=== PATIENT | female | born 1965 | race American Indian/Alaskan Native ===

== ENCOUNTER 2016-09-14 08:41 | Inpatient (IN) | payer MEDICAID, OTHER ==
[2016-09-14 08:46] VITALS: BMI 21.4
--- NOTE | 2016-09-14 09:07 | ED PDOC ---
Arrival/HPI - General Chief Complaint: Chest Pain Time Seen by Provider: 09/14/16 08:45 Historian: Patient - History of Present Illness Narrative History of Present Illness (Text): 09/14/16 09:03 Codi Pope is a 51 year old female, with a history of asthma, COPD, and emphysema, presents to the emergency department complaining of 5 day duration of chest pain and shortness of breath. States that pain is mostly on right- sided chest, which is worsened with deep inspiration. Also complains of neck and back pain which has been constant since onset. States she took Motrin yesterday for minimal relief. Denies fever, chills, headache, dizziness, nausea , vomiting, diarrhea, urinary symptoms, or any other complaints at this time. Time/Duration: < week (5 days ) Symptom Onset: Gradual Symptom Course: Unchanged Severity Level: Mild Activities at Onset: Light Past Medical History - Provider Review Nursing Documentation Reviewed: Yes - Pulmonary Hx Asthma: Yes Hx Chronic Obstructive Pulmonary Disease (COPD): Yes Hx Emphysema: Yes - Renal Other/Comment: "englarged kidney" - Psychiatric Hx Substance Use: No - Surgical History Other/Comment: Lung transplant. right breast surgery - Anesthesia Hx Anesthesia: Yes Family/Social History - Physician Review Nursing Documentation Reviewed: Yes Family/Social History: No Known Family HX Smoking Status: Light Smoker < 10 Cigarettes Daily Hx Alcohol Use: Yes Hx Substance Use: No Allergies/Home Meds Allergies/Adverse Reactions: Allergies No Known Allergies Allergy (Verified 09/14/16 08:46) Home Medications: Home Meds Medication Instructions Recorded Confirmed Unobtainable 09/14/16 09/14/16 Review of Systems - Review of Systems Constitutional: absent: Fatigue, Fevers Eyes: absent: Eye Pain ENT: absent: Hearing Changes Respiratory: SOB. absent: Cough, Sputum Cardiovascular: Chest Pain. absent: Palpitations Gastrointestinal: Abdominal Pain. absent: Diarrhea, Nausea, Vomiting Musculoskeletal: Back Pain, Neck Pain Skin: absent: Rash Neurological: absent: Headache, Dizziness, Focal Weakness Physical Exam - Physical Exam Narrative Physical Exam (Text): 09/14/16 09:07 Head: Atraumatic. Normocephalic. Eyes: PERRL. EOMI. Conjunctivae are not pale. ENT: Mucous membranes are moist and intact. Oropharynx is clear and symmetric. Neck: Supple. Full ROM. No JVD. No lymphadenopathy. upper thoracic midline tenderness to palpation. Cardiovascular: Regular rate. Regular rhythm. No murmurs, rubs, or gallops. Distal pulses are 2+ and symmetric. Radial pulses equal bilaterally. Pulmonary/Chest: Tachypneic. Palpable mid and right chest wall pain. No crepitus. Diminished breath sounds bilaterally. No wheezing, rales or rhonchi. Abdominal: Soft and non-distended. There is no tenderness. No rebound, guarding, or rigidity. No organomegaly. Good bowel sounds. Back: No CVA tenderness. Palpable right upper back pain, midline pain with no edema or erythema Extremities: No edema. No cyanosis. No clubbing. Full range of motion in all extremities. No calf tenderness. Skin: Skin is warm and dry. No petechiae. No purpura. No vesicular rash. Neurological: Alert, awake, and oriented to person, place, time, and situation. Normal speech. Motor and sensory intact Psychiatric: Good eye contact. Normal interaction, affect, and behavior. 09/14/16 15:04 Vital Signs Reviewed: Yes Vital Signs Temp Pulse Resp BP Pulse Ox 09/14/16 14:00 91 H 24 145/65 99 09/14/16 12:00 112 H 21 151/76 H 100 09/14/16 10:41 109 H 20 123/52 L 100 09/14/16 08:41 98.1 F 75 20 134/87 100 Temperature: Afebrile Blood Pressure: Normal Pulse: Regular Respiratory Rate: Normal Appearance: Positive for: Well-Appearing, Non-Toxic, Uncomfortable Pain Distress: Moderate Mental Status: Positive for: Alert and Oriented X 3 Medical Decision Making ED Course and Treatment: 09/14/16 09:09 Impression: A 51 year old female who presents to the emergency department complaining of chest pain, neck pain and back pain for past 5 days. Differential Diagnosis include but are not limited to: muscle strain vs. COPD vs. ACS Plan: -- EKG -- Labs, cardiac enzymes -- Chest X-ray -- Urinalysis -- Reassess and disposition Progress Notes: There is a palpable component to patient's chest and back pain. No trauma reported. No pneumothorax noted. Sats 100%, although patient feels SOB. Ddimer negative. No calf pain. She is a heavy smoker "recently quit". Duonebs and steroids given, on re-exam, less dyspneic, saturations remain 100%. Will admit to telemetry given hx of chest pain, as well as copd exacerbation. No trauma reported. No mediastinal widening. Patient's BP and pulse equal in both upper extremities. 09/14/16 10:17 Case discussed with , who is aware and agrees with the plan to admit patient to telemetry for COPD exacerbation. Accepts patient under hospitalist service. - Lab Interpretations Lab Results: 09/14/16 08:50 09/14/16 08:50 Lab Results 09/14/16 09:00: Urine Color Yellow, Urine Appearance Clear, Urine pH 6.5, Ur Specific Burke <= 1.005, Urine Protein Negative, Urine Glucose (UA) Negative, Urine Ketones Negative, Urine Blood Negative, Urine Nitrate Negative, Urine Bilirubin Negative, Urine Urobilinogen 0.2, Ur Leukocyte Esterase Negative 09/14/16 08:50: Sodium 139, Potassium 3.9, Chloride 104, Carbon Dioxide 25, Anion Gap 14, BUN 7, Creatinine 0.7, Est GFR ( Amer) > 60, Est GFR (Non- Af Amer) > 60, Random Glucose 110, Calcium 10.0, Total Bilirubin 1.0, AST 23, ALT 26, Alkaline Phosphatase 80, Lactate Dehydrogenase 367, Total Creatine Kinase 90, Troponin I < 0.01, Total Protein 7.8, Albumin 4.2, Globulin 3.6, Albumin/Globulin Ratio 1.2, Triglycerides 73, Cholesterol 214 H, LDL Cholesterol Direct 108, HDL Cholesterol 78 H 09/14/16 08:50: PT 10.9, INR 1.01, APTT 28.4, D-Dimer, Quantitative 0.19 09/14/16 08:50: WBC 5.2, RBC 4.66, Hgb 12.9, Hct 38.4, MCV 82.4, MCH 27.7, MCHC 33.6, RDW 13.6, Plt Count 277, MPV 9.4, Gran % 41.8 L, Lymph % (Auto) 50.2 H, Summers % (Auto) 6.6 H, Eos % (Auto) 1.0 L, Baso % (Auto) 0.4, Gran # 2.17, Lymph # 2.6, Summers # 0.3, Eos # 0.1, Baso # 0.02 I have reviewed the lab results: Yes - RAD Interpretation Radiology Orders: 09/14/16 09:02 CHEST PORTABLE [RAD] Stat - EKG Interpretation Interpreted by ED Physician: Yes Type: 12 lead EKG - Medication Orders Current Medication Orders: Acetaminophen (Tylenol 325mg Tab) 650 mg PO Q6H PRN PRN Reason: Fever >100.4 F Albuterol/Ipratropium (Duoneb 3 Mg/0.5 Mg (3 Ml) Ud) 3 ml IH Q4H KAYLEIGH Last Admin: 09/14/16 12:18 Dose: Albuterol/Ipratropium (Duoneb 3 Mg/0.5 Mg (3 Ml) Ud) 3 ml IH Q6H PRN PRN Reason: Shortness of Breath Stop: 09/15/16 00:46 Aspirin (Ecotrin) 81 mg PO DAILY KAYLEIGH Enoxaparin Sodium (Lovenox) 40 mg SC DAILY KAYLEIGH PRN Reason: Protocol Methylprednisolone (Solu-Medrol) 40 mg IVP Q12 KAYLEIGH Morphine Sulfate (Morphine) 2 mg IVP Q4 PRN PRN Reason: Pain, moderate (4-7) Last Admin: 09/14/16 13:33 Dose: 2 mg Pantoprazole Sodium (Protonix Ec Tab) 40 mg PO 0630 KAYLEIGH Discontinued Medications Albuterol/Ipratropium (Duoneb 3 Mg/0.5 Mg (3 Ml) Ud) 3 ml IH Q15M KAYLEIGH Stop: 09/14/16 10:31 Last Admin: 09/14/16 12:18 Dose: Aspirin (Aspirin Chewable) 81 mg PO STAT STA Stop: 09/14/16 09:43 Last Admin: 09/14/16 09:57 Dose: 81 mg Methylprednisolone (Solu-Medrol) 125 mg IVP STAT STA Stop: 09/14/16 09:45 Last Admin: 09/14/16 09:57 Dose: 125 mg Morphine Sulfate (Morphine) 2 mg IVP STAT STA Stop: 09/14/16 09:43 Last Admin: 09/14/16 09:57 Dose: 2 mg Re-Assess: LEONIE Pain Assessment Document 09/14/16 10:57 JOL (Rec: 09/14/16 12:17 [id number] Pain Reassessment Is this a pain reassessment? Yes Sleep Is patient sleeping during reassessment? No Presence of Pain Presence of Pain No - Scribe Statement The provider has reviewed the documentation as recorded by the Giovani Patel Provider Attestation: All medical record entries made by the Giovani were at my direction and personally dictated by me. I have reviewed the chart and agree that the record accurately reflects my personal performance of the history, physical exam, medical decision making, and the department course for this patient. I have also personally directed, reviewed, and agree with the discharge instructions and disposition. Disposition/Present on Arrival - Present on Arrival Any Indicators Present on Arrival: No History of DVT/PE: No History of Uncontrolled Diabetes: No Urinary Catheter: No History of Decub. Ulcer: No History Surgical Site Infection Following: None - Disposition Have Diagnosis and Disposition been Completed?: Yes Diagnosis: Chest pain, COPD exacerbation, Back pain Disposition: HOSPITALIZED Disposition Time: 10:00 Patient Plan: Admission, Telemetry Patient Problems: Current Active Problems Problem Status Onset Back pain Acute COPD exacerbation Acute Chest pain Acute Condition: FAIR
[2016-09-14 09:08] LABS: ADD MANUAL DIFF? NO
[2016-09-14 09:20] LABS: ALB/GLOB RATIO 1.2 (1.1-1.8); ALKALINE PHOSPHATASE 80 U/L (38-133); ALT/SGPT 26 U/L (7-56); AST/SGOT 23 U/L (15-39); BLOOD UREA NITROGEN 7 mg/dL (7-21); CARBON DIOXIDE 25 mmol/L (21-33); CHLORIDE 104 mmol/L (98-107); GFR AFRICAN-AMERICAN > 60; GLUCOSE,RANDOM 110 mg/dL (70-110); POTASSIUM 3.9 mmol/L (3.6-5.0); SODIUM 139 mmol/L (132-148); TOTAL PROTEIN 7.8 g/dL (5.8-8.3)
[2016-09-14 09:25] LABS: BASO # 0.02 K/mm3 (0.0-2.0); BASO % 0.4 % (0.0-3.0); EOS # 0.1 (0.0-0.7); GRAN # 2.17 (1.4-6.5); GRAN % 41.8 % (50.0-68.0); HEMATOCRIT 38.4 % (36.0-48.0); LYMPH # 2.6 (1.2-3.4); LYMPH % 50.2 % (22.0-35.0); MEAN CELL VOLUME 82.4 fL (80.0-105.0); MEAN CORPUSCULAR HEMOGLOBIN 27.7 pg (25.0-35.0); MEAN CORPUSCULAR HGB CONC 33.6 g/dl (31.0-37.0); MEAN PLATELET VOLUME 9.4 fl (7.0-11.0); MONO # 0.3 (0.1-0.6); MONO % 6.6 % (1.0-6.0); PLATELET COUNT 277 10^3/uL (120.0-450.0); RED CELL DISTRIBUTION WIDTH 13.6 % (11.5-14.5); WHITE BLOOD COUNT 5.2 10^3/ul (4.5-11.0)
[2016-09-14 09:32] LABS: TROPONIN I < 0.01 ng/mL
[2016-09-14] MEDS ORDERED: Morphine 2 mg/ml ISec IVP STA (09:42)
[2016-09-14] MEDS ORDERED: Albuterol-Ipratrop 3 mg / 0.5 (3 ml) UD IH STA (09:42)
[2016-09-14 09:45] LABS: INR 1.01 (0.93-1.08); PARTIAL THROMBOPLASTIN TIME 28.4 Seconds (23.7-30.8)
[2016-09-14 09:47] LABS: D DIMER 0.19 mg/L FEU (0-0.50)
[2016-09-14 09:52] LABS: PH,URINE 6.5 (4.7-8.0); URINE BILIRUBIN NEGATIVE (NEGATIVE); URINE BLOOD NEGATIVE (NEGATIVE); URINE GLUCOSE (UA) NEGATIVE (NEGATIVE); URINE KETONE NEGATIVE (NEGATIVE); URINE LEUKOCYTE ESTERASE NEGATIVE Leu/uL (NEGATIVE); URINE PROTEIN NEGATIVE mg/dL (<30 mg/dL); URINE UROBILINOGEN 0.2 E.U./dL (<1 E.U./dL)
[2016-09-14 10:03] LABS: URINE APPEARANCE CLEAR (CLEAR); URINE COLOR YELLOW (YELLOW)
--- NOTE | 2016-09-14 10:23 | RAD ---
HISTORY: chest pain COMPARISON: 01/23/2012 FINDINGS: LUNGS: No active pulmonary disease. PLEURA: No significant pleural effusion identified, no pneumothorax apparent. CARDIOVASCULAR: Normal. OSSEOUS STRUCTURES: No significant abnormalities. VISUALIZED UPPER ABDOMEN: Normal. OTHER FINDINGS: None. IMPRESSION: No active disease.
[2016-09-14] MEDS: Albuterol-Ipratrop 3 mg / 0.5 (3 ml) UD IH SCH ×6 (10:24→20:10)
--- NOTE | 2016-09-14 12:22 | CP.PCM.HP ---
<Katherine Garcia - Last Filed: 09/14/16 13:00> History of Present Illness - History of Present Illness History of Present Illness: 51 yo F w/PMhx of COPD, endocarditis, presents with 6 day history of chest pain and SOB. Chest pain is constant, in the R chest and radiation to L chest. SOB worsens with exertion. Denies F/N/V/abdominal pain, urinary or stool changes. PMhx: COPD, endocarditis Psxhx: chest tube due to prior pneumothorax Med: ventolin and incurza last filled in 2014 allergies: denies social: former smoker for one week, 0.5 pack per day for 30+ years. 3 servings of ETOH/week. denies illicit drugs family: pancreatic and gastric CA for mother. Present on Admission - Present on Admission Any Indicators Present on Admission: No Review of Systems - Review of Systems All systems: reviewed and no additional remarkable complaints except - Constitutional Constitutional: absent: Fever, Headache - Cardiovascular Cardiovascular: Chest Pain, Dyspnea - Respiratory Respiratory: Dyspnea. absent: Cough - Gastrointestinal Gastrointestinal: absent: Abdominal Pain, Diarrhea - Genitourinary Genitourinary: absent: Hematuria, Pyuria Past Patient History - Past Social History Smoking Status: Light Smoker < 10 Cigarettes Daily - PULMONARY Hx Asthma: Yes Hx Chronic Obstructive Pulmonary Disease (COPD): Yes Hx Emphysema: Yes - RENAL Other/Comment: "englarged kidney" - PSYCHIATRIC Hx Substance Use: No - SURGICAL HISTORY Other/Comment: Lung transplant. right breast surgery - ANESTHESIA Hx Anesthesia: Yes Meds Home Medications: Home Medication List Medication Instructions Recorded Confirmed Type Albuterol HFA [Ventolin HFA 90 2 puff IH [id number] #1 puff 09/15/16 Rx mcg/actuation (8 g)] Aspirin [Ecotrin] 81 mg PO DAILY #14 tab.ec 09/15/16 Rx Methylprednisolone [Medrol Dose See Taper PO DAILY #21 mg 09/15/16 Rx Pack (21 tabs)] oxyCODONE/Acetaminophen [Percocet 1 ea PO Q6 PRN #18 tab 09/15/16 Rx 5/325 mg Tab] Allergies/Adverse Reactions: Allergies Allergy/AdvReac Type Severity Reaction Status Date / Time No Known Allergies Allergy Verified 09/14/16 08:46 Physical Exam - Constitutional Appears: No Acute Distress - Head Exam Head Exam: ATRAUMATIC, NORMOCEPHALIC - Eye Exam Eye Exam: EOMI, Normal appearance - ENT Exam ENT Exam: Mucous Membranes Moist, Normal External Ear Exam - Respiratory Exam Respiratory Exam: Clear to Auscultation Bilateral, NORMAL BREATHING PATTERN Additional comments: tenderness upon palpation in mid chest and left chest - Cardiovascular Exam Cardiovascular Exam: Tachycardia, +S1, +S2 - GI/Abdominal Exam GI & Abdominal Exam: Soft. absent: Tenderness - Exam External exam: absent: Ecchymosis, Erythema - Extremities Exam Extremities exam: Positive for: pedal pulses present. Negative for: pedal edema , tenderness - Neurological Exam Neurological exam: Alert, Oriented x3 - Skin Skin Exam: Intact, Warm Results - Vital Signs Recent Vital Signs: Last Vital Signs Temp 98.1 F 09/14/16 08:41 Pulse 109 H 09/14/16 10:41 Resp 20 09/14/16 10:41 BP 123/52 L 09/14/16 10:41 Pulse Ox 100 09/14/16 10:41 - Labs Result Diagrams: 09/14/16 08:50 09/14/16 08:50 Assessment & Plan - Assessment and Plan (Free Text) Plan: 51 yo F w/PMHx of COPD, endocarditis, with 6 day hx of chest pain and SOB. CXR supports a COPD picture without other acute findings, Initial troponin under 0.01, and EXG is NSR. Tranferred to telemetry for COPD exacerbation and chest pain: Chest pain: initial troponin is under 0.01 EKG is NSR cardiac consult appreciated, Dr. Brady ASA 81 morphine 2mg IV q4 prn lipid panel f/u COPD: Dounebs q4h and prn solumedrol 40 q12 oxygen prn ordered neck and back pain: cervical and lumbar spine XR ordered morphine 2mg IV q4 prn PPx measures lovenox 40, protonix <Yesi LUNSFORD,Solange - Last Filed: 09/16/16 13:37> Results - Vital Signs Recent Vital Signs: Last Vital Signs Temp 97.9 F 09/15/16 12:00 Pulse 79 09/15/16 13:23 Resp 16 09/15/16 12:00 BP 112/69 09/15/16 12:00 Pulse Ox 96 09/15/16 05:19 - Labs Result Diagrams: 09/15/16 06:30 05/04/17 06:30 Labs: Laboratory Results - last 24 hr 09/15/16 14:00 Urine Opiates Screen Positive H Urine Methadone Screen Negative Ur Barbiturates Screen Negative Ur Phencyclidine Scrn Negative Ur Amphetamines Screen Negative U Benzodiazepines Scrn Negative U Oth Cocaine Metabols Negative U Cannabinoids Screen Negative Attending/Attestation - Attestation I have personally seen and examined this patient.: Yes I have fully participated in the care of the patient.: Yes I have reviewed all pertinent clinical information: Yes Notes (Text): 09/16/16 13:34 Patient was seen and examined with medical supply technician .Agreed with resident assessment and plan. 51 yo F with PMH of COPD, Chronic smoking, SP right lung collapse , osteoarthiritis is admitted with atypical chest pain,back pain , also has COPD exacerbation.EKG is negative for ischemic changes, has chest wall tenderness. Patient will be admitted in tele, will get serial troponin, will start on NEBS/ Steroid.We will get Cardiology consult.We will also get X rays of Neck and back. Management plan was discussed in detail with patient Education was provided.
[2016-09-14] MEDS ORDERED: Albuterol-Ipratrop 3 mg / 0.5 (3 ml) UD IH PRN (12:35)
[2016-09-14] MEDS: Morphine 2 mg/ml ISec IVP PRN ×2 (13:33→17:10)
[2016-09-14 14:36] LABS: CHOLESTEROL 214 mg/dL (130-200)
--- NOTE | 2016-09-14 15:02 | RAD ---
PROCEDURE: Radiographs of the Lumbar Spine. HISTORY: NECK BACK PAIN COMPARISON: No prior. FINDINGS: BONES: Normal alignment. No listhesis. No fracture. DISC SPACES: Unremarkable. OTHER FINDINGS: Right L4-5 and right L5-S1 mild facet arthrosis. Atherosclerotic vascular calcification -descending abdominal aorta and bifurcation IMPRESSION: No fracture or subluxation. Mild facet arthrosis predominantly right sided. Atherosclerotic vascular disease
--- NOTE | 2016-09-14 15:03 | RAD ---
PROCEDURE: Cervical Spine Radiographs. HISTORY: Pain. COMPARISON: None. FINDINGS: BONES: Straightening of the normal cervical lordosis. Minimal anterior spondylosis C6. No fracture. Dens Intact. DISC SPACES: Normal. SOFT TISSUES: Normal. No prevertebral soft tissue swelling. OTHER FINDINGS: No gross foraminal stenosis IMPRESSION: Cervical spine straightening consistent with spasm and/or positioning Minimal inferior cervical spondylosis. No fracture osseous destruction.
[2016-09-14 17:12] LABS: TROPONIN I < 0.01 ng/mL
--- NOTE | 2016-09-14 18:36 | CARD ---
APPROVED REPORT EKG Measurement Heart [id number] <Conclusion> Normal sinus rhythm Voltage criteria for left ventricular hypertrophy Abnormal ECG
--- NOTE | 2016-09-14 18:47 | CARD ---
APPROVED REPORT EKG Measurement Heart [id number] AK [id number] <Conclusion> Normal sinus rhythm with sinus arrhythmia Normal ECG
[2016-09-14 22:17] LABS: TROPONIN I < 0.01 ng/mL
[2016-09-15] MEDS: Morphine 2 mg/ml ISec IVP PRN (01:01)
[2016-09-15] MEDS: Albuterol-Ipratrop 3 mg / 0.5 (3 ml) UD IH SCH ×5 (02:19→15:53)
[2016-09-15 05:20] VITALS: O2SAT 96
[2016-09-15 07:09] LABS: ADD MANUAL DIFF? NO
[2016-09-15 07:16] LABS: BASO # 0.02 K/mm3 (0.0-2.0); BASO % 0.1 % (0.0-3.0); EOS % 0.2 % (1.5-5.0); GRAN # 11.87 (1.4-6.5); GRAN % 72.9 % (50.0-68.0); HEMATOCRIT 35.9 % (36.0-48.0); LYMPH # 3.5 (1.2-3.4); LYMPH % 21.5 % (22.0-35.0); MEAN CELL VOLUME 83.3 fL (80.0-105.0); MEAN CORPUSCULAR HEMOGLOBIN 27.4 pg (25.0-35.0); MEAN CORPUSCULAR HGB CONC 32.9 g/dl (31.0-37.0); MEAN PLATELET VOLUME 9.3 fl (7.0-11.0); MONO # 0.9 (0.1-0.6); MONO % 5.3 % (1.0-6.0); PLATELET COUNT 261 10^3/uL (120.0-450.0); RED CELL DISTRIBUTION WIDTH 13.8 % (11.5-14.5); WHITE BLOOD COUNT 16.3 10^3/ul (4.5-11.0)
[2016-09-15] MEDS ORDERED: Pantoprazole 40 mg EC Tab PO SCH (07:30)
[2016-09-15 07:39] LABS: ALB/GLOB RATIO 1.1 (1.1-1.8); ALKALINE PHOSPHATASE 58 U/L (38-133); ALT/SGPT 25 U/L (7-56); AST/SGOT 22 U/L (15-39); BILIRUBIN,TOTAL 0.8 mg/dL (0.2-1.3); BLOOD UREA NITROGEN 9 mg/dL (7-21); CALCIUM 9.6 mg/dL (8.4-10.5); CARBON DIOXIDE 28 mmol/L (21-33); CHLORIDE 103 mmol/L (98-107); GFR AFRICAN-AMERICAN > 60; GLUCOSE,RANDOM 103 mg/dL (70-110); SODIUM 137 mmol/L (132-148); TOTAL PROTEIN 7.2 g/dL (5.8-8.3)
[2016-09-15] MEDS ORDERED: MethylPREDNISolone 40 mg Vial IVP SCH ×2 (10:00→10:38)
[2016-09-15] MEDS ORDERED: Enoxaparin 40 mg Syringe SC SCH (10:00)
--- NOTE | 2016-09-15 11:59 | CARD ---
APPROVED REPORT EXAM: Two-dimensional and M-mode echocardiogram with Doppler and color Doppler. INDICATION Pulmonary Hypertention Chest Pain 2D DIMENSIONS Left Atrium (2D)3.1 (1.6-4.0cm)IVSd0.8 (0.7-1.1cm) LVDd3.9 (3.9-5.9cm)PWd1.0 (0.7-1.1cm) LVDs2.7 (2.5-4.0cm)FS (%) 30.5 % LVEF (%)58.5 (>50%) M-Mode DIMENSIONS Aortic Root2.50 (2.2-3.7cm)Aortic Cusp Exc.1.80 (1.5-2.0cm) Aortic Valve AoV Peak Rmschwil747.0cm/Lon Peak GR.7mmHg Mitral Valve MV E Poarjjwp22.0cm/sMV A Acijemve29.2cm/sE/A ratio1.2 TDI E/Lateral E'0.0E/Medial E'0.0 Tricuspid Valve TR Peak [id number]/sRAP [id number] Peak Gr.17mmHg [id number] LEFT VENTRICLE The left ventricle is normal size. There is normal left ventricular wall thickness. The left ventricular function is normal. The left ventricular ejection fraction is within the normal range. There is normal LV segmental wall motion. The left ventricular diastolic function is normal. No left ventricle thrombus noted on this study. RIGHT VENTRICLE The right ventricle is normal size. There is normal right ventricular wall thickness. The right ventricular systolic function is normal. ATRIA The left atrium size is normal. The right atrium size is normal. AORTIC VALVE The aortic valve is normal in structure. No aortic regurgitation is present. MITRAL VALVE The mitral valve is normal in structure. There is no mitral valve regurgitation noted. TRICUSPID VALVE There is no pulmonary hypertension. GREAT VESSELS The aortic root is normal in size. The IVC is normal in size and collapses >50% with inspiration. PERICARDIAL EFFUSION There is no pericardial effusion. <Conclusion> There is normal left ventricular wall thickness. The left ventricular function is normal. The left ventricular ejection fraction is within the normal range. There is normal LV segmental wall motion. The left ventricular diastolic function is normal.
--- NOTE | 2016-09-15 12:00 | CON ---
DATE: 09/15/2016 CARDIOLOGY CONSULT REASON FOR CONSULTATION: Chest pain. HISTORY OF PRESENT ILLNESS: The patient is a 51-year-old female who is a smoker and a drinker, has a history of bronchial asthma, presented because of sharp left-sided chest pain, wors ening with deep breathing and coughing. The patient also reported right-sided subcostal pain associa bri with left-sided discomfort. The patient has been taking Motrin for relief of her chest pain, but without significant improvement. The patient has a history of chest tube placement on the right torrey e for lung collapse, according to the patient, more than 10 years ago. The patient denies any histor y of tuberculosis and is unaware of any prior cardiac history. SOCIAL HISTORY: The patient is a smoker, nondrinker. She is unemployed. She used to work in a [email or web address]. MEDICATIONS: Albuterol inhaler, aspirin 81 mg once a day, Lovenox 40 mg subcutaneously once a day, S lawrence-Medrol 40 mg ____ daily, and Tylenol p.r.n. PHYSICAL EXAMINATION: GENERAL: The patient is a middle-aged female who does not appear to be in any distress. VITAL SIGNS: Blood pressure 115/67, heart rate 80, temperature 98.5, respirations 20. HEENT: Normocephalic. NECK: No JVD. CHEST: Clear. HEART: S1, S2 regular. EXTREMITIES: No edema. LABORATORY DATA: Hemoglobin and hematocrit 11.8 and 35.9, white count 16.3. Platelet count is withi n normal limits. Today's SMA-7 is entirely within normal limits. Three sets of troponins are negati ve. Total cholesterol is 214. PT, PTT within normal level. D-dimer is within normal limits. EKG revealed normal sinus rhythm, voltage criteria for LVH. Cervical spine x-ray: ____ consistent with spasm and/or positioning. Lumbar spine x-ray: No fracture or subluxation. Chest x-ray revealed a vertical heart over expanded lungs, and right lower lobe infiltrate. ASSESSMENT: 1. Atypical chest pain. Myocardial infarction is ruled out. 2. Rule out pleuritic chest pain. 3. Rule out right lower lobe pneumonia. RECOMMENDATIONS: Continue current aspirin, albuterol, and Solu-Medrol therapy. I would review the e chocardiographic study performed today and obtain urine for drug screen. Edward Brady MD cc: [id number] TT: 09/15/2016 12:00:33 Confirmation # [id number] Dictation # [id number]
[2016-09-15 12:18] VITALS: BP 112/69; RESP 16; TEMP 97.9
[2016-09-15 13:24] VITALS: PULSE 79
--- NOTE | 2016-09-15 15:49 | CP.PCM.DIS ---
<Katherine Garcia - Last Filed: 09/16/16 06:51> Provider - Provider Date of Admission: 09/14/16 10:17 Attending physician: Solange Key MD Primary care physician: no PCP Consults: Cardiology, Dr. Brady Time Spent in preparation of Discharge (in minutes): 35 Hospital Course - Lab Results Lab Results: Most Recent Lab Values WBC 16.3 10^3/ul (4.5-11.0) H D 09/15/16 06:30 RBC 4.31 10^6/uL (3.5-6.1) 09/15/16 06:30 Hgb 11.8 gm/dL (12.0-16.0) L 09/15/16 06:30 Hct 35.9 % (36.0-48.0) L 09/15/16 06:30 MCV 83.3 fL (80.0-105.0) 09/15/16 06:30 MCH 27.4 pg (25.0-35.0) 09/15/16 06:30 MCHC 32.9 g/dl (31.0-37.0) 09/15/16 06:30 RDW 13.8 % (11.5-14.5) 09/15/16 06:30 Plt Count 261 10^3/uL (120.0-450.0) 09/15/16 06:30 MPV 9.3 fl (7.0-11.0) 09/15/16 06:30 Gran % 72.9 % (50.0-68.0) H 09/15/16 06:30 Lymph % (Auto) 21.5 % (22.0-35.0) L 09/15/16 06:30 Wal[place] % (Auto) 5.3 % (1.0-6.0) 09/15/16 06:30 Eos % (Auto) 0.2 % (1.5-5.0) L 09/15/16 06:30 Baso % (Auto) 0.1 % (0.0-3.0) 09/15/16 06:30 Gran # 11.87 (1.4-6.5) H 09/15/16 06:30 Lymph # 3.5 (1.2-3.4) H 09/15/16 06:30 Waldo # 0.9 (0.1-0.6) H 09/15/16 06:30 Eos # 0.0 (0.0-0.7) 09/15/16 06:30 Baso # 0.02 K/mm3 (0.0-2.0) 09/15/16 06:30 PT 10.9 Seconds (9.9-11.8) 09/14/16 08:50 INR 1.01 (0.93-1.08) 09/14/16 08:50 APTT 28.4 Seconds (23.7-30.8) 09/14/16 08:50 D-Dimer, Quantitative 0.19 mg/L FEU (0-0.50) 09/14/16 08:50 Sodium 137 mmol/L (132-148) 09/15/16 06:30 Potassium 4.0 mmol/L (3.6-5.0) 09/15/16 06:30 Chloride 103 mmol/L (98-107) 09/15/16 06:30 Carbon Dioxide 28 mmol/L (21-33) 09/15/16 06:30 Anion Gap 10 (10-20) 09/15/16 06:30 BUN 9 mg/dL (7-21) 09/15/16 06:30 Creatinine 0.7 mg/dL (0.5-1.4) 09/15/16 06:30 Est GFR ( Amer) > 60 09/15/16 06:30 Est GFR (Non-Af Amer) > 60 09/15/16 06:30 Random Glucose 103 mg/dL (70-110) 09/15/16 06:30 Calcium 9.6 mg/dL (8.4-10.5) 09/15/16 06:30 Total Bilirubin 0.8 mg/dL (0.2-1.3) 09/15/16 06:30 AST 22 U/L (15-39) 09/15/16 06:30 ALT 25 U/L (7-56) 09/15/16 06:30 Alkaline Phosphatase 58 U/L (38-133) 09/15/16 06:30 Lactate Dehydrogenase 298 U/L (333-699) L 09/14/16 21:49 Total Creatine Kinase 76 U/L (35-230) 09/14/16 21:49 Troponin I < 0.01 ng/mL 09/14/16 21:49 Total Protein 7.2 g/dL (5.8-8.3) 09/15/16 06:30 Albumin 3.8 g/dL (3.0-4.8) 09/15/16 06:30 Globulin 3.4 gm/dL 09/15/16 06:30 Albumin/Globulin Ratio 1.1 (1.1-1.8) 09/15/16 06:30 Triglycerides 73 mg/dL (35-160) 09/14/16 08:50 Cholesterol 214 mg/dL (130-200) H 09/14/16 08:50 LDL Cholesterol Direct 108 mg/dL (0-129) 09/14/16 08:50 HDL Cholesterol 78 mg/dL (29-60) H 09/14/16 08:50 Urine Color Yellow (YELLOW) 09/14/16 09:00 Urine Appearance Clear (CLEAR) 09/14/16 09:00 Urine pH 6.5 (4.7-8.0) 09/14/16 09:00 Ur Specific [place] <= 1.005 (1.005-1.035) 09/14/16 09:00 Urine Protein Negative mg/dL (<30 mg/dL) 09/14/16 09:00 Urine Glucose (UA) Negative mg/dL (NEGATIVE) 09/14/16 09:00 Urine Ketones Negative mg/dL (NEGATIVE) 09/14/16 09:00 Urine Blood Negative (NEGATIVE) 09/14/16 09:00 Urine Nitrate Negative (NEGATIVE) 09/14/16 09:00 Urine Bilirubin Negative (NEGATIVE) 09/14/16 09:00 Urine Urobilinogen 0.2 E.U./dL (<1 E.U./dL) 09/14/16 09:00 Ur Leukocyte Esterase Negative Liana/uL (NEGATIVE) 09/14/16 09:00 Urine HCG, Qual Negative (NEGATIVE) 09/14/16 19:17 Urine Opiates Screen Positive (NEGATIVE) H 09/15/16 14:00 Urine Methadone Screen Negative (NEGATIVE) 09/15/16 14:00 Ur Barbiturates Screen Negative (NEGATIVE) 09/15/16 14:00 Ur Phencyclidine Scrn Negative (NEGATIVE) 09/15/16 14:00 Ur Amphetamines Screen Negative (NEGATIVE) 09/15/16 14:00 U Benzodiazepines Scrn Negative (NEGATIVE) 09/15/16 14:00 U Oth Cocaine Metabols Negative (NEGATIVE) 09/15/16 14:00 U Cannabinoids Screen Negative (NEGATIVE) 09/15/16 14:00 - Hospital Course Hospital Course: 51 yo F w/PMhx of COPD, endocarditis, initially presented with 6 day history of chest pain and SOB. Chest pain is constant, in the R chest and radiation to L chest. SOB worsens with exertion. Initial troponin is less than 0.01, EKG is NSR without ST elevations or depressions. No leukocytosis on labs and pt afebrile. Transferred to telemetry for COPD exacerbation and chest pain: For the chest pain, cardiac consult appreciated, and ASA 81 started, with prn morphine for pain. Lipid panel based AHA ACC risk for 10 year risk is calculated as 2% without hypertriglyceridemia so no indication for starting a statin. Other troponins also negative and ACS ruled out. COPD treated with Dounebs, tapering dose of solumedrol. c/o neck and back pain : cervical and lumbar spine XR did not show any acute process pain control with morphine 2mg IV q4 prn Pt discharged in fair condition with no wheezing on physical exam. Given the following instructions: "You are discharged home. Please start new medications of Medrol dose pack standard taper, albuterol HFA, aspirin 81 mg by mouth once daily, and percocet 5 /325 tab with one tab by mouth every 6 hours as needed. Please follow-up with primary medical doctor of choice or [facility] within a week. Please return to emergency department for worsening of symptoms. " Discharge Exam - Head Exam Head Exam: ATRAUMATIC, NORMOCEPHALIC - Eye Exam Eye Exam: EOMI, Normal appearance - ENT Exam ENT Exam: Mucous Membranes Moist, Normal Exam - Respiratory Exam Respiratory Exam: NORMAL BREATHING PATTERN, UNREMARKABLE - Cardiovascular Exam Cardiovascular Exam: +S1, +S2. absent: Bradycardia - GI/Abdominal Exam GI & Abdominal Exam: Soft. absent: Tenderness - Exam External exam: absent: Ecchymosis, Erythema - Extremities Exam Extremities exam: normal capillary refill, pedal pulses present - Neurological Exam Neurological exam: Alert, Oriented x3 - Skin Skin Exam: Intact, Normal Color Discharge Plan - Discharge Medications Prescriptions: Albuterol HFA [Ventolin HFA 90 mcg/actuation (8 g)] 2 puff IH [id number] #1 puff Aspirin [Ecotrin] 81 mg PO DAILY #14 tab.ec Methylprednisolone [Medrol Dose Pack (21 tabs)] See Taper PO DAILY #21 mg oxyCODONE/Acetaminophen [Percocet 5/325 mg Tab] 1 ea PO Q6 PRN #18 tab PRN Reason: Pain, Severe (8-10) - Follow Up Plan Condition: FAIR Disposition: HOME/ ROUTINE Instructions: Chest Pain (ED), Chest Pain (DC), Chest Pain (GEN) Additional Instructions: You are discharged home. Please start new medications of Medrol dose pack standard taper, albuterol HFA, aspirin 81 mg by mouth once daily, and percocet 5 /325 tab with one tab by mouth every 6 hours as needed. Please follow-up with primary medical doctor of choice or [facility] within a week. Please return to emergency department for worsening of symptoms. Referrals: [facility] at [facility] [place]] <Yesi LUNSFORD,Solange - Last Filed: 09/16/16 13:41> Provider - Provider Date of Admission: 09/14/16 10:17 Attending physician: Solange Key MD Hospital Course - Lab Results Lab Results: Most Recent Lab Values WBC 16.3 10^3/ul (4.5-11.0) H D 09/15/16 06:30 RBC 4.31 10^6/uL (3.5-6.1) 09/15/16 06:30 Hgb 11.8 gm/dL (12.0-16.0) L 09/15/16 06:30 Hct 35.9 % (36.0-48.0) L 09/15/16 06:30 MCV 83.3 fL (80.0-105.0) 09/15/16 06:30 MCH 27.4 pg (25.0-35.0) 09/15/16 06:30 MCHC 32.9 g/dl (31.0-37.0) 09/15/16 06:30 RDW 13.8 % (11.5-14.5) 09/15/16 06:30 Plt Count 261 10^3/uL (120.0-450.0) 09/15/16 06:30 MPV 9.3 fl (7.0-11.0) 09/15/16 06:30 Gran % 72.9 % (50.0-68.0) H 09/15/16 06:30 Lymph % (Auto) 21.5 % (22.0-35.0) L 09/15/16 06:30 Waldo % (Auto) 5.3 % (1.0-6.0) 09/15/16 06:30 Eos % (Auto) 0.2 % (1.5-5.0) L 09/15/16 06:30 Baso % (Auto) 0.1 % (0.0-3.0) 09/15/16 06:30 Gran # 11.87 (1.4-6.5) H 09/15/16 06:30 Lymph # 3.5 (1.2-3.4) H 09/15/16 06:30 Waldo # 0.9 (0.1-0.6) H 09/15/16 06:30 Eos # 0.0 (0.0-0.7) 09/15/16 06:30 Baso # 0.02 K/mm3 (0.0-2.0) 09/15/16 06:30 PT 10.9 Seconds (9.9-11.8) 09/14/16 08:50 INR 1.01 (0.93-1.08) 09/14/16 08:50 APTT 28.4 Seconds (23.7-30.8) 09/14/16 08:50 D-Dimer, Quantitative 0.19 mg/L FEU (0-0.50) 09/14/16 08:50 Sodium 137 mmol/L (132-148) 09/15/16 06:30 Potassium 4.0 mmol/L (3.6-5.0) 09/15/16 06:30 Chloride 103 mmol/L (98-107) 09/15/16 06:30 Carbon Dioxide 28 mmol/L (21-33) 09/15/16 06:30 Anion Gap 10 (10-20) 09/15/16 06:30 BUN 9 mg/dL (7-21) 09/15/16 06:30 Creatinine 0.7 mg/dL (0.5-1.4) 09/15/16 06:30 Est GFR ( Amer) > 60 09/15/16 06:30 Est GFR (Non-Af Amer) > 60 09/15/16 06:30 Random Glucose 103 mg/dL (70-110) 09/15/16 06:30 Calcium 9.6 mg/dL (8.4-10.5) 09/15/16 06:30 Total Bilirubin 0.8 mg/dL (0.2-1.3) 09/15/16 06:30 AST 22 U/L (15-39) 09/15/16 06:30 ALT 25 U/L (7-56) 09/15/16 06:30 Alkaline Phosphatase 58 U/L (38-133) 09/15/16 06:30 Lactate Dehydrogenase 298 U/L (333-699) L 09/14/16 21:49 Total Creatine Kinase 76 U/L (35-230) 09/14/16 21:49 Troponin I < 0.01 ng/mL 09/14/16 21:49 Total Protein 7.2 g/dL (5.8-8.3) 09/15/16 06:30 Albumin 3.8 g/dL (3.0-4.8) 09/15/16 06:30 Globulin 3.4 gm/dL 09/15/16 06:30 Albumin/Globulin Ratio 1.1 (1.1-1.8) 09/15/16 06:30 Triglycerides 73 mg/dL (35-160) 09/14/16 08:50 Cholesterol 214 mg/dL (130-200) H 09/14/16 08:50 LDL Cholesterol Direct 108 mg/dL (0-129) 09/14/16 08:50 HDL Cholesterol 78 mg/dL (29-60) H 09/14/16 08:50 Urine Color Yellow (YELLOW) 09/14/16 09:00 Urine Appearance Clear (CLEAR) 09/14/16 09:00 Urine pH 6.5 (4.7-8.0) 09/14/16 09:00 Ur Specific [place] <= 1.005 (1.005-1.035) 09/14/16 09:00 Urine Protein Negative mg/dL (<30 mg/dL) 09/14/16 09:00 Urine Glucose (UA) Negative mg/dL (NEGATIVE) 09/14/16 09:00 Urine Ketones Negative mg/dL (NEGATIVE) 09/14/16 09:00 Urine Blood Negative (NEGATIVE) 09/14/16 09:00 Urine Nitrate Negative (NEGATIVE) 09/14/16 09:00 Urine Bilirubin Negative (NEGATIVE) 09/14/16 09:00 Urine Urobilinogen 0.2 E.U./dL (<1 E.U./dL) 09/14/16 09:00 Ur Leukocyte Esterase Negative Liana/uL (NEGATIVE) 09/14/16 09:00 Urine HCG, Qual Negative (NEGATIVE) 09/14/16 19:17 Urine Opiates Screen Positive (NEGATIVE) H 09/15/16 14:00 Urine Methadone Screen Negative (NEGATIVE) 09/15/16 14:00 Ur Barbiturates Screen Negative (NEGATIVE) 09/15/16 14:00 Ur Phencyclidine Scrn Negative (NEGATIVE) 09/15/16 14:00 Ur Amphetamines Screen Negative (NEGATIVE) 09/15/16 14:00 U Benzodiazepines Scrn Negative (NEGATIVE) 09/15/16 14:00 U Oth Cocaine Metabols Negative (NEGATIVE) 09/15/16 14:00 U Cannabinoids Screen Negative (NEGATIVE) 09/15/16 14:00 Attending/Attestation - Attestation I have personally seen and examined this patient.: Yes I have fully participated in the care of the patient.: Yes I have reviewed all pertinent clinical information, including history, physical exam and plan: Yes Notes (Text): 09/16/16 13:38 Patient was seen and examined with medical specialist .Agreed with resident assessment and plan. 51 yo F with PMH of COPD, Chronic smoking, SP right lung collapse , osteoarthiritis is admitted with atypical chest pain,back pain , also had COPD exacerbation.EKG was negative for ischemic changes, has chest wall tenderness.Patient serial troponins are normal.Echo showed normal systolic function.Patient was evaluated by cardiology, no further work up is recommended. Patient COPD has improved.She is not wheezing and is on rom air.She will be started on tapering dose of Prednisone. Patient was evaluated by PT prior to discharge.She is ambulatory at the time of discharge.Pain is better controlled.She has been given 3 days supply of Percoct 5/325 for severe back and neck pain.This was discussed in detail with her. Management plan was discussed in detail with patient Education was provided.
== END 2016-09-15 16:34 | disposition home or self-care (01) | DRG 88 ==
LOC: ED 08:41 → ERH 10:17 → 2RNO 15:25
PROVIDERS: ADMIT Internal Medicine; ATTEND Internal Medicine
DX: J44.1 Chronic obstructive pulmonary disease with (acute) exacerbation (principal); Z94.2 Lung transplant status; I38 Endocarditis, valve unspecified; F17.210 Nicotine dependence, cigarettes, uncomplicated; J45.909 Unspecified asthma, uncomplicated; R07.9 Chest pain, unspecified; M54.9 Dorsalgia, unspecified; M54.2 Cervicalgia; M19.90 Unspecified osteoarthritis, unspecified site; R07.89 Other chest pain; Z79.82 Long term (current) use of aspirin; Z80.0 Family history of malignant neoplasm of digestive organs

== ENCOUNTER 2017-05-10 17:57 | Emergency (ER) | payer MEDICAID, OTHER ==
[2017-05-10 18:08] VITALS: BMI 22.6
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
[2017-05-10 19:30] VITALS: BP 105/84; PULSE 92; RESP 17; TEMP 98; O2SAT 98
--- NOTE | 2017-05-11 17:57 | CARD ---
APPROVED REPORT EKG Measurement Heart [id number] <Conclusion> Sinus tachycardia Possible Left atrial enlargement Left ventricular hypertrophy Abnormal ECG
== END 2017-05-10 19:30 | disposition home or self-care (01) ==
LOC: ED 17:57
DX: Z04.8 Encounter for examination and observation for other specified reasons (principal)

== ENCOUNTER 2017-09-08 14:39 | Inpatient (IN) | payer OTHER ==
[2017-09-08 15:00] VITALS: BMI 20.2
[2017-09-08] MEDS ORDERED: Sodium Chloride 0.9% 500 ML IV STA (15:11)
--- NOTE | 2017-09-08 15:15 | ED PDOC ---
Arrival/HPI - General Chief Complaint: Medical Clearance Time Seen by Provider: 09/08/17 15:03 Historian: Patient - History of Present Illness Narrative History of Present Illness (Text): 09/08/17 15:13 52 year old female, with past medical history of asthma, COPD and emphysema, was referred to the emergency department from Dr. Lopez's office for abnormal blood results and severe anemia prior to ED arrival. Patient informs feeling progressively weak and fatigue, shortness of breath worse with exertion and chest pain since after 2016. Patient additionally informs daily night time sweats, questionable weight loss and loss of appetite. Patient informs right sided neck discomfort, bilateral hip and back pain but denies any trauma. Patient informs intact urination and normal bowel movement, with last bowel movement this morning appearing green in color. Patient denies any bloody episode but expresses some light headedness with the feeling of passing out. Patient denies any fever, nausea, vomiting, diarrhea, abdominal pain, LOC, or any other complaints. Patient arrived to the emergency department for further evaluation. PCP: Dr. Lara Oncologist: Dr. Lopez Time/Duration: Prior to Arrival Symptom Onset: Gradual Symptom Course: Unchanged Activities at Onset: Light Context: Other (Dr. Lopez's office) Past Medical History - Provider Review Nursing Documentation Reviewed: Yes - Travel History Have you recently traveled outside [place] w/in the past 3 mons?: No - Past History Past History: No Previous - Infectious Disease Hx of Infectious Diseases: None - Tetanus Immunization Tetanus Immunization: Unknown - Reproductive Menopause: Yes Currently : No - Pulmonary Hx Chronic Obstructive Pulmonary Disease (COPD): Yes - Neurological Hx Neurological Disorder: No - HEENT Hx HEENT Disorder: No - Renal Other/Comment: "englarged kidney" - Endocrine/Metabolic Hx Endocrine Disorders: No - Hematological/Oncological Hx Blood Disorders: No - Integumentary Hx Dermatological Disorder: No - Musculoskeletal/Rheumatological Hx Musculoskeletal Disorders: No - Genitourinary/Gynecological Hx Genitourinary Disorders: No - Psychiatric Hx Depression: Yes Hx Substance Use: No - Surgical History Other/Comment: Lung transplant. right breast surgery/ righjt breast mastecomy - Anesthesia Hx Anesthesia: Yes Family/Social History - Physician Review Nursing Documentation Reviewed: Yes Family/Social History: No Known Family HX Smoking Status: Former Smoker Hx Alcohol Use: No Hx Substance Use: No Hx Substance Use Treatment: No Allergies/Home Meds Allergies/Adverse Reactions: Allergies No Known Allergies Allergy (Verified 09/08/17 16:41) Review of Systems - Physician Review All systems were reviewed & negative as marked: Yes - Review of Systems Constitutional: Fatigue, Night Sweats. absent: Fevers Eyes: Normal ENT: Normal Respiratory: SOB Cardiovascular: Chest Pain Gastrointestinal: Appetite Changes. absent: Abdominal Pain, Stool Changes, Diarrhea, Nausea, Vomiting, Hematochezia Genitourinary Female: Normal. absent: Dysuria, Hematuria Musculoskeletal: Back Pain, Neck Pain Skin: Normal Neurological: Dizziness Endocrine: Normal Hemo/Lymphatic: Normal Psychiatric: Normal Physical Exam Vital Signs Reviewed: Yes Vital Signs Temp Pulse Resp BP Pulse Ox 09/08/17 19:33 98 F 74 18 116/70 09/08/17 19:31 74 17 116/70 100 09/08/17 18:59 98.0 F 75 18 113/64 98 09/08/17 17:37 81 18 115/65 98 09/08/17 15:34 89 18 117/69 98 09/08/17 15:00 98.0 F 93 H 20 119/72 98 Temperature: Afebrile Blood Pressure: Normal Pulse: Regular Respiratory Rate: Normal Appearance: Positive for: Non-Toxic, Uncomfortable, Other (alert/awake, GCS = 15 , oriented x 3, resting in bed, uncomfortable, NAD; cooperative; + fatigued/weak ) Pain Distress: Other (No acute pain, resting in bed.) Mental Status: Positive for: Alert and Oriented X 3 - Systems Exam Head: Present: Atraumatic, Normocephalic Pupils: Present: PERRL, Other (no nystagmus, no photophobia, sclera slightly icteric, visual field intact b/l) Extroacular Muscles: Present: EOMI Conjunctiva: Present: Normal Ears: Present: Normal Mouth: Present: Dry, Normal Teeth, Other (uvula/tongue are midline, no exudate/ lesions, no drooling/stridor, no dysphonia) Pharnyx: Present: Normal Nose (External): Present: Atraumatic Nose (Internal): Present: Normal Inspection Neck: Present: Normal Range of Motion, Trachea Midline, Other (intact ROM, no midline tenderness, no nuchal rigidity, no menigneal signs, no step off). No: Meningeal Signs, MIDLINE TENDERNESS Respiratory/Chest: Present: Clear to Auscultation, Good Air Exchange, Other ( CTA b/l, no w/r/r, no accessory muscle use noted, no tachypenia). No: Respiratory Distress, Accessory Muscle Use Cardiovascular: Present: Regular Rate and Rhythm, Normal S1, S2. No: Murmurs Abdomen: Present: Normal Bowel Sounds, Other (well nourished female, no focal tenderness, no masses/rebound/guarding/rigidity, no jensen's sign, no mcburney' s point tenderness). No: Tenderness, Distention, Peritoneal Signs, Rebound, Guarding Back: Present: Normal Inspection, Other (no midline tenderness). No: CVA Tenderness, Midline Tenderness, Paraspinal Tenderness Upper Extremity: Present: Normal Inspection, Normal ROM, NORMAL PULSES, Neurovascularly Intact. No: Cyanosis, Edema Lower Extremity: Present: Normal Inspection, NORMAL PULSES, Normal ROM, Neurovascularly Intact, Other (+ ambulatory, strength 5/5 grossly intact in all limbs). No: Edema Neurological: Present: GCS=15, CN II-XII Intact, Speech Normal Skin: Present: Warm, Dry, Pale, Other (+ cap refill ~ 1 sec, no ulcerations, no petechiae, no rashes, no rashes, + pallor). No: Rashes Psychiatric: Present: Alert, Oriented x 3 Medical Decision Making ED Course and Treatment: 09/08/17 15:16 Impression: 52 year old female presents to the emergency department for abnormal blood results. Differential Diagnosis: I have considered all differential diagnoses regarding patient's chief medical complaints/clinical findings but are not limited to: symptomatic anemia. hematology syndrome; AML/MDS Plan: -- Blood type and Screen -- VBG -- EKG -- Labs -- CXR -- Blood Culture -- Urinalysis -- Reassess and disposition Prior Visits: Notes and results from previous visits were reviewed. Progress Notes: pt is currently comfortable pt is not in any distress pt is awaiting results pt is aware that she will be admitted to the hospital 09/08/17 15:[address] Piña, working with DR Lopez at his office, who had instructed patient to come to ED for immediate treatment, and who is aware of patient's visit to the emergency department now. Recommends immediate blood transfusion and admission to Dr. Lara's service. 09/08/17 15:[address] Lara, who is aware and agrees with plan to continue with blood transfusion. 09/08/17 1800 pt is made aware of her medical results agrees with admission Re-evaluation Time: 17:00 Reassessment Condition: Unchanged - Critical Care Critical Care Minutes: 45 minutes Critical Care Time: Excluding Proc Time Narrative Critical Care (Text): 09/08/17 20:14 critical care time: 45min, excluding procedure time, excluding time teaching residents/students/mid-level providers; including initial eval/diagnosis, diagnostic interpretation, re-eval, consultations, final disposition - Lab Interpretations I have reviewed the lab results: Yes Interpretation: Abnormal lab values (decr H/H) - RAD Interpretation Narrative RAD Interpretations (Text): 09/08/17 16:40 Chest X-ray reviewed by radiologist, shows: FINDINGS: LUNGS: No active pulmonary disease. PLEURA: No significant pleural effusion identified, no pneumothorax apparent. CARDIOVASCULAR: No radiographic findings to suggest acute or significant cardiovascular disease. OSSEOUS STRUCTURES: No significant abnormalities. VISUALIZED UPPER ABDOMEN: Normal. OTHER FINDINGS: None. IMPRESSION: No active disease. No significant interval change compared to the prior examination(s). Radiology Orders: 09/08/17 15:03 CHEST PORTABLE [RAD] Stat Overnight Houseperson: Radiologist - EKG Interpretation EKG Interpretation (Text): 09/08/17 20:16 NSR at 90 bpm, RAD, no ectopy, voltage criteria LVH, no st-t changes, BORDERLINE EKG; unchanged compare with old ekg 04/2017 Interpreted by ED Physician: Yes Type: 12 lead EKG Comparison: Similar to previous EKG - Medication Orders Current Medication Orders: Acetaminophen (Tylenol 325mg Tab) 650 mg PO Q4 PRN PRN Reason: Fever >100.4 F Albuterol Sulfate (Albuterol 0.083% Inhal Raysa (2.5 Mg/3 Ml) Ud) 2.5 mg INH Q6H PRN PRN Reason: Shortness of Breath Pantoprazole Sodium (Protonix Ec Tab) 40 mg PO DAILY KAYLEIGH Tiotropium [place] (Spiriva) 18 mcg IH DAILY KAYLEIGH Discontinued Medications Acetaminophen (Tylenol 325mg Tab) 650 mg PO STAT STA Stop: 09/08/17 20:06 Last Admin: 09/08/17 21:17 Dose: 650 mg Diphenhydramine HCl (Benadryl) 25 mg PO ONCE ONE Stop: 09/08/17 20:06 Last Admin: 09/08/17 21:18 Dose: 25 mg Hydrocortisone Sodium Succinate (Solu-Cortef) 100 mg IVP STAT STA Stop: 09/08/17 20:06 Last Admin: 09/08/17 21:18 Dose: 100 mg IVP Administration Document 09/08/17 21:18 [facility] (Rec: 09/08/17 21:18 [id number] Charges for Administration # of IVP Administrations 1 Sodium Chloride (Sodium Chloride 0.9%) 500 mls @ 999 mls/hr IV .Q31M STA Stop: 09/08/17 15:41 Last Admin: 09/08/17 15:57 Dose: 999 mls/hr eMAR Start Stop Document 09/08/17 15:57 SF (Rec: 09/08/17 15:58 [id number] Intravenous Solution Start Date 09/08/17 Start Time 15:57 End Date 09/08/17 End time 16:15 Total Infusion Time 18 Pneumococcal Polyvalent Vaccine (Pneumovax 23 Vaccine) 0.5 ml IM .ONCE ONE Stop: 09/08/17 19:59 Disposition/Present on Arrival - Present on Arrival Any Indicators Present on Arrival: No History of DVT/PE: No History of Uncontrolled Diabetes: No Urinary Catheter: No History of Decub. Ulcer: No History Surgical Site Infection Following: None - Disposition Have Diagnosis and Disposition been Completed?: Yes Diagnosis: Symptomatic anemia, Near syncope, Weakness, AML (acute myeloblastic leukemia) Disposition: HOSPITALIZED Disposition Time: 15:35 Patient Plan: Admission, Telemetry Condition: FAIR
--- NOTE | 2017-09-08 16:36 | RAD ---
HISTORY: Abnormal labs COMPARISON: 09/14/2016 FINDINGS: LUNGS: No active pulmonary disease. PLEURA: No significant pleural effusion identified, no pneumothorax apparent. CARDIOVASCULAR: No radiographic findings to suggest acute or significant cardiovascular disease. OSSEOUS STRUCTURES: No significant abnormalities. VISUALIZED UPPER ABDOMEN: Normal. OTHER FINDINGS: None. IMPRESSION: No active disease. No significant interval change compared to the prior examination(s).
[2017-09-08] MEDS ORDERED: Albuterol 0.083% Inhal Sol (2.5 mg/3 mL) UD INH PRN (16:54)
[2017-09-08 16:56] LABS: URINE BILIRUBIN NEGATIVE (NEGATIVE); URINE BLOOD NEGATIVE (NEGATIVE); URINE GLUCOSE (UA) NEGATIVE (NEGATIVE); URINE LEUKOCYTE ESTERASE NEGATIVE Leu/uL (NEGATIVE); URINE PROTEIN TRACE mg/dL (<30 mg/dL)
[2017-09-08 16:57] LABS: URINE APPEARANCE CLEAR (CLEAR); URINE COLOR YELLOW (YELLOW)
[2017-09-08 16:58] LABS: BASO # 0.05 K/mm3 (0.0-2.0); BASO % 0.9 % (0.0-3.0); EOS % 0.2 % (1.5-5.0); GRAN % 13.3 % (50.0-68.0); HEMOGLOBIN 7.3 g/dL (12.0-16.0); LYMPH # 4.1 (1.2-3.4); MEAN CELL VOLUME 87.5 fl (80.0-105.0); MEAN CORPUSCULAR HEMOGLOBIN 27.7 pg (25.0-35.0); MEAN CORPUSCULAR HGB CONC 31.6 g/dl (31.0-37.0); MONO # 0.4 (0.1-0.6); MONO % 7.6 % (1.0-6.0); PLATELET COUNT 110 10^3/uL (120.0-450.0); RBC 2.64 10^6/uL (3.5-6.1); RED CELL DISTRIBUTION WIDTH 25.5 % (11.5-14.5); WHITE BLOOD COUNT 5.3 10^3/ul (4.5-11.0)
[2017-09-08 17:03] LABS: VENOUS BLOOD GAS BASE EXCESS 2.5 mmol/L (0.0-2.0); VENOUS BLOOD GAS PO2 39 mm/Hg (30-55); VENOUS BLOOD PH 7.35 (7.32-7.43)
[2017-09-08 17:08] LABS: INR 1.13 (0.93-1.08); PROTHROMBIN TIME 12.9 SECONDS (9.4-12.5)
[2017-09-08 17:09] LABS: ALB/GLOB RATIO 1.6 (1.1-1.8); ALBUMIN 4.1 g/dL (3.0-4.8); ALT/SGPT 26 U/L (7-56); AST/SGOT 32 U/L (14-36); BLOOD UREA NITROGEN 13 mg/dL (7-21); CALCIUM 9.5 mg/dL (8.4-10.5); GFR AFRICAN-AMERICAN > 60; GFR NON-AFRICAN AMERICAN > 60
[2017-09-08 17:12] LABS: URINE RBC 0 - 2 /hpf (0-2); URINE WBC 0 - 2 /hpf (0-6)
[2017-09-08 17:13] LABS: URINE BACTERIA MANY (NEG)
[2017-09-08 17:20] LABS: B-TYPE NATRIURETIC PEPTIDE 195 pg/mL (0-450); TROPONIN I 0.01 ng/mL
[2017-09-08 18:02] LABS: ATYPICAL LYMPHOCYTE 4 % (0.0-0.0); EOSINOPHIL 2 % (0.0-3.0); LYMPHOCYTE 88 % (22.0-35.0); MONOCYTE 2 % (1.0-6.0); NEUTROPHIL 4 % (50.0-70.0)
[2017-09-08 18:03] LABS: CORRECTED WBC 4.4 K/mm3 (4.5-11.0); HYPOCHROMIA 2+; NUCLEATED RED BLOOD CELL 20 %; POIKILOCYTOSIS 2+; POLYCHROMASIA SLIGHT
[2017-09-08 18:04] LABS: ANISOCYTOSIS 2+; MICROCYTOSIS 2+
[2017-09-08 18:05] LABS: LARGE PLATELETS PRESENT; SCHISTOCYTES MODERATE
[2017-09-08 18:06] LABS: OVALOCYTES 1+
--- NOTE | 2017-09-08 18:36 | CARD ---
APPROVED REPORT EKG Measurement Heart [id number] <Conclusion> Normal sinus rhythm Moderate voltage criteria for LVH, may be normal variant Borderline ECG
[2017-09-08] MEDS ORDERED: Pneumococcal 23-Valent Vaccine IM ONE (19:58)
--- NOTE | 2017-09-09 04:01 | CON ---
DATE: 09/08/[address] Lopez, Hematology-Oncology, in the emergency room and medical floor. CHIEF COMPLAINT: Generalized pain, severe anemia. HISTORY OF PRESENT ILLNESS: The patient is a 52-year-old female seen at Dr. Lopez's office yesterday with significant anemic indices noted with a hemoglobin of 7.5. She was referred from Dr. Lara's office for evaluation of anemia and low platelet counts. With this, the patient is presently being admitted by the emergency room after it was noted that the patient had a significant drop in her hemoglobin with possible GI bleed considered, with possible hematopoietic disorder also suspected. With this, the patient was recommended for transfusion earlier today with orders written yesterday, but the patient not coming for her transfusion with phone calls placed, and eventually the patient was coming to the office with recommendations for hospitalization. There was an emergency phone call from [facility], Dr. Winchester, at phone number [phone], extension [phone], for Dr. Lopez regarding her flow cytometric analysis being significantly abnormal with several percent blasts noted on her peripheral blood specimen sent yesterday. Dr. Winchester suspects this is either a high-grade myelodysplastic syndrome versus acute myeloid leukemia presenting. With this, the peripheral blood was sent for cytogenic analysis. To this end, we are admitting the patient for blood transfusion and for further recommendations as indicated. At present, except for her profound weakness and joint discomfort, she is in no acute distress. ALLERGIES: NO KNOWN ALLERGIES. MEDICATIONS: Her medications include Advil, Spiriva, naproxen, albuterol, and vitamin D. PAST MEDICAL HISTORY: Significant for right lung collapse in 2006, with repair as per Dr. Powell, surgeon. She also had right breast lumpectomy also in 2006, with history of tonsillectomy and adenoidectomy surgery, with COPD history, and weight loss recently. FAMILY HISTORY AND SOCIAL HISTORY: She smoked half a pack a day for quite a significant period of time and now she used to smoke 5 cigarettes a day, with occasional alcohol including beer and shots. The patient has 1 daughter and 3 sons, alive and well; 2 sisters and 1 brother, alive and well. Her father of a heart attack. She is unemployed former freezer, assistant food service manager. REVIEW OF SYSTEMS: The 12-point review of systems, the patient had a weight loss from 132 to 118 pounds with increased aches and pains in multiple joints, complains of headache and fatigue. No energy. She cannot walk 2 blocks without stopping to rest, with the patient feeling cold. PHYSICAL EXAMINATION: VITAL SIGNS: Temperature 98, pulse 93, respirations 20, blood pressure 119/72, pulse ox 98%. GENERAL: She appears frail. HEENT: Unremarkable. NECK: Supple. HEART: Tachy rate, regular rhythm. LUNGS: Clear. ABDOMEN: Soft, nontender. EXTREMITIES: No edema. SKIN: Warm and dry. NEUROLOGIC: Awake, alert and oriented x3. Her height is 5 feet 4 inches tall, with a weight of 118 pounds. She does complain of constipation at times. LABORATORY DATA: The patient's labs were done at Dr. Lopez's office yesterday with a white blood cell count of 6.4, hemoglobin of 7.5, hematocrit of 23.7, platelet count of 140,000, with previous labs sent from Dr. Lara's office noting that the hemoglobin recently was noted to be on 08/11/2017, hemoglobin then was 8.1. The other testing of this patient is now pending including an EKG and the chest x-ray. The chest x-ray done earlier today is noted as no active disease. No significant change compared to prior exams, with EKG pending. The other testing again as reported above include a flow cytometric analysis from yesterday, 09/07/2017, showing 7% blasts with a suspicion for high-grade MDS versus AML value earlier today. ASSESSMENT: The assessment for this patient is that of severe symptomatic anemia with myelodysplastic syndrome versus acute myeloid leukemia? fatigue, joint pains, chronic obstructive pulmonary disease, smoker. PLAN: The plan for this patient after conversation with Dr. Lopez is to transfuse 2 units of packed red blood cells slowly over 3 hours each unit, with premedication of Tylenol, Benadryl and Solu-Cortef. We will also give Protonix for GI prophylaxis with Tylenol as needed for her pain. We will also give oxygen 2 liters nasal cannula until her transfusion is complete with the patient's labs to be monitored and the patient to be monitored clinically with further workup as per Dr. Lopez. The prognosis for this patient is guarded. This is a complex patient with a comprehensive medically necessary and appropriate visit carried out in excess of 1 hour's time [id number] with multiple phone calls placed with conversation with Dr. Lara, her primary doctor, and Dr. Cee, the emergency room physician. Clint Mcduffie MD
[2017-09-09 08:59] LABS: BASO # 0.03 K/mm3 (0.0-2.0); BASO % 0.8 % (0.0-3.0); GRAN # 0.83 (1.4-6.5); GRAN % 20.9 % (50.0-68.0); HEMOGLOBIN 9.7 g/dL (12.0-16.0); LYMPH % 75.8 % (22.0-35.0); MEAN CELL VOLUME 85.4 fl (80.0-105.0); MEAN CORPUSCULAR HEMOGLOBIN 28.3 pg (25.0-35.0); MEAN CORPUSCULAR HGB CONC 33.1 g/dl (31.0-37.0); MONO # 0.1 (0.1-0.6); MONO % 2.5 % (1.0-6.0); PLATELET COUNT 119 10^3/uL (120.0-450.0); RBC 3.43 10^6/uL (3.5-6.1); RED CELL DISTRIBUTION WIDTH 21.5 % (11.5-14.5)
[2017-09-09 09:05] LABS: ALB/GLOB RATIO 1.6 (1.1-1.8); ALBUMIN 4.1 g/dL (3.0-4.8); ALT/SGPT 38 U/L (7-56); AST/SGOT 28 U/L (14-36); BLOOD UREA NITROGEN 11 mg/dL (7-21); CALCIUM 9.5 mg/dL (8.4-10.5); GFR AFRICAN-AMERICAN > 60; GFR NON-AFRICAN AMERICAN > 60
[2017-09-09] MEDS: Pantoprazole 40 mg EC Tab PO SCH (10:18)
[2017-09-09] MEDS: Tiotropium 18 mcg Cap For Inhalation IH SCH (10:18)
--- NOTE | 2017-09-09 18:52 | PN ---
DATE: 09/09/2017 This is [facility]'s hospital visit on the telemetry floor. For Dr. Lopez. SUBJECTIVE: The patient is a 52-year-old female seen lying awake in bed status post transfusion of two units of packed red blood cells on an emergent basis yesterday with good effect. Her hemoglobin prior to the transfusion was 7.3, today it is 9.7 and she feels somewhat stronger. The patient is now known to have positive findings regarding a value on flow cytometric analysis with her finding showing that of 7% blasts which is significant for either high-grade myelodysplastic syndrome versus acute myeloid leukemia. With this, she is continued to be observed with consideration for discharge home and followup as an outpatient now that her severe anemia is now modestly improved with less risks associated with progression of disease and hospital followup for treatment as an outpatient. Otherwise, she is now feeling stronger. PHYSICAL EXAMINATION: VITAL SIGNS: Temperature 98.3, pulse 81, respirations 20, blood pressure 126/66, pulse ox 100%. HEENT: Unremarkable. NECK: Supple. CARDIOPULMONARY: Regular rate. LUNGS: Clear. ABDOMEN: Soft and nontender. EXTREMITIES: No edema. SKIN: Warm and dry. NEUROLOGIC: Awake and alert. LABORATORY DATA: The patient's labs were done. White blood cell count of 4; hemoglobin of 9.7, up from yesterday's 7.3 after transfusion of two units of packed cells yesterday; hematocrit of 29.3; and platelet count of 119,000, up from 110,000 yesterday. INR 1.13 with a chem metabolic panel within normal range except for total bilirubin of 2.5. The patient's other testing included an EKG done yesterday which was read as normal sinus rhythm, moderate voltage criteria for LVH, may be normal variant, borderline EKG with a chest x-ray done yesterday via the emergency room which was read as no active disease. ASSESSMENT: As per hospital lab normal value criteria, she now qualifies for pancytopenia with a white blood cell count lower than the cut off value, it is now white blood cell count of 4. Hemoglobin was 7.3, it is 9.7, still below the cut off value for low hemoglobin and platelet count of 119,000, also below the cut off value, significant for pancytopenia, new onset with severe anemia, now corrected somewhat. Myelodysplastic syndrome versus acute myeloid leukemia, fatigue, joint pain, chronic obstructive pulmonary disease, and smoker. PLAN: The plan for this patient after conversation with Dr. Lopez is to continue with present medical regimen. We will monitor clinically with labs. We will await consult with Dr. Maurer of pulmonary with consideration for discharge home with further workup once she is stable and labs are repeated. This is a complex patient with a comprehensive medically necessary and appropriate visit carried out in excess of 20 minutes [id number] time with the patient's questions answered to her satisfaction with the prognosis for this patient guarded. Clint Mcduffie MD
[2017-09-09] MEDS: Arformoterol 15 mcg/2 ml Inh Sol IH SCH (20:12)
[2017-09-09] MEDS: Budesonide 0.5 mg/2 ml Inhal Susp UD IH SCH (20:12)
[2017-09-09] MEDS ORDERED: Lidocaine 5% Patch TD STA (21:28)
--- NOTE | 2017-09-10 00:39 | CON ---
DATE: 09/09/2017 PULMONARY CONSULT REFERRING PHYSICIAN: Clint Mcduffie MD. REASON FOR CONSULT: Chronic cough, shortness of breath. HISTORY OF PRESENT ILLNESS: This is a 52-year-old female with past medical history significant for right breast mastectomy, chronic lung disease, anemia, thrombocytopenia, suspected hematopoietic disorder. She was not feeling well, tired and sleepy. I believe, transfusion was given. Feels a little better, but still has some short of breath and cough. No hemoptysis or hematemesis. No hematuria or diarrhea reported. PAST MEDICAL HISTORY: As per history of present illness. ALLERGIES: NONE KNOWN. SOCIAL HISTORY: She does smoke. Denies any alcohol use. FAMILY HISTORY: No significant cardiopulmonary disease reported. MEDICATIONS: She is on albuterol/Atrovent nebulizer every 6 hours p.r.n., Protonix 40 mg daily, Spiriva inhaled daily, Tylenol p.r.n. basis. REVIEW OF SYSTEMS: No headache. No rhinitis. Has some cough and shortness of breath. No chest pain. No nausea. No vomiting, diarrhea, leg pain, leg swelling. PHYSICAL EXAMINATION: GENERAL: No acute distress. VITAL SIGNS: Temperature is 98, heart rate is 81, respiratory rate is 20, blood pressure 126/66, pulse ox 100% on nasal cannula. HEENT: Moist mucous membranes. No ulcer or thrush noted. NECK: Supple. No JVD. LUNGS: Have a few scattered rhonchi. HEART: S1 and S2. ABDOMEN: Soft, nontender. No organomegaly. EXTREMITIES: No edema. NEUROLOGICAL: Awake, alert. Follows simple command. LABORATORY DATA: Shows hemoglobin 9.7, yesterday hemoglobin was 7.3; hematocrit today 29.3; WBC 4; platelet count is 119. INR 1.13, PTT 25. VBG showed pH 7.35, pCO2 was 53, O2 of 39. Sodium 141, potassium 3.7, chloride 104, bicarbonate 27, BUN 13, creatinine 0.7, glucose 134, calcium is 9.5, total bili 2.5, AST 28, ALT 38, alk phos is 50, albumin is 4.1, globulin 2.6. Troponin is less than 0.01. Microbiology: Blood culture, there is no growth. Had a chest x-ray done in the ER, which shows no infiltrate or effusion reported. IMPRESSION AND PLAN: Chronic obstructive lung disease, anemia with thrombocytopenia. Case discussed with Hematology Services. She was transfused. Pulmonary point of view, she is on inhaled bronchodilator, changing to Brovana, Pulmicort twice a day and continue p.r.n. DuoNeb. The patient is asked to stop smoking. We will recommend outpatient sleep study and pulmonary function test. Hematology followup. Thank you and we will follow with you. Solange Maurer MD
[2017-09-10 06:03] VITALS: O2SAT 95
[2017-09-10 07:20] LABS: BASO # 0.02 K/mm3 (0.0-2.0); BASO % 0.5 % (0.0-3.0); EOS % 0.2 % (1.5-5.0); GRAN # 0.54 (1.4-6.5); GRAN % 12.7 % (50.0-68.0); HEMOGLOBIN 8.7 g/dL (12.0-16.0); LYMPH # 3.4 (1.2-3.4); LYMPH % 80.1 % (22.0-35.0); MEAN CORPUSCULAR HEMOGLOBIN 27.7 pg (25.0-35.0); MEAN CORPUSCULAR HGB CONC 32.2 g/dl (31.0-37.0); MONO # 0.3 (0.1-0.6); MONO % 6.5 % (1.0-6.0); PLATELET COUNT 94 10^3/uL (120.0-450.0); RBC 3.14 10^6/uL (3.5-6.1); RED CELL DISTRIBUTION WIDTH 21.9 % (11.5-14.5); WHITE BLOOD COUNT 4.3 10^3/ul (4.5-11.0)
[2017-09-10 07:41] LABS: ALB/GLOB RATIO 1.4 (1.1-1.8); ALBUMIN 3.4 g/dL (3.0-4.8); ALT/SGPT 32 U/L (7-56); AST/SGOT 20 U/L (14-36); BLOOD UREA NITROGEN 19 mg/dL (7-21); CALCIUM 8.7 mg/dL (8.4-10.5); GFR AFRICAN-AMERICAN > 60; GFR NON-AFRICAN AMERICAN > 60
[2017-09-10] MEDS: Budesonide 0.5 mg/2 ml Inhal Susp UD IH SCH (08:36)
[2017-09-10] MEDS: Arformoterol 15 mcg/2 ml Inh Sol IH SCH (08:36)
[2017-09-10] MEDS: Pantoprazole 40 mg EC Tab PO SCH (10:57)
[2017-09-10] MEDS: Tiotropium 18 mcg Cap For Inhalation IH SCH (10:58)
--- NOTE | 2017-09-10 11:41 | US ---
PROCEDURE: Bilateral lower extremity venous duplex Doppler. HISTORY: dvt COMPARISON: None available. TECHNIQUE: Bilateral common femoral, superficial femoral, popliteal and posterior tibial veins were evaluated. Flow was assessed with color Doppler, compressibility, assessment of phasic flow and augmentation response. FINDINGS: COMMON FEMORAL VEIN: Right CFV: Unremarkable. Left CFV: Unremarkable. SUPERFICIAL FEMORAL VEIN: Right SFV: Unremarkable. Left SFV: Unremarkable. POPLITEAL VEIN: Right Popliteal: Unremarkable. Left Popliteal: Unremarkable. POSTERIOR TIBIAL VEIN: Right PTV: Unremarkable. Left PTV: Unremarkable. OTHER FINDINGS: None. IMPRESSION: No evidence of deep venous thrombosis.
[2017-09-10 11:56] LABS: BASO # 0.04 K/mm3 (0.0-2.0); BASO % 1.1 % (0.0-3.0); EOS % 0.6 % (1.5-5.0); GRAN # 0.39 (1.4-6.5); GRAN % 10.9 % (50.0-68.0); HEMOGLOBIN 9.2 g/dL (12.0-16.0); LYMPH % 83.7 % (22.0-35.0); MEAN CELL VOLUME 86.3 fl (80.0-105.0); MEAN CORPUSCULAR HGB CONC 32.5 g/dl (31.0-37.0); MONO # 0.1 (0.1-0.6); MONO % 3.7 % (1.0-6.0); PLATELET COUNT 98 10^3/uL (120.0-450.0); RBC 3.28 10^6/uL (3.5-6.1); WHITE BLOOD COUNT 3.6 10^3/ul (4.5-11.0)
[2017-09-10 12:04] LABS: ALB/GLOB RATIO 1.5 (1.1-1.8); ALBUMIN 3.8 g/dL (3.0-4.8); ALT/SGPT 33 U/L (7-56); AST/SGOT 17 U/L (14-36); BLOOD UREA NITROGEN 15 mg/dL (7-21); CALCIUM 9.3 mg/dL (8.4-10.5); GFR AFRICAN-AMERICAN > 60; GFR NON-AFRICAN AMERICAN > 60
[2017-09-10 12:42] VITALS: BP 128/82; PULSE 63; RESP 17; TEMP 97.8
--- NOTE | 2017-09-10 15:31 | PN ---
DATE: 09/10/2017 PULMONARY PROGRESS NOTE REFERRING PHYSICIAN: Clint Mcduffie MD. SUBJECTIVE: The patient is ambulating. Just came back from the lady's room. Night was unremarkable. No headache. No rhinitis. No nausea. No vomiting, diarrhea, leg pain, leg swelling. OBJECTIVE: GENERAL: In no acute distress. VITAL SIGNS: Temperature is 98, heart rate is 63, respiratory rate is 20, blood pressure 128/82, pulse ox 95% on nasal cannula. HEENT: Moist mucous membrane. No ulcer or thrush noted. NECK: Supple. No JVD. LUNGS: Have a fair airflow with rhonchi. HEART: S1 and S2. ABDOMEN: Soft, nontender. No organomegaly. EXTREMITIES: No edema. NEUROLOGIC: Awake and alert. Follows simple command. MEDICATIONS: She is on albuterol/Atrovent nebulizer every 6 hours p.r.n., Brovana inhaled twice a day, Colace 100 mg twice a day, Protonix 40 mg daily, Pulmicort inhaled twice a day, Spiriva 1 capsule inhaled daily, Tylenol p.r.n., Ultram 50 mg every 6 hours p.r.n. LABORATORY DATA: Shows hemoglobin 9.2, hematocrit 28.3, WBC 3.6, platelet count is 98. Sodium 140, potassium 4.1, chloride 104, bicarbonate 25, BUN 15, creatinine 0.7, glucose 98, calcium 9.3, AST 17, ALT 33, alk phos is 53. Albumin is 3.8. Microbiology: Blood culture has been negative. Venous Doppler of lower extremity is negative for DVT. IMPRESSION AND PLAN: Chronic obstructive lung disease, severe anemia, thrombocytopenia, status post transfusion. Pulmonary point of view, she is doing okay. We will recommend stop smoking. PFT as outpatient. Outpatient Hematology followup. Thank you and we will follow with you. Solange Maurer MD
--- NOTE | 2017-09-10 18:16 | PN ---
DATE: 09/10/2017 This is [facility] visit on the telemetry floor. For Dr. Lopez. SUBJECTIVE: The patient is a 52-year-old female seen lying awake in bed with recently diagnosed abnormal flow cytometric analysis with differential of myelodysplastic syndrome versus acute myeloid leukemia due to significant number of blasts in her testing that was recently sent. With this, the patient has severe fatigue with significant anemic indices, where she was transfused on an emergency basis done with followup labs now being monitored. The patient also reported of leg discomfort to Dr. Maurer, for which a Doppler ultrasound was done which was negative, with the patient today reporting that her labs were not able to be drawn; however, after questioning the [facility] nurses, the labs were drawn and in fact, a specimen was sent for peripheral smear review by pathologist. The patient is now possibly having thought process changes, for which Dr. Lara is aware of and will be evaluating as indicated. At present, she is without complaint with recommended discharge to home after repeat labs were found to be significantly improved from her presenting hemoglobin of 7.3. The value on repeat today was 9.2. PHYSICAL EXAMINATION: VITAL SIGNS: Temperature 98.3, pulse 75, respirations 20, blood pressure 122/69, and pulse ox 95%. HEENT: Unremarkable. NECK: Supple. HEART: Regular rate. LUNGS: Clear. ABDOMEN: Soft. EXTREMITIES: No edema. SKIN: Warm and dry. NEUROLOGIC: Awake, alert and oriented x3. PSYCHIATRIC: There is possibly a personality disorder that may need to be addressed as the patient insists that the specimens were not acceptable and yet specimens were received and were obtained without consequence. LABORATORY DATA: The patient's labs were drawn this morning with repeat white blood cell count of 3.6, hemoglobin of 9.2, hematocrit of 28.3, platelet count of 98,000, still comprise of pancytopenic indices as the patient has recently diagnosed significant hematologic problem with the anemia, now corrected, so that she maybe safely discharged for outpatient followup. Her chem metabolic panel was completely within normal range including a total bilirubin of 1.3. The patient had blood cultures, which were negative from two days prior. A Doppler ultrasound was done after the patient reported significant leg pain to Dr. Maurer with Doppler ultrasound showing no evidence of DVT. ASSESSMENT: Symptomatic anemia with pancytopenia recently diagnosed with possible myelodysplastic syndrome versus acute myeloid leukemia with chronic obstructive pulmonary disease, questionable personality disorder with myalgias now significantly improved. She is also a smoker. PLAN: For this patient after conversation with Dr. Lopez is to discharge to home today as per Dr. Lara with bone marrow biopsy to be arranged for early this week with follow up in the office in 2 days time or earlier. This is a comprehensive medically necessary and appropriate visit carried out in excess of 30 minutes in [id number] time with the nurses involved in her care aware of the patient's report that labs had not been drawn with conversation held with Dr. Lara regarding her further plan with a peripheral smear to be done reviewed by pathologist which was obtained earlier today. Prognosis for the patient is guarded. Clint Mcduffie MD
--- NOTE | 2017-09-10 23:31 | HP ---
Codi Pope, 52-year-old female came in to the ER because of low platelets and severe anemia. HISTORY OF PRESENT ILLNESS: A 52-year-old female scheduled for blood transfusions by Dr. Lopez; however, flow cytometry shows significant blasts in the peripheral flow cytometry and the patient was called in to be admitted in the hospital for transfusion and possible bone marrow biopsy. She denied any fever. She does complain of low back pain. No other complaint. No nausea. No vomiting. She does have a history of asthma, but she seems stable. PAST MEDICAL HISTORY: As I mentioned, low back pain. She has had lung collapse probably due to asthma. She was treated with Dr. Bradford Powell. History also of tonsillectomy, adenoidectomy and she also had right breast lumpectomy. She also noted recently she was losing weight. REVIEW OF SYSTEMS: Back pain, weight loss. No appetite. Feeling fatigued, tired. Otherwise, negative. ALLERGIES: NO KNOWN ALLERGY. SOCIAL HISTORY: She quit smoking years ago. She does not drink. She does not have any substance abuse. FAMILY HISTORY: Positive for cancer. PHYSICAL EXAMINATION: VITAL SIGNS: Temperature 98.3, heart rate 81, blood pressure 126/66, respirations 20. HEAD AND NECK: Normal. No JVD. No thyromegaly. CHEST: Clear. Good air entry. CARDIAC: First sound and second sound normal. ABDOMEN: Soft, nontender. EXTREMITIES: No edema. NEUROLOGIC: Normal. LABORATORY STUDY: When she came in, white count is 5.3, hemoglobin 7.3, hematocrit 23.1 and platelets are 110. Her chemistry noted for sodium 139, potassium 3.9, chloride 104, bicarb 27, BUN 13, creatinine 0.7. Liver function test is normal. Bilirubin 1.7. Alk phos, troponin are negative. Also, the patient had PT, PTT; PT 12.9, INR 1.13, PTT 25. Urinalysis was negative. Blood gas shows pH 7.35, pO2 of 29, bicarb 29. IMPRESSION AND PLAN: This is a 52-year-old female, possible with severe anemia, symptomatic with low platelets and flow cytometry showing significant blasts, possibility of underlying myelodysplastic disease including acute leukemia or other bone marrow disorder has been raised. The patient was admitted for transfusions by Oncology, Dr. Lopez and we will follow up clinically. Continue current therapy for now. The patient was also for low back pain given Tramadol 1 every 6 hours p.r.n. and should follow up as outpatient. Continue current therapy for now. The patient's history and physical was seen and done on 09/09/2017. August Lara MD
--- NOTE | 2017-09-11 04:54 | DS ---
HISTORY OF PRESENT ILLNESS: A 52-year-old female came into the ER because of low platelets and hemoglobin of 7.2. Patient had a transfusion, seen by Dr. Lopez and Dr. Jaramillo, Hematology/Oncology team. Patient seemed stable. PHYSICAL EXAMINATION: VITAL SIGNS: On discharge, temperature 98.3, heart rate 75, blood pressure 122/69, respirations 20, saturating 98% on nasal cannula. Her hemoglobin went up from 7.3 to 9.2. CBC shows white count 3.6, hemoglobin 9.2, hematocrit 28.2, platelets 98. Chemistry noted for sodium 140, potassium 4.1, chloride 104, bicarb 25. Liver function test is normal. Albumin, globulin and albumin-globulin ratio is normal. DISCHARGE DIAGNOSES: 1. Symptomatic anemia. Etiology of this anemia is unclear. We will need bone marrow biopsy. 2. Thrombocytopenia. 3. Possible myelodysplastic syndrome or acute myeloid leukemia on peripheral smear, multiple bone marrow biopsy. 4. Low back pain. 5. Asthma. PLAN: Discharged home. Follow up in the office within 2 days. August Lara MD
== END 2017-09-10 14:55 | disposition home or self-care (01) | DRG 574 ==
LOC: ED 15:03 → ERH 15:24 → 2RSO 20:11
PROVIDERS: ADMIT Internal Medicine; ATTEND Internal Medicine
PROC: 30233N1 Transfusion of Nonautologous Red Blood Cells into Peripheral Vein, Percutaneous Approach (ICD-10-PCS; principal; 2017-09-08)
DX: D61.818 Other pancytopenia (principal); C92.00 Acute myeloblastic leukemia, not having achieved remission; J44.9 Chronic obstructive pulmonary disease, unspecified; F17.200 Nicotine dependence, unspecified, uncomplicated; Z90.11 Acquired absence of right breast and nipple; M54.5 Low back pain; D46.9 Myelodysplastic syndrome, unspecified

== ENCOUNTER 2018-06-12 07:42 | Outpatient (CLI) | payer MEDICAID | END 2018-06-12 07:43 | disposition home or self-care (01) | LOC: RAD 07:42 ==

== ENCOUNTER 2018-07-05 15:34 | Outpatient (CLI) | payer MEDICAID | END 2018-07-05 15:35 | disposition home or self-care (01) | LOC: OPLAB 15:34 | DX: D64.9 Anemia, unspecified (principal); E78.5 Hyperlipidemia, unspecified; E83.40 Disorders of magnesium metabolism, unspecified; M81.0 Age-related osteoporosis without current pathological fracture ==

== ENCOUNTER 2018-07-16 09:09 | Inpatient (IN) | payer MEDICAID ==
[2018-07-16 09:24] VITALS: BMI 17.2
[2018-07-16] MEDS ORDERED: Sodium Chloride 0.9% 1,000 ML IV STA (09:33)
[2018-07-16 09:56] LABS: VENOUS BLOOD GAS PO2 57 mm/Hg (30-55); VENOUS BLOOD PH 7.45 (7.32-7.43)
--- NOTE | 2018-07-16 10:10 | RAD ---
Date of service: 07/16/2018 HISTORY: chest pain COMPARISON: 06/12/2018 FINDINGS: LUNGS: No active pulmonary disease. PLEURA: No significant pleural effusion identified, no pneumothorax apparent. CARDIOVASCULAR: No aortic atherosclerotic calcification present. Normal cardiac size. No pulmonary vascular congestion. OSSEOUS STRUCTURES: No significant abnormalities. VISUALIZED UPPER ABDOMEN: Normal. OTHER FINDINGS: None. IMPRESSION: No active disease.
[2018-07-16 10:17] LABS: HEMOGLOBIN 9.4 g/dL (12.0-16.0); LYMPH % 52.3 % (22.0-35.0); MEAN CELL VOLUME 96.3 fl (80.0-105.0); MEAN CORPUSCULAR HEMOGLOBIN 31.9 pg (25.0-35.0); MEAN CORPUSCULAR HGB CONC 33.1 g/dl (31.0-37.0); MEAN PLATELET VOLUME 10.3 fl (7.0-11.0); MONO # 0.1 (0.1-0.6); RBC 2.95 10^6/uL (3.5-6.1); RED CELL DISTRIBUTION WIDTH 16.6 % (11.5-14.5)
[2018-07-16 10:41] LABS: ALB/GLOB RATIO 1.2 (1.1-1.8); ALBUMIN 3.8 g/dL (3.0-4.8); ALT/SGPT 92 U/L (7-56); AST/SGOT 87 U/L (14-36); BLOOD UREA NITROGEN 9 mg/dL (7-21); CALCIUM 9.4 mg/dL (8.4-10.5); GFR NON-AFRICAN AMERICAN > 60; LIPASE 28 U/L (23-300)
--- NOTE | 2018-07-16 10:56 | ED PDOC ---
Arrival/HPI - General Historian: Patient - History of Present Illness Narrative History of Present Illness (Text): 07/16/18 10:35 53yr old female with hx of leukemia on chemotherapy, asthma, sickle cell presents today with cough, chest pain, and shortness of breath worsening over the past 5 days. pt c/o generalized fatigue. no medications taken for pain at home. pt c/o nasal congestion. pt states cough is productive with white phelgm. pt denies abdominal pain. pt states she has been having some diarrhea which she relates to the chemo. pt states at home she takes percocet for the pain, but doesnt want to take any now since it makes her feel nauseous and dizzy. pt denies sick contacts at home. pt states she was due for chemotherapy today. <Payton Savage - Last Filed: 07/16/18 17:00> <Osman Mera - Last Filed: 07/16/18 17:24> - General Chief Complaint: Chest Pain Time Seen by Provider: 07/16/18 09:20 Past Medical History - Provider Review Nursing Documentation Reviewed: Yes - Travel History Have you recently traveled outside [place] w/in the past 3 mons?: No - Past History Past History: No Previous - Infectious Disease Hx of Infectious Diseases: None - Tetanus Immunization Tetanus Immunization: Unknown - Reproductive Menopause: Yes - Cardiac Hx Cardiac Disorders: No - Pulmonary Hx Chronic Obstructive Pulmonary Disease (COPD): Yes - Neurological Hx Neurological Disorder: No - HEENT Hx HEENT Disorder: No - Renal Other/Comment: "englarged kidney" - Endocrine/Metabolic Hx Endocrine Disorders: No - Hematological/Oncological Hx Blood Disorders: Yes Hx Cancer: Yes Hx Chemotherapy: Yes (last one was a week ago) Hx Leukemia: Yes Hx Sickle Cell Disease: Yes - Integumentary Hx Dermatological Disorder: No - Musculoskeletal/Rheumatological Hx Musculoskeletal Disorders: No - Gastrointestinal Hx Gastrointestinal Disorders: Yes (CONSTIPATION,WEIGHT LOSS 14 LBS .) - Genitourinary/Gynecological Hx Genitourinary Disorders: No - Psychiatric Hx Depression: Yes Hx Substance Use: No - Surgical History Other/Comment: Lung transplant. right breast surgery/ righjt breast mastecomy - Anesthesia Hx Anesthesia: Yes Hx Anesthesia Reactions: No Hx Malignant Hyperthermia: No <Payton Savage - Last Filed: 07/16/18 17:00> Family/Social History - Physician Review Nursing Documentation Reviewed: Yes Family/Social History: Unknown Family HX Smoking Status: Former Smoker Hx Alcohol Use: No Hx Substance Use: No Hx Substance Use Treatment: No <Payton Savage - Last Filed: 07/16/18 17:00> Allergies/Home Meds <Payton Savage - Last Filed: 07/16/18 17:00> <Osman Mera - Last Filed: 07/16/18 17:24> Allergies/Adverse Reactions: Allergies No Known Allergies Allergy (Verified 07/16/18 14:33) Home Medications: Home Meds Medication Instructions Recorded Confirmed Acyclovir [Zovirax] 1 cap PO DAILY 06/12/18 07/16/18 Prochlorperazine [Compazine] 1 cap PO Q6H 06/12/18 07/16/18 Vitamin B Complex [Super B-50 1 cap PO DAILY 06/12/18 07/16/18 Complex] oxyCODONE/Acetaminophen [Percocet 1 tab PO Q6H 06/12/18 07/16/18 5/325 mg Tab] traMADol [Ultram] 50 mg PO DAILY 06/12/18 07/16/18 Fluconazole [Diflucan] 100 tab PO DAILY 07/11/18 07/16/18 Review of Systems - Review of Systems Constitutional: Fatigue, Fevers ENT: Sinus Congestion. absent: Sore Throat Respiratory: SOB, Cough Cardiovascular: Chest Pain. absent: Palpitations Gastrointestinal: Diarrhea. absent: Abdominal Pain, Vomiting Musculoskeletal: absent: Back Pain Neurological: absent: Headache, Dizziness Psychiatric: absent: Anxiety, Depression <Payton Savage - Last Filed: 07/16/18 17:00> Physical Exam Vital Signs Reviewed: Yes Vital Signs Temp Pulse Resp BP Pulse Ox 07/16/18 09:20 99.5 F 124 H 18 104/51 L 97 Temperature: Afebrile Blood Pressure: Normal Pulse: Tachycardic Respiratory Rate: Normal Appearance: Positive for: Well-Appearing, Non-Toxic, Comfortable Pain Distress: None Mental Status: Positive for: Alert and Oriented X 3 - Systems Exam Head: Present: Atraumatic Mouth: Present: Moist Mucous Membranes Neck: Present: Normal Range of Motion Respiratory/Chest: Present: Clear to Auscultation, Good Air Exchange. No: Respiratory Distress, Accessory Muscle Use, Wheezes, Decreased Breath Sounds, Rhonchi Cardiovascular: Present: Regular Rate and Rhythm, Normal S1, S2. No: Murmurs Abdomen: No: Tenderness, Distention, Rebound, Guarding Upper Extremity: Present: Normal ROM Lower Extremity: Present: Normal ROM Neurological: Present: GCS=15, Speech Normal Skin: Present: Warm, Dry, Normal Color. No: Rashes Psychiatric: Present: Alert, Oriented x 3 <Payton Savage - Last Filed: 07/16/18 17:00> Vital Signs Temp Pulse Resp BP Pulse Ox 07/16/18 16:47 18 07/16/18 16:38 100.3 F H 07/16/18 15:38 102 F H 07/16/18 15:09 102 F H 07/16/18 14:50 118 H 20 131/72 99 07/16/18 14:08 102.9 F H 118 H 20 124/74 99 07/16/18 13:59 102.9 F H 122 H 18 123/71 95 07/16/18 12:48 112 H 18 131/73 100 07/16/18 11:11 107 H 18 154/64 H 97 07/16/18 09:20 99.5 F 124 H 18 104/51 L 97 <Osman Mera - Last Filed: 07/16/18 17:24> Medical Decision Making ED Course and Treatment: 07/16/18 10:57 53yr old female with chest pain, cough, shortness of breath, fatigue and tachycardia worsening over the past 5 days. cbc: wbc; 2.0 ANC; .81 cmp; wnl trop: 0.06 BNP; 680 ekg; sinus tachycardia at 124 bpm normal axis no ST elevations QTC 353 cxr; wnl ct angio: FINDINGS: PULMONARY ARTERIES: Unremarkable. No pulmonary embolism. AORTA: No acute findings. No thoracic aortic aneurysm. There is atherosclerotic calcification of the thoracic aortic arch. LUNGS: Centrilobular pulmonary emphysema. Numerous bilateral bullae predominantly in the upper lobes. Right apical opacity lateral to what may be a suture line. Question is raised as to whether the patient has undergone prior thoracic surgery. There deformity of the right 1st rib in conjunction with this suspected prior surgery. Nevertheless, this focal right apical opacity may represent a pneumonia. No pulmonary mass. PLEURAL SPACES: Unremarkable. No effusion or pneumothorax. HEART: Unremarkable. No cardiomegaly. No significant pericardial effusion. LYMPH NODES: No lymphadenopathy. BONES, CHEST WALL: Unremarkable. No fracture or destructive lesion OTHER FINDINGS: Two nonspecific low-attenuation lesions in the liver, lateral segment left lobe, 1.6 cm and medial segment left lobe, 9 mm. IMPRESSION: No evidence pulmonary embolism. Bullous emphysema. Postoperative changes in right lung apex with focal consolidation possibly representing a pneumonia. Two nonspecific low-attenuation lesions in the left lobe of the liver. blood cultures pending. pt started on rocephin and zithromax IV. case discussed with dr. Hart; neutropenic precautions; ID consult. He will remain on consult. case discussed with dr. barnes; accepts admission. wants dr. huff, dr. woodard, dr. lindsay and dr. hart on consult. case discussed with dr. Koch; will add Merrem 1g IV impression: Pneumonia, chest pain, tachycardia, neutropenia admit remote tele - Lab Interpretations Lab Results: pO2 57 mm/Hg (30-55) H 07/16/18 09:40 VBG pH 7.45 (7.32-7.43) H 07/16/18 09:40 VBG pCO2 39.0 (40-60) L 07/16/18 09:40 VBG HCO3 27.1 mmol/l (21-28) 07/16/18 09:40 VBG Total CO2 28.3 mmol.L (22-28) H 07/16/18 09:40 VBG O2 Sat (Calc) 98.9 % (40-65) H 07/16/18 09:40 VBG Base Excess 3.0 mmol/L (0.0-2.0) H 07/16/18 09:40 VBG Potassium 3.9 mmol/L (3.6-5.2) 07/16/18 09:40 Sodium 137.0 mmol/L (132-148) 07/16/18 09:40 Chloride 107.0 mmol/L (98-107) 07/16/18 09:40 Glucose 163 mg/dl (65-105) H 07/16/18 09:40 Lactate 1.5 mmol/L (0.7-2.1) 07/16/18 09:40 FiO2 21.0 % 07/16/18 09:40 - RAD Interpretation Radiology Orders: 07/16/18 09:32 CHEST PORTABLE [RAD] Stat 07/16/18 10:13 ANGIO CHEST PE PROTOCOL [CT] Stat - Medication Orders Current Medication Orders: Discontinued Medications Acetaminophen (Tylenol 325mg Tab) 650 mg PO STAT STA Stop: 07/16/18 09:41 Last Admin: 07/16/18 09:52 Dose: 650 mg MAR Pain/Vitals Document 07/16/18 09:52 AG (Rec: 07/16/18 09:52 AG [id number]) Pain Reassessment Is This A Pain ReAssessment? No Sleep Is patient sleeping during reassessment? No Presence of Pain Presence of Pain Yes Sodium Chloride (Sodium Chloride 0.9%) 1,000 mls @ 999 mls/hr IV .Q1H1M STA Stop: 07/16/18 10:33 Last Admin: 07/16/18 09:51 Dose: 999 mls/hr eMAR Start Stop Document 07/16/18 09:51 AG (Rec: 07/16/18 09:52 AG [id number]) Intravenous Solution Start Date 07/16/18 Start Time 09:52 End Date 07/16/18 End time 10:52 Total Infusion Time 60 <Payton Savage T - Last Filed: 07/16/18 17:00> - Lab Interpretations Lab Results: pO2 57 mm/Hg (30-55) H 07/16/18 09:40 VBG pH 7.45 (7.32-7.43) H 07/16/18 09:40 VBG pCO2 39.0 (40-60) L 07/16/18 09:40 VBG HCO3 27.1 mmol/l (21-28) 07/16/18 09:40 VBG Total CO2 28.3 mmol.L (22-28) H 07/16/18 09:40 VBG O2 Sat (Calc) 98.9 % (40-65) H 07/16/18 09:40 VBG Base Excess 3.0 mmol/L (0.0-2.0) H 07/16/18 09:40 VBG Potassium 3.9 mmol/L (3.6-5.2) 07/16/18 09:40 Sodium 137.0 mmol/L (132-148) 07/16/18 09:40 Chloride 107.0 mmol/L (98-107) 07/16/18 09:40 Glucose 163 mg/dl (65-105) H 07/16/18 09:40 Lactate 1.5 mmol/L (0.7-2.1) 07/16/18 09:40 FiO2 21.0 % 07/16/18 09:40 Troponin I 0.06 ng/mL D 07/16/18 10:10 NT-Pro-B Natriuret Pep 680 pg/mL (0-450) H 07/16/18 10:10 Total Bilirubin 0.7 mg/dL (0.2-1.3) 07/16/18 10:10 AST 87 U/L (14-36) H D 07/16/18 10:10 ALT 92 U/L (7-56) H 07/16/18 10:10 Alkaline Phosphatase 115 U/L (38-126) 07/16/18 10:10 Total Protein 6.9 g/dL (5.8-8.3) 07/16/18 10:10 Albumin 3.8 g/dL (3.0-4.8) 07/16/18 10:10 Globulin 3.1 gm/dL 07/16/18 10:10 Albumin/Globulin Ratio 1.2 (1.1-1.8) 07/16/18 10:10 Lipase 28 U/L (23-300) 07/16/18 10:10 Urine Color Yellow (YELLOW) 07/16/18 11:42 Urine Appearance Clear (CLEAR) 07/16/18 11:42 Urine pH 6.5 (4.7-8.0) 07/16/18 11:42 Ur Specific [place] <= 1.005 (1.005-1.035) 07/16/18 11:42 Urine Protein Negative mg/dL (<30 mg/dL) 07/16/18 11:42 Urine Glucose (UA) Negative mg/dL (NEGATIVE) 07/16/18 11:42 Urine Ketones Negative mg/dL (NEGATIVE) 07/16/18 11:42 Urine Blood Negative (NEGATIVE) 07/16/18 11:42 Urine Nitrate Negative (NEGATIVE) 07/16/18 11:42 Urine Bilirubin Negative (NEGATIVE) 07/16/18 11:42 Urine Urobilinogen 0.2 E.U./dL (<1 E.U./dL) 07/16/18 11:42 Ur Leukocyte Esterase Negative Liana/uL (NEGATIVE) 07/16/18 11:42 - RAD Interpretation Radiology Orders: 07/16/18 09:32 CHEST PORTABLE [RAD] Stat 07/16/18 10:13 ANGIO CHEST PE PROTOCOL [CT] Stat - Medication Orders Current Medication Orders: Acetaminophen (Tylenol 325mg Tab) 650 mg PO Q6H PRN PRN Reason: Fever >100.4 F Last Admin: 07/16/18 15:38 Dose: 650 mg MAR Pain/Vitals Document 07/16/18 15:38 VS (Rec: 07/16/18 15:39 VS [facility] [id number]) Pain Reassessment Is This A Pain ReAssessment? No Presence of Pain Presence of Pain No Vitals Temperature (97.6 F-99.6 F) 102 F Temperature Source Oral Re-Assess: MAR Pain/Vitals Document 07/16/18 16:38 VS (Rec: 07/16/18 16:56 VS [id number]) Vitals Temperature (97.6 F-99.6 F) 100.3 F Temperature Source Oral Atenolol (Tenormin) 25 mg PO BID KAYLEIGH Meropenem (Merrem Iv 1 Gm Premix) 1 gm in 50 mls @ 100 mls/hr IVPB STAT KAYLEIGH Last Admin: 07/16/18 15:37 Dose: 100 mls/hr eMAR Start Stop Document 07/16/18 15:37 VS (Rec: 07/16/18 15:37 VS [place] [facility] [id number]) Intravenous Solution Start Date 07/16/18 Start Time 15:37 End Date 07/16/18 End time 16:07 Total Infusion Time 30 Sodium Chloride (Sodium Chloride 0.9%) 1,000 mls @ 125 mls/hr IV .Q8H KAYLEIGH Last Admin: 07/16/18 15:36 Dose: 125 mls/hr eMAR Start Stop Document 07/16/18 15:36 VS (Rec: 07/16/18 15:37 VS [id number]) Intravenous Solution Start Date 07/16/18 Start Time 15:36 End Date 07/16/18 Ibuprofen (Motrin Tab) 400 mg PO Q6H KAYLEIGH Stop: 07/17/18 04:46 Discontinued Medications Acetaminophen (Tylenol 325mg Tab) 650 mg PO STAT STA Stop: 07/16/18 09:41 Last Admin: 07/16/18 09:52 Dose: 650 mg MAR Pain/Vitals Document 07/16/18 09:52 AG (Rec: 07/16/18 09:52 AG [id number]) Pain Reassessment Is This A Pain ReAssessment? No Sleep Is patient sleeping during reassessment? No Presence of Pain Presence of Pain Yes Sodium Chloride (Sodium Chloride 0.9%) 1,000 mls @ 999 mls/hr IV .Q1H1M STA Stop: 07/16/18 10:33 Last Admin: 07/16/18 09:51 Dose: 999 mls/hr eMAR Start Stop Document 07/16/18 09:51 AG (Rec: 07/16/18 09:52 AG [id number]) Intravenous Solution Start Date 07/16/18 Start Time 09:52 End Date 07/16/18 End time 10:52 Total Infusion Time 60 Ceftriaxone Sodium (Rocephin 1 Gram Ivpb) 1 gm in 100 mls @ 200 mls/hr IVPB STAT STA; Protocol Stop: 07/16/18 12:58 Last Admin: 07/16/18 12:42 Dose: 200 mls/hr eMAR Start Stop Document 07/16/18 12:42 AG (Rec: 07/16/18 12:42 AG [id number]) Intravenous Solution Start Date 07/16/18 Start Time 12:42 End Date 07/16/18 End time 13:18 Total Infusion Time 36 Azithromycin (Zithromax 500mg In Ns) 500 mg in 250 mls @ 167 mls/hr IVPB STAT STA; Protocol Stop: 07/16/18 13:58 Last Admin: 07/16/18 13:40 Dose: 167 mls/hr eMAR Start Stop Document 07/16/18 13:40 AG (Rec: 07/16/18 13:40 AG [id number]) Intravenous Solution Start Date 07/16/18 Start Time 13:40 End Date 07/16/18 End time 15:10 Total Infusion Time 90 Influenza Virus Vaccine (Flucelvax Quad 2687-1893 Syr) 60 mcg IM .ONCE ONE Stop: 07/16/18 17:14 Pneumococcal Polyvalent Vaccine (Pneumovax 23 Vaccine) 0.5 ml IM .ONCE ONE Stop: 07/16/18 17:14 Potassium Chloride (K-Dur 20 Meq Er Tab) 40 meq PO ONCE ONE Stop: 07/16/18 16:53 <Osman Mera - Last Filed: 07/16/18 17:24> - PA / FIELD AGENT / Resident Statement MD/DO has reviewed & agrees with the documentation as recorded. <Osman Mera - Last Filed: 07/16/18 17:24> Disposition/Present on Arrival - Present on Arrival Any Indicators Present on Arrival: No History of DVT/PE: No History of Uncontrolled Diabetes: No Urinary Catheter: No History of Decub. Ulcer: No History Surgical Site Infection Following: None - Disposition Have Diagnosis and Disposition been Completed?: Yes Disposition Time: 10:59 Patient Plan: Admission <Payton Savage - Last Filed: 07/16/18 17:00> <Osman Mera - Last Filed: 07/16/18 17:24> - Disposition Diagnosis: Pneumonia, Chest pain, Neutropenia Disposition: HOSPITALIZED Patient Problems: Current Active Problems Problem Status Onset Chest pain Acute Neutropenia Acute Pneumonia Acute Condition: FAIR
[2018-07-16] MEDS ORDERED: Iohexol 350 MG/100 ML VIAL ONE (10:57)
[2018-07-16 11:54] LABS: B-TYPE NATRIURETIC PEPTIDE 680 pg/mL (0-450); TROPONIN I 0.06 ng/mL
[2018-07-16 11:56] LABS: PH,URINE 6.5 (4.7-8.0); URINE APPEARANCE CLEAR (CLEAR); URINE BILIRUBIN NEGATIVE (NEGATIVE); URINE BLOOD NEGATIVE (NEGATIVE); URINE COLOR YELLOW (YELLOW); URINE GLUCOSE (UA) NEGATIVE (NEGATIVE); URINE LEUKOCYTE ESTERASE NEGATIVE Leu/uL (NEGATIVE); URINE PROTEIN NEGATIVE mg/dL (<30 mg/dL); URINE UROBILINOGEN 0.2 E.U./dL (<1 E.U./dL)
--- NOTE | 2018-07-16 12:20 | CT ---
Date of service: 07/16/2018 PROCEDURE: CT Chest with contrast (Pulmonary Angiogram) HISTORY: sob/tachy/ r/o pe COMPARISON: Not available TECHNIQUE: Axial computed tomography images were obtained of the chest in the pulmonary arterial phase of enhancement. Coronal and sagittal reformatted images were created and reviewed. Intravenous contrast dose: 100 mL Omnipaque 350 Radiation dose: Total exam DLP = 281.08 mGy-cm. This CT exam was performed using one or more of the following dose reduction techniques: Automated exposure control, adjustment of the mA and/or kV according to patient size, and/or use of iterative reconstruction technique. FINDINGS: PULMONARY ARTERIES: Unremarkable. No pulmonary embolism. AORTA: No acute findings. No thoracic aortic aneurysm. There is atherosclerotic calcification of the thoracic aortic arch. LUNGS: Centrilobular pulmonary emphysema. Numerous bilateral bullae predominantly in the upper lobes. Right apical opacity lateral to what may be a suture line. Question is raised as to whether the patient has undergone prior thoracic surgery. There deformity of the right 1st rib in conjunction with this suspected prior surgery. Nevertheless, this focal right apical opacity may represent a pneumonia. No pulmonary mass. PLEURAL SPACES: Unremarkable. No effusion or pneumothorax. HEART: Unremarkable. No cardiomegaly. No significant pericardial effusion. LYMPH NODES: No lymphadenopathy. BONES, CHEST WALL: Unremarkable. No fracture or destructive lesion OTHER FINDINGS: Two nonspecific low-attenuation lesions in the liver, lateral segment left lobe, 1.6 cm and medial segment left lobe, 9 mm. IMPRESSION: No evidence pulmonary embolism. Bullous emphysema. Postoperative changes in right lung apex with focal consolidation possibly representing a pneumonia. Two nonspecific low-attenuation lesions in the left lobe of the liver.
[2018-07-16] MEDS ORDERED: Azithromycin 500MG/NS 250ml 500 MG/250 ML BAG IVPB STA (12:29)
[2018-07-16] MEDS ORDERED: cefTRIAXone 1 gm 1 GM/100 ML BAG IVPB STA (12:29)
[2018-07-16] MEDS ORDERED: Meropenem IV 1 gm in NS 1 GM/50 ML BAG IVPB SCH (13:00)
[2018-07-16] MEDS: Sodium Chloride 0.9% 1,000 ML IV SCH (15:36)
--- NOTE | 2018-07-16 15:43 | CARD ---
APPROVED REPORT Date of service: 07/16/2018 EKG Measurement Heart [id number] <Conclusion> Sinus tachycardia Biatrial enlargement Nonspecific T wave abnormality Abnormal ECG
[2018-07-16] MEDS ORDERED: Potassium Chloride 20 mEq ER Tab PO ONE (16:52)
--- NOTE | 2018-07-16 17:10 | CP.PCM.CON ---
<Bobby Graham - Last Filed: 07/16/18 17:39> History of Present Illness - History of Present Illness History of Present Illness: ICU CONSULT NOTE FOR DR. WESLY Graham PGY1 53 y/o F with PMH of high grade myelodysplastic syndrome s/p chemotherapy 1 month prior, lung cancer s/p lobectomy, R breast mastectomy, COPD, endocarditis presented to ED with complaints of cough with productive clear phlegm, fevers and chills that's been ongoing for about 1 month. Pt arrived to ED today as she reported difficulty breathing at home. ICU consult p laced for tachycardia, neutropenia, and fevers. Upon interview, pt reports fevers, chills, cough with productive clear phlegm, nausea, vomiting, diarrhea yesterday, chest pain and shortness of breath. She denies recent sick contacts. She hasn't taken any medications at home for relief of her symptoms. PMH: high grade myelodysplastic syndrome s/p chemotherapy 1 month prior, lung cancer s/p lobectomy, R breast mastectomy, COPD, endocarditis All: Denies PSH: R mastectomy(2006), pneumothorax s/p R lobectomy (2006), tonsillectomy, adenoidectomy, SH: Former smoker: 1/2 pack/day x 30+ yrs, social ETOH user, denies illicit drug use FH: Mother: pancreatic/gastric cancer, Father: [place] Meds: Acyclovir, Fluconazole, Advair, Spiriva Review of Systems - Review of Systems Review of Systems: per HPI Past Patient History - Infectious Disease Hx of Infectious Diseases: None - Tetanus Immunizations Tetanus Immunization: Unknown - Past Social History Smoking Status: Former Smoker - CARDIAC Hx Cardiac Disorders: No - PULMONARY Hx Chronic Obstructive Pulmonary Disease (COPD): Yes - NEUROLOGICAL Hx Neurological Disorder: No - HEENT Hx HEENT Problems: No - RENAL Other/Comment: "englarged kidney" - ENDOCRINE/METABOLIC Hx Endocrine Disorders: No - HEMATOLOGICAL/ONCOLOGICAL Hx Blood Disorders: Yes Hx Cancer: Yes Hx Chemotherapy: Yes (last one was a week ago) Hx Leukemia: Yes Hx Sickle Cell Disease: Yes - INTEGUMENTARY Hx Dermatological Problems: No - MUSCULOSKELETAL/RHEUMATOLOGICAL Hx Musculoskeletal Disorders: No - GASTROINTESTINAL Hx Gastrointestinal Disorders: Yes (CONSTIPATION,WEIGHT LOSS 14 LBS .) - GENITOURINARY/GYNECOLOGICAL Hx Genitourinary Disorders: No - PSYCHIATRIC Hx Depression: Yes Hx Substance Use: No - SURGICAL HISTORY Other/Comment: Lung transplant. right breast surgery/ righjt breast mastecomy - ANESTHESIA Hx Anesthesia: Yes Hx Anesthesia Reactions: No Hx Malignant Hyperthermia: No Meds Allergies/Adverse Reactions: Allergies Allergy/AdvReac Type Severity Reaction Status Date / Time No Known Allergies Allergy Verified 07/16/18 14:33 - Medications Medications: Current Medications Acetaminophen (Tylenol 325mg Tab) 650 mg PO Q6H PRN PRN Reason: Fever >100.4 F Last Admin: 07/16/18 15:38 Dose: 650 mg Atenolol (Tenormin) 25 mg PO BID [facility] Meropenem (Merrem Iv 1 Gm Premix) 1 gm in 50 mls @ 100 mls/hr IVPB STAT [facility] Last Admin: 07/16/18 15:37 Dose: 100 mls/hr Sodium Chloride (Sodium Chloride 0.9%) 1,000 mls @ 125 mls/hr IV .Q8H [facility] Last Admin: 07/16/18 15:36 Dose: 125 mls/hr Ibuprofen (Motrin Tab) 400 mg PO Q6H [facility] Stop: 07/17/18 04:46 Physical Exam - Constitutional Appears: Non-toxic, No Acute Distress, Chronically Ill - Head Exam Head Exam: ATRAUMATIC, NORMOCEPHALIC - Eye Exam Eye Exam: EOMI, Normal appearance - ENT Exam ENT Exam: Mucous Membranes Dry - Neck Exam Neck exam: Positive for: Normal Inspection. Negative for: Meningismus - Respiratory Exam Respiratory Exam: Clear to Auscultation Bilateral, NORMAL BREATHING PATTERN. absent: Wheezes, Respiratory Distress - Cardiovascular Exam Cardiovascular Exam: Tachycardia, +S1, +S2 - GI/Abdominal Exam GI & Abdominal Exam: Soft. absent: Tenderness - Extremities Exam Extremities exam: Positive for: normal inspection. Negative for: calf t enderness Additional comments: warm to touch - Back Exam Back exam: NORMAL INSPECTION - Neurological Exam Neurological exam: Alert, Oriented x3 - Psychiatric Exam Psychiatric exam: Normal Affect, Normal Mood - Skin Skin Exam: Dry, Intact, Warm Results - Vital Signs Recent Vital Signs: Last Vital Signs Temp 100.3 F H 07/16/18 16:38 Pulse 118 H 07/16/18 14:50 Resp 20 07/16/18 14:50 BP 131/72 03/04/19 14:50 Pulse Ox 99 07/16/18 14:50 - Labs Result Diagrams: 07/16/18 09:30 07/16/18 10:10 Labs: Laboratory Results - last 24 hr 07/16/18 07/16/18 07/16/18 09:30 09:30 09:40 WBC 2.0 L RBC 2.95 L Hgb 9.4 L Hct 28.4 L MCV 96.3 MCH 31.9 MCHC 33.1 RDW 16.6 H Plt Count 82 L MPV 10.3 Neut % (Auto) 40.7 L Lymph % (Auto) 52.3 H [place] % (Auto) 7.0 H Eos % (Auto) 0.0 L Baso % (Auto) 0.0 Lymph # (Auto) 1.0 L [place] # (Auto) 0.1 Eos # (Auto) 0.0 Baso # (Auto) 0.00 Absolute Neuts (auto) 0.81 L Retic Count 1.14 pO2 57 H VBG pH 7.45 H VBG pCO2 39.0 L VBG HCO3 27.1 VBG Total CO2 28.3 H VBG O2 Sat (Calc) 98.9 H VBG Base Excess 3.0 H VBG Potassium 3.9 Sodium 137.0 Chloride 107.0 Glucose 163 H Lactate 1.5 FiO2 21.0 Potassium Carbon Dioxide Anion Gap BUN Creatinine Est GFR ( Amer) Est GFR (Non-Af Amer) Random Glucose Calcium Total Bilirubin AST ALT Alkaline Phosphatase Lactate Dehydrogenase Total Creatine Kinase Troponin I NT-Pro-B Natriuret Pep Total Protein Albumin Globulin Albumin/Globulin Ratio Lipase Venous Blood Potassium 3.9 Urine Color Urine Appearance Urine pH Ur Specific [place] Urine Protein Urine Glucose (UA) Urine Ketones Urine Blood Urine Nitrate Urine Bilirubin Urine Urobilinogen Ur Leukocyte Esterase Influenza Typ A,B (EIA) 07/16/18 07/16/18 07/16/18 09:50 10:10 11:42 WBC RBC Hgb Hct MCV MCH MCHC RDW Plt Count MPV Neut % (Auto) Lymph % (Auto) [place] % (Auto) Eos % (Auto) Baso % (Auto) Lymph # (Auto) [place] # (Auto) Eos # (Auto) Baso # (Auto) Absolute Neuts (auto) Retic Count pO2 VBG pH VBG pCO2 VBG HCO3 VBG Total CO2 VBG O2 Sat (Calc) VBG Base Excess VBG Potassium Sodium 138 Chloride 103 Glucose Lactate FiO2 Potassium 3.7 Carbon Dioxide 25 Anion Gap 14 BUN 9 Creatinine 0.5 L Est GFR ( Amer) > 60 Est GFR (Non-Af Amer) > 60 Random Glucose 147 H Calcium 9.4 Total Bilirubin 0.7 AST 87 H D ALT 92 H Alkaline Phosphatase 115 Lactate Dehydrogenase 523 Total Creatine Kinase 21 L Troponin I 0.06 D NT-Pro-B Natriuret Pep 680 H Total Protein 6.9 Albumin 3.8 Globulin 3.1 Albumin/Globulin Ratio 1.2 Lipase 28 Venous Blood Potassium Urine Color Yellow Urine Appearance Clear Urine pH 6.5 Ur Specific P[place]ree <= 1.005 Urine Protein Negative Urine Glucose (UA) Negative Urine Ketones Negative Urine Blood Negative Urine Nitrate Negative Urine Bilirubin Negative Urine Urobilinogen 0.2 Ur Leukocyte Esterase Negative Influenza Typ A,B (EIA) Negative for flu a/b Assessment & Plan - Assessment and Plan (Free Text) Assessment: 53 y/o F with PMH of high grade myelodysplastic syndrome s/p chemotherapy 1 month prior, lung cancer s/p lobectomy, R breast mastectomy, COPD, endocarditis presenting with 102 F fevers, chills, tachycardia and pancytopenia. ICU consulted for tachycardia, fever, and neutropenia Plan: Sinus Tachycardia Currently febrile, normotensive, saturating well on NC. CTA reveals no signs of PE Likely in the setting of underlying infectious process Continue IVF resuscitation, empiric antibiotics, including meropenem, azithromycin Would consider adding tamiflu and MRSA coverage f/u echo given hx of endocarditis. f/u cardio if TTE needed f/u with ID recs COPD Pt resting comfortably, speaking in full sentences, not in respiratory distress, protecting her airway CT chest revealing extensive signs of emphysema Continue with home nebulizers Supplement O2 prn Chest Pain No st/t wave changes on EKG. Initial troponin indeterminate continue to trend troponins f/u cardiology recs High grade myelodysplastic syndrome pt is pancytopenic f/u with heme-onc recs Case seen, examined and discussed with attending physician, Dr. Wesly Graham PGY1 <Freddy Mcpherson - Last Filed: 07/16/18 18:13> Meds - Medications Medications: Current Medications Acetaminophen (Tylenol 325mg Tab) 650 mg PO Q6H PRN PRN Reason: Fever >100.4 F Last Admin: 07/16/18 15:38 Dose: 650 mg Atenolol (Tenormin) 25 mg PO BID [facility] Meropenem (Merrem Iv 1 Gm Premix) 1 gm in 50 mls @ 100 mls/hr IVPB STAT [facility] Last Admin: 07/16/18 15:37 Dose: 100 mls/hr Sodium Chloride (Sodium Chloride 0.9%) 1,000 mls @ 125 mls/hr IV .Q8H [facility] Last Admin: 07/16/18 15:36 Dose: 125 mls/hr Ibuprofen (Motrin Tab) 400 mg PO Q6H [facility] Stop: 07/17/18 04:46 Results - Vital Signs Recent Vital Signs: Last Vital Signs Temp 100.3 F H 07/16/18 16:38 Pulse 122 H 07/16/18 16:47 Resp 18 07/16/18 16:47 BP 131/72 07/16/18 14:50 Pulse Ox 99 07/16/18 14:50 - Labs Result Diagrams: 07/16/18 09:30 07/16/18 10:10 Labs: Laboratory Results - last 24 hr 07/16/18 07/16/18 07/16/18 09:30 09:30 09:40 WBC 2.0 L RBC 2.95 L Hgb 9.4 L Hct 28.4 L MCV 96.3 MCH 31.9 MCHC 33.1 RDW 16.6 H Plt Count 82 L MPV 10.3 Neut % (Auto) 40.7 L Lymph % (Auto) 52.3 H [place] % (Auto) 7.0 H Eos % (Auto) 0.0 L Baso % (Auto) 0.0 Lymph # (Auto) 1.0 L [place] # (Auto) 0.1 Eos # (Auto) 0.0 Baso # (Auto) 0.00 Absolute Neuts (auto) 0.81 L Retic Count 1.14 pO2 57 H VBG pH 7.45 H VBG pCO2 39.0 L VBG HCO3 27.1 VBG Total CO2 28.3 H VBG O2 Sat (Calc) 98.9 H VBG Base Excess 3.0 H VBG Potassium 3.9 Sodium 137.0 Chloride 107.0 Glucose 163 H Lactate 1.5 FiO2 21.0 Potassium Carbon Dioxide Anion Gap BUN Creatinine Est GFR ( Amer) Est GFR (Non-Af Amer) Random Glucose Calcium Total Bilirubin AST ALT Alkaline Phosphatase Lactate Dehydrogenase Total Creatine Kinase Troponin I NT-Pro-B Natriuret Pep Total Protein Albumin Globulin Albumin/Globulin Ratio Lipase Venous Blood Potassium 3.9 Urine Color Urine Appearance Urine pH Ur Specific [place] Urine Protein Urine Glucose (UA) Urine Ketones Urine Blood Urine Nitrate Urine Bilirubin Urine Urobilinogen Ur Leukocyte Esterase Influenza Typ A,B (EIA) 07/16/18 07/16/18 07/16/18 09:50 10:10 11:42 WBC RBC Hgb Hct MCV MCH MCHC RDW Plt Count MPV Neut % (Auto) Lymph % (Auto) [place] % (Auto) Eos % (Auto) Baso % (Auto) Lymph # (Auto) [place] # (Auto) Eos # (Auto) Baso # (Auto) Absolute Neuts (auto) Retic Count pO2 VBG pH VBG pCO2 VBG HCO3 VBG Total CO2 VBG O2 Sat (Calc) VBG Base Excess VBG Potassium Sodium 138 Chloride 103 Glucose Lactate FiO2 Potassium 3.7 Carbon Dioxide 25 Anion Gap 14 BUN 9 Creatinine 0.5 L Est GFR ( Amer) > 60 Est GFR (Non-Af Amer) > 60 Random Glucose 147 H Calcium 9.4 Total Bilirubin 0.7 AST 87 H D ALT 92 H Alkaline Phosphatase 115 Lactate Dehydrogenase 523 Total Creatine Kinase 21 L Troponin I 0.06 D NT-Pro-B Natriuret Pep 680 H Total Protein 6.9 Albumin 3.8 Globulin 3.1 Albumin/Globulin Ratio 1.2 Lipase 28 Venous Blood Potassium Urine Color Yellow Urine Appearance Clear Urine pH 6.5 Ur Specific [place] <= 1.005 Urine Protein Negative Urine Glucose (UA) Negative Urine Ketones Negative Urine Blood Negative Urine Nitrate Negative Urine Bilirubin Negative Urine Urobilinogen 0.2 Ur Leukocyte Esterase Negative Influenza Typ A,B (EIA) Negative for flu a/b Assessment & Plan - Assessment and Plan (Free Text) Plan: Patient seen and examined with resident, agree with note with following additions/exceptions: Patient is 53yo female with PMHx high grade myelodysplastic syndrome s/p chemotherapy 1 month prior, lung cancer s/p lobectomy, R breast mastectomy, COPD, endocarditis presented to ED with cough, productive clear phlegm, fevers and chills x 1 month. Pt currently febrile, 100.3, BP stable, comfortable on room air. Labs, imaging, chart reviewed. Aggressive fever control IVF hydration Hold BP meds ID eval, would add Vanco, Tamiflu, cont with Merrem Clear liquid diet Zofran IV GI ppx DVT ppx Monitor on tele
[2018-07-16] MEDS ORDERED: Influenza Vaccine 60 mcg/0.5 mL SYR (4YR UP) IM ONE (17:13)
[2018-07-16] MEDS ORDERED: Pneumococcal 23-Valent Vaccine IM ONE (17:13)
[2018-07-16] MEDS: Vancomycin 1gm in NS 250ml 1 GM/250 ML BAG IVPB SCH (20:34)
[2018-07-16] MEDS ORDERED: oxyCODONE 10 mg Immediate Release Tab PO PRN (21:32)
[2018-07-16] MEDS: oxyCODONE 5 mg Immediate Release Tab PO PRN (21:53)
[2018-07-16] MEDS: Meropenem IV 1 gm in NS 1 GM/50 ML BAG IVPB SCH (21:54)
--- NOTE | 2018-07-17 00:46 | CP.PCM.PN ---
<Dave Chua - Last Filed: 07/17/18 00:44> Subjective - Date & Time of Evaluation Date of Evaluation: 07/17/18 Time of Evaluation: 00:44 - Subjective Subjective: PGY1 House Doctor: Patient's BP is 96/62; most recent prior BP was 105 systolic. Patient on IVF @ 125cc/hr. Continue IVF. Repeat BP, continue to monitor. Objective - Vital Signs/Intake and Output Vital Signs (last 24 hours): Temp Pulse Resp BP Pulse Ox 99.1 F 103 H 20 104/66 94 L 07/17/18 00:18 07/16/18 22:00 07/16/18 20:21 07/16/18 20:21 07/16/18 20:21 Intake and Output: 07/16/18 07/17/18 18:59 06:59 Intake Total 240 Output Total 200 Balance 40 - Medications Medications: Current Medications Acetaminophen (Tylenol 325mg Tab) 650 mg PO Q6H PRN PRN Reason: Fever >100.4 F Last Admin: 07/17/18 00:18 Dose: 650 mg Atenolol (Tenormin) 25 mg PO BID [facility] Last Admin: 07/16/18 19:00 Dose: 25 mg Sodium Chloride (Sodium Chloride 0.9%) 1,000 mls @ 125 mls/hr IV .Q8H [facility] Last Admin: 07/16/18 15:36 Dose: 125 mls/hr Meropenem (Merrem Iv 1 Gm Premix) 1 gm in 50 mls @ 100 mls/hr IVPB Q8 [facility]; Protocol Stop: 07/24/18 22:01 Last Admin: 07/16/18 21:54 Dose: 100 mls/hr Vancomycin HCl (Vancomycin 1gm) 1 gm in 250 mls @ 167 mls/hr IVPB Q12H [facility]; Protocol Stop: 07/25/18 18:31 Last Admin: 07/16/18 20:34 Dose: 167 mls/hr Ibuprofen (Motrin Tab) 400 mg PO Q6H [facility] Stop: 07/17/18 04:46 Last Admin: 07/16/18 22:31 Dose: 400 mg Levofloxacin/Dextrose (Levaquin 750mg) 750 mg IVPB DAILY [facility]; Protocol Stop: 07/23/18 10:01 Ondansetron HCl (Zofran Inj) 4 mg IVP Q6H PRN PRN Reason: Nausea/Vomiting Last Admin: 07/17/18 00:23 Dose: 4 mg Oxycodone HCl (Oxycodone Immediate Release Tab) 5 mg PO Q6H PRN PRN Reason: Pain, severe (8-10) Last Admin: 07/16/18 21:53 Dose: 5 mg Pantoprazole Sodium (Protonix Inj) 40 mg IVP DAILY [facility] Last Admin: 07/16/18 20:33 Dose: 40 mg - Labs Labs: 07/16/18 09:30 07/16/18 10:10 <Raghavendra Umaña - Last Filed: 07/17/18 06:32> Objective - Vital Signs/Intake and Output Vital Signs (last 24 hours): Temp Pulse Resp BP Pulse Ox 99.2 F 110 H 20 80/54 L 96 07/17/18 02:45 07/17/18 05:14 07/17/18 05:14 07/17/18 05:14 07/17/18 04:00 Intake and Output: 07/16/18 07/17/18 18:59 06:59 Intake Total 240 Output Total 200 Balance 40 - Medications Medications: Current Medications Acetaminophen (Tylenol 325mg Tab) 650 mg PO Q6H PRN PRN Reason: Fever >100.4 F Last Admin: 07/17/18 00:18 Dose: 650 mg Atenolol (Tenormin) 25 mg PO BID [facility] Last Admin: 07/16/18 19:00 Dose: 25 mg Sodium Chloride (Sodium Chloride 0.9%) 1,000 mls @ 125 mls/hr IV .Q8H [facility] Last Admin: 07/16/18 15:36 Dose: 125 mls/hr Meropenem (Merrem Iv 1 Gm Premix) 1 gm in 50 mls @ 100 mls/hr IVPB Q8 [facility]; Protocol Stop: 07/24/18 22:01 Last Admin: 07/16/18 21:54 Dose: 100 mls/hr Vancomycin HCl (Vancomycin 1gm) 1 gm in 250 mls @ 167 mls/hr IVPB Q12H [facility]; Protocol Stop: 07/25/18 18:31 Last Admin: 07/16/18 20:34 Dose: 167 mls/hr Levofloxacin/Dextrose (Levaquin 750mg) 750 mg IVPB DAILY [facility]; Protocol Stop: 07/23/18 10:01 Ondansetron HCl (Zofran Inj) 4 mg IVP Q6H PRN PRN Reason: Nausea/Vomiting Last Admin: 07/17/18 00:23 Dose: 4 mg Oxycodone HCl (Oxycodone Immediate Release Tab) 5 mg PO Q6H PRN PRN Reason: Pain, severe (8-10) Last Admin: 07/16/18 21:53 Dose: 5 mg Pantoprazole Sodium (Protonix Inj) 40 mg IVP DAILY [facility] Last Admin: 07/16/18 20:33 Dose: 40 mg - Labs Labs: 07/16/18 09:30 07/16/18 10:10 Attending/Attestation - Attestation I have personally seen and examined this patient.: Yes I have fully participated in the care of the patient.: Yes I have reviewed all pertinent clinical information, including history, physical exam and plan: Yes Notes (Text): 07/17/18 06:32 Failed fluid challenge. Stop Atenolol. start Midodrine 10 Q8 Stat. Transfer to ICU and will start levophed.
--- NOTE | 2018-07-17 00:50 | CON ---
DATE: 07/16/2018 CONSULTING SERVICE OF CARDIOLOGY REASON FOR CONSULTATION AND FOLLOWUP: Chest pain, coughing, fever, and tachycardia. BRIEF CLINICAL HISTORY: This is a 53-year-old female with past medical history of leukemia on chemotherapy, last chemo on , history of sickle-cell disease, history of asthma, history of previous multiple cancer including breast CA in 2004, history of lung CA in 2006, came in with cough and chest pain, lower right side of the chest, tenderness and painful. Now when coughing it hurts as well as tenderness on deep palpation. Denies any prior episodes of chest pain or dyspnea on exertion prior to this episode. Also keeps on complaining of cough. CAT scan is negative for pulmonary embolism but possibly right lower lobe pneumonia. PAST MEDICAL HISTORY: Significant for asthma, sickle-cell disease for many years, history of recently diagnosed leukemia on chemotherapy. History of breast CA in 2004 status post lumpectomy, history of lung CA in 2006 status post chemo. History of chronic COPD. Past history as above. SOCIAL HISTORY: Active tobacco abuse, used to smoke half a pack a day. Last was smoking on , after the chemo stopped it. No history of alcohol abuse. FAMILY HISTORY: No significant history of cardiopulmonary disease. CURRENT MEDICATIONS: The patient is taking at home; Compazine, Flonase, acyclovir, acetaminophen, Tramadol, atenolol, and baby aspirin. PREVIOUS CARDIAC WORKUP: As follows; the patient had an echocardiography on 09/15/2016, read by Dr. Brady. There is a normal LV function, normal valve motion, ATI's in normal size reported, no mitral valve regurgitation, no pulmonary hypertension, dated 09/15/2016. Calculated ejection fraction 58%. PHYSICAL EXAMINATION: VITAL SIGNS: Height of the patient is 5 feet 4 inches, weight of the patient 100 pounds, body mass index 17.2 kg/m2. Temperature 102, heart rate 120, blood pressure 131/72. HEENT: Eyes; PERRLA, extraocular muscles are intact. NECK: Supple. No carotid bruits or thyromegaly. CHEST: Clear to auscultation. HEART: S1, S2, regular. ABDOMEN: Soft. EXTREMITIES: Clubbing or cyanosis negative. LABORATORY DATA: Blood workup as follows; WBC 2.0, hemoglobin 9.4, hematocrit 28.4, platelet count 82. Chemistry shows; sodium 130, potassium 3.0, chloride 103, carbon is 25, anion gap of 14, BUN 9, creatinine 0.5. BNP 680. EKG shows sinus tachycardia. Chest x-ray reviewed; questionable right lower lobe pneumonia. CT chest; no evidence of PE but cannot rule out right lower lobe infiltrate. IMPRESSION: A 53-year-old female with a past medical history of recently diagnosed leukemia, active tobacco abuse, is recent chemo, admitted with neutropenic sepsis, pancytopenia, thrombocytopenia, and fever, probably neutropenic sepsis, right lower lobe pneumonia, this could be probably secondary to underlying sepsis and anemia. The chest pain is with reproducible tenderness secondary to cough. History of multiple cancer syndrome in the past. RECOMMENDATION: We will give ibuprofen for the chest pain. We will start beta kendra, 12.5 mg of atenolol b.i.d. and if the blood pressures tolerate it we will increase it to 25 mg p.o. b.i.d. We will get an echo to assess her LV function, lipid profile, TSH, hemoglobin A1c. We will follow the patient's ejection fraction as well because the patient had breast CA and is status post lumpectomy and chemo, history of lung CA in 2006, is status post chemo, and now patient has chemo and getting chemo. We will follow with you. Continue broad spectrum antibiotics. Continue thompson cultures. We will also supplement potassium. We will give 40 mg of K-Dur because of 3.[address] Lara for providing us the opportunity in taking care of the patient, Codi Pope. Solange Langley MD
[2018-07-17] MEDS ORDERED: Sodium Chloride 0.9% 500 ML IV STA ×3 (01:57→04:16)
[2018-07-17 05:29] LABS: PH,URINE 6.5 (4.7-8.0); URINE BILIRUBIN NEGATIVE (NEGATIVE); URINE BLOOD NEGATIVE (NEGATIVE); URINE GLUCOSE (UA) NEGATIVE (NEGATIVE); URINE LEUKOCYTE ESTERASE NEGATIVE Leu/uL (NEGATIVE); URINE PROTEIN 30 mg/dL (<30 mg/dL)
[2018-07-17 05:33] LABS: URINE COLOR YELLOW (YELLOW)
[2018-07-17 05:46] LABS: URINE APPEARANCE CLOUDY (CLEAR)
[2018-07-17 05:51] LABS: URINE AMORPHOUS SEDIMENT MANY /hpf; URINE EPITHELIAL CELLS 0 - 2 /hpf (0-5); URINE FINE GRANULAR CAST 0 - 2 /hpf; URINE RBC 0 - 2 /hpf (0-2); URINE WBC 0 - 2 /hpf (0-6)
[2018-07-17] MEDS: Meropenem IV 1 gm in NS 1 GM/50 ML BAG IVPB SCH ×3 (06:28→22:58)
[2018-07-17] MEDS: Vancomycin 1gm in NS 250ml 1 GM/250 ML BAG IVPB SCH (06:29)
[2018-07-17] MEDS ORDERED: Sodium Chloride 0.9% 1,000 ML IV STA (06:42)
--- NOTE | 2018-07-17 06:57 | CP.PCM.CON ---
Past Patient History - Infectious Disease Hx of Infectious Diseases: None - Tetanus Immunizations Tetanus Immunization: Unknown - Past Social History Smoking Status: Former Smoker - CARDIAC Hx Cardiac Disorders: No - PULMONARY Hx Chronic Obstructive Pulmonary Disease (COPD): Yes - NEUROLOGICAL Hx Neurological Disorder: No - HEENT Hx HEENT Problems: No - RENAL Other/Comment: "englarged kidney" - ENDOCRINE/METABOLIC Hx Endocrine Disorders: No - HEMATOLOGICAL/ONCOLOGICAL Hx Blood Disorders: Yes Hx Cancer: Yes Hx Chemotherapy: Yes (last one was a week ago) Hx Leukemia: Yes Hx Sickle Cell Disease: Yes - INTEGUMENTARY Hx Dermatological Problems: No - MUSCULOSKELETAL/RHEUMATOLOGICAL Hx Musculoskeletal Disorders: No - GASTROINTESTINAL Hx Gastrointestinal Disorders: Yes (CONSTIPATION,WEIGHT LOSS 14 LBS .) - GENITOURINARY/GYNECOLOGICAL Hx Genitourinary Disorders: No - PSYCHIATRIC Hx Depression: Yes Hx Substance Use: No - SURGICAL HISTORY Other/Comment: Lung transplant. right breast surgery/ righjt breast mastecomy - ANESTHESIA Hx Anesthesia: Yes Hx Anesthesia Reactions: No Hx Malignant Hyperthermia: No Meds Allergies/Adverse Reactions: Allergies Allergy/AdvReac Type Severity Reaction Status Date / Time No Known Allergies Allergy Verified 07/16/18 14:33 - Medications Medications: Current Medications Acetaminophen (Tylenol 325mg Tab) 650 mg PO Q6H PRN PRN Reason: Fever >100.4 F Last Admin: 07/17/18 00:18 Dose: 650 mg Atenolol (Tenormin) 25 mg PO BID [facility] Last Admin: 07/16/18 19:00 Dose: 25 mg Sodium Chloride (Sodium Chloride 0.9%) 1,000 mls @ 125 mls/hr IV .Q8H [facility] Last Admin: 07/16/18 15:36 Dose: 125 mls/hr Meropenem (Merrem Iv 1 Gm Premix) 1 gm in 50 mls @ 100 mls/hr IVPB Q8 [facility]; Protocol Stop: 07/24/18 22:01 Last Admin: 07/17/18 06:28 Dose: 100 mls/hr Vancomycin HCl (Vancomycin 1gm) 1 gm in 250 mls @ 167 mls/hr IVPB Q12H [facility]; Protocol Stop: 07/25/18 18:31 Last Admin: 07/17/18 06:29 Dose: 167 mls/hr Sodium Chloride (Sodium Chloride 0.9%) 1,000 mls @ 999 mls/hr IV .Q1H1M STA Stop: 07/17/18 07:42 Levofloxacin/Dextrose (Levaquin 750mg) 750 mg IVPB DAILY [facility]; Protocol Stop: 07/23/18 10:01 Lorazepam (Ativan) 2 mg IVP ONCE ONE; Protocol Stop: 07/17/18 05:43 Ondansetron HCl (Zofran Inj) 4 mg IVP Q6H PRN PRN Reason: Nausea/Vomiting Last Admin: 07/17/18 00:23 Dose: 4 mg Oxycodone HCl (Oxycodone Immediate Release Tab) 5 mg PO Q6H PRN PRN Reason: Pain, severe (8-10) Last Admin: 07/16/18 21:53 Dose: 5 mg Pantoprazole Sodium (Protonix Inj) 40 mg IVP DAILY [facility] Last Admin: 07/16/18 20:33 Dose: 40 mg Results - Vital Signs Recent Vital Signs: Last Vital Signs Temp 99.2 F 07/17/18 02:45 Pulse 110 H 07/17/18 05:14 Resp 20 07/17/18 05:14 BP 80/54 L 07/17/18 05:14 Pulse Ox 96 07/17/18 04:00 - Labs Result Diagrams: 07/16/18 09:30 07/16/18 10:10 Labs: Laboratory Results - last 24 hr 07/16/18 07/16/18 07/16/18 09:30 09:30 09:40 WBC 2.0 L RBC 2.95 L Hgb 9.4 L Hct 28.4 L MCV 96.3 MCH 31.9 MCHC 33.1 RDW 16.6 H Plt Count 82 L MPV 10.3 Neut % (Auto) 40.7 L Lymph % (Auto) 52.3 H [place] % (Auto) 7.0 H Eos % (Auto) 0.0 L Baso % (Auto) 0.0 Lymph # (Auto) 1.0 L [place] # (Auto) 0.1 Eos # (Auto) 0.0 Baso # (Auto) 0.00 Absolute Neuts (auto) 0.81 L Retic Count 1.14 pO2 57 H VBG pH 7.45 H VBG pCO2 39.0 L VBG HCO3 27.1 VBG Total CO2 28.3 H VBG O2 Sat (Calc) 98.9 H VBG Base Excess 3.0 H VBG Potassium 3.9 Sodium 137.0 Chloride 107.0 Glucose 163 H Lactate 1.5 FiO2 21.0 Potassium Carbon Dioxide Anion Gap BUN Creatinine Est GFR ( Amer) Est GFR (Non-Af Amer) Random Glucose Calcium Total Bilirubin AST ALT Alkaline Phosphatase Lactate Dehydrogenase Total Creatine Kinase Troponin I NT-Pro-B Natriuret Pep Total Protein Albumin Globulin Albumin/Globulin Ratio Lipase Venous Blood Potassium 3.9 Urine Color Urine Appearance Urine pH Ur Specific [place] Urine Protein Urine Glucose (UA) Urine Ketones Urine Blood Urine Nitrate Urine Bilirubin Urine Urobilinogen Ur Leukocyte Esterase Urine RBC Urine WBC Ur Epithelial Cells Amorphous Sediment Urine Bacteria Fine Granular Casts Influenza Typ A,B (EIA) 07/16/18 07/16/18 07/16/18 09:50 10:10 11:42 WBC RBC Hgb Hct MCV MCH MCHC RDW Plt Count MPV Neut % (Auto) Lymph % (Auto) [place] % (Auto) Eos % (Auto) Baso % (Auto) Lymph # (Auto) [place] # (Auto) Eos # (Auto) Baso # (Auto) Absolute Neuts (auto) Retic Count pO2 VBG pH VBG pCO2 VBG HCO3 VBG Total CO2 VBG O2 Sat (Calc) VBG Base Excess VBG Potassium Sodium 138 Chloride 103 Glucose Lactate FiO2 Potassium 3.7 Carbon Dioxide 25 Anion Gap 14 BUN 9 Creatinine 0.5 L Est GFR ( Amer) > 60 Est GFR (Non-Af Amer) > 60 Random Glucose 147 H Calcium 9.4 Total Bilirubin 0.7 AST 87 H D ALT 92 H Alkaline Phosphatase 115 Lactate Dehydrogenase 523 Total Creatine Kinase 21 L Troponin I 0.06 D NT-Pro-B Natriuret Pep 680 H Total Protein 6.9 Albumin 3.8 Globulin 3.1 Albumin/Globulin Ratio 1.2 Lipase 28 Venous Blood Potassium Urine Color Yellow Urine Appearance Clear Urine pH 6.5 Ur Specific [place] <= 1.005 Urine Protein Negative Urine Glucose (UA) Negative Urine Ketones Negative Urine Blood Negative Urine Nitrate Negative Urine Bilirubin Negative Urine Urobilinogen 0.2 Ur Leukocyte Esterase Negative Urine RBC Urine WBC Ur Epithelial Cells Amorphous Sediment Urine Bacteria Fine Granular Casts Influenza Typ A,B (EIA) Negative for flu a/b 07/16/18 07/17/18 21:10 03:15 WBC RBC Hgb Hct MCV MCH MCHC RDW Plt Count MPV Neut % (Auto) Lymph % (Auto) [place] % (Auto) Eos % (Auto) Baso % (Auto) Lymph # (Auto) [place] # (Auto) Eos # (Auto) Baso # (Auto) Absolute Neuts (auto) Retic Count pO2 VBG pH VBG pCO2 VBG HCO3 VBG Total CO2 VBG O2 Sat (Calc) VBG Base Excess VBG Potassium Sodium Chloride Glucose Lactate FiO2 Potassium Carbon Dioxide Anion Gap BUN Creatinine Est GFR ( Amer) Est GFR (Non-Af Amer) Random Glucose Calcium Total Bilirubin AST ALT Alkaline Phosphatase Lactate Dehydrogenase Total Creatine Kinase Troponin I 0.06 NT-Pro-B Natriuret Pep Total Protein Albumin Globulin Albumin/Globulin Ratio Lipase Venous Blood Potassium Urine Color Yellow Urine Appearance Cloudy Urine pH 6.5 Ur Specific [place] 1.025 Urine Protein 30 H Urine Glucose (UA) Negative Urine Ketones Trace H Urine Blood Negative Urine Nitrate Negative Urine Bilirubin Negative Urine Urobilinogen 1.0 H Ur Leukocyte Esterase Negative Urine RBC 0 - 2 Urine WBC 0 - 2 Ur Epithelial Cells 0 - 2 Amorphous Sediment Many Urine Bacteria None Fine Granular Casts 0 - 2 Influenza Typ A,B (EIA)
--- NOTE | 2018-07-17 07:01 | CP.PCM.PN ---
<Stewart Arrooy - Last Filed: 07/17/18 09:09> Subjective - Date & Time of Evaluation Date of Evaluation: 07/17/18 Time of Evaluation: 05:30 - Subjective Subjective: Stewart Arroyo PGY2 Overnight, the patient was noted to be hypotensive. Fluid challenge was given and the patient's BP failed to improve after 1.5L NS bolus. At this time, the decision was made to place a TLC for vasopressors. Consent was obtained, and patient understood and was agreeable. Patient was transferred to ICU and R IJ TLC was attempted 4 times but access could not be obtained. Signed out to morning ICU team. Objective - Vital Signs/Intake and Output Vital Signs (last 24 hours): Temp Pulse Resp BP Pulse Ox 99.2 F 108 H 20 80/54 L 96 07/17/18 02:45 07/17/18 06:00 07/17/18 05:14 07/17/18 05:14 07/17/18 04:00 Intake and Output: 07/17/18 07/17/18 06:59 18:59 Intake Total 240 Output Total 200 Balance 40 - Medications Medications: Current Medications Acetaminophen (Tylenol 325mg Tab) 650 mg PO Q6H PRN PRN Reason: Fever >100.4 F Last Admin: 07/17/18 00:18 Dose: 650 mg Atenolol (Tenormin) 25 mg PO BID [facility]LEIGH Last Admin: 07/16/18 19:00 Dose: 25 mg Sodium Chloride (Sodium Chloride 0.9%) 1,000 mls @ 125 mls/hr IV .Q8H [facility] Last Admin: 07/16/18 15:36 Dose: 125 mls/hr Meropenem (Merrem Iv 1 Gm Premix) 1 gm in 50 mls @ 100 mls/hr IVPB Q8 [facility]; Protocol Stop: 07/24/18 22:01 Last Admin: 07/17/18 06:28 Dose: 100 mls/hr Vancomycin HCl (Vancomycin 1gm) 1 gm in 250 mls @ 167 mls/hr IVPB Q12H [facility]; Protocol Stop: 07/25/18 18:31 Last Admin: 07/17/18 06:29 Dose: 167 mls/hr Sodium Chloride (Sodium Chloride 0.9%) 1,000 mls @ 999 mls/hr IV .Q1H1M STA Stop: 07/17/18 07:42 Levofloxacin/Dextrose (Levaquin 750mg) 750 mg IVPB DAILY [facility]; Protocol Stop: 07/23/18 10:01 Ondansetron HCl (Zofran Inj) 4 mg IVP Q6H PRN PRN Reason: Nausea/Vomiting Last Admin: 07/17/18 00:23 Dose: 4 mg Oxycodone HCl (Oxycodone Immediate Release Tab) 5 mg PO Q6H PRN PRN Reason: Pain, severe (8-10) Last Admin: 07/16/18 21:53 Dose: 5 mg Pantoprazole Sodium (Protonix Inj) 40 mg IVP DAILY [facility] Last Admin: 07/16/18 20:33 Dose: 40 mg - Labs Labs: 07/16/18 09:30 07/16/18 10:10 - Constitutional Appears: Well, Non-toxic, No Acute Distress - Head Exam Head Exam: ATRAUMATIC, NORMAL INSPECTION - Eye Exam Eye Exam: Normal appearance, PERRL - ENT Exam ENT Exam: Mucous Membranes Dry, Normal Exam - Neck Exam Neck Exam: Full ROM, Normal Inspection. absent: Tenderness - Respiratory Exam Respiratory Exam: Rhonchi (b/l diffuse), NORMAL BREATHING PATTERN. absent: Wheezes, Respiratory Distress - Cardiovascular Exam Cardiovascular Exam: RRR, +S1, +S2 - GI/Abdominal Exam GI & Abdominal Exam: Soft. absent: Distended, Tenderness - Extremities Exam Extremities Exam: Full ROM, Normal Inspection - Back Exam Back Exam: NORMAL INSPECTION. absent: tenderness - Neurological Exam Neurological Exam: Alert, Awake, Oriented x3 - Psychiatric Exam Psychiatric exam: Normal Affect, Normal Mood - Skin Skin Exam: Normal Color, Warm Assessment and Plan - Assessment and Plan (Free Text) Assessment: Patient noted to be in septic shock, having failed fluid resuscitation. Source of infection is likely right sided pneumonia. Patient on neutropenic precautions due to recent chemotherpy. TLC access could not be obtained. Endorsed to AM ICU team. <Raghavendra Umaña - Last Filed: 07/17/18 19:19> Objective - Vital Signs/Intake and Output Vital Signs (last 24 hours): Temp Pulse Resp BP Pulse Ox 98.7 F 118 H 48 H 119/52 L 96 07/17/18 16:00 07/17/18 17:45 07/17/18 17:16 07/17/18 17:16 07/17/18 17:16 Intake and Output: 07/17/18 07/18/18 18:59 06:59 Intake Total 900 Output Total 1 Balance 899 - Medications Medications: Current Medications Acetaminophen (Tylenol 325mg Tab) 650 mg PO Q6H PRN PRN Reason: Fever >100.4 F Last Admin: 07/17/18 11:32 Dose: 650 mg Acetylcysteine (Acetylcysteine 20%) 4 ml IH BIDRESP [facility]LEIGH Albumin Human (Albumin Human 25% (12.5 Gm/50 Ml)) 12.5 gm IV Q6H [facility] Stop: 07/18/18 12:00 Last Admin: 07/17/18 11:28 Dose: 12.5 gm Atenolol (Tenormin) 25 mg PO BID [facility]IGH Last Admin: 07/16/18 19:00 Dose: 25 mg Budesonide (Pulmicort Respules) 0.5 mg IH [id number] K[facility]LEIGH Meropenem (Merrem Iv 1 Gm Premix) 1 gm in 50 mls @ 100 mls/hr IVPB Q8 [facility]; Protocol Stop: 07/24/18 22:01 Last Admin: 07/17/18 14:13 Dose: 100 mls/hr NOREPINEPHRINE BIT/0.9 % NACL (Levophed 4 Mg/ 250 Ml Ns Premixed) 4 mg in 250 mls @ 15 mls/hr IV .[id number] PRN; Protocol PRN Reason: TITRATE PER MD ORDER Last Admin: 07/17/18 07:53 Dose: 4 mcg/min, 15 mls/hr Levalbuterol HCl (Xopenex) 0.63 mg IH TIDRESP K[facility]LEIGH Last Admin: 07/17/18 13:50 Dose: 0.63 mg Levofloxacin/Dextrose (Levaquin 750mg) 750 mg IVPB DAILY [facility]; Protocol Stop: 07/23/18 10:01 Last Admin: 07/17/18 11:34 Dose: 750 mg Methylprednisolone (Solu-Medrol) 40 mg IVP Q8 [facility]LEIGH Last Admin: 07/17/18 14:01 Dose: Not Given Nicotine (Nicoderm Cq) 1 patch TD DAILY [facility] Last Admin: 07/17/18 16:11 Dose: 1 patch Ondansetron HCl (Zofran Inj) 4 mg IVP Q6H PRN PRN Reason: Nausea/Vomiting Last Admin: 07/17/18 11:33 Dose: 4 mg Oxycodone HCl (Oxycodone Immediate Release Tab) 5 mg PO Q6H PRN PRN Reason: Pain, severe (8-10) Last Admin: 07/17/18 16:54 Dose: 5 mg Pantoprazole Sodium (Protonix Ec Tab) 40 mg PO ACB K[facility]LEIGH - Labs Labs: 07/17/18 07:50 07/17/18 07:50 PT 19.8 SECONDS (9.4-12.5) H 07/17/18 14:20 INR 1.78 07/17/18 14:20 APTT 27.6 Seconds (26.9-38.3) 07/17/18 14:20 Attending/Attestation - Attestation I have personally seen and examined this patient.: Yes I have fully participated in the care of the patient.: Yes I have reviewed all pertinent clinical information, including history, physical exam and plan: Yes Notes (Text): 07/17/18 19:19 see previous progress note
[2018-07-17] MEDS: Sodium Chloride 0.9% 1,000 ML IV SCH (07:34)
[2018-07-17] MEDS: NOREPINEPHRINE BIT/0.9 % NACL 4 MG/250 ML BAG IV PRN (07:53)
[2018-07-17] MEDS ORDERED: NOREPINEPHRINE BIT/0.9 % NACL 4 MG/250 ML BAG IV ONE (07:56)
[2018-07-17 08:54] LABS: LYMPH # 0.4 (1.2-3.4); LYMPH % 40.4 % (22.0-35.0); MEAN CELL VOLUME 98.2 fl (80.0-105.0); MEAN CORPUSCULAR HEMOGLOBIN 32.1 pg (25.0-35.0); MEAN CORPUSCULAR HGB CONC 32.7 g/dl (31.0-37.0); MEAN PLATELET VOLUME 8.7 fl (7.0-11.0); MONO # 0.2 (0.1-0.6); MONO % 22.3 % (1.0-6.0); RBC 2.18 10^6/uL (3.5-6.1); RED CELL DISTRIBUTION WIDTH 16.6 % (11.5-14.5)
[2018-07-17 09:01] LABS: WHITE BLOOD COUNT 0.9 10^3/uL (4.5-11.0)
[2018-07-17 09:02] LABS: PLATELET COUNT 48 10^3/uL (120.0-450.0)
[2018-07-17 09:08] LABS: ALB/GLOB RATIO 0.9 (1.1-1.8); ALBUMIN 2.6 g/dL (3.0-4.8); CALCIUM 7.9 mg/dL (8.4-10.5)
[2018-07-17] MEDS ORDERED: Potassium Chloride 40 mEq/30 ml LIQ UD PO ONE (09:18)
[2018-07-17] MEDS ORDERED: Albumin Human 25% (12.5 gm/50 ml) IV STA (09:36)
[2018-07-17] MEDS ORDERED: levoFLOXacin 750 mg in D5W 150 ML BAG IVPB SCH (10:00)
--- NOTE | 2018-07-17 10:42 | CARD ---
APPROVED REPORT Date of service: 07/16/2018 EKG Measurement Heart [id number] <Conclusion> Sinus tachycardia with occasional premature ventricular complexes Possible Left atrial enlargement Left ventricular hypertrophy Abnormal ECG
--- NOTE | 2018-07-17 11:06 | PCM.PROC ---
<Claus Yoon - Last Filed: 07/17/18 12:21> Procedures Attestation:: I certify that I have explained the specified Operation(s) or Procedure(s), risks, benefits and reasonable alternatives to the Patient and/or other person responsible. The opportunity was given to ask questions and all questions answered - Central Line Placement Right Femoral Triple Lumen Catheter Aseptic technique was employed throughout the procedure: Hand Hygiene done prior to procedure, Full sterile barriers (mask, hair cover, sterile gown, sterile gloves), Full body sterile drape, Chloraprep Antiseptic: 2 minute prep for Femoral CVP Time Out Performed: Yes Pt. Placed on Pulse Ox Monitor: Yes Central Line Prep: Chlorhexidine-Alcohol Combination Local Anesthesia Used: Lidocaine 1% Amount of Anesthesia Used (mls): 4 Ultrasound Used for Placement: Yes Central Line Lumen Inserted: triple Central Line Length: 20 cm (This procedure was supervised by Leonidas West, PGY-[address] Nelson Martinez [employer]) Post Procedure: Sutured in Place, Good Blood Return, All Ports Aspirated, Flushed, Capped, Sterile Dressing Applied Secured by: Suture Post procedure dressing: Gauze, Chlorhexidine disc (Biopatch) Patient Tolerated Procedure: Well Immediate Complications: None <Nelson Martinez - Last Filed: 07/19/18 17:28> Addendum Addendum: 07/19/18 17:28 agree with above i was present for the entire procedure Nelson Martinez MD MICU Attending
[2018-07-17] MEDS ORDERED: Potassium Chloride 20 mEq ER Tab PO ONE (11:12)
[2018-07-17] MEDS: Albumin Human 25% (12.5 gm/50 ml) IV SCH (11:28)
[2018-07-17 11:32] LABS: BASOPHIL 1 % (0.0-1.0); EOSINOPHIL 24 % (0.0-3.0); LYMPHOCYTE 49 % (22.0-35.0); MONOCYTE 17 % (1.0-6.0); NEUTROPHIL 9 % (50.0-70.0)
[2018-07-17 11:38] LABS: PLATELET ESTIMATE LOW (NORMAL); POLYCHROMASIA SLIGHT
[2018-07-17 11:39] LABS: ANISOCYTOSIS SLIGHT; HYPOCHROMIA 1+; MICROCYTOSIS SLIGHT; OVALOCYTES SLIGHT; POIKILOCYTOSIS SLIGHT; SCHISTOCYTES SLIGHT
--- NOTE | 2018-07-17 11:54 | CON ---
DATE: 07/17/2018 LOCATION: The patient seen in the ICU this morning in 129, bed 7. She is awake and alert. CHIEF COMPLAINT: Fever, weakness and chills for several days. HISTORY OF PRESENT ILLNESS: This is a 53-year-old female with myelodysplastic syndrome status post chemo 1 week ago, the patient with lung cancer, chronic obstructive lung disease, endocarditis and sickle cell was admitted after chemotherapy with fevers and chills. The patient is on the medical floor. The patient hypotensive and unable to manage the blood pressure with fluids alone, was transferred to the unit for pressors this morning. REVIEW OF SYSTEMS: A 12-point review of system is performed. PAST MEDICAL HISTORY: Significant for myelodysplastic syndrome, lung cancer, status post chemo last 1 week ago with chronic obstructive lung disease, endocarditis, sickle cell disease, kidney disease and asthma. PAST SURGICAL HISTORY: Significant for lobectomy, right mastectomy, tonsillectomy and adenoids. ALLERGIES: THE PATIENT HAS NO KNOWN ALLERGIES. MEDICATIONS: Recent chemotherapy, the patient was also on Diflucan, acyclovir and oxycodone. PHYSICAL EXAMINATION: GENERAL: She is awake. She is responsive. VITAL SIGNS: Temperature of 102.9, blood pressure is 80/40, respiratory rate of 20 and heart rate of 110. HEENT: Unremarkable. NECK: Supple. LUNGS: Decreased breath sounds. HEART: Normal S1 and S2. ABDOMEN: Soft and nontender. LABORATORY DATA: White count of 0.9 with hemoglobin of 7 and platelets of 48,000. The patient has absolute poly count of 350. Blood gases are reviewed. Chemistry reveals a creatinine of 1.3. The patient had a creatinine of 0.5 yesterday and LFTs are noted. Urinalysis is noted. Serology influenza is negative. Microbiology is pending. CAT scan of the chest is reviewed. Chest x-ray is noted, infiltrates. The patient is scheduled for an echo. ASSESSMENT AND PLAN: This is a 53-year-old female with septic shock with healthcare-associated pneumonia with neutropenic febrile patient on pressors now with acute kidney injury, creatinine has changed from 0.5 to 1.3. We will discontinue vancomycin. Treat the patient with meropenem and Levaquin. We will check her on the thompson cultures of blood, urine and sputum. We will check on the urine legionella antigen, we will check on a procalcitonin, thompson cultures and we will make further recommendations. We will follow closely with you. Terrance Juan MD
--- NOTE | 2018-07-17 12:35 | PN ---
DATE: 07/17/2018 REASON FOR CONSULTATION: Chest pain, cough, fever, tachycardia, hypotension, possibly neutropenic sepsis. SUBJECTIVE: The patient denies any chest pain, shortness of breath, any palpitation. The patient is moving to ICU 129, bed 7. PHYSICAL EXAMINATION: GENERAL: Awake and alert, appears very lethargic. VITAL SIGNS: Temperature 99.2 oral, heart rate 109, blood pressure 80/47. HEENT: PERRLA. Extraocular muscles intact. NECK: Supple. No carotid bruits or thyromegaly. CHEST: Clear to auscultation. HEART: S1 and S2, regular. ABDOMEN: Soft. EXTREMITIES: Clubbing and cyanosis negative. LABORATORY DATA: Blood workup as follows: WBC 0.9, hemoglobin 7, hematocrit 21.4, platelet count 48. Chemistry shows sodium 145, potassium 3.5, chloride 115, carbon dioxide 22, anion gap of 8, BUN 17, creatinine 1.3. Total protein 5.6, albumin 2.6, albumin-globulin ratio 0.9. Troponin is 0.06. IMPRESSION: A 53-year-old female with past medical history significant for breast carcinoma in 2004, history of lung carcinoma in 2006, recently found myelodysplastic syndrome and now the patient has leukemia status post chemo. Admitted to the floor, found to be feverish and now is hypotensive, possibly neutropenic sepsis. Today, WBC count is 0.9 and pancytopenic. Hemoglobin is low as well as platelet count is low and hypotensive, is being moved to a unit. PLAN: We will continue thompson cultures. Start broad-spectrum antibiotic. We will get echo to assess LV function and start norepinephrine. Since the patient is hypotensive and hypovolemic, we will give two doses of IV albumin to increase and blood pressure. The patient may show some signs of positive troponin borderline because of the underlying , doubt it is a primary cardiac event, most likely the neutropenic sepsis. Possibly, the patient needs blood and blood product. We will leave this portion for Hem-Onc to evaluate and give the blood and blood product. We will discuss with ICU team nurse. Solange Langley MD [facility] # [id number]
--- NOTE | 2018-07-17 13:09 | CP.CCUPN ---
<Claus Yoon - Last Filed: 07/18/18 06:41> CCU Subjective - Physician Review Subjective (Free Text): 07/17/18 12:59 Claus Yoon, PGY1 ICU Progress Note: Pt was seen and examined this AM at bedside. Pt overnight developed hypotension which prompted her move into the unit, which was then improved with pressors support. At this time pt reports feeling SOB, but states that it is improving and also admits to nausea. She also complaints of cough which she states has stayed the same since admission. She otherwise denies any fevers, chills, palpitations, headache, abd pain, c/d or dysuria. CCU Objective - Vital Signs / Intake & Output Intake and Output (Last 8hrs): Intake & Output 07/16/18 07/17/18 07/17/18 22:59 06:59 14:59 Intake Total 240 Output Total 200 Balance 40 Weight 100 lb Intake: Oral 240 Output: Urine 200 Urine, Voided 200 Other: Voiding Method Toilet # Bowel Movements 0 - Physical Exam Head: Positive for: Atraumatic, Normocephalic Pupils: Positive for: PERRL Extroacular Muscles: Positive for: EOMI Conjunctiva: Positive for: Normal Neck: Positive for: Normal Range of Motion Respiratory/Chest: Positive for: Wheezes (end expiratory ). Negative for: Respiratory Distress, Accessory Muscle Use, Decreased Breath Sounds, Rhonchi, Tachypneic Cardiovascular: Positive for: Regular Rate and Rhythm, Normal S1, S2. Negative for: Murmurs Abdomen: Positive for: Normal Bowel Sounds. Negative for: Tenderness, Distention, Rebound, Guarding Upper Extremity: Positive for: Normal ROM Lower Extremity: Positive for: Normal ROM Neurological: Positive for: GCS=15, Speech Normal, Motor Func Grossly Intact Skin: Positive for: Warm, Dry, Normal Color. Negative for: Rashes Psychiatric: Positive for: Alert, Oriented x 3, Normal Insight, Normal Concentration - Medications Active Medications: Active Medications Generic Name Dose Route Start Last Admin Trade Name Freq PRN Reason Stop Dose Admin Acetaminophen 650 mg 07/16/18 15:30 07/17/18 11:32 Tylenol 325mg Tab PO 650 mg Q6H PRN Administration Fever >100.4 F Acetylcysteine 4 ml 07/17/18 20:00 Acetylcysteine 20% IH BIDRESP KAYLEIGH Albumin Human 12.5 gm 07/17/18 11:00 07/17/18 11:28 Albumin Human 25% (12.5 Gm/50 Ml) IV 07/18/18 12:00 12.5 gm Q6H KAYLEIGH Administration Atenolol 25 mg 07/16/18 18:00 07/16/18 19:00 Tenormin PO 25 mg BID KAYLEIGH Administration Budesonide 0.5 mg 07/17/18 20:00 Pulmicort Respules IH [id number] KAYLEIGH Sodium Chloride 1,000 mls @ 125 mls/hr 07/16/18 15:30 07/17/18 07:34 Sodium Chloride 0.9% IV 125 mls/hr .Q8H KAYLEIGH Administration Meropenem 1 gm in 50 mls @ 100 mls/hr 07/16/18 22:00 07/17/18 06:28 Merrem Iv 1 Gm Premix IVPB 07/24/18 22:01 100 mls/hr Q8 KAYLEIGH Administration Protocol NOREPINEPHRINE BIT/0.9 % NACL 4 mg in 250 mls @ 15 mls/hr 07/17/18 07:50 07/17/18 07:53 Levophed 4 Mg/ 250 Ml Ns Premixed IV 4 mcg/min .[id number] PRN 15 mls/hr TITRATE PER MD ORDER Administration Protocol 4 MCG/MIN Levalbuterol HCl 0.63 mg 07/17/18 14:00 Xopenex IH TIDRESP KAYLEIGH Levofloxacin/Dextrose 750 mg 07/17/18 10:00 07/17/18 11:34 Levaquin 750mg IVPB 07/23/18 10:01 750 mg DAILY KAYLEIGH Administration Protocol Methylprednisolone 40 mg 07/17/18 14:00 Solu-Medrol IVP Q8 [facility] Ondansetron HCl 4 mg 07/16/18 18:19 07/17/18 11:33 Zofran Inj IVP 4 mg Q6H PRN Administration Nausea/Vomiting Oxycodone HCl 5 mg 07/16/18 21:38 07/16/18 21:53 Oxycodone Immediate Release Tab PO 5 mg Q6H PRN Administration Pain, severe (8-10) Pantoprazole Sodium 40 mg 07/16/18 18:30 07/17/18 11:38 Protonix Inj IVP 40 mg DAILY KAYLEIGH Administration - Patient Studies Lab Studies: Microbiology Studies 07/16/18 10:10 Blood Culture - Preliminary Blood NO GROWTH AFTER 24 HOURS 07/16/18 09:30 Blood Culture - Preliminary Blood NO GROWTH AFTER 24 HOURS Lab Studies 07/17/18 07/17/18 07/17/18 Range/Units 11:50 09:16 08:00 WBC (4.5-11.0) 10^3/uL RBC (3.5-6.1) 10^6/uL Hgb (12.0-16.0) g/dL Hct (36.0-48.0) % MCV (80.0-105.0) fl MCH (25.0-35.0) pg MCHC (31.0-37.0) g/dl RDW (11.5-14.5) % Plt Count (120.0-450.0) 10^3/uL Manual Plt Count 50 L (120-450) K/mm3 MPV (7.0-11.0) fl Neut % (Auto) (50.0-68.0) % Lymph % (Auto) (22.0-35.0) % Pershing % (Auto) (1.0-6.0) % Eos % (Auto) (1.5-5.0) % Baso % (Auto) (0.0-3.0) % Lymph # (Auto) (1.2-3.4) Pershing # (Auto) (0.1-0.6) Eos # (Auto) (0.0-0.7) Baso # (Auto) (0.0-2.0) K/mm3 Absolute Neuts (auto) (1.4-6.5) Neutrophils % (Manual) (50.0-70.0) % Lymphocytes % (Manual) (22.0-35.0) % Monocytes % (Manual) (1.0-6.0) % Eosinophils % (Manual) (0.0-3.0) % Basophils % (Manual) (0.0-1.0) % Platelet Evaluation (NORMAL) Polychromasia Hypochromasia Poikilocytosis (manual Anisocytosis (manual) Microcytosis (manual) Ovalocytes Schistocytes Sodium (132-148) mmol/L Potassium (3.6-5.0) mmol/L Chloride (98-107) mmol/L Carbon Dioxide (21-33) mmol/L Anion Gap (10-20) BUN (7-21) mg/dL Creatinine (0.7-1.2) mg/dl Est GFR ( Amer) Est GFR (Non-Af Amer) Random Glucose (70-110) mg/dL Hemoglobin A1c 6.3 (4.2-6.5) % Calcium (8.4-10.5) mg/dL Phosphorus (2.5-4.5) mg/dL Magnesium (1.7-2.2) mg/dL Total Bilirubin (0.2-1.3) mg/dL AST (14-36) U/L ALT (7-56) U/L Alkaline Phosphatase (38-126) U/L Troponin I ng/mL Total Protein (5.8-8.3) g/dL Albumin (3.0-4.8) g/dL Globulin gm/dL Albumin/Globulin Ratio (1.1-1.8) Triglycerides (35-160) mg/dL Cholesterol (130-200) mg/dL LDL Cholesterol Direct (0-129) mg/dL HDL Cholesterol (29-60) mg/dL Procalcitonin (0.19-0.49) NG/ML TSH 3rd Generation (0.46-4.68) mIU/mL Urine Color (YELLOW) Urine Appearance (CLEAR) Urine pH (4.7-8.0) Ur Specific [place] (1.005-1.035) Urine Protein (<30 mg/dL) mg/dL Urine Glucose (UA) (NEGATIVE) mg/dL Urine Ketones (NEGATIVE) mg/dL Urine Blood (NEGATIVE) Urine Nitrate (NEGATIVE) Urine Bilirubin (NEGATIVE) Urine Urobilinogen (<1 E.U./dL) E.U./dL Ur Leukocyte Esterase (NEGATIVE) Liana/uL Urine RBC (0-2) /hpf Urine WBC (0-6) /hpf Ur Epithelial Cells (0-5) /hpf Amorphous Sediment (NONE) /hpf Urine Bacteria (NONE) /hpf Fine Granular Casts (NONE) /hpf Ur L.pneumophila Ag (NEGATIVE) Blood Type B POSITIVE Antibody Screen Negative Crossmatch See Detail BBK History Checked Patient has bt 07/17/18 07/17/18 07/17/18 Range/Units 07:50 07:50 07:50 WBC 0.9 L* D (4.5-11.0) 10^3/uL RBC 2.18 L (3.5-6.1) 10^6/uL Hgb 7.0 L D (12.0-16.0) g/dL Hct 21.4 L (36.0-48.0) % MCV 98.2 (80.0-105.0) fl MCH 32.1 (25.0-35.0) pg MCHC 32.7 (31.0-37.0) g/dl RDW 16.6 H (11.5-14.5) % Plt Count 48 L* (120.0-450.0) 10^3/uL Manual Plt Count (120-450) K/mm3 MPV 8.7 (7.0-11.0) fl Neut % (Auto) 37.3 L (50.0-68.0) % Lymph % (Auto) 40.4 H (22.0-35.0) % Pershing % (Auto) 22.3 H (1.0-6.0) % Eos % (Auto) 0.0 L (1.5-5.0) % Baso % (Auto) 0.0 (0.0-3.0) % Lymph # (Auto) 0.4 L (1.2-3.4) Pershing # (Auto) 0.2 (0.1-0.6) Eos # (Auto) 0.0 (0.0-0.7) Baso # (Auto) 0.00 (0.0-2.0) K/mm3 Absolute Neuts (auto) 0.35 L (1.4-6.5) Neutrophils % (Manual) 9 L (50.0-70.0) % Lymphocytes % (Manual) 49 H (22.0-35.0) % Monocytes % (Manual) 17 H (1.0-6.0) % Eosinophils % (Manual) 24 H (0.0-3.0) % Basophils % (Manual) 1 (0.0-1.0) % Platelet Evaluation Low (NORMAL) Polychromasia Slight Hypochromasia 1+ Poikilocytosis (manual Slight Anisocytosis (manual) Slight Microcytosis (manual) Slight Ovalocytes Slight Schistocytes Slight Sodium 141 (132-148) mmol/L Potassium 3.5 L (3.6-5.0) mmol/L Chloride 115 H (98-107) mmol/L Carbon Dioxide 22 (21-33) mmol/L Anion Gap 8 L (10-20) BUN 17 (7-21) mg/dL Creatinine 1.3 H (0.7-1.2) mg/dl Est GFR ( Amer) 52 Est GFR (Non-Af Amer) 43 Random Glucose 93 (70-110) mg/dL Hemoglobin A1c (4.2-6.5) % Calcium 7.9 L (8.4-10.5) mg/dL Phosphorus 3.7 (2.5-4.5) mg/dL Magnesium 1.8 (1.7-2.2) mg/dL Total Bilirubin 0.9 (0.2-1.3) mg/dL AST 30 (14-36) U/L ALT 47 (7-56) U/L Alkaline Phosphatase 82 (38-126) U/L Troponin I ng/mL Total Protein 5.6 L (5.8-8.3) g/dL Albumin 2.6 L (3.0-4.8) g/dL Globulin 2.9 gm/dL Albumin/Globulin Ratio 0.9 L (1.1-1.8) Triglycerides 92 (35-160) mg/dL Cholesterol 101 L (130-200) mg/dL LDL Cholesterol Direct 34 (0-129) mg/dL HDL Cholesterol 29 (29-60) mg/dL Procalcitonin (0.19-0.49) NG/ML TSH 3rd Generation 0.64 (0.46-4.68) mIU/mL Urine Color (YELLOW) Urine Appearance (CLEAR) Urine pH (4.7-8.0) Ur Specific [place] (1.005-1.035) Urine Protein (<30 mg/dL) mg/dL Urine Glucose (UA) (NEGATIVE) mg/dL Urine Ketones (NEGATIVE) mg/dL Urine Blood (NEGATIVE) Urine Nitrate (NEGATIVE) Urine Bilirubin (NEGATIVE) Urine Urobilinogen (<1 E.U./dL) E.U./dL Ur Leukocyte Esterase (NEGATIVE) Liana/uL Urine RBC (0-2) /hpf Urine WBC (0-6) /hpf Ur Epithelial Cells (0-5) /hpf Amorphous Sediment (NONE) /hpf Urine Bacteria (NONE) /hpf Fine Granular Casts (NONE) /hpf Ur L.pneumophila Ag (NEGATIVE) Blood Type Antibody Screen Crossmatch BBK History Checked 07/17/18 07/17/18 07/16/18 Range/Units 03:15 03:15 21:10 WBC (4.5-11.0) 10^3/uL RBC (3.5-6.1) 10^6/uL Hgb (12.0-16.0) g/dL Hct (36.0-48.0) % MCV (80.0-105.0) fl MCH (25.0-35.0) pg MCHC (31.0-37.0) g/dl RDW (11.5-14.5) % Plt Count (120.0-450.0) 10^3/uL Manual Plt Count (120-450) K/mm3 MPV (7.0-11.0) fl Neut % (Auto) (50.0-68.0) % Lymph % (Auto) (22.0-35.0) % Pershing % (Auto) (1.0-6.0) % Eos % (Auto) (1.5-5.0) % Baso % (Auto) (0.0-3.0) % Lymph # (Auto) (1.2-3.4) Pershing # (Auto) (0.1-0.6) Eos # (Auto) (0.0-0.7) Baso # (Auto) (0.0-2.0) K/mm3 Absolute Neuts (auto) (1.4-6.5) Neutrophils % (Manual) (50.0-70.0) % Lymphocytes % (Manual) (22.0-35.0) % Monocytes % (Manual) (1.0-6.0) % Eosinophils % (Manual) (0.0-3.0) % Basophils % (Manual) (0.0-1.0) % Platelet Evaluation (NORMAL) Polychromasia Hypochromasia Poikilocytosis (manual Anisocytosis (manual) Microcytosis (manual) Ovalocytes Schistocytes Sodium (132-148) mmol/L Potassium (3.6-5.0) mmol/L Chloride (98-107) mmol/L Carbon Dioxide (21-33) mmol/L Anion Gap (10-20) BUN (7-21) mg/dL Creatinine (0.7-1.2) mg/dl Est GFR ( Amer) Est GFR (Non-Af Amer) Random Glucose (70-110) mg/dL Hemoglobin A1c (4.2-6.5) % Calcium (8.4-10.5) mg/dL Phosphorus (2.5-4.5) mg/dL Magnesium (1.7-2.2) mg/dL Total Bilirubin (0.2-1.3) mg/dL AST (14-36) U/L ALT (7-56) U/L Alkaline Phosphatase (38-126) U/L Troponin I 0.06 ng/mL Total Protein (5.8-8.3) g/dL Albumin (3.0-4.8) g/dL Globulin gm/dL Albumin/Globulin Ratio (1.1-1.8) Triglycerides (35-160) mg/dL Cholesterol (130-200) mg/dL LDL Cholesterol Direct (0-129) mg/dL HDL Cholesterol (29-60) mg/dL Procalcitonin (0.19-0.49) NG/ML TSH 3rd Generation (0.46-4.68) mIU/mL Urine Color Yellow (YELLOW) Urine Appearance Cloudy (CLEAR) Urine pH 6.5 (4.7-8.0) Ur Specific [place] 1.025 (1.005-1.035) Urine Protein 30 H (<30 mg/dL) mg/dL Urine Glucose (UA) Negative (NEGATIVE) mg/dL Urine Ketones Trace H (NEGATIVE) mg/dL Urine Blood Negative (NEGATIVE) Urine Nitrate Negative (NEGATIVE) Urine Bilirubin Negative (NEGATIVE) Urine Urobilinogen 1.0 H (<1 E.U./dL) E.U./dL Ur Leukocyte Esterase Negative (NEGATIVE) Liana/uL Urine RBC 0 - 2 (0-2) /hpf Urine WBC 0 - 2 (0-6) /hpf Ur Epithelial Cells 0 - 2 (0-5) /hpf Amorphous Sediment Many (NONE) /hpf Urine Bacteria None (NONE) /hpf Fine Granular Casts 0 - 2 (NONE) /hpf Ur L.pneumophila Ag Negative (NEGATIVE) Blood Type Antibody Screen Crossmatch BBK History Checked 07/16/18 Range/Units 19:00 WBC (4.5-11.0) 10^3/uL RBC (3.5-6.1) 10^6/uL Hgb (12.0-16.0) g/dL Hct (36.0-48.0) % MCV (80.0-105.0) fl MCH (25.0-35.0) pg MCHC (31.0-37.0) g/dl RDW (11.5-14.5) % Plt Count (120.0-450.0) 10^3/uL Manual Plt Count (120-450) K/mm3 MPV (7.0-11.0) fl Neut % (Auto) (50.0-68.0) % Lymph % (Auto) (22.0-35.0) % Pershing % (Auto) (1.0-6.0) % Eos % (Auto) (1.5-5.0) % Baso % (Auto) (0.0-3.0) % Lymph # (Auto) (1.2-3.4) Pershing # (Auto) (0.1-0.6) Eos # (Auto) (0.0-0.7) Baso # (Auto) (0.0-2.0) K/mm3 Absolute Neuts (auto) (1.4-6.5) Neutrophils % (Manual) (50.0-70.0) % Lymphocytes % (Manual) (22.0-35.0) % Monocytes % (Manual) (1.0-6.0) % Eosinophils % (Manual) (0.0-3.0) % Basophils % (Manual) (0.0-1.0) % Platelet Evaluation (NORMAL) Polychromasia Hypochromasia Poikilocytosis (manual Anisocytosis (manual) Microcytosis (manual) Ovalocytes Schistocytes Sodium (132-148) mmol/L Potassium (3.6-5.0) mmol/L Chloride (98-107) mmol/L Carbon Dioxide (21-33) mmol/L Anion Gap (10-20) BUN (7-21) mg/dL Creatinine (0.7-1.2) mg/dl Est GFR ( Amer) Est GFR (Non-Af Amer) Random Glucose (70-110) mg/dL Hemoglobin A1c (4.2-6.5) % Calcium (8.4-10.5) mg/dL Phosphorus (2.5-4.5) mg/dL Magnesium (1.7-2.2) mg/dL Total Bilirubin (0.2-1.3) mg/dL AST (14-36) U/L ALT (7-56) U/L Alkaline Phosphatase (38-126) U/L Troponin I ng/mL Total Protein (5.8-8.3) g/dL Albumin (3.0-4.8) g/dL Globulin gm/dL Albumin/Globulin Ratio (1.1-1.8) Triglycerides (35-160) mg/dL Cholesterol (130-200) mg/dL LDL Cholesterol Direct (0-129) mg/dL HDL Cholesterol (29-60) mg/dL Procalcitonin 0.52 H (0.19-0.49) NG/ML TSH 3rd Generation (0.46-4.68) mIU/mL Urine Color (YELLOW) Urine Appearance (CLEAR) Urine pH (4.7-8.0) Ur Specific [place] (1.005-1.035) Urine Protein (<30 mg/dL) mg/dL Urine Glucose (UA) (NEGATIVE) mg/dL Urine Ketones (NEGATIVE) mg/dL Urine Blood (NEGATIVE) Urine Nitrate (NEGATIVE) Urine Bilirubin (NEGATIVE) Urine Urobilinogen (<1 E.U./dL) E.U./dL Ur Leukocyte Esterase (NEGATIVE) Liana/uL Urine RBC (0-2) /hpf Urine WBC (0-6) /hpf Ur Epithelial Cells (0-5) /hpf Amorphous Sediment (NONE) /hpf Urine Bacteria (NONE) /hpf Fine Granular Casts (NONE) /hpf Ur L.pneumophila Ag (NEGATIVE) Blood Type Antibody Screen Crossmatch BBK History Checked Laboratory Results - last 24 hr 07/16/18 07/16/18 07/17/18 19:00 21:10 03:15 WBC RBC Hgb Hct MCV MCH MCHC RDW Plt Count Manual Plt Count MPV Neut % (Auto) Lymph % (Auto) Pershing % (Auto) Eos % (Auto) Baso % (Auto) Lymph # (Auto) Pershing # (Auto) Eos # (Auto) Baso # (Auto) Absolute Neuts (auto) Neutrophils % (Manual) Lymphocytes % (Manual) Monocytes % (Manual) Eosinophils % (Manual) Basophils % (Manual) Platelet Evaluation Polychromasia Hypochromasia Poikilocytosis (manual Anisocytosis (manual) Microcytosis (manual) Ovalocytes Schistocytes Sodium Potassium Chloride Carbon Dioxide Anion Gap BUN Creatinine Est GFR ( Amer) Est GFR (Non-Af Amer) Random Glucose Hemoglobin A1c Calcium Phosphorus Magnesium Total Bilirubin AST ALT Alkaline Phosphatase Troponin I 0.06 Total Protein Albumin Globulin Albumin/Globulin Ratio Triglycerides Cholesterol LDL Cholesterol Direct HDL Cholesterol Procalcitonin 0.52 H TSH 3rd Generation Urine Color Urine Appearance Urine pH Ur Specific [place] Urine Protein Urine Glucose (UA) Urine Ketones Urine Blood Urine Nitrate Urine Bilirubin Urine Urobilinogen Ur Leukocyte Esterase Urine RBC Urine WBC Ur Epithelial Cells Amorphous Sediment Urine Bacteria Fine Granular Casts Ur L.pneumophila Ag Negative Blood Type Antibody Screen Crossmatch BBK History Checked 07/17/18 07/17/18 07/17/18 03:15 07:50 07:50 WBC 0.9 L* D RBC 2.18 L Hgb 7.0 L D Hct 21.4 L MCV 98.2 MCH 32.1 MCHC 32.7 RDW 16.6 H Plt Count 48 L* Manual Plt Count MPV 8.7 Neut % (Auto) 37.3 L Lymph % (Auto) 40.4 H Pershing % (Auto) 22.3 H Eos % (Auto) 0.0 L Baso % (Auto) 0.0 Lymph # (Auto) 0.4 L Pershing # (Auto) 0.2 Eos # (Auto) 0.0 Baso # (Auto) 0.00 Absolute Neuts (auto) 0.35 L Neutrophils % (Manual) 9 L Lymphocytes % (Manual) 49 H Monocytes % (Manual) 17 H Eosinophils % (Manual) 24 H Basophils % (Manual) 1 Platelet Evaluation Low Polychromasia Slight Hypochromasia 1+ Poikilocytosis (manual Slight Anisocytosis (manual) Slight Microcytosis (manual) Slight Ovalocytes Slight Schistocytes Slight Sodium 141 Potassium 3.5 L Chloride 115 H Carbon Dioxide 22 Anion Gap 8 L BUN 17 Creatinine 1.3 H Est GFR ( Amer) 52 Est GFR (Non-Af Amer) 43 Random Glucose 93 Hemoglobin A1c Calcium 7.9 L Phosphorus 3.7 Magnesium 1.8 Total Bilirubin 0.9 AST 30 ALT 47 Alkaline Phosphatase 82 Troponin I Total Protein 5.6 L Albumin 2.6 L Globulin 2.9 Albumin/Globulin Ratio 0.9 L Triglycerides 92 Cholesterol 101 L LDL Cholesterol Direct 34 HDL Cholesterol 29 Procalcitonin TSH 3rd Generation Urine Color Yellow Urine Appearance Cloudy Urine pH 6.5 Ur Specific [place] 1.025 Urine Protein 30 H Urine Glucose (UA) Negative Urine Ketones Trace H Urine Blood Negative Urine Nitrate Negative Urine Bilirubin Negative Urine Urobilinogen 1.0 H Ur Leukocyte Esterase Negative Urine RBC 0 - 2 Urine WBC 0 - 2 Ur Epithelial Cells 0 - 2 Amorphous Sediment Many Urine Bacteria None Fine Granular Casts 0 - 2 Ur L.pneumophila Ag Blood Type Antibody Screen Crossmatch BBK History Checked 07/17/18 07/17/18 07/17/18 07:50 08:00 09:16 WBC RBC Hgb Hct MCV MCH MCHC RDW Plt Count Manual Plt Count 50 L MPV Neut % (Auto) Lymph % (Auto) Pershing % (Auto) Eos % (Auto) Baso % (Auto) Lymph # (Auto) Pershing # (Auto) Eos # (Auto) Baso # (Auto) Absolute Neuts (auto) Neutrophils % (Manual) Lymphocytes % (Manual) Monocytes % (Manual) Eosinophils % (Manual) Basophils % (Manual) Platelet Evaluation Polychromasia Hypochromasia Poikilocytosis (manual Anisocytosis (manual) Microcytosis (manual) Ovalocytes Schistocytes Sodium Potassium Chloride Carbon Dioxide Anion Gap BUN Creatinine Est GFR ( Amer) Est GFR (Non-Af Amer) Random Glucose Hemoglobin A1c 6.3 Calcium Phosphorus Magnesium Total Bilirubin AST ALT Alkaline Phosphatase Troponin I Total Protein Albumin Globulin Albumin/Globulin Ratio Triglycerides Cholesterol LDL Cholesterol Direct HDL Cholesterol Procalcitonin TSH 3rd Generation 0.64 Urine Color Urine Appearance Urine pH Ur Specific [place] Urine Protein Urine Glucose (UA) Urine Ketones Urine Blood Urine Nitrate Urine Bilirubin Urine Urobilinogen Ur Leukocyte Esterase Urine RBC Urine WBC Ur Epithelial Cells Amorphous Sediment Urine Bacteria Fine Granular Casts Ur L.pneumophila Ag Blood Type Antibody Screen Crossmatch BBK History Checked 07/17/18 11:50 WBC RBC Hgb Hct MCV MCH MCHC RDW Plt Count Manual Plt Count MPV Neut % (Auto) Lymph % (Auto) Pershing % (Auto) Eos % (Auto) Baso % (Auto) Lymph # (Auto) Pershing # (Auto) Eos # (Auto) Baso # (Auto) Absolute Neuts (auto) Neutrophils % (Manual) Lymphocytes % (Manual) Monocytes % (Manual) Eosinophils % (Manual) Basophils % (Manual) Platelet Evaluation Polychromasia Hypochromasia Poikilocytosis (manual Anisocytosis (manual) Microcytosis (manual) Ovalocytes Schistocytes Sodium Potassium Chloride Carbon Dioxide Anion Gap BUN Creatinine Est GFR ( Amer) Est GFR (Non-Af Amer) Random Glucose Hemoglobin A1c Calcium Phosphorus Magnesium Total Bilirubin AST ALT Alkaline Phosphatase Troponin I Total Protein Albumin Globulin Albumin/Globulin Ratio Triglycerides Cholesterol LDL Cholesterol Direct HDL Cholesterol Procalcitonin TSH 3rd Generation Urine Color Urine Appearance Urine pH Ur Specific [place] Urine Protein Urine Glucose (UA) Urine Ketones Urine Blood Urine Nitrate Urine Bilirubin Urine Urobilinogen Ur Leukocyte Esterase Urine RBC Urine WBC Ur Epithelial Cells Amorphous Sediment Urine Bacteria Fine Granular Casts Ur L.pneumophila Ag Blood Type B POSITIVE Antibody Screen Negative Crossmatch See Detail BBK History Checked Patient has bt EKG/Cardiology Studies: Cardiology / EKG Studies 07/16/18 21:01 ELECTROCARDIOGRAM Stat Comment: Reason For Exam: chest pain Does Patient Have a Pacemaker?: No PERFORMING PHYSICIAN/PROVIDER:: Stewart Arroyo Critical Care Progress Note - Nutrition Nutrition: Nutrition Category Date Time Status Heart Healthy Diet [DIET] Diets 07/16/18 Dinner Active Assessment/Plan - Assessment and Plan (Free Text) Assessment: 53 y/o F with PMH of high grade myelodysplastic syndrome s/p chemotherapy 1 month prior, lung cancer s/p lobectomy, R breast mastectomy, COPD, endocarditis presenting with 102 F fevers, chills, tachycardia and pancytopenia. ICU consulted for tachycardia, fever, and neutropenia. Pt had femoral line placed today and levophed started. Plan: Neuro: - AOx3 Cardio: Neutropenic septic shock likely 2/2 PNA: - Cont current abx reigmen as per ID - Pt placed on Levophed - Pt started on albumin per cardio - Hold BP meds per cardio and given underlying shock - Ensure MAP >65 - Will cont to closely monitor Tachycardia: - Likely responsive to underlying sepsis - Pts HR is 119 - f/u Echo Heme: Pancytopenia 2/2 Accelerated MDS with recent chemo tx: - H&H: 7.0/21.4, Platelets: 48 and WBC = .9, ANC= .35 - Heme/onc consulted, recs appreciated - Granix 300 started daily for 5 days - Coags, fibrinogen and fibrin split products - 2 units pRBCs and 1 unit FFP ordered - Transfusion pretreatment with benadryl, tylenol and solu-cortef Pulm: Neutropenic septic shock likely 2/2 PNA: - Chest CT: No evidence for PE. Bullous emphysema. Postoperative changes in right lung apex with focal consolidation possibly representing a pneumonia. Two nonspecific low-attenuation lesions in the left lobe of the liver. - Cont Abx as per ID - Procal elevated .52 - Flu (-) - Blood Cxs: (-) after 24 hours Hx of COPD: - Cont Xopenex TID - Solumedrol 40 IV q8 - Pulmicort BID - Acetylcystine BID - Ensure O2 sat >88 GI: - Protonix 40 IV - HHD Nephro: ZACKERY likely 2/2 Septic shock: - Pt on levophed, improving renal perfusion - Will give lasix to help with pulm edema - Keep pt euvolemic - Will cont to monitor Case seen and discussed with Dr. Juan Yoon, PGY1 <Nelson Martinez - Last Filed: 07/18/18 17:08> CCU Objective - Vital Signs / Intake & Output Vital Signs (Last 4 hours): Vital Signs BP 07/18/18 14:55 104/68 Intake and Output (Last 8hrs): Intake & Output 07/18/18 07/18/18 07/18/18 06:59 14:59 22:59 Intake Total 1637 0 200 Output Total 1500 Balance 137 0 200 Intake: IV 700 0 200 Right Femoral 450 Oral 300 Blood Product 637 Output: Urine 1500 Urine, Voided 1500 Other: # Bowel Movements 1 - Medications Active Medications: Active Medications Generic Name Dose Route Start Last Admin Trade Name Freq PRN Reason Stop Dose Admin Acetaminophen 650 mg 07/16/18 15:30 07/17/18 11:32 Tylenol 325mg Tab PO 650 mg Q6H PRN Administration Fever >100.4 F Acetylcysteine 4 ml 07/17/18 20:00 07/18/18 07:50 Acetylcysteine 20% IH 4 ml BIDRESP KAYLEIGH Administration Atenolol 25 mg 07/16/18 18:00 07/16/18 19:00 Tenormin PO 25 mg BID KAYLEIGH Administration Budesonide 0.5 mg 07/17/18 20:00 07/18/18 07:50 Pulmicort Respules IH 0.5 mg [id number] KAYLEIGH Administration Doxycycline Hyclate 100 mg 07/17/18 22:00 07/18/18 10:13 Doryx PO 07/22/18 22:01 Not Given Q12 KAYLEIGH Protocol NOREPINEPHRINE BIT/0.9 % NACL 4 mg in 250 mls @ 15 mls/hr 07/17/18 07:50 07/18/18 15:02 Levophed 4 Mg/ 250 Ml Ns Premixed IV 0 mcg/min .[id number] PRN 0 mls/hr TITRATE PER MD ORDER Titration Protocol 4 MCG/MIN Vasopressin 20 units/ Sodium 101 mls @ 9.09 mls/hr 07/18/18 10:00 07/18/18 14:55 Chloride IV 9.09 mls/hr .[id number] KAYLEIGH Administration Protocol 0.03 U/MIN Dextrose/Sodium Chloride 1,000 mls @ 75 mls/hr 07/18/18 10:00 Dextrose 5%/0.9% Ns 1000 Ml IV .[id number] KAYLEIGH Meropenem 1 gm in 50 mls @ 100 mls/hr 07/18/18 18:00 Merrem Iv 1 Gm Premix IVPB 07/24/18 22:01 0600,1800 KAYLEIGH Protocol Levalbuterol HCl 0.63 mg 07/17/18 14:00 07/18/18 14:03 Xopenex IH 0.63 mg TIDRESP KAYLEIGH Administration Methylprednisolone 40 mg 07/17/18 14:00 07/18/18 14:33 Solu-Medrol IVP 40 mg Q8 KAYLEIGH Administration Nicotine 1 patch 07/17/18 15:30 07/18/18 09:09 Nicoderm Cq TD 1 patch DAILY KAYLEIGH Administration Ondansetron HCl 6 mg 07/18/18 12:09 07/18/18 14:34 Zofran Inj IVP 6 mg Q6H PRN Administration Nausea/Vomiting Oxycodone HCl 5 mg 07/16/18 21:38 07/17/18 16:54 Oxycodone Immediate Release Tab PO 5 mg Q6H PRN Administration Pain, severe (8-10) Pantoprazole Sodium 40 mg 07/18/18 07:30 07/18/18 09:09 Protonix Ec Tab PO 40 mg ACB KAYLEIGH Administration - Patient Studies Lab Studies: Microbiology Studies 07/16/18 10:10 Blood Culture - Preliminary Blood NO GROWTH AFTER 48 HOURS 07/16/18 09:30 Blood Culture - Preliminary Blood NO GROWTH AFTER 48 HOURS 07/17/18 01:01 Gram Stain - Final Sputum Sputum Culture - Preliminary NORMAL ORAL SARAH 07/16/18 12:00 Urine Culture - Final Urine Random No Growth (<1,000 CFU/ML) 07/16/18 20:30 MRSA Culture (Admit) - Final Naris MRSA NOT DETECTED Lab Studies 07/18/18 07/18/18 07/18/18 Range/Units 05:05 05:05 05:05 WBC 1.1 L* D (4.5-11.0) 10^3/uL RBC 3.08 L (3.5-6.1) 10^6/uL Hgb 9.6 L (12.0-16.0) g/dL Hct 28.2 L (36.0-48.0) % MCV 91.6 D (80.0-105.0) fl MCH 31.2 (25.0-35.0) pg MCHC 34.0 (31.0-37.0) g/dl RDW 17.6 H (11.5-14.5) % Plt Count 38 L* (120.0-450.0) 10^3/uL Manual Plt Count 45 L* (120-450) K/mm3 MPV 9.1 (7.0-11.0) fl Neut % (Auto) 24.6 L (50.0-68.0) % Lymph % (Auto) 37.7 H (22.0-35.0) % Pershing % (Auto) 37.7 H (1.0-6.0) % Eos % (Auto) 0.0 L (1.5-5.0) % Baso % (Auto) 0.0 (0.0-3.0) % Lymph # (Auto) 0.4 L (1.2-3.4) Pershing # (Auto) 0.4 (0.1-0.6) Eos # (Auto) 0.0 (0.0-0.7) Baso # (Auto) 0.00 (0.0-2.0) K/mm3 Absolute Neuts (auto) 0.28 L (1.4-6.5) pCO2 (35-45) mm/Hg pO2 (80-100) mm/Hg HCO3 (21-28) mmol/L ABG pH (7.35-7.45) ABG Total CO2 (22-28) mmol.L ABG O2 Saturation (95-98) % ABG O2 Content (15-23) ML/dl ABG Base Excess (-2.0-3.0) mmol/L ABG Hemoglobin (11.7-17.4) g/dL ABG Carboxyhemoglobin (0.5-1.5) % POC ABG HHb (Measured) (0-5) % ABG Methemoglobin (0.0-3.0) % ABG O2 Capacity (16-24) mL/dl Hgb O2 Saturation (95.0-98.0) % FiO2 % Crit Value Called To Crit Value Called By Blood Gas Notified Time Sodium 141 (132-148) mmol/L Potassium 4.2 (3.6-5.0) mmol/L Chloride 107 (98-107) mmol/L Carbon Dioxide 24 (21-33) mmol/L Anion Gap 14 (10-20) BUN 23 H (7-21) mg/dL Creatinine 1.7 H (0.7-1.2) mg/dl Est GFR ( Amer) 38 Est GFR (Non-Af Amer) 31 Random Glucose 151 H (70-110) mg/dL Calcium 8.7 (8.4-10.5) mg/dL Phosphorus 4.1 (2.5-4.5) mg/dL Magnesium 1.9 (1.7-2.2) mg/dL Total Bilirubin 2.1 H (0.2-1.3) mg/dL AST 51 H D (14-36) U/L ALT 42 (7-56) U/L Alkaline Phosphatase 88 (38-126) U/L Total Protein 6.4 (5.8-8.3) g/dL Albumin 3.3 (3.0-4.8) g/dL Globulin 3.0 gm/dL Albumin/Globulin Ratio 1.1 (1.1-1.8) Blood Type Antibody Screen Crossmatch BBK History Checked 07/18/18 07/18/18 07/17/18 Range/Units 05:00 02:35 11:50 WBC (4.5-11.0) 10^3/uL RBC (3.5-6.1) 10^6/uL Hgb 9.3 L D (12.0-16.0) g/dL Hct 27.9 L (36.0-48.0) % MCV (80.0-105.0) fl MCH (25.0-35.0) pg MCHC (31.0-37.0) g/dl RDW (11.5-14.5) % Plt Count (120.0-450.0) 10^3/uL Manual Plt Count (120-450) K/mm3 MPV (7.0-11.0) fl Neut % (Auto) (50.0-68.0) % Lymph % (Auto) (22.0-35.0) % Pershing % (Auto) (1.0-6.0) % Eos % (Auto) (1.5-5.0) % Baso % (Auto) (0.0-3.0) % Lymph # (Auto) (1.2-3.4) Pershing # (Auto) (0.1-0.6) Eos # (Auto) (0.0-0.7) Baso # (Auto) (0.0-2.0) K/mm3 Absolute Neuts (auto) (1.4-6.5) pCO2 32 L (35-45) mm/Hg pO2 43.0 L* (80-100) mm/Hg HCO3 19.8 L (21-28) mmol/L ABG pH 7.40 (7.35-7.45) ABG Total CO2 20.8 L (22-28) mmol.L ABG O2 Saturation 90.7 L (95-98) % ABG O2 Content 11.0 L (15-23) ML/dl ABG Base Excess -4.4 L (-2.0-3.0) mmol/L ABG Hemoglobin 8.9 L (11.7-17.4) g/dL ABG Carboxyhemoglobin 2.5 H (0.5-1.5) % POC ABG HHb (Measured) 9.0 H (0-5) % ABG Methemoglobin 1.0 (0.0-3.0) % ABG O2 Capacity 12.1 L (16-24) mL/dl Hgb O2 Saturation 87.5 L (95.0-98.0) % FiO2 36.0 % Crit Value Called To Mireille israel rn Crit Value Called By [facility] Blood Gas Notified Time 615 Sodium (132-148) mmol/L Potassium (3.6-5.0) mmol/L Chloride (98-107) mmol/L Carbon Dioxide (21-33) mmol/L Anion Gap (10-20) BUN (7-21) mg/dL Creatinine (0.7-1.2) mg/dl Est GFR ( Amer) Est GFR (Non-Af Amer) Random Glucose (70-110) mg/dL Calcium (8.4-10.5) mg/dL Phosphorus (2.5-4.5) mg/dL Magnesium (1.7-2.2) mg/dL Total Bilirubin (0.2-1.3) mg/dL AST (14-36) U/L ALT (7-56) U/L Alkaline Phosphatase (38-126) U/L Total Protein (5.8-8.3) g/dL Albumin (3.0-4.8) g/dL Globulin gm/dL Albumin/Globulin Ratio (1.1-1.8) Blood Type B POSITIVE Antibody Screen Negative Crossmatch See Detail BBK History Checked Patient has bt Laboratory Results - last 24 hr 07/17/18 07/18/18 07/18/18 11:50 02:35 05:00 WBC RBC Hgb 9.3 L D Hct 27.9 L MCV MCH MCHC RDW Plt Count Manual Plt Count MPV Neut % (Auto) Lymph % (Auto) Pershing % (Auto) Eos % (Auto) Baso % (Auto) Lymph # (Auto) Pershing # (Auto) Eos # (Auto) Baso # (Auto) Absolute Neuts (auto) pCO2 32 L pO2 43.0 L* HCO3 19.8 L ABG pH 7.40 ABG Total CO2 20.8 L ABG O2 Saturation 90.7 L ABG O2 Content 11.0 L ABG Base Excess -4.4 L ABG Hemoglobin 8.9 L ABG Carboxyhemoglobin 2.5 H POC ABG HHb (Measured) 9.0 H ABG Methemoglobin 1.0 ABG O2 Capacity 12.1 L Hgb O2 Saturation 87.5 L FiO2 36.0 Crit Value Called To Mireille israel rn Crit Value Called By [facility] Blood Gas Notified Time 615 Sodium Potassium Chloride Carbon Dioxide Anion Gap BUN Creatinine Est GFR ( Amer) Est GFR (Non-Af Amer) Random Glucose Calcium Phosphorus Magnesium Total Bilirubin AST ALT Alkaline Phosphatase Total Protein Albumin Globulin Albumin/Globulin Ratio Blood Type B POSITIVE Antibody Screen Negative Crossmatch See Detail BBK History Checked Patient has bt 07/18/18 07/18/18 07/18/18 05:05 05:05 05:05 WBC 1.1 L* D RBC 3.08 L Hgb 9.6 L Hct 28.2 L MCV 91.6 D MCH 31.2 MCHC 34.0 RDW 17.6 H Plt Count 38 L* Manual Plt Count 45 L* MPV 9.1 Neut % (Auto) 24.6 L Lymph % (Auto) 37.7 H Pershing % (Auto) 37.7 H Eos % (Auto) 0.0 L Baso % (Auto) 0.0 Lymph # (Auto) 0.4 L Pershing # (Auto) 0.4 Eos # (Auto) 0.0 Baso # (Auto) 0.00 Absolute Neuts (auto) 0.28 L pCO2 pO2 HCO3 ABG pH ABG Total CO2 ABG O2 Saturation ABG O2 Content ABG Base Excess ABG Hemoglobin ABG Carboxyhemoglobin POC ABG HHb (Measured) ABG Methemoglobin ABG O2 Capacity Hgb O2 Saturation FiO2 Crit Value Called To Crit Value Called By Blood Gas Notified Time Sodium 141 Potassium 4.2 Chloride 107 Carbon Dioxide 24 Anion Gap 14 BUN 23 H Creatinine 1.7 H Est GFR ( Amer) 38 Est GFR (Non-Af Amer) 31 Random Glucose 151 H Calcium 8.7 Phosphorus 4.1 Magnesium 1.9 Total Bilirubin 2.1 H AST 51 H D ALT 42 Alkaline Phosphatase 88 Total Protein 6.4 Albumin 3.3 Globulin 3.0 Albumin/Globulin Ratio 1.1 Blood Type Antibody Screen Crossmatch BBK History Checked Radiology Impressions: Radiology Impressions Abdomen X-Ray 07/17/18 16:33 IMPRESSION: Nonspecific bowel gas pattern. No definite free air. Mild blunting of the costophrenic angles may reflect pleural effusions. Bibasilar atelectasis/infiltrates. Evidence of right sided catheter utilizing femoral approach terminating at approximately the level of L5 on the right. 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
[2018-07-17] MEDS: Levalbuterol 0.63 MG/3 ML Inhal Soln UD IH SCH (13:50)
[2018-07-17] MEDS: MethylPREDNISolone 40 mg Vial IVP SCH ×2 (14:01→22:57)
--- NOTE | 2018-07-17 14:21 | CON ---
DATE: 07/17/2018 PULMONARY CRITICAL CARE PROGRESS NOTE REFERRING PHYSICIAN: August Lara MD. REASON FOR CONSULTATION: Cough, asthma, shortness of breath. HISTORY OF PRESENT ILLNESS: This is a 53-year-old female with past medical history significant for leukemia on chemotherapy. Last chemotherapy was given a week ago. Asthma, sickle-cell, history of lung transplant, right breast mastectomy, depression, COPD. The patient presented to emergency room, complaining of cough, chest pain and shortness of breath had gotten worse over 5 days. She also complained generalized fatigue, nasal congestion, reported that cough was productive with white phlegm production. The patient had some diarrhea. The patient was admitted and overnight was noted to be hypotensive was given 1.5 liters normal saline bolus, blood pressure did not improve. A TLC placement was attempted, but was unable to be placed. The patient was started on vasopressors and was transferred to the ICU where she is seen this morning. She reports still having cough and some shortness of breath, presently on Levophed 4 micrograms, blood pressure during visit 93/63. PAST MEDICAL HISTORY: As per history of present illness. ALLERGIES: NO KNOWN ALLERGIES. SOCIAL HISTORY: No EtOH abuse. No illicit drug use. Smoker, reports last cigarette was Monday. FAMILY HISTORY: Mother had pancreatic gastric cancer, father [place]. MEDICATIONS: Reviewed. Tylenol 650 mg every 6 hours p.r.n. fever greater than 100.4, albumin 12.5 g IV every 6 hours, atenolol 25 mg twice a day, Levaquin 750 mg daily, meropenem 1 g every 8 hours, Levophed 4 mg p.r.n., Zofran 4 mg every 6 hours p.r.n., oxycodone 5 mg every 6 hours, Protonix 40 mg IV push daily, sodium chloride 0.9% 1000 mL at 125 mL per hour. REVIEW OF SYSTEMS: No headache, rhinitis, chest pain, abdominal pain, nausea, vomiting, diarrhea, leg pain, leg swelling reported. The patient does report having cough and shortness of breath. PHYSICAL EXAMINATION GENERAL: No acute distress. VITAL SIGNS: Blood pressure 93/63, pulse 108, oxygen saturation 96% on nasal cannula and temperature 99.2. HEENT: Moist mucous membranes. Mallampati score is 4. Crowded airway. NECK: Supple. No JVD. CHEST: Few rhonchi. CARDIOVASCULAR: S1 and S2. ABDOMEN: Soft and nontender. No distention. No organomegaly. EXTREMITIES: No bilateral lower extremity edema. NEUROLOGIC: Awake, alert, and verbal. Following commands. LABORATORY DATA: Reviewed. WBC 0.9, RBC 2.18, hemoglobin 7, hematocrit 21.4 and platelets 48. PO2 57, pH 7.45, PCO2 of 39, FIO2 of 21. Sodium 141, potassium 3.5, chloride 150, carbon dioxide 22, anion gap 8, BUN 17, creatinine 1.3, GFR 52, random glucose 93, hemoglobin A1C 6.3, calcium 7.9, phosphorus 3.7, magnesium 1.8, total bilirubin 0.9, AST 30, ALT 47, alkaline phosphatase 82, total protein 5.6, albumin 2.6, globulin 2.9, albumin-globulin ratio 0.8, triglycerides 92, cholesterol 101, LDL cholesterol 34, HDL cholesterol 29, TSH is 0.64, BNP 680, troponin 0.06. Urinalysis urine protein 13, urine ketone, trace urine, urobilinogen 1, influenza type A and B negative. Blood cultures preliminary no growth after 24-hours. Chest x-ray shows no active disease. Chest electrocardiogram shows sinus tachycardia with occasional premature ventricular complexes, chest CT shows no evidence pulmonary embolism, bullous emphysema, postoperative changes in right lung apex with focal consolidation, possibly represented pneumonia to nonspecific low attenuation lesions in the left lobe of the liver. Echocardiogram report pending. IMPRESSION AND PLAN: Leukemia, active tobacco use, recently on chemotherapy, neutropenic sepsis, thrombocytopenia, pancytopenia, pneumonia, anemia, sickle-cell anemia, asthma, chronic obstructive pulmonary disease, history of lung cancer in 2006, history of breast cancer in 2004. The patient currently on Levophed for hypertension. Monitor blood pressures. Continue IV antibiotics. Continue gastric prophylaxis. Start the patient SCDs to bilateral lower extremities with deep venous thrombosis prophylaxis due to current anemia status. We will start the patient on inhaled bronchodilators, Xopenex, Pulmicort, Mucomyst. We will start the patient on Solu-Medrol 40 mg every 8 hours. Repeat labs in the morning. The patient presently with hypokalemia given replacement potassium this morning. Echocardiogram pending to be done. We will follow when available. The patient to received pack 2 red blood cells x2 blood transfusion today. Procalcitonin legionella pending. We will followup when available. Critical care time spent more than 35 minutes. This patient was seen and examined with Dr. Maurer. Discussed assessment and plan as described above. This patient was seen and examined with Henry Marquez, nurse practitioner. Discussed assessment and plan as described above. Thank you for this consul. We will follow with you. Henry Marquez APN Solange Maurer MD JONAH
[2018-07-17 15:03] LABS: INR 1.78; PARTIAL THROMBOPLASTIN TIME 27.6 Seconds (26.9-38.3); PROTHROMBIN TIME 19.8 SECONDS (9.4-12.5)
--- NOTE | 2018-07-17 16:07 | RAD ---
Date of service: 07/17/2018 HISTORY: SOB COMPARISON: 07/16/2018 FINDINGS: LUNGS: Bibasilar infiltrates, left greater than right. Likely left lower lobe. PLEURA: Probable small bilateral pleural effusion. No pneumothorax. CARDIOVASCULAR: No aortic atherosclerotic calcification present. Normal cardiac size. No pulmonary vascular congestion. OSSEOUS STRUCTURES: No significant abnormalities. VISUALIZED UPPER ABDOMEN: Normal. OTHER FINDINGS: None. IMPRESSION: Bibasilar infiltrates, left greater than right. Probable small bilateral pleural effusion.
[2018-07-17] MEDS: oxyCODONE 5 mg Immediate Release Tab PO PRN (16:54)
--- NOTE | 2018-07-17 17:19 | RAD ---
Date of service: 07/17/2018 HISTORY: abdominal pain COMPARISON: None available. FINDINGS: Nonspecific bowel gas pattern. No definite free air. Mild blunting of the costophrenic angles may reflect pleural effusions. Bibasilar atelectasis/infiltrates. Evidence of right sided catheter utilizing femoral approach terminating at approximately the level of L5 on the right. IMPRESSION: Nonspecific bowel gas pattern. No definite free air. Mild blunting of the costophrenic angles may reflect pleural effusions. Bibasilar atelectasis/infiltrates. Evidence of right sided catheter utilizing femoral approach terminating at approximately the level of L5 on the right.
--- NOTE | 2018-07-17 18:49 | CARD ---
APPROVED REPORT Date of service: 07/17/2018 EXAM: Two-dimensional and M-mode echocardiogram with Doppler and color Doppler. INDICATION Chest Pain 2D DIMENSIONS Left Atrium (2D)3.2 (1.6-4.0cm)IVSd1.2 (0.7-1.1cm) LVDd4.1 (3.9-5.9cm)PWd1.2 (0.7-1.1cm) LVDs3.1 (2.5-4.0cm)FS (%) 23.3 % LVEF (%)47.1 (>50%) M-Mode DIMENSIONS Aortic Root2.30 (2.2-3.7cm)Aortic Cusp Exc.2.00 (1.5-2.0cm) Aortic Valve AoV Peak Brtfleee436.0cm/Lon Peak GR.6mmHg Mitral Valve E/A ratio0.0 TDI E/Lateral E'0.0E/Medial E'0.0 Tricuspid Valve TR Peak [id number] Peak Gr.24mmHg [id number] LEFT VENTRICLE The left ventricle is normal size. There is mild concentric left ventricular hypertrophy. The systolic function is mildly impaired.EF-45-50% There is normal LV segmental wall motion. Transmitral Doppler flow pattern is Grade III-reversible restrictive diastolic dysfunction. No left ventricle thrombus noted on this study. There is no ventricular septal defect visualized. There is no left ventricular aneurysm. There is no mass noted in the left ventricle. RIGHT VENTRICLE The right ventricle is normal size. There is normal right ventricular wall thickness. The right ventricular systolic function is normal. ATRIA The left atrium size is normal. The right atrium size is normal. The interatrial septum is intact with no evidence for an atrial septal defect. AORTIC VALVE The aortic valve is thickened but opens well. There is trace aortic regurgitation. There is no aortic valvular stenosis. There is no aortic valvular vegetation. MITRAL VALVE The mitral valve is thickened but opens well. Mitral regurgitation is moderate. There is no mitral valve stenosis. There is no evidence of mitral valve prolapse. TRICUSPID VALVE The tricuspid valve leaflets are thickened , but open well. There is mild to moderate tricuspid regurgitation.RVSP-31 mmof Hg. There is no tricuspid valve stenosis. There is no tricuspid valve prolapse or vegetation. PULMONIC VALVE The pulmonary valve is normal in structure. There is trace to mild pulmonic valvular regurgitation. There is no pulmonic valvular stenosis. GREAT VESSELS The aortic root is normal in size. The ascending aorta is normal in size. The pulmonary artery is normal. The IVC is normal in size and collapses >50% with inspiration. PERICARDIAL EFFUSION There is no pleural effusion. There is no pericardial effusion. <Conclusion> The left ventricle is normal size. There is mild concentric left ventricular hypertrophy. The systolic function is mildly impaired.EF-45-50% There is trace aortic regurgitation. Mitral regurgitation is moderate. There is mild to moderate tricuspid regurgitation.RVSP-31 mmof Hg. There is trace to mild pulmonic valvular regurgitation. The IVC is normal in size and collapses >50% with inspiration. There is no pericardial effusion. No vegetation or thrombus noted.
--- NOTE | 2018-07-17 19:17 | CON ---
DATE: 07/17/2018 HISTORY OF PRESENT ILLNESS: This is a 53-year-old female with past medical history of leukemia on chemotherapy, asthma, and also had breast CA in 2004 and history of lung CA in 2006, and now on chemotherapy for leukemia and came in with cough and chest pain. The patient was transferred to ICU. SOCIAL HISTORY: Smokes and does not drink. PHYSICAL EXAMINATION NEUROLOGICAL: The recent generalized weakness possibly secondary to chemotherapy, leukemia. ASSESSMENT: At this time admitted with sepsis and pancytopenia, neutropenic sepsis, and anemia. PLAN: Workup in progress, continue present management. We will follow up. Clark Baird MD
[2018-07-18] MEDS: Albumin Human 25% (12.5 gm/50 ml) IV SCH ×3 (01:45→12:00)
[2018-07-18] MEDS: NOREPINEPHRINE BIT/0.9 % NACL 4 MG/250 ML BAG IV PRN (02:02)
[2018-07-18 02:47] LABS: HEMOGLOBIN 9.3 g/dL (12.0-16.0)
--- NOTE | 2018-07-18 03:57 | CON ---
DATE: 07/17/2018 ONCOLOGY CRITICAL CARE CONSULTATION NOTE REFERRING DOCTOR: August Lara MD LOCATION: The patient is currently in CCU, bed 7. 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 Treatments were held because the patient's blood count was on the lower side including thrombocytopenia and neutropenia. Treatments were put on hold to see how bounce back. The patient was having some low-grade symptoms of fevers and we wanted to make sure that we can treat her while she was having some viral syndrome. The patient was admitted to the emergency room with fevers and chills and significant hypertension and shortness of breath, found to have in the ER evidence of pneumonia in the background history of significant changes in the lung with COPD. In view of this, the patient was admitted to the floor and as she was relatively hypotensive, the patient was started on IV fluids, covered with broad-spectrum antibiotics as she was pancytopenic and then during the night, the patient had a progressive downhill course, became more hypotensive and then she was transferred over to the intensive care unit where she had catheter put in. The patient was started on pressors and is on IV fluids along with IV the antibiotics and the patient has had a positive turn for the better early this morning. The patient as I mentioned has high-grade MDS, which can evolve into acute leukemia and had been on decitabine-based chemotherapy that was given once a month for the last 6 months, was being administered at [facility], last treatment at [place] was in April. Starting 05/2017, we took over her care. The patient was not a transplant candidate and they recommended as a best supportive care was continuing decitabine and then adding another drug to it if she should progressively worsen. The patient had one treatment with this decitabine chemotherapy in May. She was supposed to get her next treatment now and then she is now admitted with the aforementioned complaints. The patient has been complaining of generalized fatigue, nasal congestion, cough, and productive phlegm. She has some diarrhea as well and then as I mentioned the patient's condition deteriorated overnight and she was transferred to the ICU. The patient does have history of heavy smoking in the past and because of that her lungs have been affected and the patient has very poor lung reserve and that she was thought not to be a candidate for either autologous bone marrow transplant or an allogenic transplant. The patient also has a history of prior surgery for breast cancer, prior surgery for lung collapse, and even though she has not smoked for at least several months. ALLERGIES: THE PATIENT HAS NO KNOWN ALLERGIES. SOCIAL HISTORY: The patient does have history of ethanol abuse in the past and as I mentioned the patient is a smoker, though she has cut back on the smoking and based on different reports, her last smoking was several weeks ago until september be last Monday. FAMILY HISTORY: Significant for mother having pancreatic cancer and father having an NV. MEDICATIONS: The patient's medications were reviewed. She is on Tylenol every 6 hours p.r.n., albumin 12.5 g every 6 hours, atenolol 25 mg twice a day, Levaquin 75 mg daily, meropenem 1 g every 8 hours, Levophed 4 mg p.r.n. titrated to keep systolic above 90, Zofran 4 mg IV every 6 hours p.r.n. for nausea, oxycodone 5 mg every 6 hours, Protonix 40 mg IV daily, and normal saline 125 mL per hour. REVIEW OF SYSTEMS: The patient denies any headaches or rhinitis. The patient is having significant coughing with nasal stuffiness. Coughing, she is bringing up productive phlegm. No hemoptysis. The patient denies any significant abdominal pain. She has been having significant nausea, requiring several doses of Zofran. No significant leg pain. The patient does have shortness of breath associated with the cough. PHYSICAL EXAMINATION: GENERAL: The patient appears to be in some distress because of her coughing. VITAL SIGNS: Reveals blood pressure of 93/63, pulse is 108, O2 sat is 96%on nasal cannula, and T-max is 99. HEENT: Head is normocephalic and atraumatic. The patient's Mallampati score is 4. Crowded airways are noted. Tongue is dry. No ulcerations are noted. NECK: Supple. There is no adenopathy. No jugular venous distention noted. LUNGS: Reveal bilateral rhonchi. CARDIOVASCULAR: Reveals tachycardia. S1 and S2 is noted. ABDOMEN: Soft, scaphoid and nontender. No organomegaly is discernible. No is noted. EXTREMITIES: Reveal no significant edema. The patient has a catheter in the right femoral vein. NEUROLOGIC: Higher functions are normal. No focal deficits are noted. The patient is able to answer my questions and simple commands. LABORATORY DATA: Reveals a white count of 0.9 with an ANC of less than 600, RBC 2.8, hemoglobin 7, hematocrit 21, and platelet count 48,000. PO2 is 57, pH of 7.45, pCO2 of 39, and FIO2 of 21. Sodium 141, K is 3.5, chloride 150, CO2 of 22, BUN of 17, and creatinine 1.3. GFR of 52. Glucose of 93. Hemoglobin A1c of 6.3. Calcium 7.9, phosphorous 3.7, magnesium 1.8, and total bilirubin 0.9. AST 30, ALT 47, and alkaline phosphatase 82. Total protein 5.6, albumin 2.6, and globulin 2.9. Triglyceride is 92. Cholesterol 101. TSH 0.64. BNP of 680. Troponin of 0.06. Urine protein 13, urine ketone trace, and urine urobilinogen 1. Influenza type A and B negative. Blood cultures negative for 24 hours. Chest x-ray shows no active disease. On the CAT scan, I continue to see the pneumonia. EKG shows sinus tachycardia with premature VPCs. The patient has bilateral bullous changes on the CAT scan with postoperative changes in the right apex with focal consolidation possibly pneumonia. There are nonspecific attenuation to the left lobe of the liver. Echocardiogram done this morning, results are still pending. 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 Pancytopenia related to the acquired myelodysplastic syndrome with complex cytogenetic changes, history of sickle cell disease, asthma, chronic obstructive pulmonary disease, history of lung cancer in 2006, history of breast cancer in 2004, which was early staged. The patient is currently on Levophed for hypertension. Recommendations, I had detailed discussion with the resident, recommended that the patient be started on growth factors with Granix 300 mcg daily for 5 days, it is controversial in patients with acquired myelodysplastic syndrome, how the impact of the treatment could be, but in view of the febrile episode and the hypotension the danger of the patient going into hypotensive shock reduced that the Granix may be helpful in raising the count and thereby improving her chances with recovering from the sepsis. The patient also will be getting 2 units of blood to increase the oncotic load in the intravascular system, so pressures could go up. If the pressure continue to drop, I recommend giving her plasma to increase the renal plasma flow as well, they are protecting the kidneys. The patient is already on broad-spectrum antibiotics. She is going to be seen by ID for inhaled bronchodilators Xopenex, Pulmicort, Mucomyst, and Solu-Medrol. Repeat labs for the a.m. have been requested. The patient is being replaced for her low potassium. Procalcitonin is pending. I had a detailed discussion with the patient's and I spoke to patient's daughter as well along with the resident. Time spent in correlating all the facts, talking to the family, and talking to various consultants. Time spent is greater than 80 minutes. Blood flow cytometrics have also been sent. We will review the previous path and then make appropriate recommendations. Her choices for treatment for this complex issue will be accelerated myelodysplastic syndrome, but the patient is not a candidate for transplant would be a combination of azacitidine with BCL-2 inhibitor such as Venetoclax, which has been recommended for the patients who are even evolving into leukemia and are poor medical candidates that would be one option. They have been also charged for including immunotherapy with nivolumab along with azacitidine for the treatment of poor prognostic acute myeloid leukemia or leukemias from underlying complex accelerated myelodysplastic syndrome. I will discuss my case and the patient's management issues with the leukemia specialist at [place] as well. We will review the labs and follow the patient with you on a daily basis. Please make a note this is a complex patient with multiple comorbid medical issues. Again, time spent is greater than 80 minutes. Delfin Lopez MD
[2018-07-18] MEDS: Meropenem IV 1 gm in NS 1 GM/50 ML BAG IVPB SCH ×2 (05:15→17:43)
[2018-07-18] MEDS: MethylPREDNISolone 40 mg Vial IVP SCH ×3 (05:16→22:27)
[2018-07-18 06:07] LABS: HEMOGLOBIN 9.6 g/dL (12.0-16.0); LYMPH # 0.4 (1.2-3.4); LYMPH % 37.7 % (22.0-35.0); MEAN CELL VOLUME 91.6 fl (80.0-105.0); MEAN CORPUSCULAR HEMOGLOBIN 31.2 pg (25.0-35.0); MEAN PLATELET VOLUME 9.1 fl (7.0-11.0); MONO # 0.4 (0.1-0.6); MONO % 37.7 % (1.0-6.0); RBC 3.08 10^6/uL (3.5-6.1); RED CELL DISTRIBUTION WIDTH 17.6 % (11.5-14.5)
[2018-07-18 06:15] LABS: ARTERIAL BLOOD GAS HCO3 19.8 mmol/L (21-28); ARTERIAL BLOOD GAS HEMOGLOBIN 8.9 g/dL (11.7-17.4); ARTERIAL BLOOD GAS O2 CAPACITY 12.1 mL/dl (16-24); ARTERIAL BLOOD GAS O2 SAT 90.7 % (95-98); ARTERIAL BLOOD GAS PCO2 32 mm/Hg (35-45); ARTERIAL BLOOD GAS TCO2 20.8 mmol.L (22-28)
[2018-07-18 06:20] LABS: PLATELET COUNT 38 10^3/uL (120.0-450.0); WHITE BLOOD COUNT 1.1 10^3/uL (4.5-11.0)
[2018-07-18 06:32] LABS: ALB/GLOB RATIO 1.1 (1.1-1.8); ALBUMIN 3.3 g/dL (3.0-4.8); CALCIUM 8.7 mg/dL (8.4-10.5)
[2018-07-18] MEDS: Acetylcysteine 20% Inhal Soln (4ml) IH SCH ×3 (07:50→21:10)
[2018-07-18] MEDS: Budesonide 0.5 mg/2 ml Inhal Susp UD IH SCH ×3 (07:50→21:12)
[2018-07-18] MEDS: Levalbuterol 0.63 MG/3 ML Inhal Soln UD IH SCH ×4 (07:51→21:12)
--- NOTE | 2018-07-18 07:58 | CP.CCUPN ---
<Claus Yoon - Last Filed: 07/18/18 16:48> CCU Subjective - Physician Review Subjective (Free Text): 07/18/18 07:51 Claus Yoon, PGY1 ICU Progress Note: Pt was seen and examined this AM at bedside. Yesterday pt was transfused 2 units pRBC and 1 unit FFP. At this time pt reports feeling SOB which is the same as yesterday and continues to admit to a cough which also has not improved. She admits to continued nausea, particularly with meals. Overnight pt felt SOB and was given lasix to help improve her respiratory status. She otherwise denies any fevers, chills, palpitations, headache, abd pain, c/d or dysuria. CCU Objective - Vital Signs / Intake & Output Vital Signs (Last 4 hours): Vital Signs Temp Pulse Resp BP Pulse Ox 07/18/18 07:30 102 H 39 H 107/69 100 07/18/18 07:20 103 H 34 H 100 07/18/18 07:10 106 H 33 H 97 07/18/18 07:00 103 H 37 H 125/78 100 07/18/18 06:50 102 H 36 H 100 07/18/18 06:40 104 H 33 H 100 07/18/18 06:30 103 H 36 H 113/77 98 07/18/18 06:20 102 H 31 H 99 07/18/18 06:10 103 H 34 H 97 07/18/18 06:00 103 H 30 H 108/81 100 07/18/18 05:50 103 H 39 H 100 07/18/18 05:40 106 H 37 H 100 07/18/18 05:37 107 H 24 102/72 93 L 07/18/18 05:30 109 H 90 L 07/18/18 05:20 109 H 99 07/18/18 05:10 109 H 31 H 100 07/18/18 05:00 106 H 35 H 107/61 100 07/18/18 04:50 105 H 31 H 100 07/18/18 04:45 107 H 35 H 93/51 L 98 07/18/18 04:40 106 H 28 H 97 07/18/18 04:30 108 H 42 H 106/72 97 07/18/18 04:20 105 H 32 H 99 07/18/18 04:15 105 H 28 H 103/67 97 07/18/18 04:10 105 H 29 H 97 07/18/18 04:01 110 H 40 H 104/71 99 07/18/18 04:00 98.8 F 107 H 28 H 97 Intake and Output (Last 8hrs): Intake & Output 07/17/18 07/18/18 07/18/18 22:59 06:59 14:59 Intake Total 900 1637 Output Total 1 1500 Balance 899 137 Intake: IV 500 700 Left Antecubital 500 Right Femoral 450 Oral 400 300 Blood Product 637 Output: Urine 1500 Urine, Voided 1500 Urine/Stool Mix 1 Other: # Voids Urine, Voided 3 # Bowel Movements 1 - Physical Exam Head: Positive for: Atraumatic, Normocephalic Pupils: Positive for: PERRL Extroacular Muscles: Positive for: EOMI Conjunctiva: Positive for: Normal Mouth: Positive for: Moist Mucous Membranes Neck: Positive for: Normal Range of Motion Respiratory/Chest: Positive for: Decreased Breath Sounds. Negative for: Respiratory Distress, Accessory Muscle Use, Wheezes, Rhonchi, Tachypneic Cardiovascular: Positive for: Regular Rate and Rhythm, Normal S1, S2. Negative for: Murmurs Abdomen: Positive for: Normal Bowel Sounds. Negative for: Tenderness, Distention, Rebound, Guarding Upper Extremity: Positive for: Normal ROM. Negative for: Edema Lower Extremity: Positive for: Normal Inspection, Normal ROM. Negative for: Edema Neurological: Positive for: GCS=15, CN II-XII Intact, Speech Normal, Motor Func Grossly Intact Skin: Positive for: Warm, Dry, Normal Color. Negative for: Rashes Psychiatric: Positive for: Alert, Oriented x 3, Normal Insight, Normal Concentration - Medications Active Medications: Active Medications Generic Name Dose Route Start Last Admin Trade Name Freq PRN Reason Stop Dose Admin Acetaminophen 650 mg 07/16/18 15:30 07/17/18 11:32 Tylenol 325mg Tab PO 650 mg Q6H PRN Administration Fever >100.4 F Acetylcysteine 4 ml 07/17/18 20:00 Acetylcysteine 20% IH BIDRESP KAYLEIGH Albumin Human 12.5 gm 07/17/18 11:00 07/18/18 06:20 Albumin Human 25% (12.5 Gm/50 Ml) IV 07/18/18 12:00 12.5 gm Q6H KAYLEIGH Administration Atenolol 25 mg 07/16/18 18:00 07/16/18 19:00 Tenormin PO 25 mg BID KAYLEIGH Administration Budesonide 0.5 mg 07/17/18 20:00 Pulmicort Respules IH [id number] KAYLEIGH Doxycycline Hyclate 100 mg 07/17/18 22:00 07/17/18 22:30 Doryx PO 07/22/18 22:01 100 mg Q12 KAYLEIGH Administration Protocol Meropenem 1 gm in 50 mls @ 100 mls/hr 07/16/18 22:00 07/18/18 05:15 Merrem Iv 1 Gm Premix IVPB 07/24/18 22:01 100 mls/hr Q8 [facility] Administration Protocol NOREPINEPHRINE BIT/0.9 % NACL 4 mg in 250 mls @ 15 mls/hr 07/17/18 07:50 07/18/18 02:02 Levophed 4 Mg/ 250 Ml Ns Premixed IV 15 mcg/min .[id number] PRN 56.25 mls/hr TITRATE PER MD ORDER Administration Protocol 4 MCG/MIN Levalbuterol HCl 0.63 mg 07/17/18 14:00 07/17/18 13:50 Xopenex IH 0.63 mg TIDRESP [facility] Administration Methylprednisolone 40 mg 07/17/18 14:00 07/18/18 05:16 Solu-Medrol IVP 40 mg Q8 KAYLEIGH Administration Nicotine 1 patch 07/17/18 15:30 07/17/18 16:11 Nicoderm Cq TD 1 patch DAILY [facility] Administration Ondansetron HCl 4 mg 07/16/18 18:19 07/17/18 11:33 Zofran Inj IVP 4 mg Q6H PRN Administration Nausea/Vomiting Oxycodone HCl 5 mg 07/16/18 21:38 07/17/18 16:54 Oxycodone Immediate Release Tab PO 5 mg Q6H PRN Administration Pain, severe (8-10) Pantoprazole Sodium 40 mg 07/18/18 07:30 Protonix Ec Tab PO ACB [facility] - Patient Studies Lab Studies: Microbiology Studies 07/17/18 01:01 Gram Stain - Final Sputum 07/16/18 10:10 Blood Culture - Preliminary Blood NO GROWTH AFTER 24 HOURS 07/16/18 09:30 Blood Culture - Preliminary Blood NO GROWTH AFTER 24 HOURS Lab Studies 07/18/18 07/18/18 07/18/18 Range/Units 05:05 05:05 05:00 WBC 1.1 L* D (4.5-11.0) 10^3/uL RBC 3.08 L (3.5-6.1) 10^6/uL Hgb 9.6 L (12.0-16.0) g/dL Hct 28.2 L (36.0-48.0) % MCV 91.6 D (80.0-105.0) fl MCH 31.2 (25.0-35.0) pg MCHC 34.0 (31.0-37.0) g/dl RDW 17.6 H (11.5-14.5) % Plt Count 38 L* (120.0-450.0) 10^3/uL Manual Plt Count (120-450) K/mm3 MPV 9.1 (7.0-11.0) fl Neut % (Auto) 24.6 L (50.0-68.0) % Lymph % (Auto) 37.7 H (22.0-35.0) % [place] % (Auto) 37.7 H (1.0-6.0) % Eos % (Auto) 0.0 L (1.5-5.0) % Baso % (Auto) 0.0 (0.0-3.0) % Lymph # (Auto) 0.4 L (1.2-3.4) [place] # (Auto) 0.4 (0.1-0.6) Eos # (Auto) 0.0 (0.0-0.7) Baso # (Auto) 0.00 (0.0-2.0) K/mm3 Absolute Neuts (auto) 0.28 L (1.4-6.5) Neutrophils % (Manual) (50.0-70.0) % Lymphocytes % (Manual) (22.0-35.0) % Monocytes % (Manual) (1.0-6.0) % Eosinophils % (Manual) (0.0-3.0) % Basophils % (Manual) (0.0-1.0) % Platelet Evaluation (NORMAL) Polychromasia Hypochromasia Poikilocytosis (manual Anisocytosis (manual) Microcytosis (manual) Ovalocytes Schistocytes PT (9.4-12.5) SECONDS INR APTT (26.9-38.3) Seconds Fibrinogen (200-400) mg/dl Fibrin Degrad Products (< 10 ug/mL) pCO2 32 L (35-45) mm/Hg pO2 43.0 L* (80-100) mm/Hg HCO3 19.8 L (21-28) mmol/L ABG pH 7.40 (7.35-7.45) ABG Total CO2 20.8 L (22-28) mmol.L ABG O2 Saturation 90.7 L (95-98) % ABG O2 Content 11.0 L (15-23) ML/dl ABG Base Excess -4.4 L (-2.0-3.0) mmol/L ABG Hemoglobin 8.9 L (11.7-17.4) g/dL ABG Carboxyhemoglobin 2.5 H (0.5-1.5) % POC ABG HHb (Measured) 9.0 H (0-5) % ABG Methemoglobin 1.0 (0.0-3.0) % ABG O2 Capacity 12.1 L (16-24) mL/dl Hgb O2 Saturation 87.5 L (95.0-98.0) % FiO2 36.0 % Crit Value Called To Mireille israel rn Crit Value Called By [facility] Blood Gas Notified Time 615 Sodium 141 (132-148) mmol/L Potassium 4.2 (3.6-5.0) mmol/L Chloride 107 (98-107) mmol/L Carbon Dioxide 24 (21-33) mmol/L Anion Gap 14 (10-20) BUN 23 H (7-21) mg/dL Creatinine 1.7 H (0.7-1.2) mg/dl Est GFR ( Amer) 38 Est GFR (Non-Af Amer) 31 Random Glucose 151 H (70-110) mg/dL Hemoglobin A1c (4.2-6.5) % Calcium 8.7 (8.4-10.5) mg/dL Phosphorus 4.1 (2.5-4.5) mg/dL Magnesium 1.9 (1.7-2.2) mg/dL Total Bilirubin 2.1 H (0.2-1.3) mg/dL AST 51 H D (14-36) U/L ALT 42 (7-56) U/L Alkaline Phosphatase 88 (38-126) U/L Total Protein 6.4 (5.8-8.3) g/dL Albumin 3.3 (3.0-4.8) g/dL Globulin 3.0 gm/dL Albumin/Globulin Ratio 1.1 (1.1-1.8) Triglycerides (35-160) mg/dL Cholesterol (130-200) mg/dL LDL Cholesterol Direct (0-129) mg/dL HDL Cholesterol (29-60) mg/dL Procalcitonin (0.19-0.49) NG/ML TSH 3rd Generation (0.46-4.68) mIU/mL Ur L.pneumophila Ag (NEGATIVE) Blood Type Antibody Screen Crossmatch BBK History Checked 07/18/18 07/17/18 07/17/18 Range/Units 02:35 14:20 14:20 WBC (4.5-11.0) 10^3/uL RBC (3.5-6.1) 10^6/uL Hgb 9.3 L D (12.0-16.0) g/dL Hct 27.9 L (36.0-48.0) % MCV (80.0-105.0) fl MCH (25.0-35.0) pg MCHC (31.0-37.0) g/dl RDW (11.5-14.5) % Plt Count (120.0-450.0) 10^3/uL Manual Plt Count (120-450) K/mm3 MPV (7.0-11.0) fl Neut % (Auto) (50.0-68.0) % Lymph % (Auto) (22.0-35.0) % [place] % (Auto) (1.0-6.0) % Eos % (Auto) (1.5-5.0) % Baso % (Auto) (0.0-3.0) % Lymph # (Auto) (1.2-3.4) [place] # (Auto) (0.1-0.6) Eos # (Auto) (0.0-0.7) Baso # (Auto) (0.0-2.0) K/mm3 Absolute Neuts (auto) (1.4-6.5) Neutrophils % (Manual) (50.0-70.0) % Lymphocytes % (Manual) (22.0-35.0) % Monocytes % (Manual) (1.0-6.0) % Eosinophils % (Manual) (0.0-3.0) % Basophils % (Manual) (0.0-1.0) % Platelet Evaluation (NORMAL) Polychromasia Hypochromasia Poikilocytosis (manual Anisocytosis (manual) Microcytosis (manual) Ovalocytes Schistocytes PT 19.8 H (9.4-12.5) SECONDS INR 1.78 APTT 27.6 (26.9-38.3) Seconds Fibrinogen (200-400) mg/dl Fibrin Degrad Products >10 <40 ug/ml (< 10 ug/mL) pCO2 (35-45) mm/Hg pO2 (80-100) mm/Hg HCO3 (21-28) mmol/L ABG pH (7.35-7.45) ABG Total CO2 (22-28) mmol.L ABG O2 Saturation (95-98) % ABG O2 Content (15-23) ML/dl ABG Base Excess (-2.0-3.0) mmol/L ABG Hemoglobin (11.7-17.4) g/dL ABG Carboxyhemoglobin (0.5-1.5) % POC ABG HHb (Measured) (0-5) % ABG Methemoglobin (0.0-3.0) % ABG O2 Capacity (16-24) mL/dl Hgb O2 Saturation (95.0-98.0) % FiO2 % Crit Value Called To Crit Value Called By Blood Gas Notified Time Sodium (132-148) mmol/L Potassium (3.6-5.0) mmol/L Chloride (98-107) mmol/L Carbon Dioxide (21-33) mmol/L Anion Gap (10-20) BUN (7-21) mg/dL Creatinine (0.7-1.2) mg/dl Est GFR ( Amer) Est GFR (Non-Af Amer) Random Glucose (70-110) mg/dL Hemoglobin A1c (4.2-6.5) % Calcium (8.4-10.5) mg/dL Phosphorus (2.5-4.5) mg/dL Magnesium (1.7-2.2) mg/dL Total Bilirubin (0.2-1.3) mg/dL AST (14-36) U/L ALT (7-56) U/L Alkaline Phosphatase (38-126) U/L Total Protein (5.8-8.3) g/dL Albumin (3.0-4.8) g/dL Globulin gm/dL Albumin/Globulin Ratio (1.1-1.8) Triglycerides (35-160) mg/dL Cholesterol (130-200) mg/dL LDL Cholesterol Direct (0-129) mg/dL HDL Cholesterol (29-60) mg/dL Procalcitonin (0.19-0.49) NG/ML TSH 3rd Generation (0.46-4.68) mIU/mL Ur L.pneumophila Ag (NEGATIVE) Blood Type Antibody Screen Crossmatch BBK History Checked 07/17/18 07/17/18 07/17/18 Range/Units 14:20 11:50 09:16 WBC (4.5-11.0) 10^3/uL RBC (3.5-6.1) 10^6/uL Hgb (12.0-16.0) g/dL Hct (36.0-48.0) % MCV (80.0-105.0) fl MCH (25.0-35.0) pg MCHC (31.0-37.0) g/dl RDW (11.5-14.5) % Plt Count (120.0-450.0) 10^3/uL Manual Plt Count 50 L (120-450) K/mm3 MPV (7.0-11.0) fl Neut % (Auto) (50.0-68.0) % Lymph % (Auto) (22.0-35.0) % [place] % (Auto) (1.0-6.0) % Eos % (Auto) (1.5-5.0) % Baso % (Auto) (0.0-3.0) % Lymph # (Auto) (1.2-3.4) [place] # (Auto) (0.1-0.6) Eos # (Auto) (0.0-0.7) Baso # (Auto) (0.0-2.0) K/mm3 Absolute Neuts (auto) (1.4-6.5) Neutrophils % (Manual) (50.0-70.0) % Lymphocytes % (Manual) (22.0-35.0) % Monocytes % (Manual) (1.0-6.0) % Eosinophils % (Manual) (0.0-3.0) % Basophils % (Manual) (0.0-1.0) % Platelet Evaluation (NORMAL) Polychromasia Hypochromasia Poikilocytosis (manual Anisocytosis (manual) Microcytosis (manual) Ovalocytes Schistocytes PT (9.4-12.5) SECONDS INR APTT (26.9-38.3) Seconds Fibrinogen 628 H* (200-400) mg/dl Fibrin Degrad Products (< 10 ug/mL) pCO2 (35-45) mm/Hg pO2 (80-100) mm/Hg HCO3 (21-28) mmol/L ABG pH (7.35-7.45) ABG Total CO2 (22-28) mmol.L ABG O2 Saturation (95-98) % ABG O2 Content (15-23) ML/dl ABG Base Excess (-2.0-3.0) mmol/L ABG Hemoglobin (11.7-17.4) g/dL ABG Carboxyhemoglobin (0.5-1.5) % POC ABG HHb (Measured) (0-5) % ABG Methemoglobin (0.0-3.0) % ABG O2 Capacity (16-24) mL/dl Hgb O2 Saturation (95.0-98.0) % FiO2 % Crit Value Called To Crit Value Called By Blood Gas Notified Time Sodium (132-148) mmol/L Potassium (3.6-5.0) mmol/L Chloride (98-107) mmol/L Carbon Dioxide (21-33) mmol/L Anion Gap (10-20) BUN (7-21) mg/dL Creatinine (0.7-1.2) mg/dl Est GFR ( Amer) Est GFR (Non-Af Amer) Random Glucose (70-110) mg/dL Hemoglobin A1c (4.2-6.5) % Calcium (8.4-10.5) mg/dL Phosphorus (2.5-4.5) mg/dL Magnesium (1.7-2.2) mg/dL Total Bilirubin (0.2-1.3) mg/dL AST (14-36) U/L ALT (7-56) U/L Alkaline Phosphatase (38-126) U/L Total Protein (5.8-8.3) g/dL Albumin (3.0-4.8) g/dL Globulin gm/dL Albumin/Globulin Ratio (1.1-1.8) Triglycerides (35-160) mg/dL Cholesterol (130-200) mg/dL LDL Cholesterol Direct (0-129) mg/dL HDL Cholesterol (29-60) mg/dL Procalcitonin (0.19-0.49) NG/ML TSH 3rd Generation (0.46-4.68) mIU/mL Ur L.pneumophila Ag (NEGATIVE) Blood Type B POSITIVE Antibody Screen Negative Crossmatch See Detail BBK History Checked Patient has bt 07/17/18 07/17/18 07/17/18 Range/Units 08:00 07:50 07:50 WBC (4.5-11.0) 10^3/uL RBC (3.5-6.1) 10^6/uL Hgb (12.0-16.0) g/dL Hct (36.0-48.0) % MCV (80.0-105.0) fl MCH (25.0-35.0) pg MCHC (31.0-37.0) g/dl RDW (11.5-14.5) % Plt Count (120.0-450.0) 10^3/uL Manual Plt Count (120-450) K/mm3 MPV (7.0-11.0) fl Neut % (Auto) (50.0-68.0) % Lymph % (Auto) (22.0-35.0) % [place] % (Auto) (1.0-6.0) % Eos % (Auto) (1.5-5.0) % Baso % (Auto) (0.0-3.0) % Lymph # (Auto) (1.2-3.4) [place] # (Auto) (0.1-0.6) Eos # (Auto) (0.0-0.7) Baso # (Auto) (0.0-2.0) K/mm3 Absolute Neuts (auto) (1.4-6.5) Neutrophils % (Manual) (50.0-70.0) % Lymphocytes % (Manual) (22.0-35.0) % Monocytes % (Manual) (1.0-6.0) % Eosinophils % (Manual) (0.0-3.0) % Basophils % (Manual) (0.0-1.0) % Platelet Evaluation (NORMAL) Polychromasia Hypochromasia Poikilocytosis (manual Anisocytosis (manual) Microcytosis (manual) Ovalocytes Schistocytes PT (9.4-12.5) SECONDS INR APTT (26.9-38.3) Seconds Fibrinogen (200-400) mg/dl Fibrin Degrad Products (< 10 ug/mL) pCO2 (35-45) mm/Hg pO2 (80-100) mm/Hg HCO3 (21-28) mmol/L ABG pH (7.35-7.45) ABG Total CO2 (22-28) mmol.L ABG O2 Saturation (95-98) % ABG O2 Content (15-23) ML/dl ABG Base Excess (-2.0-3.0) mmol/L ABG Hemoglobin (11.7-17.4) g/dL ABG Carboxyhemoglobin (0.5-1.5) % POC ABG HHb (Measured) (0-5) % ABG Methemoglobin (0.0-3.0) % ABG O2 Capacity (16-24) mL/dl Hgb O2 Saturation (95.0-98.0) % FiO2 % Crit Value Called To Crit Value Called By Blood Gas Notified Time Sodium 141 (132-148) mmol/L Potassium 3.5 L (3.6-5.0) mmol/L Chloride 115 H (98-107) mmol/L Carbon Dioxide 22 (21-33) mmol/L Anion Gap 8 L (10-20) BUN 17 (7-21) mg/dL Creatinine 1.3 H (0.7-1.2) mg/dl Est GFR ( Amer) 52 Est GFR (Non-Af Amer) 43 Random Glucose 93 (70-110) mg/dL Hemoglobin A1c 6.3 (4.2-6.5) % Calcium 7.9 L (8.4-10.5) mg/dL Phosphorus 3.7 (2.5-4.5) mg/dL Magnesium 1.8 (1.7-2.2) mg/dL Total Bilirubin 0.9 (0.2-1.3) mg/dL AST 30 (14-36) U/L ALT 47 (7-56) U/L Alkaline Phosphatase 82 (38-126) U/L Total Protein 5.6 L (5.8-8.3) g/dL Albumin 2.6 L (3.0-4.8) g/dL Globulin 2.9 gm/dL Albumin/Globulin Ratio 0.9 L (1.1-1.8) Triglycerides 92 (35-160) mg/dL Cholesterol 101 L (130-200) mg/dL LDL Cholesterol Direct 34 (0-129) mg/dL HDL Cholesterol 29 (29-60) mg/dL Procalcitonin (0.19-0.49) NG/ML TSH 3rd Generation 0.64 (0.46-4.68) mIU/mL Ur L.pneumophila Ag (NEGATIVE) Blood Type Antibody Screen Crossmatch BBK History Checked 07/17/18 07/17/18 07/16/18 Range/Units 07:50 03:15 19:00 WBC 0.9 L* D (4.5-11.0) 10^3/uL RBC 2.18 L (3.5-6.1) 10^6/uL Hgb 7.0 L D (12.0-16.0) g/dL Hct 21.4 L (36.0-48.0) % MCV 98.2 (80.0-105.0) fl MCH 32.1 (25.0-35.0) pg MCHC 32.7 (31.0-37.0) g/dl RDW 16.6 H (11.5-14.5) % Plt Count 48 L* (120.0-450.0) 10^3/uL Manual Plt Count (120-450) K/mm3 MPV 8.7 (7.0-11.0) fl Neut % (Auto) 37.3 L (50.0-68.0) % Lymph % (Auto) 40.4 H (22.0-35.0) % [place] % (Auto) 22.3 H (1.0-6.0) % Eos % (Auto) 0.0 L (1.5-5.0) % Baso % (Auto) 0.0 (0.0-3.0) % Lymph # (Auto) 0.4 L (1.2-3.4) [place] # (Auto) 0.2 (0.1-0.6) Eos # (Auto) 0.0 (0.0-0.7) Baso # (Auto) 0.00 (0.0-2.0) K/mm3 Absolute Neuts (auto) 0.35 L (1.4-6.5) Neutrophils % (Manual) 9 L (50.0-70.0) % Lymphocytes % (Manual) 49 H (22.0-35.0) % Monocytes % (Manual) 17 H (1.0-6.0) % Eosinophils % (Manual) 24 H (0.0-3.0) % Basophils % (Manual) 1 (0.0-1.0) % Platelet Evaluation Low (NORMAL) Polychromasia Slight Hypochromasia 1+ Poikilocytosis (manual Slight Anisocytosis (manual) Slight Microcytosis (manual) Slight Ovalocytes Slight Schistocytes Slight PT (9.4-12.5) SECONDS INR APTT (26.9-38.3) Seconds Fibrinogen (200-400) mg/dl Fibrin Degrad Products (< 10 ug/mL) pCO2 (35-45) mm/Hg pO2 (80-100) mm/Hg HCO3 (21-28) mmol/L ABG pH (7.35-7.45) ABG Total CO2 (22-28) mmol.L ABG O2 Saturation (95-98) % ABG O2 Content (15-23) ML/dl ABG Base Excess (-2.0-3.0) mmol/L ABG Hemoglobin (11.7-17.4) g/dL ABG Carboxyhemoglobin (0.5-1.5) % POC ABG HHb (Measured) (0-5) % ABG Methemoglobin (0.0-3.0) % ABG O2 Capacity (16-24) mL/dl Hgb O2 Saturation (95.0-98.0) % FiO2 % Crit Value Called To Crit Value Called By Blood Gas Notified Time Sodium (132-148) mmol/L Potassium (3.6-5.0) mmol/L Chloride (98-107) mmol/L Carbon Dioxide (21-33) mmol/L Anion Gap (10-20) BUN (7-21) mg/dL Creatinine (0.7-1.2) mg/dl Est GFR ( Amer) Est GFR (Non-Af Amer) Random Glucose (70-110) mg/dL Hemoglobin A1c (4.2-6.5) % Calcium (8.4-10.5) mg/dL Phosphorus (2.5-4.5) mg/dL Magnesium (1.7-2.2) mg/dL Total Bilirubin (0.2-1.3) mg/dL AST (14-36) U/L ALT (7-56) U/L Alkaline Phosphatase (38-126) U/L Total Protein (5.8-8.3) g/dL Albumin (3.0-4.8) g/dL Globulin gm/dL Albumin/Globulin Ratio (1.1-1.8) Triglycerides (35-160) mg/dL Cholesterol (130-200) mg/dL LDL Cholesterol Direct (0-129) mg/dL HDL Cholesterol (29-60) mg/dL Procalcitonin 0.52 H (0.19-0.49) NG/ML TSH 3rd Generation (0.46-4.68) mIU/mL Ur L.pneumophila Ag Negative (NEGATIVE) Blood Type Antibody Screen Crossmatch BBK History Checked Laboratory Results - last 24 hr 07/16/18 07/17/18 07/17/18 19:00 03:15 07:50 WBC 0.9 L* D RBC 2.18 L Hgb 7.0 L D Hct 21.4 L MCV 98.2 MCH 32.1 MCHC 32.7 RDW 16.6 H Plt Count 48 L* Manual Plt Count MPV 8.7 Neut % (Auto) 37.3 L Lymph % (Auto) 40.[address] [place] % (Auto) 22.3 H Eos % (Auto) 0.0 L Baso % (Auto) 0.0 Lymph # (Auto) 0.[address] [place] # (Auto) 0.2 Eos # (Auto) 0.0 Baso # (Auto) 0.00 Absolute Neuts (auto) 0.35 L Neutrophils % (Manual) 9 L Lymphocytes % (Manual) 49 H Monocytes % (Manual) 17 H Eosinophils % (Manual) 24 H Basophils % (Manual) 1 Platelet Evaluation Low Polychromasia Slight Hypochromasia 1+ Poikilocytosis (manual Slight Anisocytosis (manual) Slight Microcytosis (manual) Slight Ovalocytes Slight Schistocytes Slight PT INR APTT Fibrinogen Fibrin Degrad Products pCO2 pO2 HCO3 ABG pH ABG Total CO2 ABG O2 Saturation ABG O2 Content ABG Base Excess ABG Hemoglobin ABG Carboxyhemoglobin POC ABG HHb (Measured) ABG Methemoglobin ABG O2 Capacity Hgb O2 Saturation FiO2 Crit Value Called To Crit Value Called By Blood Gas Notified Time Sodium Potassium Chloride Carbon Dioxide Anion Gap BUN Creatinine Est GFR ( Amer) Est GFR (Non-Af Amer) Random Glucose Hemoglobin A1c Calcium Phosphorus Magnesium Total Bilirubin AST ALT Alkaline Phosphatase Total Protein Albumin Globulin Albumin/Globulin Ratio Triglycerides Cholesterol LDL Cholesterol Direct HDL Cholesterol Procalcitonin 0.52 H TSH 3rd Generation Ur L.pneumophila Ag Negative Blood Type Antibody Screen Crossmatch BBK History Checked 07/17/18 07/17/18 07/17/18 07:50 07:50 08:00 WBC RBC Hgb Hct MCV MCH MCHC RDW Plt Count Manual Plt Count MPV Neut % (Auto) Lymph % (Auto) [place] % (Auto) Eos % (Auto) Baso % (Auto) Lymph # (Auto) [place] # (Auto) Eos # (Auto) Baso # (Auto) Absolute Neuts (auto) Neutrophils % (Manual) Lymphocytes % (Manual) Monocytes % (Manual) Eosinophils % (Manual) Basophils % (Manual) Platelet Evaluation Polychromasia Hypochromasia Poikilocytosis (manual Anisocytosis (manual) Microcytosis (manual) Ovalocytes Schistocytes PT INR APTT Fibrinogen Fibrin Degrad Products pCO2 pO2 HCO3 ABG pH ABG Total CO2 ABG O2 Saturation ABG O2 Content ABG Base Excess ABG Hemoglobin ABG Carboxyhemoglobin POC ABG HHb (Measured) ABG Methemoglobin ABG O2 Capacity Hgb O2 Saturation FiO2 Crit Value Called To Crit Value Called By Blood Gas Notified Time Sodium 141 Potassium 3.5 L Chloride 115 H Carbon Dioxide 22 Anion Gap 8 L BUN 17 Creatinine 1.3 H Est GFR ( Amer) 52 Est GFR (Non-Af Amer) 43 Random Glucose 93 Hemoglobin A1c 6.3 Calcium 7.9 L Phosphorus 3.7 Magnesium 1.8 Total Bilirubin 0.9 AST 30 ALT 47 Alkaline Phosphatase 82 Total Protein 5.6 L Albumin 2.6 L Globulin 2.9 Albumin/Globulin Ratio 0.9 L Triglycerides 92 Cholesterol 101 L LDL Cholesterol Direct 34 HDL Cholesterol 29 Procalcitonin TSH 3rd Generation 0.64 Ur L.pneumophila Ag Blood Type Antibody Screen Crossmatch BBK History Checked 07/17/18 07/17/18 07/17/18 09:16 11:50 14:20 WBC RBC Hgb Hct MCV MCH MCHC RDW Plt Count Manual Plt Count 50 L MPV Neut % (Auto) Lymph % (Auto) [place] % (Auto) Eos % (Auto) Baso % (Auto) Lymph # (Auto) [place] # (Auto) Eos # (Auto) Baso # (Auto) Absolute Neuts (auto) Neutrophils % (Manual) Lymphocytes % (Manual) Monocytes % (Manual) Eosinophils % (Manual) Basophils % (Manual) Platelet Evaluation Polychromasia Hypochromasia Poikilocytosis (manual Anisocytosis (manual) Microcytosis (manual) Ovalocytes Schistocytes PT INR APTT Fibrinogen 628 H* Fibrin Degrad Products pCO2 pO2 HCO3 ABG pH ABG Total CO2 ABG O2 Saturation ABG O2 Content ABG Base Excess ABG Hemoglobin ABG Carboxyhemoglobin POC ABG HHb (Measured) ABG Methemoglobin ABG O2 Capacity Hgb O2 Saturation FiO2 Crit Value Called To Crit Value Called By Blood Gas Notified Time Sodium Potassium Chloride Carbon Dioxide Anion Gap BUN Creatinine Est GFR ( Amer) Est GFR (Non-Af Amer) Random Glucose Hemoglobin A1c Calcium Phosphorus Magnesium Total Bilirubin AST ALT Alkaline Phosphatase Total Protein Albumin Globulin Albumin/Globulin Ratio Triglycerides Cholesterol LDL Cholesterol Direct HDL Cholesterol Procalcitonin TSH 3rd Generation Ur L.pneumophila Ag Blood Type B POSITIVE Antibody Screen Negative Crossmatch See Detail BBK History Checked Patient has bt 07/17/18 07/17/18 07/18/18 14:20 14:20 02:35 WBC RBC Hgb 9.3 L D Hct 27.9 L MCV MCH MCHC RDW Plt Count Manual Plt Count MPV Neut % (Auto) Lymph % (Auto) [place] % (Auto) Eos % (Auto) Baso % (Auto) Lymph # (Auto) [place] # (Auto) Eos # (Auto) Baso # (Auto) Absolute Neuts (auto) Neutrophils % (Manual) Lymphocytes % (Manual) Monocytes % (Manual) Eosinophils % (Manual) Basophils % (Manual) Platelet Evaluation Polychromasia Hypochromasia Poikilocytosis (manual Anisocytosis (manual) Microcytosis (manual) Ovalocytes Schistocytes PT 19.8 H INR 1.78 APTT 27.6 Fibrinogen Fibrin Degrad Products >10 <40 ug/ml pCO2 pO2 HCO3 ABG pH ABG Total CO2 ABG O2 Saturation ABG O2 Content ABG Base Excess ABG Hemoglobin ABG Carboxyhemoglobin POC ABG HHb (Measured) ABG Methemoglobin ABG O2 Capacity Hgb O2 Saturation FiO2 Crit Value Called To Crit Value Called By Blood Gas Notified Time Sodium Potassium Chloride Carbon Dioxide Anion Gap BUN Creatinine Est GFR ( Amer) Est GFR (Non-Af Amer) Random Glucose Hemoglobin A1c Calcium Phosphorus Magnesium Total Bilirubin AST ALT Alkaline Phosphatase Total Protein Albumin Globulin Albumin/Globulin Ratio Triglycerides Cholesterol LDL Cholesterol Direct HDL Cholesterol Procalcitonin TSH 3rd Generation Ur L.pneumophila Ag Blood Type Antibody Screen Crossmatch BBK History Checked 07/18/18 07/18/18 07/18/18 05:00 05:05 05:05 WBC 1.1 L* D RBC 3.08 L Hgb 9.6 L Hct 28.2 L MCV 91.6 D MCH 31.2 MCHC 34.0 RDW 17.6 H Plt Count 38 L* Manual Plt Count MPV 9.1 Neut % (Auto) 24.6 L Lymph % (Auto) 37.[address] [place] % (Auto) 37.7 H Eos % (Auto) 0.0 L Baso % (Auto) 0.0 Lymph # (Auto) 0.[address] [place] # (Auto) 0.4 Eos # (Auto) 0.0 Baso # (Auto) 0.00 Absolute Neuts (auto) 0.28 L Neutrophils % (Manual) Lymphocytes % (Manual) Monocytes % (Manual) Eosinophils % (Manual) Basophils % (Manual) Platelet Evaluation Polychromasia Hypochromasia Poikilocytosis (manual Anisocytosis (manual) Microcytosis (manual) Ovalocytes Schistocytes PT INR APTT Fibrinogen Fibrin Degrad Products pCO2 32 L pO2 43.0 L* HCO3 19.8 L ABG pH 7.40 ABG Total CO2 20.8 L ABG O2 Saturation 90.7 L ABG O2 Content 11.0 L ABG Base Excess -4.4 L ABG Hemoglobin 8.9 L ABG Carboxyhemoglobin 2.5 H POC ABG HHb (Measured) 9.0 H ABG Methemoglobin 1.0 ABG O2 Capacity 12.1 L Hgb O2 Saturation 87.5 L FiO2 36.0 Crit Value Called To Mireille israel rn Crit Value Called By [facility] [facility] Blood Gas Notified Time 615 Sodium 141 Potassium 4.2 Chloride 107 Carbon Dioxide 24 Anion Gap 14 BUN 23 H Creatinine 1.7 H Est GFR ( Amer) 38 Est GFR (Non-Af Amer) 31 Random Glucose 151 H Hemoglobin A1c Calcium 8.7 Phosphorus 4.1 Magnesium 1.9 Total Bilirubin 2.1 H AST 51 H D ALT 42 Alkaline Phosphatase 88 Total Protein 6.4 Albumin 3.3 Globulin 3.0 Albumin/Globulin Ratio 1.1 Triglycerides Cholesterol LDL Cholesterol Direct HDL Cholesterol Procalcitonin TSH 3rd Generation Ur L.pneumophila Ag Blood Type Antibody Screen Crossmatch BBK History Checked Radiology Impressions: Radiology Impressions Chest X-Ray 07/17/18 15:28 IMPRESSION: Bibasilar infiltrates, left greater than right. Probable small bilateral pleural effusion. Abdomen X-Ray 07/17/18 16:33 IMPRESSION: Nonspecific bowel gas pattern. No definite free air. Mild blunting of the costophrenic angles may reflect pleural effusions. Bibasilar atelectasis/infiltrates. Evidence of right sided catheter utilizing femoral approach terminating at approximately the level of L5 on the right. Critical Care Progress Note - Nutrition Nutrition: Nutrition Category Date Time Status Heart Healthy Diet [DIET] Diets 07/16/18 Dinner Active Assessment/Plan - Assessment and Plan (Free Text) Assessment: 53 y/o F with PMH of high grade myelodysplastic syndrome s/p chemotherapy 1 month prior, lung cancer s/p lobectomy, R breast mastectomy, COPD, endocarditis presenting with 102 F fevers, chills, tachycardia and pancytopenia. ICU consulted for tachycardia, fever, and neutropenia. Pt had femoral line placed 3/5 and levophed started. Pt had 2 units pRBC and 1 FFP and has responded appropriately to pRBC transfusion. Plan: Neuro: - AOx3 Cardio: Neutropenic septic shock likely 2/2 PNA: - Cont current abx reigmen as per ID - Pt placed on Levophed - Vasopressin started - PICC today - Pt started on albumin per cardio - Hold BP meds per cardio and given underlying shock - Ensure MAP >65 - Will cont to closely monitor Tachycardia: - Likely responsive to underlying sepsis - Pts HR is 119 - f/u Echo Heme: Pancytopenia 2/2 Accelerated MDS with recent chemo tx s/p 2 units pRBCs and 1 FFP: - H&H: 9.6/28.2, Platelets: 38 (45 manual) and WBC = 1.1, ANC= .28 - Heme/onc consulted, recs appreciated - Granix 300 started daily for 5 days - Coags, fibrinogen and fibrin split products - Pt responded appropriately to pRBC transfusion, will continue to monitor. Pulm: Neutropenic septic shock likely 2/2 PNA: - Chest CT: No evidence for PE. Bullous emphysema. Postoperative changes in right lung apex with focal consolidation possibly representing a pneumonia. Two nonspecific low-attenuation lesions in the left lobe of the liver. - Cont Abx as per ID - Procal elevated .52 - Flu (-) - Blood Cxs: (-) after 24 hours Hx of COPD: - Cont Xopenex TID - Solumedrol 40 IV q8 - Pulmicort BID - Acetylcystine BID - Ensure O2 sat >88 GI: - Protonix 40 IV - HHD Nephro: ZACKERY likely 2/2 Septic shock: - Pt on levophed, improving renal perfusion - Pt also started on vasopressin - Pt had positive fluid balance yesterday - Lasix given yesterday, may consider another dose today. - Keep pt euvolemic - Will cont to monitor Case seen and discussed with Dr. Juan Yoon, PGY1 <Nelson Martinez - Last Filed: 07/18/18 17:09> CCU Objective - Vital Signs / Intake & Output Vital Signs (Last 4 hours): Vital Signs BP 07/18/18 14:55 104/68 Intake and Output (Last 8hrs): Intake & Output 07/18/18 07/18/18 07/18/18 06:59 14:59 22:59 Intake Total 1637 0 200 Output Total 1500 Balance 137 0 200 Intake: IV 700 0 200 Right Femoral 450 Oral 300 Blood Product 637 Output: Urine 1500 Urine, Voided 1500 Other: # Bowel Movements 1 - Medications Active Medications: Active Medications Generic Name Dose Route Start Last Admin Trade Name Freq PRN Reason Stop Dose Admin Acetaminophen 650 mg 07/16/18 15:30 07/17/18 11:32 Tylenol 325mg Tab PO 650 mg Q6H PRN Administration Fever >100.4 F Acetylcysteine 4 ml 07/17/18 20:00 07/18/18 07:50 Acetylcysteine 20% IH 4 ml BIDRESP KAYLEIGH Administration Atenolol 25 mg 07/16/18 18:00 07/16/18 19:00 Tenormin PO 25 mg BID KAYLEIGH Administration Budesonide 0.5 mg 07/17/18 20:00 07/18/18 07:50 Pulmicort Respules IH 0.5 mg [id number] KAYLEIGH Administration Doxycycline Hyclate 100 mg 07/17/18 22:00 07/18/18 10:13 Doryx PO 07/22/18 22:01 Not Given Q12 KAYLEIGH Protocol NOREPINEPHRINE BIT/0.9 % NACL 4 mg in 250 mls @ 15 mls/hr 07/17/18 07:50 07/18/18 15:02 Levophed 4 Mg/ 250 Ml Ns Premixed IV 0 mcg/min .[id number] PRN 0 mls/hr TITRATE PER MD ORDER Titration Protocol 4 MCG/MIN Vasopressin 20 units/ Sodium 101 mls @ 9.09 mls/hr 07/18/18 10:00 07/18/18 14 :55 Chloride IV 9.09 mls/hr .[id number] KAYLEIGH Administration Protocol 0.03 U/MIN Dextrose/Sodium Chloride 1,000 mls @ 75 mls/hr 07/18/18 10:00 Dextrose 5%/0.9% Ns 1000 Ml IV .[id number] KAYLEIGH Meropenem 1 gm in 50 mls @ 100 mls/hr 07/18/18 18:00 Merrem Iv 1 Gm Premix IVPB 07/24/18 22:01 0600,1800 KAYLEIGH Protocol Levalbuterol HCl 0.63 mg 07/17/18 14:00 07/18/18 14:03 Xopenex IH 0.63 mg TIDRESP KAYLEIGH Administration Methylprednisolone 40 mg 07/17/18 14:00 07/18/18 14:33 Solu-Medrol IVP 40 mg Q8 KAYLEIGH Administration Nicotine 1 patch 07/17/18 15:30 07/18/18 09:09 Nicoderm Cq TD 1 patch DAILY KAYLEIGH Administration Ondansetron HCl 6 mg 07/18/18 12:09 07/18/18 14:34 Zofran Inj IVP 6 mg Q6H PRN Administration Nausea/Vomiting Oxycodone HCl 5 mg 07/16/18 21:38 07/17/18 16:54 Oxycodone Immediate Release Tab PO 5 mg Q6H PRN Administration Pain, severe (8-10) Pantoprazole Sodium 40 mg 07/18/18 07:30 07/18/18 09:09 Protonix Ec Tab PO 40 mg ACB KAYLEIGH Administration - Patient Studies Lab Studies: Microbiology Studies 07/16/18 10:10 Blood Culture - Preliminary Blood NO GROWTH AFTER 48 HOURS 07/16/18 09:30 Blood Culture - Preliminary Blood NO GROWTH AFTER 48 HOURS 07/17/18 01:01 Gram Stain - Final Sputum Sputum Culture - Preliminary NORMAL ORAL SARAH 07/16/18 12:00 Urine Culture - Final Urine Random No Growth (<1,000 CFU/ML) 07/16/18 20:30 MRSA Culture (Admit) - Final Naris MRSA NOT DETECTED Lab Studies 07/18/18 07/18/18 07/18/18 Range/Units 05:05 05:05 05:05 WBC 1.1 L* D (4.5-11.0) 10^3/uL RBC 3.08 L (3.5-6.1) 10^6/uL Hgb 9.6 L (12.0-16.0) g/dL Hct 28.2 L (36.0-48.0) % MCV 91.6 D (80.0-105.0) fl MCH 31.2 (25.0-35.0) pg MCHC 34.0 (31.0-37.0) g/dl RDW 17.6 H (11.5-14.5) % Plt Count 38 L* (120.0-450.0) 10^3/uL Manual Plt Count 45 L* (120-450) K/mm3 MPV 9.1 (7.0-11.0) fl Neut % (Auto) 24.6 L (50.0-68.0) % Lymph % (Auto) 37.7 H (22.0-35.0) % [place] % (Auto) 37.7 H (1.0-6.0) % Eos % (Auto) 0.0 L (1.5-5.0) % Baso % (Auto) 0.0 (0.0-3.0) % Lymph # (Auto) 0.4 L (1.2-3.4) [place] # (Auto) 0.4 (0.1-0.6) Eos # (Auto) 0.0 (0.0-0.7) Baso # (Auto) 0.00 (0.0-2.0) K/mm3 Absolute Neuts (auto) 0.28 L (1.4-6.5) pCO2 (35-45) mm/Hg pO2 (80-100) mm/Hg HCO3 (21-28) mmol/L ABG pH (7.35-7.45) ABG Total CO2 (22-28) mmol.L ABG O2 Saturation (95-98) % ABG O2 Content (15-23) ML/dl ABG Base Excess (-2.0-3.0) mmol/L ABG Hemoglobin (11.7-17.4) g/dL ABG Carboxyhemoglobin (0.5-1.5) % POC ABG HHb (Measured) (0-5) % ABG Methemoglobin (0.0-3.0) % ABG O2 Capacity (16-24) mL/dl Hgb O2 Saturation (95.0-98.0) % FiO2 % Crit Value Called To Crit Value Called By Blood Gas Notified Time Sodium 141 (132-148) mmol/L Potassium 4.2 (3.6-5.0) mmol/L Chloride 107 (98-107) mmol/L Carbon Dioxide 24 (21-33) mmol/L Anion Gap 14 (10-20) BUN 23 H (7-21) mg/dL Creatinine 1.7 H (0.7-1.2) mg/dl Est GFR ( Amer) 38 Est GFR (Non-Af Amer) 31 Random Glucose 151 H (70-110) mg/dL Calcium 8.7 (8.4-10.5) mg/dL Phosphorus 4.1 (2.5-4.5) mg/dL Magnesium 1.9 (1.7-2.2) mg/dL Total Bilirubin 2.1 H (0.2-1.3) mg/dL AST 51 H D (14-36) U/L ALT 42 (7-56) U/L Alkaline Phosphatase 88 (38-126) U/L Total Protein 6.4 (5.8-8.3) g/dL Albumin 3.3 (3.0-4.8) g/dL Globulin 3.0 gm/dL Albumin/Globulin Ratio 1.1 (1.1-1.8) Blood Type Antibody Screen Crossmatch BBK History Checked 07/18/18 07/18/18 07/17/18 Range/Units 05:00 02:35 11:50 WBC (4.5-11.0) 10^3/uL RBC (3.5-6.1) 10^6/uL Hgb 9.3 L D (12.0-16.0) g/dL Hct 27.9 L (36.0-48.0) % MCV (80.0-105.0) fl MCH (25.0-35.0) pg MCHC (31.0-37.0) g/dl RDW (11.5-14.5) % Plt Count (120.0-450.0) 10^3/uL Manual Plt Count (120-450) K/mm3 MPV (7.0-11.0) fl Neut % (Auto) (50.0-68.0) % Lymph % (Auto) (22.0-35.0) % [place] % (Auto) (1.0-6.0) % Eos % (Auto) (1.5-5.0) % Baso % (Auto) (0.0-3.0) % Lymph # (Auto) (1.2-3.4) [place] # (Auto) (0.1-0.6) Eos # (Auto) (0.0-0.7) Baso # (Auto) (0.0-2.0) K/mm3 Absolute Neuts (auto) (1.4-6.5) pCO2 32 L (35-45) mm/Hg pO2 43.0 L* (80-100) mm/Hg HCO3 19.8 L (21-28) mmol/L ABG pH 7.40 (7.35-7.45) ABG Total CO2 20.8 L (22-28) mmol.L ABG O2 Saturation 90.7 L (95-98) % ABG O2 Content 11.0 L (15-23) ML/dl ABG Base Excess -4.4 L (-2.0-3.0) mmol/L ABG Hemoglobin 8.9 L (11.7-17.4) g/dL ABG Carboxyhemoglobin 2.5 H (0.5-1.5) % POC ABG HHb (Measured) 9.0 H (0-5) % ABG Methemoglobin 1.0 (0.0-3.0) % ABG O2 Capacity 12.1 L (16-24) mL/dl Hgb O2 Saturation 87.5 L (95.0-98.0) % FiO2 36.0 % Crit Value Called To Mireille israel rn Crit Value Called By [facility] Blood Gas Notified Time 615 Sodium (132-148) mmol/L Potassium (3.6-5.0) mmol/L Chloride (98-107) mmol/L Carbon Dioxide (21-33) mmol/L Anion Gap (10-20) BUN (7-21) mg/dL Creatinine (0.7-1.2) mg/dl Est GFR ( Amer) Est GFR (Non-Af Amer) Random Glucose (70-110) mg/dL Calcium (8.4-10.5) mg/dL Phosphorus (2.5-4.5) mg/dL Magnesium (1.7-2.2) mg/dL Total Bilirubin (0.2-1.3) mg/dL AST (14-36) U/L ALT (7-56) U/L Alkaline Phosphatase (38-126) U/L Total Protein (5.8-8.3) g/dL Albumin (3.0-4.8) g/dL Globulin gm/dL Albumin/Globulin Ratio (1.1-1.8) Blood Type B POSITIVE Antibody Screen Negative Crossmatch See Detail BBK History Checked Patient has bt Laboratory Results - last 24 hr 07/17/18 07/18/18 07/18/18 11:50 02:35 05:00 WBC RBC Hgb 9.3 L D Hct 27.9 L MCV MCH MCHC RDW Plt Count Manual Plt Count MPV Neut % (Auto) Lymph % (Auto) [place] % (Auto) Eos % (Auto) Baso % (Auto) Lymph # (Auto) [place] # (Auto) Eos # (Auto) Baso # (Auto) Absolute Neuts (auto) pCO2 32 L pO2 43.0 L* HCO3 19.8 L ABG pH 7.40 ABG Total CO2 20.8 L ABG O2 Saturation 90.7 L ABG O2 Content 11.0 L ABG Base Excess -4.4 L ABG Hemoglobin 8.9 L ABG Carboxyhemoglobin 2.5 H POC ABG HHb (Measured) 9.0 H ABG Methemoglobin 1.0 ABG O2 Capacity 12.1 L Hgb O2 Saturation 87.5 L FiO2 36.0 Crit Value Called To Mireille israel rn Crit Value Called By [facility] Blood Gas Notified Time 615 Sodium Potassium Chloride Carbon Dioxide Anion Gap BUN Creatinine Est GFR ( Amer) Est GFR (Non-Af Amer) Random Glucose Calcium Phosphorus Magnesium Total Bilirubin AST ALT Alkaline Phosphatase Total Protein Albumin Globulin Albumin/Globulin Ratio Blood Type B POSITIVE Antibody Screen Negative Crossmatch See Detail BBK History Checked Patient has bt 07/18/18 07/18/18 07/18/18 05:05 05:05 05:05 WBC 1.1 L* D RBC 3.08 L Hgb 9.6 L Hct 28.2 L MCV 91.6 D MCH 31.2 MCHC 34.0 RDW 17.6 H Plt Count 38 L* Manual Plt Count 45 L* MPV 9.1 Neut % (Auto) 24.6 L Lymph % (Auto) 37.[address] % (Auto) 37.7 H Eos % (Auto) 0.0 L Baso % (Auto) 0.0 Lymph # (Auto) 0.[address] [place] # (Auto) 0.4 Eos # (Auto) 0.0 Baso # (Auto) 0.00 Absolute Neuts (auto) 0.28 L pCO2 pO2 HCO3 ABG pH ABG Total CO2 ABG O2 Saturation ABG O2 Content ABG Base Excess ABG Hemoglobin ABG Carboxyhemoglobin POC ABG HHb (Measured) ABG Methemoglobin ABG O2 Capacity Hgb O2 Saturation FiO2 Crit Value Called To Crit Value Called By Blood Gas Notified Time Sodium 141 Potassium 4.2 Chloride 107 Carbon Dioxide 24 Anion Gap 14 BUN 23 H Creatinine 1.7 H Est GFR ( Amer) 38 Est GFR (Non-Af Amer) 31 Random Glucose 151 H Calcium 8.7 Phosphorus 4.1 Magnesium 1.9 Total Bilirubin 2.1 H AST 51 H D ALT 42 Alkaline Phosphatase 88 Total Protein 6.4 Albumin 3.3 Globulin 3.0 Albumin/Globulin Ratio 1.1 Blood Type Antibody Screen Crossmatch BBK History Checked Radiology Impressions: Radiology Impressions Abdomen X-Ray 07/17/18 16:33 IMPRESSION: Nonspecific bowel gas pattern. No definite free air. Mild blunting of the costophrenic angles may reflect pleural effusions. Bibasilar atelectasis/infiltrates. Evidence of right sided catheter utilizing femoral approach terminating at approximately the level of L5 on the right. Chest X-Ray 07/18/18 07:00 IMPRESSION: No significant change in bilateral infiltrates and small left effusion Critical Care Progress Note - Nutrition Nutrition: Nutrition Category Date Time Status Heart Healthy Diet [DIET] Diets 07/16/18 Dinner Active Addendum Addendum: 07/18/18 17:08 MICU Attending Addendum Patient seen and examined discussed with housestaff on rounds Agree with above note with following additions/exceptions: 53F w/ high grade MDS s/p chemotherapy 1 month prior, lung cancer s/p lobectomy, R breast mastectomy, COPD, endocarditis admitted for neuotrpenic septic shock Cont broad spectrum abx awaitng cultutres Levophed for map > 65 change TLC today f/u hem recs stop fluids given pulm edema Follow ZACKERY and strict I/O CXR also shows pulm edema which wasnt present on CT, will consider Lasix FULL CODE Rest of care as mentioned in above resident note Nelson Martinez MD MICU Attending
[2018-07-18] MEDS: Pantoprazole 40 mg EC Tab PO SCH (09:09)
--- NOTE | 2018-07-18 09:24 | RAD ---
Date of service: 07/18/2018 HISTORY: rule out infiltrate COMPARISON: 07/17/2018 FINDINGS: LUNGS: No significant change in bilateral infiltrates PLEURA: Small left effusion CARDIOVASCULAR: No aortic atherosclerotic calcification present. Mild cardiomegaly no pulmonary vascular congestion. OSSEOUS STRUCTURES: No significant abnormalities. VISUALIZED UPPER ABDOMEN: Normal. OTHER FINDINGS: None. IMPRESSION: No significant change in bilateral infiltrates and small left effusion
--- NOTE | 2018-07-18 10:42 | CP.PCM.PCO ---
Assessment & Plan - Assessment and Plan (Free Text) Assessment: NEURO COMMUNICATION NOTE: WEAKNESS SEC TO SEPTIC SHOCK , PANCYTOPENIA SUPPER IMPOSED UNDERLYING CHRONIC MEDICAL CONDITIONS. KEEP MONITOR ELECTROLYTES. BROAD SPECTRUM ANTIBIOTICS KEEP BP BTW 120-120 SYSTOLIC AND 70-80 DIASTOLIC PT EVAL. NEUTROPENIC PRECAUTIONS. THANKS KEVIN Sawyer MD
[2018-07-18] MEDS ORDERED: DiphenhydrAMINE 50 mg/ml Inj IVP STA (12:10)
--- NOTE | 2018-07-18 12:17 | PN ---
DATE: 07/18/2018 SUBJECTIVE: The patient is in bed in no acute distress, was seen earlier today in [facility], bed 7. She is awake and alert and responsive. Her temperature is now normal. PHYSICAL EXAMINATION: VITAL SIGNS: Temperature is 98, heart rate of 102, blood pressure is 107/60, respiratory rate of 18. HEENT: Unremarkable. NECK: Supple. LUNGS: Have decreased breath sounds. HEART: Normal S1 and S2. ABDOMEN: Soft. LABORATORY DATA: Reveals the patient's white count is 1.1 with absolute neutrophil count of 280. The patient has a hemoglobin of 9, platelets of 38; and the chemistries reveals a creatinine is 1.7 with a procalcitonin of 0.52. Urinalysis is noted. Serology, urine for Legionella is negative. Influenza is negative. ASSESSMENT AND PLAN: This is a 53-year-old female was admitted with septic shock, healthcare-associated pneumonia, neutropenic febrile patient, on pressors with acute kidney injury, now with cultures negative, urine blood culture, methicillin resistant staphylococcus aureus screen is negative, on meropenem and doxycycline. Overall improving. The patient is on Levophed, Solu-Cortef was given at once. Terrance Juan MD
--- NOTE | 2018-07-18 14:01 | PN ---
DATE: 07/18/2018 REASON FOR CONSULTATION AND FOLLOWUP: Chest pain, cough, fever, tachycardia, hypotension, possibly neutropenic sepsis. SUBJECTIVE: The patient denies any chest pain, but feels still tenderness in front of the chest. OBJECTIVE: GENERAL: Not in apparent distress, started coughing. VITAL SIGNS: Temperature afebrile, heart rate 102, blood pressure 107/69. HEENT: PERRLA. Extraocular muscles intact. NECK: Supple. No carotid bruits or thyromegaly. CHEST: Clear to auscultation. HEART: S1, S2. Regular. ABDOMEN: Soft. EXTREMITIES: Clubbing, cyanosis negative. LABORATORY DATA: Blood workup as follows: WBC 1.1, hemoglobin 9.6, hematocrit 28, platelet count 38. Sodium 141, potassium 4.2, chloride 107, carbon dioxide 24, anion gap of 14, BUN 23, creatinine 1.7. 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 WBC 1.1, pancytopenia, thrombocytopenia and anemia, cough and possible pneumonia, tachycardia, low-grade fever. RECOMMENDATIONS: Broad-spectrum antibiotic as per ID. Continue low-dose beta kendra as blood pressure is tolerated. Continue gentle diuretics. If the patient becomes hypotensive, we will continue norepinephrine, treated. Chest pain is atypical, most likely secondary to musculoskeletal tenderness. Recent echo patient has yesterday done, 07/17/2018, to assess left ventricular function, that revealed ejection fraction 45 to 50%, trace aortic regurgitation, moderate mitral regurgitation, [id number] tricuspid regurgitation. RV systolic pressure 31, [id number] pulmonary insufficiency. No pericardial effusion or vegetation noted. So far, no evidence of acute myocardial infarction noted. Most likely, this chest pain is secondary to pneumonia as well as overlying musculoskeletal pain. Since the patient has thrombocytopenia and neutropenia, we will avoid NSAID. Continue analgesics. We will follow with you. Thank you Dr. Lara for providing us the opportunity in taking care of patient, Codi Pope. Solange Langley MD
--- NOTE | 2018-07-18 16:12 | PN ---
DATE: 07/18/2018 PULMONARY PROGRESS NOTE REFERRING PHYSICIAN: August Lara MD. SUBJECTIVE: The patient is seen, lying in bed. Daughter at bedside. The patient reports still having some periods of shortness of breath. No headache, rhinitis, cough, chest pain, abdominal pain, nausea, vomiting, diarrhea, leg pain or leg swelling reported. OBJECTIVE: GENERAL: No acute distress. VITAL SIGNS: Blood pressure 107/69, pulse 102, oxygen saturation 100% and temperature 98.8. HEENT: Moist mucous membrane. Mallampati score of 4. Crowded airway. NECK: Supple. No JVD. CHEST: Scattered rhonchi. CARDIOVASCULAR: S1 and S2. ABDOMEN: Soft and nontender. No distention. No organomegaly. EXTREMITIES: No bilateral lower extremity edema. NEUROLOGIC: Awake, alert and verbal. Follows commands. MEDICATIONS: Reviewed. Tylenol 650 mg every 6 hours p.r.n. fever greater than 100.4, Mucomyst 4 mL inhalation twice a day, atenolol 25 mg twice a day, Pulmicort 0.5 mg every 12 hours, doxycycline 100 mg every 12 hours, Xopenex 0.63 mg inhalation three times a day, meropenem 1 g twice a day, Solu-Medrol 40 mg every 8 hours, nicotine patch transdermal daily, Levophed 4 mg p.r.n., Zofran 6 mg every 6 hours p.r.n., oxycodone 5 mg every 6 hours p.r.n., Protonix 40 mg daily, vasopressin 20 units and sodium chloride 1000ml at 9.09 mL per hour. LABORATORY DATA: Reviewed. WBC 1.1, RBC 3.08, hemoglobin 9.6, hematocrit 28.2 and platelets 38. PCO2 of 32, PO2 of 43, HCO3 of 19.8, ABG 7.4 on FiO2 36. Sodium 141, potassium 4.2, chloride 107, carbon dioxide 24, anion gap 14, albumin 23, creatinine 1.7, GFR 38, random glucose 151, calcium 8.7, phosphorous 4.1, magnesium 1.9, total bilirubin 2.1, AST 51, ALT 42, alkaline phosphatase 88, total protein 6.4, albumin 3.3, globulin 3.0 and albumin-globulin ratio 1.1. Blood cultures preliminary no growth after 48 hours. Sputum culture final normal oral gregorio. MRSA negative. Chest x-ray shows no significant change in bilateral infiltrates and small left effusion. IMPRESSION AND PLAN: Leukemia, active tobacco use, recently received chemotherapy, neutropenic precaution, sepsis, healthcare-associated pneumonia. The patient is currently on vasopressors. Anemia, asthma, chronic obstructive pulmonary disease, history of lung cancer, history of breast cancer, presently on Levophed. Continue antibiotics as per Infectious Disease. Continue gastric prophylaxis. Continue sequential compression devices to bilateral lower extremities, deep venous thrombosis prophylaxis due to current anemia status. Continue inhaled bronchodilators. Continue steroid dosing. Echocardiogram showed ejection fraction 45% to 50%, moderate mitral regurgitation, trace aortic regurgitation, mild to moderate tricuspid regurgitation, right ventricular systolic pressure 31, trace to mild pulmonic valvular regurgitation. The patient with some cardiomyopathy, decreased left ventricular function. The patient is also status post blood transfusions yesterday. Legionella was negative. Procalcitonin was 0.52. The patient's ABG's drawn this morning showed PO2 of 43, suspect it may have been venous blood as patient at bedside has oxygen saturation was 100% NC. We will repeat ABG, CBC, CMP, chest x-ray in the morning. Critical care time spent more than 35 minutes. This patient was seen and examined with Dr. Maurer. Discussed assessment and plan as described above. This patient was seen and examined by Henry Marquez, nurse practitioner. Discussed assessment and plan as described above. Thank you for this consult and we will follow with you. Henry Marquez APN Solange Maurer MD JONAH
[2018-07-18] MEDS: Dextrose 5%/0.9% NS 1,000 ML IV SCH (18:14)
--- NOTE | 2018-07-18 20:56 | PN ---
DATE: 07/18/2018 SUBJECTIVE: Patient is in ICU. She is alert, awake, oriented x3. Seems less coughing than before and less respiratory distress. Her temperature seems better. PHYSICAL EXAMINATION: VITAL SIGNS: Last temperature for this patient was 98.8, heart rate 111, blood pressure 105/70, respiration 23, saturating 100% on 2 liters nasal cannula. HEAD AND NECK: Normal. No JVD and no thyromegaly. CHEST: Clear bilaterally. CARDIAC: First sound and second sound normal. No murmur, rub or gallop. ABDOMEN: Soft and nontender. EXTREMITIES: No edema. NEUROLOGIC: Normal. LABORATORY DATA: Her laboratory studies done, which shows white count of 11.1, hemoglobin 9.6, hematocrit 28.2, and platelets 38 and on repeat is 45. Chemistry; sodium 141, potassium 4.2, chloride 107, bicarb 24, BUN 23, creatinine 1.7, and magnesium 1.9. Liver function test seems normal. IMPRESSION AND PLAN: 1. Patient has neutropenic sepsis, continue IV antibiotics. She is getting Merrem IV as per Infectious Disease consult, Dr. Juan and she was getting vancomycin before and right now is not. Now, she is getting doxycycline instead, plus patient getting IV fluids for blood pressure support and vasopressin and she is getting norepinephrine down to 2 mcg. 2. Pancytopenia. Hematology consulting the case. No active bleeding. Continue antibiotics. 3. Chronic obstructive pulmonary disease and pneumonia. Continue intravenous antibiotic as above. Merrem plus doxycycline seems better than before, is still critically sick, but we are decreasing the Levophed dosage, seems better, less fever and less vasopressor support. Plan is to continue current therapy, current medication Mucomyst, IV fluid at 175 mL per hour and chest x-ray shows congestion and we decreased IV fluids to 75 mL per hour, doxycycline 100 mg b.i.d., norepinephrine 2 mcg, Merrem 1 g IV every 8 hours, Nicoderm patch, oxycodone p.r.n., Protonix 40 mg, Pulmicort, Solu-Medrol 40 mg IV every 8 hours, and Tenormin is on hold. Patient is getting Tylenol, vasopressin and she is getting also Xopenex q.i.d. and Zofran p.r.n. We will continue current regimen. Follow up with the consultants on the case and the vegetable cook on the case. Case was discussed with team work and we will follow up clinically. August Lara MD
[2018-07-19] MEDS: MethylPREDNISolone 40 mg Vial IVP SCH ×2 (06:20→21:23)
[2018-07-19] MEDS: Meropenem IV 1 gm in NS 1 GM/50 ML BAG IVPB SCH ×2 (06:20→17:14)
[2018-07-19 06:44] LABS: HEMOGLOBIN 8.8 g/dL (12.0-16.0); LYMPH # 0.6 (1.2-3.4); MEAN CELL VOLUME 89.2 fl (80.0-105.0); MEAN CORPUSCULAR HEMOGLOBIN 30.6 pg (25.0-35.0); MEAN CORPUSCULAR HGB CONC 34.2 g/dl (31.0-37.0); MONO # 0.6 (0.1-0.6); MONO % 35.4 % (1.0-6.0); RBC 2.88 10^6/uL (3.5-6.1); RED CELL DISTRIBUTION WIDTH 16.7 % (11.5-14.5)
[2018-07-19 07:14] LABS: ALB/GLOB RATIO 1.1 (1.1-1.8); ALBUMIN 3.1 g/dL (3.0-4.8)
[2018-07-19 07:17] LABS: PLATELET COUNT 17 10^3/uL (120.0-450.0); WHITE BLOOD COUNT 1.8 10^3/uL (4.5-11.0)
[2018-07-19] MEDS: Levalbuterol 0.63 MG/3 ML Inhal Soln UD IH SCH ×3 (07:29→20:00)
[2018-07-19] MEDS: Acetylcysteine 20% Inhal Soln (4ml) IH SCH ×2 (07:29→20:00)
[2018-07-19] MEDS: Budesonide 0.5 mg/2 ml Inhal Susp UD IH SCH ×2 (07:30→20:00)
--- NOTE | 2018-07-19 07:50 | RAD ---
Date of service: 07/19/2018 HISTORY: follow up infiltrate COMPARISON: Portable chest 07/18/2018 5:22 a.m.. FINDINGS: LUNGS: Telemetry leads obscure chest particularly at the right side. Left PICC inserted terminating at the right atrium. Consider retraction 2-3 cm followed by confirmation radiography. No interval change in bilateral infiltrates greater the left and right chest. PLEURA: Minimal left pleural effusion again evident. None is appreciated at the right. No pneumothorax bilaterally. CARDIOVASCULAR: No aortic atherosclerotic calcification present. Normal cardiac size. No pulmonary vascular congestion. OSSEOUS STRUCTURES: No significant abnormalities. VISUALIZED UPPER ABDOMEN: Normal. OTHER FINDINGS: None. IMPRESSION: Stable bilateral pulmonary infiltrates with left PICC inserted terminating at the right atrium. Retraction 2-3 cm followed by confirmation radiography is recommended.
[2018-07-19] MEDS: Dextrose 5%/0.9% NS 1,000 ML IV SCH ×2 (08:13→21:26)
[2018-07-19] MEDS: Pantoprazole 40 mg EC Tab PO SCH (08:13)
--- NOTE | 2018-07-19 08:36 | CP.CCUPN ---
<Claus Yoon - Last Filed: 07/19/18 11:48> CCU Subjective - Physician Review Subjective (Free Text): 07/19/18 09:51 Claus Yoon, PGY1 ICU Progress Note: Pt was seen and examined this AM at bedside. 3/5 pt was transfused 2 units pRBC and 1 unit FFP. At this time pt reports feeling SOB which is the same as yesterday and continues to admit to a cough which also has not improved. She admits to continued nausea, particularly with meals, but it has improved and the pt is attempting to eat again today. She otherwise denies any fevers, chills, palpitations, headache, abd pain, c/d or dysuria. CCU Objective - Vital Signs / Intake & Output Vital Signs (Last 4 hours): Vital Signs Pulse Resp BP Pulse Ox 07/19/18 06:40 102 H 28 H 07/19/18 06:30 102 H 30 H 07/19/18 06:24 103 H 31 H 07/19/18 06:20 103 H 21 07/19/18 06:12 102 H 33 H 07/19/18 06:08 101 H 29 H 07/19/18 06:00 101 H 36 H 126/64 100 07/19/18 05:50 101 H 35 H 98 07/19/18 05:40 100 H 28 H 100 07/19/18 05:35 99 H 07/19/18 05:30 100 H 26 H 100 07/19/18 05:20 99 H 24 100 07/19/18 05:10 99 H 27 H 99 07/19/18 05:00 100 H 31 H 107/72 98 07/19/18 04:50 100 H 27 H 100 07/19/18 04:40 99 H 27 H 100 Intake and Output (Last 8hrs): Intake & Output 07/18/18 07/19/18 07/19/18 22:59 06:59 14:59 Intake Total 950 1040 Output Total 450 100 Balance 500 940 Weight 130 lb Intake: IV 650 960 Left Hand 900 Right Femoral 450 60 Oral 100 80 Other 200 Output: Urine 450 100 Urine, Voided 450 100 Other: # Bowel Movements 3 2 - Physical Exam Head: Positive for: Atraumatic, Normocephalic Pupils: Positive for: PERRL Extroacular Muscles: Positive for: EOMI Conjunctiva: Positive for: Normal Mouth: Positive for: Moist Mucous Membranes Neck: Positive for: Normal Range of Motion Respiratory/Chest: Positive for: Decreased Breath Sounds. Negative for: Respi ratory Distress, Accessory Muscle Use, Wheezes, Rhonchi, Tachypneic Cardiovascular: Positive for: Regular Rate and Rhythm, Normal S1, S2. Negative for: Murmurs Abdomen: Positive for: Normal Bowel Sounds. Negative for: Tenderness, Distention, Rebound, Guarding Upper Extremity: Positive for: Normal ROM. Negative for: Edema Lower Extremity: Positive for: Normal Inspection, Normal ROM. Negative for: Edema Neurological: Positive for: GCS=15, CN II-XII Intact, Speech Normal, Motor Func Grossly Intact Skin: Positive for: Warm, Dry, Normal Color. Negative for: Rashes Psychiatric: Positive for: Alert, Oriented x 3, Normal Insight, Normal Concentration - Medications Active Medications: Active Medications Generic Name Dose Route Start Last Admin Trade Name Freq PRN Reason Stop Dose Admin Acetaminophen 650 mg 07/16/18 15:30 07/17/18 11:32 Tylenol 325mg Tab PO 650 mg Q6H PRN Administration Fever >100.4 F Acetylcysteine 4 ml 07/17/18 20:00 07/19/18 07:29 Acetylcysteine 20% IH 4 ml BIDRESP KAYLEIGH Administration Atenolol 25 mg 07/16/18 18:00 07/16/18 19:00 Tenormin PO 25 mg BID KAYLEIGH Administration Budesonide 0.5 mg 07/17/18 20:00 07/19/18 07:30 Pulmicort Respules IH 0.5 mg [id number] KAYLEIGH Administration Doxycycline Hyclate 100 mg 07/17/18 22:00 07/18/18 22:26 Doryx PO 07/22/18 22:01 100 mg Q12 KAYLEIGH Administration Protocol NOREPINEPHRINE BIT/0.9 % NACL 4 mg in 250 mls @ 15 mls/hr 07/17/18 07:50 07/18/18 15:02 Levophed 4 Mg/ 250 Ml Ns Premixed IV 0 mcg/min .[id number] PRN 0 mls/hr TITRATE PER MD ORDER Titration Protocol 4 MCG/MIN Vasopressin 20 units/ Sodium 101 mls @ 9.09 mls/hr 07/18/18 10:00 07/18/18 21:00 Chloride IV 9.09 mls/hr .[id number] KAYLEIGH Administration Protocol 0.03 U/MIN Dextrose/Sodium Chloride 1,000 mls @ 75 mls/hr 07/18/18 10:00 07/19/18 08:13 Dextrose 5%/0.9% Ns 1000 Ml IV 75 mls/hr .[id number] KAYLEIGH Administration Meropenem 1 gm in 50 mls @ 100 mls/hr 07/18/18 18:00 07/19/18 06:20 Merrem Iv 1 Gm Premix IVPB 07/24/18 22:01 100 mls/hr 0600,1800 KAYLEIGH Administration Protocol Levalbuterol HCl 0.63 mg 07/17/18 14:00 07/19/18 07:29 Xopenex IH 0.63 mg TIDRESP KAYLEIGH Administration Methylprednisolone 40 mg 07/17/18 14:00 07/19/18 06:20 Solu-Medrol IVP 40 mg Q8 KAYLEIGH Administration Nicotine 1 patch 07/17/18 15:30 07/18/18 09:09 Nicoderm Cq TD 1 patch DAILY KAYLEIGH Administration Ondansetron HCl 6 mg 07/18/18 12:09 07/18/18 14:34 Zofran Inj IVP 6 mg Q6H PRN Administration Nausea/Vomiting Oxycodone HCl 5 mg 07/16/18 21:38 07/17/18 16:54 Oxycodone Immediate Release Tab PO 5 mg Q6H PRN Administration Pain, severe (8-10) Pantoprazole Sodium 40 mg 07/18/18 07:30 07/19/18 08:13 Protonix Ec Tab PO 40 mg ACB KAYLEIGH Administration - Patient Studies Lab Studies: Microbiology Studies 07/17/18 08:00 MRSA Culture (Admit) - Final Naris MRSA NOT DETECTED 07/16/18 10:10 Blood Culture - Preliminary Blood NO GROWTH AFTER 48 HOURS 07/16/18 09:30 Blood Culture - Preliminary Blood NO GROWTH AFTER 48 HOURS 07/17/18 01:01 Gram Stain - Final Sputum Sputum Culture - Preliminary NORMAL ORAL SARAH 07/16/18 12:00 Urine Culture - Final Urine Random No Growth (<1,000 CFU/ML) 07/16/18 20:30 MRSA Culture (Admit) - Final Naris MRSA NOT DETECTED Lab Studies 07/19/18 07/19/18 07/18/18 Range/Units 06:00 06:00 05:05 WBC 1.8 L* D (4.5-11.0) 10^3/uL RBC 2.88 L (3.5-6.1) 10^6/uL Hgb 8.8 L (12.0-16.0) g/dL Hct 25.7 L (36.0-48.0) % MCV 89.2 (80.0-105.0) fl MCH 30.6 (25.0-35.0) pg MCHC 34.2 (31.0-37.0) g/dl RDW 16.7 H (11.5-14.5) % Plt Count 17 L* (120.0-450.0) 10^3/uL Manual Plt Count 45 L* (120-450) K/mm3 Neut % (Auto) 28.6 L (50.0-68.0) % Lymph % (Auto) 36.0 H (22.0-35.0) % [place] % (Auto) 35.4 H (1.0-6.0) % Eos % (Auto) 0.0 L (1.5-5.0) % Baso % (Auto) 0.0 (0.0-3.0) % Lymph # (Auto) 0.6 L (1.2-3.4) [place] # (Auto) 0.6 (0.1-0.6) Eos # (Auto) 0.0 (0.0-0.7) Baso # (Auto) 0.00 (0.0-2.0) K/mm3 Absolute Neuts (auto) 0.51 L (1.4-6.5) Sodium 142 (132-148) mmol/L Potassium 3.6 (3.6-5.0) mmol/L Chloride 108 H (98-107) mmol/L Carbon Dioxide 26 (21-33) mmol/L Anion Gap 12 (10-20) BUN 39 H (7-21) mg/dL Creatinine 1.2 (0.7-1.2) mg/dl Est GFR ( Amer) 57 Est GFR (Non-Af Amer) 47 Random Glucose 180 H (70-110) mg/dL Calcium 9.0 (8.4-10.5) mg/dL Phosphorus 2.8 (2.5-4.5) mg/dL Magnesium 2.3 H (1.7-2.2) mg/dL Total Bilirubin 1.6 H (0.2-1.3) mg/dL AST 181 H D (14-36) U/L ALT 165 H (7-56) U/L Alkaline Phosphatase 97 (38-126) U/L Total Protein 6.0 (5.8-8.3) g/dL Albumin 3.1 (3.0-4.8) g/dL Globulin 2.9 gm/dL Albumin/Globulin Ratio 1.1 (1.1-1.8) Laboratory Results - last 24 hr 07/18/18 07/19/18 07/19/18 05:05 06:00 06:00 WBC 1.8 L* D RBC 2.88 L Hgb 8.8 L Hct 25.7 L MCV 89.2 MCH 30.6 MCHC 34.2 RDW 16.7 H Plt Count 17 L* Manual Plt Count 45 L* Neut % (Auto) 28.6 L Lymph % (Auto) 36.0 H [place] % (Auto) 35.4 H Eos % (Auto) 0.0 L Baso % (Auto) 0.0 Lymph # (Auto) 0.6 L [place] # (Auto) 0.6 Eos # (Auto) 0.0 Baso # (Auto) 0.00 Absolute Neuts (auto) 0.51 L Sodium 142 Potassium 3.6 Chloride 108 H Carbon Dioxide 26 Anion Gap 12 BUN 39 H Creatinine 1.2 Est GFR ( Amer) 57 Est GFR (Non-Af Amer) 47 Random Glucose 180 H Calcium 9.0 Phosphorus 2.8 Magnesium 2.3 H Total Bilirubin 1.6 H AST 181 H D ALT 165 H Alkaline Phosphatase 97 Total Protein 6.0 Albumin 3.1 Globulin 2.9 Albumin/Globulin Ratio 1.1 Radiology Impressions: Radiology Impressions Chest X-Ray 07/18/18 07:00 IMPRESSION: No significant change in bilateral infiltrates and small left effusion Chest X-Ray 07/19/18 07:00 IMPRESSION: Stable bilateral pulmonary infiltrates with left PICC inserted terminating at the right atrium. Retraction 2-3 cm followed by confirmation radiography is recommended. Critical Care Progress Note - Nutrition Nutrition: Nutrition Category Date Time Status Heart Healthy Diet [DIET] Diets 07/16/18 Dinner Active Assessment/Plan - Assessment and Plan (Free Text) Assessment: 53 y/o F with PMH of high grade myelodysplastic syndrome s/p chemotherapy 1 month prior, lung cancer s/p lobectomy, R breast mastectomy, COPD, endocarditis presenting with 102 F fevers, chills, tachycardia and pancytopenia. ICU consulted for tachycardia, fever, and neutropenia. Pt had femoral line placed 3/5 and levophed started. Pt had 2 units pRBC and 1 FFP 3/5 and has responded appropriately to pRBC transfusion. PICC placed 3 into L arm. Plan: Neuro: - AOx3 Cardio: Neutropenic septic shock likely 2/2 PNA: - Cont current abx reigmen as per ID - Pt has been weaned off of levophed and vasopressin - PICC inserted 07/18 in L arm - Pt started on albumin per cardio - Hold BP meds per cardio and given underlying shock - Ensure MAP >65 - Will cont to closely monitor Tachycardia: - Likely responsive to underlying sepsis - Pts HR is 108 - Echo Heme: Pancytopenia 2/2 Accelerated MDS with recent chemo tx s/p 2 units pRBCs and 1 FFP: - H&H: 8.8/25.7, Platelets: 17 (manual 15) and WBC = 1.8, ANC= .51 - Heme/onc consulted, recs appreciated - Granix 300 started daily- day 3 of 5 - Coags, fibrinogen and fibrin split products - Pt responded appropriately to pRBC transfusion, will continue to monitor. Pulm: Neutropenic septic shock likely 2/2 PNA: - Chest CT: No evidence for PE. Bullous emphysema. Postoperative changes in right lung apex with focal consolidation possibly representing a pneumonia. Two nonspecific low-attenuation lesions in the left lobe of the liver. - Cont Abx as per ID - Procal elevated .52 - Flu (-) - Blood Cxs: (-) after 24 hours Hx of COPD: - Cont Xopenex TID - Solumedrol 40 IV q8 - Pulmicort BID - Acetylcystine BID - Ensure O2 sat >88 GI: - Protonix 40 IV - HHD Nephro: ZACKERY likely 2/2 Septic shock: - Pt had positive fluid balance yesterday - Improving as is pts BP even off of pressors - Keep pt euvolemic - Will cont to monitor Dispo: Pts VSS and is spontaneously protecting the airway. Pt is stable for transfer to [facility] at this time. Case seen and discussed with Dr. Juan Yoon, PGY1 <Nelson Martinez - Last Filed: 07/19/18 17:13> CCU Objective - Vital Signs / Intake & Output Vital Signs (Last 4 hours): Vital Signs Pulse Resp BP Pulse Ox 07/19/18 14:30 113 H 28 H 97 07/19/18 14:00 112 H 29 H 122/73 97 07/19/18 13:30 108 H 30 H 100 Intake and Output (Last 8hrs): Intake & Output 07/19/18 07/19/18 07/19/18 06:59 14:59 22:59 Intake Total 1040 Output Total 100 Balance 940 Weight 58.967 kg Intake: IV 960 Left Hand 900 Right Femoral 60 Oral 80 Output: Urine 100 Urine, Voided 100 Other: # Bowel Movements 2 - Medications Active Medications: Active Medications Generic Name Dose Route Start Last Admin Trade Name Freq PRN Reason Stop Dose Admin Acetaminophen 650 mg 07/16/18 15:30 07/17/18 11:32 Tylenol 325mg Tab PO 650 mg Q6H PRN Administration Fever >100.4 F Acetylcysteine 4 ml 07/17/18 20:00 07/19/18 07:29 Acetylcysteine 20% IH 4 ml BIDRESP KAYLEIGH Administration Atenolol 25 mg 07/16/18 18:00 07/16/18 19:00 Tenormin PO 25 mg BID KAYLEIGH Administration Budesonide 0.5 mg 07/17/18 20:00 07/19/18 07:30 Pulmicort Respules IH 0.5 mg [id number] KAYLEIGH Administration Doxycycline Hyclate 100 mg 07/17/18 22:00 07/19/18 10:16 Doryx PO 07/22/18 22:01 100 mg Q12 KAYLEIGH Administration Protocol NOREPINEPHRINE BIT/0.9 % NACL 4 mg in 250 mls @ 15 mls/hr 07/17/18 07:50 07/18/18 15:02 Levophed 4 Mg/ 250 Ml Ns Premixed IV 0 mcg/min .[id number] PRN 0 mls/hr TITRATE PER MD ORDER Titration Protocol 4 MCG/MIN Vasopressin 20 units/ Sodium 101 mls @ 9.09 mls/hr 07/18/18 10:00 07/18/18 21:00 Chloride IV 9.09 mls/hr .[id number] KAYLEIGH Administration Protocol 0.03 U/MIN Dextrose/Sodium Chloride 1,000 mls @ 75 mls/hr 07/18/18 10:00 07/19/18 08:13 Dextrose 5%/0.9% Ns 1000 Ml IV 75 mls/hr .[id number] KAYLEIGH Administration Meropenem 1 gm in 50 mls @ 100 mls/hr 07/18/18 18:00 07/19/18 06:20 Merrem Iv 1 Gm Premix IVPB 07/24/18 22:01 100 mls/hr 0600,1800 KAYLEIGH Administration Protocol Levalbuterol HCl 0.63 mg 07/17/18 14:00 07/19/18 13:20 Xopenex IH 0.63 mg TIDRESP KAYLEIGH Administration Methylprednisolone 40 mg 07/19/18 22:00 Solu-Medrol IVP Q12 KAYLEIGH Nicotine 1 patch 07/17/18 15:30 07/19/18 10:16 Nicoderm Cq TD 1 patch DAILY KAYLEIGH Administration Ondansetron HCl 6 mg 07/18/18 12:09 07/19/18 10:41 Zofran Inj IVP 6 mg Q6H PRN Administration Nausea/Vomiting Oxycodone HCl 5 mg 07/16/18 21:38 07/19/18 12:58 Oxycodone Immediate Release Tab PO 5 mg Q6H PRN Administration Pain, severe (8-10) Pantoprazole Sodium 40 mg 07/18/18 07:30 07/19/18 08:13 Protonix Ec Tab PO 40 mg ACB KAYLEIGH Administration - Patient Studies Lab Studies: Microbiology Studies 07/17/18 01:01 Gram Stain - Final Sputum Sputum Culture - Final NORMAL ORAL SARAH 07/16/18 10:10 Blood Culture - Preliminary Blood NO GROWTH AFTER 3 DAYS 07/16/18 09:30 Blood Culture - Preliminary Blood NO GROWTH AFTER 3 DAYS 07/17/18 08:00 MRSA Culture (Admit) - Final Naris MRSA NOT DETECTED Lab Studies 07/19/18 07/19/18 07/19/18 Range/Units 10:35 07:40 06:00 WBC (4.5-11.0) 10^3/uL RBC (3.5-6.1) 10^6/uL Hgb (12.0-16.0) g/dL Hct (36.0-48.0) % MCV (80.0-105.0) fl MCH (25.0-35.0) pg MCHC (31.0-37.0) g/dl RDW (11.5-14.5) % Plt Count (120.0-450.0) 10^3/uL Manual Plt Count 15 L* (120-450) K/mm3 Neut % (Auto) (50.0-68.0) % Lymph % (Auto) (22.0-35.0) % [place] % (Auto) (1.0-6.0) % Eos % (Auto) (1.5-5.0) % Baso % (Auto) (0.0-3.0) % Lymph # (Auto) (1.2-3.4) [place] # (Auto) (0.1-0.6) Eos # (Auto) (0.0-0.7) Baso # (Auto) (0.0-2.0) K/mm3 Absolute Neuts (auto) (1.4-6.5) Platelet Evaluation (NORMAL) PT 20.1 H (9.4-12.5) SECONDS INR 1.78 APTT 28.2 (26.9-38.3) Seconds Sodium 142 (132-148) mmol/L Potassium 3.6 (3.6-5.0) mmol/L Chloride 108 H (98-107) mmol/L Carbon Dioxide 26 (21-33) mmol/L Anion Gap 12 (10-20) BUN 39 H (7-21) mg/dL Creatinine 1.2 (0.7-1.2) mg/dl Est GFR ( Amer) 57 Est GFR (Non-Af Amer) 47 Random Glucose 180 H (70-110) mg/dL Calcium 9.0 (8.4-10.5) mg/dL Phosphorus 2.8 (2.5-4.5) mg/dL Magnesium 2.3 H (1.7-2.2) mg/dL Total Bilirubin 1.6 H (0.2-1.3) mg/dL AST 181 H D (14-36) U/L ALT 165 H (7-56) U/L Alkaline Phosphatase 97 (38-126) U/L Total Protein 6.0 (5.8-8.3) g/dL Albumin 3.1 (3.0-4.8) g/dL Globulin 2.9 gm/dL Albumin/Globulin Ratio 1.1 (1.1-1.8) 07/19/18 Range/Units 06:00 WBC 1.8 L* D (4.5-11.0) 10^3/uL RBC 2.88 L (3.5-6.1) 10^6/uL Hgb 8.8 L (12.0-16.0) g/dL Hct 25.7 L (36.0-48.0) % MCV 89.2 (80.0-105.0) fl MCH 30.6 (25.0-35.0) pg MCHC 34.2 (31.0-37.0) g/dl RDW 16.7 H (11.5-14.5) % Plt Count 17 L* (120.0-450.0) 10^3/uL Manual Plt Count (120-450) K/mm3 Neut % (Auto) 28.6 L (50.0-68.0) % Lymph % (Auto) 36.0 H (22.0-35.0) % [place] % (Auto) 35.4 H (1.0-6.0) % Eos % (Auto) 0.0 L (1.5-5.0) % Baso % (Auto) 0.0 (0.0-3.0) % Lymph # (Auto) 0.6 L (1.2-3.4) [place] # (Auto) 0.6 (0.1-0.6) Eos # (Auto) 0.0 (0.0-0.7) Baso # (Auto) 0.00 (0.0-2.0) K/mm3 Absolute Neuts (auto) 0.51 L (1.4-6.5) Platelet Evaluation Low (NORMAL) PT (9.4-12.5) SECONDS INR APTT (26.9-38.3) Seconds Sodium (132-148) mmol/L Potassium (3.6-5.0) mmol/L Chloride (98-107) mmol/L Carbon Dioxide (21-33) mmol/L Anion Gap (10-20) BUN (7-21) mg/dL Creatinine (0.7-1.2) mg/dl Est GFR ( Amer) Est GFR (Non-Af Amer) Random Glucose (70-110) mg/dL Calcium (8.4-10.5) mg/dL Phosphorus (2.5-4.5) mg/dL Magnesium (1.7-2.2) mg/dL Total Bilirubin (0.2-1.3) mg/dL AST (14-36) U/L ALT (7-56) U/L Alkaline Phosphatase (38-126) U/L Total Protein (5.8-8.3) g/dL Albumin (3.0-4.8) g/dL Globulin gm/dL Albumin/Globulin Ratio (1.1-1.8) Laboratory Results - last 24 hr 07/19/18 07/19/18 07/19/18 06:00 06:00 07:40 WBC 1.8 L* D RBC 2.88 L Hgb 8.8 L Hct 25.7 L MCV 89.2 MCH 30.6 MCHC 34.2 RDW 16.7 H Plt Count 17 L* Manual Plt Count 15 L* Neut % (Auto) 28.6 L Lymph % (Auto) 36.0 H [place] % (Auto) 35.4 H Eos % (Auto) 0.0 L Baso % (Auto) 0.0 Lymph # (Auto) 0.6 L [place] # (Auto) 0.6 Eos # (Auto) 0.0 Baso # (Auto) 0.00 Absolute Neuts (auto) 0.51 L Platelet Evaluation Low PT INR APTT Sodium 142 Potassium 3.6 Chloride 108 H Carbon Dioxide 26 Anion Gap 12 BUN 39 H Creatinine 1.2 Est GFR ( Amer) 57 Est GFR (Non-Af Amer) 47 Random Glucose 180 H Calcium 9.0 Phosphorus 2.8 Magnesium 2.3 H Total Bilirubin 1.6 H AST 181 H D ALT 165 H Alkaline Phosphatase 97 Total Protein 6.0 Albumin 3.1 Globulin 2.9 Albumin/Globulin Ratio 1.1 07/19/18 10:35 WBC RBC Hgb Hct MCV MCH MCHC RDW Plt Count Manual Plt Count Neut % (Auto) Lymph % (Auto) [place] % (Auto) Eos % (Auto) Baso % (Auto) Lymph # (Auto) [place] # (Auto) Eos # (Auto) Baso # (Auto) Absolute Neuts (auto) Platelet Evaluation PT 20.1 H INR 1.78 APTT 28.2 Sodium Potassium Chloride Carbon Dioxide Anion Gap BUN Creatinine Est GFR ( Amer) Est GFR (Non-Af Amer) Random Glucose Calcium Phosphorus Magnesium Total Bilirubin AST ALT Alkaline Phosphatase Total Protein Albumin Globulin Albumin/Globulin Ratio Radiology Impressions: Radiology Impressions Chest X-Ray 07/19/18 07:00 IMPRESSION: Stable bilateral pulmonary infiltrates with left PICC inserted terminating at the right atrium. Retraction 2-3 cm followed by confirmation radiography is recommended. Critical Care Progress Note - Nutrition Nutrition: Nutrition Category Date Time Status Heart Healthy Diet [DIET] Diets 07/16/18 Dinner Active Addendum Addendum: 07/19/18 17:13 MICU Attending Addendum Patient seen and examined discussed with housestaff on rounds Agree with above note with following additions/exceptions: 53F w/ high grade MDS s/p chemotherapy 1 month prior, lung cancer s/p lobectomy, R breast mastectomy, COPD, endocarditis admitted for neuotrpenic septic shock Cont broad spectrum abx awaitng cultutres off pressors now change TLC 3/6 f/u hem recs stop fluids given pulm edema Follow ZACKERY and strict I/O stable for transfer out of ICU FULL CODE Rest of care as mentioned in above resident note Nelson Martinez MD MICU Attending
[2018-07-19 10:40] LABS: PLATELET ESTIMATE LOW (NORMAL)
[2018-07-19 11:04] LABS: INR 1.78; PARTIAL THROMBOPLASTIN TIME 28.2 Seconds (26.9-38.3); PROTHROMBIN TIME 20.1 SECONDS (9.4-12.5)
--- NOTE | 2018-07-19 11:15 | PN ---
DATE: 07/19/2018 SUBJECTIVE: The patient is in bed in no acute distress, nontoxic. PHYSICAL EXAMINATION VITAL SIGNS: On exam, temperature 98, blood pressure 126/70, respiratory rate of 21, heart rate of 103. HEENT: Unremarkable. NECK: Supple. LUNGS: Have decreased breath sounds. HEART: Normal S1, S2. ABDOMEN: Soft, nontender. LABORATORY DATA: Reveals the patient's white count is 1.8, hemoglobin of 8, platelets of 17,000 and the patient has absolute poly count of over 500. At this point, microbiology reveals the MRSA is not detected. Sputum cultures negative. Nares MRSA is not detected. Blood cultures, no growth. Urine cultures, no growth. The patient had a chest x-ray this morning which reveals a left PICC line inserted terminating right atrium. Consider retraction, stable pulmonary infiltrates noted on the chest x-ray. Review of orders reveals the patient to be on p.o. doxycycline, IV meropenem, Solu-Medrol. ASSESSMENT AND PLAN: This is a 53-year-old female admitted with septic shock, healthcare-associated pneumonia, neutropenic febrile, patient with on pressors with acute kidney injury, thus for all the cultures are negative. Neutropenia is resolving on meropenem, doxycycline. The patient is also on Solu-Medrol and Levophed. Terrance Juan MD
[2018-07-19] MEDS: oxyCODONE 5 mg Immediate Release Tab PO PRN ×2 (12:58→22:37)
--- NOTE | 2018-07-19 13:49 | PN ---
DATE: 07/19/2018 PULMONARY PROGRESS NOTE REFERRING PHYSICIAN: August Lara MD. SUBJECTIVE: The patient is seen lying in bed. Head of bed elevated. No acute distress. No overnight events reported. The patient reports feeling a little bit better this morning, states she still has cough and shortness of breath at times. The patient is no longer on vasopressors. No headache, rhinitis, chest pain, abdominal pain, nausea, vomiting, diarrhea, leg pain or leg swelling reported. OBJECTIVE: GENERAL: No acute distress. VITAL SIGNS: Blood pressure 135/74, pulse 104, oxygen saturation 96% nasal canula and temperature 98. HEENT: Moist mucous membrane. Mallampati score of 4. Crowded airway. NECK: Supple. No JVD. CHEST: Scattered rhonchi bilaterally. CARDIOVASCULAR: S1 and S2. ABDOMEN: Soft and nontender. No distention. No organomegaly. EXTREMITIES: No bilateral lower extremity edema. NEUROLOGIC: Awake, alert and verbal. Follows commands. MEDICATIONS: Reviewed. Tylenol 650 mg every 6 hours p.r.n. fever greater than 100.4, Mucomyst 4 mL inhalation twice a day, atenolol 25 mg twice a day, Pulmicort 0.5 mg every 12 hours, dextrose 5%, sodium chloride 0.9% in 1000 mL at 75 mL per hour, doxycycline 100 mg every 12 hours, Xopenex 0.63 mg inhalation three times a day, meropenem 1 g twice a day, Solu-Medrol 40 mg every 8 hours, nicotine patch transdermal daily, Levophed 4 mg p.r.n., Zofran 6 mg every 6 hours p.r.n., oxycodone 5 mg p.o. every 6 hours p.r.n., Protonix 40 mg daily, vasopressin 20 units and sodium chloride at 9.09 mL per hour. LABORATORY DATA: Reviewed. WBC 1.8, RBC 2.8, hemoglobin 8.8, hematocrit 25.7 and platelets 17. PT 20.1, INR 1.78 and APTT 28.2. Sodium 142, potassium 3.6, chloride 108, carbon dioxide 26, anion gap 12, BUN 39, creatinine 1.2, GFR 57, random glucose 180, calcium 9, phosphorous 2.8, magnesium 2.3, total bilirubin 1.6, AST 181, ALT 165, alkaline phosphatase 97, total protein 6, albumin 3.1, globulin 2.9 and albumin-globulin ratio 1.1. Chest x-ray shows stable bilateral pulmonary infiltrates and retraction 2.3 cm followed by conformation. IMPRESSION AND PLAN: Leukemia, active tobacco use, recently on chemotherapy, neutropenia, sepsis, healthcare-associated pneumonia, anemia, asthma, chronic obstructive pulmonary disease, history of lung cancer, history of breast cancer, presently off of Levophed during visit. Continue antibiotics as per Infectious Disease. Gastric prophylaxis. Sequential compression devices to bilateral lower extremities for deep venous thrombosis prophylaxis, as the patient cannot be on chemical deep venous thrombosis prophylaxis due to anemia status. Continue inhaled bronchodilators. The patient is also with cardiomyopathy, decreased left ventricular function. We will decrease Solu-Medrol to 40 mg every 12 hours. We recommend the patient have physical therapy, possibly out of bed to chair. We will repeat ABG, CBC, CMP, chest x-ray in the morning. ABGs for today were ordered, not drawn yet. Critical care time spent more than 35 minutes. This patient was seen and examined with Dr. Maurer. Discussed assessment and plan as described above. This patient was seen and examined by Henry Marquez, nurse practitioner. Discussed assessment and plan as described above. Thank you for this consult and we will follow with you. Henry Marquez APN Solange Maurer MD JONAH
--- NOTE | 2018-07-19 16:55 | PN ---
DATE: 07/19/2018 REASON FOR CONSULTATION AND FOLLOWUP: Chest pain, cough, fever, tachycardia, hypotension, possibly neutropenic sepsis. SUBJECTIVE: The patient denies any chest pain, shortness of breath, or any palpitation, but feels tenderness in the chest and complains of chest pain on coughing. PHYSICAL EXAMINATION: As follows; VITAL SIGNS: Temperature afebrile, heart rate 104, and blood pressure 135/74. HEENT: PERRLA. Extraocular muscles intact. NECK: Supple. No carotid bruits or thyromegaly. CHEST: Clear to auscultation. Tenderness noted in the front of the chest. HEART: S1 and S2 regular. ABDOMEN: Soft. EXTREMITIES: Clubbing and cyanosis negative. LABORATORY DATA: Blood workup; WBC 1.8, hemoglobin 8.8, hematocrit 25.7, and platelet count 17. Chemistry shows sodium 140, potassium 3.6, chloride 108, carbon dioxide 26, anion gap of 12, BUN 39, and creatinine 1.2. 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 The patient got chemotherapy, admitted with cough, fever, chills, probably neutropenic sepsis. Platelet count, low, pancytopenic. Chest pain , no evidence of acute myocardial infarction. RECOMMENDATIONS: Broad-spectrum antibiotic. Consider blood product as per ID. Recent echo shows, dated 07/17/2018, 45-50% trace aortic regurgitation, moderate mitral regurgitation, [id number] tricuspid regurgitation, and right ventricular systolic pressure 31. No pericardial effusion. So far no evidence of acute myocardial infarction, most likely the chest pain is musculoskeletal. Since the patient has a low platelet count, cannot give NSAID. Continue adequate analgesia. Hem/Onc followup. Overall, the patient's condition is critical. Long-term prognosis is guarded. We will follow with you. Thank you Dr. Lopez for providing us the opportunity in taking care of the patient, Codi Pope. Thank you Dr. Lara for providing us the opportunity in taking care of the patient, Codi Pope. Solange Langley MD [facility] # [id number]
[2018-07-20] MEDS: Meropenem IV 1 gm in NS 1 GM/50 ML BAG IVPB SCH ×2 (05:48→21:04)
[2018-07-20 06:45] LABS: BASO # 0.01 K/mm3 (0.0-2.0); BASO % 0.4 % (0.0-3.0); EOS % 0.8 % (1.5-5.0); LYMPH # 0.8 (1.2-3.4); LYMPH % 31.3 % (22.0-35.0); MEAN CELL VOLUME 89.7 fl (80.0-105.0); MEAN CORPUSCULAR HEMOGLOBIN 30.5 pg (25.0-35.0); RBC 2.62 10^6/uL (3.5-6.1); RED CELL DISTRIBUTION WIDTH 16.4 % (11.5-14.5); WHITE BLOOD COUNT 2.5 10^3/uL (4.5-11.0)
[2018-07-20 06:47] LABS: PLATELET COUNT 11 10^3/uL (120.0-450.0)
[2018-07-20 07:21] LABS: ALT/SGPT 213 U/L (7-56); AST/SGOT 152 U/L (14-36); BLOOD UREA NITROGEN 42 mg/dL (7-21); CALCIUM 8.9 mg/dL (8.4-10.5); GFR NON-AFRICAN AMERICAN > 60
[2018-07-20] MEDS: Acetylcysteine 20% Inhal Soln (4ml) IH SCH ×2 (07:34→19:40)
[2018-07-20] MEDS: Budesonide 0.5 mg/2 ml Inhal Susp UD IH SCH ×2 (07:34→19:40)
[2018-07-20] MEDS: Levalbuterol 0.63 MG/3 ML Inhal Soln UD IH SCH ×3 (07:34→19:40)
[2018-07-20 08:16] LABS: PLATELET COUNT MANUAL 10 K/mm3 (120-450)
[2018-07-20] MEDS: Pantoprazole 40 mg EC Tab PO SCH (08:17)
--- NOTE | 2018-07-20 09:23 | RAD ---
Date of service: 07/20/2018 HISTORY: follow up COMPARISON: 07/19/2018 FINDINGS: LUNGS: No significant change in right lower lobe and left upper lobe infiltrate. PLEURA: Small bilateral pleural effusions CARDIOVASCULAR: No aortic atherosclerotic calcification present. Normal cardiac size. No pulmonary vascular congestion. OSSEOUS STRUCTURES: No significant abnormalities. VISUALIZED UPPER ABDOMEN: Normal. OTHER FINDINGS: None. IMPRESSION: No significant change in right lower lobe and left upper lobe infiltrate.
--- NOTE | 2018-07-20 10:25 | CP.PCM.CON ---
History of Present Illness - History of Present Illness History of Present Illness: GI fellow PGY 4 consult note Patient is a pleasant 53 female who was admitted to ICU and treated 4 days ago for pneumonia, shock. She is now complaining of worsening right upper quadrant abdominal pain over the last 3 days. She has poor appetite. Denies acid reflux, previous ulcers, bleeding, diarrhea. She has history of sickle cell disease with history of gallstones and she still has her gallbladder. The pain is moderately severe and worse with abdominal pressure. There are no relieving factors. Notably her LFTs have been increasing in a hepatocellular pattern. She says she has had this pain 10 years ago he was told that her liver was inflamed but she cannot comment further. Past medical historyMDS, leukemia on chemotherapy, sickle cell, COPD, breast cancer Past surgical historymastectomy, lobectomy, reports previous EGD but cannot comment further Social historydenies current alcohol, former smoker Family historyreports mother with pancreatic/gastric cancers 12 point review of systems is negative except for above Past Patient History - Infectious Disease Hx of Infectious Diseases: None - Tetanus Immunizations Tetanus Immunization: Unknown - Past Social History Smoking Status: Former Smoker - CARDIAC Hx Pacemaker: No - PULMONARY Hx Chronic Obstructive Pulmonary Disease (COPD): Yes - NEUROLOGICAL Hx Neurological Disorder: No - HEENT Hx HEENT Problems: No - RENAL Other/Comment: "englarged kidney" - ENDOCRINE/METABOLIC Hx Endocrine Disorders: No - HEMATOLOGICAL/ONCOLOGICAL Hx Cancer: Yes (right breast CA) - INTEGUMENTARY Hx Dermatological Problems: No - MUSCULOSKELETAL/RHEUMATOLOGICAL Hx Musculoskeletal Disorders: No - GASTROINTESTINAL Hx Gastrointestinal Disorders: Yes (CONSTIPATION,WEIGHT LOSS 14 LBS .) - GENITOURINARY/GYNECOLOGICAL Hx Genitourinary Disorders: No - PSYCHIATRIC Hx Depression: Yes Hx Substance Use: No - SURGICAL HISTORY Hx Mastectomy: No - ANESTHESIA Hx Anesthesia: Yes Hx Anesthesia Reactions: No Hx Malignant Hyperthermia: No Meds Allergies/Adverse Reactions: Allergies Allergy/AdvReac Type Severity Reaction Status Date / Time No Known Allergies Allergy Verified 07/16/18 14:33 - Medications Medications: Current Medications Acetaminophen (Tylenol 325mg Tab) 650 mg PO Q6H PRN PRN Reason: Fever >100.4 F Last Admin: 07/17/18 11:32 Dose: 650 mg Acetylcysteine (Acetylcysteine 20%) 4 ml IH BIDRESP KAYLEIGH Last Admin: 07/20/18 07:34 Dose: 4 ml Atenolol (Tenormin) 25 mg PO BID [facility] Last Admin: 07/16/18 19:00 Dose: 25 mg Budesonide (Pulmicort Respules) 0.5 mg IH [id number] [facility] Last Admin: 07/20/18 07:34 Dose: 0.5 mg Doxycycline Hyclate (Doryx) 100 mg PO Q12 [facility]; Protocol Stop: 07/22/18 22:01 Last Admin: 07/19/18 21:23 Dose: 100 mg Dextrose/Sodium Chloride (Dextrose 5%/0.9% Ns 1000 Ml) 1,000 mls @ 75 mls/hr IV .[id number] [facility] Last Admin: 07/19/18 21:26 Dose: 75 mls/hr Meropenem (Merrem Iv 1 Gm Premix) 1 gm in 50 mls @ 100 mls/hr IVPB 0600,1800 [facility]; Protocol Stop: 07/24/18 22:01 Last Admin: 07/20/18 05:48 Dose: 100 mls/hr Levalbuterol HCl (Xopenex) 0.63 mg IH TIDRESP [facility] Last Admin: 07/20/18 07:34 Dose: 0.63 mg Methylprednisolone (Solu-Medrol) 40 mg IVP Q12 [facility] Last Admin: 07/19/18 21:23 Dose: 40 mg Nicotine (Nicoderm Cq) 1 patch TD DAILY [facility] Last Admin: 07/19/18 10:16 Dose: 1 patch Ondansetron HCl (Zofran Inj) 6 mg IVP Q6H PRN PRN Reason: Nausea/Vomiting Last Admin: 07/20/18 08:16 Dose: 6 mg Oxycodone HCl (Oxycodone Immediate Release Tab) 5 mg PO Q6H PRN PRN Reason: Pain, severe (8-10) Last Admin: 07/19/18 22:37 Dose: 5 mg Pantoprazole Sodium (Protonix Ec Tab) 40 mg PO ACB [facility] Last Admin: 07/20/18 08:17 Dose: 40 mg Physical Exam - Constitutional Appears: Non-toxic, No Acute Distress, Chronically Ill - Head Exam Head Exam: ATRAUMATIC, NORMAL INSPECTION - Eye Exam Eye Exam: EOMI, Normal appearance - ENT Exam ENT Exam: Mucous Membranes Moist, Normal Exam - Respiratory Exam Respiratory Exam: Clear to Auscultation Bilateral, NORMAL BREATHING PATTERN - Cardiovascular Exam Cardiovascular Exam: REGULAR RHYTHM, +S1, +S2 - GI/Abdominal Exam GI & Abdominal Exam: Normal Bowel Sounds, Soft, Tenderness Additional comments: right upper quadrant abdominal tenderness with minimal palpation - Extremities Exam Extremities exam: Positive for: normal inspection. Negative for: pedal edema - Neurological Exam Neurological exam: Alert, CN II-XII Intact, Oriented x3 - Psychiatric Exam Psychiatric exam: Depressed, Flat Affect - Skin Skin Exam: Normal Color, Warm Results - Vital Signs Recent Vital Signs: Last Vital Signs Temp 97.8 F 07/20/18 05:56 Pulse 98 H 07/20/18 05:56 Resp 18 07/20/18 05:56 BP 112/71 07/20/18 05:56 Pulse Ox 96 07/20/18 05:56 - Labs Result Diagrams: 07/20/18 06:00 07/20/18 06:00 Labs: Laboratory Results - last 24 hr 07/19/18 07/19/18 07/19/18 06:00 07:40 10:35 WBC RBC Hgb Hct MCV MCH MCHC RDW Plt Count Manual Plt Count 15 L* Neut % (Auto) Lymph % (Auto) [place] % (Auto) Eos % (Auto) Baso % (Auto) Lymph # (Auto) [place] # (Auto) Eos # (Auto) Baso # (Auto) Absolute Neuts (auto) Platelet Evaluation Low PT 20.1 H INR 1.78 APTT 28.2 Sodium Potassium Chloride Carbon Dioxide Anion Gap BUN Creatinine Est GFR ( Amer) Est GFR (Non-Af Amer) Random Glucose Calcium Phosphorus Magnesium Total Bilirubin AST ALT Alkaline Phosphatase Total Protein Albumin Globulin Albumin/Globulin Ratio 07/20/18 07/20/18 06:00 06:00 WBC 2.5 L D RBC 2.62 L Hgb 8.0 L Hct 23.5 L MCV 89.7 MCH 30.5 MCHC 34.0 RDW 16.4 H Plt Count 11 L* Manual Plt Count 10 L* Neut % (Auto) 28.5 L Lymph % (Auto) 31.3 [place] % (Auto) 39.0 H Eos % (Auto) 0.8 L Baso % (Auto) 0.4 Lymph # (Auto) 0.8 L [place] # (Auto) 1.0 H Eos # (Auto) 0.0 Baso # (Auto) 0.01 Absolute Neuts (auto) 0.71 L Platelet Evaluation PT INR APTT Sodium 144 Potassium 3.4 L Chloride 110 H Carbon Dioxide 27 Anion Gap 11 BUN 42 H Creatinine 0.9 Est GFR ( Amer) > 60 Est GFR (Non-Af Amer) > 60 Random Glucose 153 H Calcium 8.9 Phosphorus 2.5 Magnesium 2.4 H Total Bilirubin 1.2 AST 152 H ALT 213 H Alkaline Phosphatase 116 Total Protein 5.8 Albumin 3.0 Globulin 2.8 Albumin/Globulin Ratio 1.0 L Assessment & Plan - Assessment and Plan (Free Text) Assessment: # acute abdominal pain # Elevated liver enzymes # elevated INR # sickle cell # pneumonia, septic shock # COPD # myelodysplastic syndrome on chemotherapy # pancytopenia plan: -unclear etiology of abnormal liver tests (hepatocellular) and liver function however she was very sick in the ICU previously and abnormalities can be associated with the sepsis or possibly a new hepatobiliary problem. Hopefully imaging will explain further. -INR is elevated however she is not encephalopathic. -She is on a few hepatotoxic medications. Continue to monitor, and keep a consideration. Abdominal ultrasound negative -Abdominal/Pelvis CT with PO contrast -Obtain hep panel -Continue to monitor liver tests, INR -continue to monitor labs, neutropenic precautions, transfuse platelets per hematology -No endoscopic evaluation planned at this time -Continue diet Case reviewed with Dr. Dela Cruz, see attestation - Date & Time Date: 07/20/18 Time: 10:31
--- NOTE | 2018-07-20 11:06 | US ---
Date of service: 07/20/2018 HISTORY: abd tenderness COMPARISON: None. TECHNIQUE: Sonographic evaluation of the right upper quadrant of the abdomen. FINDINGS: LIVER: Measures 19.4 cm in length. Patent portal vein. Portal venous flow: Hepatopetal. Unremarkable echogenicity of the liver parenchyma. No mass. No intrahepatic bile duct dilatation. GALLBLADDER: Gallbladder wall is collapsed accentuating gallbladder wall thickening. No listed sonographic New sign. Sludge is visible, gallstones are COMMON BILE DUCT: Measures 5.5 mm. No stones. No dilatation. PANCREAS: Unremarkable as visualized. No mass. No ductal dilatation. RIGHT KIDNEY: Measures 3.5 x 11.3 cm in length. Normal echogenicity. No calculus, mass, or hydronephrosis. AORTA: No aneurysmal dilatation. IVC: Unremarkable. OTHER FINDINGS: Incompletely visualized right pleural effusion, finding identified recent chest radiograph July 20, 2018 IMPRESSION: Hepatomegaly common normal echo characteristics of the liver. No acute findings referable to the gallbladder. Incidental small right pleural effusion.
[2018-07-20] MEDS: MethylPREDNISolone 40 mg Vial IVP SCH ×2 (12:00→21:04)
[2018-07-20] MEDS: Dextrose 5%/0.9% NS 1,000 ML IV SCH ×2 (12:07→15:32)
[2018-07-20] MEDS ORDERED: Potassium Chloride 20 mEq ER Tab PO ONE (14:32)
--- NOTE | 2018-07-20 15:49 | PN ---
DATE: 07/20/2018 This is [facility]'s hospital visit on the telemetry floor. For Dr. Lopez. SUBJECTIVE: The patient is a 53-year-old female seen sitting up in bed, now transferred on the Intensive Care Unit after being hospitalized for increasing shortness of breath and pneumonia via the emergency room. She sees Dr. Lopez for high-grade myelodysplastic syndrome which is accelerated; although, she is not a candidate for transplant with the patient being followed closely with pancytopenic indices now being aggressively treated. At present, she feels weak; however, denies any significant pain except for minimal abdominal discomfort and as per nursing, no active bleeding despite significant thrombocytopenia. She continues on Granix for her neutropenia and is on neutropenic precautions along with IV antibiotics as per Dr. Juan. OBJECTIVE/PHYSICAL EXAMINATION: VITAL SIGNS: Temperature 97.8, pulse 94, respirations 18, blood pressure 150/80 and pulse ox 96%. HEENT: Unremarkable. Tongue is moist. NECK: Supple. HEART: Tachy rate, regular rhythm. LUNGS: Occasional rhonchi, faint expiratory wheeze. ABDOMEN: Soft and nontender. EXTREMITIES: No edema. SKIN: Warm and dry. NEUROLOGIC: Awake and alert, but lethargic. LABORATORY DATA: The patient's labs were done. White blood cell count is 2.5 increased from 1.8 yesterday with an absolute neutrophil count of 0.7 up from 0.5 yesterday. The patient continues on Granix. Her hemoglobin today is 8.0, hematocrit 23.5 [place] [id number] [place] [id number]. Her metabolic panel showed a potassium of 3.4, chloride of 110, BUN of 42 with a normal creatinine is 0.9, nonfasting glucose 153, magnesium 2.4, AST 152 down from 181 yesterday, ALT of 213 up from 165 yesterday. Her INR was done yesterday it was 1.78. The patient had a chest x-ray done earlier today, it was read as no significant change in right lower lobe and left upper lobe infiltrate. The patient had abdominal ultrasound also done earlier today it was read as hepatomegaly, common normal echo, of the liver, no acute findings referable to right pleural effusion. ASSESSMENT: Pneumonia, early septic shock, neutropenic sepsis, pancytopenia, known accelerated myelodysplastic syndrome possibly involving to leukemia, history of sickle cell disease, hypotension now corrected, acute kidney injury, tobacco abuse, chronic obstructive pulmonary disease, history of lung cancer and history of breast cancer. PLAN: For this patient, after conversation with Dr. Lopez is to transfuse one unit of single donor platelets after premedication with Tylenol and Benadryl as the patient is already on steroids. We will also transfuse two units of packed red blood cells for her anemic indices and continue with Granix on the daily basis. Also continue present medical regimen as per consultants and attending with the prognosis for this patient guarded. We will monitor clinically with labs. This is a complex patient with a comprehensive medically necessary and appropriate visit carried out in excess of 50 minutes with the patient's questions answered for her satisfaction. Clint Mcduffie MD
[2018-07-20] MEDS ORDERED: Barium Sulfate Susp 2.1% w/v, 2.0% w/w 450 mL Bottle PO ONE (17:24)
--- NOTE | 2018-07-20 18:17 | PN ---
DATE: 07/20/2018 LOCATION: The patient is in the Room 276, Bed 2. REASON FOR CONSULTATION AND FOLLOWUP: Chest pain, cough, fever, tachycardia, hypotension,and possible neutropenic sepsis. SUBJECTIVE: The patient is lying comfortably in bed without any chest pain. Denies short of breath or palpitation, but she states that she still has cough and she gets pain in the chest when she has cough and she has also local tenderness in the area of her pain. PHYSICAL EXAMINATION VITAL SIGNS: Blood pressure 150/80, earlier in the morning blood pressure was 112/71, respirations 20, pulse 94, temperature 98.4. HEENT: Head is normocephalic. Eyes; pupils normal. Conjunctivae pale. NECK: JVP low. Carotids are equal. THORAX: AP diameter normal. As mentioned, the patent had lumpectomy before, a surgery. ABDOMEN: Soft. Bowel sound normal. EXTREMITIES: No clubbing. No cyanosis. LABORATORY DATA: WBC 2.5, hemoglobin 8.0, hematocrit 23.5, platelet 11. Sodium 144, potassium 3.4, BUN 42, creatinine 0.9, random glucose 153, calcium 8.9, phosphorus 2.5, magnesium 2.4, bilirubin 1.2, AST 152, ALT 213, total protein 5.8, and albumin 3.0. Chest x-ray, right lower lobe and left upper lobe infiltrates. DIAGNOSES: History of breast cancer status post lumpectomy of the right breast in 2003, status post lung cancer status post chemotherapy, recently found to have myelodysplastic syndromes, the patient has leukemia, the patient got chemotherapy, admitted with cough, fever, and chills with pneumonia, healthcare-associated bilateral pneumonia probably related to neutropenic sepsis, the patient has leukopenia, anemia, and thrombocytopenia. The patient's echocardiogram on 07/17/2018 showed ejection fraction 45% to 50%, moderate mitral regurgitation, [id number] tricuspid regurgitation, right ventricular systolic pressure 31 mmHg, no pericardial effusion, with no evidence of myocardial infarction. The patient's chest pain is related to cough, it is probably pleuritic or musculoskeletal pain. Since platelet count is low, cannot give NSAIDs and ASAID. Continue antibiotics. PLAN: The patient continuing on IV fluid, doxycycline hyclate 100 mg every 12 hours, Granix 300 mcg subcutaneous daily, meropenem 1 gram IV two times a day, oxycodone for pain, Protonix 40 mg p.o. daily, methylprednisolone 40 mg IV every 12 hours, and atenolol 25 mg two times a day. We will continue this therapy and we will monitor with you and follow with you. The patient's potassium reported low, we will give 20 mEq of potassium and repeat SMA-7 in the morning. We will follow with you. Solange Escobar MD
[2018-07-20] MEDS ORDERED: POLYETHYLENE GLYCOL 3350 17 GM/Dose PACKET PO STA (20:32)
[2018-07-20] MEDS: oxyCODONE 5 mg Immediate Release Tab PO PRN (21:23)
--- NOTE | 2018-07-20 22:50 | PN ---
DATE: 07/20/2018 SUBJECTIVE: The patient is in bed in no acute distress, nontoxic. OBJECTIVE: VITAL SIGNS: On exam, temperature is 97, blood pressure is 140/80, respiratory rate of 80, heart rate of 88. HEENT: Unremarkable. NECK: Supple. LUNGS: Have decreased breath sounds. HEART: Normal S1, S2. ABDOMEN: Soft, nontender. LABORATORY EXAMINATION: Reveals a white count is 2.5 with absolute count of over 700. Chemistries are noted. BUN of 42, creatinine of 0.9 and the procalcitonin 0.52. Urinalysis is noted. Serology is noted. Microbiology reveals the blood cultures are negative. Urine cultures are negative. Naris MRSA negative twice. Sputum cultures are negative. Review of orders reveals the patient to be on meropenem, Solu-Medrol. The patient had an abdominal ultrasound which is negative, common bile duct of 5.5 with no stones and no dilatation. Dr. Clint Mcduffie's note is reviewed. The chest x-ray is noted. No significant change of right lower lobe and right upper lobe infiltrate. ASSESSMENT AND PLAN This is a 53-year-old female admitted with septic shock, healthcare-associated pneumonia, neutropenic febrile patient and acute kidney injury now much improved on meropenem and doxycycline. We will complete a short course therapy. We will follow the white count and resolution of neutropenia. Terrance Juan MD
--- NOTE | 2018-07-20 22:52 | PN ---
DATE: 07/20/2018 PULMONARY PROGRESS NOTE REFERRING PHYSICIAN: Clint Mcduffie MD SUBJECTIVE: She is lying in the bed, leukopenic precaution is being used, will receive platelets today. Still having cough, some sputum production. No vomiting, no hematuria, diarrhea, leg pain or leg swelling. OBJECTIVE: GENERAL: No acute distress. VITAL SIGNS: Temperature 98, heart rate 83, respiratory rate 16, blood pressure 152/90, and pulse ox 98% on nasal cannula. HEENT: Moist mucous membranes. No ulcer or thrush noted. NECK: Supple. No JVD. LUNGS: Have scattered rhonchi. Few crackles. HEART: S1 and S2. ABDOMEN: Soft and nontender. No organomegaly. EXTREMITIES: No edema. NEUROLOGIC: Awake and Alert, follows simple command. MEDICATIONS: She is on Mucomyst inhaled twice a day, also doxycycline 100 mg twice a day, meropenem 1 g IV every 12 hours, Nicoderm patch daily, oxycodone immediate release 5 mg every 6 hours p.r.n., Protonix 40 mg , Pulmicort inhaled twice a day, Solu-Medrol 40 mg twice a day, Tenormin 25 mg twice a day, Tylenol p.r.n., Xopenex inhaled three times a day, Zofran p.r.n. basis. LABORATORY DATA: Shows hemoglobin 8.7, hematocrit 23.5, WBC 2.5, and platelet count is 10. Sodium 144, potassium 3.4, chloride 110, bicarbonate 27, BUN 42, creatinine 0.9, glucose 153, calcium is 8.9, phosphorus 2.5, magnesium 2.4, AST 152, ALT 213, alk phos is 116. Albumin is 3.0. Microbiology, blood culture, urine cultures, nares and sputum are unremarkable. Had a chest x-ray done which is unremarkable for any new changes on the infiltrate of the right lung. Also had abdominal ultrasound done this afternoon which shows hepatomegaly, no acute findings, small right pleural effusion noted though. ASSESSMENT AND PLAN: Leukemia; chronic lung disease, been on chemotherapy; neutropenic; thrombocytopenia; sepsis; being treated for healthcare-associated infection; lung cancer, history of breast cancer. Continue antibiotics covering healthcare-associated organism. Continue IV and inhaled bronchodilator. Supportive care. Hematology/Oncology followup. If stable, we will try to decrease Solu-Medrol by tomorrow. Follow up labs in the morning. we will follow with you. Solange Maurer MD
[2018-07-21] MEDS: Meropenem IV 1 gm in NS 1 GM/50 ML BAG IVPB SCH (06:24)
[2018-07-21] MEDS: Dextrose 5%/0.9% NS 1,000 ML IV SCH (06:25)
[2018-07-21 07:01] LABS: ALB/GLOB RATIO 1.1 (1.1-1.8); ALT/SGPT 308 U/L (7-56); AST/SGOT 199 U/L (14-36); BLOOD UREA NITROGEN 42 mg/dL (7-21); CALCIUM 9.1 mg/dL (8.4-10.5); GFR NON-AFRICAN AMERICAN > 60
[2018-07-21 07:03] LABS: BASO # 0.02 K/mm3 (0.0-2.0); BASO % 0.5 % (0.0-3.0); EOS # 0.1 (0.0-0.7); EOS % 2.3 % (1.5-5.0); HEMOGLOBIN 11.2 g/dL (12.0-16.0); LYMPH % 23.3 % (22.0-35.0); MEAN CELL VOLUME 89.6 fl (80.0-105.0); MEAN CORPUSCULAR HEMOGLOBIN 30.5 pg (25.0-35.0); MONO # 1.3 (0.1-0.6); MONO % 29.3 % (1.0-6.0); RBC 3.67 10^6/uL (3.5-6.1); RED CELL DISTRIBUTION WIDTH 15.9 % (11.5-14.5); WHITE BLOOD COUNT 4.3 10^3/uL (4.5-11.0)
[2018-07-21 07:08] LABS: INR 1.69; PROTHROMBIN TIME 19.1 SECONDS (9.4-12.5)
[2018-07-21 07:47] LABS: PLATELET COUNT 17 10^3/uL (120.0-450.0)
[2018-07-21] MEDS: Budesonide 0.5 mg/2 ml Inhal Susp UD IH SCH ×2 (08:05→20:02)
[2018-07-21] MEDS: Acetylcysteine 20% Inhal Soln (4ml) IH SCH ×2 (08:05→20:01)
[2018-07-21] MEDS: Levalbuterol 0.63 MG/3 ML Inhal Soln UD IH SCH ×3 (08:05→20:01)
[2018-07-21] MEDS: Pantoprazole 40 mg EC Tab PO SCH (08:20)
[2018-07-21 08:50] LABS: PLATELET COUNT MANUAL 20 K/mm3 (120-450)
[2018-07-21 08:51] LABS: ATYPICAL LYMPHOCYTE 2 % (0.0-0.0); LYMPHOCYTE 40 % (22.0-35.0); MONOCYTE 12 % (1.0-6.0); NEUTROPHIL 46 % (50.0-70.0)
[2018-07-21 08:52] LABS: ANISOCYTOSIS 1+; HYPOCHROMIA 1+; PLATELET ESTIMATE LOW (NORMAL); TOXIC GRANULATION 1+
--- NOTE | 2018-07-21 09:59 | CP.PCM.PN ---
Subjective - Date & Time of Evaluation Date of Evaluation: 07/21/18 Time of Evaluation: 06:40 - Subjective Subjective: Awake, alert, no distress Reason for consultation and follow up: Cardiac evaluation of chest pain Seen and examined by me and Dr. Escobar Objective - Vital Signs/Intake and Output Vital Signs (last 24 hours): Temp Pulse Resp BP Pulse Ox 97.5 F L 81 18 133/81 95 07/21/18 05:31 07/21/18 05:31 07/21/18 05:31 07/21/18 05:31 07/21/18 05:31 Intake and Output: 07/21/18 07/21/18 06:59 18:59 Intake Total 2812 Output Total 1280 Balance 1532 - Medications Medications: Current Medications Acetaminophen (Tylenol 325mg Tab) 650 mg PO Q6H PRN PRN Reason: Fever >100.4 F Last Admin: 07/17/18 11:32 Dose: 650 mg Acetylcysteine (Acetylcysteine 20%) 4 ml IH BIDRESP [facility] Last Admin: 07/21/18 08:05 Dose: 4 ml Atenolol (Tenormin) 25 mg PO BID [facility] Last Admin: 07/20/18 17:34 Dose: 25 mg Budesonide (Pulmicort Respules) 0.5 mg IH [id number] [facility] Last Admin: 07/21/18 08:05 Dose: 0.5 mg Doxycycline Hyclate (Doryx) 100 mg PO Q12 [facility]; Protocol Stop: 07/22/18 22:01 Last Admin: 07/20/18 21:04 Dose: 100 mg Dextrose/Sodium Chloride (Dextrose 5%/0.9% Ns 1000 Ml) 1,000 mls @ 75 mls/hr IV .[id number] [facility] Last Admin: 07/21/18 06:25 Dose: 75 mls/hr Meropenem (Merrem Iv 1 Gm Premix) 1 gm in 50 mls @ 100 mls/hr IVPB 0600,1800 [facility]; Protocol Stop: 07/24/18 22:01 Last Admin: 07/21/18 06:24 Dose: 100 mls/hr Levalbuterol HCl (Xopenex) 0.63 mg IH TIDRESP [facility] Last Admin: 07/21/18 08:05 Dose: 0.63 mg Methylprednisolone (Solu-Medrol) 40 mg IVP DAILY [facility] Nicotine (Nicoderm Cq) 1 patch TD DAILY [facility] Last Admin: 07/20/18 12:00 Dose: 1 patch Ondansetron HCl (Zofran Odt) 4 mg PO Q6H PRN PRN Reason: Nausea/Vomiting Last Admin: 07/21/18 08:20 Dose: 4 mg Pantoprazole Sodium (Protonix Ec Tab) 40 mg PO ACB [facility] Last Admin: 07/21/18 08:20 Dose: 40 mg - Labs Labs: 07/21/18 06:30 07/21/18 06:30 PT 19.1 SECONDS (9.4-12.5) H 07/21/18 06:30 INR 1.69 07/21/18 06:30 APTT 28.2 Seconds (26.9-38.3) 07/19/18 10:35 - Constitutional Appears: Non-toxic, No Acute Distress - Head Exam Head Exam: NORMAL INSPECTION, NORMOCEPHALIC - Eye Exam Eye Exam: Normal appearance Pupil Exam: NORMAL ACCOMODATION - ENT Exam ENT Exam: Mucous Membranes Moist, Normal Exam - Respiratory Exam Respiratory Exam: Decreased Breath Sounds, Clear to Ausculation Bilateral, NORMAL BREATHING PATTERN - Cardiovascular Exam Cardiovascular Exam: REGULAR RHYTHM, +S1, +S2 - GI/Abdominal Exam GI & Abdominal Exam: Soft, Normal Bowel Sounds - Extremities Exam Extremities Exam: Full ROM, Normal Capillary Refill - Neurological Exam Neurological Exam: Alert, Awake, Oriented x3 - Psychiatric Exam Psychiatric exam: Normal Affect, Normal Mood - Skin Skin Exam: Dry, Normal Color, Warm Assessment and Plan - Assessment and Plan (Free Text) Assessment: A 53 year old female who was admitted due to chest pain, fever, chills probably neutropenic sepsis. Chest pain muskuloskeletal in nature, no evidence of myocardial ischemia. History of right breast cancer, status post right lumpectomy in 2003, post lung cancer, post chemotherapy, recently diagnosed with leukemia. Echo done on 07/17/18 showed LVEF 45-50%, trace AR, moderate MR, mild to moderate TR, EVSP 31mmHg. No aspirin as patient has low platelet count.Chest X ray on admission showed bilateral bibasalar infiltrate. Being followed up by hematology. On Neutropenic precaution. On IV antibiotics per ID. Pulmonary on consult. Repeat Chest X ray showed no significant change on left and right lower lobe infiltrate. Cardiac status stable. Plan: No distress, Neutropenic precaution Heart rate and blood pressure stable Cardiac status stable Continue IV antibiotics as per ID On Tenormin 25 mg BID, Solumedrol 40 mg daily, Nicoderm patch daily Continue current treatment Continue current medications Will follow up Plan and treatment discussed with Dr. Escobar
[2018-07-21] MEDS: MethylPREDNISolone 40 mg Vial IVP SCH (10:00)
--- NOTE | 2018-07-21 10:09 | CP.PCM.PN ---
<Ji Loredo - Last Filed: 07/21/18 12:51> Subjective - Date & Time of Evaluation Date of Evaluation: 07/21/18 Time of Evaluation: 09:55 - Subjective Subjective: PGY4 GI fellow progress note Patient was lying in bed when seen this a.m. She states abdominal pain is stable and she is tolerating diet though she does report some decreased appetite. She reports flatus and bowel movements with the help of stool softeners. Await CT scan. Five-point review of systems negative other than stated above Objective - Vital Signs/Intake and Output Vital Signs (last 24 hours): Temp Pulse Resp BP Pulse Ox 97.5 F L 81 18 133/81 95 07/21/18 05:31 07/21/18 05:31 07/21/18 05:31 07/21/18 05:31 07/21/18 05:31 Intake and Output: 07/21/18 07/21/18 06:59 18:59 Intake Total 2812 Output Total 1280 Balance 1532 - Medications Medications: Current Medications Acetaminophen (Tylenol 325mg Tab) 650 mg PO Q6H PRN PRN Reason: Fever >100.4 F Last Admin: 07/17/18 11:32 Dose: 650 mg Acetylcysteine (Acetylcysteine 20%) 4 ml IH BIDRESP [facility] Last Admin: 07/21/18 08:05 Dose: 4 ml Atenolol (Tenormin) 25 mg PO BID [facility] Last Admin: 07/20/18 17:34 Dose: 25 mg Budesonide (Pulmicort Respules) 0.5 mg IH [id number] [facility] Last Admin: 07/21/18 08:05 Dose: 0.5 mg Doxycycline Hyclate (Doryx) 100 mg PO Q12 [facility]; Protocol Stop: 07/22/18 22:01 Last Admin: 07/20/18 21:04 Dose: 100 mg Dextrose/Sodium Chloride (Dextrose 5%/0.9% Ns 1000 Ml) 1,000 mls @ 75 mls/hr IV .[id number] [facility] Last Admin: 07/21/18 06:25 Dose: 75 mls/hr Meropenem (Merrem Iv 1 Gm Premix) 1 gm in 50 mls @ 100 mls/hr IVPB 0600,1800 [facility]; Protocol Stop: 07/24/18 22:01 Last Admin: 03/09/19 06:24 Dose: 100 mls/hr Levalbuterol HCl (Xopenex) 0.63 mg IH TIDRESP [facility] Last Admin: 07/21/18 08:05 Dose: 0.63 mg Methylprednisolone (Solu-Medrol) 40 mg IVP DAILY [facility] Nicotine (Nicoderm Cq) 1 patch TD DAILY [facility] Last Admin: 07/20/18 12:00 Dose: 1 patch Ondansetron HCl (Zofran Odt) 4 mg PO Q6H PRN PRN Reason: Nausea/Vomiting Last Admin: 07/21/18 08:20 Dose: 4 mg Pantoprazole Sodium (Protonix Ec Tab) 40 mg PO ACB [facility] Last Admin: 07/21/18 08:20 Dose: 40 mg - Labs Labs: 07/21/18 06:30 07/21/18 06:30 PT 19.1 SECONDS (9.4-12.5) H 07/21/18 06:30 INR 1.69 07/21/18 06:30 APTT 28.2 Seconds (26.9-38.3) 07/19/18 10:35 - Constitutional Appears: No Acute Distress, Chronically Ill - Head Exam Head Exam: ATRAUMATIC, NORMAL INSPECTION - Eye Exam Eye Exam: EOMI. absent: Scleral icterus - ENT Exam ENT Exam: Mucous Membranes Moist. absent: Mucous Membranes Dry - Respiratory Exam Respiratory Exam: NORMAL BREATHING PATTERN. absent: Accessory Muscle Use - GI/Abdominal Exam GI & Abdominal Exam: Distended (mildly), Soft, Tenderness (tender to palpation in right upper quadrant without guarding), Normal Bowel Sounds. absent: Bruit, Firm, Guarding, Rigid, Mass, Organomegaly, Pulsatile Mass Assessment and Plan - Assessment and Plan (Free Text) Assessment: # Acute abdominal pain: Unclear etiology of abnormal liver tests (h epatocellular) and liver function however she was very sick in the ICU previously and abnormalities can be associated with the sepsis or possibly a new hepatobiliary problem. Hopefully imaging will explain further. INR is elevated however she is not encephalopathic. She is on a few hepatotoxic medications. Continue to monitor, and keep a consideration. # Elevated liver enzymes # elevated INR # sickle cell # pneumonia, septic shock # COPD # myelodysplastic syndrome on chemotherapy # pancytopenia Plan: Abdominal ultrasound negative, though GB contracted -Abdominal/Pelvis CT with PO contrast -Obtain viral hep panel -Continue to monitor liver tests, INR -ID consulted: On Kyle and Doxy -Transfusions per hematology -No endoscopic evaluation planned at this time -Continue diet Case reviewed with Dr. Dela Cruz, see attestation <Efrem Dela Cruz V - Last Filed: 07/21/18 22:00> Objective - Vital Signs/Intake and Output Vital Signs (last 24 hours): Temp Pulse Resp BP Pulse Ox 97.9 F 83 20 144/80 95 07/21/18 12:00 07/21/18 18:00 07/21/18 12:00 07/21/18 17:46 07/21/18 05:31 Intake and Output: 07/21/18 07/22/18 18:59 07:59 Intake Total 1192 Balance 1192 - Medications Medications: Current Medications Acetaminophen (Tylenol 325mg Tab) 650 mg PO Q6H PRN PRN Reason: Fever >100.4 F Last Admin: 07/17/18 11:32 Dose: 650 mg Acetylcysteine (Acetylcysteine 20%) 4 ml IH BIDRESP [facility] Last Admin: 07/21/18 20:01 Dose: 4 ml Amlodipine Besylate (Norvasc) 2.5 mg PO DAILY [facility] Last Admin: 07/21/18 17:45 Dose: 2.5 mg Atenolol (Tenormin) 25 mg PO BID [facility] Last Admin: 07/21/18 17:46 Dose: 25 mg Budesonide (Pulmicort Respules) 0.5 mg IH [id number] [facility] Last Admin: 07/21/18 20:02 Dose: 0.5 mg Doxycycline Hyclate (Doryx) 100 mg PO Q12 [facility]; Protocol Stop: 07/22/18 22:01 Last Admin: 07/21/18 10:00 Dose: 100 mg Dextrose/Sodium Chloride (Dextrose 5%/0.9% Ns 1000 Ml) 1,000 mls @ 75 mls/hr IV .[id number] [facility] Last Admin: 07/21/18 06:25 Dose: 75 mls/hr Levalbuterol HCl (Xopenex) 0.63 mg IH TIDRESP [facility] Last Admin: 07/21/18 20:01 Dose: 0.63 mg Loperamide HCl (Imodium) 2 mg PO DAILY PRN PRN Reason: Diarrhea Last Admin: 07/21/18 13:33 Dose: 2 mg Methylprednisolone (Solu-Medrol) 40 mg IVP DAILY [facility] Last Admin: 07/21/18 10:00 Dose: 40 mg Nicotine (Nicoderm Cq) 1 patch TD DAILY [facility] Last Admin: 07/21/18 09:59 Dose: 1 patch Ondansetron HCl (Zofran Odt) 4 mg PO Q6H PRN PRN Reason: Nausea/Vomiting Last Admin: 07/21/18 08:20 Dose: 4 mg Oxycodone HCl (Oxycodone Immediate Release Tab) 5 mg PO Q6H PRN PRN Reason: Pain, severe (8-10) Last Admin: 07/21/18 21:32 Dose: 5 mg Pantoprazole Sodium (Protonix Ec Tab) 40 mg PO ACB [facility] Last Admin: 07/21/18 08:20 Dose: 40 mg - Labs Labs: 07/21/18 06:30 07/21/18 06:30 PT 19.1 SECONDS (9.4-12.5) H 07/21/18 06:30 INR 1.69 07/21/18 06:30 APTT 28.2 Seconds (26.9-38.3) 07/19/18 10:35 Attending/Attestation - Attestation I have personally seen and examined this patient.: Yes I have fully participated in the care of the patient.: Yes I have reviewed all pertinent clinical information, including history, physical exam and plan: Yes Notes (Text): This is an addendum to GI progress report dictated by the GI Fellow.The patient was seen and examined earlier. Medical records, lab studies, imagings were reviewed. Last 24 hours events reviewed. Agreed with the above treatment plan as outlined in GI Fellow 's notes with the addition of the following 07/21/18 22:00
--- NOTE | 2018-07-21 10:32 | PN ---
DATE: 07/21/2018 PULMONARY PROGRESS NOTE REFERRING PHYSICIAN: August Lara MD. SUBJECTIVE: The patient is seen lying in bed. No acute distress. Still has cough. Reports occasional shortness of breath. The patient reported that she is having sometime diarrhea this morning. Nursing staff reports the patient complained of constipation yesterday, was given Colace and MiraLax and then was noted with some loose stool. No vomiting. No hematuria. No leg pain or leg swelling reported. OBJECTIVE: GENERAL: No acute distress. VITAL SIGNS: Blood pressure 133/81, pulse 81, temperature 97.5, oxygen saturation 95% on room air. HEENT: Moist mucous membranes. Crowded airway. NECK: Supple. No JVD. LUNGS: Scattered rhonchi bilaterally. Few crackles. CARDIOVASCULAR: S1 and S2. ABDOMEN: Soft, nontender. No distention. No organomegaly. EXTREMITIES: No bilateral lower extremity edema. NEUROLOGIC: Awake, alert and verbal. Follows commands. MEDICATIONS: Reviewed. Tylenol 650 mg every 6 hours p.r.n. fever greater than 100.4, Mucomyst 4 mL inhalation twice a day, atenolol 25 mg twice a day, Pulmicort 0.5 mg every 12 hours, dextrose 5%, sodium chloride 0.9% in 1000 mL at 75 mL per hour, doxycycline 100 mg every 12 hours, Xopenex 0.63 mg inhalation three times a day, meropenem 1 g two times a day, Solu-Medrol 40 mg every 12 hours, nicotine patch transdermal daily, Zofran 4 mg every 6 hours p.r.n., and Protonix 40 mg in the morning. LABORATORY DATA: Reviewed. WBC 4.3, RBC 3.67, hemoglobin 11.2, hematocrit 32.9 and platelets 17. PT 19.1, INR 1.69. Sodium 142, potassium 4.4, chloride 111, carbon dioxide 25, anion gap 10, BUN 42, creatinine 0.8, GFR greater than 60, random glucose 145, calcium 9.1, phosphorous 3.1, magnesium 2.4, total bilirubin 2.1, AST 199, ALT 308, alkaline phosphatase 144, total protein 5.9, albumin 3.0, globulin 2.8 and albumin-globulin ratio 1.1. Blood cultures preliminary no growth after 4 days. Abdominal ultrasound shows hepatomegaly, common normal echo characteristics of the liver, no acute findings. No acute findings referable to the gallbladder incidental small right pleural effusion. IMPRESSION AND PLAN: Leukemia, chronic lung disease. The patient has been on chemotherapy, neutropenic, thrombocytopenia, sepsis, being treated for healthcare-associated infection, history of breast cancer, history of lung cancer. Continue antibiotics as per infectious disease. Continue inhaled bronchodilators. We will decrease Solu-Medrol to 40 mg daily. Supportive care. Hematology/Oncology followup. This patient was seen and examined with Dr. Maurer. Discussed assessment and plan as described above. This patient was seen and examined by Henry Marquez, nurse practitioner. Discussed assessment and plan as described above. Thank you for this consult and we will follow with you. Henry Marquez APN Solange Maurer MD JONAH
[2018-07-21] MEDS ORDERED: Iohexol 240 (50 ml) ONE (11:03)
--- NOTE | 2018-07-21 11:15 | PN ---
DATE: 07/21/2018 SUBJECTIVE: The patient is in bed, in no acute distress, nontoxic. PHYSICAL EXAMINATION: VITAL SIGNS: Temperature is 97, blood pressure is 130/80, respiratory rate of 18. HEENT: Unremarkable. NECK: Supple. LUNGS: Have decreased breath sounds. HEART: Normal S1, S2. ABDOMEN: Soft, nontender. LABORATORY DATA: White count of 2.5, hemoglobin of 8, BUN of 42, creatinine of 0.8. ASSESSMENT AND PLAN: This is a 53-year-old female admitted with septic shock, healthcare-associated pneumonia, neutropenic febrile patient, acute kidney injury, now doing much better on meropenem and doxycycline. The patient had an abdominal ultrasound yesterday with no acute findings and waiting for this morning's white count. We will follow with you. Terrance Juan MD
--- NOTE | 2018-07-21 15:59 | CT ---
Date of service: 07/21/2018 PROCEDURE: CT Abdomen and Pelvis with contrast HISTORY: right side abd pain COMPARISON: Contrast chest CT 07/16/2018. No prior abdomen and pelvis CT available for comparison. TECHNIQUE: Helical CT of the abdomen and pelvis was performed following oral contrast administration only. Intravenous contrast was not administered as per referring physician request. Coronal and sagittal reformats were generated. Contrast dose: None Radiation dose: Total exam DLP = 307.48 mGy-cm. This CT exam was performed using one or more of the following dose reduction techniques: Automated exposure control, adjustment of the mA and/or kV according to patient size, and/or use of iterative reconstruction technique. FINDINGS: LOWER THORAX: A moderate right pleural effusion is identified with a mild left pleural effusion. [id number] bullous changes are again seen in the periphery of the right lower lobe. Cardiomegaly is stable LIVER: Moderate hepatomegaly. A small sub cm lucency is stable at the anterior liver medial left and right lobe borders. 1.6 cm lucency is stable at the left lateral side of the dome once again. Trace right perihepatic ascites is noted. Unenhanced liver is otherwise unremarkable. GALLBLADDER AND BILE DUCTS: Fluid appears to surround a homogeneous appearing gallbladder are essentially the same density as the liver. This may reflect sludge filling the lumen of the gallbladder or large calculus in the gallbladder. Cholecystitis, of any timeframe, is not excluded. No gross CBD dilatation appreciable. Consider follow-up ultrasonography for added characterization. PANCREAS: Unremarkable. No gross lesion or ductal dilatation. SPLEEN: Unremarkable. ADRENALS: Unremarkable. No mass. KIDNEYS AND URETERS: Unremarkable. No hydronephrosis. No solid mass. VASCULATURE: Nonaneurysmal abdominal aortic calcific atherosclerotic changes are identified. BOWEL: The bowel is not obstructed. The majority of the left hemicolon is partially collapsed limit evaluation of the left colonic wall true thickness. Trace pericolic gutter fluid is identified. Segmental colitis is difficult to completely exclude, however, the patient's symptoms are right-sided and not left. APPENDIX: None identified. No definite pattern to suggest appendicitis. PERITONEUM: Mild gallbladder fossa/pericholecystic and inferior right perihepatic ascites. Limited pelvic ascites and left pericolic gutter fluid. No free air. LYMPH NODES: No significant lymphadenopathy identified. BLADDER: Bladder is nearly completely decompressed with wall thickness poorly evaluated. REPRODUCTIVE: Unremarkable. BONES: No acute fracture. OTHER FINDINGS: Heterogeneous changes at the inferior anterior abdominal wall subcutaneous fat may reflect recent instrumentation. Clinically correlate further. IMPRESSION: 1. Findings suspicious for acute cholecystitis. Follow-up abdomen ultrasonography advised or possible nuclear pattern biliary scan. 2. Potential left sided segmental colitis affecting left hemicolon though this segment of bowel is decompressed and is poorly evaluated. Left pericolic gutter fluid. Limited pelvic ascites may related to gallbladder fossa findings in impression 1. or potential segmental colitis. 3. Hepatomegaly. 4. Moderate right and mild left pleural effusions identified incidentally.
[2018-07-21] MEDS: oxyCODONE 5 mg Immediate Release Tab PO PRN (21:32)
--- NOTE | 2018-07-21 23:55 | PN ---
DATE: 07/20/2018 SUBJECTIVE: The patient was seen. She is still in isolation for neutropenic sepsis. She has no chest pain. She is still coughing, but she seems afebrile. PHYSICAL EXAMINATION: VITAL SIGNS: Temperature is 97.8, heart rate 84, blood pressure 157/93, respirations 20, oxygen saturation 98%. HEAD AND NECK: Normal. No JVD. No thyromegaly. CHEST: Few rhonchi, otherwise, clear. CARDIAC: First sound and second sound normal. ABDOMEN: Soft, nontender. EXTREMITIES: No edema. NEUROLOGIC: Normal. LABORATORY DATA: The patient's laboratory study: White count 2.5, hemoglobin 8, hematocrit 23, platelets 10. Chemistry shows sodium 144, potassium 3.4, chloride 110, bicarb 27, BUN 42, creatinine 0.9. Liver enzymes are improving. AST 152, ALT 213, alk phos is normal. IMPRESSION AND PLAN: 1. Neutropenic sepsis. The patient is getting intravenous antibiotics as per Infectious Disease consult. She is getting doxycycline and Merrem, seems doing well. 2. The patient has pancytopenia, using stimulating factors for white cells. She is getting platelet transfusions, blood transfusions. Continue hematological support as per Dr. Lopez. 3. Chronic obstructive pulmonary disease. Continue Solu-Medrol, inhaled bronchodilators, intravenous antibiotics, Mucomyst, seems doing better. Continue current therapy. 4. Hypertension. She is currently on Tenormin 25 b.i.d., continue that. Monitor blood pressure. Discussed with her daughter. Continue current therapy. Follow up clinically. Prognosis is guarded. August aLra MD
--- NOTE | 2018-07-22 00:34 | PN ---
DATE: 07/21/2018 SUBJECTIVE: The patient seems better, comfortable. She is on isolation now. No chest pain. No fever and seems better. PHYSICAL EXAMINATION: VITAL SIGNS: As follows: Temperature is 98, heart rate 84, blood pressure 135/95, respirations 20. HEAD AND NECK: Normal. No JVD. No thyromegaly. CHEST: Clear bilaterally. CARDIAC: First sound and second sound normal. No murmur, rub, or gallop. ABDOMEN: Soft, nontender. EXTREMITIES: No edema. NEUROLOGIC: Normal. LABORATORY DATA: Laboratory study shows as follows: Sodium 142, potassium 4.4, chloride 111, bicarb 25, BUN 42, creatinine 0.8. Liver function test, magnesium 2.4, bilirubin 2.1, AST 199, ALT 308, alk phos is 144. IMPRESSION AND PLAN: 1. Neutropenic sepsis. Continue Merrem plus doxycycline. She is doing better. 2. The patient has pancytopenia secondary to previous chemotherapy. Continue bone marrow support transfusion. She is colony-stimulating factors. We will continue current treatment as per fresh foods technician, Dr. Lopez, discussed with him. 3. Pneumonia, community-acquired, neutropenic patient, immunosuppressed patient. Continue current antibiotics. 4. Chronic obstructive pulmonary disease. Continue Solu-Medrol tapering dose, Dr. Maurer on the case. Currently on small dose of Solu-Medrol once a day 40 and Mucomyst and inhaled bronchodilators. 5. Hypertension. Tachycardia. She is stable on Tenormin 25 b.i.d. We will give Norvasc 2.5 mg once a day. We will monitor blood pressure slowly. Continue current therapy. We will follow up clinically. Continue Protonix 40. August Lara MD
[2018-07-22] MEDS: Dextrose 5%/0.9% NS 1,000 ML IV SCH ×3 (06:28→21:48)
[2018-07-22 06:59] LABS: BASO # 0.03 K/mm3 (0.0-2.0); BASO % 0.5 % (0.0-3.0); EOS # 0.1 (0.0-0.7); EOS % 1.7 % (1.5-5.0); HEMOGLOBIN 10.9 g/dL (12.0-16.0); LYMPH # 2.4 (1.2-3.4); LYMPH % 35.6 % (22.0-35.0); MEAN CELL VOLUME 89.9 fl (80.0-105.0); MEAN CORPUSCULAR HEMOGLOBIN 30.5 pg (25.0-35.0); MONO # 1.5 (0.1-0.6); RBC 3.57 10^6/uL (3.5-6.1); RED CELL DISTRIBUTION WIDTH 15.7 % (11.5-14.5); WHITE BLOOD COUNT 6.7 10^3/uL (4.5-11.0)
[2018-07-22 07:08] LABS: PLATELET COUNT 8 10^3/uL (120.0-450.0)
--- NOTE | 2018-07-22 07:09 | CP.PCM.PN ---
Subjective - Date & Time of Evaluation Date of Evaluation: 07/22/18 Time of Evaluation: 10:10 - Subjective Subjective: PGY-4 Gi Fellow Prog Note Pt lying in bed when seen this AM. States abd pain stable, but chain tender to touch. Tolerating diet some but not with best appetite. 5 point ROS negative other than stated above Objective - Vital Signs/Intake and Output Vital Signs (last 24 hours): Temp Pulse Resp BP Pulse Ox 97.5 F L 81 18 133/81 95 07/22/18 04:52 07/22/18 04:52 07/22/18 04:52 07/22/18 04:52 07/22/18 04:52 Intake and Output: 07/22/18 07/22/18 06:59 18:59 Intake Total Output Total Balance - Medications Medications: Current Medications Acetaminophen (Tylenol 325mg Tab) 650 mg PO Q6H PRN PRN Reason: Fever >100.4 F Last Admin: 07/17/18 11:32 Dose: 650 mg Acetylcysteine (Acetylcysteine 20%) 4 ml IH BIDRESP [facility] Last Admin: 07/21/18 20:01 Dose: 4 ml Amlodipine Besylate (Norvasc) 2.5 mg PO DAILY [facility] Last Admin: 07/21/18 17:45 Dose: 2.5 mg Atenolol (Tenormin) 25 mg PO BID [facility] Last Admin: 07/21/18 17:46 Dose: 25 mg Budesonide (Pulmicort Respules) 0.5 mg IH [id number] [facility] Last Admin: 07/21/18 20:02 Dose: 0.5 mg Doxycycline Hyclate (Doryx) 100 mg PO Q12 [facility]; Protocol Stop: 07/22/18 22:01 Last Admin: 07/22/18 01:23 Dose: 100 mg Dextrose/Sodium Chloride (Dextrose 5%/0.9% Ns 1000 Ml) 1,000 mls @ 75 mls/hr IV .[id number] [facility] Last Admin: 07/22/18 06:28 Dose: 75 mls/hr Levalbuterol HCl (Xopenex) 0.63 mg IH TIDRESP [facility] Last Admin: 07/21/18 20:01 Dose: 0.63 mg Loperamide HCl (Imodium) 2 mg PO DAILY PRN PRN Reason: Diarrhea Last Admin: 07/21/18 13:33 Dose: 2 mg Methylprednisolone (Solu-Medrol) 40 mg IVP DAILY [facility] Last Admin: 07/21/18 10:00 Dose: 40 mg Nicotine (Nicoderm Cq) 1 patch TD DAILY [facility] Last Admin: 07/21/18 09:59 Dose: 1 patch Ondansetron HCl (Zofran Odt) 4 mg PO Q6H PRN PRN Reason: Nausea/Vomiting Last Admin: 07/21/18 08:20 Dose: 4 mg Oxycodone HCl (Oxycodone Immediate Release Tab) 5 mg PO Q6H PRN PRN Reason: Pain, severe (8-10) Last Admin: 07/21/18 21:32 Dose: 5 mg Pantoprazole Sodium (Protonix Ec Tab) 40 mg PO ACB [facility] Last Admin: 07/21/18 08:20 Dose: 40 mg - Labs Labs: 07/22/18 06:10 07/21/18 06:30 PT 19.1 SECONDS (9.4-12.5) H 07/21/18 06:30 INR 1.69 07/21/18 06:30 APTT 28.2 Seconds (26.9-38.3) 07/19/18 10:35 - Constitutional Appears: No Acute Distress, Chronically Ill - Head Exam Head Exam: ATRAUMATIC, NORMAL INSPECTION - Eye Exam Eye Exam: EOMI. absent: Scleral icterus - ENT Exam ENT Exam: Mucous Membranes Moist. absent: Mucous Membranes Dry - Respiratory Exam Respiratory Exam: NORMAL BREATHING PATTERN. absent: Accessory Muscle Use - GI/Abdominal Exam GI & Abdominal Exam: Soft, Tenderness (ttp in RUQ w/vol guarding), Normal Bowel Sounds. absent: Bruit, Distended, Firm, Guarding, Rigid, Mass Assessment and Plan - Assessment and Plan (Free Text) Assessment: # Acute abdominal pain: Unclear etiology of abnormal liver tests (hepatocellular) and liver function however she was very sick in the ICU previ ously and abnormalities can be associated with the sepsis or possibly a new hepatobiliary problem. INR is elevated however she is not encephalopathic. She is on a few hepatotoxic medications. Continue to monitor, and keep a consideration. CT with possible cholecystitis # Elevated liver enzymes # elevated INR # sickle cell # pneumonia, septic shock # COPD # myelodysplastic syndrome on chemotherapy # pancytopenia Plan: -Abdominal/Pelvis CT with PO contrast: Suspicious for cholecystitis, on Kyle+Doxy per ID -Check HIDA and consult Gen Surg Abdominal ultrasound negative, though GB contracted -Obtain viral hep panel -Continue to monitor liver tests, INR -ID consulted: On Kyle and Doxy -Transfusions per hematology -No endoscopic evaluation planned at this time -Clear Liq diet Case reviewed with Dr. Dela Cruz, see attestation
[2018-07-22] MEDS: Budesonide 0.5 mg/2 ml Inhal Susp UD IH SCH ×2 (07:33→20:44)
[2018-07-22] MEDS: Acetylcysteine 20% Inhal Soln (4ml) IH SCH ×2 (07:33→20:43)
[2018-07-22] MEDS: Levalbuterol 0.63 MG/3 ML Inhal Soln UD IH SCH ×3 (07:34→20:44)
[2018-07-22 07:46] LABS: ALBUMIN 2.6 g/dL (3.0-4.8); ALT/SGPT 229 U/L (7-56); AST/SGOT 88 U/L (14-36); BLOOD UREA NITROGEN 41 mg/dL (7-21); CALCIUM 8.7 mg/dL (8.4-10.5); GFR NON-AFRICAN AMERICAN > 60
[2018-07-22] MEDS: Pantoprazole 40 mg EC Tab PO SCH (08:23)
[2018-07-22 09:01] LABS: PLATELET COUNT MANUAL 10 K/mm3 (120-450)
[2018-07-22 09:02] LABS: PLATELET ESTIMATE LOW (NORMAL)
--- NOTE | 2018-07-22 09:05 | CP.PCM.PN ---
Subjective - Date & Time of Evaluation Date of Evaluation: 07/22/18 Time of Evaluation: 06:55 - Subjective Subjective: Awake, alert, no distress Reason for consultation and follow up: Cardiac evaluation of chest pain Seen and examined by me and Dr. Escobar Objective - Vital Signs/Intake and Output Vital Signs (last 24 hours): Temp Pulse Resp BP Pulse Ox 97.5 F L 81 18 133/81 95 07/22/18 04:52 07/22/18 04:52 07/22/18 04:52 07/22/18 04:52 07/22/18 04:52 Intake and Output: 07/22/18 07/22/18 06:59 18:59 Intake Total Output Total Balance - Medications Medications: Current Medications Acetaminophen (Tylenol 325mg Tab) 650 mg PO Q6H PRN PRN Reason: Fever >100.4 F Last Admin: 07/17/18 11:32 Dose: 650 mg Acetylcysteine (Acetylcysteine 20%) 4 ml IH BIDRESP [facility] [place] Last Admin: 07/22/18 07:33 Dose: 4 ml Amlodipine Besylate (Norvasc) 2.5 mg PO DAILY [facility] [place] Last Admin: 07/21/18 17:45 Dose: 2.5 mg Atenolol (Tenormin) 25 mg PO BID [facility] [place] Last Admin: 07/21/18 17:46 Dose: 25 mg Budesonide (Pulmicort Respules) 0.5 mg IH [id number] [facility] [place] Last Admin: 07/22/18 07:33 Dose: 0.5 mg Doxycycline Hyclate (Doryx) 100 mg PO Q12 [facility] [place]; Protocol Stop: 07/22/18 22:01 Last Admin: 07/22/18 01:23 Dose: 100 mg Dextrose/Sodium Chloride (Dextrose 5%/0.9% Ns 1000 Ml) 1,000 mls @ 75 mls/hr IV .[id number] [facility] [place] Last Admin: 07/22/18 07:31 Dose: Not Given Levalbuterol HCl (Xopenex) 0.63 mg IH TIDRESP [facility] [place] Last Admin: 07/22/18 07:34 Dose: 0.63 mg Loperamide HCl (Imodium) 2 mg PO DAILY PRN PRN Reason: Diarrhea Last Admin: 07/21/18 13:33 Dose: 2 mg Methylprednisolone (Solu-Medrol) 40 mg IVP DAILY [facility] [place] Last Admin: 07/21/18 10:00 Dose: 40 mg Nicotine (Nicoderm Cq) 1 patch TD DAILY [facility] Last Admin: 07/21/18 09:59 Dose: 1 patch Ondansetron HCl (Zofran Odt) 4 mg PO Q6H PRN PRN Reason: Nausea/Vomiting Last Admin: 07/22/18 08:23 Dose: 4 mg Oxycodone HCl (Oxycodone Immediate Release Tab) 5 mg PO Q6H PRN PRN Reason: Pain, severe (8-10) Last Admin: 07/21/18 21:32 Dose: 5 mg Pantoprazole Sodium (Protonix Ec Tab) 40 mg PO ACB [facility] Last Admin: 07/22/18 08:23 Dose: 40 mg - Labs Labs: 07/22/18 06:10 07/22/18 06:10 PT 19.1 SECONDS (9.4-12.5) H 07/21/18 06:30 INR 1.69 07/21/18 06:30 APTT 28.2 Seconds (26.9-38.3) 07/19/18 10:35 - Constitutional Appears: Non-toxic, No Acute Distress - Head Exam Head Exam: NORMAL INSPECTION, NORMOCEPHALIC - Eye Exam Eye Exam: Normal appearance Pupil Exam: NORMAL ACCOMODATION - ENT Exam ENT Exam: Mucous Membranes Moist, Normal Exam - Respiratory Exam Respiratory Exam: Decreased Breath Sounds, Clear to Ausculation Bilateral, NORMAL BREATHING PATTERN - Cardiovascular Exam Cardiovascular Exam: REGULAR RHYTHM, +S1, +S2 - GI/Abdominal Exam GI & Abdominal Exam: Soft, Normal Bowel Sounds - Extremities Exam Extremities Exam: Full ROM, Normal Capillary Refill - Neurological Exam Neurological Exam: Alert, Awake, Oriented x3 - Psychiatric Exam Psychiatric exam: Normal Affect, Normal Mood - Skin Skin Exam: Dry, Normal Color, Warm Assessment and Plan - Assessment and Plan (Free Text) Assessment: A 53 year old female who was admitted due to chest pain, fever, chills probably neutropenic sepsis. Chest pain muskuloskeletal in nature, no evidence of myocardial ischemia. History of right breast cancer, status post right lumpectomy in 2003, post lung cancer, post chemotherapy, recently diagnosed with leukemia. Echo done on 07/17/18 showed LVEF 45-50%, trace AR, moderate MR, mild to moderate TR, EVSP 31mmHg. No aspirin as patient has low platelet count.Chest X ray on admission showed bilateral bibasalar infiltrate. Being followed up by hematology/oncology. On IV antibiotics per ID. Pulmonary on consult. Repeat Chest X ray showed no significant change on left and right lower lobe infiltrate. Off Neutropenic precaution, afebrile, low platelet. Cardiac status stable, discontinue telemetry. Plan: No distress,feels okay Off Neutropenic precaution Heart rate and blood pressure stable Will discontinue telemetry Cardiac status stable Continue IV antibiotics as per ID On Tenormin 25 mg BID, Solumedrol 40 mg daily, Nicoderm patch daily Continue current treatment Continue current medications Nutritional support H/H stable, low platelet Followed up by Oncology/hematology Will follow up Plan and treatment discussed with Dr. Escobar
[2018-07-22] MEDS: oxyCODONE 5 mg Immediate Release Tab PO PRN ×2 (09:24→17:34)
[2018-07-22] MEDS: MethylPREDNISolone 40 mg Vial IVP SCH (09:25)
--- NOTE | 2018-07-22 12:13 | PN ---
DATE: 07/22/2018 SUBJECTIVE: The patient seen in room 276, bed 2. She had some loose bowel movements last night. She is doing well. No fevers, no chills and the bowel movements have improved. PHYSICAL EXAMINATION: VITAL SIGNS: Temperature is 97, blood pressure is 130/80, respiratory rate of 18. HEENT: Unremarkable. NECK: Supple. LUNGS: Have decreased breath sounds. HEART: Normal S1, S2. ABDOMEN: Soft. LABORATORY DATA: White count of 6.7, hemoglobin of 10 and the chemistries reveals a BUN of 41, creatinine of 0.8 and procalcitonin is noted. Urinalysis is noted, serology is noted. Blood cultures are negative. The patient is also on Solu-Medrol. ASSESSMENT AND PLAN: This is a 53-year-old female seen earlier today. She is doing well, much improved, initially admitted with septic shock, healthcare-associated pneumonia, neutropenic febrile state with acute kidney injury, now neutropenia is resolved and the ultrasound of the abdomen is negative. We will discontinue the antibiotics. We will check a stool for Clostridium difficile, no isolation is necessary, and we will discontinue the doxycycline and meropenem. We will follow with you. Terrance Juan MD
--- NOTE | 2018-07-22 13:46 | CP.PCM.CON ---
History of Present Illness - History of Present Illness History of Present Illness: Surgery Consult Note. Dr. Evans 53yo F with PMHx of Myelodysplastic Syndrome, Leukemia on Chemo, Sickel Cell, COPD here for evaluation and treatment of pneumonia. Patient started c/o right sided abdominal pain which started 3 days ago. Denies any associated nausea or vomiting. Denies any fevers or chills. Still reports productive cough. States that the abdominal pain has improved slightly since its onset. Denies any diarrhea. Has been having regular bowel movements. Denies any urinary complaints. Abd CT with perihepatic small ascites, GB sludge. Abd US without any GB wall thickening, no GB stones. no acute GB pathology. PMHx: Myelodysplastic Syndrome, Leukemia on Chemo, Sickel Cell, COPD PSHx: Lumpectomy (states benign path), Tonsillectomy Family Hx: Mother: Gastric/Pancreatic CA Social Hx: Former Smoker; Denies ETOH; Denies illicit drugs NKDA Review of Systems - Review of Systems All systems: reviewed and no additional remarkable complaints except - Constitutional Constitutional: Anorexia, Malaise, Weight Loss. absent: Chills, Fever - Cardiovascular Cardiovascular: absent: Chest Pain, Dyspnea - Respiratory Respiratory: Cough - Gastrointestinal Gastrointestinal: Abdominal Pain. absent: Diarrhea, Hematemesis, Hematochezia, Nausea, Vomiting - Genitourinary Genitourinary: absent: Dysuria - Musculoskeletal Musculoskeletal: absent: Back Pain - Neurological Neurological: absent: Confusion, Dizziness, Focal Weakness - Psychiatric Psychiatric: absent: Anxiety Past Patient History - Infectious Disease Hx of Infectious Diseases: None - Tetanus Immunizations Tetanus Immunization: Unknown - Past Social History Smoking Status: Former Smoker Alcohol: None Drugs: Denies - CARDIAC Hx Pacemaker: No - PULMONARY Hx Chronic Obstructive Pulmonary Disease (COPD): Yes - NEUROLOGICAL Hx Neurological Disorder: No - HEENT Hx HEENT Problems: No - RENAL Other/Comment: "englarged kidney" - ENDOCRINE/METABOLIC Hx Endocrine Disorders: No - HEMATOLOGICAL/ONCOLOGICAL Hx Cancer: Yes (right breast CA) - INTEGUMENTARY Hx Dermatological Problems: No - MUSCULOSKELETAL/RHEUMATOLOGICAL Hx Musculoskeletal Disorders: No - GASTROINTESTINAL Hx Gastrointestinal Disorders: Yes (CONSTIPATION,WEIGHT LOSS 14 LBS .) - GENITOURINARY/GYNECOLOGICAL Hx Genitourinary Disorders: No - PSYCHIATRIC Hx Depression: Yes Hx Substance Use: No - SURGICAL HISTORY Hx Mastectomy: No - ANESTHESIA Hx Anesthesia: Yes Hx Anesthesia Reactions: No Hx Malignant Hyperthermia: No Meds Allergies/Adverse Reactions: Allergies Allergy/AdvReac Type Severity Reaction Status Date / Time No Known Allergies Allergy Verified 07/16/18 14:33 - Medications Medications: Current Medications Acetaminophen (Tylenol 325mg Tab) 650 mg PO Q6H PRN PRN Reason: Fever >100.4 F Last Admin: 07/17/18 11:32 Dose: 650 mg Acetylcysteine (Acetylcysteine 20%) 4 ml IH BIDRESP [facility] Last Admin: 07/22/18 07:33 Dose: 4 ml Amlodipine Besylate (Norvasc) 2.5 mg PO DAILY [facility] Last Admin: 07/22/18 09:25 Dose: 2.5 mg Atenolol (Tenormin) 25 mg PO BID [facility] Last Admin: 07/22/18 09:25 Dose: 25 mg Budesonide (Pulmicort Respules) 0.5 mg IH [id number] [facility] Last Admin: 07/22/18 07:33 Dose: 0.5 mg Dextrose/Sodium Chloride (Dextrose 5%/0.9% Ns 1000 Ml) 1,000 mls @ 75 mls/hr IV .[id number] [facility] Last Admin: 07/22/18 07:31 Dose: Not Given Levalbuterol HCl (Xopenex) 0.63 mg IH TIDRESP [facility] Last Admin: 07/22/18 13:28 Dose: 0.63 mg Loperamide HCl (Imodium) 2 mg PO DAILY PRN PRN Reason: Diarrhea Last Admin: 07/21/18 13:33 Dose: 2 mg Methylprednisolone (Solu-Medrol) 40 mg IVP DAILY [facility] Last Admin: 07/22/18 09:25 Dose: 40 mg Nicotine (Nicoderm Cq) 1 patch TD DAILY [facility] Last Admin: 07/22/18 09:25 Dose: 1 patch Ondansetron HCl (Zofran Odt) 4 mg PO Q6H PRN PRN Reason: Nausea/Vomiting Last Admin: 07/22/18 08:23 Dose: 4 mg Oxycodone HCl (Oxycodone Immediate Release Tab) 5 mg PO Q6H PRN PRN Reason: Pain, severe (8-10) Last Admin: 07/22/18 09:24 Dose: 5 mg Pantoprazole Sodium (Protonix Ec Tab) 40 mg PO ACB [facility] Last Admin: 07/22/18 08:23 Dose: 40 mg Physical Exam - Constitutional Appears: Non-toxic, No Acute Distress - Head Exam Head Exam: ATRAUMATIC, NORMAL INSPECTION, NORMOCEPHALIC - Eye Exam Eye Exam: EOMI, Normal appearance. absent: Scleral icterus - ENT Exam ENT Exam: Mucous Membranes Moist - Respiratory Exam Respiratory Exam: NORMAL BREATHING PATTERN. absent: Accessory Muscle Use, Respiratory Distress - Cardiovascular Exam Cardiovascular Exam: RRR. absent: JVD - GI/Abdominal Exam GI & Abdominal Exam: Soft. absent: Distended, Firm, Guarding, Rebound, Rigid Additional comments: Mild RUQ tenderness. No peritoneal signs. - Extremities Exam Extremities exam: Positive for: normal inspection. Negative for: calf tenderness - Back Exam Back exam: NORMAL INSPECTION - Neurological Exam Neurological exam: Alert, Oriented x3 - Psychiatric Exam Psychiatric exam: Normal Affect, Normal Mood - Skin Skin Exam: Dry, Intact, Normal Color, Warm Results - Vital Signs Recent Vital Signs: Last Vital Signs Temp 97.7 F 07/22/18 12:00 Pulse 78 07/22/18 12:00 Resp 18 07/22/18 12:00 BP 124/74 07/22/18 12:00 Pulse Ox 95 07/22/18 04:52 - Labs Result Diagrams: 07/22/18 06:10 07/22/18 06:10 Labs: Laboratory Results - last 24 hr 07/22/18 07/22/18 06:10 06:10 WBC 6.7 D RBC 3.57 Hgb 10.9 L Hct 32.1 L MCV 89.9 MCH 30.5 MCHC 34.0 RDW 15.7 H Plt Count 8 L* Manual Plt Count 10 L* Neut % (Auto) 39.2 L Lymph % (Auto) 35.6 H [place] % (Auto) 23.0 H Eos % (Auto) 1.7 Baso % (Auto) 0.5 Lymph # (Auto) 2.4 [place] # (Auto) 1.5 H Eos # (Auto) 0.1 Baso # (Auto) 0.03 Absolute Neuts (auto) 2.61 Platelet Evaluation Low Sodium 139 Potassium 4.3 Chloride 108 H Carbon Dioxide 26 Anion Gap 9 L BUN 41 H Creatinine 0.8 Est GFR ( Amer) > 60 Est GFR (Non-Af Amer) > 60 Random Glucose 113 H Calcium 8.7 Phosphorus 2.4 L Magnesium 2.2 Total Bilirubin 1.4 H AST 88 H D ALT 229 H Alkaline Phosphatase 128 H Total Protein 5.3 L Albumin 2.6 L Globulin 2.7 Albumin/Globulin Ratio 1.0 L Assessment & Plan - Assessment and Plan (Free Text) Assessment: 53yo F with PMHx of Leukemia on chemo, MDS, Sickel Cell, COPD here for tx of pneumonia. Surgery consulted for RUQ abd pain - Abd US noted, No acute gallbladder pathology noted. - Abd/Pelvis CT noted with gallbladder sludge, mild perihepatic ascites - Severe Thrombocytopenia Plan: - f/u GI recs - No acute surgical intervention warranted at this time - Patient's clinical symptoms are likely not associated to GB pathology - Pain management - Medical mgmt as per Primary and Heme/Onc team recs Further recs as per Dr. Nathan Forrest PGY2 surgery
--- NOTE | 2018-07-22 15:41 | PN ---
DATE: 07/22/2018 PULMONARY PROGRESS NOTE REFERRING PHYSICIAN: August Lara MD. SUBJECTIVE: The patient is seen lying in bed. Head of bed elevated. No acute distress. No overnight events reported. The patient reports feeling better this morning. No headaches, rhinitis, chest pain, abdominal pain, nausea, vomiting, diarrhea, leg pain or leg swelling reported. The patient reports that she still does have cough. OBJECTIVE: GENERAL: No acute distress. VITAL SIGNS: Blood pressure 133/81, pulse 81, temperature 97.5 and oxygen saturation 95% on nasal cannula. HEENT: Moist mucous membranes. Crowded airway. NECK: Supple. No JVD. LUNGS: Scattered rhonchi bilaterally. CARDIOVASCULAR: S1 and S2. ABDOMEN: Soft and nontender. No distention. No organomegaly. EXTREMITIES: No bilateral lower extremity edema. NEUROLOGIC: Awake, alert and verbal. Follows commands. MEDICATIONS: Reviewed. Tylenol 650 mg every 6 hours p.r.n. fever greater than 100.4, Mucomyst inhalation twice a day, Norvasc 2.5 mg daily, atenolol 25 mg twice a day, Pulmicort 0.5 mg every 12 hours, dextrose 5%, sodium chloride 0.9% in 1000 mL at 75 mL per hour, Xopenex 0.63 mg inhalation three times a day, Imodium 2 mg daily p.r.n., Solu-Medrol 40 mg IV push daily, nicotine patch transdermal daily, Zofran 4 mg every 6 hours p.r.n., oxycodone 5 mg every 6 hours p.r.n. and Protonix 20 mg daily. LABORATORY DATA: WBC 6.7, RBC 3.57, hemoglobin 10.9, hematocrit 32.1 and platelets 8. Sodium 139, potassium 4.3, chloride 108, carbon dioxide 26, anion gap 9, BUN 41, creatinine 0.8, GFR greater than 60, random glucose 113, calcium 8.7, phosphorous 2.4, magnesium 2.2, total bilirubin 1.4, AST 88, ALT 229, alkaline phosphatase 128, total protein 5.3, albumin 2.6, globulin 2.7 and albumin-globulin ratio 1.0. IMPRESSION AND PLAN: Leukemia and chronic lung disease. The patient was on chemotherapy, neutropenia which has since resolved, thrombocytopenia and sepsis. The patient was being treated for healthcare-associated infection. The patient has history of breast cancer and history of lung cancer. Infectious disease appreciated. The patient will be discontinued from antibiotic as per Infectious Disease. Pulmonary point of view, continue inhaled bronchodilators, continue current steroid dosage at this time, supportive care. We will order chest physiotherapy to be done as the patient still with cough and some congestion. We will order swallow evaluation to rule out aspiration. The patient would benefit from physical therapy, out of bed to chair. This patient was seen and examined with Dr. Maurer. Discussed assessment and plan as described above. This patient was seen and examined by Henry Marquez, nurse practitioner. Discussed assessment and plan as described above. Thank you for this consult and we will follow with you. Henry Marquez APN Solange Maurer MD
[2018-07-23 07:01] LABS: BASO # 0.01 K/mm3 (0.0-2.0); BASO % 0.1 % (0.0-3.0); EOS # 0.1 (0.0-0.7); EOS % 1.5 % (1.5-5.0); LYMPH # 2.5 (1.2-3.4); LYMPH % 36.7 % (22.0-35.0); MEAN CELL VOLUME 91.8 fl (80.0-105.0); MEAN CORPUSCULAR HEMOGLOBIN 30.4 pg (25.0-35.0); MEAN CORPUSCULAR HGB CONC 33.1 g/dl (31.0-37.0); MONO # 1.4 (0.1-0.6); RBC 3.29 10^6/uL (3.5-6.1); RED CELL DISTRIBUTION WIDTH 15.8 % (11.5-14.5); WHITE BLOOD COUNT 6.8 10^3/uL (4.5-11.0)
[2018-07-23 07:02] LABS: ALBUMIN 2.5 g/dL (3.0-4.8); ALT/SGPT 175 U/L (7-56); AST/SGOT 57 U/L (14-36); BLOOD UREA NITROGEN 32 mg/dL (7-21); CALCIUM 8.3 mg/dL (8.4-10.5); GFR NON-AFRICAN AMERICAN > 60
[2018-07-23 07:27] LABS: PLATELET COUNT 18 10^3/uL (120.0-450.0)
[2018-07-23] MEDS: Levalbuterol 0.63 MG/3 ML Inhal Soln UD IH SCH ×3 (07:40→20:13)
[2018-07-23] MEDS: Acetylcysteine 20% Inhal Soln (4ml) IH SCH ×2 (07:40→20:13)
[2018-07-23] MEDS: Budesonide 0.5 mg/2 ml Inhal Susp UD IH SCH ×2 (07:40→20:13)
[2018-07-23 07:52] LABS: HEPATITIS B SURFACE AG Negative (NEGATIVE)
--- NOTE | 2018-07-23 07:52 | CP.PCM.PN ---
Subjective - Date & Time of Evaluation Date of Evaluation: 07/23/18 Time of Evaluation: 06:45 - Subjective Subjective: Awake, alert, had mild short of breath without oxygen Reason for consultation and follow up: Cardiac evaluation of chest pain, admit bri for neutropenic sepsis recently diagnosed with leukemia. History of right breast cancer, status post right lumpectomy in 2003, post lung cancer, post chemotherapy. Seen and examined by me and Dr. Langley Objective - Vital Signs/Intake and Output Vital Signs (last 24 hours): Temp Pulse Resp BP Pulse Ox 97.8 F 77 20 147/76 94 L 07/23/18 00:01 07/23/18 02:00 07/23/18 00:01 07/23/18 00:01 07/23/18 00:01 Intake and Output: 07/23/18 07/23/18 06:59 18:59 Intake Total 240 Output Total 200 Balance 40 - Medications Medications: Current Medications Acetaminophen (Tylenol 325mg Tab) 650 mg PO Q6H PRN PRN Reason: Fever >100.4 F Last Admin: 07/17/18 11:32 Dose: 650 mg Acetylcysteine (Acetylcysteine 20%) 4 ml IH BIDRESP [facility] Last Admin: 07/22/18 20:43 Dose: 4 ml Amlodipine Besylate (Norvasc) 2.5 mg PO DAILY [facility] Last Admin: 07/22/18 09:25 Dose: 2.5 mg Atenolol (Tenormin) 25 mg PO BID [facility] Last Admin: 07/22/18 17:27 Dose: 25 mg Budesonide (Pulmicort Respules) 0.5 mg IH [id number] [facility] Last Admin: 07/22/18 20:44 Dose: 0.5 mg Dextrose/Sodium Chloride (Dextrose 5%/0.9% Ns 1000 Ml) 1,000 mls @ 75 mls/hr IV .[id number] [facility] Last Admin: 07/22/18 21:48 Dose: 75 mls/hr Levalbuterol HCl (Xopenex) 0.63 mg IH TIDRESP [facility] Last Admin: 07/22/18 20:44 Dose: 0.63 mg Loperamide HCl (Imodium) 2 mg PO DAILY PRN PRN Reason: Diarrhea Last Admin: 07/21/18 13:33 Dose: 2 mg Methylprednisolone (Solu-Medrol) 40 mg IVP DAILY [facility] Last Admin: 07/22/18 09:25 Dose: 40 mg Nicotine (Nicoderm Cq) 1 patch TD DAILY [facility] Last Admin: 07/22/18 09:25 Dose: 1 patch Ondansetron HCl (Zofran Odt) 4 mg PO Q6H PRN PRN Reason: Nausea/Vomiting Last Admin: 07/22/18 08:23 Dose: 4 mg Oxycodone HCl (Oxycodone Immediate Release Tab) 5 mg PO Q6H PRN PRN Reason: Pain, severe (8-10) Last Admin: 07/22/18 17:34 Dose: 5 mg Pantoprazole Sodium (Protonix Ec Tab) 40 mg PO ACB [facility] Last Admin: 07/22/18 08:23 Dose: 40 mg - Labs Labs: 07/23/18 06:10 07/23/18 06:10 PT 19.1 SECONDS (9.4-12.5) H 07/21/18 06:30 INR 1.69 07/21/18 06:30 APTT 28.2 Seconds (26.9-38.3) 07/19/18 10:35 - Constitutional Appears: Non-toxic, No Acute Distress - Head Exam Head Exam: NORMAL INSPECTION, NORMOCEPHALIC - Eye Exam Eye Exam: Normal appearance Pupil Exam: NORMAL ACCOMODATION - ENT Exam ENT Exam: Mucous Membranes Moist, Normal Exam - Respiratory Exam Respiratory Exam: Decreased Breath Sounds, Clear to Ausculation Bilateral Additional comments: mild shortness of breath without oxygen - Cardiovascular Exam Cardiovascular Exam: REGULAR RHYTHM, +S1, +S2 - GI/Abdominal Exam GI & Abdominal Exam: Soft, Normal Bowel Sounds - Extremities Exam Extremities Exam: Full ROM, Normal Capillary Refill - Neurological Exam Neurological Exam: Alert, Awake, Oriented x3 - Psychiatric Exam Psychiatric exam: Normal Affect, Normal Mood - Skin Skin Exam: Dry, Normal Color, Warm Assessment and Plan - Assessment and Plan (Free Text) Assessment: A 53 year old female who was admitted due to chest pain, fever, chills probably neutropenic sepsis. Chest pain muskuloskeletal in nature, no evidence of myocardial ischemia. History of right breast cancer, status post right zoraida mpectomy in 2003, post lung cancer, post chemotherapy, recently diagnosed with leukemia. Echo done on 07/17/18 showed LVEF 45-50%, trace AR, moderate MR, mild to moderate TR, EVSP 31mmHg. No aspirin as patient has low platelet count.Chest X ray on admission showed bilateral bibasalar infiltrate. Being followed up by hematology/oncology. On IV antibiotics per ID. Pulmonary on consult. Repeat Chest X ray showed no significant change on left and right lower lobe infiltrate. Off Neutropenic precaution, afebrile, low platelet. Cardiac status stable,Mild shortness of breath, placed on nasal cannula. Discontinue telemetry. Plan: Mild shortness of breath, placed on nasal cannula. Off Neutropenic precaution Heart rate and blood pressure stable Will discontinue telemetry Cardiac status stable On Tenormin 25 mg BID, Solumedrol 40 mg daily, Nicoderm patch daily Continue current treatment Continue current medications Nutritional support H/H stable, low platelet Followed up by Oncology/hematology Will follow up Plan and treatment discussed with Dr. Langley
[2018-07-23] MEDS: Pantoprazole 40 mg EC Tab PO SCH (07:57)
[2018-07-23 07:58] LABS: HEPATITIS A IGM NEGATIVE (NEGATIVE); HEPATITIS B CORE AB NEGATIVE (NEGATIVE)
--- NOTE | 2018-07-23 08:03 | CP.PCM.PN ---
Subjective - Date & Time of Evaluation Date of Evaluation: 07/23/18 Time of Evaluation: 08:02 - Subjective Subjective: Dashawnquocromaine Cuellarnaklumaryana PGY1 Progress Note for Dr. Evans Pt was examined at bedside this morning. She reports feeling well, denying fever s, chills, nausea, or vomiting. She reports improvement in her RUQ abdominal pain. Objective - Vital Signs/Intake and Output Vital Signs (last 24 hours): Temp Pulse Resp BP Pulse Ox 97.8 F 77 20 147/76 94 L 07/23/18 00:01 07/23/18 02:00 07/23/18 00:01 07/23/18 00:01 07/23/18 00:01 Intake and Output: 07/23/18 07/23/18 06:59 18:59 Intake Total 240 Output Total 200 Balance 40 - Medications Medications: Current Medications Acetaminophen (Tylenol 325mg Tab) 650 mg PO Q6H PRN PRN Reason: Fever >100.4 F Last Admin: 07/17/18 11:32 Dose: 650 mg Acetylcysteine (Acetylcysteine 20%) 4 ml IH BIDRESP [facility] Last Admin: 07/22/18 20:43 Dose: 4 ml Amlodipine Besylate (Norvasc) 2.5 mg PO DAILY [facility] Last Admin: 07/22/18 09:25 Dose: 2.5 mg Atenolol (Tenormin) 25 mg PO BID [facility] Last Admin: 07/22/18 17:27 Dose: 25 mg Budesonide (Pulmicort Respules) 0.5 mg IH [id number] [facility] Last Admin: 07/22/18 20:44 Dose: 0.5 mg Dextrose/Sodium Chloride (Dextrose 5%/0.9% Ns 1000 Ml) 1,000 mls @ 75 mls/hr IV .[id number] [facility] Last Admin: 07/22/18 21:48 Dose: 75 mls/hr Levalbuterol HCl (Xopenex) 0.63 mg IH TIDRESP [facility] Last Admin: 07/22/18 20:44 Dose: 0.63 mg Loperamide HCl (Imodium) 2 mg PO DAILY PRN PRN Reason: Diarrhea Last Admin: 07/21/18 13:33 Dose: 2 mg Methylprednisolone (Solu-Medrol) 40 mg IVP DAILY [facility] Last Admin: 07/22/18 09:25 Dose: 40 mg Nicotine (Nicoderm Cq) 1 patch TD DAILY [facility] Last Admin: 07/22/18 09:25 Dose: 1 patch Ondansetron HCl (Zofran Odt) 4 mg PO Q6H PRN PRN Reason: Nausea/Vomiting Last Admin: 07/22/18 08:23 Dose: 4 mg Oxycodone HCl (Oxycodone Immediate Release Tab) 5 mg PO Q6H PRN PRN Reason: Pain, severe (8-10) Last Admin: 07/22/18 17:34 Dose: 5 mg Pantoprazole Sodium (Protonix Ec Tab) 40 mg PO ACB [facility] Last Admin: 07/23/18 07:57 Dose: 40 mg - Labs Labs: 07/23/18 06:10 07/23/18 06:10 PT 19.1 SECONDS (9.4-12.5) H 07/21/18 06:30 INR 1.69 07/21/18 06:30 APTT 28.2 Seconds (26.9-38.3) 07/19/18 10:35 - Constitutional Appears: Well, No Acute Distress - Head Exam Head Exam: ATRAUMATIC, NORMOCEPHALIC - Eye Exam Eye Exam: Normal appearance Pupil Exam: NORMAL ACCOMODATION - ENT Exam ENT Exam: Mucous Membranes Moist - Respiratory Exam Respiratory Exam: Clear to Ausculation Bilateral, NORMAL BREATHING PATTERN. absent: Rales, Rhonchi, Wheezes - Cardiovascular Exam Cardiovascular Exam: REGULAR RHYTHM, +S1, +S2. absent: Gallop, Rubs, Murmur - GI/Abdominal Exam GI & Abdominal Exam: Soft, Tenderness, Normal Bowel Sounds. absent: Distended Additional comments: mild tenderness to palpation of midline abdomen and right upper quadrant Assessment and Plan - Assessment and Plan (Free Text) Assessment: 53yo F with PMHx of Leukemia on chemo, MDS, Sickel Cell, COPD here for tx of pneumonia. Surgery consulted for RUQ abd pain. Plan: - Abd US without acute gallbladder pathology - Abd/Pelvis CT noted with gallbladder sludge, mild perihepatic ascites - No acute surgical intervention warranted at this time as symptoms are not likely due to GB - f/u HIDA scan as per GI recs - Pain management - medical management as per primary Further recs as per Dr. Evans
[2018-07-23 08:09] LABS: HEPATITIS C ANTIBODY NEGATIVE (NEGATIVE)
--- NOTE | 2018-07-23 08:37 | PN ---
DATE: 07/22/2018 ONCOLOGY PROGRESS NOTE LOCATION: The patient is in room 276, bed 2. SUBJECTIVE: The patient is seen lying in bed. Head end of the bed is elevated. The patient has been having some right upper quadrant discomfort, but nothing that is significant. Pain score is around 5/10, comes in intermittently. No overnight events reported. Overall, she is feeling better. No headaches. No rhinitis, chest pain, nausea, or vomiting. The patient is able to keep the food down. Diarrhea has improved. No leg pain or leg swelling reported. The patient still has a cough. OBJECTIVE: GENERAL: The patient is in no significant distress. VITAL SIGNS: Stable. Blood pressure is 133/81, pulse is 81, T-max is 97.4, and O2 saturation is 95% on nasal cannula. HEENT: Head is normocephalic and atraumatic. Crowded airways are noted. No oropharyngeal lesions are seen. Tongue is moist. NECK: Supple. There is no adenopathy. No jugular venous distention noted. LUNGS: Reveals bilateral rhonchi. CARDIOVASCULAR: Reveals S1 and S2 to be normal. No gallop or murmurs heard. ABDOMEN: Soft and nontender. No rebound, rigidity, or guarding is noted. The patient does complain of right upper quadrant discomfort, though she does not have it on exam at this point in time. EXTREMITIES: Reveal no significant abnormalities. NEUROLOGIC: Reveals higher functions to be normal. No focal deficits are noted. MEDICATIONS: The patient's medications are reviewed. She is on Tylenol 650 mg every 4 hours p.r.n. She is on Mucomyst inhaler twice a day, Norvasc 2.5 mg daily, atenolol 25 mg b.i.d. She is on Pulmicort 0.5 mg every 12 hours. She is on IV fluids at 75 mL an hour D5 half-normal saline. She is on Xopenex 0.63 mg inhaled three times a day. She is on Imodium 2 mg daily p.r.n. for diarrhea and cramps. She is on Solu-Medrol 40 mg IV push daily, nicotine patch transdermally daily, Zofran 4 mg IV every 6 hours p.r.n., oxycodone 5 mg every 6 hours p.r.n., and Protonix 20 mg daily. LABORATORY DATA: Reveals a white count of 6.7, RBC count of 3.57, hemoglobin is 10.9, hematocrit 32.1, and platelet count automated count is 8000 and manual count is 10,000. The patient in the past 1 unit of single-donor apheresis platelets. Sodium is 139, K is 4.3, chloride 108, CO2 of 26, anion gap of 9, BUN is 41, and creatinine 0.8. Random blood sugar is 113, calcium is 8.7, phosphorous is 2.4, magnesium is 2.2, albumin 1.4, AST is 88, ALT is 229, alkaline phosphatase 128. Total protein 5.3, albumin 2.6, and globulin 2.7. ASSESSMENT, NOTES AND PLAN: The patient had accelerated myelodysplastic syndrome evolving into leukemia, on Dacogen chemotherapy. The patient is not eligible for transplant secondary to very bad lung disease. The patient was admitted to the hospital with sepsis, hypotension, and what appeared to be right lower lobe pneumonia for which she was treated with antibiotics. The patient was noted to be leukopenic and thrombocytopenic. She received factors as she was going into septic shock and the white count has rebounded nicely. The patient is still thrombocytopenic and anemic. Thrombocytopenia has been corrected with intermitted platelet transfusions. ID has been following her. Antibiotics will be discontinued as per ID. From the pulmonary point of view, the patient is on bronchodilators. She has been feeling better. I spoke to GI, and ultrasound review of the scan, Dr. Dela Cruz was concerned about fluid collection around the gallbladder. The pericolic fluid was of concern whether the patient may have infection in the background history of being neutropenic and septic. We will get consultation with Surgery as well to be on the safe side. In the meantime, we will continue our current treatments. I had a long discussion with the patient. Right now, we will wait until her counts improve. The patient is going to have swallowing studies to rule out aspiration. This patient is going to be started on physical therapy first in bed and then as the patient become independent in activities of daily living. The patient is being monitored by ID. The patient is being monitored by Pulmonary, and Renal is also seeing the patient on the point of view of fluid and electrolytes. I will speak to the PMD as well, Dr. Lara and apprise him what our treatment plans are. I spoke to the patient in great detail. Right now, our plan is to treat her until her counts are stabilized. Appetite has improved. The patient is able to get up out of the bed into the chair and get around for activities of daily living before planning on initiating next cycle of decitabine therapy. Inclusion of other drugs into the treatment plan is just Dulcolax is on the table, but I am not really sure that the patient will be able to tolerate it because of her multiple comorbid medical issues. Time spent with the patient is greater than 45 minutes. Please make a note that this is a complex patient with multiple comorbid medical issues. We will continue to monitor her labs and proceed accordingly. Delfin Lopez MD
[2018-07-23] MEDS: MethylPREDNISolone 40 mg Vial IVP SCH (09:32)
[2018-07-23] MEDS: oxyCODONE 5 mg Immediate Release Tab PO PRN ×2 (09:47→18:36)
--- NOTE | 2018-07-23 09:59 | CP.PCM.PN ---
<Alejandro Suarez - Last Filed: 07/23/18 18:26> Subjective - Date & Time of Evaluation Date of Evaluation: 07/23/18 Time of Evaluation: 09:55 - Subjective Subjective: Patient is doing well. Tolerating diet. Minimal abdominal pain. BM x1 today. No complaints, but minimal participation with PT. 5pt ROS systems negative except for above Objective - Vital Signs/Intake and Output Vital Signs (last 24 hours): Temp Pulse Resp BP Pulse Ox 97.8 F 77 20 130/73 94 L 07/23/18 00:01 07/23/18 09:34 07/23/18 00:01 07/23/18 09:34 07/23/18 00:01 Intake and Output: 07/23/18 07/23/18 06:59 18:59 Intake Total 240 Output Total 200 Balance 40 - Medications Medications: Current Medications Acetaminophen (Tylenol 325mg Tab) 650 mg PO Q6H PRN PRN Reason: Fever >100.4 F Last Admin: 07/17/18 11:32 Dose: 650 mg Acetylcysteine (Acetylcysteine 20%) 4 ml IH BIDRESP [facility] Last Admin: 07/23/18 07:40 Dose: 4 ml Amlodipine Besylate (Norvasc) 2.5 mg PO DAILY [facility] Last Admin: 07/23/18 09:34 Dose: 2.5 mg Atenolol (Tenormin) 25 mg PO BID [facility] Last Admin: 07/23/18 09:34 Dose: 25 mg Budesonide (Pulmicort Respules) 0.5 mg IH [id number] [facility] Last Admin: 07/23/18 07:40 Dose: 0.5 mg Dextrose/Sodium Chloride (Dextrose 5%/0.9% Ns 1000 Ml) 1,000 mls @ 75 mls/hr IV .[id number] [facility] Last Admin: 07/22/18 21:48 Dose: 75 mls/hr Levalbuterol HCl (Xopenex) 0.63 mg IH TIDRESP [facility] Last Admin: 07/23/18 07:40 Dose: 0.63 mg Loperamide HCl (Imodium) 2 mg PO DAILY PRN PRN Reason: Diarrhea Last Admin: 07/21/18 13:33 Dose: 2 mg Methylprednisolone (Solu-Medrol) 40 mg IVP DAILY [facility] Last Admin: 07/23/18 09:32 Dose: 40 mg Nicotine (Nicoderm Cq) 1 patch TD DAILY [facility] Last Admin: 07/23/18 09:33 Dose: 1 patch Ondansetron HCl (Zofran Odt) 4 mg PO Q6H PRN PRN Reason: Nausea/Vomiting Last Admin: 07/22/18 08:23 Dose: 4 mg Oxycodone HCl (Oxycodone Immediate Release Tab) 5 mg PO Q6H PRN PRN Reason: Pain, severe (8-10) Last Admin: 07/23/18 09:47 Dose: 5 mg Pantoprazole Sodium (Protonix Ec Tab) 40 mg PO ACB [facility] Last Admin: 07/23/18 07:57 Dose: 40 mg - Labs Labs: 07/23/18 06:10 07/23/18 06:10 PT 19.1 SECONDS (9.4-12.5) H 07/21/18 06:30 INR 1.69 07/21/18 06:30 APTT 28.2 Seconds (26.9-38.3) 07/19/18 10:35 - Constitutional Appears: Non-toxic, No Acute Distress, Chronically Ill - Eye Exam Eye Exam: EOMI, Normal appearance - Respiratory Exam Respiratory Exam: Clear to Ausculation Bilateral, NORMAL BREATHING PATTERN - Cardiovascular Exam Cardiovascular Exam: REGULAR RHYTHM, +S1, +S2 - Extremities Exam Extremities Exam: Normal Inspection. absent: Pedal Edema - Neurological Exam Neurological Exam: Alert, Awake, Oriented x3 - Psychiatric Exam Psychiatric exam: Normal Affect, Normal Mood Assessment and Plan - Assessment and Plan (Free Text) Assessment: # Acute abdominal pain: Unclear etiology of abnormal liver tests (hepatocellular) and liver function however she was very sick in the ICU previously and abnormalities can be associated with the sepsis or possibly a new hepatobiliary problem. INR is elevated however she is not encephalopathic. She is on a few hepatotoxic medications. Continue to monitor, and keep a consideration. CT with possible cholecystitis # Elevated liver enzymes # elevated INR # sickle cell # pneumonia, septic shock # COPD # myelodysplastic syndrome on chemotherapy # pancytopenia Plan: -Abdominal/Pelvis CT with PO contrast: Suspicious for cholecystitis, on Kyle+Doxy per ID -HIDA negative Abdominal ultrasound negative -Continue to monitor liver tests, INR -ID consulted: On Kyle and Doxy -Transfusions per hematology -No endoscopic evaluation planned at this time -Advance diet Case reviewed with Dr. Dela Cruz, see attestation <Efrem Dela Cruz V - Last Filed: 07/23/18 22:09> Objective - Vital Signs/Intake and Output Vital Signs (last 24 hours): Temp Pulse Resp BP Pulse Ox 97.2 F L 74 20 174/89 H 94 L 07/23/18 17:29 07/23/18 18:41 07/23/18 17:29 07/23/18 18:41 07/23/18 00:01 Intake and Output: 07/23/18 07/24/18 18:59 06:59 Intake Total 1240 Output Total 0 Balance 1240 - Medications Medications: Current Medications Acetaminophen (Tylenol 325mg Tab) 650 mg PO Q6H PRN PRN Reason: Fever >100.4 F Last Admin: 07/17/18 11:32 Dose: 650 mg Acetylcysteine (Acetylcysteine 20%) 4 ml IH BIDRESP [facility] Last Admin: 07/23/18 20:13 Dose: 4 ml Amlodipine Besylate (Norvasc) 2.5 mg PO DAILY [facility] Last Admin: 07/23/18 09:34 Dose: 2.5 mg Atenolol (Tenormin) 25 mg PO BID [facility] Last Admin: 07/23/18 18:41 Dose: 25 mg Budesonide (Pulmicort Respules) 0.5 mg IH [id number] [facility] Last Admin: 07/23/18 20:13 Dose: 0.5 mg Hydroxyzine HCl (Atarax) 25 mg PO BID PRN PRN Reason: Itching / Pruritus Dextrose/Sodium Chloride (Dextrose 5%/0.9% Ns 1000 Ml) 1,000 mls @ 75 mls/hr IV .[id number] [facility] Last Admin: 07/23/18 18:43 Dose: 75 mls/hr Levalbuterol HCl (Xopenex) 0.63 mg IH TIDRESP [facility] Last Admin: 07/23/18 20:13 Dose: 0.63 mg Loperamide HCl (Imodium) 2 mg PO DAILY PRN PRN Reason: Diarrhea Last Admin: 07/21/18 13:33 Dose: 2 mg Methylprednisolone (Solu-Medrol) 40 mg IVP DAILY [facility] Last Admin: 07/23/18 09:32 Dose: 40 mg Nicotine (Nicoderm Cq) 1 patch TD DAILY [facility] Ondansetron HCl (Zofran Odt) 4 mg PO Q6H PRN PRN Reason: Nausea/Vomiting Last Admin: 07/22/18 08:23 Dose: 4 mg Oxycodone HCl (Oxycodone Immediate Release Tab) 5 mg PO Q6H PRN PRN Reason: Pain, severe (8-10) Last Admin: 07/23/18 18:36 Dose: 5 mg Pantoprazole Sodium (Protonix Ec Tab) 40 mg PO ACB [facility] Last Admin: 07/23/18 07:57 Dose: 40 mg - Labs Labs: 07/23/18 06:10 07/23/18 06:10 PT 19.1 SECONDS (9.4-12.5) H 07/21/18 06:30 INR 1.69 07/21/18 06:30 APTT 28.2 Seconds (26.9-38.3) 07/19/18 10:35 Attending/Attestation - Attestation I have personally seen and examined this patient.: Yes I have fully participated in the care of the patient.: Yes I have reviewed all pertinent clinical information, including history, physical exam and plan: Yes Notes (Text): This is an addendum to GI progress report dictated by the GI Fellow. The patient was seen and examined earlier. Medical records, lab studies, imagings were reviewed. Last 24 hours events reviewed. Agreed with the above treatment plan as outlined in GI Fellow 's notes with the addition of the following HIDA scan was reviewed negative Clinically much improved Significant decrease in tenderness right upper quadrant area Continue the antibiotics Tolerating diet Follow-up LFT 07/23/18 22:08
--- NOTE | 2018-07-23 10:38 | PN ---
DATE: 07/23/2018 SUBJECTIVE: The patient seems better. She is more alert, smiling, feels better. PHYSICAL EXAMINATION: VITAL SIGNS: Temperature 98.3, heart rate 82, blood pressure 132/78, respirations 16. HEAD AND NECK: Normal. No JVD. No thyromegaly. CHEST: Clear bilaterally. CARDIAC: First sound and second sound normal. ABDOMEN: Soft and nontender. EXTREMITIES: No edema. NEUROLOGIC: Exam is normal. LABORATORY DATA: White count 6.7, hemoglobin 10.9, hematocrit 32.1, platelets 8000. Chemistry; sodium 139, potassium 4.3, chloride 108, bicarb 25, BUN 41, creatinine 0.8, and blood sugar 115. Liver function is better. Bilirubin is down to 1.4. AST 88, ALT 229, alk phos 122. IMPRESSION AND PLAN: 1. Gram-negative sepsis secondary to community-acquired pneumonia in an immunosuppressed patient, on chemotherapy. The patient is stable. She is still getting better . 2. Chronic obstructive pulmonary disease, continue steroid and inhaled bronchodilators. 3. Pancytopenia with severe low platelets. Continue monitoring. We will transfuse 1 unit of platelets, single donor. 4. Hypertension, stable. Continue Norvasc plus Tenormin twice a day twice a day 25 mg. 5. Gram-negative bacteremia. Continue intravenous antibiotics. Continue current therapy. Follow up with other consultants. The patient is clinically improving. August Lara MD
--- NOTE | 2018-07-23 13:52 | PN ---
DATE: 07/23/2018 PULMONARY PROGRESS NOTE REFERRING PHYSICIAN: August Lara MD. SUBJECTIVE: The patient is seen sitting up in bed. No acute distress. No overnight events reported. The patient reports feeling much better today. Reports that appetite is much better. She is smiling seems more alert. Still complaints of cough and at times cough with productive cough and some chest congestion. No headache, rhinitis, chest pain, abdominal pain, nausea, vomiting, diarrhea, leg pain or leg swelling reported. Still have periods of shortness of breath. PHYSICAL EXAMINATION: GENERAL: No acute distress. VITAL SIGNS: Blood pressure 162/76, pulse 71, temperature 98.1 and oxygen saturation 94% on nasal cannula. HEENT: Moist mucous membranes. Crowded airway. NECK: Supple. No JVD. LUNGS: Scattered rhonchi bilaterally. CARDIOVASCULAR: S1 and S2. ABDOMEN: Soft and nontender. No distention. No organomegaly. EXTREMITIES: No bilateral lower extremity edema. NEUROLOGIC: Awake, alert and verbal. Follows commands. MEDICATIONS: Reviewed. Tylenol 650 mg every 6 hours p.r.n. fever greater than 100.4, Mucomyst 4 mL inhalation twice a day, Norvasc 2.5 mg p.o. daily, atenolol 25 mg twice a day, Pulmicort 0.5 mg inhalation every 12 hours, dextrose 5%, sodium chloride 0.9% in 1000 mL at 75 mL per hour, Xopenex 0.63 mg inhalation three times a day, Imodium 2 mg daily p.r.n., Solu-Medrol 40 mg daily, nicotine patch transdermal daily, Zofran 4 mg every 6 hours p.r.n., oxycodone 5 mg every 6 hours p.r.n. and Protonix 40 mg in morning. LABORATORY DATA: Reviewed. WBC 6.8, RBC 3.26, hemoglobin 10, hematocrit 30.2 and platelets 18. Sodium 143, potassium 3.7, chloride 109, carbon dioxide 29, anion gap 8, BUN 32, creatinine 0.6, GFR greater than 60, random glucose 101, calcium 8.3, phosphorous 2.6, magnesium 1.9, total bilirubin 1.1, AST 57, ALT 175, alkaline phosphatase 119, total protein 4.9, albumin 2.5, globulin 2.5 and albumin-globulin ratio 1. Hepatitis A, IgM antibody negative, hepatitis B antigen negative, hepatitis B core IgM antibody negative and hepatitis C antibody negative. IMPRESSION AND PLAN: Leukemia and chronic lung disease. The patient was on chemotherapy, neutropenia which has resolved, thrombocytopenia and sepsis. The patient was being treated for healthcare-associated infection no longer antibiotic therapy. Continue inhaled bronchodilators. Continue current steroid dosing. Supportive care. Continue chest physiotherapy. Follow evaluation was done and speech therapy recommend soft regular consistency diet with her liquids. Aspiration precautions. Head of bed elevated at 45 degrees for meals. We will add incentive spirometer. Continue Oncology, Hematology followup and Nephrology followup. The patient is being followed by Infectious Disease. The patient would benefit from physical therapy. This patient was seen and examined with Dr. Maurer. Discussed assessment and plan as described above. This patient was seen and examined by Henry Marquez, nurse practitioner. Discussed assessment and plan as described above. Thank you for this consult. We will follow with you. Henry Marquez APN Solange Maurer MD
--- NOTE | 2018-07-23 14:52 | PN ---
DATE: 07/20/2018 SUBJECTIVE: The patient is in ICU. She is alert, awake, oriented x3. She is very weak . She complained of mild dyspnea. Otherwise, the patient appears comfortable breathing. She did complain of chest discomfort that she describes was associated with coughing. PHYSICAL EXAMINATION: VITAL SIGNS: Temperature 98.8, . LABORATORY DATA: , chloride 108, bicarb 26, BUN 39, creatinine 1.2, blood sugar 180. Liver function test including total bilirubin 1.6, AST 181, ALT 165, alk phos is normal. IMPRESSION AND PLAN: 1. Neutropenic sepsis. The patient has pneumonia. We will continue with intravenous antibiotics. Continue Merrem intravenous every 8 hours, doxycycline 100 b.i.d., . 2. Pancytopenia, therapy related. Hematology and Oncology on the case. Continue . August Lara MD
--- NOTE | 2018-07-23 15:54 | CP.PCM.PN ---
Subjective - Date & Time of Evaluation Date of Evaluation: 07/23/18 Time of Evaluation: 07:45 - Subjective Subjective: Heme/Onc Progress note for Dr. Lopez Patient seen and examined this AM at bedside. Patient reports mild abdominal discomfort and some nausea. She reports some itching of her left upper extremity. She denies chest pain, shortness of breath, nausea, vomiting, fever, chills. Objective - Vital Signs/Intake and Output Vital Signs (last 24 hours): Temp Pulse Resp BP Pulse Ox 98.1 F 71 19 162/76 H 94 L 07/23/18 12:00 07/23/18 12:00 07/23/18 12:00 07/23/18 12:00 07/23/18 00:01 Intake and Output: 07/23/18 07/23/18 06:59 18:59 Intake Total 240 Output Total 200 Balance 40 - Medications Medications: Current Medications Acetaminophen (Tylenol 325mg Tab) 650 mg PO Q6H PRN PRN Reason: Fever >100.4 F Last Admin: 07/17/18 11:32 Dose: 650 mg Acetylcysteine (Acetylcysteine 20%) 4 ml IH BIDRESP [facility] Last Admin: 07/23/18 07:40 Dose: 4 ml Amlodipine Besylate (Norvasc) 2.5 mg PO DAILY [facility] Last Admin: 07/23/18 09:34 Dose: 2.5 mg Atenolol (Tenormin) 25 mg PO BID [facility] Last Admin: 07/23/18 09:34 Dose: 25 mg Budesonide (Pulmicort Respules) 0.5 mg IH [id number] [facility] Last Admin: 07/23/18 07:40 Dose: 0.5 mg Dextrose/Sodium Chloride (Dextrose 5%/0.9% Ns 1000 Ml) 1,000 mls @ 75 mls/hr IV .[id number] [facility] Last Admin: 07/22/18 21:48 Dose: 75 mls/hr Levalbuterol HCl (Xopenex) 0.63 mg IH TIDRESP [facility] Last Admin: 07/23/18 13:36 Dose: Not Given Loperamide HCl (Imodium) 2 mg PO DAILY PRN PRN Reason: Diarrhea Last Admin: 07/21/18 13:33 Dose: 2 mg Methylprednisolone (Solu-Medrol) 40 mg IVP DAILY [facility] Last Admin: 07/23/18 09:32 Dose: 40 mg Nicotine (Nicoderm Cq) 1 patch TD DAILY [facility] Last Admin: 07/23/18 09:33 Dose: 1 patch Ondansetron HCl (Zofran Odt) 4 mg PO Q6H PRN PRN Reason: Nausea/Vomiting Last Admin: 07/22/18 08:23 Dose: 4 mg Oxycodone HCl (Oxycodone Immediate Release Tab) 5 mg PO Q6H PRN PRN Reason: Pain, severe (8-10) Last Admin: 07/23/18 09:47 Dose: 5 mg Pantoprazole Sodium (Protonix Ec Tab) 40 mg PO ACB [facility] Last Admin: 07/23/18 07:57 Dose: 40 mg - Labs Labs: 07/23/18 06:10 07/23/18 06:10 PT 19.1 SECONDS (9.4-12.5) H 07/21/18 06:30 INR 1.69 07/21/18 06:30 APTT 28.2 Seconds (26.9-38.3) 07/19/18 10:35 - Constitutional Appears: Older Than Stated Age - Head Exam Head Exam: ATRAUMATIC, NORMOCEPHALIC - Eye Exam Eye Exam: EOMI, PERRL - ENT Exam ENT Exam: Mucous Membranes Moist - Respiratory Exam Respiratory Exam: Clear to Ausculation Bilateral, NORMAL BREATHING PATTERN - Cardiovascular Exam Cardiovascular Exam: REGULAR RHYTHM, +S1, +S2 - GI/Abdominal Exam GI & Abdominal Exam: Soft, Tenderness (RUQ), Normal Bowel Sounds - Extremities Exam Extremities Exam: Normal Capillary Refill. absent: Pedal Edema - Neurological Exam Neurological Exam: Alert, Awake, Oriented x3 - Psychiatric Exam Psychiatric exam: Normal Affect, Normal Mood - Skin Skin Exam: Dry, Warm Assessment and Plan - Assessment and Plan (Free Text) Assessment: 53-year old female with accelerated MDS s/p chemotherapy, immunosuppression, lung cancer s/p lobectomy, R breast mastectomy, COPD, endocarditis who presented to [facility] for productive cough, fevers, chills x 1 month. Patient on admission found to be leukopenic and thrombocytopenic. Patient currently undergoing furhter evaluation and monitoring of blood counts as well as possible gb pathology with GI and General Surgery team. Plan: - Continue to monitor platelets, transfuse as needed - Will check Hgb today, plan to transfuse 1 unit pRBC if Hgb <8 - f/u GI and Surgery recommendations - Continued work with physical therapy - Replete and replenish lytes per primary team - Atarax 25mg BID - reduce nicotine patch .14 to .7
--- NOTE | 2018-07-23 17:45 | NM ---
Date of service: 07/23/2018 PROCEDURE: Nuclear Medicine Hepatobiliary Scan HISTORY: eval cholecystitis COMPARISON: 07/20/2018. Abdominal ultrasound. 07/21/2018 CT abdomen and pelvis. TECHNIQUE: 5.0 mCi of technetium 99m Mebrofenin was administered intravenously. Planar images of the abdomen were obtained at 5 min intervals to 60 mins. Delayed images were also obtained. FINDINGS: LIVER: Timely and homogenous uptake. COMMON BILE DUCT: identified at 5 mins. GALLBLADDER: identified at 30 mins. SMALL BOWEL: Identified at 30 mins. IMPRESSION: Normal Hepatobiliary Scan. The cystic duct is patent.
[2018-07-23] MEDS: Dextrose 5%/0.9% NS 1,000 ML IV SCH (18:43)
--- NOTE | 2018-07-23 22:38 | PN ---
DATE: 07/23/2018 SUBJECTIVE: The patient is in bed, in no acute distress, nontoxic. PHYSICAL EXAMINATION: VITAL SIGNS: Temperature is 97, blood pressure is 170/80, respiratory rate of 16. HEENT: Unremarkable. NECK: Supple. HEART: Normal S1 and S2. ABDOMEN: Soft, nontender. LABORATORY EXAMINATION: Reveals a white count of 6.8. Chemistries reveal a BUN of 32 and creatinine of 0.6. Urinalysis is noted. ASSESSMENT AND PLAN: This is a 53-year-old female who was seen earlier today, was initially admitted with septic shock, healthcare-associated pneumonia, neutropenic febrile state with acute kidney injury, now neutropenia resolved. Ultrasound of the abdomen is negative. Currently off of antibiotics, afebrile. Review of orders confirms the patient's antibiotics to be off. Dr. Johansen note is reviewed. Terrance Juan MD
--- NOTE | 2018-07-24 07:54 | CP.PCM.PN ---
Subjective - Date & Time of Evaluation Date of Evaluation: 07/24/18 Time of Evaluation: 07:00 - Subjective Subjective: Awake, alert, no distress Reason for consultation and follow up: Cardiac evaluation of chest pain, admitted for neutropenic sepsis recently diagnosed with leukemia. History of right breast cancer, status post right lumpectomy in 2003, post lung cancer, post chemotherapy. Seen and examined by me and Dr. Langley Objective - Vital Signs/Intake and Output Vital Signs (last 24 hours): Temp Pulse Resp BP Pulse Ox 98.4 F 81 20 147/65 96 07/24/18 06:00 07/24/18 06:00 07/24/18 06:00 07/24/18 06:00 07/24/18 06:00 Intake and Output: 07/24/18 07/24/18 06:59 18:59 Intake Total 2620 Output Total 0 Balance 2620 - Medications Medications: Current Medications Acetaminophen (Tylenol 325mg Tab) 650 mg PO Q6H PRN PRN Reason: Fever >100.4 F Last Admin: 07/17/18 11:32 Dose: 650 mg Acetylcysteine (Acetylcysteine 20%) 4 ml IH BIDRESP [facility] Last Admin: 07/23/18 20:13 Dose: 4 ml Amlodipine Besylate (Norvasc) 2.5 mg PO DAILY [facility] Last Admin: 07/23/18 09:34 Dose: 2.5 mg Atenolol (Tenormin) 25 mg PO BID [facility] Last Admin: 07/23/18 18:41 Dose: 25 mg Budesonide (Pulmicort Respules) 0.5 mg IH [id number] [facility] Last Admin: 07/23/18 20:13 Dose: 0.5 mg Hydroxyzine HCl (Atarax) 25 mg PO BID PRN PRN Reason: Itching / Pruritus Last Admin: 07/23/18 22:35 Dose: 25 mg Dextrose/Sodium Chloride (Dextrose 5%/0.9% Ns 1000 Ml) 1,000 mls @ 75 mls/hr IV .[id number] [facility] Last Admin: 07/23/18 18:43 Dose: 75 mls/hr Levalbuterol HCl (Xopenex) 0.63 mg IH TIDRESP [facility] Last Admin: 07/23/18 20:13 Dose: 0.63 mg Loperamide HCl (Imodium) 2 mg PO DAILY PRN PRN Reason: Diarrhea Last Admin: 07/21/18 13:33 Dose: 2 mg Methylprednisolone (Solu-Medrol) 40 mg IVP DAILY [facility] Last Admin: 07/23/18 09:32 Dose: 40 mg Nicotine (Nicoderm Cq) 1 patch TD DAILY [facility] Ondansetron HCl (Zofran Odt) 4 mg PO Q6H PRN PRN Reason: Nausea/Vomiting Last Admin: 07/22/18 08:23 Dose: 4 mg Oxycodone HCl (Oxycodone Immediate Release Tab) 5 mg PO Q6H PRN PRN Reason: Pain, severe (8-10) Last Admin: 07/23/18 18:36 Dose: 5 mg Pantoprazole Sodium (Protonix Ec Tab) 40 mg PO ACB [facility] Last Admin: 07/23/18 07:57 Dose: 40 mg - Labs Labs: 07/23/18 06:10 07/23/18 06:10 PT 19.1 SECONDS (9.4-12.5) H 07/21/18 06:30 INR 1.69 07/21/18 06:30 APTT 28.2 Seconds (26.9-38.3) 07/19/18 10:35 - Constitutional Appears: Non-toxic, No Acute Distress - Head Exam Head Exam: NORMAL INSPECTION, NORMOCEPHALIC - Eye Exam Eye Exam: Normal appearance Pupil Exam: NORMAL ACCOMODATION - ENT Exam ENT Exam: Mucous Membranes Moist, Normal Exam - Respiratory Exam Respiratory Exam: Decreased Breath Sounds, NORMAL BREATHING PATTERN - Cardiovascular Exam Cardiovascular Exam: +S1, +S2 - GI/Abdominal Exam GI & Abdominal Exam: Soft, Normal Bowel Sounds - Extremities Exam Extremities Exam: Full ROM, Normal Capillary Refill - Neurological Exam Neurological Exam: Alert, Awake, Oriented x3 - Psychiatric Exam Psychiatric exam: Normal Affect, Normal Mood - Skin Skin Exam: Dry, Normal Color, Warm Assessment and Plan - Assessment and Plan (Free Text) Assessment: A 53 year old female who was admitted due to chest pain, fever, chills probably neutropenic sepsis. Chest pain muskuloskeletal in nature, no evidence of myocardial ischemia. History of right breast cancer, status post right lumpectomy in 2003, post lung cancer, post chemotherapy, recently diagnosed with leukemia. Echo done on 07/17/18 showed LVEF 45-50%, trace AR, moderate MR, mild to moderate TR, EVSP 31mmHg. No aspirin as patient has low platelet count.Chest X ray on admission showed bilateral bibasalar infiltrate. Being followed up by hematology/oncology. ID on consult. Pulmonary on consult. Repeat Chest X ray showed no significant change on left and right lower lobe infiltrate. Off Neutropenic precaution, Afebrile, low platelet. Cardiac status stable. HIDA scan done yesterday-normal result. Plan: No distress Cardiac status stable Heart rate and blood pressure stable On Tenormin 25 mg BID, Solumedrol 40 mg daily, Nicoderm patch daily Norvasc 2,5 mg daily Continue current treatment Continue current medications Nutritional support ID on consult Oncology/hematology on consult Physical therapy Will follow up Plan and treatment discussed with Dr. Langley
--- NOTE | 2018-07-24 08:47 | CP.PCM.PN ---
<RoopagwenAlejandro - Last Filed: 07/24/18 10:55> Subjective - Date & Time of Evaluation Date of Evaluation: 07/24/18 Time of Evaluation: 08:43 - Subjective Subjective: Patient had uneventful night. She is tolerating diet and having BMs. She is still very weak and not getting out of bed much. Denies abdominal pain. Objective - Vital Signs/Intake and Output Vital Signs (last 24 hours): Temp Pulse Resp BP Pulse Ox 98.4 F 81 20 147/65 96 07/24/18 06:00 07/24/18 06:00 07/24/18 06:00 07/24/18 06:00 07/24/18 06:00 Intake and Output: 07/24/18 07/24/18 06:59 18:59 Intake Total 2620 Output Total 0 Balance 2620 - Medications Medications: Current Medications Acetaminophen (Tylenol 325mg Tab) 650 mg PO Q6H PRN PRN Reason: Fever >100.4 F Last Admin: 07/17/18 11:32 Dose: 650 mg Acetylcysteine (Acetylcysteine 20%) 4 ml IH BIDRESP [facility] Last Admin: 07/23/18 20:13 Dose: 4 ml Amlodipine Besylate (Norvasc) 2.5 mg PO DAILY [facility] Last Admin: 07/23/18 09:34 Dose: 2.5 mg Atenolol (Tenormin) 25 mg PO BID [facility] Last Admin: 07/23/18 18:41 Dose: 25 mg Budesonide (Pulmicort Respules) 0.5 mg IH [id number] [facility] Last Admin: 07/23/18 20:13 Dose: 0.5 mg Hydroxyzine HCl (Atarax) 25 mg PO BID PRN PRN Reason: Itching / Pruritus Last Admin: 07/23/18 22:35 Dose: 25 mg Dextrose/Sodium Chloride (Dextrose 5%/0.9% Ns 1000 Ml) 1,000 mls @ 75 mls/hr IV .[id number] [facility] Last Admin: 07/23/18 18:43 Dose: 75 mls/hr Levalbuterol HCl (Xopenex) 0.63 mg IH TIDRESP [facility] Last Admin: 07/23/18 20:13 Dose: 0.63 mg Loperamide HCl (Imodium) 2 mg PO DAILY PRN PRN Reason: Diarrhea Last Admin: 07/21/18 13:33 Dose: 2 mg Methylprednisolone (Solu-Medrol) 40 mg IVP DAILY [facility] Last Admin: 07/23/18 09:32 Dose: 40 mg Nicotine (Nicoderm Cq) 1 patch TD DAILY [facility] Ondansetron HCl (Zofran Odt) 4 mg PO Q6H PRN PRN Reason: Nausea/Vomiting Last Admin: 07/22/18 08:23 Dose: 4 mg Oxycodone HCl (Oxycodone Immediate Release Tab) 5 mg PO Q6H PRN PRN Reason: Pain, severe (8-10) Last Admin: 07/23/18 18:36 Dose: 5 mg Pantoprazole Sodium (Protonix Ec Tab) 40 mg PO ACB [facility] Last Admin: 07/23/18 07:57 Dose: 40 mg - Labs Labs: 07/23/18 06:10 07/23/18 06:10 PT 19.1 SECONDS (9.4-12.5) H 07/21/18 06:30 INR 1.69 07/21/18 06:30 APTT 28.2 Seconds (26.9-38.3) 07/19/18 10:35 - Constitutional Appears: Non-toxic, No Acute Distress - Head Exam Head Exam: ATRAUMATIC, NORMAL INSPECTION - Eye Exam Eye Exam: EOMI, Normal appearance - ENT Exam ENT Exam: Mucous Membranes Moist, Normal Exam - Respiratory Exam Respiratory Exam: Clear to Ausculation Bilateral, Rhonchi, NORMAL BREATHING PATTERN - Cardiovascular Exam Cardiovascular Exam: REGULAR RHYTHM, +S1, +S2 - GI/Abdominal Exam GI & Abdominal Exam: Soft, Normal Bowel Sounds. absent: Tenderness - Neurological Exam Neurological Exam: Alert, Awake, Oriented x3 - Psychiatric Exam Psychiatric exam: Normal Affect, Normal Mood - Skin Skin Exam: Normal Color, Warm Assessment and Plan - Assessment and Plan (Free Text) Assessment: # Acute abdominal pain: Unclear etiology of abnormal liver tests (hepat ocellular) and liver function however she was very sick in the ICU previously and abnormalities can be associated with the sepsis or possibly a new hepatobiliary problem. INR is elevated however she is not encephalopathic. She is on a few hepatotoxic medications. Continue to monitor, and keep a c onsideration. # Elevated liver enzymes # elevated INR # sickle cell # pneumonia, septic shock # COPD # myelodysplastic syndrome on chemotherapy # pancytopenia Plan: -Abdominal/Pelvis CT with PO contrast: Suspicious for cholecystitis, on Kyle+Doxy per ID -HIDA negative Abdominal ultrasound negative -Continue to monitor liver tests, INR -ID consulted: On Kyle and Doxy -Transfusions per hematology -No endoscopic evaluation planned at this time -Continue diet Case reviewed with Dr. Dela Cruz, see attestation <Efrem Dela Cruz V - Last Filed: 07/24/18 23:57> Objective - Vital Signs/Intake and Output Vital Signs (last 24 hours): Temp Pulse Resp BP Pulse Ox 98.9 F 79 18 167/77 H 95 07/24/18 17:00 07/24/18 17:16 07/24/18 17:00 07/24/18 17:16 07/24/18 17:00 Intake and Output: 07/24/18 07/25/18 18:59 06:59 Intake Total 360 Output Total 301 Balance 59 - Medications Medications: Current Medications Acetaminophen (Tylenol 325mg Tab) 650 mg PO Q6H PRN PRN Reason: Fever >100.4 F Last Admin: 07/17/18 11:32 Dose: 650 mg Acetylcysteine (Acetylcysteine 20%) 4 ml IH BIDRESP [facility] Last Admin: 07/24/18 19:51 Dose: 4 ml Amlodipine Besylate (Norvasc) 5 mg PO DAILY [facility] Atenolol (Tenormin) 25 mg PO BID [facility] Last Admin: 07/24/18 17:16 Dose: 25 mg Budesonide (Pulmicort Respules) 0.5 mg IH [id number] [facility] Last Admin: 07/24/18 19:52 Dose: 0.5 mg Clonidine HCl (Catapres) 0.1 mg PO Q4 PRN PRN Reason: systolic 170 and above Hydroxyzine HCl (Atarax) 25 mg PO BID PRN PRN Reason: Itching / Pruritus Last Admin: 07/24/18 11:23 Dose: 25 mg Dextrose/Sodium Chloride (Dextrose 5%/0.9% Ns 1000 Ml) 1,000 mls @ 75 mls/hr IV .[id number] [facility] Last Admin: 07/24/18 13:16 Dose: 75 mls/hr Levalbuterol HCl (Xopenex) 0.63 mg IH TIDRESP [facility] Last Admin: 07/24/18 19:52 Dose: 0.63 mg Loperamide HCl (Imodium) 2 mg PO DAILY PRN PRN Reason: Diarrhea Last Admin: 07/24/18 11:24 Dose: 2 mg Methylprednisolone (Solu-Medrol) 40 mg IVP DAILY [facility] Last Admin: 07/24/18 11:22 Dose: 40 mg Nicotine (Nicoderm Cq) 1 patch TD DAILY [facility] Last Admin: 07/24/18 11:26 Dose: 1 patch Ondansetron HCl (Zofran Odt) 4 mg PO Q6H PRN PRN Reason: Nausea/Vomiting Last Admin: 07/24/18 13:16 Dose: 4 mg Oxycodone HCl (Oxycodone Immediate Release Tab) 5 mg PO Q6H PRN PRN Reason: Pain, severe (8-10) Last Admin: 07/24/18 11:23 Dose: 5 mg Pantoprazole Sodium (Protonix Ec Tab) 40 mg PO ACB [facility] Last Admin: 07/24/18 11:23 Dose: 40 mg - Labs Labs: 07/24/18 12:31 07/24/18 12:31 PT 19.1 SECONDS (9.4-12.5) H 07/21/18 06:30 INR 1.69 07/21/18 06:30 APTT 28.2 Seconds (26.9-38.3) 07/19/18 10:35 Attending/Attestation - Attestation I have personally seen and examined this patient.: Yes I have fully participated in the care of the patient.: Yes I have reviewed all pertinent clinical information, including history, physical exam and plan: Yes Notes (Text): This is an addendum to GI progress report dictated by the GI Fellow. The patient was seen and examined earlier. Medical records, lab studies, imagings were reviewed. Last 24 hours events reviewed. Agreed with the above treatment plan as outlined in GI Fellow 's notes with the addition of the following 07/24/18 23:57
[2018-07-24] MEDS: Levalbuterol 0.63 MG/3 ML Inhal Soln UD IH SCH ×3 (08:49→19:52)
[2018-07-24] MEDS: Acetylcysteine 20% Inhal Soln (4ml) IH SCH ×2 (08:50→19:51)
[2018-07-24] MEDS: Budesonide 0.5 mg/2 ml Inhal Susp UD IH SCH ×2 (08:50→19:52)
[2018-07-24] MEDS ORDERED: Potassium Chloride 20 mEq ER Tab PO ONE (11:03)
[2018-07-24] MEDS: MethylPREDNISolone 40 mg Vial IVP SCH (11:22)
[2018-07-24] MEDS: Pantoprazole 40 mg EC Tab PO SCH (11:23)
[2018-07-24] MEDS: oxyCODONE 5 mg Immediate Release Tab PO PRN (11:23)
--- NOTE | 2018-07-24 11:35 | CP.PCM.PN ---
Subjective - Date & Time of Evaluation Date of Evaluation: 07/24/18 Time of Evaluation: 11:32 - Subjective Subjective: Leonidas Pardo PGY2 - Heme/Onc Progress Note for Dr. Lopez Patient seen and examined this AM. No acute events overnight reported. Patient with minimal complaints. Denies chest pain, nausea, vomiting, fever, chills. Patient reports loose bowel movements overnight and fatigue. She reports being limited to bed secondary to fatigue. Objective - Vital Signs/Intake and Output Vital Signs (last 24 hours): Temp Pulse Resp BP Pulse Ox 98.4 F 81 20 166/78 H 96 07/24/18 06:00 07/24/18 06:00 07/24/18 06:00 07/24/18 11:27 07/24/18 06:00 Intake and Output: 07/24/18 07/24/18 06:59 18:59 Intake Total 2620 Output Total 0 Balance 2620 - Medications Medications: Current Medications Acetaminophen (Tylenol 325mg Tab) 650 mg PO Q6H PRN PRN Reason: Fever >100.4 F Last Admin: 07/17/18 11:32 Dose: 650 mg Acetylcysteine (Acetylcysteine 20%) 4 ml IH BIDRESP [facility] Last Admin: 07/24/18 08:50 Dose: 4 ml Amlodipine Besylate (Norvasc) 2.5 mg PO DAILY [facility] Last Admin: 07/24/18 11:24 Dose: 2.5 mg Atenolol (Tenormin) 25 mg PO BID [facility] Last Admin: 07/24/18 11:27 Dose: 25 mg Budesonide (Pulmicort Respules) 0.5 mg IH [id number] [facility] Last Admin: 07/24/18 08:50 Dose: 0.5 mg Hydroxyzine HCl (Atarax) 25 mg PO BID PRN PRN Reason: Itching / Pruritus Last Admin: 07/24/18 11:23 Dose: 25 mg Dextrose/Sodium Chloride (Dextrose 5%/0.9% Ns 1000 Ml) 1,000 mls @ 75 mls/hr IV .[id number] [facility] Last Admin: 07/23/18 18:43 Dose: 75 mls/hr Levalbuterol HCl (Xopenex) 0.63 mg IH TIDRESP [facility] Last Admin: 07/24/18 08:49 Dose: 0.63 mg Loperamide HCl (Imodium) 2 mg PO DAILY PRN PRN Reason: Diarrhea Last Admin: 07/24/18 11:24 Dose: 2 mg Methylprednisolone (Solu-Medrol) 40 mg IVP DAILY [facility] Last Admin: 07/24/18 11:22 Dose: 40 mg Nicotine (Nicoderm Cq) 1 patch TD DAILY [facility] Last Admin: 07/24/18 11:26 Dose: 1 patch Ondansetron HCl (Zofran Odt) 4 mg PO Q6H PRN PRN Reason: Nausea/Vomiting Last Admin: 07/22/18 08:23 Dose: 4 mg Oxycodone HCl (Oxycodone Immediate Release Tab) 5 mg PO Q6H PRN PRN Reason: Pain, severe (8-10) Last Admin: 07/24/18 11:23 Dose: 5 mg Pantoprazole Sodium (Protonix Ec Tab) 40 mg PO ACB [facility] Last Admin: 07/24/18 11:23 Dose: 40 mg - Labs Labs: 07/23/18 06:10 07/23/18 06:10 PT 19.1 SECONDS (9.4-12.5) H 07/21/18 06:30 INR 1.69 07/21/18 06:30 APTT 28.2 Seconds (26.9-38.3) 07/19/18 10:35 - Constitutional Appears: No Acute Distress - Head Exam Head Exam: ATRAUMATIC, NORMOCEPHALIC - Eye Exam Eye Exam: EOMI, PERRL - ENT Exam ENT Exam: Mucous Membranes Moist - Neck Exam Neck Exam: Full ROM - Respiratory Exam Respiratory Exam: Clear to Ausculation Bilateral, NORMAL BREATHING PATTERN - Cardiovascular Exam Cardiovascular Exam: REGULAR RHYTHM, +S1, +S2 - GI/Abdominal Exam GI & Abdominal Exam: Soft. absent: Guarding, Rigid - Extremities Exam Extremities Exam: Normal Capillary Refill. absent: Pedal Edema - Neurological Exam Neurological Exam: Alert, Awake, Oriented x3 - Psychiatric Exam Psychiatric exam: Normal Affect, Normal Mood - Skin Skin Exam: Dry, Warm Assessment and Plan - Assessment and Plan (Free Text) Assessment: 53-year old female with accelerated MDS s/p chemotherapy, immunosuppression, lung cancer s/p lobectomy, R breast mastectomy, COPD, endocarditis who presented to [facility] for productive cough, fevers, chills x 1 month. Patient on admission found to be leukopenic and thrombocytopenic. Patient currently undergoing furhter evaluation and monitoring of blood counts as well as possible gb pathology with GI and General Surgery team. Plan: - Continue to monitor platelets, transfuse as needed - Will check Hgb today, plan to transfuse 1 unit pRBC if Hgb <8 - f/u GI and Surgery recommendations - HIDA scan shows normal/patent hepatobiliary scan - Continued work with physical therapy and OOB to chair - Replete and replenish lytes per primary team - conitnue Atarax 25mg BID prn itching
--- NOTE | 2018-07-24 12:08 | PN ---
DATE: 07/24/2018 PULMONARY PROGRESS NOTE REFERRING PHYSICIAN: August Lara MD SUBJECTIVE: The patient is seen lying in bed, no acute distress. No overnight events reported. Reports feeling well today, still has cough and some shortness of breath with exertion. No headache, rhinitis, chest pain, abdominal pain, nausea, vomiting, diarrhea, leg pain or leg swelling reported. OBJECTIVE VITAL SIGNS: Blood pressure 147/65, pulse 81, temperature 98.4 and oxygen saturation 96% on nasal cannula. GENERAL: No acute distress. HEENT: Moist mucous membranes. Crowded airway. NECK: Supple. No JVD. LUNGS: Scattered rhonchi bilaterally. CARDIOVASCULAR: S1 and S2. ABDOMEN: Soft and nontender. No distention. No organomegaly. EXTREMITIES: No bilateral lower extremity edema. NEUROLOGIC: Awake, alert and verbal. Follows commands. MEDICATIONS: Reviewed. Tylenol 650 every 6 hours p.r.n. fever greater than 100.4, Mucomyst 4 mL inhalation twice a day, Norvasc 2.5 mg daily, atenolol 25 mg twice a day, Pulmicort 0.5 mg every 12 hours, dextrose 5%, sodium chloride 0.9% a 1000 mL at 75 mL per hour, Atarax 25 mg twice a day p.r.n., Xopenex 0.63 mg inhalation 3 times a day, Imodium 2 mg p.o. daily p.r.n., Solu-Medrol 40 mg IV push daily, nicotine patch transdermal daily, Zofran 4 mg every 6 hours p.r.n., oxycodone 5 mg every 6 hours p.r.n. and Protonix 40 mg in the morning. LABORATORY DATA: Reviewed. WBC 6.8, RBC 3.29, hemoglobin 10, hematocrit 30.2 and platelets 18. Biliary scan shows normal hepatobiliary scan, cystic duct patent. IMPRESSION AND PLAN: Leukemia, chronic lung disease, neutropenia which has resolved, thrombocytopenia and sepsis. The patient currently no longer on antibiotic therapy. Continue inhaled bronchodilators. Continue current steroid dosage. Continue chest physiotherapy, incentive spirometry use and aspiration precautions. Head of bed elevated at 45 degrees. Physical therapy. Out of bed to chair. Continue Oncology/Hematology followup and Nephrology followup. The patient being followed by Cardiology. This patient was seen and examined with Dr. Maurer. Discussed assessment and plan as described above. This patient was seen and examined by Henry Marquez, nurse practitioner. Discussed assessment and plan as described above. Thank you for this consult and we will follow with you. Henry Marquez APN Solange Maurer MD
[2018-07-24] MEDS: Dextrose 5%/0.9% NS 1,000 ML IV SCH ×2 (12:14→13:16)
--- NOTE | 2018-07-24 12:36 | PN ---
DATE: 07/23/2018 SUBJECTIVE: The patient is seen in medical floor. The patient is stable, comfortable, eating. No respiratory distress. She is clinically better. PHYSICAL EXAMINATION: VITAL SIGNS: Temperature is 98.1, heart rate 71, blood pressure 162/76, respirations 19, saturations 92% on 3 liters. HEAD AND NECK: Normal. No JVD. No thyromegaly. CHEST: Clear bilaterally. CARDIAC: First sound and second sound normal. No murmur, rub, or gallop. ABDOMEN: Soft, nontender. EXTREMITIES: No edema. NEUROLOGIC: Normal. LABORATORY DATA: White count 6.8, hemoglobin 10, hematocrit 30.2, platelets 18,000. Chemistry: Sodium 142, potassium 3.7, chloride 107, bicarb 29, BUN 32, creatinine 0.6. AST 57, ALT 175 is better, improving. Alk phos is normal. IMPRESSION AND PLAN: 1. The patient has community-acquired pneumonia and neutropenic sepsis. She is improved. She is off antibiotics now. 2. Chronic obstructive pulmonary disease. Continue inhaled and intravenous bronchodilators. 3. Pancytopenia secondary to myelodysplasia and chemotherapy related. Continue current therapy as per dev technical mgr. 4. Chronic back pain. Continue oxycodone 5 every 6 hours p.r.n. 5. Hypertension. The patient is stable. She is on atenolol 25 mg twice a day plus Norvasc 2.5 mg once a day. 6. The patient has tobacco addiction or nicotine addiction. Continue NicoDerm CQ. We will encourage the patient to quit smoking. Follow up clinically. She seems better. We will start physical therapy and we will continue current therapy. August Lara MD
[2018-07-24 13:18] LABS: BASO # 0.02 K/mm3 (0.0-2.0); BASO % 0.3 % (0.0-3.0); EOS # 0.1 (0.0-0.7); HEMOGLOBIN 10.7 g/dL (12.0-16.0); LYMPH % 48.5 % (22.0-35.0); MEAN CELL VOLUME 93.4 fl (80.0-105.0); MEAN CORPUSCULAR HEMOGLOBIN 30.5 pg (25.0-35.0); MEAN CORPUSCULAR HGB CONC 32.6 g/dl (31.0-37.0); MONO # 1.1 (0.1-0.6); MONO % 17.8 % (1.0-6.0); RBC 3.51 10^6/uL (3.5-6.1); RED CELL DISTRIBUTION WIDTH 15.7 % (11.5-14.5); WHITE BLOOD COUNT 6.1 10^3/uL (4.5-11.0)
[2018-07-24 13:35] LABS: PLATELET COUNT 13 10^3/uL (120.0-450.0)
[2018-07-24 13:37] LABS: ALBUMIN 2.6 g/dL (3.0-4.8); ALT/SGPT 151 U/L (7-56); AST/SGOT 41 U/L (14-36); BLOOD UREA NITROGEN 24 mg/dL (7-21); CALCIUM 7.7 mg/dL (8.4-10.5); GFR NON-AFRICAN AMERICAN > 60
[2018-07-25] MEDS: Dextrose 5%/0.9% NS 1,000 ML IV SCH (00:12)
--- NOTE | 2018-07-25 01:02 | PN ---
DATE: 07/25/2018 SUBJECTIVE: The patient seen earlier this morning in room 276, bed 2. The patient is doing well. No fevers and chills. No nausea or vomiting. PHYSICAL EXAMINATION VITAL SIGNS: Temperature is 98, blood pressure is 160/70, respiratory rate of 18. HEENT: Unremarkable. NECK: Supple. CARDIOPULMONARY: Heart exam normal S1, S2. LUNGS: Have decreased breath sounds. ABDOMEN: Soft. LABORATORY DATA: Reveals a white count of 6.1, hemoglobin of 10. Chemistries reveals a BUN of 24, creatinine of 0.5. Urinalysis is noted. Serology is negative. Microbiology is noted. MEDICATIONS: Review of orders confirms the antibiotics to be off. ASSESSMENT AND PLAN: This is a 53-year-old female who was seen earlier, was admitted with septic shock, healthcare-associated pneumonia, neutropenic febrile patient with acute kidney injury, now doing much better off of antibiotics, afebrile, and the neutropenia is resolved. The patient is afebrile with a white count of 6.1. Terrance Juan MD
[2018-07-25 07:10] LABS: BASO # 0.01 K/mm3 (0.0-2.0); BASO % 0.2 % (0.0-3.0); EOS % 0.2 % (1.5-5.0); LYMPH # 1.5 (1.2-3.4); LYMPH % 34.7 % (22.0-35.0); MEAN CELL VOLUME 92.5 fl (80.0-105.0); MEAN CORPUSCULAR HEMOGLOBIN 30.1 pg (25.0-35.0); MEAN CORPUSCULAR HGB CONC 32.6 g/dl (31.0-37.0); MONO # 1.2 (0.1-0.6); MONO % 27.6 % (1.0-6.0); RBC 3.32 10^6/uL (3.5-6.1); RED CELL DISTRIBUTION WIDTH 15.3 % (11.5-14.5); WHITE BLOOD COUNT 4.4 10^3/uL (4.5-11.0)
[2018-07-25 07:22] LABS: PLATELET COUNT 9 10^3/uL (120.0-450.0)
[2018-07-25 07:35] LABS: ALB/GLOB RATIO 1.1 (1.1-1.8); ALBUMIN 2.6 g/dL (3.0-4.8); ALT/SGPT 120 U/L (7-56); AST/SGOT 28 U/L (14-36); BLOOD UREA NITROGEN 20 mg/dL (7-21); CALCIUM 8.3 mg/dL (8.4-10.5); GFR NON-AFRICAN AMERICAN > 60
[2018-07-25] MEDS: Levalbuterol 0.63 MG/3 ML Inhal Soln UD IH SCH ×3 (07:59→20:07)
[2018-07-25] MEDS: Budesonide 0.5 mg/2 ml Inhal Susp UD IH SCH ×2 (07:59→20:07)
[2018-07-25] MEDS: Acetylcysteine 20% Inhal Soln (4ml) IH SCH ×2 (07:59→20:08)
[2018-07-25 08:38] LABS: LYMPHOCYTE 67 % (22.0-35.0); MONOCYTE 5 % (1.0-6.0); NEUTROPHIL 28 % (50.0-70.0)
[2018-07-25 08:39] LABS: PLATELET ESTIMATE LOW (NORMAL)
[2018-07-25] MEDS: MethylPREDNISolone 40 mg Vial IVP SCH (09:00)
[2018-07-25] MEDS: Pantoprazole 40 mg EC Tab PO SCH (09:00)
[2018-07-25] MEDS ORDERED: Potassium Chloride 20 mEq ER Tab PO ONE (09:23)
--- NOTE | 2018-07-25 09:53 | CP.PCM.PN ---
Subjective - Date & Time of Evaluation Date of Evaluation: 07/25/18 Time of Evaluation: 09:53 - Subjective Subjective: Leonidas Pardo PGY2 - Heme/Onc Progress Note for Dr. Lopez Patient seen and examined this AM. No acute events overnight reported. Patient denies abdominal discomfort, constipation, diarrhea, nausea, vomiting, fever, chills, headache, vision changes, shortness of breath, abdominal pain. Objective - Vital Signs/Intake and Output Vital Signs (last 24 hours): Temp Pulse Resp BP Pulse Ox 98.9 F 75 20 182/81 H 96 07/25/18 06:00 07/25/18 06:45 07/25/18 06:00 07/25/18 06:45 07/25/18 06:00 Intake and Output: 07/25/18 07/25/18 06:59 18:59 Intake Total 900 Balance 900 - Medications Medications: Current Medications Acetaminophen (Tylenol 325mg Tab) 650 mg PO Q6H PRN PRN Reason: Fever >100.4 F Last Admin: 07/17/18 11:32 Dose: 650 mg Acetylcysteine (Acetylcysteine 20%) 4 ml IH BIDRESP [facility] Last Admin: 07/25/18 07:59 Dose: 4 ml Amlodipine Besylate (Norvasc) 5 mg PO DAILY [facility] Last Admin: 07/25/18 09:00 Dose: 5 mg Atenolol (Tenormin) 25 mg PO BID [facility] Last Admin: 07/25/18 09:00 Dose: 25 mg Budesonide (Pulmicort Respules) 0.5 mg IH [id number] [facility] Last Admin: 07/25/18 07:59 Dose: 0.5 mg Clonazepam (Klonopin) 0.5 mg PO BID [facility]; Protocol Clonidine HCl (Catapres-Tts2 0.2 Mg/24 Hr) 1 patch TD Q7D@1000 [facility] Hydralazine HCl (Apresoline) 10 mg PO Q4H PRN PRN Reason: for sbp>160 Hydroxyzine HCl (Atarax) 25 mg PO BID PRN PRN Reason: Itching / Pruritus Last Admin: 07/24/18 11:23 Dose: 25 mg Dextrose/Sodium Chloride (Dextrose 5%/0.9% Ns 1000 Ml) 1,000 mls @ 75 mls/hr IV .[id number] [facility] Last Admin: 07/25/18 00:12 Dose: 75 mls/hr Levalbuterol HCl (Xopenex) 0.63 mg IH TIDRESP [facility] Last Admin: 07/25/18 07:59 Dose: 0.63 mg Loperamide HCl (Imodium) 2 mg PO DAILY PRN PRN Reason: Diarrhea Last Admin: 07/24/18 11:24 Dose: 2 mg Methylprednisolone (Solu-Medrol) 40 mg IVP DAILY [facility] Last Admin: 07/25/18 09:00 Dose: 40 mg Mirtazapine (Remeron) 15 mg PO HS [facility] Nicotine (Nicoderm Cq) 1 patch TD DAILY [facility] Last Admin: 07/25/18 09:00 Dose: 1 patch Ondansetron HCl (Zofran Odt) 4 mg PO Q6H PRN PRN Reason: Nausea/Vomiting Last Admin: 07/24/18 13:16 Dose: 4 mg Oxycodone HCl (Oxycodone Immediate Release Tab) 5 mg PO Q6H PRN PRN Reason: Pain, severe (8-10) Last Admin: 07/24/18 11:23 Dose: 5 mg Pantoprazole Sodium (Protonix Ec Tab) 40 mg PO ACB [facility] Last Admin: 07/25/18 09:00 Dose: 40 mg - Labs Labs: 07/25/18 06:50 07/25/18 06:50 PT 19.1 SECONDS (9.4-12.5) H 07/21/18 06:30 INR 1.69 07/21/18 06:30 APTT 28.2 Seconds (26.9-38.3) 07/19/18 10:35 - Constitutional Appears: Older Than Stated Age - Head Exam Head Exam: ATRAUMATIC, NORMOCEPHALIC - Eye Exam Eye Exam: EOMI, PERRL - ENT Exam ENT Exam: Mucous Membranes Moist - Neck Exam Neck Exam: Full ROM - Respiratory Exam Respiratory Exam: Clear to Ausculation Bilateral, NORMAL BREATHING PATTERN - Cardiovascular Exam Cardiovascular Exam: REGULAR RHYTHM, +S1, +S2 - GI/Abdominal Exam GI & Abdominal Exam: Soft, Normal Bowel Sounds. absent: Tenderness - Neurological Exam Neurological Exam: Alert, Awake, Oriented x3 Additional comments: motor and sensory grossly intact - Psychiatric Exam Psychiatric exam: Normal Affect, Normal Mood - Skin Skin Exam: Dry, Warm Assessment and Plan - Assessment and Plan (Free Text) Assessment: 53-year old female with accelerated MDS s/p chemotherapy, immunosuppression, lung cancer s/p lobectomy, R breast mastectomy, COPD, endocarditis who presented to [facility] [place] for productive cough, fevers, chills x 1 month. Patient on admission found to be leukopenic and thrombocytopenic. Patient has required blood products throughout admission. Thrombocytopenia continues to be an issue s/p transfusion. Plan: - Continue to monitor platelets, transfuse as needed - Today Platelts are 13 with manual count - Likely transfuse 1 unit Platelets today - Continue to monitor Hgb, plan to transfuse 1 unit pRBC if Hgb <8 - f/u GI and Surgery recommendations - Continued work with physical therapy and OOB to chair - Replete and replenish lytes per primary team - conitnue Atarax 25mg BID prn itching
[2018-07-25] MEDS ORDERED: DiphenhydrAMINE 50 mg/ml Inj IVP ONE (10:36)
--- NOTE | 2018-07-25 12:40 | PN ---
DATE: 07/24/2018 SUBJECTIVE: She feels better. She feels not ready to discharge home. She still has some cough, but she feels a lot better than before. PHYSICAL EXAMINATION: VITAL SIGNS: Temperature 98.4, heart rate is 81, blood pressure 166/78, respirations ____, 96% saturation on 3 L. NECK: Normal. No JVD. No thyromegaly. CHEST: Clear bilateral. CARDIAC: First sound, second sound normal. No murmur, rub, or gallop. ABDOMEN: Soft, nontender. EXTREMITIES: No edema. NEUROLOGICAL: Generally weak, but she is alert, awake, oriented x3. LABORATORY DATA: White count 6.1, hemoglobin 10.7, hematocrit 32.8, platelets 13. Chemistry, sodium 142, potassium 3.3, chloride 111, bicarb 29, BUN 24, creatinine 0.5. Her blood sugar was 101 and it went up to 375, on repeat it was normal, it is in the 100 range. The liver enzymes are improving. Her bilirubin is 0.9 normal. AST 41, ALT 151, alk phos 125, which is normal. IMPRESSION AND PLAN: 1. Community-acquired pneumonia, in immunocompromised patient. She finished Merrem for seven days and doxycycline. She is stable now breathing-cornell. The patient is still on inhaled bronchodilators and Solu-Medrol 40 once a day. 2. The patient has nicotine addictions. Continue Nicoderm patch. 3. Hypertension, still running high. She is on atenolol twice a day plus Norvasc 2.5, we will increase that to 5 mg and give her clonidine p.r.n. for systolic 170 and above. We will keep monitoring her blood pressures, could be due to anxiety or depression. The patient has multiple cancers and multiple admissions. We will get Psychiatric consult, Dr. Rivera to see her. Meanwhile, we will consider adding Klonopin for her and Remeron for depression and helping her appetite. 4. Pancytopenia secondary to underlying malignancy. She has myelodysplastic syndrome, she had cancer in the past with multiple doses of chemo. Dr. Lopez on the case. Continue monitor condition with him. Continue current therapy. We will consider placements or rehabilitation if stable. Please be advised, this note is for 07/24/2018. August Lara MD
--- NOTE | 2018-07-25 13:16 | PN ---
DATE: 07/25/2018 REASON FOR THE CONSULTATION AND FOLLOWUP: Cardiac evaluation, admitted with chest pain, pancytopenic, leukemia. SUBJECTIVE: The patient denies any chest pain, shortness of breath, or any palpitation. PHYSICAL EXAMINATION: GENERAL: Not in apparent distress. VITAL SIGNS: Temperature afebrile, heart rate 75, blood pressure 182/81. HEENT: PERRLA. Extraocular muscles intact. NECK: Supple. No carotid bruits or thyromegaly. CHEST: Clear to auscultation. HEART: S1, S2. Regular. ABDOMEN: Soft. EXTREMITIES: Clubbing,cyanosis negative. LABORATORY DATA: Blood workup: WBC 4.4, hemoglobin 10, hematocrit 30.7, platelet count 9. Chemistry showed sodium 142, potassium 3.4, chloride 109, carbon dioxide 31, anion gap of 7, BUN 20, creatinine 0.9. Total protein 5, albumin 2.6, albumin globulin ratio 1.1. IMPRESSION: Pancytopenia, neutropenia, severe thrombocytopenia, hypokalemia, protein calorie malnutrition. Chest pain atypical, musculoskeletal, tenderness in the chest, history of breast cancer status post lumpectomy, 2003 history of lung cancer status post chemotherapy, recently the patient had myelodysplastic syndrome, now it has turned into leukemia, admitted with status post chemotherapy, pancytopenia, severe protein calorie malnutrition as mentioned. RECOMMENDATIONS: Increase nutritional support, continue Ensure. Because of the severe thrombocytopenia cannot give NSAID for musculoskeletal pain. So far no evidence of acute CT. Close followup with Hematology-Oncology. The patient had echocardiography 07/17/2018 that showed ejection fraction of 45 to 50%, trace aortic regurgitation, moderate mitral regurgitation, [id number]-[id number] tricuspid regurgitation, RV systolic pressure of 31. CV status is stable. Continue Tenormin 25 mg p.o. b.i.d. We will optimize hypertensive medication. The patient is on Nicoderm patch and is on amlodipine for blood pressure. We will put clonidine patch #2 in addition to p.r.n. medication. We will follow up with you. We will put p.r.n. hydralazine for systolic more than 170 in addition to clonidine patch. We will reassess the requirement of the blood pressure medication. We will put BENJAMIN or ARBs. For now, we will put clonidine patch as mentioned #2 and hydralazine p.o. p.r.n. We will repeat the blood workup in the morning. Overall, the patient's condition is critical. 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 Followup Hematology-Oncology. We will supplement potassium also. Thank you, Dr. Lara, for providing us the opportunity in taking care of the patient, Codi Pope. Solange Langley MD
--- NOTE | 2018-07-25 15:42 | PN ---
DATE: 07/25/2018 PULMONARY PROGRESS NOTE REFERRING PHYSICIAN: August Lara MD SUBJECTIVE: The patient is seen sitting up in bed. No acute distress. No overnight events reported. Reports feeling well today, still has cough and some shortness of breath with exertion. No headache, rhinitis, chest pain, abdominal pain, nausea, vomiting, diarrhea, leg pain or leg swelling reported. OBJECTIVE VITAL SIGNS: Blood pressure 182/81, pulse 75, temperature 98.9 and oxygen saturation 92% on room air. GENERAL: No acute distress. HEENT: Moist mucous membranes. Crowded airway. NECK: Supple. No JVD. LUNGS: Scattered rhonchi bilaterally. CARDIOVASCULAR: S1 and S2. ABDOMEN: Soft and nontender. No distention. No organomegaly. EXTREMITIES: No bilateral lower extremity edema. NEUROLOGIC: Awake, alert and verbal. Follows commands. MEDICATIONS: Reviewed. Tylenol 650 every 6 hours p.r.n. fever greater than 100.4, Mucomyst 4 mL inhalation twice a day, Norvasc 5 mg daily, atenolol 25 mg twice a day, Pulmicort 0.5 mg every 12 hours, Klonopin 0.5 mg twice a day, Clonidine patch 0.2 mg every 7 days, dextrose 5%, sodium chloride 0.9%, normal saline 1000 mL at 75 mL per hour, hydralazine 10 mg every 4 hours p.r.n., for systolic blood pressure greater than 160, Atarax 25 mg twice a day p.r.n., Xopenex 0.63 mg inhalation 3 times a day, Imodium 2 mg p.o. daily p.r.n., Solu-Medrol 40 mg IV push daily, Remeron 15 mg at bedtime, nicotine patch transdermal daily, Zofran 4 mg every 6 hours p.r.n., oxycodone 5 mg every 6 hours p.r.n. and Protonix 40 mg daily. LABORATORY DATA: Reviewed. WBC 4.4, RBC 3.32, hemoglobin 10, hematocrit 30.7 and platelets 9 manual, platelet count 13. Sodium 143, potassium 3.4, chloride 109, carbon dioxide 31, anion gap 7, BUN 20, creatinine 0.5, GFR is greater than 60, random glucose 125, calcium 8.3, total bilirubin 0.9, AST 28, ALT 120, alkaline phosphatase 102, total protein 5, albumin 2.6, globulin 2.4 and albumin-globulin ratio 1.1. IMPRESSION AND PLAN: Leukemia, chronic lung disease, neutropenia which has resolved, thrombocytopenia and sepsis. No longer antibiotic therapy. Continue inhaled bronchodilators. Current steroid dosing, chest physiotherapy, incentive spirometry use and aspiration precautions. Head of bed elevated at 45 degrees. Physical therapy. Out of bed to chair. We will add Atrovent nebulizer for patient, will add Singulair daily. Nasal saline spray also ordered. Procalcitonin and chest x-ray for the morning. Case discussed with Dr. Lopez today. The patient scheduled for plateletpheresis today. This patient was seen and examined with Dr. Maurer. Discussed assessment and plan as described above. This patient was seen and examined by Henry Marquez, nurse practitioner. Discussed assessment and plan as described above. Thank you for this consult and we will follow with you. Henry Marquez APN Solange Maurer MD JONAH
--- NOTE | 2018-07-25 15:48 | CP.PCM.PCO ---
Physician Communication Note - Physician Communication Note Physician Communication Note: pt declined psych services, denied SI/HI, no psychosis, reconsult if needs
[2018-07-25] MEDS: oxyCODONE 5 mg Immediate Release Tab PO PRN ×2 (17:28→23:22)
[2018-07-25] MEDS: Ipratropium 0.02% Inhal Soln (0.5 mg/2.5 ml) UD IH SCH (20:08)
--- NOTE | 2018-07-25 22:16 | CP.PCM.PN ---
Subjective - Date & Time of Evaluation Date of Evaluation: 07/25/18 Time of Evaluation: 22:15 - Subjective Subjective: House staff paged as patient is complaining of L sided chest pain. Patient seen and examined. Patient is a 53 year old female with PMH of high grade myelodysplastic syndrome s/p chemotherapy 1 month prior, lung cancer s/p lobectomy, R breast mastectomy, COPD, endocarditis admitted for management of COPD exacerbation and b/l infiltrates on CXR. Patient describes the CP as a L- sided pressure which is similar to what she had on admission. She otherwise denies dyspnea, fever/chills, diaphoresis, abd pain/nausea/vomiting, or new urinary complaints. Objective - Vital Signs/Intake and Output Vital Signs (last 24 hours): Temp Pulse Resp BP Pulse Ox 98.6 F 84 16 136/74 96 07/25/18 17:36 07/25/18 17:36 07/25/18 17:36 07/25/18 17:36 07/25/18 06:00 Intake and Output: 07/25/18 07/26/18 18:59 06:59 Intake Total 256 Balance 256 - Medications Medications: Current Medications Acetaminophen (Tylenol 325mg Tab) 650 mg PO Q6H PRN PRN Reason: Fever >100.4 F Last Admin: 07/17/18 11:32 Dose: 650 mg Acetylcysteine (Acetylcysteine 20%) 4 ml IH BIDRESP [facility] Last Admin: 07/25/18 20:08 Dose: Not Given Amlodipine Besylate (Norvasc) 5 mg PO DAILY [facility] Last Admin: 07/25/18 09:00 Dose: 5 mg Atenolol (Tenormin) 25 mg PO BID [facility] Last Admin: 07/25/18 17:28 Dose: 25 mg Budesonide (Pulmicort Respules) 0.5 mg IH [id number] [facility] Last Admin: 07/25/18 20:07 Dose: Not Given Clonazepam (Klonopin) 0.5 mg PO BID [facility]; Protocol Last Admin: 07/25/18 17:28 Dose: 0.5 mg Clonidine HCl (Catapres-Tts2 0.2 Mg/24 Hr) 1 patch TD Q7D@1000 [facility] Last Admin: 07/25/18 09:55 Dose: 1 patch Hydralazine HCl (Apresoline) 10 mg PO Q4H PRN PRN Reason: for sbp>160 Hydroxyzine HCl (Atarax) 25 mg PO BID PRN PRN Reason: Itching / Pruritus Last Admin: 07/24/18 11:23 Dose: 25 mg Dextrose/Sodium Chloride (Dextrose 5%/0.9% Ns 1000 Ml) 1,000 mls @ 75 mls/hr IV .[id number] [facility] Last Admin: 07/25/18 00:12 Dose: 75 mls/hr Ipratropium [place] (Atrovent) 0.5 mg IH TIDRESP [facility] Last Admin: 07/25/18 20:08 Dose: Not Given Levalbuterol HCl (Xopenex) 0.63 mg IH TIDRESP [facility] Last Admin: 07/25/18 20:07 Dose: Not Given Loperamide HCl (Imodium) 2 mg PO DAILY PRN PRN Reason: Diarrhea Last Admin: 07/24/18 11:24 Dose: 2 mg Methylprednisolone (Solu-Medrol) 40 mg IVP DAILY [facility] Last Admin: 07/25/18 09:00 Dose: 40 mg Mirtazapine (Remeron) 15 mg PO HS [facility] Montelukast Sodium (Singulair) 10 mg PO HS [facility] Nicotine (Nicoderm Cq) 1 patch TD DAILY [facility] Last Admin: 07/25/18 11:23 Dose: Not Given Ondansetron HCl (Zofran Odt) 4 mg PO Q6H PRN PRN Reason: Nausea/Vomiting Last Admin: 07/24/18 13:16 Dose: 4 mg Oxycodone HCl (Oxycodone Immediate Release Tab) 5 mg PO Q6H PRN PRN Reason: Pain, severe (8-10) Last Admin: 07/25/18 17:28 Dose: 5 mg Pantoprazole Sodium (Protonix Ec Tab) 40 mg PO ACB [facility] Last Admin: 07/25/18 09:00 Dose: 40 mg Sodium Chloride ([place] Nasal [place]) 0 ml NS TID [facility] Last Admin: 07/25/18 17:53 Dose: Not Given - Labs Labs: 07/25/18 06:50 07/25/18 06:50 PT 19.1 SECONDS (9.4-12.5) H 07/21/18 06:30 INR 1.69 07/21/18 06:30 APTT 28.2 Seconds (26.9-38.3) 07/19/18 10:35 - Constitutional Appears: No Acute Distress, Other (pleasant, A/o x 3, in no acute respiratory distress, able to protect airway) - Head Exam Head Exam: ATRAUMATIC, NORMOCEPHALIC - Eye Exam Eye Exam: EOMI, PERRL - ENT Exam ENT Exam: Mucous Membranes Moist - Respiratory Exam Respiratory Exam: Clear to Ausculation Bilateral. absent: Rales, Rhonchi, Wheezes - Cardiovascular Exam Cardiovascular Exam: REGULAR RHYTHM, RRR, +S1, +S2. absent: Gallop, Rubs, Murmur - GI/Abdominal Exam GI & Abdominal Exam: Soft, Normal Bowel Sounds. absent: Guarding, Tenderness - Neurological Exam Neurological Exam: Alert, Awake, Oriented x3 - Skin Skin Exam: Dry, Warm Assessment and Plan - Assessment and Plan (Free Text) Plan: Stat EKG ordered, showed no changes from prior EKGs and no concerning ST or T wave changes Repeat Troponin negative. Patient states CP has improved Informed nursing staff to continue to monitor and notify of any changes.
--- NOTE | 2018-07-25 22:38 | PN ---
DATE: 07/25/2018 SUBJECTIVE: The patient is in bed, no acute distress, nontoxic. PHYSICAL EXAMINATION: VITAL SIGNS: Temperature 98, blood pressure 130/70, respiratory rate of 18, and heart rate of 84. HEENT: Unremarkable. NECK: Supple. LUNGS: Decreased breath sounds. HEART: Normal S1 and S2. ABDOMEN: Soft. LABORATORY DATA: Reveals the patient's white count is 4.4. Chemistries are noted. Review of orders reveals the patient to be off of antibiotics. Dr. Nicole Linares communication report is reviewed. Dr. Maurer's note is reviewed. ASSESSMENT AND PLAN: A 53-year-old female seen early this morning who was admitted with septic shock, healthcare-associated pneumonia, and febrile neutropenia. The patient with acute kidney injury much better, now off of antibiotics. Neutropenia has resolved. The patient is at risk for developing nosocomial infections. Terrance Juan MD
--- NOTE | 2018-07-25 23:56 | CP.PCM.PN ---
Subjective - Date & Time of Evaluation Date of Evaluation: 07/25/18 Time of Evaluation: 23:55 - Subjective Subjective: Patient was seen at bedside. Because troponin and EKG were ordered by resident physician. She has no complaints now . States that she had racing of heart earlier. As per nurse, patient had chest pain. Medical record was reviewed. This 53 year old woman was admitted with sob,generalized fatigue, Pneumonia. Has PMH of Asthma, Leukemia, Sickle cell disease,right breast mastectomy, lung transplant,former smoker. Objective - Vital Signs/Intake and Output Vital Signs (last 24 hours): Temp Pulse Resp BP Pulse Ox 98.6 F 84 16 136/74 96 07/25/18 17:36 07/25/18 17:36 07/25/18 17:36 07/25/18 17:36 07/25/18 06:00 Intake and Output: 07/25/18 07/26/18 18:59 06:59 Intake Total 256 Balance 256 - Medications Medications: Current Medications Acetaminophen (Tylenol 325mg Tab) 650 mg PO Q6H PRN PRN Reason: Fever >100.4 F Last Admin: 07/17/18 11:32 Dose: 650 mg Acetylcysteine (Acetylcysteine 20%) 4 ml IH BIDRESP [facility] Last Admin: 07/25/18 20:08 Dose: Not Given Amlodipine Besylate (Norvasc) 5 mg PO DAILY [facility] Last Admin: 07/25/18 09:00 Dose: 5 mg Atenolol (Tenormin) 25 mg PO BID [facility] Last Admin: 07/25/18 17:28 Dose: 25 mg Budesonide (Pulmicort Respules) 0.5 mg IH [id number] [facility] Last Admin: 07/25/18 20:07 Dose: Not Given Clonazepam (Klonopin) 0.5 mg PO BID [facility]; Protocol Last Admin: 07/25/18 17:28 Dose: 0.5 mg Clonidine HCl (Catapres-Tts2 0.2 Mg/24 Hr) 1 patch TD Q7D@1000 [facility] Last Admin: 07/25/18 09:55 Dose: 1 patch Hydralazine HCl (Apresoline) 10 mg PO Q4H PRN PRN Reason: for sbp>160 Hydroxyzine HCl (Atarax) 25 mg PO BID PRN PRN Reason: Itching / Pruritus Last Admin: 07/24/18 11:23 Dose: 25 mg Dextrose/Sodium Chloride (Dextrose 5%/0.9% Ns 1000 Ml) 1,000 mls @ 75 mls/hr IV .[id number] [facility] Last Admin: 07/25/18 00:12 Dose: 75 mls/hr Ipratropium [place] (Atrovent) 0.5 mg IH TIDRESP [facility] Last Admin: 07/25/18 20:08 Dose: Not Given Levalbuterol HCl (Xopenex) 0.63 mg IH TIDRESP [facility] Last Admin: 07/25/18 20:07 Dose: Not Given Loperamide HCl (Imodium) 2 mg PO DAILY PRN PRN Reason: Diarrhea Last Admin: 07/24/18 11:24 Dose: 2 mg Methylprednisolone (Solu-Medrol) 40 mg IVP DAILY [facility] Last Admin: 07/25/18 09:00 Dose: 40 mg Mirtazapine (Remeron) 15 mg PO HS [facility] Last Admin: 07/25/18 23:03 Dose: 15 mg Montelukast Sodium (Singulair) 10 mg PO HS [facility] Last Admin: 07/25/18 23:03 Dose: 10 mg Nicotine (Nicoderm Cq) 1 patch TD DAILY [facility] Last Admin: 07/25/18 11:23 Dose: Not Given Ondansetron HCl (Zofran Odt) 4 mg PO Q6H PRN PRN Reason: Nausea/Vomiting Last Admin: 07/24/18 13:16 Dose: 4 mg Oxycodone HCl (Oxycodone Immediate Release Tab) 5 mg PO Q6H PRN PRN Reason: Pain, severe (8-10) Last Admin: 07/25/18 23:22 Dose: 5 mg Pantoprazole Sodium (Protonix Ec Tab) 40 mg PO ACB [facility] Last Admin: 07/25/18 09:00 Dose: 40 mg Sodium Chloride ([place] Nasal [place]) 0 ml NS TID [facility] Last Admin: 07/25/18 17:53 Dose: Not Given - Labs Labs: 07/25/18 06:50 07/25/18 06:50 PT 19.1 SECONDS (9.4-12.5) H 07/21/18 06:30 INR 1.69 07/21/18 06:30 APTT 28.2 Seconds (26.9-38.3) 07/19/18 10:35 - Constitutional Appears: Well, No Acute Distress - Head Exam Head Exam: ATRAUMATIC, NORMAL INSPECTION, NORMOCEPHALIC - Eye Exam Eye Exam: Normal appearance - ENT Exam ENT Exam: Normal External Ear Exam - Neck Exam Neck Exam: Normal Inspection - Respiratory Exam Respiratory Exam: NORMAL BREATHING PATTERN - Cardiovascular Exam Cardiovascular Exam: absent: JVD - GI/Abdominal Exam GI & Abdominal Exam: absent: Distended - Rectal Exam Rectal Exam: Deferred - Exam Additional comments: Deferred. - Extremities Exam Extremities Exam: Normal Inspection - Back Exam Back Exam: NORMAL INSPECTION - Neurological Exam Neurological Exam: Alert, Awake, Oriented x3 - Psychiatric Exam Psychiatric exam: Normal Affect, Normal Mood - Skin Skin Exam: Normal Color Assessment and Plan - Assessment and Plan (Free Text) Assessment: Chest pain-resolved. Palpitation CAP HTN Pancytopenia Leukemia. Asthma Sickle cell disease. Plan: Trop 0.07. EKG----->NO acute changes noted. --> repeat trop and EKG in AM. Continue present management.
[2018-07-26] MEDS: Acetylcysteine 20% Inhal Soln (4ml) IH SCH ×2 (07:15→19:32)
[2018-07-26] MEDS: Levalbuterol 0.63 MG/3 ML Inhal Soln UD IH SCH ×3 (07:19→19:32)
[2018-07-26] MEDS: Budesonide 0.5 mg/2 ml Inhal Susp UD IH SCH ×2 (07:19→19:32)
[2018-07-26] MEDS: Ipratropium 0.02% Inhal Soln (0.5 mg/2.5 ml) UD IH SCH ×3 (07:19→19:31)
[2018-07-26 07:58] LABS: BASO # 0.01 K/mm3 (0.0-2.0); BASO % 0.2 % (0.0-3.0); LYMPH # 2.9 (1.2-3.4); LYMPH % 58.9 % (22.0-35.0); MEAN CELL VOLUME 90.8 fl (80.0-105.0); MEAN CORPUSCULAR HEMOGLOBIN 30.7 pg (25.0-35.0); MEAN CORPUSCULAR HGB CONC 33.8 g/dl (31.0-37.0); MEAN PLATELET VOLUME 9.3 fl (7.0-11.0); MONO # 0.7 (0.1-0.6); MONO % 13.4 % (1.0-6.0); RBC 3.26 10^6/uL (3.5-6.1); RED CELL DISTRIBUTION WIDTH 14.9 % (11.5-14.5); WHITE BLOOD COUNT 4.9 10^3/uL (4.5-11.0)
[2018-07-26] MEDS: Pantoprazole 40 mg EC Tab PO SCH (08:00)
[2018-07-26 08:11] LABS: PLATELET COUNT 33 10^3/uL (120.0-450.0)
[2018-07-26 08:13] LABS: ALBUMIN 2.5 g/dL (3.0-4.8); ALT/SGPT 96 U/L (7-56); AST/SGOT 27 U/L (14-36); BLOOD UREA NITROGEN 15 mg/dL (7-21); CALCIUM 7.9 mg/dL (8.4-10.5); GFR NON-AFRICAN AMERICAN > 60
[2018-07-26 08:39] LABS: TROPONIN I 0.12 ng/mL
--- NOTE | 2018-07-26 08:39 | CP.PCM.PN ---
Subjective - Date & Time of Evaluation Date of Evaluation: 07/26/18 Time of Evaluation: 06:55 - Subjective Subjective: Awake, alert, no distress Reason for consultation and follow up: Cardiac evaluation of chest pain, admitted for neutropenic sepsis recently diagnosed with leukemia. History of right breast cancer, status post right lumpectomy in 2003, post lung cancer, post chemotherapy. Seen and examined by me and Dr. Langley Objective - Vital Signs/Intake and Output Vital Signs (last 24 hours): Temp Pulse Resp BP Pulse Ox 97.9 F 62 20 171/83 H 98 07/26/18 08:24 07/26/18 08:24 07/26/18 08:24 07/26/18 08:24 07/26/18 08:24 Intake and Output: 07/26/18 07/26/18 06:59 18:59 Intake Total 240 Output Total 200 Balance 40 - Medications Medications: Current Medications Acetaminophen (Tylenol 325mg Tab) 650 mg PO Q6H PRN PRN Reason: Fever >100.4 F Last Admin: 07/17/18 11:32 Dose: 650 mg Acetylcysteine (Acetylcysteine 20%) 4 ml IH BIDRESP [facility] Last Admin: 07/26/18 07:15 Dose: Not Given Amlodipine Besylate (Norvasc) 5 mg PO DAILY [facility] Last Admin: 07/25/18 09:00 Dose: 5 mg Atenolol (Tenormin) 25 mg PO BID [facility] Last Admin: 07/25/18 17:28 Dose: 25 mg Budesonide (Pulmicort Respules) 0.5 mg IH [id number] [facility] Last Admin: 07/26/18 07:19 Dose: 0.5 mg Clonazepam (Klonopin) 0.5 mg PO BID [facility]; Protocol Last Admin: 07/25/18 17:28 Dose: 0.5 mg Clonidine HCl (Catapres-Tts2 0.2 Mg/24 Hr) 1 patch TD Q7D@1000 [facility] Last Admin: 07/25/18 09:55 Dose: 1 patch Hydralazine HCl (Apresoline) 10 mg PO Q4H PRN PRN Reason: for sbp>160 Hydroxyzine HCl (Atarax) 25 mg PO BID PRN PRN Reason: Itching / Pruritus Last Admin: 07/24/18 11:23 Dose: 25 mg Dextrose/Sodium Chloride (Dextrose 5%/0.9% Ns 1000 Ml) 1,000 mls @ 75 mls/hr IV .[id number] [facility] Last Admin: 07/25/18 00:12 Dose: 75 mls/hr Ipratropium [place] (Atrovent) 0.5 mg IH TIDRESP [facility] Last Admin: 07/26/18 07:19 Dose: 0.5 mg Levalbuterol HCl (Xopenex) 0.63 mg IH TIDRESP [facility] Last Admin: 07/26/18 07:19 Dose: 0.63 mg Loperamide HCl (Imodium) 2 mg PO DAILY PRN PRN Reason: Diarrhea Last Admin: 07/24/18 11:24 Dose: 2 mg Methylprednisolone (Solu-Medrol) 40 mg IVP DAILY [facility] Last Admin: 07/25/18 09:00 Dose: 40 mg Mirtazapine (Remeron) 15 mg PO HS [facility] Last Admin: 07/25/18 23:03 Dose: 15 mg Montelukast Sodium (Singulair) 10 mg PO HS [facility] Last Admin: 07/25/18 23:03 Dose: 10 mg Nicotine (Nicoderm Cq) 1 patch TD DAILY [facility] Last Admin: 07/25/18 11:23 Dose: Not Given Ondansetron HCl (Zofran Odt) 4 mg PO Q6H PRN PRN Reason: Nausea/Vomiting Last Admin: 07/24/18 13:16 Dose: 4 mg Oxycodone HCl (Oxycodone Immediate Release Tab) 5 mg PO Q6H PRN PRN Reason: Pain, severe (8-10) Last Admin: 07/25/18 23:22 Dose: 5 mg Pantoprazole Sodium (Protonix Ec Tab) 40 mg PO ACB [facility] Last Admin: 07/25/18 09:00 Dose: 40 mg Sodium Chloride ([place] Nasal [place]) 0 ml NS TID [facility] Last Admin: 07/25/18 17:53 Dose: Not Given - Labs Labs: 07/26/18 07:45 07/26/18 07:45 PT 19.1 SECONDS (9.4-12.5) H 07/21/18 06:30 INR 1.69 07/21/18 06:30 APTT 28.2 Seconds (26.9-38.3) 07/19/18 10:35 - Constitutional Appears: Non-toxic, No Acute Distress - Head Exam Head Exam: NORMAL INSPECTION, NORMOCEPHALIC - Eye Exam Eye Exam: Normal appearance Pupil Exam: NORMAL ACCOMODATION - ENT Exam ENT Exam: Mucous Membranes Moist, Normal Exam - Respiratory Exam Respiratory Exam: Clear to Ausculation Bilateral, NORMAL BREATHING PATTERN - Cardiovascular Exam Cardiovascular Exam: +S1, +S2 - GI/Abdominal Exam GI & Abdominal Exam: Soft, Normal Bowel Sounds - Extremities Exam Extremities Exam: Full ROM, Normal Capillary Refill - Neurological Exam Neurological Exam: Alert, Awake, Oriented x3 - Psychiatric Exam Psychiatric exam: Normal Affect, Normal Mood - Skin Skin Exam: Dry, Normal Color, Warm Assessment and Plan - Assessment and Plan (Free Text) Assessment: A 53 year old female who was admitted due to chest pain, fever, chills probably neutropenic sepsis. Chest pain muskuloskeletal in nature, no evidence of myocardial ischemia. History of right breast cancer, status post right lumpectomy in 2003, post lung cancer, post chemotherapy, recently diagnosed with leukemia. Echo done on 07/17/18 showed LVEF 45-50%, trace AR, moderate MR, mild to moderate TR, EVSP 31mmHg. No aspirin as patient has low platelet count.Chest X ray on admission showed bilateral bibasalar infiltrate. Being followed up by hematology/oncology. ID on consult. Pulmonary on consult. Repeat Chest X ray showed no significant change on left and right lower lobe infiltrate. Off Neutr openic precaution, Afebrile, low platelet. Cardiac status stable, had episode of left side chest pain last night musculoskeletal in nature. Plan: No distress Heart rate stable Uncontrolled blood pressure Clonidine patch increased and PRN Hydralazine Cardiac status stable On Tenormin 25 mg BID,Clonidine 0.2mg/hr patch daily, Hydralazine PRN Solumedrol 40 mg daily, Nicoderm patch daily Continue current treatment Continue current medications Nutritional support H/H stable, low platelet Followed up by Oncology/hematology Will follow up Plan and treatment discussed with Dr. Langley
[2018-07-26] MEDS: MethylPREDNISolone 40 mg Vial IVP SCH (09:36)
--- NOTE | 2018-07-26 11:10 | CARD ---
APPROVED REPORT Date of service: 07/26/2018 EKG Measurement Heart [id number] <Conclusion> Normal sinus rhythm Possible Left atrial enlargement Rightward axis T wave abnormality, consider anterior ischemia Abnormal ECG
--- NOTE | 2018-07-26 11:15 | CARD ---
APPROVED REPORT Date of service: 07/25/2018 EKG Measurement Heart [id number] <Conclusion> Sinus rhythm with short MN Otherwise normal ECG
[2018-07-26] MEDS ORDERED: Potassium Chloride 20 mEq ER Tab PO ONE ×2 (11:23→17:00)
--- NOTE | 2018-07-26 12:11 | PN ---
DATE: 07/25/2018 SUBJECTIVE: The patient is a 53-year-old female. She is comfortable. No distress. She is feeling very weak; otherwise, stable. Blood pressure seems to be running high, but she has no other complaint other than general weakness. PHYSICAL EXAMINATION: VITAL SIGNS: Temperature 98.6, heart rate 84, blood pressure 176/72, respirations 18, saturation 92% on room air. HEAD AND NECK: Normal. No JVD. No thyromegaly. CHEST: Clear bilateral. CARDIAC: First sound and second sound normal. ABDOMEN: Soft, nontender. EXTREMITIES: No edema. NEUROLOGIC: General weakness, but nonfocal. The patient is alert, awake, and oriented x3. LABORATORY STUDIES: White count 4.4; hemoglobin 10; hematocrit 30.7; and platelets 9,000, on the repeat exam, it was 15,000. IMPRESSION AND PLAN: 1. Community-acquired pneumonia in an immunocompromised patient. She is stable. She is off antibiotic now. 2. Pancytopenia versus severe thrombocytopenia. The patient is seen by manager transit for low platelets. No active bleeding. Continue to monitor. We will repeat lab in the morning. The patient had history of transfusions of 1 unit of platelets. 3. She has to discontinue Solu-Medrol. Continue inhaled bronchodilator. 4. Hypertension. Continue Norvasc 5 mg, may increase to 10 mg and atenolol 25 mg b.i.d. We will continue to monitor blood pressure. 5. Anxiety and depression, maybe a Psych consultation may help the patient. We will give the patient Klonopin to see how she deals with that and we will continue current treatment. CURRENT MEDICATIONS: Mucomyst, hydralazine 10 mg IV every 6 hours p.r.n., Atarax, Atrovent, nebulizers, clonidine patch every 7 days, IV fluids, Imodium, Klonopin, Nicoderm, Norvasc 5 mg, [place], Oxycodone, Protonix, Pulmicort, Solu-Medrol, Singulair, Remeron, Xopenex, Zofran, and Tylenol. The patient is also getting Tenormin 25 mg b.i.d. We will continue current medication. ASSESSMENT AND PLAN: The patient will benefit from rehabilitation, physical therapy. I discussed with the patient that. She is thinking about it, but definitely she needs some physical therapy. We will continue to monitor her platelets. We will discharge her once it is okay to discharge her per the oncologist. the patient, she is still on Solu-Medrol intravenous, but we can switch that to oral. August Lara MD
--- NOTE | 2018-07-26 12:24 | PN ---
DATE: 07/26/2018 PULMONARY PROGRESS NOTE REFERRING PHYSICIAN: August Lara MD SUBJECTIVE: The patient is seen sitting up in bed. Reports feeling well today. Still has cough. No headache, rhinitis, chest pain, abdominal pain, nausea, vomiting, diarrhea, leg pain or leg swelling reported. Appetite was well for breakfast this morning. OBJECTIVE GENERAL: No acute distress. VITAL SIGNS: Blood pressure 176/82, pulse 62, temperature 97.9 and oxygen saturation 98% on nasal cannula. HEENT: Moist mucous membranes. Crowded airway. NECK: Supple. No JVD. LUNGS: Scattered rhonchi bilaterally. CARDIOVASCULAR: S1 and S2. ABDOMEN: Soft and nontender. No distention. No organomegaly. EXTREMITIES: No bilateral lower extremity edema. NEUROLOGIC: Awake, alert and verbal. Follows commands. MEDICATIONS: Reviewed. Tylenol 650 mg every 6 hours p.r.n. fever greater than 100.4, Mucomyst 4 mL inhalation twice a day, Norvasc 10 mg daily, atenolol 25 mg twice a day, Pulmicort 0.5 mg inhalation every 12 hours, Klonopin 0.5 mg twice a day, Clonidine 0.2 mg patch every 7 days, dextrose 5%, sodium chloride 0.9% a 1000 mL at 75 mL per hour, hydralazine 10 mg IV push every 6 hours p.r.n., Atarax 25 mg twice a day p.r.n., Atrovent 0.5 mg inhalation 3 times a day, Xopenex 0.63 mg inhalation 3 times a day, Imodium 2 mg p.o. daily p.r.n., Solu-Medrol 40 mg IV push daily, Remeron 15 mg at bedtime, Singulair 10 mg at bedtime, nicotine patch transdermal daily, Zofran 4 mg every 6 hours p.r.n., oxycodone 5 mg every 6 hours p.r.n. and Protonix 40 mg in the morning and sodium chloride nasal spray 3 times a day. LABORATORY DATA: Reviewed. WBC 4.9, RBC 3.26, hemoglobin 10, hematocrit 29.6 and platelets 33. Sodium 140, potassium 3.1, chloride 104, carbon dioxide 34, anion gap 5, BUN 15, creatinine 0.5, GFR is greater than 60, random glucose 94, calcium 7.9, phosphorus 2.9, magnesium 1.4, total bilirubin 0.5, AST 27, ALT 96, alkaline phosphatase 98, troponin 0.12, total protein 5, albumin 2.5, globulin 2.5 and albumin-globulin ratio 1.0. Chest x-ray report pending. EKG shows sinus rhythm which showed TN. IMPRESSION AND PLAN: Leukemia, chronic lung disease, neutropenia which has resolved, thrombocytopenia and sepsis. No longer antibiotic therapy. Continue inhaled bronchodilators. Current steroid dosing, chest physiotherapy, incentive spirometry, aspiration precautions, head of bed elevated at 45 degrees. Physical therapy. Out of bed to chair. Procalcitonin results pending. Chest x-ray results pending. We will followup when available. The patient is also status post . Also noted with hypokalemia this morning, we will give potassium 40 mEq x1 dose and followup with labs in the morning. We will place the patient on antihistamine and Claritin. This patient was seen and examined with Dr. Maurer. Discussed assessment and plan as described above. This patient was seen and examined by Henry Marquez, nurse practitioner. Discussed assessment and plan as described above. Thank you for this consult and we will follow with you. Henry Marquez APN Solange Maurer MD
--- NOTE | 2018-07-26 12:57 | RAD ---
Date of service: 07/26/2018 HISTORY: follow up infiltrate COMPARISON: Chest radiographs 07/20/2018. TECHNIQUE: Chest PA and lateral FINDINGS: Left PICC unchanged in position. LUNGS: Moderate left and [id number] right pleural effusions are appreciated in the interval reflecting interval worsening of bilateral pleural effusions. In addition, mid left pulmonary infiltrate. Underlying airspace disease is not excluded the bilateral bases. No pneumothorax bilaterally. PLEURA: As above. CARDIOVASCULAR: No aortic atherosclerotic calcification present. Cardiac size obscured by effusions. No pulmonary vascular congestion. OSSEOUS STRUCTURES: No significant abnormalities. VISUALIZED UPPER ABDOMEN: Normal. OTHER FINDINGS: None. IMPRESSION: Interval increased bilateral pleural effusions now moderate the left and mild but increased at the right. Persistent mid left pulmonary infiltrate with bibasilar atelectasis or infiltrates not excluded. No pulmonary vascular congestion.
--- NOTE | 2018-07-26 13:23 | PN ---
DATE: 07/26/2018 SUBJECTIVE: The patient is in bed, in no acute distress, nontoxic. PHYSICAL EXAMINATION: VITAL SIGNS: Temperature is 97, blood pressure is 170/80, respiratory rate 20, heart rate of 62. HEENT: Unremarkable. NECK: Supple. LUNGS: Have decreased breath sounds. HEART: Normal S1, S2. ABDOMEN: Soft, nontender. LABORATORY DATA: White count is 4.9, hemoglobin of 10, platelets of 33. BUN of 15, creatinine of 0.5. Urinalysis is noted and microbiology is noted. Review of orders reveals the patient to be off of antibiotics. ASSESSMENT AND PLAN: This is a 53-year-old female, admitted initially with septic shock with healthcare-associated pneumonia, neutropenic febrile, patient with acute kidney injury, currently now off of antibiotics, afebrile. White count is normal. She is at risk for developing nosocomial infections. Terrance Juan MD
[2018-07-26] MEDS: oxyCODONE 5 mg Immediate Release Tab PO PRN ×2 (14:34→21:18)
--- NOTE | 2018-07-26 15:31 | CP.PCM.PN ---
Subjective - Date & Time of Evaluation Date of Evaluation: 07/26/18 Time of Evaluation: 08:00 - Subjective Subjective: Leonidas Pardo PGY2 - Heme/Onc Progress Note for Dr. Lopez Patient seen and evaluated this AM. NO acute events reported overnight. Patient indicates she feels good and has slightly more energy. Denies chest pain, trouble breathing, abdominal pain, nausea, vomiting, fever, chills. Objective - Vital Signs/Intake and Output Vital Signs (last 24 hours): Temp Pulse Resp BP Pulse Ox 97.9 F 62 20 176/82 H 98 07/26/18 08:24 07/26/18 08:24 07/26/18 08:24 07/26/18 09:36 07/26/18 08:24 Intake and Output: 07/26/18 07/26/18 06:59 18:59 Intake Total 240 Output Total 200 Balance 40 - Medications Medications: Current Medications Acetaminophen (Tylenol 325mg Tab) 650 mg PO Q6H PRN PRN Reason: Fever >100.4 F Last Admin: 07/17/18 11:32 Dose: 650 mg Acetylcysteine (Acetylcysteine 20%) 4 ml IH BIDRESP [facility] Last Admin: 07/26/18 07:15 Dose: Not Given Amlodipine Besylate (Norvasc) 10 mg PO DAILY [facility] Last Admin: 07/26/18 09:36 Dose: 10 mg Atenolol (Tenormin) 25 mg PO BID [facility] Last Admin: 07/26/18 09:36 Dose: 25 mg Budesonide (Pulmicort Respules) 0.5 mg IH [id number] [facility] Last Admin: 07/26/18 07:19 Dose: 0.5 mg Clonazepam (Klonopin) 0.5 mg PO BID [facility]; Protocol Last Admin: 07/26/18 09:36 Dose: 0.5 mg Clonidine HCl (Catapres-Tts2 0.2 Mg/24 Hr) 1 patch TD Q7D@1000 [facility] Last Admin: 07/25/18 09:55 Dose: 1 patch Guaifenesin/Codeine Phosphate (Robitussin W/Codeine) 5 ml PO Q4H PRN PRN Reason: Cough and congestion Hydralazine HCl (Apresoline) 10 mg IVP Q6 PRN PRN Reason: hypertension Hydroxyzine HCl (Atarax) 25 mg PO BID PRN PRN Reason: Itching / Pruritus Last Admin: 07/24/18 11:23 Dose: 25 mg Dextrose/Sodium Chloride (Dextrose 5%/0.9% Ns 1000 Ml) 1,000 mls @ 75 mls/hr IV .[id number] [facility] Last Admin: 07/25/18 00:12 Dose: 75 mls/hr Ipratropium [place] (Atrovent) 0.5 mg IH TIDRESP [facility] Last Admin: 07/26/18 13:11 Dose: 0.5 mg Levalbuterol HCl (Xopenex) 0.63 mg IH TIDRESP [facility] Last Admin: 07/26/18 13:07 Dose: 0.63 mg Loperamide HCl (Imodium) 2 mg PO DAILY PRN PRN Reason: Diarrhea Last Admin: 07/24/18 11:24 Dose: 2 mg Loratadine (Claritin) 10 mg PO DAILY [facility] Methylprednisolone (Solu-Medrol) 40 mg IVP DAILY [facility] Last Admin: 07/26/18 09:36 Dose: 40 mg Mirtazapine (Remeron) 15 mg PO HS [facility] Last Admin: 07/25/18 23:03 Dose: 15 mg Montelukast Sodium (Singulair) 10 mg PO HS [facility] Last Admin: 07/25/18 23:03 Dose: 10 mg Nicotine (Nicoderm Cq) 1 patch TD DAILY [facility] Last Admin: 07/26/18 11:14 Dose: Not Given Ondansetron HCl (Zofran Odt) 4 mg PO Q6H PRN PRN Reason: Nausea/Vomiting Last Admin: 07/24/18 13:16 Dose: 4 mg Oxycodone HCl (Oxycodone Immediate Release Tab) 5 mg PO Q6H PRN PRN Reason: Pain, severe (8-10) Last Admin: 07/26/18 14:34 Dose: 5 mg Pantoprazole Sodium (Protonix Ec Tab) 40 mg PO ACB [facility] Last Admin: 07/26/18 08:00 Dose: 40 mg Sodium Chloride ([place] Nasal [place]) 0 ml NS TID [facility] Last Admin: 07/26/18 13:08 Dose: Not Given - Labs Labs: 07/26/18 07:45 07/26/18 07:45 PT 19.1 SECONDS (9.4-12.5) H 07/21/18 06:30 INR 1.69 07/21/18 06:30 APTT 28.2 Seconds (26.9-38.3) 07/19/18 10:35 - Constitutional Appears: No Acute Distress, Older Than Stated Age, Chronically Ill - Head Exam Head Exam: ATRAUMATIC, NORMOCEPHALIC - Eye Exam Eye Exam: EOMI, PERRL - ENT Exam ENT Exam: Mucous Membranes Moist - Neck Exam Neck Exam: Full ROM - Respiratory Exam Respiratory Exam: Decreased Breath Sounds, NORMAL BREATHING PATTERN - Cardiovascular Exam Cardiovascular Exam: REGULAR RHYTHM, +S1, +S2 - GI/Abdominal Exam GI & Abdominal Exam: Soft, Normal Bowel Sounds. absent: Guarding, Rigid, Tenderness - Extremities Exam Extremities Exam: Normal Capillary Refill. 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 Patient on admission found to be leukopenic and thrombocytopenic. Patient has required blood products throughout admission. Patient thrombocytopenia continues to be depressed. Plan: - Platelets appear to be holding at this time, continue to monitor blood counts - Continue to monitor Hgb, plan to transfuse 1 unit pRBC if Hgb <8 - GI and Gen Surgery following - Continued work with physical therapy - Replete and replenish lytes per primary team - Further recs per Dr. Raines
[2018-07-26] MEDS: guaiFENesin-Codeine 100-10mg/5ml Syrup (5 ml) UD PO PRN (16:25)
--- NOTE | 2018-07-26 21:54 | CP.PCM.PN ---
<Bairon Leonard - Last Filed: 07/26/18 21:20> Subjective - Date & Time of Evaluation Date of Evaluation: 07/26/18 Time of Evaluation: 19:35 - Subjective Subjective: House Physician Resident Note ELIAN Freeman DO PGY-3 Called by nursing to evaluate patient with complaint of chest pain. Recent charting and labs reviewed. Notable for similar complaint of chest pain last night, EKG and trop not suggestive of ACS. Seen by Manager Of Revenue (Dr. Langley), who suspected more likely musculoskelatal pain rather than cardiac disorder. On exam, patient has clear breathing sounds, regular rate and rhythm. Pain is left-lateral chest wall, worse with deep breaths, reproducible on/worse with palpation. Exam otherwise benign. Vitals are wnl, patient is hemodynamically stable. Denies shortness of breath, nausea, emesis, palpitations, or fevers/chills. Repeat Trop and EKG ordered. EKG appears unchanged from prior. Trop decreased from 0.12 this AM to 0.05. Most likely musculoskeletal pain, no acute intervention indicated at this time. Discussed and reviewed with House Physician, Dr. Gonzalez. Objective - Vital Signs/Intake and Output Vital Signs (last 24 hours): Temp Pulse Resp BP Pulse Ox 98.4 F 92 H 18 152/80 H 92 L 07/26/18 17:02 07/26/18 17:02 07/26/18 17:02 07/26/18 17:02 07/26/18 17:02 Intake and Output: 07/26/18 07/27/18 18:59 06:59 Intake Total 240 1220 Output Total 200 1000 Balance 40 220 - Medications Medications: Current Medications Acetaminophen (Tylenol 325mg Tab) 650 mg PO Q6H PRN PRN Reason: Fever >100.4 F Last Admin: 07/17/18 11:32 Dose: 650 mg Acetylcysteine (Acetylcysteine 20%) 4 ml IH BIDRESP [facility] Last Admin: 07/26/18 19:32 Dose: Not Given Amlodipine Besylate (Norvasc) 10 mg PO DAILY [facility] Last Admin: 07/26/18 09:36 Dose: 10 mg Atenolol (Tenormin) 25 mg PO BID [facility] Last Admin: 07/26/18 17:28 Dose: 25 mg Budesonide (Pulmicort Respules) 0.5 mg IH [id number] [facility] Last Admin: 07/26/18 19:32 Dose: 0.5 mg Clonazepam (Klonopin) 0.5 mg PO BID [facility]; Protocol Last Admin: 07/26/18 17:28 Dose: 0.5 mg Clonidine HCl (Catapres-Tts2 0.2 Mg/24 Hr) 1 patch TD Q7D@1000 [facility] Last Admin: 07/25/18 09:55 Dose: 1 patch Guaifenesin/Codeine Phosphate (Robitussin W/Codeine) 5 ml PO Q4H PRN PRN Reason: Cough and congestion Last Admin: 07/26/18 16:25 Dose: 5 ml Hydralazine HCl (Apresoline) 10 mg IVP Q6 PRN PRN Reason: hypertension Hydroxyzine HCl (Atarax) 25 mg PO BID PRN PRN Reason: Itching / Pruritus Last Admin: 07/24/18 11:23 Dose: 25 mg Dextrose/Sodium Chloride (Dextrose 5%/0.9% Ns 1000 Ml) 1,000 mls @ 75 mls/hr IV .[id number] [facility] Last Admin: 07/25/18 00:12 Dose: 75 mls/hr Ipratropium Leon[place] (Atrovent) 0.5 mg IH TIDRESP [facility] Last Admin: 07/26/18 19:31 Dose: 0.5 mg Levalbuterol HCl (Xopenex) 0.63 mg IH TIDRESP [facility] Last Admin: 07/26/18 19:32 Dose: 0.63 mg Loperamide HCl (Imodium) 2 mg PO DAILY PRN PRN Reason: Diarrhea Last Admin: 07/24/18 11:24 Dose: 2 mg Loratadine (Claritin) 10 mg PO DAILY [facility] Methylprednisolone (Solu-Medrol) 40 mg IVP DAILY [facility] Last Admin: 07/26/18 09:36 Dose: 40 mg Mirtazapine (Remeron) 15 mg PO HS [facility] Last Admin: 07/25/18 23:03 Dose: 15 mg Montelukast Sodium (Singulair) 10 mg PO HS [facility] Last Admin: 07/25/18 23:03 Dose: 10 mg Nicotine (Nicoderm Cq) 1 patch TD DAILY [facility] Last Admin: 07/26/18 11:14 Dose: Not Given Ondansetron HCl (Zofran Odt) 4 mg PO Q6H PRN PRN Reason: Nausea/Vomiting Last Admin: 07/24/18 13:16 Dose: 4 mg Oxycodone HCl (Oxycodone Immediate Release Tab) 5 mg PO Q6H PRN PRN Reason: Pain, severe (8-10) Last Admin: 07/26/18 14:34 Dose: 5 mg Pantoprazole Sodium (Protonix Ec Tab) 40 mg PO ACB [facility] Last Admin: 07/26/18 08:00 Dose: 40 mg Sodium Chloride ([place] Nasal [place]) 0 ml NS TID [facility] Last Admin: 07/26/18 17:48 Dose: Not Given - Labs Labs: 07/26/18 07:45 07/26/18 07:45 PT 19.1 SECONDS (9.4-12.5) H 07/21/18 06:30 INR 1.69 07/21/18 06:30 APTT 28.2 Seconds (26.9-38.3) 07/19/18 10:35 <Apolinar Gonzalez - Last Filed: 07/27/18 21:58> Objective - Vital Signs/Intake and Output Vital Signs (last 24 hours): Temp Pulse Resp BP Pulse Ox 98.9 F 70 20 179/84 H 97 07/27/18 07:58 07/27/18 09:25 07/27/18 07:58 07/27/18 09:25 07/27/18 07:58 Intake and Output: 07/27/18 07/28/18 18:59 06:59 Intake Total 420 Output Total 1500 Balance -1080 - Labs Labs: 07/26/18 07:45 07/27/18 06:00 PT 19.1 SECONDS (9.4-12.5) H 07/21/18 06:30 INR 1.69 07/21/18 06:30 APTT 28.2 Seconds (26.9-38.3) 07/19/18 10:35 Attending/Attestation - Attestation I have personally seen and examined this patient.: Yes I have fully participated in the care of the patient.: Yes I have reviewed all pertinent clinical information, including history, physical exam and plan: Yes
--- NOTE | 2018-07-27 00:01 | PN ---
DATE: 07/26/2018 SUBJECTIVE: A 53-year-old female. The patient seems doing better. She is weak but she is improving. Blood pressure is still running 170 systolic. No chest pain. No other complaints. PHYSICAL EXAMINATION: VITAL SIGNS: Temperature 98.4, heart rate 92, blood pressure 176/82, respirations 18, saturation 98% on room air. HEENT: Head and neck examination is normal. No JVD. No thyromegaly. CHEST: Clear bilateral. CARDIAC: First sound and second sound normal. No murmur, rub, or gallop. ABDOMEN: Soft and nontender. EXTREMITIES: No edema. NEUROLOGIC: Normal. LABORATORY DATA: She had CBC which shows white count of 4.9, hemoglobin 10, hematocrit 29.6, platelets 33,000. Chemistry noted for sodium 140, potassium 3.1, chloride 104, bicarbonate 34, BUN 15, and creatinine 0.5. IMPRESSION AND PLAN: 1. Community-acquired pneumonia, stable now. She is off antibiotics. 2. Pancytopenia, improving. Her blood count is better. 3. Generalized weakness. The patient will need physical therapy and that will help. 4. History of myelodysplastic syndrome. We will follow up with Oncologist. 5. Hypertension. We will increase the Norvasc to 10 mg once a day. Continue current management. Follow up clinically. August Lara MD
[2018-07-27 07:17] LABS: ALBUMIN 2.4 g/dL (3.0-4.8); ALT/SGPT 76 U/L (7-56); AST/SGOT 27 U/L (14-36); BLOOD UREA NITROGEN 13 mg/dL (7-21); CALCIUM 7.8 mg/dL (8.4-10.5); GFR NON-AFRICAN AMERICAN > 60
[2018-07-27] MEDS: Ipratropium 0.02% Inhal Soln (0.5 mg/2.5 ml) UD IH SCH ×2 (07:52→13:22)
[2018-07-27] MEDS: Budesonide 0.5 mg/2 ml Inhal Susp UD IH SCH (07:52)
[2018-07-27] MEDS: Levalbuterol 0.63 MG/3 ML Inhal Soln UD IH SCH ×2 (07:53→13:22)
[2018-07-27 07:58] VITALS: BP 179/84; PULSE 70; RESP 20; TEMP 98.9; O2SAT 97
[2018-07-27] MEDS ORDERED: Potassium Chloride 20 mEq ER Tab PO SCH (08:00)
[2018-07-27] MEDS: Acetylcysteine 20% Inhal Soln (4ml) IH SCH (08:27)
[2018-07-27] MEDS: Pantoprazole 40 mg EC Tab PO SCH (08:27)
[2018-07-27] MEDS: oxyCODONE 5 mg Immediate Release Tab PO PRN (08:27)
[2018-07-27] MEDS: MethylPREDNISolone 40 mg Vial IVP SCH (09:25)
[2018-07-27] MEDS: Dextrose 5%/0.9% NS 1,000 ML IV SCH (09:42)
[2018-07-27] MEDS: guaiFENesin-Codeine 100-10mg/5ml Syrup (5 ml) UD PO PRN (10:34)
[2018-07-27] MEDS ORDERED: MethylPREDNISolone 40 mg Vial IVP SCH (10:54)
--- NOTE | 2018-07-27 11:12 | CP.PCM.PN ---
Subjective - Date & Time of Evaluation Date of Evaluation: 07/27/18 Time of Evaluation: 11:11 - Subjective Subjective: Leonidas Pardo PGY2 - Heme/Onc Progress Note for Dr. Lopez Patient seen and evaluated this AM. NO acute events reported overnight. Patient reports chest discomfort associated with increased and chronic cough. She has reporducible pain on palpation. She indicates she feels slightly better with breathing treatment from AM. Objective - Vital Signs/Intake and Output Vital Signs (last 24 hours): Temp Pulse Resp BP Pulse Ox 98.9 F 70 20 179/84 H 97 07/27/18 07:58 07/27/18 09:25 07/27/18 07:58 07/27/18 09:25 07/27/18 07:58 Intake and Output: 07/27/18 07/27/18 06:59 18:59 Intake Total 1220 420 Output Total 1000 1500 Balance 220 -1080 - Medications Medications: Current Medications Acetaminophen (Tylenol 325mg Tab) 650 mg PO Q6H PRN PRN Reason: Fever >100.4 F Last Admin: 07/17/18 11:32 Dose: 650 mg Acetylcysteine (Acetylcysteine 20%) 4 ml IH BIDRESP [facility] Last Admin: 07/27/18 08:27 Dose: Not Given Amlodipine Besylate (Norvasc) 10 mg PO DAILY [facility] Last Admin: 07/27/18 09:24 Dose: 10 mg Atenolol (Tenormin) 25 mg PO BID [facility] Last Admin: 07/27/18 09:25 Dose: 25 mg Budesonide (Pulmicort Respules) 0.5 mg IH [id number] [facility] Last Admin: 07/27/18 07:52 Dose: 0.5 mg Clonazepam (Klonopin) 0.5 mg PO BID [facility]; Protocol Last Admin: 07/27/18 09:24 Dose: 0.5 mg Clonidine HCl (Catapres-Tts2 0.2 Mg/24 Hr) 1 patch TD Q7D@1000 [facility] Last Admin: 07/25/18 09:55 Dose: 1 patch Guaifenesin/Codeine Phosphate (Robitussin W/Codeine) 5 ml PO Q4H PRN PRN Reason: Cough and congestion Last Admin: 07/27/18 10:34 Dose: 5 ml Hydralazine HCl (Apresoline) 10 mg IVP Q6 PRN PRN Reason: hypertension Hydroxyzine HCl (Atarax) 25 mg PO BID PRN PRN Reason: Itching / Pruritus Last Admin: 07/24/18 11:23 Dose: 25 mg Dextrose/Sodium Chloride (Dextrose 5%/0.9% Ns 1000 Ml) 1,000 mls @ 75 mls/hr IV .[id number] [facility] Last Admin: 07/27/18 09:42 Dose: 75 mls/hr Ipratropium [place] (Atrovent) 0.5 mg IH TIDRESP [facility] Last Admin: 07/27/18 07:52 Dose: 0.5 mg Levalbuterol HCl (Xopenex) 0.63 mg IH TIDRESP [facility] Last Admin: 07/27/18 07:53 Dose: 0.63 mg Loperamide HCl (Imodium) 2 mg PO DAILY PRN PRN Reason: Diarrhea Last Admin: 07/24/18 11:24 Dose: 2 mg Loratadine (Claritin) 10 mg PO DAILY [facility] Last Admin: 07/27/18 09:24 Dose: 10 mg Methylprednisolone (Solu-Medrol) 30 mg IVP DAILY [facility] Mirtazapine (Remeron) 15 mg PO HS [facility] Last Admin: 07/26/18 21:19 Dose: 15 mg Montelukast Sodium (Singulair) 10 mg PO HS [facility] Last Admin: 07/26/18 21:19 Dose: 10 mg Nicotine (Nicoderm Cq) 1 patch TD DAILY [facility] Last Admin: 07/27/18 09:49 Dose: Not Given Ondansetron HCl (Zofran Odt) 4 mg PO Q6H PRN PRN Reason: Nausea/Vomiting Last Admin: 07/24/18 13:16 Dose: 4 mg Oxycodone HCl (Oxycodone Immediate Release Tab) 5 mg PO Q6H PRN PRN Reason: Pain, severe (8-10) Last Admin: 07/27/18 08:27 Dose: 5 mg Pantoprazole Sodium (Protonix Ec Tab) 40 mg PO ACB [facility] Last Admin: 07/27/18 08:27 Dose: 40 mg Potassium Chloride (K-Dur 20 Meq Er Tab) 20 meq PO BRK [facility] Last Admin: 07/27/18 08:26 Dose: 20 meq Sodium Chloride ([place] Nasal [place]) 0 ml NS TID [facility] Last Admin: 07/27/18 09:25 Dose: Not Given - Labs Labs: 07/26/18 07:45 07/27/18 06:00 PT 19.1 SECONDS (9.4-12.5) H 07/21/18 06:30 INR 1.69 07/21/18 06:30 APTT 28.2 Seconds (26.9-38.3) 07/19/18 10:35 - Constitutional Appears: Older Than Stated Age - Head Exam Head Exam: ATRAUMATIC, NORMOCEPHALIC - Eye Exam Eye Exam: EOMI, PERRL - ENT Exam ENT Exam: Mucous Membranes Moist - Neck Exam Neck Exam: Full ROM - Respiratory Exam Respiratory Exam: Decreased Breath Sounds, NORMAL BREATHING PATTERN - Cardiovascular Exam Cardiovascular Exam: REGULAR RHYTHM, +S1, +S2 - GI/Abdominal Exam GI & Abdominal Exam: Soft, Normal Bowel Sounds. absent: Tenderness - Extremities Exam Extremities Exam: absent: Pedal Edema - Neurological Exam Neurological Exam: Alert, Awake, Oriented x3 - Psychiatric Exam Psychiatric exam: Normal Affect, Normal Mood - Skin Skin Exam: Dry, Warm Assessment and Plan - Assessment and Plan (Free Text) Assessment: 53-year old female with accelerated MDS s/p chemotherapy, immunosuppression, lung cancer s/p lobectomy, R breast mastectomy, COPD, endocarditis who presented to [facility] for productive cough, fevers, chills x 1 month. Patient on admission found to be leukopenic and thrombocytopenic. Patient has required blood products throughout admission. Patient thrombocytopenia continues to be depressed. Plan: - Platelets appear to be holding at this time, continue to monitor blood counts, platelet count 34 - Continue to monitor Hgb, plan to transfuse 1 unit pRBC if Hgb <8 - GI and Gen Surgery following - Continued work with physical therapy - Replete and replenish lytes per primary team - Further recs per Dr. Raines
--- NOTE | 2018-07-27 12:14 | PN ---
DATE: 07/27/2018 PULMONARY PROGRESS NOTE REFERRING PHYSICIAN: August Lara MD SUBJECTIVE: The patient is seen lying in bed. No acute distress. No overnight events reported. The patient reports feeling okay today. Still has some coughing, shortness of breath with exertion. No headache, rhinitis, chest pain, abdominal pain, nausea, vomiting, diarrhea or leg pain reported. OBJECTIVE GENERAL: No acute distress. VITAL SIGNS: Blood pressure 179/84, pulse 70, temperature 98.9 and oxygen saturation 97% on nasal cannula. HEENT: Moist mucous membranes. Crowded airway. NECK: Supple. No JVD. LUNGS: Scattered rhonchi bilaterally. CARDIOVASCULAR: S1 and S2. ABDOMEN: Soft and nontender. No distention. No organomegaly. EXTREMITIES: Edema to bilateral feet. NEUROLOGIC: Awake, alert and verbal. Following commands. MEDICATIONS: Reviewed. Tylenol 650 mg every 6 hours p.r.n. fever greater than 100.4, Mucomyst 4 mL inhalation twice a day, Norvasc 10 mg daily, atenolol 25 mg twice a day, Pulmicort 0.5 mg inhalation every 12 hours, Klonopin 0.5 mg twice a day, Clonidine 0.2 mg patch every 7 days, dextrose 5%, sodium chloride 0.9%, nasal saline at 1000 mL at 75 mL per hour, Robitussin with codeine 5 mL p.o. every 4 hours p.r.n., hydralazine 10 mg IV push every 6 hours p.r.n., Atarax 25 mg p.o. twice a day p.r.n., Atrovent 0.5 mg inhalation 3 times a day, Xopenex 0.63 mg inhalation 3 times a day, Imodium 2 mg p.o. daily, Claritin 10 mg daily, Solu-Medrol 40 mg IV push daily, Remeron 15 mg p.o. at bedtime, Singulair 10 mg at bedtime, nicotine patch transdermal daily, Zofran 4 mg every 6 hours p.r.n., oxycodone 5 mg every 6 hours p.r.n. and Protonix 40 mg in the morning and potassium chloride 20 mEq at breakfast and [place] nasal spray 3 times a day. LABORATORY DATA: Reviewed. Manual platelet count 34. Sodium 140, potassium 3.8, chloride 102, carbon dioxide 33, anion gap 9, BUN 13, creatinine 0.5, GFR is greater than 60, random glucose 83, calcium 7.8, total bilirubin 0.7, AST 27, ALT 76, alkaline phosphatase 81, total protein 4.9, albumin 2.4, globulin 2.4 and albumin-globulin ratio 1.0. Procalcitonin level 0.12. Troponin 0.05. Extremity ultrasound report pending. EKG report pending. Chest x-ray which shows interval increase bilateral pleural effusions now moderate the left and mild, but increased at the right, persistent mid left, pulmonary infiltrate with bibasilar atelectasis or infiltrates not excluded. No pulmonary vascular congestion. IMPRESSION AND PLAN: Leukemia, chronic lung disease, neutropenia which has resolved, thrombocytopenia and sepsis. No longer antibiotic therapy. Continue inhaled bronchodilators. Current chest physiotherapy, incentive spirometry, head of bed elevated at 45 degrees and aspiration precautions. Physical therapy. Out of bed to chair. Procalcitonin level negative. Hypokalemia has resolved. We will decrease Solu-Medrol to 30 mg daily. Continue antihistamines, leukotriene inhibitors and inhaled bronchodilators. This patient was seen and examined with Dr. Maurer. Discussed assessment and plan as described above. This patient was seen and examined by Henry Marquez, nurse practitioner. Discussed assessment and plan as described above. Thank you for this consult and we will follow with you. Henry Marquez APN Solange Maurer MD
--- NOTE | 2018-07-27 14:45 | US ---
HISTORY: Leg pain and swelling. Evaluate for DVT PHYSICIAN(S): Killian Zhou MD. TECHNIQUE: Duplex sonography and color-flow Doppler with graded compression were used to evaluate the deep venous systems of both lower extremities. FINDINGS: The visualized deep venous systems of both lower extremities are sonographically normal and compressible. Normal wave forms and augmentation are seen. There is no sonographic evidence for deep venous thrombosis in the visualized segments of both lower extremities. IMPRESSION: No sonographic evidence for deep venous thrombosis in the visualized segments of both lower extremities.
--- NOTE | 2018-07-27 15:16 | CARD ---
APPROVED REPORT Date of service: 07/26/2018 EKG Measurement Heart [id number] <Conclusion> Normal sinus rhythm Possible Left atrial enlargement Rightward axis Nonspecific T wave abnormality Prolonged QT Abnormal ECG
--- NOTE | 2018-07-27 21:08 | PN ---
DATE: 07/27/2018 REASON FOR CONSULTATION: Cardiac evaluation, chest pain and musculoskeletal, neutropenic sepsis, history of recently diagnosed leukemia. SUBJECTIVE: The patient denies any chest pain, shortness of breath, or any palpitation. PHYSICAL EXAMINATION: GENERAL: Not in apparent distress. VITAL SIGNS: Temperature afebrile, heart rate 70, blood pressure 152/80. HEENT: PERRLA. Extraocular muscles intact. NECK: Supple. No carotid bruits or thyromegaly. CHEST: Clear to auscultation. HEART: S1, S2 regular. ABDOMEN: Soft. EXTREMITIES: Clubbing, cyanosis negative. LABORATORY DATA: Blood workup as follows: WBC of 4.9, hemoglobin 10, hematocrit 29.6, platelet count 33 as of yesterday. Today's chemistry sodium 140, potassium 3, chloride 102, CO2 of 33, anion gap 9, BUN 13, creatinine 0.5. IMPRESSION: A 53-year-old female with past medical history significant for right breast cancer, lumpectomy status post in 2003, history of lung carcinoma, status post chemotherapy, myelodysplastic syndrome, leukemia, pancytopenia, atypical chest pain, hypertension uncontrolled, protein calorie malnutrition at present during admission recurred. RECOMMENDATION: Continue aggressive antihypertensive medications. Hem/Onc followup for pancytopenia. CV status is stable. Atypical chest pain. We will follow with you. Thank you Dr. Lara for providing us the opportunity in taking care of the patient Codi Pope. Solange Langley MD
--- NOTE | 2018-07-28 01:23 | PN ---
DATE: 07/27/2018 SUBJECTIVE: The patient is in bed in no acute distress, nontoxic. PHYSICAL EXAMINATION: VITAL SIGNS: Temperature 98, blood pressure 179/80, respiratory rate 20, heart rate 70. HEENT: Examination of HEENT is unremarkable. NECK: Supple. LUNGS: Decreased breath sounds. HEART: Normal S1, S2. ABDOMEN: Soft. LABORATORY DATA: Laboratory examination reveals a white count of 4.9. Chemistries reveal a BUN of 13, creatinine of 0.5, procalcitonin 0.12. Urinalysis is noted. Serology is noted. Microbiology is reviewed. ASSESSMENT AND PLAN: This is a 53-year-old female who was seen early this morning in room 365, bed 1. Awake and alert who was initially admitted with septic shock, healthcare-associated pneumonia, neutropenic febrile patient with acute kidney injury; currently off antibiotics, for possible discharge today. Terrance Juan MD
--- NOTE | 2018-07-30 03:45 | DS ---
HISTORY OF PRESENT ILLNESS: Codi Pope is a 53-year-old female, who was admitted with pneumonia, neutropenic sepsis, she was given colony-stimulating factors, IV Merrem. Seen by Pulmonary consult, Hematology consult and Infectious Disease consult. The patient was treated with IV fluid. She was in the unit, then transferred to telemetry. She got transfusion of platelet and she was doing well, refused to go physical therapy rehab. She wants to go home with some physical therapy. We will do as the patient wishes, risk explained to the patient especially fall with low platelet. She has no chest pain, no shortness of breath, afebrile, hemodynamically stable. Blood pressure medications has been increased. DISCHARGE PHYSICAL EXAMINATION: VITAL SIGNS: Blood pressure was 179/84, heart rate is 70, temperature 98.9, respirations 20, saturating 97% on 2 liters. HEAD AND NECK: Normal. No JVD. No thyromegaly. CHEST: Clear bilaterally. Just mild cough. CARDIAC: First sound and second sound normal. No murmur, rub or gallop. ABDOMEN: Soft and nontender. EXTREMITIES: No edema. NEUROLOGIC: Normal. General weak. LABORATORY DATA: White count 4.9, hemoglobin 10, hematocrit 29, and platelet 34,000. Chemistry; sodium 140, potassium 3.8, chloride 102, bicarb 33, BUN 13, creatinine 0.5 and calcium 7.8. Her ALT is 76 and AST is normal. Total bilirubin is normal. Alk-phos is normal. The patient also had troponin, which was negative. DISCHARGE DIAGNOSES: 1. Neutropenic sepsis. 2. Pneumonia. 3. Chronic obstructive pulmonary disease exacerbation. 4. Pancytopenia. 5. Thrombocytopenia, status post transfusion. 6. Generalized weakness. 7. Hypertension. DISCHARGE MEDICATIONS: She got nebulizer treatment, albuterol, oxycodone 5/325 mg every 6 hours, vitamin B, Protonix, amlodipine 10 mg, atenolol 25 mg b.i.d., clonazepam 0.5 mg b.i.d. She also has clonidine patch once a day, Singulair 10 mg, Zyrtec 5 mg, Remeron 15 mg, pantoprazole, potassium 20 mEq p.o. daily, and Norvasc 10 mg. DISCHARGE PLAN: The patient advised to go to rehabilitation. She declined it and we will discharge the patient home to be followed with physical therapy at home. August Lara MD
== END 2018-07-27 17:38 | disposition home or self-care (01) | DRG 584 ==
LOC: ED 09:09 → ERH 13:01 → 3RNO 15:04 → CCU 07-17 06:16 → 2RSO 07-19 21:57 → 3RNO 07-24 16:19
PROVIDERS: ADMIT Internal Medicine; ATTEND Internal Medicine
PROC: 06HM33Z Insertion of Infusion Device into Right Femoral Vein, Percutaneous Approach (ICD-10-PCS; 2018-07-17)
PROC: B54BZZA Ultrasonography of Right Lower Extremity Veins, Guidance (ICD-10-PCS; 2018-07-17)
PROC: 30233N1 Transfusion of Nonautologous Red Blood Cells into Peripheral Vein, Percutaneous Approach (ICD-10-PCS; 2018-07-17)
PROC: 30233K1 Transfusion of Nonautologous Frozen Plasma into Peripheral Vein, Percutaneous Approach (ICD-10-PCS; 2018-07-17)
PROC: 02H633Z Insertion of Infusion Device into Right Atrium, Percutaneous Approach (ICD-10-PCS; principal; 2018-07-18)
PROC: 3E033XZ Introduction of Vasopressor into Peripheral Vein, Percutaneous Approach (ICD-10-PCS; 2018-07-18)
PROC: 30233R1 Transfusion of Nonautologous Platelets into Peripheral Vein, Percutaneous Approach (ICD-10-PCS; 2018-07-20)
DX: A41.9 Sepsis, unspecified organism (principal); C95.00 Acute leukemia of unspecified cell type not having achieved remission; N17.9 Acute kidney failure, unspecified; J18.1 Lobar pneumonia, unspecified organism; R65.21 Severe sepsis with septic shock; E43 Unspecified severe protein-calorie malnutrition; D61.810 Antineoplastic chemotherapy induced pancytopenia; J44.0 Chronic obstructive pulmonary disease with (acute) lower respiratory infection; D57.1 Sickle-cell disease without crisis; J98.11 Atelectasis; E87.6 Hypokalemia; I42.9 Cardiomyopathy, unspecified; J44.1 Chronic obstructive pulmonary disease with (acute) exacerbation; I08.3 Combined rheumatic disorders of mitral, aortic and tricuspid valves; Z94.2 Lung transplant status; R50.81 Fever presenting with conditions classified elsewhere; T45.1X5A Adverse effect of antineoplastic and immunosuppressive drugs, initial encounter; I10 Essential (primary) hypertension; F17.210 Nicotine dependence, cigarettes, uncomplicated; D70.3 Neutropenia due to infection; F32.9 Major depressive disorder, single episode, unspecified; F41.9 Anxiety disorder, unspecified; Z68.1 Body mass index [BMI] 19.9 or less, adult; Z85.118 Personal history of other malignant neoplasm of bronchus and lung; Z85.3 Personal history of malignant neoplasm of breast; Z80.8 Family history of malignant neoplasm of other organs or systems

== ENCOUNTER 2018-07-29 10:15 | Inpatient (IN) | payer MEDICAID ==
[2018-07-29 10:29] VITALS: BMI 18.0
[2018-07-29] MEDS ORDERED: Oxymetazoline 0.05% Nasal Spray (30 ml) NS STA (10:29)
--- NOTE | 2018-07-29 10:32 | ED PDOC ---
Arrival/HPI - History of Present Illness Narrative History of Present Illness (Text): 53 y/o female with PMH of leukemia, neutropenia, thrombocytopenia presents to the ED with family c/o epistaxis x 1 hour. Pt was sitting at home when her nose began to bleed suddenly. Associated dizziness. Of note, patient was recently discharged from hospital on 07/27 after a 14 day stay for pneumonia and neutropenia. Denies palpitations, SOB, chest pain, headache, vision changes, nausea, vomiting, abdominal pain, or any other associated complaints. <Bonnie Barcenas - Last Filed: 07/29/18 12:26> <Osman Mera - Last Filed: 07/29/18 14:00> - General Time Seen by Provider: 07/29/18 10:16 Past Medical History - Past History Past History: No Previous - Infectious Disease Hx of Infectious Diseases: None - Tetanus Immunization Tetanus Immunization: Unknown - Cardiac Hx Pacemaker: No - Pulmonary Hx Chronic Obstructive Pulmonary Disease (COPD): Yes - Neurological Hx Neurological Disorder: No - HEENT Hx HEENT Disorder: No - Renal Other/Comment: "englarged kidney" - Endocrine/Metabolic Hx Endocrine Disorders: No - Hematological/Oncological Hx Cancer: Yes (breast, lung) - Integumentary Hx Dermatological Disorder: No - Musculoskeletal/Rheumatological Hx Musculoskeletal Disorders: No - Gastrointestinal Hx Gastrointestinal Disorders: Yes (CONSTIPATION,WEIGHT LOSS 14 LBS .) - Genitourinary/Gynecological Hx Genitourinary Disorders: No - Psychiatric Hx Depression: Yes Hx Substance Use: No - Surgical History Hx Mastectomy: No - Anesthesia Hx Anesthesia: Yes Hx Anesthesia Reactions: No Hx Malignant Hyperthermia: No <Bonnie Barcenas - Last Filed: 07/29/18 12:26> Family/Social History Smoking Status: Former Smoker Hx Alcohol Use: No Hx Substance Use: No Hx Substance Use Treatment: No <Bonnie Barcenas - Last Filed: 07/29/18 12:26> Family/Social History: Unknown Family HX <Osman Mera - Last Filed: 07/29/18 14:00> Allergies/Home Meds <Bonnie Barcenas - Last Filed: 07/29/18 12:26> <Osman Mera - Last Filed: 07/29/18 14:00> Allergies/Adverse Reactions: Allergies No Known Allergies Allergy (Verified 07/29/18 10:28) Home Medications: Home Meds Medication Instructions Recorded Confirmed Prochlorperazine [Compazine] 1 cap PO Q6H 06/12/18 07/16/18 Vitamin B Complex [Super B-50 1 cap PO DAILY 06/12/18 07/16/18 Complex] oxyCODONE/Acetaminophen [Percocet 1 tab PO Q6H 06/12/18 07/16/18 5/325 mg Tab] Review of Systems - Physician Review All systems were reviewed & negative as marked: Yes - Review of Systems Constitutional: Fatigue Eyes: Normal. absent: Vision Changes, Photophobia ENT: Normal Respiratory: Normal Cardiovascular: Normal Gastrointestinal: Normal Genitourinary Female: Normal. absent: Dysuria, Frequency Musculoskeletal: Normal. absent: Arthralgias, Back Pain, Neck Pain Skin: Normal. absent: Rash Neurological: Dizziness. absent: Headache Endocrine: Normal Hemo/Lymphatic: Normal Psychiatric: Normal <Bonnie Barcenas - Last Filed: 07/29/18 12:26> Physical Exam Vital Signs Reviewed: Yes Temperature: Afebrile Blood Pressure: Normal Pulse: Regular Respiratory Rate: Normal Appearance: Positive for: Ill-Appearing, Uncomfortable Pain Distress: None Mental Status: Positive for: Alert and Oriented X 3 - Systems Exam Head: Present: Atraumatic, Normocephalic Pupils: Present: PERRL Extroacular Muscles: Present: EOMI Conjunctiva: Present: Normal Mouth: Present: Moist Mucous Membranes Pharnyx: Present: Other (blood in posterior pharynx). No: ERYTHEMA, EXUDATE, TONSILS ENLARGED Nose (External): Present: Atraumatic Nose (Internal): Present: Epistaxis (bilateral nares) Neck: Present: Normal Range of Motion. No: Meningeal Signs, MIDLINE TENDERNESS Respiratory/Chest: Present: Decreased Breath Sounds (bilaterally). No: Respiratory Distress, Accessory Muscle Use Cardiovascular: Present: Regular Rate and Rhythm, Normal S1, S2, Peripheal Pulses Present. No: Murmurs Abdomen: Present: Normal Bowel Sounds. No: Tenderness, Distention, Peritoneal Signs Back: Present: Normal Inspection. No: CVA Tenderness, Paraspinal Tenderness Upper Extremity: Present: Normal Inspection (port left upper arm), Normal ROM, NORMAL PULSES, Neurovascularly Intact, Capillary Refill < 2s. No: Cyanosis, Edema, Temperature Abnormalties Lower Extremity: Present: Normal Inspection, NORMAL PULSES, Normal ROM, Neurovascularly Intact, Capillary Refill < 2 s. No: Edema, Temperature Abnormalties Neurological: Present: GCS=15, CN II-XII Intact, Speech Normal, Motor Func Grossly Intact, Normal Sensory Function, Gait Normal Skin: Present: Warm, Dry, Normal Color. No: Rashes Lymphatic: No: Cervical Adenopathy Psychiatric: Present: Alert, Oriented x 3, Normal Insight, Normal Concentration, Normal Affect, Normal Mood <Bonnie Barcenas - Last Filed: 07/29/18 12:26> Vital Signs Temp Pulse Resp BP Pulse Ox 07/29/18 12:24 110 H 16 104/79 92 L 07/29/18 11:02 99.4 F 112 H 18 141/88 95 07/29/18 10:31 99.4 F 112 H 20 141/88 95 <Osman Mera - Last Filed: 07/29/18 14:00> Medical Decision Making ED Course and Treatment: 07/29/18 10:36 Initial Plan: * CBC, CMP * PT, PTT * Troponin * EKG * Afrin On initial exam, patient is ill-appearing, uncomfortable, but non toxic. Vital signs stable. 11:10 Critical lab value of plt 13 11:[address] Lara, who accepted patient on to his service with diagnosis of epistaxis, thrombocytopenia to the remote telemetry floor. Asks for heme/onc consult, ENT consult. Pt with stable vital signs at this time. 11:23 Bleeding controlled with Afrin. 11:45 Spoke with heme/onc, Dr. England who recommends platelet transfusion, pt to be pre-medicated with hydrocortisone, benadryl, and tylenol 12:15 Alerted by nursing that bleeding has returned, with clots from nose and mouth. 12:20 7.5cm rapid rhino device placed in left nare by ED attending Dr. Mera. Baloon inflated with 5cc air. Pt tolerated procedure well without complication. 12:38 Dr. Lara saw patient at bedside. - Lab Interpretations Lab Results: 07/29/18 10:35 07/29/18 10:35 Lab Results 07/29/18 10:35: Sodium 139, Potassium 3.0 L, Chloride 94 L, Carbon Dioxide 38 H, Anion Gap 10, BUN 14, Creatinine 0.7, Est GFR ( Amer) > 60, Est GFR (Non- Af Amer) > 60, Random Glucose 138 H, Calcium 8.6, Magnesium 1.5 L, Total Bilirubin 1.1, AST 26, ALT 59 H, Alkaline Phosphatase 99, Troponin I 0.04, Total Protein 6.2, Albumin 3.2, Globulin 3.1, Albumin/Globulin Ratio 1.0 L 07/29/18 10:35: PT 15.0 H, INR 1.33, APTT 27.1 07/29/18 10:35: WBC 6.3 D, RBC 3.58, Hgb 10.8 L, Hct 33.0 L, MCV 92.2, MCH 30.2, MCHC 32.7, RDW 15.0 H, Plt Count 13 L*, Neut % (Auto) 28.5 L, Lymph % (Auto) 37.1 H, [place] % (Auto) 33.9 H, Eos % (Auto) 0.2 L, Baso % (Auto) 0.3, Lymph # (Auto) 2.3, [place] # (Auto) 2.1 H, Eos # (Auto) 0.0, Baso # (Auto) 0.02, Absolute Neuts (auto) 1.78, Neutrophils % (Manual) 40 L, Band Neutrophils % 2, Lymphocytes % (Manual) 45 H, Atypical Lymphs % 4 H, Monocytes % (Manual) 9 H, Toxic Granulation Slight, Platelet Evaluation Low, Polychromasia Slight, Hypochromasia 1+, Poikilocytosis (manual Slight, Anisocytosis (manual) 1+, Target Cells Slight, Tear Drop Cells Slight, Ovalocytes Slight I have reviewed the lab results: Yes - EKG Interpretation EKG Interpretation (Text): 07/29/18 12:30 Rate 111; Sinus tachycardia; Normal Intervals; No STEMI, nonspecific ST/T wave changes Interpreted by ED Physician: Yes Type: 12 lead EKG Comparison: Com.w/previous EKG (07/26) <Bonnie Barcenas - Last Filed: 07/29/18 12:26> ED Course and Treatment: 07/29/18 13:57 Bleeding has resolved. - Lab Interpretations Lab Results: PT 15.0 SECONDS (9.4-12.5) H 07/29/18 10:35 INR 1.33 07/29/18 10:35 APTT 27.1 Seconds (26.9-38.3) 07/29/18 10:35 Troponin I 0.04 ng/mL 07/29/18 10:35 Total Bilirubin 1.1 mg/dL (0.2-1.3) 07/29/18 10:35 AST 26 U/L (14-36) 07/29/18 10:35 ALT 59 U/L (7-56) H 07/29/18 10:35 Alkaline Phosphatase 99 U/L (38-126) 07/29/18 10:35 Total Protein 6.2 g/dL (5.8-8.3) 07/29/18 10:35 Albumin 3.2 g/dL (3.0-4.8) 07/29/18 10:35 Globulin 3.1 gm/dL 07/29/18 10:35 Albumin/Globulin Ratio 1.0 (1.1-1.8) L 07/29/18 10:35 - Medication Orders Current Medication Orders: Sodium Chloride (Sodium Chloride 0.9%) 1,000 mls @ 100 mls/hr IV .Q10H KAYLEIGH Last Admin: 07/29/18 11:49 Dose: 100 mls/hr eMAR Start Stop Document 07/29/18 11:49 MA (Rec: 07/29/18 11:49 [facility] [id number] Intravenous Solution Start Date 07/29/18 Start Time 11:49 Discontinued Medications Acetaminophen (Tylenol 325mg Tab) 650 mg PO STAT STA Stop: 07/29/18 11:51 Diphenhydramine HCl (Benadryl) 25 mg PO ONCE ONE Stop: 07/29/18 11:51 Hydrocortisone Sodium Succinate (Solu-Cortef) 100 mg IVP STAT STA Stop: 07/29/18 11:51 Ondansetron HCl (Zofran Inj) 4 mg IVP STAT STA Stop: 07/29/18 11:56 Last Admin: 07/29/18 11:59 Dose: 4 mg IVP Administration Document 07/29/18 11:59 SERGO (Rec: 07/29/18 11:59 [facility] Charges for Administration # of IVP Administrations 1 Oxymetazoline HCl (Afrin 0.05%) 2 ml NS STAT STA Stop: 07/29/18 10:30 Last Admin: 07/29/18 11:03 Dose: 1 applic Comments: Administered by A Narinder MCARTHUR Potassium Chloride (Potassium Chloride Oral Soln) 40 meq PO STAT STA Stop: 07/29/18 11:10 Last Admin: 07/29/18 12:41 Dose: 40 meq <Osman Mera - Last Filed: 07/29/18 14:00> - PA / METALS ANALYST / Resident Statement /DO has examined the patient and agrees with the treatment plan. <Osman Mera - Last Filed: 07/29/18 14:00> Disposition/Present on Arrival - Present on Arrival History of DVT/PE: No History of Uncontrolled Diabetes: No Urinary Catheter: No History Surgical Site Infection Following: None <Bonnie Barcenas - Last Filed: 07/29/18 12:26> - Present on Arrival Any Indicators Present on Arrival: No History of DVT/PE: No History of Uncontrolled Diabetes: No Urinary Catheter: No History of Decub. Ulcer: No - Disposition Have Diagnosis and Disposition been Completed?: Yes Disposition Time: 13:59 Patient Plan: Admission <Osman Mera - Last Filed: 07/29/18 14:00> - Disposition Diagnosis: AML (acute myeloblastic leukemia), Thrombocytopenia, Epistaxis Disposition: HOSPITALIZED Patient Problems: Current Active Problems Problem Status Onset AML (acute myeloblastic leukemia) Acute Epistaxis Acute Thrombocytopenia Acute Condition: GUARDED
[2018-07-29 10:54] LABS: BASO # 0.02 K/mm3 (0.0-2.0); BASO % 0.3 % (0.0-3.0); EOS % 0.2 % (1.5-5.0); HEMOGLOBIN 10.8 g/dL (12.0-16.0); LYMPH # 2.3 (1.2-3.4); LYMPH % 37.1 % (22.0-35.0); MEAN CELL VOLUME 92.2 fl (80.0-105.0); MEAN CORPUSCULAR HEMOGLOBIN 30.2 pg (25.0-35.0); MEAN CORPUSCULAR HGB CONC 32.7 g/dl (31.0-37.0); MONO # 2.1 (0.1-0.6); MONO % 33.9 % (1.0-6.0); RBC 3.58 10^6/uL (3.5-6.1); WHITE BLOOD COUNT 6.3 10^3/uL (4.5-11.0)
[2018-07-29 10:59] LABS: INR 1.33; PARTIAL THROMBOPLASTIN TIME 27.1 Seconds (26.9-38.3)
[2018-07-29 11:04] LABS: ALBUMIN 3.2 g/dL (3.0-4.8); ALT/SGPT 59 U/L (7-56); AST/SGOT 26 U/L (14-36); BLOOD UREA NITROGEN 14 mg/dL (7-21); CALCIUM 8.6 mg/dL (8.4-10.5); GFR NON-AFRICAN AMERICAN > 60
[2018-07-29 11:08] LABS: PLATELET COUNT 13 10^3/uL (120.0-450.0)
[2018-07-29 11:09] LABS: TROPONIN I 0.04 ng/mL
[2018-07-29] MEDS ORDERED: Potassium Chloride 40 mEq/30 ml LIQ UD PO STA (11:09)
[2018-07-29 11:30] LABS: ATYPICAL LYMPHOCYTE 4 % (0.0-0.0); BAND 2 % (0-2); LYMPHOCYTE 45 % (22.0-35.0); MONOCYTE 9 % (1.0-6.0); NEUTROPHIL 40 % (50.0-70.0)
[2018-07-29] MEDS ORDERED: Sodium Chloride 0.9% 1,000 ML IV SCH (11:30)
[2018-07-29 11:31] LABS: ANISOCYTOSIS 1+; HYPOCHROMIA 1+; PLATELET ESTIMATE LOW (NORMAL); POIKILOCYTOSIS SLIGHT; POLYCHROMASIA SLIGHT
[2018-07-29 11:32] LABS: OVALOCYTES SLIGHT; TEAR DROP CELLS SLIGHT
[2018-07-29 11:36] LABS: TARGET CELLS SLIGHT; TOXIC GRANULATION SLIGHT
[2018-07-29] MEDS ORDERED: Budesonide 0.5 mg/2 ml Inhal Susp UD IH SCH (13:00)
[2018-07-29] MEDS ORDERED: Albuterol 0.083% Inhal Sol (2.5 mg/3 mL) UD IH PRN (13:14)
[2018-07-29] MEDS: Multivitamin With Minerals Tab PO SCH (13:43)
[2018-07-29] MEDS: Oxycodone/Acetaminophen 5/325 mg Tab PO SCH ×2 (13:43→22:00)
[2018-07-29] MEDS: Pantoprazole 40 mg EC Tab PO SCH (13:43)
--- NOTE | 2018-07-29 13:44 | RAD ---
Date of service: 07/29/2018 HISTORY: Dizziness. COMPARISON: 07/26/2018. FINDINGS: LUNGS: Improved aeration of the lungs. Residual lower lobe infiltrates remain. PLEURA: Interval decrease in bilateral pleural effusions. CARDIOVASCULAR: No atherosclerotic calcification present PICC line in satisfactory position unchanged compared to the prior study. OSSEOUS STRUCTURES: No significant abnormalities. VISUALIZED UPPER ABDOMEN: Normal. OTHER FINDINGS: None. IMPRESSION: Interval improvement in lower lobe infiltrates and decrease in bilateral pleural effusions.
[2018-07-29] MEDS: Sodium Chloride 0.9% 1,000 ML IV SCH (14:00)
[2018-07-29] MEDS ORDERED: ceFAZolin 1 gm in NS 1 GM/100 ML BAG IVPB SCH (15:15)
--- NOTE | 2018-07-29 15:21 | CP.PCM.CON ---
History of Present Illness - History of Present Illness History of Present Illness: This is a 53 yoa b female with a one day hx of epuistaxis and pancytopenia. Pt was packed in nthe ER with some oozing persistant Review of Systems - Constitutional Constitutional: As Per HPI - EENT Eyes: As Per HPI Ears: As Per HPI Nose/Mouth/Throat: As Per HPI Past Patient History - Infectious Disease Hx of Infectious Diseases: None - Tetanus Immunizations Tetanus Immunization: Unknown - Past Social History Smoking Status: Former Smoker - CARDIAC Hx Pacemaker: No - PULMONARY Hx Chronic Obstructive Pulmonary Disease (COPD): Yes - NEUROLOGICAL Hx Neurological Disorder: No - HEENT Hx HEENT Problems: No - RENAL Other/Comment: "englarged kidney" - ENDOCRINE/METABOLIC Hx Endocrine Disorders: No - HEMATOLOGICAL/ONCOLOGICAL Hx Blood Disorders: Yes Hx Anemia: Yes Hx Cancer: Yes (breast, lung) Other/Comment: SLE - INTEGUMENTARY Hx Dermatological Problems: No - MUSCULOSKELETAL/RHEUMATOLOGICAL Hx Musculoskeletal Disorders: No - GASTROINTESTINAL Hx Gastrointestinal Disorders: Yes (CONSTIPATION,WEIGHT LOSS 14 LBS .) - GENITOURINARY/GYNECOLOGICAL Hx Genitourinary Disorders: No - PSYCHIATRIC Hx Depression: Yes Hx Substance Use: No - SURGICAL HISTORY Hx Mastectomy: No - ANESTHESIA Hx Anesthesia: Yes Hx Anesthesia Reactions: No Hx Malignant Hyperthermia: No Meds Allergies/Adverse Reactions: Allergies Allergy/AdvReac Type Severity Reaction Status Date / Time No Known Allergies Allergy Verified 07/29/18 10:28 - Medications Medications: Current Medications Acetaminophen (Tylenol 325mg Tab) 650 mg PO Q6H PRN PRN Reason: Fever >100.4 F Albuterol Sulfate (Albuterol 0.083% Inhal Raysa (2.5 Mg/3 Ml) Ud) 2.5 mg IH [id number] PRN PRN Reason: Cough and congestion Amlodipine Besylate (Norvasc) 10 mg PO DAILY KAYLEIGH Arformoterol Tartrate (Brovana) 15 mcg IH [id number] KAYLEIGH Atenolol (Tenormin) 25 mg PO BID KAYLEIGH Budesonide (Pulmicort Respules) 0.5 mg IH [id number] KAYLEIGH Clonazepam (Klonopin) 0.5 mg PO BID KAYLEIGH; Protocol Sodium Chloride (Sodium Chloride 0.9%) 1,000 mls @ 70 mls/hr IV .[id number] KAYLEIGH Cefazolin Sodium (Ancef 1gm In Ns) 1 gm in 100 mls @ 100 mls/hr IVPB Q8 KAYLEIGH; Protocol Loratadine (Claritin) 10 mg PO DAILY [facility] Mirtazapine (Remeron) 15 mg PO HS [facility] Montelukast Sodium (Singulair) 10 mg PO DAILY [facility] Last Admin: 07/29/18 13:43 Dose: 10 mg Multivitamins/Minerals (Therapeutic-M Tab) 1 tab PO DAILY [facility] Last Admin: 07/29/18 13:43 Dose: 1 tab Nicotine (Nicoderm Cq) 1 patch TD DAILY [facility] Oxycodone/Acetaminophen (Percocet 5/325 Mg Tab) 1 tab PO Q6H KAYLEIGH Stop: 08/01/18 13:01 Last Admin: 07/29/18 13:43 Dose: 1 tab Pantoprazole Sodium (Protonix Ec Tab) 40 mg PO DAILY [facility] Last Admin: 07/29/18 13:43 Dose: 40 mg Potassium Chloride (K-Dur 20 Meq Er Tab) 20 meq PO DAILY [facility] Physical Exam - Constitutional Appears: Non-toxic, No Acute Distress - Head Exam Head Exam: ATRAUMATIC - Additional Findings Additional findings: left epistat/rhinoeocket in place repositioned without further epistaxis Results - Vital Signs Recent Vital Signs: Last Vital Signs Temp 99.4 F 07/29/18 11:02 Pulse 101 H 07/29/18 13:19 Resp 20 07/29/18 13:19 BP 116/78 07/29/18 13:19 Pulse Ox 98 07/29/18 13:19 - Labs Result Diagrams: 07/29/18 10:35 07/29/18 10:35 Labs: Laboratory Results - last 24 hr 07/29/18 07/29/18 07/29/18 10:30 10:35 10:35 WBC 6.3 D RBC 3.58 Hgb 10.8 L Hct 33.0 L MCV 92.2 MCH 30.2 MCHC 32.7 RDW 15.0 H Plt Count 13 L* Neut % (Auto) 28.5 L Lymph % (Auto) 37.1 H [place] % (Auto) 33.9 H Eos % (Auto) 0.2 L Baso % (Auto) 0.3 Lymph # (Auto) 2.3 [place] # (Auto) 2.1 H Eos # (Auto) 0.0 Baso # (Auto) 0.02 Absolute Neuts (auto) 1.78 Neutrophils % (Manual) 40 L Band Neutrophils % 2 Lymphocytes % (Manual) 45 H Atypical Lymphs % 4 H Monocytes % (Manual) 9 H Toxic Granulation Slight Platelet Evaluation Low Polychromasia Slight Hypochromasia 1+ Poikilocytosis (manual Slight Anisocytosis (manual) 1+ Target Cells Slight Tear Drop Cells Slight Ovalocytes Slight PT 15.0 H INR 1.33 APTT 27.1 Sodium Potassium Chloride Carbon Dioxide Anion Gap BUN Creatinine Est GFR ( Amer) Est GFR (Non-Af Amer) Random Glucose Calcium Magnesium Total Bilirubin AST ALT Alkaline Phosphatase Troponin I Total Protein Albumin Globulin Albumin/Globulin Ratio Blood Type B POSITIVE Antibody Screen Negative BBK History Checked Patient has bt 07/29/18 10:35 WBC RBC Hgb Hct MCV MCH MCHC RDW Plt Count Neut % (Auto) Lymph % (Auto) [place] % (Auto) Eos % (Auto) Baso % (Auto) Lymph # (Auto) [place] # (Auto) Eos # (Auto) Baso # (Auto) Absolute Neuts (auto) Neutrophils % (Manual) Band Neutrophils % Lymphocytes % (Manual) Atypical Lymphs % Monocytes % (Manual) Toxic Granulation Platelet Evaluation Polychromasia Hypochromasia Poikilocytosis (manual Anisocytosis (manual) Target Cells Tear Drop Cells Ovalocytes PT INR APTT Sodium 139 Potassium 3.0 L Chloride 94 L Carbon Dioxide 38 H Anion Gap 10 BUN 14 Creatinine 0.7 Est GFR ( Amer) > 60 Est GFR (Non-Af Amer) > 60 Random Glucose 138 H Calcium 8.6 Magnesium 1.5 L Total Bilirubin 1.1 AST 26 ALT 59 H Alkaline Phosphatase 99 Troponin I 0.04 Total Protein 6.2 Albumin 3.2 Globulin 3.1 Albumin/Globulin Ratio 1.0 L Blood Type Antibody Screen BBK History Checked Assessment & Plan - Assessment and Plan (Free Text) Assessment: Epistaxis related to thrombocytopenia Plan: Maintain packing for 48 hoiurs, transfuse platelets, IV ancer
--- NOTE | 2018-07-29 15:24 | CARD ---
APPROVED REPORT Date of service: 07/29/2018 EKG Measurement Heart [id number] <Conclusion> Sinus tachycardia Left atrial enlargement Nonspecific T wave abnormality Abnormal ECG
[2018-07-29] MEDS ORDERED: Vancomycin 2 GM in Sodium Chloride 0.9% 500 ML IVPB ONE (17:16)
[2018-07-29] MEDS: Arformoterol 15 mcg/2 ml Inh Sol IH SCH (19:51)
[2018-07-29] MEDS: Budesonide 0.5 mg/2 ml Inhal Susp UD IH SCH (19:51)
[2018-07-29] MEDS ORDERED: Arformoterol 15 mcg/2 ml Inh Sol IH SCH ×2 (20:00)
[2018-07-29] MEDS: Meropenem IV 1 gm in NS 1 GM/50 ML BAG IVPB SCH (22:02)
--- NOTE | 2018-07-29 22:45 | HP ---
DATE OF EXAM: 07/29/2018 CHIEF COMPLAINT: The patient is admitted today with epistaxis. HISTORY OF PRESENT ILLNESS: The patient was just recently discharged 2 days go after being treated for neutropenic sepsis pneumonia. She was given Merrem for 7 days. She did well, got transfusion platelets before discharge with 33,000. Came in today with epistaxis left nostril that brought her to the emergency room for evaluation where she was treated with a balloon to prevent recurrence of epistaxis. The patient was admitted for evaluation. PAST MEDICAL HISTORY: As I mentioned, she has multiple history. In the past she has evidence of leukemia, myelodysplastic syndrome. She has history of breast cancer, lung cancer treated in the past. She has history of right mastectomy, pneumothorax, lobectomy in 2006, tonsillectomy, and adenoidectomy. SOCIAL HISTORY: She has a daughter. She is a former smoker, half a pack a day for 30 years. She does not drink alcohol except socially. Denies any drug. FAMILY HISTORY: Mother has pancreatic and gastric cancer. Father has [place]. ALLERGIES: NO KNOWN ALLERGY. REVIEW OF SYSTEMS: As in the present illness. PHYSICAL EXAMINATION VITAL SIGNS: Today, temperature 98.4, heart rate 112, blood pressure 141/88, respirations 18, and saturation 95% on room air. HEENT: Normal. No JVD. No thyromegaly. CHEST: Clear bilateral. Few rhonchi. CARDIAC: First sound and second sound normal. No murmur, rub, or gallop. ABDOMEN: Soft and nontender. EXTREMITIES: No edema. NEUROLOGIC: Normal. LABORATORY DATA: White count 6.3, hemoglobin 10.8, hematocrit 33, and platelets 13,000. Chemistry; sodium 139, potassium 3, chloride 94, bicarb 38, BUN 14, creatinine 0.7, blood sugar 138, and magnesium 1.5. AST is normal, total bilirubin is normal, ALT is slightly elevated at 59, alkaline phosphatase 99. IMPRESSION AND PLAN: 1. Epistaxis, left nostril has been packed. Ear, nose and throat consult has been ordered and Hematology consult for platelet transfusions is being ordered for evaluation and treatment. 2. Hypertension, low platelets, history of pneumonia, low grade fever. We will get an Infectious Disease to look into the patient, pulmonary consult Dr. Maurer to see the patient. We will continue all the rest of her medications. 3. The patient also has a history of smoking, we will put her on Nicoderm. Continue Klonopin. We will replace potassium and magnesium and we will followup clinically. Continue Protonix, Brovana, Singulair, and IV fluid. August Lara MD
--- NOTE | 2018-07-29 23:44 | CON ---
DATE: 07/29/2018 This is [facility] consult to telemetry floor. For Dr. Lopez. CHIEF COMPLAINT: Nosebleed and epistaxis. HISTORY OF PRESENT ILLNESS: The patient is a 53-year-old female seen for severe thrombocytopenia with epistaxis, nosebleed occurring suddenly while the patient was resting at home and admitted by the emergency room. 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 She also suffers from COPD, emphysema, and was in septic shock on admission most recently. She also has a history of lung cancer, breast cancer, and sickle cell disease. Note that the patient is now seen resting with the epistaxis subsided with the patient reported nose picking prior to the event upon questioning. PAST MEDICAL HISTORY: Significant for accelerated myelodysplastic syndrome/leukemia, COPD, pancytopenia, thrombocytopenia, history of sickle cell disease, history of lung cancer in 2006, history of breast cancer in 2004, history of neutropenic sepsis three weeks earlier with severe anemia, thrombocytopenia, status post pneumothorax in 2006, tonsillectomy, adenoidectomy, and smoker. FAMILY AND SOCIAL HISTORY: The patient smokes half a pack a day for years, now 5 cigarettes per day with alcohol including beer in shots. The patient has 1 daughter, 3 sons alive and well and 2 sisters and 1 brother alive and well. Father of heart attack, unemployed, former food . REVIEW OF SYSTEMS: A 12-point review of systems is done with negative to questions except items mentioned in the history of present illness along with significant weight loss as the patient today weighs 105 pounds down from 132 approximately 6 months prior. ALLERGIES: NO KNOWN ALLERGIES. MEDICATIONS: At present include; albuterol, Brovana, Claritin, potassium, Klonopin, Norvasc, Percocet, Protonix, Pulmicort, Remeron, Singulair, Tenormin, multivitamin, and Tylenol. PHYSICAL EXAMINATION: GENERAL: She appears cachectic. VITAL SIGNS: Temperature 99.4, pulse 101, respirations 20, blood pressure 116/78, and pulse ox 98%. HEENT: Oxygen on 1 right nostril with questionable packing on the left. Tongue is moist. NECK: Supple. HEART: Tachy rate, regular rhythm. LUNGS: Minimal decreased breath sounds at the bases. ABDOMEN: Soft. EXTREMITIES: No edema. SKIN: Warm and dry. NEUROLOGIC: Awake and alert. DIAGNOSTIC DATA: The patient's other test included chest x-ray, which showed a interval improvement in lower lobe infiltrates and decrease in bilateral pleural effusions. EKG was done and it has not been read yet. LABORATORY DATA: White blood cell count 6.3, hemoglobin 10.8, hematocrit 33, and platelet count of 13,000. INR 1.3 and PTT 27.1. Metabolic panel showed potassium of 3, chloride of 98, carbon dioxide of 38, magnesium 1.5, and ALT of 59. ASSESSMENT: Assessment for this patient is that of epistaxis, severe thrombocytopenia, accelerated myelodysplastic syndrome/leukemia, chronic obstructive pulmonary disease, emphysema, pleural effusions, history of breast cancer, history of sickle cell disease, history of lung cancer, hypokalemia, anemia of chronic disease, and smoker. PLAN: Plan for this patient will be to continue present medical regimen. We will transfuse 1 unit of single donor apheresis platelets. We have to premedicate with Tylenol, Benadryl, and Solu-Cortef with continuation of her present medical regimen above. We will add nicotine patch. We will consult with Dr. Maurer, Pulmonology for her pulmonary compromise with continuation of monitoring of her labs and correction as indicated. This is a complex patient with a comprehensive medically necessary and appropriate visit carried out in excess of 65 minutes with the patient's questions answered to her satisfaction. Clint Mcduffie MD
--- NOTE | 2018-07-30 01:29 | CON ---
DATE: 07/29/2018 The patient is in room 271, bed 2. CHIEF COMPLAINT: Epistaxis x1 day duration. HISTORY OF PRESENT ILLNESS: A 53-year-old female with history of myelodysplasia, dysplastic syndrome, history of lung cancer. The patient has had chemotherapy, history of chronic obstructive lung disease, sickle cell disease, history of endocarditis and had acute kidney injury, recently was hospitalized with septic shock, neutropenia and was treated with antibiotics. The patient had thrombocytopenia, although now she presents with epistaxis. No fevers, but she is having chills. No chest pain. There is mild shortness of breath. No cough. No abdominal pain, diarrhea, or constipation. No dysuria. REVIEW OF SYSTEMS: A 12-point review systems is performed. PAST MEDICAL HISTORY: Significant for myelodysplastic syndrome, lung cancer, lupus, COPD, sickle cell, endocarditis, acute kidney injury, recent hospitalization with neutropenia. The patient has a new left arm PICC line. PAST SURGICAL HISTORY: Significant for right mastectomy and a lobectomy. ALLERGIES: THE PATIENT HAS NO KNOWN ALLERGIES. MEDICATIONS: Noted. The patient had acute kidney injury on his last admission. PHYSICAL EXAMINATION: GENERAL: The patient is in bed, in no acute distress. VITAL SIGNS: Temperature of 99.4, heart rate of 112, respiratory rate of 20, blood pressure is 104/70. HEENT: Unremarkable. NECK: Supple. LUNGS: Have decreased breath sounds. HEART: Normal S1, S2. ABDOMEN: Soft, nontender. LABORATORY EXAMINATION: Reveals a white count of 6.3, hemoglobin of 10, platelets of 13. The patient has 28% neutrophils, absolute neutrophil count is 1.78. Coagulation is noted with INR of 1.33. Chemistries reveal the creatinine 0.7. Urinalysis is noted. Serology is noted. Microbiology from a recent admission reveals the patient's cultures were all negative. MRSA screen is negative. Sputum, normal gregorio. Chest x-ray is noted, stable infiltrate. Dr. Bradford Berrios's consultation is reviewed. ASSESSMENT AND PLAN: A 53-year-old female with epistaxis with thrombocytopenia, tachycardia, must rule out bacteremia from the PICC line in the left arm versus pneumonia. We will order 1 dose of vancomycin 2 g x1 dose since the patient had acute kidney injury on his last admission and also meropenem. Discontinue the Ancef. We would check on blood cultures, procalcitonin, urine cultures. We will make further recommendation upon availability of initial results. Terrance Juan MD
[2018-07-30] MEDS: Oxycodone/Acetaminophen 5/325 mg Tab PO SCH ×4 (01:33→20:57)
[2018-07-30] MEDS: Sodium Chloride 0.9% 1,000 ML IV SCH ×2 (04:00→18:55)
[2018-07-30 05:53] LABS: URINE BILIRUBIN NEGATIVE (NEGATIVE); URINE BLOOD NEGATIVE (NEGATIVE); URINE GLUCOSE (UA) NEGATIVE (NEGATIVE); URINE LEUKOCYTE ESTERASE NEGATIVE Leu/uL (NEGATIVE); URINE PROTEIN NEGATIVE mg/dL (<30 mg/dL); URINE UROBILINOGEN 0.2 E.U./dL (<1 E.U./dL)
[2018-07-30 05:55] LABS: URINE APPEARANCE CLEAR (CLEAR); URINE COLOR YELLOW (YELLOW)
[2018-07-30] MEDS: Meropenem IV 1 gm in NS 1 GM/50 ML BAG IVPB SCH ×3 (06:17→23:18)
[2018-07-30] MEDS: Budesonide 0.5 mg/2 ml Inhal Susp UD IH SCH ×2 (07:31→19:33)
[2018-07-30] MEDS: Arformoterol 15 mcg/2 ml Inh Sol IH SCH ×2 (07:31→19:33)
[2018-07-30 07:34] LABS: BASO # 0.03 K/mm3 (0.0-2.0); BASO % 0.5 % (0.0-3.0); EOS % 0.2 % (1.5-5.0); LYMPH # 2.3 (1.2-3.4); LYMPH % 40.8 % (22.0-35.0); MEAN CELL VOLUME 91.7 fl (80.0-105.0); MEAN CORPUSCULAR HEMOGLOBIN 30.1 pg (25.0-35.0); MEAN CORPUSCULAR HGB CONC 32.8 g/dl (31.0-37.0); MEAN PLATELET VOLUME 9.1 fl (7.0-11.0); MONO # 0.8 (0.1-0.6); MONO % 14.3 % (1.0-6.0); RBC 2.16 10^6/uL (3.5-6.1); RED CELL DISTRIBUTION WIDTH 15.1 % (11.5-14.5); WHITE BLOOD COUNT 5.7 10^3/uL (4.5-11.0)
[2018-07-30 07:39] LABS: HEMOGLOBIN 6.5 g/dL (12.0-16.0)
[2018-07-30 08:13] LABS: ALT/SGPT 40 U/L (7-56); AST/SGOT 19 U/L (14-36)
[2018-07-30 08:19] LABS: ALBUMIN 2.3 g/dL (3.0-4.8)
[2018-07-30 08:20] LABS: ALB/GLOB RATIO 0.9 (1.1-1.8); BLOOD UREA NITROGEN 33 mg/dL (7-21); CALCIUM 7.5 mg/dL (8.4-10.5); GFR NON-AFRICAN AMERICAN > 60
[2018-07-30] MEDS: Pantoprazole 40 mg EC Tab PO SCH (09:14)
[2018-07-30] MEDS: Multivitamin With Minerals Tab PO SCH (09:14)
[2018-07-30] MEDS: Potassium Chloride 20 mEq ER Tab PO SCH (09:14)
--- NOTE | 2018-07-30 09:31 | CP.PCM.PN ---
Subjective - Date & Time of Evaluation Date of Evaluation: 07/30/18 Time of Evaluation: 08:00 - Subjective Subjective: Leonidas Pardo PGY2 - Heme/Onc Progress Note for Dr. Lopez Patient seen and examined this AM. No acute events reported overnight. Patient denies further bleeding from nares or other sites. Denies chest pain, shortness of breath, abdominal pain, vomiting, fever, chills, headache, neurological deficits. Patient does endorse some nausea. Objective - Vital Signs/Intake and Output Vital Signs (last 24 hours): Temp Pulse Resp BP Pulse Ox 98.1 F 85 20 117/69 97 07/30/18 06:00 07/30/18 06:00 07/30/18 06:00 07/30/18 06:00 07/30/18 06:00 Intake and Output: 07/30/18 07/30/18 06:59 18:59 Intake Total 1840 Output Total 2200 Balance -360 - Medications Medications: Current Medications Acetaminophen (Tylenol 325mg Tab) 650 mg PO Q6H PRN PRN Reason: Fever >100.4 F Albuterol Sulfate (Albuterol 0.083% Inhal Raysa (2.5 Mg/3 Ml) Ud) 2.5 mg IH [id number] PRN PRN Reason: Cough and congestion Amlodipine Besylate (Norvasc) 10 mg PO DAILY [facility] Arformoterol Tartrate (Brovana) 15 mcg IH [id number] [facility] Last Admin: 07/30/18 07:31 Dose: 15 mcg Atenolol (Tenormin) 25 mg PO BID [facility] Last Admin: 07/29/18 18:27 Dose: 25 mg Budesonide (Pulmicort Respules) 0.5 mg IH [id number] [facility] Last Admin: 07/30/18 07:31 Dose: 0.5 mg Clonazepam (Klonopin) 0.5 mg PO BID [facility]; Protocol Last Admin: 07/30/18 09:13 Dose: 0.5 mg Sodium Chloride (Sodium Chloride 0.9%) 1,000 mls @ 70 mls/hr IV .[id number] [facility] Last Admin: 07/30/18 04:00 Dose: 70 mls/hr Meropenem (Merrem Iv 1 Gm Premix) 1 gm in 50 mls @ 100 mls/hr IVPB Q8 [facility]; Protocol Stop: 08/07/18 22:01 Last Admin: 07/30/18 06:17 Dose: 100 mls/hr Loratadine (Claritin) 10 mg PO DAILY [facility] Last Admin: 07/30/18 09:14 Dose: 10 mg Mirtazapine (Remeron) 15 mg PO HS [facility] Last Admin: 07/29/18 22:00 Dose: 15 mg Montelukast Sodium (Singulair) 10 mg PO DAILY [facility] Last Admin: 07/30/18 09:14 Dose: 10 mg Multivitamins/Minerals (Therapeutic-M Tab) 1 tab PO DAILY [facility] Last Admin: 07/30/18 09:14 Dose: 1 tab Nicotine (Nicoderm Cq) 1 patch TD DAILY [facility] Last Admin: 07/30/18 09:14 Dose: 1 patch Oxycodone/Acetaminophen (Percocet 5/325 Mg Tab) 1 tab PO Q6H [facility] Stop: 08/01/18 13:01 Last Admin: 07/30/18 06:16 Dose: 1 tab Pantoprazole Sodium (Protonix Ec Tab) 40 mg PO DAILY [facility] Last Admin: 07/30/18 09:14 Dose: 40 mg Potassium Chloride (K-Dur 20 Meq Er Tab) 20 meq PO DAILY [facility] Last Admin: 07/30/18 09:14 Dose: 20 meq - Labs Labs: 07/30/18 07:15 07/30/18 07:15 PT 15.0 SECONDS (9.4-12.5) H 07/29/18 10:35 INR 1.33 07/29/18 10:35 APTT 27.1 Seconds (26.9-38.3) 07/29/18 10:35 - Constitutional Appears: No Acute Distress - Head Exam Head Exam: ATRAUMATIC, NORMOCEPHALIC - Eye Exam Eye Exam: EOMI, PERRL - ENT Exam Additional comments: left nare with inflated nasal rocket for episode of epistaxis, no blood old or new appreciated - Neck Exam Neck Exam: Full ROM - Respiratory Exam Respiratory Exam: Decreased Breath Sounds, NORMAL BREATHING PATTERN - Cardiovascular Exam Cardiovascular Exam: REGULAR RHYTHM, +S1, +S2 - GI/Abdominal Exam GI & Abdominal Exam: Soft, Normal Bowel Sounds. absent: Tenderness - Extremities Exam Extremities Exam: Full ROM. absent: Calf Tenderness - Neurological Exam Neurological Exam: Alert, Awake, Oriented x3 Neuro motor strength exam: Left Upper Extremity: 5, Right Upper Extremity: 5, Left Lower Extremity: 5, Right Lower Extremity: 5 - Psychiatric Exam Psychiatric exam: Normal Affect, Normal Mood - Skin Skin Exam: Dry, Warm Assessment and Plan - Assessment and Plan (Free Text) Assessment: 53-year old female with accelerated MDS s/p chemotherapy, immunosuppression, lung cancer s/p lobectomy, R breast mastectomy, COPD, endocarditis who presented to [facility] for epistaxis for one hour. Patient is s/p rapid rhino placement into left nares. Plan: - Hemoglobin 6.5 today, plan to transfuse 2 unit pRBC, pretreat with IV solucortef, benadryl and PO acetaminophen - Platelet count is 63 and manual count is 87, continue to monitor - Maintain rapid rhino for 48 hours as per ENT recs - Further recommendations as per Dr. Lopez
[2018-07-30 09:57] LABS: MEAN CORPUSCULAR HEMOGLOBIN 29.6 pg (25.0-35.0); MEAN CORPUSCULAR HGB CONC 32.2 g/dl (31.0-37.0); MEAN PLATELET VOLUME 9.4 fl (7.0-11.0); RBC 2.26 10^6/uL (3.5-6.1); RED CELL DISTRIBUTION WIDTH 15.2 % (11.5-14.5)
[2018-07-30 10:00] LABS: HEMOGLOBIN 6.7 g/dL (12.0-16.0)
[2018-07-30 10:12] LABS: ALB/GLOB RATIO 0.9 (1.1-1.8); ALBUMIN 2.5 g/dL (3.0-4.8); ALT/SGPT 35 U/L (7-56); AST/SGOT 21 U/L (14-36); BLOOD UREA NITROGEN 29 mg/dL (7-21); CALCIUM 7.8 mg/dL (8.4-10.5); GFR NON-AFRICAN AMERICAN > 60
[2018-07-30] MEDS ORDERED: DiphenhydrAMINE 50 mg/ml Inj IVP ONE (10:17)
[2018-07-30] MEDS: Magnesium Oxide 400 mg Tab UD PO SCH ×2 (12:57→18:56)
[2018-07-30] MEDS ORDERED: Potassium Chloride 20 mEq ER Tab PO SCH (13:00)
--- NOTE | 2018-07-30 13:20 | CP.PCM.PN ---
Subjective - Date & Time of Evaluation Date of Evaluation: 07/30/18 Time of Evaluation: 13:17 - Subjective Subjective: pt seen and examined no active bleeding today packing still in p;ines pt is comfortable Objective - Vital Signs/Intake and Output Vital Signs (last 24 hours): Temp Pulse Resp BP Pulse Ox 97.8 F 82 17 130/64 97 07/30/18 12:12 07/30/18 12:12 07/30/18 12:12 07/30/18 12:12 07/30/18 06:00 Intake and Output: 07/30/18 07/30/18 06:59 18:59 Intake Total 1840 0 Output Total 2200 Balance -360 0 - Medications Medications: Current Medications Acetaminophen (Tylenol 325mg Tab) 650 mg PO Q6H PRN PRN Reason: Fever >100.4 F Albuterol Sulfate (Albuterol 0.083% Inhal Raysa (2.5 Mg/3 Ml) Ud) 2.5 mg IH [id number] PRN PRN Reason: Cough and congestion Amlodipine Besylate (Norvasc) 10 mg PO DAILY [facility] Last Admin: 07/30/18 09:35 Dose: Not Given Arformoterol Tartrate (Brovana) 15 mcg IH [id number] [facility] Last Admin: 07/30/18 07:31 Dose: 15 mcg Atenolol (Tenormin) 25 mg PO BID [facility] Last Admin: 07/30/18 09:35 Dose: Not Given Budesonide (Pulmicort Respules) 0.5 mg IH [id number] [facility] Last Admin: 07/30/18 07:31 Dose: 0.5 mg Clonazepam (Klonopin) 0.5 mg PO BID [facility]; Protocol Last Admin: 07/30/18 09:13 Dose: 0.5 mg Sodium Chloride (Sodium Chloride 0.9%) 1,000 mls @ 70 mls/hr IV .[id number] [facility] Last Admin: 07/30/18 04:00 Dose: 70 mls/hr Meropenem (Merrem Iv 1 Gm Premix) 1 gm in 50 mls @ 100 mls/hr IVPB Q8 [facility]; Protocol Stop: 08/07/18 22:01 Last Admin: 07/30/18 06:17 Dose: 100 mls/hr Potassium Chloride (Potassium Chloride 10 Meq/100 Ml) 10 meq in 100 mls @ 50 m ls/hr IVPB Q2H [facility] Stop: 07/30/18 15:29 Loratadine (Claritin) 10 mg PO DAILY [facility] Last Admin: 07/30/18 09:14 Dose: 10 mg Magnesium Oxide (Mag-Ox) 400 mg PO BID [facility] Last Admin: 07/30/18 12:57 Dose: 400 mg Mirtazapine (Remeron) 15 mg PO HS [facility] Last Admin: 07/29/18 22:00 Dose: 15 mg Montelukast Sodium (Singulair) 10 mg PO DAILY [facility] Last Admin: 07/30/18 09:14 Dose: 10 mg Multivitamins/Minerals (Therapeutic-M Tab) 1 tab PO DAILY [facility] Last Admin: 07/30/18 09:14 Dose: 1 tab Nicotine (Nicoderm Cq) 1 patch TD DAILY [facility] Last Admin: 07/30/18 09:14 Dose: 1 patch Oxycodone/Acetaminophen (Percocet 5/325 Mg Tab) 1 tab PO Q6H [facility] Stop: 08/01/18 13:01 Last Admin: 07/30/18 06:16 Dose: 1 tab Pantoprazole Sodium (Protonix Ec Tab) 40 mg PO DAILY [facility] Last Admin: 07/30/18 09:14 Dose: 40 mg Potassium Chloride (K-Dur 20 Meq Er Tab) 20 meq PO DAILY [facility] Last Admin: 07/30/18 09:14 Dose: 20 meq Potassium Chloride (K-Dur 20 Meq Er Tab) 40 meq PO ONCE [facility] Last Admin: 07/30/18 12:57 Dose: 40 meq - Labs Labs: 07/30/18 09:24 07/30/18 09:24 PT 15.0 SECONDS (9.4-12.5) H 07/29/18 10:35 INR 1.33 07/29/18 10:35 APTT 27.1 Seconds (26.9-38.3) 07/29/18 10:35 - Constitutional Appears: Well, Non-toxic, No Acute Distress - Head Exam Head Exam: ATRAUMATIC, NORMAL INSPECTION, NORMOCEPHALIC - Eye Exam Eye Exam: EOMI, Normal appearance Pupil Exam: NORMAL ACCOMODATION, PERRL - ENT Exam ENT Exam: Mucous Membranes Moist, Normal Exam Additional comments: packing rapid rhino in place left nares no bleeding throat; no active bleeding neck wnl supple no adenopathy - Neck Exam Neck Exam: Full ROM, Normal Inspection - Respiratory Exam Respiratory Exam: NORMAL BREATHING PATTERN Assessment and Plan (1) AML (acute myeloblastic leukemia) Status: Acute (2) Epistaxis Status: Acute (3) Thrombocytopenia Status: Acute (4) Back pain Status: Acute (5) COPD exacerbation Status: Acute (6) Chest pain Status: Acute (7) Near syncope Status: Acute (8) Neutropenia Status: Acute (9) Pneumonia Status: Acute (10) Symptomatic anemia Status: Acute (11) Weakness Status: Acute - Assessment and Plan (Free Text) Plan: maintain packing another 24-48 hours dependent on coagulation and CBC count-pt receiving transfusion today
--- NOTE | 2018-07-30 16:44 | CON ---
DATE: 07/30/2018 PULMONARY CONSULT NOTE REFERRING PHYSICIAN: August Lara MD REASON FOR CONSULT: Cough, shortness of breath, COPD. HISTORY OF PRESENT ILLNESS: This is a 53-year-old female known to us from previous admission with past medical history significant for leukemia, neutropenia, thrombocytopenia, asthma, sickle cell, right breast mastectomy, depression, COPD, history of lung transplant. The patient presented to the emergency room complaining of epistaxis for an hour. She reports that she was sitting at home when her nose started to bleed suddenly and would not stop. Does report that she had dizziness associated with epistaxis. At this time, the patient seen sitting up in bed, reports feeling well. States that she still does have cough and shortness of breath at times. The patient was recently discharged from the hospital on 07/27/2018, where she was treated for pneumonia and neutropenia. PAST MEDICAL HISTORY: As per history of present illness. ALLERGIES: NO KNOWN ALLERGIES. FAMILY HISTORY: Mother had pancreatic, gastric cancer, father IA. SOCIAL HISTORY: No EtOH abuse. No illicit drug use. Former smoker, recently quit in 07/2018. MEDICATIONS: Reviewed. Tylenol 650 every 6 hours p.r.n. fever greater than 100.4, albuterol 2.5 mg inhalation every 6 hours p.r.n., Norvasc 10 mg daily, Brovana 15 mcg every 12 hours, atenolol 25 mg twice a day, Pulmicort 0.5 mg inhalation every 12 hours, Klonopin 0.5 mg twice a day, Claritin 10 mg daily, magnesium oxide 400 mg twice a day, meropenem 1 g every 8 hours, Remeron 15 mg at bedtime, Singulair 10 mg daily, multivitamin 1 tab daily, nicotine patch transdermal daily, Percocet 5/325 mg 1 tab every 6 hours, Protonix 40 mg daily, potassium chloride 20 mEq daily, potassium chloride 10 mEq in 100 mL with 50 mL per hour every 2 hours, sodium chloride 0.9% 1000 mL with 70 mL per hour. REVIEW OF SYSTEMS: No headache, rhinitis, chest pain, abdominal pain, nausea, vomiting, diarrhea, leg pain or leg swelling reported. The patient does report having occasional cough and shortness of breath with exertion. PHYSICAL EXAMINATION GENERAL: No acute distress. VITAL SIGNS: Blood pressure 130/64, pulse 82, temperature 97.8, oxygen saturation 97% on room air. HEENT: Moist mucous membranes. Mallampati score of 4. Crowded airway. NECK: Supple. No JVD. CHEST: Few rhonchi bilaterally. CARDIOVASCULAR: S1 and S2. ABDOMEN: Soft and nontender. No distension. No organomegaly. EXTREMITIES: No bilateral lower extremity edema. NEUROLOGIC: Awake, alert, verbal. Follows commands. LABORATORY DATA: Reviewed. WBC 6, RBC 3.26, hemoglobin 6.7, hematocrit 20.8 and platelets 61. PT 15, INR 1.23, APTT 27.1. Sodium 140, potassium 3.5, chloride 100, carbon dioxide 35, anion gap 8, BUN 29, creatinine 0.6, GFR greater than 60, random glucose 137, calcium 7.8, magnesium 1.8, total bilirubin 0.6. AST 21, ALT 35, alkaline phosphatase 68, total protein 5.2, albumin 2.5, globulin 2.7, albumin-globulin ratio 0.9. Procalcitonin 0.15. Blood cultures preliminary, no growth after 24 hours. Chest x-ray showed interval improvement in lower lobe infiltrates and decrease in bilateral pleural effusions. EKG showed sinus tachycardia. IMPRESSION AND PLAN: Epistaxis, thrombocytopenia, anemia, sickle cell anemia, asthma, chronic obstructive pulmonary disease, history of lung cancer in 2006, history of breast cancer in 2004, leukemia. Agree with present treatment. Continue inhaled bronchodilators, gastric prophylaxis. Continue leukotriene inhibitors. Continue antibiotic therapy per Infectious Disease. The patient presently receiving blood transfusion. We will add nasal saline spray. We recommend pulmonary function test and sleep study as outpatient for this patient. We will add SCDs to bilateral lower extremities for deep venous thrombosis prophylaxis. The patient was seen and examined with Dr. Maurer. Discussed assessment and plan as described above. The patient was seen and examined with Henry Marquez, nurse practitioner. Discussed assessment and plan as described above. Thank you for this consult. We will follow with you. Henry Marquez APN Solange Maurer MD [facility] # [id number]
--- NOTE | 2018-07-31 00:49 | PN ---
DATE: 07/30/2018 SUBJECTIVE: The patient is in bed, no acute distress, nontoxic, was seen earlier this morning. PHYSICAL EXAMINATION: VITAL SIGNS: Temperature is 98, blood pressure is 110/70, respiratory rate of 18. HEENT: Unremarkable. NECK: Supple. LUNGS: Decreased breath sound. HEART: Normal, S1, S2. ABDOMEN: Soft, nontender. LABORATORY DATA: Examination as noted. ASSESSMENT AND PLAN: This is a 53-year-old female with history of myelodysplastic syndrome; history of lung cancer, on chemotherapy; chronic obstructive lung disease; sickle cell; history of endocarditis; acute kidney injury, recently had been hospitalized with septic shock with neutropenia, which was treated with antibiotics, admitted with thrombocytopenia and epistaxis. Waiting for culture results, first part of blood cultures are negative. The patient does have a peripherally inserted central catheter line in the left arm, currently off antibiotics and was given one dose of vancomycin, currently on meropenem. Pulmonary consultation is reviewed. Procalcitonin is 0.15. We will check on her final cultures as needed. Most likely, discontinue the meropenem in the next 24 hours. Terrance Juan MD
[2018-07-31] MEDS: Oxycodone/Acetaminophen 5/325 mg Tab PO SCH ×5 (00:59→20:30)
[2018-07-31] MEDS: Meropenem IV 1 gm in NS 1 GM/50 ML BAG IVPB SCH (05:43)
[2018-07-31] MEDS: Arformoterol 15 mcg/2 ml Inh Sol IH SCH ×2 (07:36→19:41)
[2018-07-31] MEDS: Budesonide 0.5 mg/2 ml Inhal Susp UD IH SCH ×2 (07:37→19:41)
[2018-07-31] MEDS ORDERED: Potassium Chloride 20 mEq ER Tab PO SCH (08:15)
[2018-07-31 09:15] LABS: BASO # 0.04 K/mm3 (0.0-2.0); BASO % 0.6 % (0.0-3.0); HEMOGLOBIN 10.6 g/dL (12.0-16.0); LYMPH # 2.5 (1.2-3.4); LYMPH % 39.1 % (22.0-35.0); MEAN CORPUSCULAR HEMOGLOBIN 29.4 pg (25.0-35.0); MEAN CORPUSCULAR HGB CONC 32.7 g/dl (31.0-37.0); MEAN PLATELET VOLUME 8.5 fl (7.0-11.0); MONO # 1.4 (0.1-0.6); MONO % 22.7 % (1.0-6.0); RED CELL DISTRIBUTION WIDTH 16.4 % (11.5-14.5); WHITE BLOOD COUNT 6.4 10^3/uL (4.5-11.0)
[2018-07-31 09:23] LABS: PLATELET COUNT 40 10^3/uL (120.0-450.0)
[2018-07-31] MEDS ORDERED: Potassium Chloride 20 mEq ER Tab PO ONE (09:29)
[2018-07-31 10:10] LABS: BLOOD UREA NITROGEN 18 mg/dL (7-21); CALCIUM 8.4 mg/dL (8.4-10.5); GFR NON-AFRICAN AMERICAN > 60
[2018-07-31 10:29] LABS: ATYPICAL LYMPHOCYTE 12 % (0.0-0.0); BAND 2 % (0-2); EOSINOPHIL 14 % (0.0-3.0); LYMPHOCYTE 45 % (22.0-35.0); MONOCYTE 2 % (1.0-6.0); NEUTROPHIL 25 % (50.0-70.0)
[2018-07-31] MEDS: Magnesium Oxide 400 mg Tab UD PO SCH ×2 (10:48→17:58)
[2018-07-31] MEDS: Potassium Chloride 20 mEq ER Tab PO SCH ×3 (10:49→17:57)
[2018-07-31] MEDS: Pantoprazole 40 mg EC Tab PO SCH (10:51)
[2018-07-31] MEDS: Multivitamin With Minerals Tab PO SCH (10:51)
[2018-07-31] MEDS: Sodium Chloride 0.9% 1,000 ML IV SCH (10:53)
--- NOTE | 2018-07-31 11:38 | PN ---
DATE: 07/31/2018 PULMONARY PROGRESS NOTE REFERRING PHYSICIAN: August Lara MD SUBJECTIVE: The patient is seen, sitting up in bed. No acute distress. No overnight events reported. Reports feeling well this morning. States that cough has improved, still has shortness of breath with exertion. Appetite is good. No headache, rhinitis, chest pain, abdominal pain, nausea, vomiting, diarrhea, leg pain or leg swelling reported. OBJECTIVE GENERAL: No acute distress. VITAL SIGNS: Blood pressure 153/79, pulse 87, temperature 98.5 and oxygen saturation 94% on nasal cannula. HEENT: Moist mucous membranes. Crowded airway. Mallampati score of 4. NECK: Supple. No JVD. RESPIRATORY: Few rhonchi bilaterally. CARDIOVASCULAR: S1 and S2. ABDOMEN: Soft and nontender. No distention. No organomegaly. EXTREMITIES: No bilateral lower extremity edema. NEUROLOGIC: Awake, alert and verbal. Following commands. MEDICATIONS: Reviewed. Tylenol 650 mg every 6 hours p.r.n. fever greater than 100.4, albuterol 2.5 mg inhalation every 6 hours p.r.n., Norvasc 10 mg daily, Brovana 15 mcg inhalation every 12 hours, atenolol 25 mg twice a day, Pulmicort 0.5 mg every 12 hours, Klonopin 0.5 mg twice a day, Claritin 10 mg daily, magnesium oxide 400 mg twice a day, meropenem 1 g every 8 hours, Remeron 15 mg at bedtime, Singulair 10 mg daily, multivitamin and minerals 1 tab daily, nicotine patch transdermal daily, Percocet 5/325 mg 1 tab every 6 hours, Protonix 40 mg daily, potassium chloride 20 mEq daily, potassium chloride 40 mEq every 6 hours, sodium chloride 0.9% a 1000 mL at 70 mL per hour and Leon nasal spray 4 times a day. LABORATORY DATA: Reviewed. WBC 6.4, RBC 3.6, hemoglobin 10.6, hematocrit 32.4 and platelets 40. Sodium 142, potassium 3.2, chloride 104, carbon dioxide 33, anion gap 8, BUN 18, creatinine 0.6, GFR greater than 60, random glucose 91 and calcium 8.4. Blood cultures preliminary, no growth after 24 hours. IMPRESSION AND PLAN: Epistaxis, thrombocytopenia, anemia, sickle cell anemia, asthma, chronic obstructive pulmonary disease, history of lung cancer, history of breast cancer and leukemia. Continue inhaled bronchodilators, gastric prophylaxis, continue antibiotic therapy per Infectious Disease, continue leukotriene inhibitors. We will order physical therapy, out of bed to chair. Followup with CBC and CMP in the morning. We recommend the patient have pulmonary function test and sleep study as outpatient. Continue sequential compression devices to bilateral lower extremities for deep venous thrombosis prophylaxis as the patient cannot be on chemical prophylaxis due to current anemia status. This patient was seen and examined with Dr. Maurer. Discussed assessment and plan as described above. This patient was seen and examined with Henry Marquez, nurse practitioner. Discussed assessment and plan as described above. Thank you for this consult and we will follow with you. Henry Marquez APN Solange Maurer MD
--- NOTE | 2018-07-31 12:44 | PN ---
DATE: 07/30/2018 SUBJECTIVE: A 53-year-old female. The patient is comfortable. No more nosebleeds, but she still has the left nostril balloon for tamponade for the bleeding. Seems stable. PHYSICAL EXAMINATION: VITAL SIGNS: Temperature 97.9, heart rate 83, blood pressure 122/71, respirations 18. HEAD AND NECK: Exam normal. No JVD. No thyromegaly. CHEST: Clear bilateral. CARDIAC: First sound, second sound normal. No murmur, rub, or gallop. ABDOMEN: Soft and nontender. EXTREMITIES: No edema. NEUROLOGIC: Normal. LABORATORY DATA: Her laboratory study on 07/30/2018 is as follows; white count 6, hemoglobin 6.7, hematocrit 20.8, platelets 61. Sodium 141, potassium 2.7, chloride 101, bicarb 36, BUN 33, creatinine 0.5. IMPRESSION AND PLAN: 1. Sepsis secondary to left nostril bleed, low platelets maybe contributing factors versus dry nose. 2. Pancytopenia, myelodysplasia, possible leukemia. Dr. Lopez followup. Continue replacement of platelets and hemoglobin to be transfused of 2 units of packed RBCs. We will repeat labs in the morning. 3. Hypokalemia. Potassium replaced. Continue followup on that. We will repeat labs in the morning. The patient's platelets 61. Before discharge last time, it was 3000, on discharge before this admission. We will continue to monitor the platelet. 4. Chronic obstructive pulmonary disease. The patient to continue on inhaled bronchodilators. 5. The patient has active smoking, hypertension. Continue Norvasc, Nicoderm, metoprolol. 6. Possible sepsis. She did have a gram-negative . Continue Merrem and blood culture has been ordered. Followup with ID consult. Continue current therapy. August Lara MD
--- NOTE | 2018-07-31 14:06 | PN ---
DATE: 07/31/2018 SUBJECTIVE: The patient is in bed, in no acute distress, nontoxic. PHYSICAL EXAMINATION: VITAL SIGNS: Temperature 98, blood pressure 150/70, respiratory rate 18, heart rate 87. HEENT: Examination of HEENT is unremarkable. NECK: Supple. LUNGS: Decreased breath sounds. HEART: Normal S1, S2. ABDOMEN: Soft. LABORATORY DATA: Laboratory examination reveals a white count of 6.4, hemoglobin of 10, platelets of 40. BUN of 18, creatinine 0.6, procalcitonin 0.15. Microbiology is noted. Urine culture is negative. Blood culture is negative. ASSESSMENT AND PLAN: This is a 53-year-old female with a history of myelodysplastic syndrome, history of lung cancer, chemotherapy, chronic obstructive lung disease, sickle cell disease, history of endocarditis, acute kidney injury; hospitalized with septic shock, neutropenia; was treated with antibiotics; admitted with thrombocytopenia; and admitted on this admission with thrombocytopenia, epistaxis. All cultures are negative. Procalcitonin is negative. Chest x-ray is noted. We will discontinue the meropenem. No further antibiotics necessary Terrance Juan MD
--- NOTE | 2018-07-31 16:24 | CP.PCM.CON ---
History of Present Illness - History of Present Illness History of Present Illness: Nephrology Consultation Note: Assessment: critical Hypokalemia ? etiology also withh metabolic alkalosis. r/o hyperaldo state Hypomagnesemia sickel cell anemia, Breast and lung CA, MDS ? leukemia, COPD CHF with LVEF 45% and hypertension (recent) anemia of acute blood loss, epistaxis and thrombocytopenia Plan No acute need for renal replacement therapy at this time. Hypertension control with meds as ordered. Maintain hemodynamics stable. Avoid hypotension. Patient not on ACEI/ARB hence add losartan 25 mg/d Monitor Input/Output, daily weights and renal function with basic metabolic panel consider to d/c IVF in view of CHF and pleural effusion supplement lytes as ordered heme, ENT, ID< pulmonary following Check urine analysis, Na/Cr/Osmol/K and Cl work up with plasma renin/aldosterone Dose meds/antibiotics for GFR >60 Glycemic control Further work up/management as per primary team Thanks for allowing me to participate in care of your patient. Will follow patient with you. Please call if any Qs Dr Johnny Angel Office: [phone] Chief Complaint; bleeding from nose Reason for consult: Hypokalemia HPI: Pt is a 53 F with hx of sickel cell anemia, Breast and lung CA, MDS ? leukemia, COPD CHF with LVEF 45% and hypertension (recent) presented with complaints of epistasix with low plat count, anemia of acute blood loss. renal consult for low K Denies OTC/herbal meds or NSAIDs No recent iodinated contrast exposure. No obvious episodes of low BP. she feels better. has decreased appetite but oral intake better ROS: Cardiovascular: No chest pain. Pulmonary: No shortness of breath at rest Gastrointestinal: denies abdominal pain No nausea. No vomiting. Genitourinary: No pain while urinating. Denies blood in urine. All other negative except as mentioned in HPI. Physical Examination: General Appearance: Comfortable, in no acute respiratory distress, co-operative . ill apeparing Vitals reviewed and noted as below Head; Atraumatic, normocephalic ENT: no ulcers no thrush. Tongue is midline. Oropharynx: no rash or ulcers. nasal packing + EYES: Pupils are equal, round and reactive to light accommodation. Eye muscles and extraocular movement intact. Sclera is anicteric. Neck; supple no lymphadenopathy, no thyromegaly or bruit Lungs: Normal respiratory rate/effort. Breath sounds bilateral reduced at bases with cracles Heart: Normal rate. s1s2 normal. No rub or gallop. Extremities: trace edema. No varicose veins Neurological: Patient is alert, awake and oriented to person, place and time. No focal deficit. Strength bilateral appropriate and equal Skin: Warm and dry. Normal turgor. No rash. Palpitation: Normal elasticity for age Abdomen: Abdomen is soft. Bowel sounds +. There is no abdominal tenderness, no guarding/rigidity no organomegaly Psych: normal insight and normal affect/mood MSK: no joint tenderness or swelling. Digits and nails normal, no deformity : kidney or bladder not palpable Labs/imaging reviewed. Past medical history, past surgical history, family history, social history, allergy reviewed and noted as below Family hx: no hx of CKD. Rest non-contributory CT adrenal wnl LVEF 45% CXR pulm cogestion and pleural effusion Past Patient History - Infectious Disease Hx of Infectious Diseases: None - Tetanus Immunizations Tetanus Immunization: Unknown - Past Social History Smoking Status: Former Smoker - CARDIAC Hx Pacemaker: No - PULMONARY Hx Chronic Obstructive Pulmonary Disease (COPD): Yes - NEUROLOGICAL Hx Neurological Disorder: No - HEENT Hx HEENT Problems: No - RENAL Other/Comment: "englarged kidney" - ENDOCRINE/METABOLIC Hx Endocrine Disorders: No - HEMATOLOGICAL/ONCOLOGICAL Hx Blood Disorders: Yes Hx Anemia: Yes Hx Cancer: Yes (breast, lung) Other/Comment: SLE - INTEGUMENTARY Hx Dermatological Problems: No - MUSCULOSKELETAL/RHEUMATOLOGICAL Hx Musculoskeletal Disorders: No - GASTROINTESTINAL Hx Gastrointestinal Disorders: Yes (CONSTIPATION,WEIGHT LOSS 14 LBS .) - GENITOURINARY/GYNECOLOGICAL Hx Genitourinary Disorders: No - PSYCHIATRIC Hx Depression: Yes Hx Substance Use: No - SURGICAL HISTORY Hx Mastectomy: No - ANESTHESIA Hx Anesthesia: Yes Hx Anesthesia Reactions: No Hx Malignant Hyperthermia: No Meds Allergies/Adverse Reactions: Allergies Allergy/AdvReac Type Severity Reaction Status Date / Time No Known Allergies Allergy Verified 07/29/18 10:28 - Medications Medications: Current Medications Acetaminophen (Tylenol 325mg Tab) 650 mg PO Q6H PRN PRN Reason: Fever >100.4 F Albuterol Sulfate (Albuterol 0.083% Inhal Raysa (2.5 Mg/3 Ml) Ud) 2.5 mg IH [id number] PRN PRN Reason: Cough and congestion Amlodipine Besylate (Norvasc) 10 mg PO DAILY [facility] Last Admin: 07/31/18 10:51 Dose: 10 mg Arformoterol Tartrate (Brovana) 15 mcg IH [id number] [facility] Last Admin: 07/31/18 07:36 Dose: 15 mcg Atenolol (Tenormin) 25 mg PO BID [facility] Last Admin: 07/31/18 10:51 Dose: 25 mg Budesonide (Pulmicort Respules) 0.5 mg IH [id number] [facility] Last Admin: 07/31/18 07:37 Dose: 0.5 mg Clonazepam (Klonopin) 0.5 mg PO BID [facility]; Protocol Last Admin: 07/31/18 10:48 Dose: 0.5 mg Sodium Chloride (Sodium Chloride 0.9%) 1,000 mls @ 70 mls/hr IV .[id number] [facility] Last Admin: 07/31/18 10:53 Dose: Not Given Loratadine (Claritin) 10 mg PO DAILY [facility] Last Admin: 07/31/18 10:51 Dose: 10 mg Magnesium Oxide (Mag-Ox) 400 mg PO BID [facility] Last Admin: 07/31/18 10:48 Dose: 400 mg Mirtazapine (Remeron) 15 mg PO HS [facility] Last Admin: 07/30/18 22:46 Dose: 15 mg Montelukast Sodium (Singulair) 10 mg PO DAILY [facility] Last Admin: 07/31/18 10:55 Dose: 10 mg Multivitamins/Minerals (Therapeutic-M Tab) 1 tab PO DAILY [facility] Last Admin: 07/31/18 10:51 Dose: 1 tab Nicotine (Nicoderm Cq) 1 patch TD DAILY [facility] Last Admin: 07/31/18 10:52 Dose: 1 patch Oxycodone/Acetaminophen (Percocet 5/325 Mg Tab) 1 tab PO Q6H [facility] Stop: 08/01/18 13:01 Last Admin: 07/31/18 13:00 Dose: Not Given Pantoprazole Sodium (Protonix Ec Tab) 40 mg PO DAILY [facility] Last Admin: 07/31/18 10:51 Dose: 40 mg Potassium Chloride (K-Dur 20 Meq Er Tab) 40 meq PO Q6 [facility] Stop: 08/01/18 12:01 Last Admin: 07/31/18 12:27 Dose: Not Given Sodium Chloride ([place] Nasal [place]) 0 ml NS QID [facility] Last Admin: 07/31/18 15:58 Dose: Not Given Results - Vital Signs Recent Vital Signs: Last Vital Signs Temp 97.9 F 07/31/18 12:00 Pulse 86 07/31/18 12:00 Resp 20 07/31/18 12:00 BP 150/80 07/31/18 12:00 Pulse Ox 94 L 07/31/18 06:00 - Labs Result Diagrams: 07/31/18 09:00 07/31/18 08:15 Labs: Laboratory Results - last 24 hr 07/29/18 07/31/18 07/31/18 10:30 05:55 08:15 WBC RBC Hgb Hct MCV MCH MCHC RDW Plt Count Manual Plt Count 45 L* MPV Neut % (Auto) Lymph % (Auto) Nye % (Auto) Eos % (Auto) Baso % (Auto) Lymph # (Auto) Nye # (Auto) Eos # (Auto) Baso # (Auto) Absolute Neuts (auto) Neutrophils % (Manual) Band Neutrophils % Lymphocytes % (Manual) Atypical Lymphs % Monocytes % (Manual) Eosinophils % (Manual) Sodium 142 Potassium 3.2 L Chloride 104 Carbon Dioxide 33 Anion Gap 8 L BUN 18 Creatinine 0.6 L Est GFR ( Amer) > 60 Est GFR (Non-Af Amer) > 60 Random Glucose 91 Calcium 8.4 Blood Type B POSITIVE Antibody Screen Negative Crossmatch See Detail BBK History Checked Patient has bt 07/31/18 09:00 WBC 6.4 RBC 3.60 Hgb 10.6 L D Hct 32.4 L MCV 90.0 MCH 29.4 MCHC 32.7 RDW 16.4 H Plt Count 40 L* Manual Plt Count MPV 8.5 Neut % (Auto) 37.6 L Lymph % (Auto) 39.1 H Nye % (Auto) 22.7 H Eos % (Auto) 0.0 L Baso % (Auto) 0.6 Lymph # (Auto) 2.5 Nye # (Auto) 1.4 H Eos # (Auto) 0.0 Baso # (Auto) 0.04 Absolute Neuts (auto) 2.39 Neutrophils % (Manual) 25 L Band Neutrophils % 2 Lymphocytes % (Manual) 45 H Atypical Lymphs % 12 H Monocytes % (Manual) 2 Eosinophils % (Manual) 14 H Sodium Potassium Chloride Carbon Dioxide Anion Gap BUN Creatinine Est GFR ( Amer) Est GFR (Non-Af Amer) Random Glucose Calcium Blood Type Antibody Screen Crossmatch BBK History Checked
[2018-07-31 21:03] LABS: URINE BILIRUBIN NEGATIVE (NEGATIVE); URINE BLOOD NEGATIVE (NEGATIVE); URINE GLUCOSE (UA) NEGATIVE (NEGATIVE); URINE LEUKOCYTE ESTERASE NEGATIVE Leu/uL (NEGATIVE); URINE PROTEIN NEGATIVE mg/dL (<30 mg/dL); URINE UROBILINOGEN 0.2 E.U./dL (<1 E.U./dL)
[2018-07-31 21:07] LABS: URINE APPEARANCE CLEAR (CLEAR); URINE COLOR YELLOW (YELLOW)
[2018-07-31 21:16] LABS: OSMOLALITY,URINE 238 mosm/kg (300-1000)
--- NOTE | 2018-07-31 21:43 | PN ---
DATE: 07/31/2018 PROGRESS NOTE AND FOLLOWUP SUBJECTIVE: Ms. Pope is a patient of Dr. Lara undergoing chemotherapy, has had thrombocytopenia and recurrent epistaxis, on Monday was admitted for acute epistaxis with a nasal packing at which time a Rhino Rocket was placed and over last 48 to 72 hours has continued to be dry without active bleeding, is now seen at bedside tolerating a light meal and no noted signs of bleeding either anterior or posteriorly. On oral exam, posterior oropharynx is noted to be dry. Rhino Rocket was inflated with air only without saline. It was then deflated and observed for 10 to 15 minutes at which time, the balloon was then removed and then observed for another 10 to 15 minutes with no active bleeding. ASSESSMENT AND PLAN: The patient does have thrombocytopenia. We will continue to monitor over the next 24 to 48 hours. No active bleeding post removal. Please place in chart. Ming Cook DO
[2018-08-01] MEDS: Oxycodone/Acetaminophen 5/325 mg Tab PO SCH ×4 (00:10→17:47)
--- NOTE | 2018-08-01 04:33 | PN ---
DATE: 07/31/2018 ONCOLOGY PROGRESS NOTE LOCATION: The patient is in room 271, bed 2. SUBJECTIVE: The patient is seen sitting up in the bed. She is in no acute distress. No acute events overnight. The patient has had no significant bleed since the admission, feels well, states that the cough has improved, still has shortness of breath on exertion. No further nosebleeds. Appetite is good. Denies any headaches, rhinitis, chest pain, abdominal pain, nausea, vomiting, diarrhea, leg pain, or leg cramps. OBJECTIVE: GENERAL: The patient is in no acute distress. VITAL SIGNS: Stable as stated in the chart. Blood pressure is 115/79, pulse is 87, T-max 98.4, O2 saturation is 94% nasal cannula. HEENT: Head is normocephalic and atraumatic. Crowded airways are noted. Exam of the oropharynx reveals no oropharyngeal lesions. Tongue is moist. NECK: Supple. There is no adenopathy. LUNGS: Reveal bilateral rhonchi. CARDIOVASCULAR SYSTEM: Reveals S1 and S2 to be normal. No gallops or murmurs heard. ABDOMEN: Soft and nontender. No rebound, rigidity, or guarding is noted. EXTREMITIES: Reveal no cyanosis, clubbing, or edema. NEUROLOGIC: Reveals no focal deficits. The patient does have an abnormal gait and has to use a walker. MEDICATIONS: Reviewed. The patient is on Tylenol 650 every 6 hours p.r.n., she is on albuterol 2.5 mg inhaled every 6 hours, Norvasc 10 mg daily, Brovana 15 mcg inhalation every 12 hours, atenolol 25 mg b.i.d., Pulmicort 0.5 mg every 12 hours, Klonopin 0.5 mg b.i.d., Claritin 10 mg daily, magnesium oxide 400 mg twice a day, meropenem 1 g every 8 hours, Remeron 15 at bedtime, Singulair 10 mg daily, multivitamins one tablet daily, nicotine transdermal patch daily, Percocet 5/325 one tablet every 6 hours p.r.n., Protonix 40 mg daily, KCl 20 mEq daily, IV fluid of 0.9 normal saline at 70 mL an hour, [place] spray nasal spray four times a day. LABORATORY DATA: Reviewed. The white count is 6.4, hemoglobin 10.6, hematocrit is 32, platelet count is 40,000. Sodium is 142, potassium 3.2, chloride 104, CO2 of 33, anion gap is 8, BUN is 18, creatinine is 0.6, random blood sugar is 91. Calcium is 8.4. Blood cultures are negative so far. ASSESSMENT, NOTES, AND PLAN: The patient has accelerated myelodysplastic syndrome for which she was on cyclical therapy with cytarabine which is on hold since the patient came in to the hospital with hypotension and pneumonia for which she was treated with antibiotics and discharged. Then now, revisit for epistaxis and thrombocytopenia, sickle cell disease, asthma, chronic obstructive lung disease, history of lung cancer status post resection, history of breast cancer, early disease, currently not on any treatment. We will continue inhaled steroids and bronchodilators. Continue antibiotic therapy as per Infectious Disease. We will follow up on complete blood count and chemistries, then make appropriate decisions. If the nosebleed continues to remain abated and the counts are stable, we will plan on initiating her next cycle of therapy in the very near future. The patient may need a repeat marrow to assess the extent of the disease, especially if her counts are dipping very fast. The patient requires at least blood transfusion on an every other week basis right now along with significant thrombocytopenia requiring intermittent platelet transfusions as well. We will make the decision over the next 48 hours about repeating a marrow as well. Last bone marrow was done about eight months ago at [facility]. The patient was diagnosed to have accelerated myelodysplastic syndromes on flow cytometric analysis done at our institution and then the patient was transferred to [place]. Routine post-examination instructions have been given to the patient. Laboratories have been requested for the morning. Please make a note, this is a complex patient with multiple comorbid medical issues. Time spent with the patient was greater than 45 minutes. Please make a note that more than 50% of the time was spent on [id number] contact with the patient. Delfin Lopez MD
--- NOTE | 2018-08-01 06:32 | CP.PCM.PN ---
Subjective - Date & Time of Evaluation Date of Evaluation: 08/01/18 Time of Evaluation: 06:32 - Subjective Subjective: Leonidas Pardo PGY2 - Heme/Onc Progress Note for Dr. Lopez Patient seen and examined this AM. No acute events reported overnight. Patient indicates continued fatigue and weakness. She denies epistaxis or other sources of bleeding. She denies chest pain, shortness of breath, abdominal pain, nausea, vomiting, fever, chills. Objective - Vital Signs/Intake and Output Vital Signs (last 24 hours): Temp Pulse Resp BP Pulse Ox 98.6 F 78 20 133/71 96 08/01/18 05:59 08/01/18 05:59 08/01/18 05:59 08/01/18 05:59 08/01/18 05:59 Intake and Output: 07/31/18 08/01/18 18:59 06:59 Intake Total 440 2280 Output Total 1400 1400 Balance -960 880 - Medications Medications: Current Medications Acetaminophen (Tylenol 325mg Tab) 650 mg PO Q6H PRN PRN Reason: Fever >100.4 F Acyclovir (Zovirax) 200 mg PO 5XD [facility]; Protocol Last Admin: 08/01/18 06:30 Dose: 200 mg Albuterol Sulfate (Albuterol 0.083% Inhal Raysa (2.5 Mg/3 Ml) Ud) 2.5 mg IH [id number] PRN PRN Reason: Cough and congestion Amlodipine Besylate (Norvasc) 10 mg PO DAILY [facility] Last Admin: 07/31/18 10:51 Dose: 10 mg Arformoterol Tartrate (Brovana) 15 mcg IH [id number] [facility] Last Admin: 07/31/18 19:41 Dose: 15 mcg Atenolol (Tenormin) 25 mg PO BID [facility] Last Admin: 07/31/18 17:57 Dose: 25 mg Budesonide (Pulmicort Respules) 0.5 mg IH [id number] [facility] Last Admin: 07/31/18 19:41 Dose: 0.5 mg Clonazepam (Klonopin) 0.5 mg PO BID [facility]; Protocol Last Admin: 07/31/18 18:00 Dose: 0.5 mg Fluconazole (Diflucan) 400 mg PO DAILY [facility]; Protocol Sodium Chloride (Sodium Chloride 0.9%) 1,000 mls @ 70 mls/hr IV .[id number] [facility] Last Admin: 07/31/18 10:53 Dose: Not Given Loratadine (Claritin) 10 mg PO DAILY [facility] Last Admin: 07/31/18 10:51 Dose: 10 mg Losartan Potassium (Cozaar) 25 mg PO QPM [facility] Last Admin: 07/31/18 17:58 Dose: 25 mg Magnesium Oxide (Mag-Ox) 400 mg PO BID [facility] Last Admin: 07/31/18 17:58 Dose: 400 mg Mirtazapine (Remeron) 15 mg PO HS [facility] Last Admin: 07/31/18 22:22 Dose: 15 mg Montelukast Sodium (Singulair) 10 mg PO DAILY [facility] Last Admin: 07/31/18 10:55 Dose: 10 mg Multivitamins/Minerals (Therapeutic-M Tab) 1 tab PO DAILY [facility] Last Admin: 07/31/18 10:51 Dose: 1 tab Nicotine (Nicoderm Cq) 1 patch TD DAILY [facility] Last Admin: 07/31/18 10:52 Dose: 1 patch Oxycodone/Acetaminophen (Percocet 5/325 Mg Tab) 1 tab PO Q6H [facility] Stop: 08/01/18 13:01 Last Admin: 08/01/18 06:30 Dose: 1 tab Pantoprazole Sodium (Protonix Ec Tab) 40 mg PO DAILY [facility] Last Admin: 07/31/18 10:51 Dose: 40 mg Potassium Chloride (K-Dur 20 Meq Er Tab) 40 meq PO Q6 [facility] Last Admin: 07/31/18 17:57 Dose: 40 meq Sodium Chloride ([place] Nasal [place]) 0 ml NS QID [facility] Last Admin: 07/31/18 23:29 Dose: Not Given - Labs Labs: 07/31/18 09:00 07/31/18 20:49 PT 15.0 SECONDS (9.4-12.5) H 07/29/18 10:35 INR 1.33 07/29/18 10:35 APTT 27.1 Seconds (26.9-38.3) 07/29/18 10:35 - Constitutional Appears: No Acute Distress, Older Than Stated Age - Head Exam Head Exam: ATRAUMATIC, NORMOCEPHALIC - Eye Exam Eye Exam: EOMI, PERRL - ENT Exam ENT Exam: Mucous Membranes Moist Additional comments: no evidence of epistaxis, dried, old blood - Neck Exam Neck Exam: Full ROM - Respiratory Exam Respiratory Exam: Decreased Breath Sounds, NORMAL BREATHING PATTERN - Cardiovascular Exam Cardiovascular Exam: REGULAR RHYTHM, +S1, +S2 - GI/Abdominal Exam GI & Abdominal Exam: Soft, Normal Bowel Sounds. absent: Guarding, Rigid - Extremities Exam Extremities Exam: Full ROM, Pedal Edema (mild ) - Neurological Exam Neurological Exam: Alert, Awake, Oriented x3 Additional comments: motor and sensory grossly intact - Psychiatric Exam Psychiatric exam: Normal Affect, Normal Mood - Skin Skin Exam: Dry, Warm Assessment and Plan - Assessment and Plan (Free Text) Assessment: 53-year old female with accelerated MDS s/p chemotherapy, immunosuppression, lung cancer s/p lobectomy, R breast mastectomy, COPD, endocarditis who presented to [facility] for epistaxis for one hour. Patient is s/p rapid rhino placement into left nares. Patient with continued thrombocytopenia secondary to progressive MDS. Plan: Accelerated MDS Thrombocytopenia Epistaxis - resolved - Accelerated MDS previously on cyclical therapy with cytaratine currently on hold secondary to previous hospital admission for PNA and acute drops in blood counts - Continue patient inhaled steroids adn bronchodilators - Continue to consider bone marrow examination for assessment of progression/status of MDS - Continue blood transfusions on an every other week schedule - Hemoglobin stable today, has trended downward - Platelet count is 36 and manual count is 36, continue to monitor - Discussed with patient possibility of discharge today or in next 24 hours with planned follow up in clinic for re-check of her CBC with a decision to be made at that time for further treatment plan for her accelerated MDS - Further recommendations as per Dr. Lopez
[2018-08-01] MEDS: Sodium Chloride 0.9% 1,000 ML IV SCH ×2 (06:50→13:40)
[2018-08-01 07:14] LABS: BASO # 0.03 K/mm3 (0.0-2.0); BASO % 0.5 % (0.0-3.0); EOS % 0.2 % (1.5-5.0); HEMOGLOBIN 10.3 g/dL (12.0-16.0); LYMPH # 2.9 (1.2-3.4); LYMPH % 51.1 % (22.0-35.0); MEAN CELL VOLUME 91.4 fl (80.0-105.0); MEAN CORPUSCULAR HEMOGLOBIN 29.4 pg (25.0-35.0); MEAN CORPUSCULAR HGB CONC 32.2 g/dl (31.0-37.0); MEAN PLATELET VOLUME 9.5 fl (7.0-11.0); MONO # 1.2 (0.1-0.6); MONO % 21.3 % (1.0-6.0); RED CELL DISTRIBUTION WIDTH 16.2 % (11.5-14.5); WHITE BLOOD COUNT 5.6 10^3/uL (4.5-11.0)
[2018-08-01 07:19] LABS: PLATELET COUNT 36 10^3/uL (120.0-450.0)
[2018-08-01 08:02] LABS: ALBUMIN 2.9 g/dL (3.0-4.8); ALT/SGPT 37 U/L (7-56); AST/SGOT 22 U/L (14-36); BLOOD UREA NITROGEN 11 mg/dL (7-21); CALCIUM 8.6 mg/dL (8.4-10.5); GFR NON-AFRICAN AMERICAN > 60
[2018-08-01] MEDS: Budesonide 0.5 mg/2 ml Inhal Susp UD IH SCH ×2 (08:21→19:26)
[2018-08-01] MEDS: Arformoterol 15 mcg/2 ml Inh Sol IH SCH ×2 (08:22→19:26)
[2018-08-01] MEDS: Magnesium Oxide 400 mg Tab UD PO SCH ×2 (09:26→17:40)
[2018-08-01] MEDS: Pantoprazole 40 mg EC Tab PO SCH (09:27)
[2018-08-01] MEDS: Multivitamin With Minerals Tab PO SCH (09:28)
--- NOTE | 2018-08-01 13:50 | PN ---
DATE: 08/01/2018 SUBJECTIVE: The patient is in bed in no acute distress, nontoxic. Seen earlier today. She is doing well. No fevers, no chills. PHYSICAL EXAMINATION: VITAL SIGNS: Temperature is 98, blood pressure is 120/70, respiratory rate of 16. HEENT: Unremarkable. NECK: Supple. LUNGS: Have decreased breath sounds. HEART: Normal S1, S2. ABDOMEN: Soft. LABORATORY EXAMINATION: Reveals the patient's white count is 5.6, hemoglobin of 10, platelets of 36. Chemistries are noted. Microbiology is reviewed and urinalysis is negative. Blood cultures negative. Urine cultures are negative. ASSESSMENT AND PLAN: This is a 53-year-old female with a history of myelodysplastic syndrome, history of lung cancer, chemotherapy, chronic obstructive lung disease, sickle cell disease, history of endocarditis, acute kidney injury hospitalized with septic shock, neutropenia, treated with antibiotics and currently now off of antibiotics. Cultures negative procalcitonin negative, chest x-ray is negative. Review of orders reveals the patient is off of antibiotics. Terrance Juan MD
[2018-08-01] MEDS ORDERED: Oxymetazoline 0.05% Nasal Spray (30 ml) NS PRN (14:00)
--- NOTE | 2018-08-01 14:37 | CP.PCM.PN ---
Subjective - Date & Time of Evaluation Date of Evaluation: 08/01/18 Time of Evaluation: 14:32 - Subjective Subjective: Nephrology Consultation Note: Assessment: stable Hypokalemia ? etiology also withh metabolic alkalosis. r/o hyperaldo state Hypomagnesemia sickel cell anemia, Breast and lung CA, MDS ? leukemia, COPD CHF with LVEF 45% and hypertension (recent) anemia of acute blood loss, epistaxis and thrombocytopenia Plan No acute need for renal replacement therapy at this time. Hypertension control with meds as ordered. Maintain hemodynamics stable. Avoid hypotension. increased losartan 50 mg/d Monitor Input/Output, daily weights and renal function with basic metabolic panel consider to d/c IVF in view of CHF and pleural effusion supplement lytes as ordered heme, ENT, ID, pulmonary following Check urine analysis, Na/Cr/Osmol/K and Cl work up with plasma renin/aldosterone Dose meds/antibiotics for GFR >60 Glycemic control Further work up/management as per primary team Thanks for allowing me to participate in care of your patient. Will follow patient with you. Please call if any Qs Dr Johnny Angel Office: [phone] Chief Complaint; bleeding from nose Reason for consult: Hypokalemia HPI: Pt is a 53 F with hx of sickel cell anemia, Breast and lung CA, MDS ? leukemia, COPD CHF with LVEF 45% and hypertension (recent) presented with complaints of epistasix with low plat count, anemia of acute blood loss. renal consult for low K Denies OTC/herbal meds or NSAIDs No recent iodinated contrast exposure. No obvious episodes of low BP. she feels better. has decreased appetite but oral intake better ROS: Cardiovascular: No chest pain. Pulmonary: No shortness of breath at rest Gastrointestinal: denies abdominal pain No nausea. No vomiting. Genitourinary: No pain while urinating. Denies blood in urine. All other negative except as mentioned in HPI. Physical Examination: General Appearance: Comfortable, in no acute respiratory distress, co-operative . ill appearing Vitals reviewed and noted as below Head; Atraumatic, normocephalic ENT: no ulcers no thrush. Tongue is midline. Oropharynx: no rash or ulcers. nasal packing removed EYES: Pupils are equal, round and reactive to light accommodation. Eye muscles and extra-ocular movement intact. Sclera is anicteric. Neck; supple no lymphadenopathy, no thyromegaly or bruit Lungs: Normal respiratory rate/effort. Breath sounds bilateral reduced at bases with crackles Heart: Normal rate. s1s2 normal. No rub or gallop. Extremities: trace edema. No varicose veins Neurological: Patient is alert, awake and oriented to person, place and time. No focal deficit. Strength bilateral appropriate and equal Skin: Warm and dry. Normal turgor. No rash. Palpitation: Normal elasticity for age Abdomen: Abdomen is soft. Bowel sounds +. There is no abdominal tenderness, no guarding/rigidity no organomegaly Psych: normal insight and normal affect/mood MSK: no joint tenderness or swelling. Digits and nails normal, no deformity : kidney or bladder not palpable Labs/imaging reviewed. Past medical history, past surgical history, family history, social history, allergy reviewed and noted as below Family hx: no hx of CKD. Rest non-contributory CT adrenal wnl LVEF 45% CXR pulm cogestion and pleural effusion Objective - Vital Signs/Intake and Output Vital Signs (last 24 hours): Temp Pulse Resp BP Pulse Ox 98.4 F 87 18 154/110 H 96 08/01/18 12:00 08/01/18 12:00 08/01/18 12:00 08/01/18 12:00 08/01/18 05:59 Intake and Output: 08/01/18 08/01/18 06:59 18:59 Intake Total 2760 700 Output Total 1600 Balance 1160 700 - Medications Medications: Current Medications Acetaminophen (Tylenol 325mg Tab) 650 mg PO Q6H PRN PRN Reason: Fever >100.4 F Acyclovir (Zovirax) 200 mg PO 5XD [facility]; Protocol Last Admin: 08/01/18 13:34 Dose: 200 mg Albuterol Sulfate (Albuterol 0.083% Inhal Raysa (2.5 Mg/3 Ml) Ud) 2.5 mg IH [id number] PRN PRN Reason: Cough and congestion Amlodipine Besylate (Norvasc) 10 mg PO DAILY [facility] Last Admin: 08/01/18 09:27 Dose: 10 mg Arformoterol Tartrate (Brovana) 15 mcg IH [id number] [facility] Last Admin: 08/01/18 08:22 Dose: 15 mcg Atenolol (Tenormin) 25 mg PO BID [facility] Last Admin: 08/01/18 09:28 Dose: 25 mg Budesonide (Pulmicort Respules) 0.5 mg IH [id number] [facility] Last Admin: 08/01/18 08:21 Dose: 0.5 mg Clonazepam (Klonopin) 0.5 mg PO BID [facility]; Protocol Last Admin: 08/01/18 09:25 Dose: 0.5 mg Fluconazole (Diflucan) 400 mg PO DAILY [facility]; Protocol Last Admin: 08/01/18 09:25 Dose: 400 mg Sodium Chloride (Sodium Chloride 0.9%) 1,000 mls @ 70 mls/hr IV .[id number] [facility] Last Admin: 08/01/18 13:40 Dose: Not Given Loratadine (Claritin) 10 mg PO DAILY [facility] Last Admin: 08/01/18 09:25 Dose: 10 mg Losartan Potassium (Cozaar) 50 mg PO QPM [facility] Magnesium Oxide (Mag-Ox) 400 mg PO BID [facility] Last Admin: 08/01/18 09:26 Dose: 400 mg Mirtazapine (Remeron) 15 mg PO HS [facility] Last Admin: 07/31/18 22:22 Dose: 15 mg Montelukast Sodium (Singulair) 10 mg PO DAILY [facility] Last Admin: 08/01/18 09:27 Dose: 10 mg Multivitamins/Minerals (Therapeutic-M Tab) 1 tab PO DAILY [facility] Last Admin: 08/01/18 09:28 Dose: 1 tab Nicotine (Nicoderm Cq) 1 patch TD DAILY [facility] Last Admin: 08/01/18 09:26 Dose: 1 patch Oxymetazoline HCl (Afrin 0.05%) 0 ml NS Q6H PRN PRN Reason: Sinus symptoms Pantoprazole Sodium (Protonix Ec Tab) 40 mg PO DAILY [facility] Last Admin: 08/01/18 09:27 Dose: 40 mg Sodium Chloride ([place]) 0 ml NS QID [facility] - Labs Labs: 08/01/18 06:45 08/01/18 06:45 PT 15.0 SECONDS (9.4-12.5) H 07/29/18 10:35 INR 1.33 07/29/18 10:35 APTT 27.1 Seconds (26.9-38.3) 07/29/18 10:35
--- NOTE | 2018-08-01 15:15 | PN ---
DATE: 08/01/2018 PULMONARY PROGRESS NOTE REFERRING PHYSICIAN: August Lara MD. SUBJECTIVE: The patient is seen, sitting up in bed, no acute distress. No overnight events reported. Still has some shortness of breath with exertion. Still has cough, but has improved. No headache, rhinitis, chest pain, abdominal pain, nausea, vomiting, diarrhea, leg pain or leg swelling reported. Nasal packing to left naris has been removed. OBJECTIVE: VITAL SIGNS: Blood pressure 136/70, pulse 80, temperature 98.6 and oxygen saturation 96% on nasal cannula. GENERAL: No acute distress. HEENT: Moist mucous membranes. Crowded airway. Mallampati score of 4. NECK: Supple. No JVD. RESPIRATORY: Few rhonchi bilaterally. CARDIOVASCULAR: S1 and S2. ABDOMEN: Soft and nontender. No distention. No organomegaly. EXTREMITIES: No bilateral lower extremity edema. NEUROLOGIC: Awake, alert and verbal. Follows commands. MEDICATIONS: Reviewed. Tylenol 650 mg every 6 hours p.r.n. fever greater than 100.4, Zovirax 200 mg five times a day, albuterol 2.5 mg inhalation every 6 hours p.r.n., Norvasc 10 mg daily, Brovana 15 mcg every 12 hours, atenolol 25 mg twice a day, Pulmicort 0.5 mg every 12 hours, Klonopin 0.5 mg twice a day, Diflucan 400 mg daily, Claritin 10 mg daily, Cozaar 50 mg in the evening, magnesium oxide 400 mg twice a day, Remeron 15 mg at bedtime, Singulair 10 mg daily, multivitamin one tab daily, nicotine patch transdermal daily, Protonix 40 mg daily, sodium chloride 1000 mL at 70 mL per hour, sodium chloride nasal spray 4 times a day. LABORATORY DATA: Reviewed. WBC 5.6, RBC 3.50, hemoglobin 10.3, hematocrit 32, and platelets 36. Sodium 142, potassium 4.5, chloride 108, carbon dioxide 31, anion gap 8, BUN 11, creatinine 0.6, GFR is greater than 60, random glucose 79, calcium 8.6, magnesium 2.0, total bilirubin 0.5, AST 22, ALT 37, alkaline phosphatase 106, total protein 5.8, albumin 2.9, globulin 2.8, albumin and globulin ration 1.0. Blood culture preliminary, no growth after 3 days. IMPRESSION AND PLAN: Epistaxis, thrombocytopenia, anemia, sickle cell anemia, asthma, chronic obstructive pulmonary disease, history of lung cancer, history of breast cancer and leukemia. Continue inhaled bronchodilators, gastric prophylaxis, continue antibiotic therapy per Infectious Disease. Continue leukotriene inhibitors. We will order nasal saline spray to both nostril as packing has been removed. We will ordered Afrin 3 sprays two nostrils with bleeding every 6 hours p.r.n. for nosebleed. Continue sequential compression devices to bilateral lower extremities for deep venous thrombosis prophylaxis as the patient cannot be on chemical prophylaxis due to anemia status. We recommend the patient have full pulmonary function test to assess chronic lung disease. The patient should also have sleep study done to rule out sleep apnea. Followup labs in the morning. This patient was seen and examined with Dr. Maurer. Discussed assessment and plan as described above. This patient was seen and examined with Henry Marquez, nurse practitioner. Discussed assessment and plan as described above. Thank you for this consult and we will follow with you. Henry Marquez APN Solange Maurer MD JONAH
--- NOTE | 2018-08-01 18:29 | PN ---
DATE: 07/31/2018 SUBJECTIVE: The patient is lying in the bed. She has no nosebleed now. She has no respiratory distress. Afebrile. Status post platelet transfusion, blood transfusions for bone marrow failure. PHYSICAL EXAMINATION: VITAL SIGNS: Temperature 98.3, heart rate 85, blood pressure 125/77, respirations 18 and saturating 96% on room air. HEAD AND NECK: Exam normal. No JVD. No thyromegaly. CHEST: Clear bilateral. CARDIAC: First sound, second sound normal. No murmur, rub, or gallop. ABDOMEN: Soft and nontender. EXTREMITIES: No edema. NEUROLOGIC: Normal. LABORATORY DATA: Her laboratory study shows white count 6.4, hemoglobin 10.6, hematocrit 32.4[place] [id number]. Her chemistries shows sodium 142, potassium 3.2, chloride 104, bicarb 33, BUN 18, creatinine 0.6. IMPRESSION AND PLAN: 1. Epistaxis, etiology secondary to may be low platelets, anyway the patient is stable now to remove off the balloon in her nostril and she is doing well. 2. Thrombocytopenia, anemia. 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 Dr. Lopez managing the oncology on the case. Continue followup on that, repeat hemoglobin is improving and seems stable. 3. Chronic obstructive pulmonary disease and hypertension, tobacco addiction, chronic back pain. general weakness. The patient was advised to go for physical therapy. She can use walker with walking, but she declined. I will discuss with the patient, the patient need to be oncologically and hematologically stable and be discharged. Otherwise, the patient has to be cleared by Oncology to go home. The patient is stable, continue the blood pressure meds ,and continue [place]oret[place] patch and will give the patient nebulizer treatment on discharge and right now she is stable. CURRENT MEDICATIONS: She is getting Afrin nasal spray, Brovana, Pulmicort, Claritin, Cozaar 50, Diflucan has been added and also the patient has been taking Diflucan for a year after I spoke to her. She does take it for a year and we will continue that and acyclovir also, p.o. prophylactic for infection. Continue Klonopin 0.5 mg b.i.d., magnesium oxide, Nicoderm CQ, Norvasc 10, [place] spray, Percocet, Protonix, mirtazapine 15 mg at bedtime, Singulair, Tenormin, multivitamins, and Tylenol. August Lara MD
[2018-08-02] MEDS: Oxycodone/Acetaminophen 5/325 mg Tab PO SCH ×5 (01:22→17:50)
[2018-08-02 06:59] LABS: BASO # 0.02 K/mm3 (0.0-2.0); BASO % 0.4 % (0.0-3.0); HEMOGLOBIN 9.5 g/dL (12.0-16.0); LYMPH # 2.1 (1.2-3.4); LYMPH % 46.6 % (22.0-35.0); MEAN CELL VOLUME 89.4 fl (80.0-105.0); MEAN CORPUSCULAR HEMOGLOBIN 29.6 pg (25.0-35.0); MEAN CORPUSCULAR HGB CONC 33.1 g/dl (31.0-37.0); MONO # 1.2 (0.1-0.6); MONO % 27.4 % (1.0-6.0); RBC 3.21 10^6/uL (3.5-6.1); RED CELL DISTRIBUTION WIDTH 15.1 % (11.5-14.5); WHITE BLOOD COUNT 4.5 10^3/uL (4.5-11.0)
[2018-08-02 07:09] LABS: ALB/GLOB RATIO 0.9 (1.1-1.8); ALBUMIN 2.6 g/dL (3.0-4.8); ALT/SGPT 24 U/L (7-56); AST/SGOT 18 U/L (14-36); BLOOD UREA NITROGEN 10 mg/dL (7-21); CALCIUM 8.4 mg/dL (8.4-10.5); GFR NON-AFRICAN AMERICAN > 60
[2018-08-02] MEDS: Arformoterol 15 mcg/2 ml Inh Sol IH SCH ×2 (07:32→19:29)
[2018-08-02] MEDS: Budesonide 0.5 mg/2 ml Inhal Susp UD IH SCH ×2 (07:32→19:29)
[2018-08-02 08:42] LABS: PLATELET COUNT 27 10^3/uL (120.0-450.0)
[2018-08-02 08:43] LABS: PLATELET COUNT MANUAL 32 K/mm3 (120-450)
[2018-08-02] MEDS: Magnesium Oxide 400 mg Tab UD PO SCH ×2 (09:23→17:50)
[2018-08-02] MEDS: Pantoprazole 40 mg EC Tab PO SCH (09:24)
[2018-08-02] MEDS: Sodium Chloride 0.9% 1,000 ML IV SCH (09:25)
[2018-08-02] MEDS: Multivitamin With Minerals Tab PO SCH (09:26)
--- NOTE | 2018-08-02 11:26 | PN ---
DATE: 08/02/2018 PULMONARY PROGRESS NOTE REFERRING PHYSICIAN: August Lara MD. SUBJECTIVE: The patient is seen sitting up in bed, daughter at bedside, no acute distress. No overnight events reported. The patient reports feeling well this morning. Cough and shortness of breath have improved. No headache, rhinitis, chest pain, abdominal pain, nausea, vomiting, diarrhea, leg pain or leg swelling reported. OBJECTIVE: GENERAL: No acute distress. VITAL SIGNS: Blood pressure 120/77, pulse 89, temperature 98. HEENT: Moist mucous membranes. Crowded airway. Mallampati score of 4. NECK: Supple. No JVD. RESPIRATORY: Fair airflow bilaterally. Few scattered rhonchi. CARDIOVASCULAR: S1, S2. ABDOMEN: Soft, nontender. No distention. No organomegaly. EXTREMITIES: No bilateral lower extremity edema. NEUROLOGIC: Awake, alert, verbal. Follows commands. MEDICATIONS: Reviewed. Tylenol 650 every 6 hours p.r.n. fever greater than 100.4, Zovirax 200 mg five times a day, albuterol 2.5 mg inhalation every 6 hours p.r.n., Norvasc 10 mg daily, Brovana 15 mcg every 12 hours, atenolol 25 mg twice a day, Pulmicort 0.5 mg every 12 hours, Klonopin 0.5 mg twice a day, Diflucan 400 mg daily, Claritin 10 mg daily, Cozaar 50 mg in the evening, magnesium oxide 400 mg twice a day, Remeron 15 mg at bedtime, Singulair 10 mg daily, multivitamin with minerals one tab daily, nicotine patch transdermal daily, Percocet 5/325 mg every 6 hours, Afrin nasal spray every 6 hours p.r.n., Protonix 40 mg daily, sodium chloride 0.9% 1000 mL at 70 mL per hour, [place] nasal spray four times a day. LABORATORY DATA: Reviewed. WBC 4.5, RBC 3.21, hemoglobin 9.5, hematocrit 28.7, platelets 27. Sodium 142, potassium 4, chloride 105, carbon dioxide 31, anion gap 9, BUN 10, creatinine 0.5, GFR is greater than 60, random glucose 85, calcium 8.4, total bilirubin 0.6. AST 18, ALT 24, alkaline phosphatase 96, total protein 5.5, albumin 2.6, globulin 2.9, albumin globulin ratio 0.9. Blood culture preliminary, no growth after three days. IMPRESSION AND PLAN: Epistaxis, thrombocytopenia, anemia, sickle cell anemia, asthma, chronic obstructive pulmonary disease, history of lung cancer, history of breast cancer, leukemia, history of myelodysplastic syndrome, history of endocarditis, neutropenia. Pulmonary point of view, continue inhaled bronchodilators, gastric prophylaxis, leukotriene inhibitors. Continue nasal spray to both nostrils, continue Afrin as needed for nosebleed. Continue sequential compression devices to bilateral lower extremities for deep venous thrombosis prophylaxis. The patient cannot be on chemical prophylaxis due to anemia status. Fall precaution. Aspiration precaution. From pulmonary point of view, the patient is stable at this time. We recommend the patient have full pulmonary function test as outpatient to assess chronic lung disease. Recommend the patient have sleep study as outpatient to rule out sleep apnea. Continue Hematology-Oncology consults. This patient was seen and examined with Dr. Maurer. Discussed assessment and plan as described above. This patient was seen and examined with Henry Marquez, nurse practitioner. Discussed assessment and plan as described above. Thank you for this consult. We will follow with you. Henry Marquez APN Solange Maurer MD
--- NOTE | 2018-08-02 14:22 | PN ---
DATE: 08/01/2018 SUBJECTIVE: The patient is seen on 08/01/2018. The patient is comfortable. No distress. She has no other complaints. No bleeding and she is stable. PHYSICAL EXAMINATION: VITAL SIGNS: Temperature 98, heart rate 89, blood pressure 120/77 and respirations 20. HEENT: Head and neck exam normal. No JVD. No thyromegaly. CHEST: Clear bilateral. CARDIAC: First sound and second sound normal. ABDOMEN: Soft and nontender. EXTREMITIES: No edema. NEUROLOGIC: Normal. LABORATORY DATA: White count 5.6, hemoglobin 10.3, hematocrit 32 and platelets 36. The patient's chemistry shows sodium 142, potassium 4.5, chloride 108, bicarb 31, BUN 11 and creatinine 0.6. Liver function test is normal. The patient had blood cultures x2, is negative. Urine culture is negative. IMPRESSION: 1. Thrombocytopenia, secondary to leukemia. Spoke with Dr. Lopez, is okay to discharge tomorrow. 2. Chronic obstructive pulmonary disease. The patient is on inhalers. I gave the prescription for nebulizer machine with tubing and medication albuterol for nebulizers plus I gave the patient tobacco patches with refills. 3. Chronic anxiety. The patient advised to continue Klonopin. 4. Hypertension. Continue Cozaar 50 mg, Norvasc 10 and she is also getting atenolol 25 mg b.i.d. 5. Leukemia. The patient will be seen as outpatient on Monday I think with Dr. Lopez for evaluation. Repeat labs and possible chemo transfusion if needed. 6. Nose bleed, left side has stopped, seen by ENT. She was on Afrin p.r.n., she does not need it anymore, she is stable. PLAN: Discharge the patient. Discharge medications, she will be on albuterol nebulizers, Claritin, Cozaar 50 mg, Diflucan and acyclovir will continue and may need to be evaluated later if needed whether to continue or not, Klonopin 0.5 mg b.i.d., magnesium oxide, nicotine patch, Norvasc 10, [place] nasal spray, Percocet, Protonix, Remeron, Singulair, Tenormin, multivitamin and Tylenol. August Lara MD
--- NOTE | 2018-08-02 15:03 | CP.PCM.PN ---
Subjective - Date & Time of Evaluation Date of Evaluation: 08/02/18 Time of Evaluation: 15:02 - Subjective Subjective: Nephrology Consultation Note: Assessment: stable Hypokalemia ? etiology also withh metabolic alkalosis. r/o hyperaldo state Hypomagnesemia sickel cell anemia, Breast and lung CA, MDS ? leukemia, COPD CHF with LVEF 45% and hypertension (recent) anemia of acute blood loss, epistaxis and thrombocytopenia Plan No acute need for renal replacement therapy at this time. Hypertension control with meds as ordered. Maintain hemodynamics stable. Avoid hypotension. increased losartan 50 mg/d Monitor Input/Output, daily weights and renal function with basic metabolic panel consider to d/c IVF in view of CHF and pleural effusion supplement lytes as needed heme, ENT, ID, pulmonary following Check urine analysis, Na/Cr/Osmol/K and Cl work up with plasma renin/aldosterone Dose meds/antibiotics for GFR >60 Glycemic control Further work up/management as per primary team Thanks for allowing me to participate in care of your patient. Will follow patient with you. Please call if any Qs Dr Johnny Angel Office: [phone] Chief Complaint; bleeding from nose Reason for consult: Hypokalemia HPI: Pt is a 53 F with hx of sickel cell anemia, Breast and lung CA, MDS ? leukemia, COPD CHF with LVEF 45% and hypertension (recent) presented with com plaints of epistasix with low plat count, anemia of acute blood loss. renal consult for low K Denies OTC/herbal meds or NSAIDs No recent iodinated contrast exposure. No obvious episodes of low BP. she feels better. has decreased appetite but oral intake better ROS: Cardiovascular: No chest pain. Pulmonary: No shortness of breath at rest Gastrointestinal: denies abdominal pain No nausea. No vomiting. Genitourinary: No pain while urinating. Denies blood in urine. All other negative except as mentioned in HPI. Physical Examination: General Appearance: Comfortable, in no acute respiratory distress, co-operative . ill appearing Vitals reviewed and noted as below Head; Atraumatic, normocephalic ENT: no ulcers no thrush. Tongue is midline. Oropharynx: no rash or ulcers. nasal packing removed EYES: Pupils are equal, round and reactive to light accommodation. Eye muscles and extra-ocular movement intact. Sclera is anicteric. Neck; supple no lymphadenopathy, no thyromegaly or bruit Lungs: Normal respiratory rate/effort. Breath sounds bilateral reduced at bases with crackles Heart: Normal rate. s1s2 normal. No rub or gallop. Extremities: trace edema. No varicose veins Neurological: Patient is alert, awake and oriented to person, place and time. No focal deficit. Strength bilateral appropriate and equal Skin: Warm and dry. Normal turgor. No rash. Palpitation: Normal elasticity for age Abdomen: Abdomen is soft. Bowel sounds +. There is no abdominal tenderness, no guarding/rigidity no organomegaly Psych: normal insight and normal affect/mood MSK: no joint tenderness or swelling. Digits and nails normal, no deformity : kidney or bladder not palpable Labs/imaging reviewed. Past medical history, past surgical history, family history, social history, allergy reviewed and noted as below Family hx: no hx of CKD. Rest non-contributory CT adrenal wnl LVEF 45% CXR pulm cogestion and pleural effusion Objective - Vital Signs/Intake and Output Vital Signs (last 24 hours): Temp Pulse Resp BP Pulse Ox 98 F 91 H 19 140/70 96 08/01/18 17:57 08/01/18 18:00 08/01/18 17:57 08/02/18 09:23 08/01/18 05:59 Intake and Output: 08/02/18 08/02/18 06:59 18:59 Intake Total 1260 Output Total 2420 Balance -1160 - Medications Medications: Current Medications Acetaminophen (Tylenol 325mg Tab) 650 mg PO Q6H PRN PRN Reason: Fever >100.4 F Acyclovir (Zovirax) 200 mg PO 5XD [facility]; Protocol Last Admin: 08/02/18 09:26 Dose: 200 mg Albuterol Sulfate (Albuterol 0.083% Inhal Raysa (2.5 Mg/3 Ml) Ud) 2.5 mg IH [id number] PRN PRN Reason: Cough and congestion Amlodipine Besylate (Norvasc) 10 mg PO DAILY [facility] Last Admin: 08/02/18 09:23 Dose: 10 mg Arformoterol Tartrate (Brovana) 15 mcg IH [id number] [facility] Last Admin: 08/02/18 07:32 Dose: 15 mcg Atenolol (Tenormin) 25 mg PO BID [facility] Last Admin: 08/02/18 09:25 Dose: 25 mg Budesonide (Pulmicort Respules) 0.5 mg IH [id number] [facility] Last Admin: 08/02/18 07:32 Dose: 0.5 mg Clonazepam (Klonopin) 0.5 mg PO BID [facility]; Protocol Last Admin: 08/02/18 09:23 Dose: 0.5 mg Fluconazole (Diflucan) 400 mg PO DAILY [facility]; Protocol Last Admin: 08/02/18 09:22 Dose: 400 mg Loratadine (Claritin) 10 mg PO DAILY [facility] Last Admin: 08/02/18 09:22 Dose: 10 mg Losartan Potassium (Cozaar) 50 mg PO QPM [facility] Last Admin: 08/01/18 17:39 Dose: 50 mg Magnesium Oxide (Mag-Ox) 400 mg PO BID [facility] Last Admin: 08/02/18 09:23 Dose: 400 mg Mirtazapine (Remeron) 15 mg PO HS [facility] Last Admin: 08/01/18 21:20 Dose: 15 mg Montelukast Sodium (Singulair) 10 mg PO DAILY [facility] Last Admin: 08/02/18 09:24 Dose: 10 mg Multivitamins/Minerals (Therapeutic-M Tab) 1 tab PO DAILY [facility] Last Admin: 08/02/18 09:26 Dose: 1 tab Nicotine (Nicoderm Cq) 1 patch TD DAILY [facility] Last Admin: 08/02/18 09:23 Dose: 1 patch Oxycodone/Acetaminophen (Percocet 5/325 Mg Tab) 1 tab PO Q6H [facility] Stop: 08/04/18 18:01 Last Admin: 08/02/18 12:34 Dose: 1 tab Oxymetazoline HCl (Afrin 0.05%) 0 ml NS Q6H PRN PRN Reason: Sinus symptoms Pantoprazole Sodium (Protonix Ec Tab) 40 mg PO DAILY [facility] Last Admin: 08/02/18 09:24 Dose: 40 mg - Labs Labs: 08/02/18 06:15 08/02/18 06:15 PT 15.0 SECONDS (9.4-12.5) H 07/29/18 10:35 INR 1.33 07/29/18 10:35 APTT 27.1 Seconds (26.9-38.3) 07/29/18 10:35
--- NOTE | 2018-08-02 15:45 | PN ---
DATE: 08/02/2018 SUBJECTIVE: The patient is in bed in no acute distress, nontoxic, was seen earlier today in 271, bed 1. No fevers and chills. PHYSICAL EXAMINATION VITAL SIGNS: On exam, temperature is 98, blood pressure is 120/70 and respiratory rate of 18. HEENT: Unremarkable. NECK: Supple. LUNGS: Have decreased breath sounds. HEART: Normal S1 and S2. ABDOMEN: Soft and nontender. LABORATORY EXAMINATION: Reveals a white count of 4.5 and platelets of 32,000 and chemistries are noted. Urinalysis is noted and the patient is off of antibiotics. ASSESSMENT AND PLAN: He is a 53-year-old female with history of myelodysplastic syndrome, lung cancer, chemotherapy, chronic for lung disease, sickle cell disease, history of endocarditis, acute kidney injury hospitalized with septic shock, neutropenia, treated with antibiotics, currently now off of antibiotics. The patient is at risk for developing nosocomial infections. Dr. Solange Maurer's and Henry Marquez's note is reviewed. The patient with epistaxis, thrombocytopenia, sickle cell, asthma, chronic obstructive lung disease and the patient is at risk for developing nosocomial infections. Terrance Juan MD
--- NOTE | 2018-08-02 19:33 | PN ---
DATE: 08/02/2018 This is [facility] visit on the telemetry floor. For Dr. Lopez. SUBJECTIVE: The patient is a 53-year-old female, seen lying awake in bed with family at the bedside. 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 The patient is also transfused freeze platelets 1 bag and then 2 units of packed red blood cells for severe anemic indices noted the next day. On admission, her hemoglobin was noted to be 10.8. On the following day it was 6.5. Her platelet count was 13,000 on admission, the following day after 1 bag of single donor freeze platelets it was 63 with a manual count of 87. She was then transfused 2 units of packed red blood cells. Her hemoglobin today is at 9.5 with her platelet count of 27,000, manual count 32,000 with no active bleeding at this time. PHYSICAL EXAMINATION VITAL SIGNS: Temperature 98, pulse 91, respirations 19, blood pressure 140/70, pulse ox of 96%. It should be noted that the patient was seen by Ear, Nose, and Throat consultants Dr. Cook, Dr. Morley, and Dr. Hayden with a nasal packing of a Rhino Rocket with followup improved. HEENT: Unremarkable. NECK: Supple. HEART: Regular rate. LUNGS: Clear. ABDOMEN: Soft and nontender. EXTREMITIES: No edema. SKIN: Warm and dry. NEUROLOGIC: Awake and alert. LABORATORY DATA: The patient's labs were done. White blood cell count of 4.5, hemoglobin 9.5, hematocrit 28.7, platelet count of 27,000 with a manual count of 32,000 with no active bleeding. ASSESSMENT: For this patient is that of severe thrombocytopenia, severe anemia of accelerated myelodysplastic syndrome, sickle cell disease, epistaxis, history of breast cancer, history of lung cancer, smoker, emphysema, and chronic obstructive pulmonary disease. PLAN: For this patient is to continue present medical regimen, with consideration for a repeat bone marrow biopsy as an outpatient as indicated as she reports she may be going today with followup in the office within [address] Lopez with continuation of her treatment as indicated as per Dr. Lopez's protocols. This is a complex patient with a comprehensive medically necessary and appropriate visit carried out in excess of 25 minutes with the patient and her family members questions answered to their satisfaction. Clint Mcduffie MD
[2018-08-03] MEDS: Oxycodone/Acetaminophen 5/325 mg Tab PO SCH ×2 (00:01→05:47)
[2018-08-03 06:04] LABS: BASO # 0.02 K/mm3 (0.0-2.0); BASO % 0.5 % (0.0-3.0); HEMOGLOBIN 9.8 g/dL (12.0-16.0); LYMPH # 2.1 (1.2-3.4); LYMPH % 48.9 % (22.0-35.0); MEAN CELL VOLUME 89.8 fl (80.0-105.0); MEAN CORPUSCULAR HEMOGLOBIN 29.4 pg (25.0-35.0); MEAN CORPUSCULAR HGB CONC 32.8 g/dl (31.0-37.0); MONO # 1.1 (0.1-0.6); MONO % 26.2 % (1.0-6.0); RBC 3.33 10^6/uL (3.5-6.1); RED CELL DISTRIBUTION WIDTH 14.7 % (11.5-14.5); WHITE BLOOD COUNT 4.2 10^3/uL (4.5-11.0)
[2018-08-03 06:13] LABS: PLATELET COUNT 21 10^3/uL (120.0-450.0)
--- NOTE | 2018-08-03 06:58 | CP.PCM.PN ---
Subjective - Date & Time of Evaluation Date of Evaluation: 08/03/18 Time of Evaluation: 07:30 - Subjective Subjective: Leonidas Pardo PGY2 - Heme/Onc Progress Note Patient seen and examined at bedside. Patient continues to report nausea and vomiting. She endorses that she is always nauseous. She reports feeling fatigued and weak. She is given the results of her blood tests and is instructed to follow up outpatient with Dr. Lopez in the oncological infusion clinic if she is discharged today or over the weekend. Objective - Vital Signs/Intake and Output Vital Signs (last 24 hours): Temp Pulse Resp BP Pulse Ox 97 F L 86 20 124/74 96 08/03/18 06:00 08/03/18 06:00 08/03/18 06:00 08/03/18 06:00 08/01/18 05:59 Intake and Output: 08/02/18 08/03/18 18:59 06:59 Intake Total 720 240 Output Total 1700 1480 Balance -980 -1240 - Medications Medications: Current Medications Acetaminophen (Tylenol 325mg Tab) 650 mg PO Q6H PRN PRN Reason: Fever >100.4 F Acyclovir (Zovirax) 200 mg PO 5XD [facility]; Protocol Last Admin: 08/03/18 05:47 Dose: 200 mg Albuterol Sulfate (Albuterol 0.083% Inhal Raysa (2.5 Mg/3 Ml) Ud) 2.5 mg IH [id number] PRN PRN Reason: Cough and congestion Amlodipine Besylate (Norvasc) 10 mg PO DAILY [facility] Last Admin: 08/02/18 09:23 Dose: 10 mg Arformoterol Tartrate (Brovana) 15 mcg IH [id number] [facility] Last Admin: 08/02/18 19:29 Dose: 15 mcg Atenolol (Tenormin) 25 mg PO BID [facility] Last Admin: 08/02/18 17:51 Dose: 25 mg Budesonide (Pulmicort Respules) 0.5 mg IH [id number] [facility] Last Admin: 08/02/18 19:29 Dose: 0.5 mg Clonazepam (Klonopin) 0.5 mg PO BID [facility]; Protocol Last Admin: 08/02/18 17:49 Dose: 0.5 mg Fluconazole (Diflucan) 400 mg PO DAILY [facility]; Protocol Last Admin: 08/02/18 09:22 Dose: 400 mg Loratadine (Claritin) 10 mg PO DAILY [facility] Last Admin: 08/02/18 09:22 Dose: 10 mg Losartan Potassium (Cozaar) 50 mg PO QPM [facility] Last Admin: 08/02/18 17:49 Dose: 50 mg Magnesium Oxide (Mag-Ox) 400 mg PO BID [facility] Last Admin: 08/02/18 17:50 Dose: 400 mg Mirtazapine (Remeron) 15 mg PO HS [facility] Last Admin: 08/02/18 22:09 Dose: 15 mg Montelukast Sodium (Singulair) 10 mg PO DAILY [facility] Last Admin: 08/02/18 09:24 Dose: 10 mg Multivitamins/Minerals (Therapeutic-M Tab) 1 tab PO DAILY [facility] Last Admin: 08/02/18 09:26 Dose: 1 tab Nicotine (Nicoderm Cq) 1 patch TD DAILY [facility] Last Admin: 08/02/18 09:23 Dose: 1 patch Oxycodone/Acetaminophen (Percocet 5/325 Mg Tab) 1 tab PO Q6H [facility] Stop: 08/04/18 18:01 Last Admin: 08/03/18 05:47 Dose: 1 tab Oxymetazoline HCl (Afrin 0.05%) 0 ml NS Q6H PRN PRN Reason: Sinus symptoms Pantoprazole Sodium (Protonix Ec Tab) 40 mg PO DAILY [facility] Last Admin: 08/02/18 09:24 Dose: 40 mg - Labs Labs: 08/03/18 06:00 08/02/18 06:15 PT 15.0 SECONDS (9.4-12.5) H 07/29/18 10:35 INR 1.33 07/29/18 10:35 APTT 27.1 Seconds (26.9-38.3) 07/29/18 10:35 - Constitutional Appears: No Acute Distress, Older Than Stated Age, Chronically Ill - Head Exam Head Exam: ATRAUMATIC, NORMOCEPHALIC - Eye Exam Eye Exam: EOMI, PERRL - ENT Exam ENT Exam: Mucous Membranes Moist - Neck Exam Neck Exam: Full ROM - Respiratory Exam Respiratory Exam: Clear to Ausculation Bilateral, NORMAL BREATHING PATTERN - Cardiovascular Exam Cardiovascular Exam: REGULAR RHYTHM, +S1, +S2 - GI/Abdominal Exam GI & Abdominal Exam: Soft, Normal Bowel Sounds. absent: Guarding, Tenderness - Extremities Exam Extremities Exam: Full ROM. absent: Pedal Edema Additional comments: stalkings in place bilaterally - Neurological Exam Neurological Exam: Alert, Awake, Oriented x3 Additional comments: motor and sensory grossly intact - Psychiatric Exam Psychiatric exam: Depressed - Skin Skin Exam: Dry, Warm Assessment and Plan - Assessment and Plan (Free Text) Assessment: 53-year old female with accelerated MDS s/p chemotherapy, immunosuppression, lung cancer s/p lobectomy, R breast mastectomy, COPD, endocarditis who presented to [facility] for epistaxis for one hour. Patient is s/p rhino nasal packaging for 48 hours. Patient continues to be monitored on floor for fatigue, weakness, and thrombocytopenia, leukopenia, and anemia. Plan: Accelerated MDS Thrombocytopenia Anemia Epistaxis - resolved - Accelerated MDS previously on cyclical therapy with cytaratine currently on hold secondary to previous hospital admission for PNA and acute drops in blood counts - Continue patient inhaled steroids and bronchodilators - Continue to consider bone marrow examination for assessment of progression/status of MDS - Continue blood transfusions on an every other week schedule outpatient - Hemoglobin stable today, has trended downward - Platelet count is 21, continue to monitor - Discussed with patient possibility of discharge today or over the weekend with planned follow up in clinic on Monday for re-check of her CBC and potential for platelet transfusion with a decision to be made at that time for further treatment plan for her accelerated MDS - It is recommendation of heme/onc team for discharge as patient is as stable from hematology/oncology stand point but that there is importance for acute follow up to re-check blood levels - Discussion with patient and family at bedside regarding recommendations and plan of care - DVT/GI ppx - Further recommendations as per Dr. Lopez
[2018-08-03 06:59] LABS: ALB/GLOB RATIO 0.9 (1.1-1.8); ALBUMIN 2.8 g/dL (3.0-4.8); ALT/SGPT 23 U/L (7-56); AST/SGOT 23 U/L (14-36); BLOOD UREA NITROGEN 14 mg/dL (7-21); CALCIUM 8.7 mg/dL (8.4-10.5); GFR NON-AFRICAN AMERICAN > 60
[2018-08-03 07:05] LABS: PLATELET COUNT MANUAL 17 K/mm3 (120-450)
[2018-08-03] MEDS: Arformoterol 15 mcg/2 ml Inh Sol IH SCH (07:40)
[2018-08-03] MEDS: Budesonide 0.5 mg/2 ml Inhal Susp UD IH SCH (07:40)
[2018-08-03] MEDS: Magnesium Oxide 400 mg Tab UD PO SCH (09:54)
[2018-08-03] MEDS: Multivitamin With Minerals Tab PO SCH (09:54)
[2018-08-03] MEDS: Pantoprazole 40 mg EC Tab PO SCH (09:55)
--- NOTE | 2018-08-03 10:34 | PN ---
DATE: 08/02/2018 SUBJECTIVE: The patient is comfortable, wants to go home. I spoke with the Oncology, platelet is low, advised to keep the patient till morning and repeat platelet counts. PHYSICAL EXAMINATION VITAL SIGNS: Temperature 98.7, heart rate 88, blood pressure 122/74, and respiration 20. HEAD AND NECK: Normal. No JVD. No thyromegaly. CHEST: Clear bilaterally. CARDIAC: First sound and second sound normal. ABDOMEN: Soft and nontender. EXTREMITIES: No edema. NEUROLOGIC: Normal. LABORATORY DATA: White count 4.5, hemoglobin 9.5, hematocrit 28.7, and platelet is 27 and on manual 32. Chemistry; sodium 142, potassium 4, chloride 105, bicarb 31, BUN 10, and creatinine 0.5. Liver function test is normal. Also blood culture and urine culture came back negative. IMPRESSION AND PLAN 1. 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 The patient needs chemotherapy to be started next week as I spoke with Dr. Lopez and would continue current treatment. Repeat CBC in the morning. 2. Major nose bleed, stable now. 3. Chronic obstructive pulmonary disease. Continue inhalers as the patient receives nebulizer machine, albuterol and advised to continue her mobilization as outpatient plus we have given Nicoderm patch. 4. The patient has chronic anxiety due to multiple medical problems. Continue Klonopin and she seems doing okay. The patient also has chronic immunosuppressive therapy for infections. She is on Diflucan and Xopenex. I spoke with the Infectious Disease, Dr. Juan and with Dr. Lopez's group. 5. Hypertension, stable. Continue Tenormin 25 mg daily, Norvasc 10 mg daily, and Cozaar 50 mg daily. 6. General weakness. The patient refused rehabilitation. Risk of falls explained. The patient is advised to be careful with ambulating and use a mask for prevention of infections. Continue current therapy. The patient also has Afrin, which was given p.r.n. for any nosebleed. Continue nebulizer, Claritin 10 mg, Cozaar 50 mg, Diflucan, Klonopin, magnesium oxide, Nicoderm, Norvasc, Percocet, Protonix 40 mg, Remeron, Singulair, Tenormin, multivitamin, Tylenol p.r.n., and Lovenox. The patient have all prescriptions ready. She does have refills on acyclovir and Diflucan, advised to continue and continue inhaled bronchodilator, blood pressure medicine and medication for anxiety including Remeron 15 mg at bedtime. Follow up with Dr. Lopez. We will repeat CBC in the morning. I discussed with the patient about her risk of her condition get worse and the Code status including and intubation. The family will think about it and the daughter also was there next to the patient and they would think about it and they would try to make a decision on this. August Lara MD
--- NOTE | 2018-08-03 11:05 | PN ---
DATE: 08/03/2018 PULMONARY PROGRESS NOTE REFERRING PHYSICIAN: August Lara MD SUBJECTIVE: The patient is seen sitting up in bed. No acute distress. No overnight events reported. The patient reports feeling well this morning, a little tired, cough and shortness of breath improved. No headache, rhinitis, chest pain, abdominal pain, nausea, vomiting, diarrhea, leg pain or leg swelling reported. The patient waiting to be transfused one unit of platelets. OBJECTIVE: GENERAL: No acute distress. VITAL SIGNS: Blood pressure 119/70, pulse 87 and temperature 97. HEENT: Moist mucous membranes. Crowded airway. Mallampati score of 4. NECK: Supple. No JVD. RESPIRATORY: Few scattered rhonchi. CARDIOVASCULAR: S1 and S2. ABDOMEN: Soft and nontender. No distention. No organomegaly. EXTREMITIES: No bilateral lower extremity edema. NEUROLOGIC: Awake, alert and verbal. Follows commands. MEDICATIONS: Reviewed. Tylenol 650 mg every 6 hours p.r.n. fever greater than 100.4, Tylenol 650 mg one time dose, Zovirax 200 mg five times a day, albuterol 2.5 mg inhalation every 6 hours p.r.n., Norvasc 10 mg daily, Brovana 15 mcg every 12 hours, atenolol 25 mg twice a day, Pulmicort 0.5 mg inhalation every 12 hours, Klonopin 0.5 mg twice a day, Diflucan 400 mg daily, Claritin 10 mg daily, Cozaar 50 mg daily, magnesium oxide 400 mg twice a day, Remeron 15 mg at bedtime, Singulair 10 mg daily, multivitamin with minerals one tab daily, nicotine patch transdermal daily, Percocet 5/325 mg one tab every 6 hours, Afrin nasal spray every 6 hours p.r.n. and Protonix 40 mg daily. LABORATORY DATA: Reviewed. WBC 4.2, RBC 3.33, hemoglobin 9.8, hematocrit 29.9 and platelets 21. Sodium 140, potassium 4.1, chloride 101, carbon dioxide 25, anion gap 8, BUN 14, creatinine 0.7, GFR is greater than 60, random glucose 95, calcium 8.7, total bilirubin 0.5, AST 23, ALT 23, alkaline phosphatase 114, total protein 5.9, albumin 2.8, globulin 3.1 and albumin-globulin ratio 0.9. Blood culture preliminary, no growth after 4 days. IMPRESSION AND PLAN: Epistaxis, thrombocytopenia, sickle cell anemia, asthma, chronic obstructive pulmonary disease, history of lung cancer, history of breast cancer, leukemia, history of myelodysplastic syndrome, history of endocarditis, neutropenia. Pulmonary point of view, continue inhaled bronchodilators, leukotriene inhibitors, gastric prophylaxis. Continue nasal spray and p.r.n. Afrin, pulmonary toileting. Continue sequential compression devices to bilateral lower extremities for deep venous thrombosis prophylaxis. Out of bed to chair. Hematology-Oncology followup. We recommended the patient have full pulmonary function test and sleep study as outpatient. This patient was seen and examined with Dr. Maurer. Discussed assessment and plan as described above. This patient was seen and examined with Henry Marquez, nurse practitioner. Discussed assessment and plan as described above. Thank you for this consult and we will follow with you. Henry Marquez APN Solange Maurer MD
[2018-08-03] MEDS ORDERED: Alum-Mag Hydrox-Simethicone Susp (30 mL) PO ONE (11:31)
--- NOTE | 2018-08-03 11:43 | CP.PCM.PN ---
Subjective - Date & Time of Evaluation Date of Evaluation: 08/03/18 Time of Evaluation: 11:42 - Subjective Subjective: Nephrology Consultation Note: Assessment: stable Hypokalemia ? etiology also withh metabolic alkalosis. r/o hyperaldo state Hypomagnesemia sickel cell anemia, Breast and lung CA, MDS ? leukemia, COPD CHF with LVEF 45% and hypertension (recent) anemia of acute blood loss, epistaxis and thrombocytopenia Plan No acute need for renal replacement therapy at this time. Hypertension control with meds as ordered. Maintain hemodynamics stable. Avoid hypotension. increased losartan 50 mg/d Monitor Input/Output, daily weights and renal function with basic metabolic panel can give lasix if needed in view of CHF and pleural effusion supplement lytes as needed heme, ENT, ID, pulmonary following Check urine analysis, Na/Cr/Osmol/K and Cl work up with plasma renin/aldosterone Dose meds/antibiotics for GFR >60 Glycemic control Further work up/management as per primary team Thanks for allowing me to participate in care of your patient. Will follow patient with you. Please call if any Qs Dr Johnny Angel Office: [phone] Chief Complaint; bleeding from nose Reason for consult: Hypokalemia HPI: Pt is a 53 F with hx of sickel cell anemia, Breast and lung CA, MDS ? leukemia, COPD CHF with LVEF 45% and hypertension (recent) presented with complaints of epistasix with low plat count, anemia of acute blood loss. renal consult for low K Denies OTC/herbal meds or NSAIDs No recent iodinated contrast exposure. No obvious episodes of low BP. she feels better. has decreased appetite but oral intake better ROS: Cardiovascular: No chest pain. Pulmonary: No shortness of breath at rest Gastrointestinal: denies abdominal pain No nausea. No vomiting. Genitourinary: No pain while urinating. Denies blood in urine. All other negative except as mentioned in HPI. Physical Examination: General Appearance: Comfortable, in no acute respiratory distress, co-operative . ill appearing Vitals reviewed and noted as below Head; Atraumatic, normocephalic ENT: no ulcers no thrush. Tongue is midline. Oropharynx: no rash or ulcers. nasa l packing removed EYES: Pupils are equal, round and reactive to light accommodation. Eye muscles and extra-ocular movement intact. Sclera is anicteric. Neck; supple no lymphadenopathy, no thyromegaly or bruit Lungs: Normal respiratory rate/effort. Breath sounds bilateral reduced at bases with crackles Heart: Normal rate. s1s2 normal. No rub or gallop. Extremities: no edema. No varicose veins Neurological: Patient is alert, awake and oriented to person, place and time. No focal deficit. Strength bilateral appropriate and equal Skin: Warm and dry. Normal turgor. No rash. Palpitation: Normal elasticity for age Abdomen: Abdomen is soft. Bowel sounds +. There is no abdominal tenderness, no g uarding/rigidity no organomegaly Psych: normal insight and normal affect/mood MSK: no joint tenderness or swelling. Digits and nails normal, no deformity : kidney or bladder not palpable Labs/imaging reviewed. Past medical history, past surgical history, family history, social history, allergy reviewed and noted as below Family hx: no hx of CKD. Rest non-contributory CT adrenal wnl LVEF 45% CXR pulm cogestion and pleural effusion Objective - Vital Signs/Intake and Output Vital Signs (last 24 hours): Temp Pulse Resp BP Pulse Ox 97 F L 87 20 119/70 96 08/03/18 06:00 08/03/18 09:55 08/03/18 06:00 08/03/18 09:55 08/01/18 05:59 Intake and Output: 08/03/18 08/03/18 06:59 18:59 Intake Total 240 Output Total 1480 Balance -1240 - Medications Medications: Current Medications Acetaminophen (Tylenol 325mg Tab) 650 mg PO Q6H PRN PRN Reason: Fever >100.4 F Acyclovir (Zovirax) 200 mg PO 5XD [facility]; Protocol Last Admin: 08/03/18 09:54 Dose: 200 mg Albuterol Sulfate (Albuterol 0.083% Inhal Raysa (2.5 Mg/3 Ml) Ud) 2.5 mg IH [id number] PRN PRN Reason: Cough and congestion Amlodipine Besylate (Norvasc) 10 mg PO DAILY [facility] Last Admin: 08/03/18 09:55 Dose: 10 mg Arformoterol Tartrate (Brovana) 15 mcg IH [id number] [facility] Last Admin: 08/03/18 07:40 Dose: 15 mcg Atenolol (Tenormin) 25 mg PO BID [facility] Last Admin: 08/03/18 09:55 Dose: 25 mg Budesonide (Pulmicort Respules) 0.5 mg IH [id number] [facility] Last Admin: 08/03/18 07:40 Dose: 0.5 mg Clonazepam (Klonopin) 0.5 mg PO BID [facility]; Protocol Last Admin: 08/03/18 09:55 Dose: 0.5 mg Fluconazole (Diflucan) 400 mg PO DAILY [facility]; Protocol Last Admin: 08/03/18 09:53 Dose: 400 mg Loratadine (Claritin) 10 mg PO DAILY [facility] Last Admin: 08/03/18 09:56 Dose: 10 mg Losartan Potassium (Cozaar) 50 mg PO QPM [facility] Last Admin: 08/02/18 17:49 Dose: 50 mg Magnesium Oxide (Mag-Ox) 400 mg PO BID [facility] Last Admin: 08/03/18 09:54 Dose: 400 mg Mirtazapine (Remeron) 15 mg PO HS [facility] Last Admin: 08/02/18 22:09 Dose: 15 mg Montelukast Sodium (Singulair) 10 mg PO DAILY [facility] Last Admin: 08/03/18 09:55 Dose: 10 mg Multivitamins/Minerals (Therapeutic-M Tab) 1 tab PO DAILY [facility] Last Admin: 08/03/18 09:54 Dose: 1 tab Nicotine (Nicoderm Cq) 1 patch TD DAILY [facility] Last Admin: 08/03/18 09:56 Dose: 1 patch Oxycodone/Acetaminophen (Percocet 5/325 Mg Tab) 1 tab PO Q6H [facility] Stop: 08/04/18 18:01 Last Admin: 08/03/18 05:47 Dose: 1 tab Oxymetazoline HCl (Afrin 0.05%) 0 ml NS Q6H PRN PRN Reason: Sinus symptoms Pantoprazole Sodium (Protonix Ec Tab) 40 mg PO DAILY [facility] Last Admin: 08/03/18 09:55 Dose: 40 mg - Labs Labs: 08/03/18 06:00 08/03/18 06:00 PT 15.0 SECONDS (9.4-12.5) H 07/29/18 10:35 INR 1.33 07/29/18 10:35 APTT 27.1 Seconds (26.9-38.3) 07/29/18 10:35
--- NOTE | 2018-08-03 13:28 | PN ---
DATE: 08/03/2018 SUBJECTIVE: The patient is seen early this morning, comfortable in room 271 bed 2. No fevers and no chills. PHYSICAL EXAMINATION: VITAL SIGNS: Temperature is 98, blood pressure is 120/70, respiratory rate 20. HEENT: Unremarkable. NECK: Supple. LUNGS: Have decreased breath sounds. HEART: Normal S1, S2. ABDOMEN: Soft. LABORATORY DATA: The patient's white count of 4.2, hemoglobin of 9. Chemistries are noted. Platelets are 17. BUN of 14, creatinine 0.7. Review of orders reveals the patient to be off of antibiotics. ASSESSMENT AND PLAN: This is a 53-year-old female with a history of myelodysplastic syndrome, lung cancer, chemotherapy, chronic lung disease, sickle cell, history of endocarditis, history of acute kidney injury who was admitted this admission with septic shock, neutropenia which now has resolved, currently off of antibiotics. The patient admitted in last admission with septic shock. On this admission, the patient is admitted with epistaxis with thrombocytopenia, history of chronic obstructive lung disease, asthma, currently off of antibiotics. The patient is at risk for developing nosocomial infections. We will follow with you. Terrance Juan MD
[2018-08-03 17:15] VITALS: BP 144/98; PULSE 86; RESP 20; TEMP 97.9; O2SAT 98
--- NOTE | 2018-08-07 02:58 | DS ---
HISTORY OF PRESENT ILLNESS: The patient was admitted to the hospital because of nosebleed, found to have low platelets. Hematology consulting the patient. Platelet transfusion is done. Before discharge, her platelets went down and she got another platelet transfusions before discharge and the patient was discharged home to follow up with Dr. Lopez. During hospitalization, she had nosebleed. She was having packing with balloon, which stopped the bleeding. ENT saw the patient. Balloon was removed. The patient has no more further bleeding and she is ready to discharge and got platelet transfusion before discharge to be followed with Dr. Lopez as outpatient. She has no other complaints. is stable. Blood pressure is stable. PHYSICAL EXAMINATION: VITAL SIGNS: Temperature is 97.9, heart rate 86, blood pressure 138/87, respirations 20, and saturation 98%. HEAD AND NECK: Normal. No JVD. No thyromegaly. CHEST: Clear bilaterally. CARDIAC: First sound and second sound normal. ABDOMEN: Soft and nontender. EXTREMITIES: No edema. NEUROLOGIC: Normal other than general weakness. LABORATORY DATA: White count 4.2, hemoglobin 9.8, hematocrit 29.9, and platelets 21,000. Chemistry noted for sodium 140, potassium 4.1, chloride 101, bicarb 25, BUN 14, and creatinine 0.7. Liver function test is normal. The patient discharged home. Discussed DNR status, the patient will think about it. I discussed with the patient's nurse to follow up with Dr. Lopez as outpatient after platelet transfusions. mask given to the patient. All her medications given including nebulizer treatment and Nicorette patch. DISCHARGE DIAGNOSES: 1. Nosebleed. 2. Thrombocytopenia secondary to acute myeloid leukemia or myelodysplastic syndrome. 3. Chronic obstructive pulmonary disease. 4. Hypertension. 5. General weakness. PLAN: The patient refused to go to rehabilitation. She wants to go home and she was discharged. The patient uses a walker at home, she seems ambulating okay with that and will follow up in the office within a week or two. Follow up with Dr. Lopez next week. The patient received platelet transfusions before leaving the hospital. August Lara MD [facility] # [id number]
== END 2018-08-03 18:02 | disposition home or self-care (01) | DRG 576 ==
LOC: ED 10:15 → ERH 11:14 → 2RSO 13:16
PROVIDERS: ADMIT Internal Medicine; ATTEND Internal Medicine
PROC: 30233R1 Transfusion of Nonautologous Platelets into Peripheral Vein, Percutaneous Approach (ICD-10-PCS; principal; 2018-07-29)
PROC: 2Y41X5Z Packing of Nasal Region using Packing Material (ICD-10-PCS; 2018-07-29)
PROC: 30233N1 Transfusion of Nonautologous Red Blood Cells into Peripheral Vein, Percutaneous Approach (ICD-10-PCS; 2018-07-30)
DX: C92.00 Acute myeloblastic leukemia, not having achieved remission (principal); J18.9 Pneumonia, unspecified organism; D69.59 Other secondary thrombocytopenia; D57.1 Sickle-cell disease without crisis; D61.818 Other pancytopenia; E87.6 Hypokalemia; E87.3 Alkalosis; J44.1 Chronic obstructive pulmonary disease with (acute) exacerbation; J44.0 Chronic obstructive pulmonary disease with (acute) lower respiratory infection; I11.0 Hypertensive heart disease with heart failure; I50.9 Heart failure, unspecified; F06.4 Anxiety disorder due to known physiological condition; Z94.2 Lung transplant status; D46.9 Myelodysplastic syndrome, unspecified; R04.0 Epistaxis; E83.42 Hypomagnesemia; I38 Endocarditis, valve unspecified; Z85.118 Personal history of other malignant neoplasm of bronchus and lung; Z90.2 Acquired absence of lung [part of]; Z87.891 Personal history of nicotine dependence; Z85.3 Personal history of malignant neoplasm of breast

== ENCOUNTER 2018-08-07 13:03 | Inpatient (IN) | payer MEDICAID ==
[2018-08-07] MEDS: Sodium Chloride 0.9% 1,000 ML IV SCH (13:39)
[2018-08-07] MEDS ORDERED: Vancomycin 1gm in NS 250ml 1 GM/250 ML BAG IVPB STA (14:18)
[2018-08-07] MEDS ORDERED: MEROPENEM 500 MG in NS 500 MG/50 ML BAG IVPB ONE (14:18)
[2018-08-07] MEDS ORDERED: Morphine 4 mg/ml ISec IVP STA (14:23)
--- NOTE | 2018-08-07 14:42 | RAD ---
Date of service: 08/07/2018 HISTORY: fever COMPARISON: 07/29/2018 FINDINGS: The left PICC line terminates in the SVC. LUNGS: The lungs are hyperinflated and there is peribronchial thickening with chronic changes in both lungs. There are chronic changes in both lungs. No focal consolidation. PLEURA: No pleural effusions or pneumothorax. CARDIOVASCULAR: The heart is normal in size. There are aortic atherosclerotic calcifications present. OSSEOUS STRUCTURES: Within normal limits for the patient's age. VISUALIZED UPPER ABDOMEN: Normal. OTHER FINDINGS: None. IMPRESSION: No active pulmonary disease. COPD.
--- NOTE | 2018-08-07 15:20 | ED PDOC ---
Arrival/HPI - General Chief Complaint: Fever Time Seen by Provider: 08/07/18 13:25 Historian: Patient - History of Present Illness Narrative History of Present Illness (Text): 08/07/18 15:20 53 year old female, whose past medical history is significant for leukemia, neutropenia and thrombocytopenia, who presents to the emergency department for evaluation of fever. Patient reports she was here yesterday to get platelets due to a low platelet level, where she was found to have a high temperature. she reports she was admitted to ensure the fever was not an infection. She endorses abdominal pain and reports she is urinating and passing bowels normally. she denies dysuria, hematuria, nausea, or any other complaints. PMD: Dr. Lara Time/Duration: 24 hours Symptom Onset: Gradual Symptom Course: Unchanged Activities at Onset: Light Context: Home Past Medical History - Provider Review Nursing Documentation Reviewed: Yes - Past History Past History: No Previous - Infectious Disease Hx of Infectious Diseases: None - Tetanus Immunization Tetanus Immunization: Unknown - Reproductive Menopause: Yes - Cardiac Hx Pacemaker: No - Pulmonary Hx Pneumonia: Yes - Neurological Hx Dizziness: Yes - HEENT Hx Epistaxis: Yes - Renal Other/Comment: "englarged kidney" - Endocrine/Metabolic Hx Systemic Lupus Erythematosus: Yes - Hematological/Oncological Hx Unexplained Bleeding: Yes (Epitaxis) Other/Comment: SLE - Integumentary Hx Dermatological Disorder: No - Musculoskeletal/Rheumatological Hx Musculoskeletal Disorders: No - Gastrointestinal Hx Constipation: Yes - Genitourinary/Gynecological Hx Genitourinary Disorders: No - Psychiatric Hx Anxiety: Yes Hx Substance Use: No - Surgical History Hx Mastectomy: No - Anesthesia Hx Anesthesia: Yes Hx Anesthesia Reactions: No Hx Malignant Hyperthermia: No Family/Social History - Physician Review Nursing Documentation Reviewed: Yes Family/Social History: Unknown Family HX Smoking Status: Former Smoker Hx Alcohol Use: No Hx Substance Use: No Hx Substance Use Treatment: No Allergies/Home Meds Allergies/Adverse Reactions: Allergies No Known Allergies Allergy (Verified 08/07/18 19:04) Home Medications: Home Meds Medication Instructions Recorded Confirmed Prochlorperazine [Compazine] 1 cap PO Q6H 06/12/18 08/07/18 Vitamin B Complex [Super B-50 1 cap PO DAILY 06/12/18 08/07/18 Complex] oxyCODONE/Acetaminophen [Percocet 1 tab PO Q6H 06/12/18 08/07/18 5/325 mg Tab] Losartan [Cozaar] 50 mg PO QPM 08/03/18 08/07/18 Magnesium Oxide [Magox 400] 400 mg PO BID 08/03/18 08/07/18 Nicotine 21 mg/24 hr [Nicoderm CQ] 21 mg TD DAILY 08/03/18 08/07/18 Ergocalciferol (Vitamin D2) 1 cap PO SUN 08/07/18 08/07/18 [Vitamin D2] Fluconazole [Diflucan] 200 mg PO DAILY 08/07/18 08/07/18 [place] Nasal [place] 2 spr TITO QID 08/07/18 08/07/18 Tiotropium [Spiriva] 1 cap INH DAILY 08/07/18 08/07/18 Review of Systems - Review of Systems Constitutional: Fevers Respiratory: absent: SOB, Cough Cardiovascular: absent: Chest Pain Gastrointestinal: Abdominal Pain Genitourinary Female: absent: Dysuria, Hematuria, Urine Output Changes Musculoskeletal: absent: Back Pain, Neck Pain Neurological: absent: Headache, Dizziness Endocrine: absent: Diaphoresis Physical Exam Temperature: Afebrile Blood Pressure: Hypotensive Pulse: Tachycardic Respiratory Rate: Normal Appearance: Positive for: Well-Appearing, Non-Toxic, Comfortable, Cachectic Pain Distress: None Mental Status: Positive for: Alert and Oriented X 3 - Systems Exam Head: Present: Atraumatic, Normocephalic Pupils: Present: PERRL Extroacular Muscles: Present: EOMI Conjunctiva: Present: Normal Mouth: Present: Dry Neck: Present: Normal Range of Motion Respiratory/Chest: Present: Clear to Auscultation, Good Air Exchange. No: Respiratory Distress, Accessory Muscle Use Cardiovascular: Present: Regular Rate and Rhythm, Normal S1, S2. No: Murmurs Abdomen: Present: Tenderness (abdominal tenderness, diffused), Distention. No: Peritoneal Signs Back: Present: Normal Inspection Upper Extremity: Present: Normal Inspection. No: Cyanosis, Edema Lower Extremity: Present: Normal Inspection. No: Edema Neurological: Present: GCS=15, CN II-XII Intact, Speech Normal Skin: Present: Warm, Dry, Normal Color. No: Rashes Psychiatric: Present: Alert, Oriented x 3, Normal Insight, Normal Concentration Medical Decision Making ED Course and Treatment: 08/07/18 15:19 Impression: 53 year old female presents to the emergency department for evaluation of fever. Differential Diagnosis included but are not limited to: --Sepsis --DIC Plan: -- Chest X-ray -- EKG -- Labs -- Merrem IV -- Morphine -- IV Fluids -- VBG Shock panel -- Tylenol -- Blood culture -- Urine culture -- Vancomycin -- Zofran -- Influenza AB -- Reassess and disposition Prior Visits: Notes and results from previous visits were reviewed. Progress Notes: 08/07/18 Labs reviewed from previous with platelets noted to be low. CT a/p reveals pathology suspicious for ileitis. Antibiotics started and platelets ordered. Discussed case with Dr. Lara(PCP) who accepts patient onto his service. - RAD Interpretation Narrative RAD Interpretations (Text): 08/07/18 16:43 Chest X-ray shows: No active pulmonary disease. COPD. Radiology Orders: 08/07/18 13:31 CHEST PORTABLE [RAD] Stat Fixed Route Bus Operator: Radiologist - EKG Interpretation EKG Interpretation (Text): 08/07/18 17:03 EKG reviewed, shows: Sinus tachycardia at 107 bpm, LVH, No ST elevations. Interpreted by ED Physician: Yes - Medication Orders Current Medication Orders: Sodium Chloride (Sodium Chloride 0.9%) 1,000 mls @ 100 mls/hr IV .Q10H [facility] Last Admin: 08/07/18 13:39 Dose: 100 mls/hr eMAR Start Stop Document 08/07/18 13:39 SRE (Rec: 08/07/18 13:39 SRE [id number]) Intravenous Solution Start Date 08/07/18 Start Time 13:39 Vancomycin HCl (Vancomycin 1gm) 1 gm in 250 mls @ 167 mls/hr IVPB STAT STA; Protocol Stop: 08/07/18 15:47 Last Admin: 08/07/18 15:09 Dose: Not Given Non-Admin Reason: given already Discontinued Medications Acetaminophen (Tylenol 325mg Tab) 650 mg PO STAT STA Stop: 08/07/18 13:32 Last Admin: 08/07/18 13:37 Dose: 650 mg MAR Pain/Vitals Document 08/07/18 13:37 SRE (Rec: 08/07/18 13:37 SRE [id number]) Pain Reassessment Is This A Pain ReAssessment? Yes Sleep Is patient sleeping during reassessment? No Presence of Pain Presence of Pain Yes Meropenem/Sodium Chloride (Merrem Iv 500 Mg/Ns 50 Ml) 500 mg in 50 mls @ 100 mls/hr IVPB Q12 ONE; Protocol Stop: 08/07/18 14:47 Last Admin: 08/07/18 15:09 Dose: Not Given Non-Admin Reason: given already Morphine Sulfate (Morphine) 4 mg IVP STAT STA Stop: 08/07/18 14:24 Last Admin: 08/07/18 14:57 Dose: 4 mg MAR Pain Assessment Document 08/07/18 14:57 SZA (Rec: 08/07/18 14:58 [id number] Pain Reassessment Is this a pain reassessment? No Sleep Is patient sleeping during reassessment? No Presence of Pain Presence of Pain Yes IVP Administration Document 08/07/18 14:57 SZA (Rec: 08/07/18 14:58 [id number] Charges for Administration # of IVP Administrations 1 Ondansetron HCl (Zofran Inj) 4 mg IVP STAT STA Stop: 08/07/18 14:24 Last Admin: 08/07/18 14:58 Dose: 4 mg IVP Administration Document 08/07/18 14:58 SZA (Rec: 08/07/18 14:58 [id number]) Charges for Administration # of IVP Administrations 1 - Scribe Statement The provider has reviewed the documentation as recorded by the Giovani Love Provider Scribe Attestation: All medical record entries made by the Scribromaine were at my direction and personally dictated by me. I have reviewed the chart and agree that the record accurately reflects my personal performance of the history, physical exam, medical decision making, and the department course for this patient. I have also personally directed, reviewed, and agree with the discharge instructions and di sposition. Disposition/Present on Arrival - Present on Arrival Any Indicators Present on Arrival: No History of DVT/PE: No History of Uncontrolled Diabetes: No Urinary Catheter: No History of Decub. Ulcer: No History Surgical Site Infection Following: None - Disposition Have Diagnosis and Disposition been Completed?: Yes Diagnosis: Thrombocytopenia Disposition: HOSPITALIZED Disposition Time: 12:00 Patient Plan: Admission, Telemetry Patient Problems: Current Active Problems Problem Status Onset Thrombocytopenia Acute Condition: GUARDED
[2018-08-07] MEDS: Oxycodone/Acetaminophen 5/325 mg Tab PO SCH (17:18)
[2018-08-07] MEDS: Pantoprazole 40 mg EC Tab PO SCH (17:18)
[2018-08-07] MEDS: Magnesium Oxide 400 mg Tab UD PO SCH (18:52)
--- NOTE | 2018-08-07 19:19 | CARD ---
APPROVED REPORT Date of service: 08/07/2018 EKG Measurement Heart [id number] <Conclusion> Sinus tachycardia Biatrial enlargement Left ventricular hypertrophy Cannot rule out Septal infarct, age undetermined Abnormal ECG
[2018-08-07] MEDS ORDERED: Vancomycin 1gm in NS 250ml 1 GM/250 ML BAG IVPB SCH ×2 (19:30→20:00)
[2018-08-07] MEDS: Arformoterol 15 mcg/2 ml Inh Sol IH SCH (20:00)
[2018-08-07] MEDS: Budesonide 0.5 mg/2 ml Inhal Susp UD IH SCH (20:00)
[2018-08-07] MEDS ORDERED: Albuterol 0.083% Inhal Sol (2.5 mg/3 mL) UD IH SCH (20:00)
[2018-08-07] MEDS ORDERED: Arformoterol 15 mcg/2 ml Inh Sol IH SCH (20:00)
[2018-08-07] MEDS: Vancomycin 1gm in NS 250ml 1 GM/250 ML BAG IVPB SCH (21:51)
[2018-08-07] MEDS: Meropenem IV 1 gm in NS 1 GM/50 ML BAG IVPB SCH (21:55)
--- NOTE | 2018-08-07 23:15 | CP.PCM.PN ---
Subjective - Date & Time of Evaluation Date of Evaluation: 08/07/18 Time of Evaluation: 23:13 - Subjective Subjective: Patient is due for platelet transfusion however nurse was concerned about transfusion due to fever of 102. We will give 650mg tylenol now and check temp in 1 hour, if temp is improved we will go ahead with the platelet transfusion given low platelet count of 7 and her being at a high risk for spontaneous brain bleed. Objective - Vital Signs/Intake and Output Vital Signs (last 24 hours): Temp Pulse Resp BP Pulse Ox 102.8 F H 75 20 116/75 92 L 08/07/18 19:21 08/07/18 20:02 08/07/18 19:21 08/07/18 19:21 08/07/18 19:21 Intake and Output: 08/07/18 08/08/18 18:59 06:59 Intake Total 300 Balance 300 - Medications Medications: Current Medications Acetaminophen (Tylenol 325mg Tab) 650 mg PO Q6H PRN PRN Reason: Fever >100.4 F Last Admin: 08/07/18 18:31 Dose: 650 mg Albuterol Sulfate (Albuterol 0.083% Inhal Raysa (2.5 Mg/3 Ml) Ud) 2.5 mg IH [id number] [facility] Amlodipine Besylate (Norvasc) 10 mg PO DAILY [facility] Arformoterol Tartrate (Brovana) 15 mcg IH [id number] [facility] Last Admin: 08/07/18 20:00 Dose: 15 mcg Atenolol (Tenormin) 25 mg PO BID [facility] Last Admin: 08/07/18 18:52 Dose: 25 mg Budesonide (Pulmicort Respules) 0.5 mg IH BIDRESP [facility] Last Admin: 08/07/18 20:00 Dose: 0.5 mg Clonazepam (Klonopin) 0.5 mg PO BID [facility]; Protocol Last Admin: 08/07/18 18:52 Dose: 0.5 mg Ergocalciferol (Drisdol 50,000 Intl Units Cap) 1 cap PO SUN [facility] Sodium Chloride (Sodium Chloride 0.9%) 1,000 mls @ 100 mls/hr IV .Q10H [facility] Last Admin: 08/07/18 13:39 Dose: 100 mls/hr Meropenem (Merrem Iv 1 Gm Premix) 1 gm in 50 mls @ 100 mls/hr IVPB Q8 [facility]; Protocol Stop: 08/16/18 22:01 Last Admin: 08/07/18 21:55 Dose: 100 mls/hr Vancomycin HCl (Vancomycin 1gm) 1 gm in 250 mls @ 167 mls/hr IVPB Q12 [facility]; Protocol Stop: 08/16/18 22:01 Last Admin: 08/07/18 21:51 Dose: 167 mls/hr Loratadine (Claritin) 10 mg PO DAILY [facility] Losartan Potassium (Cozaar) 50 mg PO QPM [facility] Last Admin: 08/07/18 18:52 Dose: 50 mg Magnesium Oxide (Mag-Ox) 400 mg PO BID [facility] Last Admin: 08/07/18 18:52 Dose: 400 mg Mirtazapine (Remeron) 15 mg PO HS [facility] Last Admin: 08/07/18 21:50 Dose: 15 mg Montelukast Sodium (Singulair) 10 mg PO DAILY [facility] Nicotine (Nicoderm Cq) 1 patch TD DAILY [facility] Last Admin: 08/07/18 17:17 Dose: 1 patch Non-Formulary Medication (Vitamin B Complex [Super B-50 Complex]) 1 cap PO DAILY [facility] Oxycodone/Acetaminophen (Percocet 5/325 Mg Tab) 1 tab PO Q6H [facility] Stop: 08/10/18 16:31 Last Admin: 08/07/18 17:18 Dose: 1 tab Pantoprazole Sodium (Protonix Ec Tab) 40 mg PO DAILY [facility] Last Admin: 08/07/18 17:18 Dose: 40 mg Potassium Chloride (K-Dur 20 Meq Er Tab) 20 meq PO DAILY [facility] Sodium Chloride ([place] Nasal [place]) 0 ml NS QID [facility] Tiotropium Organ (Spiriva) 18 mcg INH DAILY [facility]
[2018-08-07] MEDS ORDERED: Influenza Vaccine 60 mcg/0.5 mL SYR (4YR UP) IM ONE (23:53)
--- NOTE | 2018-08-08 01:12 | CP.PCM.PN ---
Subjective - Date & Time of Evaluation Date of Evaluation: 08/08/18 Time of Evaluation: 01:10 - Subjective Subjective: Nurse paged for patient continuing to have increasing temp despite tylenol. Will hold on transfusion for now. Will continue to check temp hourly, nurse asked to please inform if temp improves so we can continue with transfusion. Asked to please be notified of any signs of bleeding, increased dizziness, weakness, skin changes. Objective - Vital Signs/Intake and Output Vital Signs (last 24 hours): Temp Pulse Resp BP Pulse Ox 101.9 F H 122 H 20 128/63 98 08/08/18 01:00 08/08/18 01:00 08/08/18 01:00 08/08/18 01:00 08/08/18 01:00 Intake and Output: 08/07/18 08/08/18 18:59 06:59 Intake Total 300 Balance 300 - Medications Medications: Current Medications Acetaminophen (Tylenol 325mg Tab) 650 mg PO Q6H PRN PRN Reason: Fever >100.4 F Last Admin: 08/07/18 18:31 Dose: 650 mg Albuterol Sulfate (Albuterol 0.083% Inhal [place]aysa (2.5 Mg/3 Ml) Ud) 2.5 mg IH [id number] [facility] Amlodipine Besylate (Norvasc) 10 mg PO DAILY [facility] Arformoterol Tartrate (Brovana) 15 mcg IH [id number] [facility] Last Admin: 08/07/18 20:00 Dose: 15 mcg Atenolol (Tenormin) 25 mg PO BID [facility] Last Admin: 08/07/18 18:52 Dose: 25 mg Budesonide (Pulmicort Respules) 0.5 mg IH BIDRESP [facility] Last Admin: 08/07/18 20:00 Dose: 0.5 mg Clonazepam (Klonopin) 0.5 mg PO BID [facility]; Protocol Last Admin: 08/07/18 18:52 Dose: 0.5 mg Ergocalciferol (Drisdol 50,000 Intl Units Cap) 1 cap PO SUN [facility] Sodium Chloride (Sodium Chloride 0.9%) 1,000 mls @ 100 mls/hr IV .Q10H [facility] Last Admin: 08/07/18 13:39 Dose: 100 mls/hr Meropenem (Merrem Iv 1 Gm Premix) 1 gm in 50 mls @ 100 mls/hr IVPB Q8 [facility]; Protocol Stop: 08/16/18 22:01 Last Admin: 08/07/18 21:55 Dose: 100 mls/hr Vancomycin HCl (Vancomycin 1gm) 1 gm in 250 mls @ 167 mls/hr IVPB Q12 [facility]; Protocol Stop: 08/16/18 22:01 Last Admin: 08/07/18 21:51 Dose: 167 mls/hr Loratadine (Claritin) 10 mg PO DAILY [facility] Losartan Potassium (Cozaar) 50 mg PO QPM [facility] Last Admin: 08/07/18 18:52 Dose: 50 mg Magnesium Oxide (Mag-Ox) 400 mg PO BID [facility] Last Admin: 08/07/18 18:52 Dose: 400 mg Mirtazapine (Remeron) 15 mg PO HS [facility] Last Admin: 08/07/18 21:50 Dose: 15 mg Montelukast Sodium (Singulair) 10 mg PO DAILY [facility] Nicotine (Nicoderm Cq) 1 patch TD DAILY [facility] Last Admin: 08/07/18 17:17 Dose: 1 patch Non-Formulary Medication (Vitamin B Complex [Super B-50 Complex]) 1 cap PO DAILY [facility] Oxycodone/Acetaminophen (Percocet 5/325 Mg Tab) 1 tab PO Q6H [facility] Stop: 08/10/18 16:31 Last Admin: 08/07/18 17:18 Dose: 1 tab Pantoprazole Sodium (Protonix Ec Tab) 40 mg PO DAILY [facility] Last Admin: 08/07/18 17:18 Dose: 40 mg Potassium Chloride (K-Dur 20 Meq Er Tab) 20 meq PO DAILY [facility] Sodium Chloride ([place] Nasal [place]) 0 ml NS QID [facility] Tiotropium [place] (Spiriva) 18 mcg INH DAILY [facility]
[2018-08-08 01:43] LABS: URINE BILIRUBIN NEGATIVE (NEGATIVE); URINE BLOOD NEGATIVE (NEGATIVE); URINE GLUCOSE (UA) NEGATIVE (NEGATIVE); URINE LEUKOCYTE ESTERASE NEGATIVE Leu/uL (NEGATIVE); URINE PROTEIN TRACE mg/dL (<30 mg/dL)
[2018-08-08 01:44] LABS: URINE APPEARANCE CLEAR (CLEAR); URINE COLOR YELLOW (YELLOW)
[2018-08-08 02:00] LABS: URINE BACTERIA RARE /hpf; URINE RBC 0 - 2 /hpf (0-2)
[2018-08-08] MEDS: Sodium Chloride 0.9% 1,000 ML IV SCH ×2 (03:48→22:16)
[2018-08-08] MEDS: Meropenem IV 1 gm in NS 1 GM/50 ML BAG IVPB SCH ×3 (05:01→22:15)
[2018-08-08] MEDS: Oxycodone/Acetaminophen 5/325 mg Tab PO SCH ×5 (05:03→22:15)
[2018-08-08] MEDS: Budesonide 0.5 mg/2 ml Inhal Susp UD IH SCH ×2 (08:16→21:25)
[2018-08-08] MEDS: Arformoterol 15 mcg/2 ml Inh Sol IH SCH ×2 (08:16→21:25)
--- NOTE | 2018-08-08 09:18 | CP.PCM.CON ---
History of Present Illness - History of Present Illness History of Present Illness: Christopher Roberson DO, PGY-1 Hematology/Oncology Consult Note for Dr. Lopez CC: fever, not feeling well HPI: Patient is a 53 year old female with PMH of MDS (high grade, s/p chemotherapy), immunosuppression, lung cancer (s/p lobectomy), R breast mastectomy, COPD, and endocarditis who presented to infusion clinic yesterday for repeat platelet transfusion. She was found to be febrile on initial examination with Tmax 101.2. She admitted to generally not feeling well since the day prior and admitted to chills, body aches, cough, sore throat. She was sent to ED for urgent evaluation and admission. ID consult was placed and she was started on broad spectrum abx. On examination this AM, patient states that she feels better and is more awake and alert than in the infusion clinic yesterday. She has been persistently febrile overnight which has prevented her from getting more than one unit of platelets last night. She continues to complain of fever/chills, diffuse abdominal cramping, nausea, and body aches. She denies CP, SOB, vomiting, diarrhea, RUSSELL, changes in vision, dysuria, urinary frequency. 12-point ROS was otherwise negative except as specified above. Past Patient History - Infectious Disease Hx of Infectious Diseases: None - Tetanus Immunizations Tetanus Immunization: Unknown - Past Social History Smoking Status: Former Smoker - CARDIAC Hx Cardiac Disorders: Yes Hx Hypertension: Yes Hx Pacemaker: No - PULMONARY Hx Respiratory Disorders: Yes Hx Bronchitis: Yes Hx Emphysema: Yes Hx Pneumonia: Yes Hx Sleep Apnea: Yes - NEUROLOGICAL Hx Neurological Disorder: Yes Hx Dizziness: Yes Hx Transient Ischemic Attacks (TIA): Yes - HEENT Hx HEENT Problems: Yes Hx Epistaxis: Yes - RENAL Hx Chronic Kidney Disease: Yes Hx Kidney Stones: Yes Other/Comment: "englarged kidney" - ENDOCRINE/METABOLIC Hx Endocrine Disorders: Yes Hx Systemic Lupus Erythematosus: Yes - HEMATOLOGICAL/ONCOLOGICAL Hx Blood Disorders: Yes Hx Anemia: Yes Hx Cancer: Yes (breast, lung, MDS) Hx Sickle Cell Disease: Yes Hx Unexplained Bleeding: Yes (Epitaxis) Other/Comment: SLE - INTEGUMENTARY Hx Dermatological Problems: No - MUSCULOSKELETAL/RHEUMATOLOGICAL Hx Musculoskeletal Disorders: Yes Hx Back Pain: Yes Hx Falls: Yes Hx Unsteady Gait: Yes - GASTROINTESTINAL Hx Gastrointestinal Disorders: Yes (CONSTIPATION,WEIGHT LOSS 14 LBS .) Other/Comment: gall stones - GENITOURINARY/GYNECOLOGICAL Hx Genitourinary Disorders: No - PSYCHIATRIC Hx Psychophysiologic Disorder: Yes Hx Anxiety: Yes - SURGICAL HISTORY Hx Surgeries: Yes Hx Mastectomy: No (R lumpectomy) Other/Comment: L foot sx, tonsilectomy - ANESTHESIA Hx Anesthesia: Yes Hx Anesthesia Reactions: No Hx Malignant Hyperthermia: No Meds Allergies/Adverse Reactions: Allergies Allergy/AdvReac Type Severity Reaction Status Date / Time No Known Allergies Allergy Verified 08/07/18 19:04 - Medications Medications: Current Medications Acetaminophen (Tylenol 325mg Tab) 650 mg PO Q6H PRN PRN Reason: Fever >100.4 F Last Admin: 08/07/18 18:31 Dose: 650 mg Albuterol Sulfate (Albuterol 0.083% Inhal Raysa (2.5 Mg/3 Ml) Ud) 2.5 mg IH [id number] [facility] Amlodipine Besylate (Norvasc) 10 mg PO DAILY [facility] Arformoterol Tartrate (Brovana) 15 mcg IH [id number] [facility] Last Admin: 08/08/18 08:16 Dose: 15 mcg Atenolol (Tenormin) 25 mg PO BID [facility] Last Admin: 08/07/18 18:52 Dose: 25 mg Budesonide (Pulmicort Respules) 0.5 mg IH BIDRESP [facility] Last Admin: 08/08/18 08:16 Dose: 0.5 mg Clonazepam (Klonopin) 0.5 mg PO BID [facility]; Protocol Last Admin: 08/07/18 18:52 Dose: 0.5 mg Ergocalciferol (Drisdol 50,000 Intl Units Cap) 1 cap PO SUN [facility] Sodium Chloride (Sodium Chloride 0.9%) 1,000 mls @ 100 mls/hr IV .Q10H [facility] Last Admin: 08/08/18 03:48 Dose: 100 mls/hr Meropenem (Merrem Iv 1 Gm Premix) 1 gm in 50 mls @ 100 mls/hr IVPB Q8 [facility]; Protocol Stop: 08/16/18 22:01 Last Admin: 08/08/18 05:01 Dose: 100 mls/hr Vancomycin HCl (Vancomycin 1gm) 1 gm in 250 mls @ 167 mls/hr IVPB Q12 [facility]; Protocol Stop: 08/16/18 22:01 Last Admin: 08/07/18 21:51 Dose: 167 mls/hr Loratadine (Claritin) 10 mg PO DAILY [facility] Losartan Potassium (Cozaar) 50 mg PO QPM [facility] Last Admin: 08/07/18 18:52 Dose: 50 mg Magnesium Oxide (Mag-Ox) 400 mg PO BID [facility] Last Admin: 08/07/18 18:52 Dose: 400 mg Mirtazapine (Remeron) 15 mg PO HS [facility] Last Admin: 08/07/18 21:50 Dose: 15 mg Montelukast Sodium (Singulair) 10 mg PO DAILY [facility] Nicotine (Nicoderm Cq) 1 patch TD DAILY [facility] Last Admin: 08/07/18 17:17 Dose: 1 patch Non-Formulary Medication (Vitamin B Complex [Super B-50 Complex]) 1 cap PO DAILY [facility] Oxycodone/Acetaminophen (Percocet 5/325 Mg Tab) 1 tab PO Q6H [facility] Stop: 08/10/18 16:31 Last Admin: 08/08/18 05:31 Dose: 1 tab Pantoprazole Sodium (Protonix Ec Tab) 40 mg PO DAILY [facility] Last Admin: 08/07/18 17:18 Dose: 40 mg Potassium Chloride (K-Dur 20 Meq Er Tab) 20 meq PO DAILY [facility] Sodium Chloride ([place] Nasal [place]) 0 ml NS QID [facility] Last Admin: 08/08/18 01:15 Dose: 2 sprays Tiotropium [place] (Spiriva) 18 mcg INH DAILY [facility] Physical Exam - Constitutional Appears: No Acute Distress - Head Exam Head Exam: ATRAUMATIC, NORMOCEPHALIC Results - Vital Signs Recent Vital Signs: Last Vital Signs Temp 102.3 F H 08/08/18 06:50 Pulse 109 H 08/08/18 03:46 Resp 20 08/08/18 03:46 BP 145/78 08/08/18 03:46 Pulse Ox 100 08/08/18 02:22 - Labs Result Diagrams: 08/08/18 09:30 08/08/18 09:30 Labs: Laboratory Results - last 24 hr 08/07/18 08/07/18 08/07/18 15:20 18:54 19:30 Lactic Acid 0.7 Urine Color Urine Appearance Urine pH Ur Specific [place] Urine Protein Urine Glucose (UA) Urine Ketones Urine Blood Urine Nitrate Urine Bilirubin Urine Urobilinogen Ur Leukocyte Esterase Urine RBC Urine WBC Ur Epithelial Cells Urine Bacteria Influenza Typ A,B (EIA) Negative for flu a/b Blood Type B POSITIVE Antibody Screen Negative BBK History Checked Patient has bt 08/08/18 01:23 Lactic Acid Urine Color Yellow Urine Appearance Clear Urine pH 6.0 Ur Specific [place] 1.020 Urine Protein Trace H Urine Glucose (UA) Negative Urine Ketones Trace H Urine Blood Negative Urine Nitrate Negative Urine Bilirubin Negative Urine Urobilinogen 1.0 H Ur Leukocyte Esterase Negative Urine RBC 0 - 2 Urine WBC 1 - 3 Ur Epithelial Cells 1 - 3 Urine Bacteria Rare Influenza Typ A,B (EIA) Blood Type Antibody Screen BBK History Checked Assessment & Plan - Assessment and Plan (Free Text) Assessment: 53 yo F with PMH of accelerated MDS (previously on cyclical therapy with cytaratine currently on hold secondary to previous hospital admission for PNA and acute drops in blood counts), immunosuppression, lung cancer (s/p lobectomy), R breast mastectomy, COPD, and endocarditis presented to infusion clinic yesterday for repeat platelet transfusion found to have Tmax of 101.2 with tachycardia. She was evaluated in ED and subsequently admitted and placed on broad spectrum abx. Plan: Thrombocytopenia Likely 2/2 progressing MDS Given severity of MDS, has likely progressed to acute leukemia Transfusion has been difficult given patient's fevers overnight 1 unit transfused so far Will continue to monitor temp, transfuse additional units when able If able, would like to repeat bone marrow bx to assess for progressing disease Will start ensure clear for nutritional supplementation Palliative care consult placed, all recs appreciated Normocytic anemia 2/2 progressing MDS on anemia of chronic disease H/H trending down, may need transfusion of PRBCs Will reassess in AM Fever, tachycardia Unknown etiology at this point Continue anti-pyretics F/u thompson cx results On broad spectrum vanc/merrem ID following, all recs appreciated Case and plan reviewed and discussed with my attending Dr. John Roberson DO IM Resident PGY-1
[2018-08-08 09:46] LABS: HEMOGLOBIN 8.3 g/dL (12.0-16.0); MEAN CORPUSCULAR HEMOGLOBIN 28.8 pg (25.0-35.0); MEAN CORPUSCULAR HGB CONC 31.7 g/dl (31.0-37.0); MEAN PLATELET VOLUME 8.9 fl (7.0-11.0); RBC 2.88 10^6/uL (3.5-6.1); RED CELL DISTRIBUTION WIDTH 14.9 % (11.5-14.5); WHITE BLOOD COUNT 6.1 10^3/uL (4.5-11.0)
--- NOTE | 2018-08-08 09:46 | CP.PCM.CON ---
<Scar Bermeo - Last Filed: 08/08/18 09:42> History of Present Illness - History of Present Illness History of Present Illness: Scar Bermeo D.O. PGY-3, Internal Medicine Resident, Infectious Disease Consultation Note 53-year-old female with a past medical history of myelodysplastic syndrome status post chemotherapy, lung cancer status post lobectomy, right breast m astectomy, chronic obstructive pulmonary disease, and endocarditis who presented for platelet transfusion yesterday at the infusion clinic and was found to be febrile with a fever of 101.2. Infectious disease consultation was requested for his fever. Patient was seen and examined at bedside. Patient states that she has not felt well for multiple days now, but prior to platelet infusion she was having chills and body aches as well as a dry cough and sore throat. Patient at this time states that she feels slightly better but overall tired as last night there was a lot of difficulty with trying to transfuse her with some platelets. Patient continued to have fevers. Patient was recently discharged. Denies any potential new sick contacts. Review of Systems - Review of Systems All systems: reviewed and no additional remarkable complaints except (as per HPI) Past Patient History - Infectious Disease Hx of Infectious Diseases: None - Tetanus Immunizations Tetanus Immunization: Unknown - Past Social History Smoking Status: Former Smoker - CARDIAC Hx Cardiac Disorders: Yes Hx Hypertension: Yes Hx Pacemaker: No - PULMONARY Hx Respiratory Disorders: Yes Hx Bronchitis: Yes Hx Emphysema: Yes Hx Pneumonia: Yes Hx Sleep Apnea: Yes - NEUROLOGICAL Hx Neurological Disorder: Yes Hx Dizziness: Yes Hx Transient Ischemic Attacks (TIA): Yes - HEENT Hx HEENT Problems: Yes Hx Epistaxis: Yes - RENAL Hx Chronic Kidney Disease: Yes Hx Kidney Stones: Yes Other/Comment: "englarged kidney" - ENDOCRINE/METABOLIC Hx Endocrine Disorders: Yes Hx Systemic Lupus Erythematosus: Yes - HEMATOLOGICAL/ONCOLOGICAL Hx Blood Disorders: Yes Hx Anemia: Yes Hx Cancer: Yes (breast, lung, MDS) Hx Sickle Cell Disease: Yes Hx Unexplained Bleeding: Yes (Epitaxis) Other/Comment: SLE - INTEGUMENTARY Hx Dermatological Problems: No - MUSCULOSKELETAL/RHEUMATOLOGICAL Hx Musculoskeletal Disorders: Yes Hx Back Pain: Yes Hx Falls: Yes Hx Unsteady Gait: Yes - GASTROINTESTINAL Hx Gastrointestinal Disorders: Yes (CONSTIPATION,WEIGHT LOSS 14 LBS .) Other/Comment: gall stones - GENITOURINARY/GYNECOLOGICAL Hx Genitourinary Disorders: No - PSYCHIATRIC Hx Psychophysiologic Disorder: Yes Hx Anxiety: Yes - SURGICAL HISTORY Hx Surgeries: Yes Hx Mastectomy: No (R lumpectomy) Other/Comment: L foot sx, tonsilectomy - ANESTHESIA Hx Anesthesia: Yes Hx Anesthesia Reactions: No Hx Malignant Hyperthermia: No Meds Allergies/Adverse Reactions: Allergies Allergy/AdvReac Type Severity Reaction Status Date / Time No Known Allergies Allergy Verified 08/07/18 19:04 - Medications Medications: Current Medications Acetaminophen (Tylenol 325mg Tab) 650 mg PO Q6H PRN PRN Reason: Fever >100.4 F Last Admin: 08/07/18 18:31 Dose: 650 mg Albuterol Sulfate (Albuterol 0.083% Inhal Raysa (2.5 Mg/3 Ml) Ud) 2.5 mg IH [id number] [facility] Amlodipine Besylate (Norvasc) 10 mg PO DAILY [facility] Arformoterol Tartrate (Brovana) 15 mcg IH [id number] [facility] Last Admin: 08/08/18 08:16 Dose: 15 mcg Atenolol (Tenormin) 25 mg PO BID [facility] Last Admin: 08/07/18 18:52 Dose: 25 mg Budesonide (Pulmicort Respules) 0.5 mg IH BIDRESP [facility] Last Admin: 08/08/18 08:16 Dose: 0.5 mg Clonazepam (Klonopin) 0.5 mg PO BID [facility]; Protocol Last Admin: 08/07/18 18:52 Dose: 0.5 mg Ergocalciferol (Drisdol 50,000 Intl Units Cap) 1 cap PO SUN [facility] Sodium Chloride (Sodium Chloride 0.9%) 1,000 mls @ 100 mls/hr IV .Q10H [facility] Last Admin: 08/08/18 03:48 Dose: 100 mls/hr Meropenem (Merrem Iv 1 Gm Premix) 1 gm in 50 mls @ 100 mls/hr IVPB Q8 [facility]; Protocol Stop: 08/16/18 22:01 Last Admin: 08/08/18 05:01 Dose: 100 mls/hr Vancomycin HCl (Vancomycin 1gm) 1 gm in 250 mls @ 167 mls/hr IVPB Q12 [facility]; Protocol Stop: 08/16/18 22:01 Last Admin: 08/07/18 21:51 Dose: 167 mls/hr Loratadine (Claritin) 10 mg PO DAILY [facility] Losartan Potassium (Cozaar) 50 mg PO QPM [facility] Last Admin: 08/07/18 18:52 Dose: 50 mg Magnesium Oxide (Mag-Ox) 400 mg PO BID [facility] Last Admin: 08/07/18 18:52 Dose: 400 mg Mirtazapine (Remeron) 15 mg PO HS [facility] Last Admin: 08/07/18 21:50 Dose: 15 mg Montelukast Sodium (Singulair) 10 mg PO DAILY [facility] Nicotine (Nicoderm Cq) 1 patch TD DAILY [facility] Last Admin: 08/07/18 17:17 Dose: 1 patch Non-Formulary Medication (Vitamin B Complex [Super B-50 Complex]) 1 cap PO DAILY [facility] Oxycodone/Acetaminophen (Percocet 5/325 Mg Tab) 1 tab PO Q6H [facility] Stop: 08/10/18 16:31 Last Admin: 08/08/18 05:31 Dose: 1 tab Pantoprazole Sodium (Protonix Ec Tab) 40 mg PO DAILY [facility] Last Admin: 08/07/18 17:18 Dose: 40 mg Potassium Chloride (K-Dur 20 Meq Er Tab) 20 meq PO DAILY [facility] Sodium Chloride ([place] Nasal [place]) 0 ml NS QID [facility] Last Admin: 08/08/18 01:15 Dose: 2 sprays Tiotropium [place] (Spiriva) 18 mcg INH DAILY [facility] Physical Exam - Constitutional Appears: Chronically Ill - Head Exam Head Exam: ATRAUMATIC - Eye Exam Eye Exam: EOMI, PERRL. absent: Scleral icterus - ENT Exam ENT Exam: Mucous Membranes Moist, Normal Oropharynx Additional comments: no palate petechiae - Neck Exam Neck exam: Positive for: Normal Inspection. Negative for: Lymphadenopathy - Respiratory Exam Respiratory Exam: Clear to Auscultation Bilateral. absent: Rales, Rhonchi, Wheezes - Cardiovascular Exam Cardiovascular Exam: RRR, +S1, +S2. absent: Gallop, Rubs - GI/Abdominal Exam GI & Abdominal Exam: Normal Bowel Sounds, Soft. absent: Distended, Tenderness - Extremities Exam Extremities exam: Negative for: calf tenderness, pedal edema - Neurological Exam Neurological exam: Alert, Oriented x3 - Psychiatric Exam Psychiatric exam: Normal Affect, Normal Mood - Skin Skin Exam: Dry, Warm Results - Vital Signs Recent Vital Signs: Last Vital Signs Temp 102.3 F H 08/08/18 06:50 Pulse 109 H 08/08/18 03:46 Resp 20 08/08/18 03:46 BP 145/78 08/08/18 03:46 Pulse Ox 100 08/08/18 02:22 - Labs Labs: Laboratory Results - last 24 hr 08/07/18 08/07/18 08/07/18 15:20 18:54 19:30 Lactic Acid 0.7 Urine Color Urine Appearance Urine pH Ur Specific [place] Urine Protein Urine Glucose (UA) Urine Ketones Urine Blood Urine Nitrate Urine Bilirubin Urine Urobilinogen Ur Leukocyte Esterase Urine RBC Urine WBC Ur Epithelial Cells Urine Bacteria Influenza Typ A,B (EIA) Negative for flu a/b Blood Type B POSITIVE Antibody Screen Negative BBK History Checked Patient has bt 08/08/18 01:23 Lactic Acid Urine Color Yellow Urine Appearance Clear Urine pH 6.0 Ur Specific [place] 1.020 Urine Protein Trace H Urine Glucose (UA) Negative Urine Ketones Trace H Urine Blood Negative Urine Nitrate Negative Urine Bilirubin Negative Urine Urobilinogen 1.0 H Ur Leukocyte Esterase Negative Urine RBC 0 - 2 Urine WBC 1 - 3 Ur Epithelial Cells 1 - 3 Urine Bacteria Rare Influenza Typ A,B (EIA) Blood Type Antibody Screen BBK History Checked Assessment & Plan - Assessment and Plan (Free Text) Assessment: 53-year-old female with a past medical history of myelodysplastic syndrome status post chemotherapy, lung cancer status post lobectomy, right breast mastectomy, chronic obstructive pulmonary disease, and endocarditis who presented for platelet transfusion yesterday at the infusion clinic and was found to be febrile with a fever of 101.2. Infectious disease consultation was requested for his fever. Plan: SIRS 2/4 with a fever as high as 102.3 and tachycardia, unclear source Immunocompromise state High-grade myelodysplastic syndrome Lung cancer status post lobectomy Given the recent discharge from the hospital, she has been at high risk for nosocomial infections and must consider sources such as HCAP MRSA screen ordered Sputum culture ordered Blood cultures ordered Urine culture ordered Strep and legionella ag ordered Pro-calcitonin elevated at 1.41 Chest x-ray did not appear to show active disease as read by me and radiologist except for COPD We will order a chest CT to further evaluate Empirically on meropenem/vanco Discussed with hematology oncology We will follow with you Patient was seen and examined and case to be discussed with attending physician Thank you for the pleasure participating in the care of this interesting patient - Date & Time Date: 08/08/18 Time: 07:15 <SnehaGerry - Last Filed: 08/08/18 22:31> Meds - Medications Medications: Current Medications Acetaminophen (Tylenol 325mg Tab) 650 mg PO Q4H PRN PRN Reason: Fever >100.4 F Last Admin: 08/08/18 17:08 Dose: 650 mg Albuterol/Ipratropium (Duoneb 3 Mg/0.5 Mg (3 Ml) Ud) 3 ml IH [id number] PRN PRN Reason: Shortness of Breath Amlodipine Besylate (Norvasc) 10 mg PO DAILY [facility] Last Admin: 08/08/18 11:47 Dose: 10 mg Arformoterol Tartrate (Brovana) 15 mcg IH [id number] [facility] Last Admin: 08/08/18 21:25 Dose: 15 mcg Atenolol (Tenormin) 25 mg PO BID [facility] Last Admin: 08/08/18 18:06 Dose: 25 mg Budesonide (Pulmicort Respules) 0.5 mg IH BIDRESP [facility] Last Admin: 08/08/18 21:25 Dose: 0.5 mg Clonazepam (Klonopin) 0.5 mg PO BID [facility]; Protocol Last Admin: 08/08/18 18:05 Dose: 0.5 mg Ergocalciferol (Drisdol 50,000 Intl Units Cap) 1 cap PO SUN [facility] Sodium Chloride (Sodium Chloride 0.9%) 1,000 mls @ 100 mls/hr IV .Q10H [facility] Last Admin: 08/08/18 22:16 Dose: 100 mls/hr Meropenem (Merrem Iv 1 Gm Premix) 1 gm in 50 mls @ 100 mls/hr IVPB Q8 [facility]; Protocol Stop: 08/16/18 22:01 Last Admin: 08/08/18 22:15 Dose: 100 mls/hr Vancomycin HCl (Vancomycin 1gm) 1 gm in 250 mls @ 167 mls/hr IVPB Q12 [facility]; Protocol Stop: 08/16/18 22:01 Last Admin: 08/08/18 22:16 Dose: 167 mls/hr Loratadine (Claritin) 10 mg PO DAILY [facility] Last Admin: 08/08/18 11:45 Dose: 10 mg Losartan Potassium (Cozaar) 50 mg PO QPM [facility] Last Admin: 08/08/18 18:04 Dose: 50 mg Magnesium Oxide (Mag-Ox) 400 mg PO BID [facility] Last Admin: 08/08/18 18:05 Dose: 400 mg Mirtazapine (Remeron) 15 mg PO HS [facility] Last Admin: 08/08/18 22:15 Dose: 15 mg Montelukast Sodium (Singulair) 10 mg PO DAILY [facility] Last Admin: 08/08/18 11:48 Dose: 10 mg Nicotine (Nicoderm Cq) 1 patch TD DAILY [facility] Last Admin: 08/08/18 11:46 Dose: 1 patch Non-Formulary Medication (Vitamin B Complex [Super B-50 Complex]) 1 cap PO DAILY [facility] Last Admin: 08/08/18 11:49 Dose: Not Given Ondansetron HCl (Zofran Inj) 4 mg IVP Q6H PRN PRN Reason: Nausea/Vomiting Oxycodone/Acetaminophen (Percocet 5/325 Mg Tab) 1 tab PO Q6H [facility] Stop: 08/10/18 16:31 Last Admin: 08/08/18 22:15 Dose: 1 tab Pantoprazole Sodium (Protonix Ec Tab) 40 mg PO DAILY [facility] Last Admin: 08/08/18 11:48 Dose: 40 mg Potassium Chloride (K-Dur 20 Meq Er Tab) 20 meq PO DAILY [facility] Last Admin: 08/08/18 11:45 Dose: 20 meq Sodium Chloride ([place] Nasal [place]) 0 ml NS QID [facility] Last Admin: 08/08/18 22:24 Dose: Not Given Tiotropium [place] (Spiriva) 18 mcg INH DAILY [facility] Last Admin: 08/08/18 11:48 Dose: 18 mcg Results - Vital Signs Recent Vital Signs: Last Vital Signs Temp 102.4 F H 08/08/18 18:08 Pulse 118 H 08/08/18 18:06 Resp 20 08/08/18 06:00 BP 107/67 08/08/18 18:06 Pulse Ox 99 08/08/18 06:00 - Labs Result Diagrams: 08/08/18 09:30 08/08/18 09:30 Labs: Laboratory Results - last 24 hr 08/07/18 08/08/18 08/08/18 18:54 01:23 09:30 WBC 6.1 RBC 2.88 L Hgb 8.3 L Hct 26.2 L MCV 91.0 MCH 28.8 MCHC 31.7 RDW 14.9 H Plt Count 30 L* MPV 8.9 Neutrophils % (Manual) 38 L Band Neutrophils % 1 Lymphocytes % (Manual) 20 L Monocytes % (Manual) 8 H Eosinophils % (Manual) 33 H Platelet Evaluation Low Sodium Potassium Chloride Carbon Dioxide Anion Gap BUN Creatinine Est GFR ( Amer) Est GFR (Non-Af Amer) Random Glucose Calcium Total Bilirubin AST ALT Alkaline Phosphatase Total Protein Albumin Globulin Albumin/Globulin Ratio Urine Color Yellow Urine Appearance Clear Urine pH 6.0 Ur Specific [place] 1.020 Urine Protein Trace H Urine Glucose (UA) Negative Urine Ketones Trace H Urine Blood Negative Urine Nitrate Negative Urine Bilirubin Negative Urine Urobilinogen 1.0 H Ur Leukocyte Esterase Negative Urine RBC 0 - 2 Urine WBC 1 - 3 Ur Epithelial Cells 1 - 3 Urine Bacteria Rare Blood Type B POSITIVE Antibody Screen Negative BBK History Checked Patient has bt 08/08/18 09:30 WBC RBC Hgb Hct MCV MCH MCHC RDW Plt Count MPV Neutrophils % (Manual) Band Neutrophils % Lymphocytes % (Manual) Monocytes % (Manual) Eosinophils % (Manual) Platelet Evaluation Sodium 139 Potassium 3.2 L Chloride 105 Carbon Dioxide 27 Anion Gap 10 BUN 10 Creatinine 0.7 Est GFR ( Amer) > 60 Est GFR (Non-Af Amer) > 60 Random Glucose 82 Calcium 8.6 Total Bilirubin 1.6 H AST 29 ALT 25 Alkaline Phosphatase 119 Total Protein 6.4 Albumin 2.9 L Globulin 3.5 Albumin/Globulin Ratio 0.8 L Urine Color Urine Appearance Urine pH Ur Specific [place] Urine Protein Urine Glucose (UA) Urine Ketones Urine Blood Urine Nitrate Urine Bilirubin Urine Urobilinogen Ur Leukocyte Esterase Urine RBC Urine WBC Ur Epithelial Cells Urine Bacteria Blood Type Antibody Screen BBK History Checked Assessment & Plan - Assessment and Plan (Free Text) Plan: Infectious Diseases Attending Physician Attestation Patient seen and examined at bedside, discussed with medical cash poster. I have reviewed the HPI, ROS, Family, Medical, Social and personal histories, physical examination findings. I have also reviewed the pertinent labs and diagnostic imaging. I have fully participiated in the care of this patient. I agree with the above findings, assessment, plan. In addition, patient with SIRS and fevers in his patient with MDS and immunocompromised state, R/O bacteremia, R/O sepsis. We have started Vancomycin and Merrem and follow up CT chest, blood, urine cx and will trend fever curve.
--- NOTE | 2018-08-08 09:49 | CP.PCM.CON ---
<Stewart Arroyo - Last Filed: 08/08/18 16:59> History of Present Illness - History of Present Illness History of Present Illness: Stewart Arroyo PGY2 GI Consult Note for Dr. Dela Cruz Reason for consult: abdominal pain Ms. Pope is a 53 year old female with a PMH of MDS (high grade, s/p chemotherapy), immunosuppression, lung cancer (s/p lobectomy, 2017), breast cancer s/p R breast mastectomy (2004), COPD, and endocarditis who presented to outpatient infusion clinic yesterday for repeat platelet transfusion and was found to be febrile on exam. Due to immunosuppression, patient is admitted and started on empiric antibiotics by ID. She reports abdominal pain mainly in the suprapubic region, and fevers. She also denies any nausea/vomiting/diarrhea, chest pain or changes in stool habits. 12-pt ROS was reviewed and is otherwise unremarkable. PMH: MDS, leukemia on chemotherapy, sickle cell, COPD, breast cancer PSH: mastectomy, lobectomy, reports previous EGD but cannot comment further Meds: reviewed, per MAR Allergies: NKDA SHx: denies current alcohol, former smoker FHx: reports mother with pancreatic/gastric cancers Review of Systems - Review of Systems All systems: reviewed and no additional remarkable complaints except (as per HPI) Past Patient History - Infectious Disease Hx of Infectious Diseases: None - Tetanus Immunizations Tetanus Immunization: Unknown - Past Social History Smoking Status: Former Smoker - CARDIAC Hx Cardiac Disorders: Yes Hx Hypertension: Yes Hx Pacemaker: No - PULMONARY Hx Respiratory Disorders: Yes Hx Bronchitis: Yes Hx Emphysema: Yes Hx Pneumonia: Yes Hx Sleep Apnea: Yes - NEUROLOGICAL Hx Neurological Disorder: Yes Hx Dizziness: Yes Hx Transient Ischemic Attacks (TIA): Yes - HEENT Hx HEENT Problems: Yes Hx Epistaxis: Yes - RENAL Hx Chronic Kidney Disease: Yes Hx Kidney Stones: Yes Other/Comment: "englarged kidney" - ENDOCRINE/METABOLIC Hx Endocrine Disorders: Yes Hx Systemic Lupus Erythematosus: Yes - HEMATOLOGICAL/ONCOLOGICAL Hx Blood Disorders: Yes Hx Anemia: Yes Hx Cancer: Yes (breast, lung, MDS) Hx Sickle Cell Disease: Yes Hx Unexplained Bleeding: Yes (Epitaxis) Other/Comment: SLE - INTEGUMENTARY Hx Dermatological Problems: No - MUSCULOSKELETAL/RHEUMATOLOGICAL Hx Musculoskeletal Disorders: Yes Hx Back Pain: Yes Hx Falls: Yes Hx Unsteady Gait: Yes - GASTROINTESTINAL Hx Gastrointestinal Disorders: Yes (CONSTIPATION,WEIGHT LOSS 14 LBS .) Other/Comment: gall stones - GENITOURINARY/GYNECOLOGICAL Hx Genitourinary Disorders: No - PSYCHIATRIC Hx Psychophysiologic Disorder: Yes Hx Anxiety: Yes - SURGICAL HISTORY Hx Surgeries: Yes Hx Mastectomy: No (R lumpectomy) Other/Comment: L foot sx, tonsilectomy - ANESTHESIA Hx Anesthesia: Yes Hx Anesthesia Reactions: No Hx Malignant Hyperthermia: No Meds Allergies/Adverse Reactions: Allergies Allergy/AdvReac Type Severity Reaction Status Date / Time No Known Allergies Allergy Verified 08/07/18 19:04 - Medications Medications: Current Medications Acetaminophen (Tylenol 325mg Tab) 650 mg PO Q6H PRN PRN Reason: Fever >100.4 F Last Admin: 08/07/18 18:31 Dose: 650 mg Albuterol Sulfate (Albuterol 0.083% Inhal Raysa (2.5 Mg/3 Ml) Ud) 2.5 mg IH [id number] [facility] Amlodipine Besylate (Norvasc) 10 mg PO DAILY [facility] Arformoterol Tartrate (Brovana) 15 mcg IH [id number] [facility] Last Admin: 08/08/18 08:16 Dose: 15 mcg Atenolol (Tenormin) 25 mg PO BID KAYLEIGH Last Admin: 08/07/18 18:52 Dose: 25 mg Budesonide (Pulmicort Respules) 0.5 mg IH BIDRESP KAYLEIGH Last Admin: 08/08/18 08:16 Dose: 0.5 mg Clonazepam (Klonopin) 0.5 mg PO BID KAYLEIGH; Protocol Last Admin: 08/07/18 18:52 Dose: 0.5 mg Ergocalciferol (Drisdol 50,000 Intl Units Cap) 1 cap PO SUN [facility] Sodium Chloride (Sodium Chloride 0.9%) 1,000 mls @ 100 mls/hr IV .Q10H KAYLEIGH Last Admin: 08/08/18 03:48 Dose: 100 mls/hr Meropenem (Merrem Iv 1 Gm Premix) 1 gm in 50 mls @ 100 mls/hr IVPB Q8 KAYLEIGH; Pr otocol Stop: 08/16/18 22:01 Last Admin: 08/08/18 05:01 Dose: 100 mls/hr Vancomycin HCl (Vancomycin 1gm) 1 gm in 250 mls @ 167 mls/hr IVPB Q12 [facility]; Protocol Stop: 08/16/18 22:01 Last Admin: 08/07/18 21:51 Dose: 167 mls/hr Loratadine (Claritin) 10 mg PO DAILY [facility] Losartan Potassium (Cozaar) 50 mg PO QPM [facility] Last Admin: 08/07/18 18:52 Dose: 50 mg Magnesium Oxide (Mag-Ox) 400 mg PO BID [facility] Last Admin: 08/07/18 18:52 Dose: 400 mg Mirtazapine (Remeron) 15 mg PO HS [facility] Last Admin: 08/07/18 21:50 Dose: 15 mg Montelukast Sodium (Singulair) 10 mg PO DAILY [facility] Nicotine (Nicoderm Cq) 1 patch TD DAILY [facility] Last Admin: 08/07/18 17:17 Dose: 1 patch Non-Formulary Medication (Vitamin B Complex [Super B-50 Complex]) 1 cap PO DAILY [facility] Oxycodone/Acetaminophen (Percocet 5/325 Mg Tab) 1 tab PO Q6H [facility] Stop: 08/10/18 16:31 Last Admin: 08/08/18 05:31 Dose: 1 tab Pantoprazole Sodium (Protonix Ec Tab) 40 mg PO DAILY [facility] Last Admin: 08/07/18 17:18 Dose: 40 mg Potassium Chloride (K-Dur 20 Meq Er Tab) 20 meq PO DAILY [facility] Sodium Chloride ([place] Nasal [place]) 0 ml NS QID [facility] Last Admin: 08/08/18 01:15 Dose: 2 sprays Tiotropium Gregory (Spiriva) 18 mcg INH DAILY [facility] Physical Exam - Constitutional Appears: Non-toxic, No Acute Distress, Cachectic, Chronically Ill - Head Exam Head Exam: ATRAUMATIC, NORMAL INSPECTION - Eye Exam Eye Exam: Normal appearance, PERRL - ENT Exam ENT Exam: Mucous Membranes Moist, Normal Exam - Neck Exam Neck exam: Positive for: Full Rom, Normal Inspection - Respiratory Exam Respiratory Exam: Clear to Auscultation Bilateral, NORMAL BREATHING PATTERN - Cardiovascular Exam Cardiovascular Exam: Tachycardia, +S1, +S2 - GI/Abdominal Exam GI & Abdominal Exam: Hypoactive Bowel Sounds, Soft. absent: Distended, Ten derness - Extremities Exam Extremities exam: Positive for: normal inspection. Negative for: pedal edema - Neurological Exam Neurological exam: Alert, Oriented x3 - Skin Skin Exam: Normal Color, Warm Results - Vital Signs Recent Vital Signs: Last Vital Signs Temp 102.3 F H 08/08/18 06:50 Pulse 109 H 08/08/18 03:46 Resp 20 08/08/18 03:46 BP 145/78 08/08/18 03:46 Pulse Ox 100 08/08/18 02:22 - Labs Result Diagrams: 08/08/18 09:30 08/08/18 09:30 Labs: Laboratory Results - last 24 hr 08/07/18 08/07/18 08/07/18 15:20 18:54 19:30 Lactic Acid 0.7 Urine Color Urine Appearance Urine pH Ur Specific [place] Urine Protein Urine Glucose (UA) Urine Ketones Urine Blood Urine Nitrate Urine Bilirubin Urine Urobilinogen Ur Leukocyte Esterase Urine RBC Urine WBC Ur Epithelial Cells Urine Bacteria Influenza Typ A,B (EIA) Negative for flu a/b Blood Type B POSITIVE Antibody Screen Negative BBK History Checked Patient has bt 08/08/18 01:23 Lactic Acid Urine Color Yellow Urine Appearance Clear Urine pH 6.0 Ur Specific [place] 1.020 Urine Protein Trace H Urine Glucose (UA) Negative Urine Ketones Trace H Urine Blood Negative Urine Nitrate Negative Urine Bilirubin Negative Urine Urobilinogen 1.0 H Ur Leukocyte Esterase Negative Urine RBC 0 - 2 Urine WBC 1 - 3 Ur Epithelial Cells 1 - 3 Urine Bacteria Rare Influenza Typ A,B (EIA) Blood Type Antibody Screen BBK History Checked Assessment & Plan - Assessment and Plan (Free Text) Assessment: 53 year old female with a PMH of MDS (high grade, s/p chemotherapy), immunosuppression, lung cancer (s/p lobectomy, 2017), breast cancer s/p R breast mastectomy (2004), COPD, and endocarditis who is admitted for fevers. Patient complaining of mild abdominal pain. Labs were reviewed. Plan: - CT abd/pelvis ordered to evaluate for GI cause of fevers - monitor H/H - Abx per ID - Heme/Onc following the patient - cont current diet; monitor for nausea - further recs per Dr. Dela Cruz Case was reviewed and discussed with Dr. Dela Cruz <Efrem Dela Cruz V - Last Filed: 08/08/18 23:01> Meds - Medications Medications: Current Medications Acetaminophen (Tylenol 325mg Tab) 650 mg PO Q4H PRN PRN Reason: Fever >100.4 F Last Admin: 08/08/18 17:08 Dose: 650 mg Albuterol/Ipratropium (Duoneb 3 Mg/0.5 Mg (3 Ml) Ud) 3 ml IH [id number] PRN PRN Reason: Shortness of Breath Amlodipine Besylate (Norvasc) 10 mg PO DAILY [facility] Last Admin: 08/08/18 11:47 Dose: 10 mg Arformoterol Tartrate (Brovana) 15 mcg IH [id number] [facility]IGH Last Admin: 08/08/18 21:25 Dose: 15 mcg Atenolol (Tenormin) 25 mg PO BID KAYLEIGH Last Admin: 08/08/18 18:06 Dose: 25 mg Budesonide (Pulmicort Respules) 0.5 mg IH BIDRESP [facility] Last Admin: 08/08/18 21:25 Dose: 0.5 mg Clonazepam (Klonopin) 0.5 mg PO BID [facility]; Protocol Last Admin: 08/08/18 18:05 Dose: 0.5 mg Ergocalciferol (Drisdol 50,000 Intl Units Cap) 1 cap PO SUN [facility] Sodium Chloride (Sodium Chloride 0.9%) 1,000 mls @ 100 mls/hr IV .Q10H [facility] Last Admin: 08/08/18 22:16 Dose: 100 mls/hr Meropenem (Merrem Iv 1 Gm Premix) 1 gm in 50 mls @ 100 mls/hr IVPB Q8 [facility]; Pro tocol Stop: 08/16/18 22:01 Last Admin: 08/08/18 22:15 Dose: 100 mls/hr Vancomycin HCl (Vancomycin 1gm) 1 gm in 250 mls @ 167 mls/hr IVPB Q12 [facility]; Protocol Stop: 08/16/18 22:01 Last Admin: 08/08/18 22:16 Dose: 167 mls/hr Loratadine (Claritin) 10 mg PO DAILY [facility] Last Admin: 08/08/18 11:45 Dose: 10 mg Losartan Potassium (Cozaar) 50 mg PO QPM [facility] Last Admin: 08/08/18 18:04 Dose: 50 mg Magnesium Oxide (Mag-Ox) 400 mg PO BID [facility]IGH Last Admin: 08/08/18 18:05 Dose: 400 mg Mirtazapine (Remeron) 15 mg PO HS [facility] Last Admin: 08/08/18 22:15 Dose: 15 mg Montelukast Sodium (Singulair) 10 mg PO DAILY [facility] Last Admin: 08/08/18 11:48 Dose: 10 mg Nicotine (Nicoderm Cq) 1 patch TD DAILY [facility] Last Admin: 08/08/18 11:46 Dose: 1 patch Non-Formulary Medication (Vitamin B Complex [Super B-50 Complex]) 1 cap PO DAILY [facility] Last Admin: 08/08/18 11:49 Dose: Not Given Ondansetron HCl (Zofran Inj) 4 mg IVP Q6H PRN PRN Reason: Nausea/Vomiting Oxycodone/Acetaminophen (Percocet 5/325 Mg Tab) 1 tab PO Q6H [facility] Stop: 08/10/18 16:31 Last Admin: 08/08/18 22:15 Dose: 1 tab Pantoprazole Sodium (Protonix Ec Tab) 40 mg PO DAILY [facility] Last Admin: 08/08/18 11:48 Dose: 40 mg Potassium Chloride (K-Dur 20 Meq Er Tab) 20 meq PO DAILY [facility] Last Admin: 08/08/18 11:45 Dose: 20 meq Sodium Chloride ([place] Nasal [place]) 0 ml NS QID [facility] Last Admin: 08/08/18 22:24 Dose: Not Given Tiotropium Gregory (Spiriva) 18 mcg INH DAILY [facility] Last Admin: 08/08/18 11:48 Dose: 18 mcg Results - Vital Signs Recent Vital Signs: Last Vital Signs Temp 102.4 F H 08/08/18 18:08 Pulse 118 H 08/08/18 18:06 Resp 20 08/08/18 06:00 BP 107/67 08/08/18 18:06 Pulse Ox 99 08/08/18 06:00 - Labs Result Diagrams: 08/08/18 09:30 08/08/18 09:30 Labs: Laboratory Results - last 24 hr 08/07/18 08/08/18 08/08/18 18:54 01:23 09:30 WBC 6.1 RBC 2.88 L Hgb 8.3 L Hct 26.2 L MCV 91.0 MCH 28.8 MCHC 31.7 RDW 14.9 H Plt Count 30 L* MPV 8.9 Neutrophils % (Manual) 38 L Band Neutrophils % 1 Lymphocytes % (Manual) 20 L Monocytes % (Manual) 8 H Eosinophils % (Manual) 33 H Platelet Evaluation Low Sodium Potassium Chloride Carbon Dioxide Anion Gap BUN Creatinine Est GFR ( Amer) Est GFR (Non-Af Amer) Random Glucose Calcium Total Bilirubin AST ALT Alkaline Phosphatase Total Protein Albumin Globulin Albumin/Globulin Ratio Urine Color Yellow Urine Appearance Clear Urine pH 6.0 Ur Specific [place] 1.020 Urine Protein Trace H Urine Glucose (UA) Negative Urine Ketones Trace H Urine Blood Negative Urine Nitrate Negative Urine Bilirubin Negative Urine Urobilinogen 1.0 H Ur Leukocyte Esterase Negative Urine RBC 0 - 2 Urine WBC 1 - 3 Ur Epithelial Cells 1 - 3 Urine Bacteria Rare Blood Type B POSITIVE Antibody Screen Negative BBK History Checked Patient has bt 08/08/18 09:30 WBC RBC Hgb Hct MCV MCH MCHC RDW Plt Count MPV Neutrophils % (Manual) Band Neutrophils % Lymphocytes % (Manual) Monocytes % (Manual) Eosinophils % (Manual) Platelet Evaluation Sodium 139 Potassium 3.2 L Chloride 105 Carbon Dioxide 27 Anion Gap 10 BUN 10 Creatinine 0.7 Est GFR ( Amer) > 60 Est GFR (Non-Af Amer) > 60 Random Glucose 82 Calcium 8.6 Total Bilirubin 1.6 H AST 29 ALT 25 Alkaline Phosphatase 119 Total Protein 6.4 Albumin 2.9 L Globulin 3.5 Albumin/Globulin Ratio 0.8 L Urine Color Urine Appearance Urine pH Ur Specific [place] Urine Protein Urine Glucose (UA) Urine Ketones Urine Blood Urine Nitrate Urine Bilirubin Urine Urobilinogen Ur Leukocyte Esterase Urine RBC Urine WBC Ur Epithelial Cells Urine Bacteria Blood Type Antibody Screen BBK History Checked Attending/Attestation - Attestation I have personally seen and examined this patient.: Yes I have fully participated in the care of the patient.: Yes I have reviewed all pertinent clinical information: Yes Notes (Text): This is an addendum to the GI progress report dictated by the resident. The patient was seen and evaluated here earlier along with resident. Patient admitted with abdominal pain fever. History of myelo dysplastic syndrome in transition to leukemia status post chemo Patient also has thrombocytopenia. History of C. difficile in the past history of nosocomial pneumonia. Etiology for abdominal discomfort and fever and unclear I would recommend CT of the abdomen and pelvis with the p.o. contrast to further evaluate. Previous sonogram was limited due to contracted gallbladder however the CBD was normal. follow-up the cultures and continue antibiotics as per ID. CT of the chest was reviewed 08/08/18 22:57
[2018-08-08 09:57] LABS: ALB/GLOB RATIO 0.8 (1.1-1.8); ALBUMIN 2.9 g/dL (3.0-4.8); ALT/SGPT 25 U/L (7-56); AST/SGOT 29 U/L (14-36); BLOOD UREA NITROGEN 10 mg/dL (7-21); CALCIUM 8.6 mg/dL (8.4-10.5); GFR NON-AFRICAN AMERICAN > 60
[2018-08-08 10:06] LABS: PLATELET COUNT 30 10^3/uL (120.0-450.0)
[2018-08-08] MEDS ORDERED: Potassium Chloride 40 mEq/30 ml LIQ UD PO ONE (10:14)
[2018-08-08 10:45] LABS: BAND 1 % (0-2); LYMPHOCYTE 20 % (22.0-35.0); MONOCYTE 8 % (1.0-6.0); NEUTROPHIL 38 % (50.0-70.0)
[2018-08-08 10:46] LABS: EOSINOPHIL 33 % (0.0-3.0); PLATELET ESTIMATE LOW (NORMAL)
[2018-08-08] MEDS: Potassium Chloride 20 mEq ER Tab PO SCH (11:45)
[2018-08-08] MEDS: Magnesium Oxide 400 mg Tab UD PO SCH ×2 (11:46→18:05)
[2018-08-08] MEDS: Pantoprazole 40 mg EC Tab PO SCH (11:48)
[2018-08-08] MEDS: Tiotropium 18 mcg Cap For Inhalation INH SCH (11:48)
[2018-08-08] MEDS: Vancomycin 1gm in NS 250ml 1 GM/250 ML BAG IVPB SCH ×2 (11:49→22:16)
[2018-08-08] MEDS: Non Formulary Medication (Vitamin B Complex [Super B-50 Complex] 1 CAP) PO SCH (11:49)
--- NOTE | 2018-08-08 12:36 | CT ---
Date of service: 08/08/2018 PROCEDURE: CT Chest without contrast HISTORY: immunocompromised, sepsis, no clear source COMPARISON: CT 07/16/2018 TECHNIQUE: Contiguous axial images were obtained through the chest without intravenous contrast enhancement. Sagittal and coronal reconstructions were performed. Radiation dose: Total exam DLP = 194.82 mGy-cm. This CT exam was performed using one or more of the following dose reduction techniques: Automated exposure control, adjustment of the mA and/or kV according to patient size, and/or use of iterative reconstruction technique. FINDINGS: LUNGS: No change from prior study. There is a suture line in the right lung apex and scarring in the left lung apex. Large bulla are seen bilaterally consistent with emphysema. There is no focal infiltrate or consolidation MEDIASTINUM: Unremarkable thoracic aorta. No aneurysm. Normal sized heart. Main pulmonary artery unremarkable. No vascular congestion. No lymphadenopathy. No aortic atherosclerotic calcification. PLEURA: Small bilateral pleural effusions BONES: No fracture. No destructive lesion. UPPER ABDOMEN: Grossly unremarkable. OTHER FINDINGS: None. IMPRESSION: No acute intrathoracic findings
[2018-08-08] MEDS ORDERED: Potassium Chloride 20 mEq ER Tab PO ONE (13:43)
[2018-08-08] MEDS ORDERED: Albuterol-Ipratrop 3 mg / 0.5 (3 ml) UD IH PRN ×2 (14:05→14:07)
[2018-08-08] MEDS ORDERED: Barium Sulfate Susp 2.1% w/v, 2.0% w/w 450 mL Bottle PO ONE (14:19)
--- NOTE | 2018-08-08 15:52 | CON ---
DATE: 08/08/2018 PULMONARY CONSULT NOTE REFERRING PHYSICIAN: Dr. August Lara. REASON FOR CONSULT: Cough, shortness of breath, COPD, and fever. HISTORY OF PRESENT ILLNESS: This is a 53-year-old female known to us from previous admission with past medical history significant for leukemia, neutropenia, thrombocytopenia, asthma, sickle cell, right breast mastectomy, depression, COPD, and history of lung transplant. The patient presented to emergency room for evaluation of fever. Reports she was in the hospital to get platelets due to low platelet level when she was found to have elevated temperature. Admitted to ensure fever was not infection. While in the emergency room, the patient reports abdominal pain. Today, the patient is seen lying in bed. Reports having cough, shortness of breath; states that she feels tired. Does report having abdominal pain. Denies dysuria; reports having bowel movements. No diarrhea. No constipation. PAST MEDICAL HISTORY: As per history of present illness. ALLERGIES: NO KNOWN ALLERGIES. FAMILY HISTORY: Mother had pancreatic gastric cancer. Father had ID. SOCIAL HISTORY: No EtOH abuse. No illicit drug use. Former smoker, quit in July 2018. MEDICATIONS: Reviewed. Tylenol 650 mg every 4 hours p.r.n. for fever greater than 100.4, albuterol 2.5 mg inhalation every 6 hours, Norvasc 10 mg daily, Brovana 15 mcg every 12 hours, atenolol 25 mg twice a day, Pulmicort 0.5 mg inhalation twice a day, Klonopin 0.5 mg twice a day, ergocalciferol 50,000 units weekly, Claritin 10 mg daily, Cozaar 50 mg in the evening, magnesium oxide 400 mg twice a day, meropenem 1 g every 8 hours, Remeron 15 mg at bedtime, Singulair 10 mg daily, nicotine patch transdermal daily, vitamin B complex 1 cap daily, Zofran 4 mg IV push every 6 hours p.r.n., Percocet 5/325 mg 1 tab every 6 hours, Protonix 40 mg daily, potassium chloride 20 mEq daily, sodium chloride 1000 mL at 100 mL per hour, [place] nasal spray four times a day, Spiriva 18 mcg inhalation daily, and vancomycin 1 g every 12 hours. REVIEW OF SYSTEMS: No headache, rhinitis, chest pain, nausea, vomiting, diarrhea, constipation, leg pain, or leg swelling reported. The patient reports feeling just weak and tired. Reports fever, shortness of breath, cough and reporting abdominal pain. PHYSICAL EXAMINATION: GENERAL: No acute distress. VITAL SIGNS: Blood pressure 112/68, pulse 109, temperature 100.4, and oxygen saturation 100% on room air. HEENT: Moist mucous membranes. Mallampati score of 4. Crowded airway. NECK: Supple. No JVD. RESPIRATORY: Few rhonchi; decreased breath sounds. CARDIOVASCULAR: S1 and S2. ABDOMEN: Mild tenderness on palpation to bilateral lower quadrant; positive bowel sounds; soft. No distention. EXTREMITIES: No bilateral lower extremity edema. NEUROLOGIC: Awake, alert, and verbal. Following commands. LABORATORY DATA: Reviewed. WBC 6.1, RBC 2.88, hemoglobin 8.3, hematocrit 26.2, and platelets 30. Sodium 139, potassium 3.2, chloride 105, carbon dioxide 27, anion gap 10, BUN 10, creatinine 0.7, GFR is greater than 60, random glucose 82, lactic acid 0.7, calcium 8.6, total bilirubin 1.6, AST 29, ALT 25, alkaline phosphatase 119, total protein 6.4, albumin 2.9, globulin 3.5, and albumin-globulin ratio 0.8. Urinalysis shows urine protein trace, urine ketones trace, urine bilinogen 1. Influenza type A and B negative. Chest x-ray shows no active pulmonary disease, COPD. EKG; sinus tachycardia by atrial enlargement, left ventricular hypertrophy. Chest CT shows no acute intrathoracic findings. No change from prior study large bullae seen bilaterally consistent with emphysema. No focal infiltrate or consolidation. Procalcitonin done on 08/07/2018 shows 1.41. IMPRESSION AND PLAN: Sepsis, healthcare-associated pneumonia, procalcitonin positive of 1.41, high-grade myelodysplastic syndrome, lung cancer status post lobectomy, thrombocytopenia, anemia, sickle cell anemia, asthma, and chronic obstructive pulmonary disease. Continue inhaled bronchodilators, gastric prophylaxis, and leukotriene inhibitors. Continue antibiotic therapy per Infectious Disease. We will order abdominal pelvis CAT scan with contrast to the complaint of abdominal pain. We will order stool for Clostridium difficile. We will discontinue albuterol; place the patient on p.r.n. DuoNeb. We recommend full pulmonary function test and sleep study as outpatient. We will add sequential compression devices to bilateral lower extremity for deep venous thrombosis prophylaxis as the patient cannot be on chemical prophylaxis due to anemia status. This patient was seen and examined with Dr. Maurer. Discussed assessment and plan as described above. This patient was seen and examined with Henry Marquez, nurse practitioner. Discussed assessment and plan as described above. Thank you for this consult. We will follow with you. Henry Marquez APN Solange Maurer MD MTDJatin
--- NOTE | 2018-08-08 20:26 | PN ---
DATE: 08/08/2018 SUBJECTIVE: Patient is seen today. She seems comfortable. She still feels weak. Still fever of 102. Currently on antibiotic, IV fluids. PHYSICAL EXAMINATION GENERAL: Temperature 102.4, heart rate is 118, blood pressure 107/67, respiration 18. HEAD AND NECK: Normal. No JVD, no thyromegaly. CHEST: Clear bilateral. CARDIAC: First sound and second sound normal. ABDOMEN: Soft, mild general tenderness. EXTREMITIES: No edema. NEUROLOGICAL: Normal. LABORATORY STUDIES: It shows the following here; sodium 139, potassium 3.2, chloride 105, bicarbonate 27, BUN 10, creatinine 0.7, total bilirubin 1.6. AST, ALT, alk phos is normal. Calcium 8.6, lactic acid 0.7. IMPRESSION AND PLAN: 1. This is fever, etiology unclear. Blood cultures x2 is negative. We are still waiting for the other cultures and we will get a CT abdomen and CT chest today. We will follow up with GI consult who will see the patient. 2. Thrombocytopenia. Dr. Lopez on the case, will follow up on that. 3. Hypertension, stable, continue current medications. 4. Chronic obstructive pulmonary disease, continue inhaled bronchodilators. 5. Abdominal discomfort to rule out intraabdominal bleeding. CT abdomen. Continue Protonix. Follow up clinically. Patient has bad prognosis. She has acute myeloid leukemia with severe thrombocytopenia, sepsis. Discussed with the family about it. Continue current treatment. Currently, she is on Merrem IV and vancomycin 1 g every 12 hours. August Lara MD
--- NOTE | 2018-08-08 22:59 | HP ---
DATE OF EXAM: 08/07/2018 The patient was sent from Oncology Clinic, Dr. Lopez, the patient to emergency room because of fever 102 and low platelets. HISTORY OF PRESENT ILLNESS: This is a 53-year-old female with history of previous cancers before she did have a breast cancer in the past, a lung tumor was resected before, and pneumothorax in the past. 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 Lopez. Recently, she was admitted in the hospital with severe sepsis syndrome in ICU that was like 2 weeks ago or more. She was treated with antibiotic and improved and her thrombocytopenia was treated with multiple platelet transfusions. She seems did well and she was discharged, but she came back today because of fever 102. She denied any cough. She did complain of general abdominal pain and no other complaints. No diarrhea. PAST MEDICAL HISTORY: As I mentioned above. She does have history of cancer, acute myeloid leukemia, was recently treated and not a candidate for bone marrow transplant. She has a COPD and hypertension. 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 ALLERGIES: SHE HAS NO KNOWN ALLERGY. FAMILY HISTORY: Positive for cancers in the family. SOCIAL HISTORY: She smoke, but recently a Nicorette patch seem taken it and no drinking. REVIEW OF SYSTEMS: As in the present illness. She is generally weak. She complain of back pain, bone pain, cough, and dyspnea. PHYSICAL EXAMINATION: VITAL SIGNS: Temperature was 102, heart rate 106, blood pressure 115/51, respirations 20, and saturation 99% on room air. HEAD AND NECK: Normal. No JVD. No thyromegaly. CHEST: Clear bilaterally. CARDIAC: First sound and second sound normal. No murmur, rub or gallop. ABDOMEN: Mild general tenderness, more in epigastric area. EXTREMITIES: No edema. NEUROLOGICAL: She moves all extremities. She is alert, awake, and oriented x3. LABORATORY DATA: Laboratory study from the clinic was done as outpatient, it shows the following, on 08/07/2018 shows white count 7.4, hemoglobin 10.1, hematocrit 31, and platelets 7. Chemistry shows sodium 138, potassium 3.9, chloride 101, bicarb 28, BUN 14, creatinine 0.8, and blood sugar 117. Liver functions test is normal except slight elevation in alk phos. Urine shows normal 0-2 red blood cells and 1-3 white blood cells. PT and PTT and was normal. Serology influenza A and B was negative. IMPRESSION AND PLAN: This is a 53-year-old female with history of: 1. 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 We will admit the patient for sepsis. We will give the patient vancomycin and Merrem. Infectious Disease consult. Admit the patient to medical floor. IV fluid and we will get her blood cultures and urine cultures. 2. Mild abdominal pain. We will give the patient Protonix. Gastrointestinal consult, possible we will get more tests after gastrointestinal evaluations. 3. Bone marrow failure, thrombocytopenia. Dr. Lopez, Oncology on the case, would transfuse platelets . We will follow up his recommendations. 4. Hypertension, continue Cozaar, Norvasc and we will continue to monitor her condition. 5. Chronic obstructive pulmonary disease. Continue Nicorette patch, Brovana, and Pulmicort nebulizers. Follow up clinically. The patient's condition is critical. Poor prognosis with multiple medical problems, bone marrow failure, acute myeloid leukemia, sepsis, all these put the patient at risk. I discussed with her daughter. We did discuss the code status that she need full code, so we will continue and we will do everything for the patient. We will follow up with the family and the patient as the case progress. August Lara MD
--- NOTE | 2018-08-09 03:42 | CP.PCM.PN ---
Subjective - Date & Time of Evaluation Date of Evaluation: 08/09/18 Time of Evaluation: 03:37 - Subjective Subjective: Patient was seen because I was asked to co-sign order of Lopermide 4 mg PO x 1. She complains of loose bowel movement, this one is the sixth one. Had nausea but subsided after she received Zofran. Has no other complaints now.Denies stomach pain. Medical record was reviewed. This 53 year old woman is admitted with fever. Has PMH of recent sepsis,breast cancer , lung tumor resection, pneumothorax, COPD,HTN, AML, thrombocytopenia. Objective - Vital Signs/Intake and Output Vital Signs (last 24 hours): Temp Pulse Resp BP Pulse Ox 98.5 F 118 H 20 107/67 99 08/09/18 01:15 08/08/18 18:06 08/08/18 06:00 08/08/18 18:06 08/08/18 06:00 Intake and Output: 08/08/18 08/09/18 18:59 06:59 Intake Total 1140 Output Total 1140 Balance 0 - Medications Medications: Current Medications Acetaminophen (Tylenol 325mg Tab) 650 mg PO Q4H PRN PRN Reason: Fever >100.4 F Last Admin: 08/08/18 17:08 Dose: 650 mg Albuterol/Ipratropium (Duoneb 3 Mg/0.5 Mg (3 Ml) Ud) 3 ml IH [id number] PRN PRN Reason: Shortness of Breath Amlodipine Besylate (Norvasc) 10 mg PO DAILY [facility] Last Admin: 08/08/18 11:47 Dose: 10 mg Arformoterol Tartrate (Brovana) 15 mcg IH [id number] [facility] Last Admin: 08/08/18 21:25 Dose: 15 mcg Atenolol (Tenormin) 25 mg PO BID [facility] Last Admin: 08/08/18 18:06 Dose: 25 mg Budesonide (Pulmicort Respules) 0.5 mg IH BIDRESP [facility] Last Admin: 08/08/18 21:25 Dose: 0.5 mg Clonazepam (Klonopin) 0.5 mg PO BID [facility]; Protocol Last Admin: 08/08/18 18:05 Dose: 0.5 mg Ergocalciferol (Drisdol 50,000 Intl Units Cap) 1 cap PO SUN [facility] Sodium Chloride (Sodium Chloride 0.9%) 1,000 mls @ 100 mls/hr IV .Q10H [facility] Last Admin: 08/08/18 22:16 Dose: 100 mls/hr Meropenem (Merrem Iv 1 Gm Premix) 1 gm in 50 mls @ 100 mls/hr IVPB Q8 [facility]; Protocol Stop: 08/16/18 22:01 Last Admin: 08/08/18 22:15 Dose: 100 mls/hr Vancomycin HCl (Vancomycin 1gm) 1 gm in 250 mls @ 167 mls/hr IVPB Q12 [facility]; Protocol Stop: 08/16/18 22:01 Last Admin: 08/08/18 22:16 Dose: 167 mls/hr Loratadine (Claritin) 10 mg PO DAILY [facility] Last Admin: 08/08/18 11:45 Dose: 10 mg Losartan Potassium (Cozaar) 50 mg PO QPM [facility] Last Admin: 08/08/18 18:04 Dose: 50 mg Magnesium Oxide (Mag-Ox) 400 mg PO BID [facility] Last Admin: 08/08/18 18:05 Dose: 400 mg Mirtazapine (Remeron) 15 mg PO HS [facility] Last Admin: 08/08/18 22:15 Dose: 15 mg Montelukast Sodium (Singulair) 10 mg PO DAILY [facility] Last Admin: 08/08/18 11:48 Dose: 10 mg Nicotine (Nicoderm Cq) 1 patch TD DAILY [facility] Last Admin: 08/08/18 11:46 Dose: 1 patch Non-Formulary Medication (Vitamin B Complex [Super B-50 Complex]) 1 cap PO DAILY [facility] Last Admin: 08/08/18 11:49 Dose: Not Given Ondansetron HCl (Zofran Inj) 4 mg IVP Q6H PRN PRN Reason: Nausea/Vomiting Oxycodone/Acetaminophen (Percocet 5/325 Mg Tab) 1 tab PO Q6H [facility] Stop: 08/10/18 16:31 Last Admin: 08/08/18 22:15 Dose: 1 tab Pantoprazole Sodium (Protonix Ec Tab) 40 mg PO DAILY [facility] Last Admin: 08/08/18 11:48 Dose: 40 mg Potassium Chloride (K-Dur 20 Meq Er Tab) 20 meq PO DAILY [facility] Last Admin: 08/08/18 11:45 Dose: 20 meq Sodium Chloride ([place] Nasal [place]) 0 ml NS QID [facility] Last Admin: 08/08/18 22:24 Dose: Not Given Tiotropium [place] (Spiriva) 18 mcg INH DAILY [facility] Last Admin: 08/08/18 11:48 Dose: 18 mcg - Labs Labs: 08/08/18 09:30 08/08/18 09:30 - Constitutional Appears: Other (Thin , malnourisehd patinet.) - Head Exam Head Exam: ATRAUMATIC, NORMAL INSPECTION, NORMOCEPHALIC - Eye Exam Eye Exam: Normal appearance - ENT Exam ENT Exam: Normal External Ear Exam - Neck Exam Neck Exam: Normal Inspection - Respiratory Exam Respiratory Exam: NORMAL BREATHING PATTERN - Cardiovascular Exam Cardiovascular Exam: absent: JVD - GI/Abdominal Exam GI & Abdominal Exam: absent: Distended - Rectal Exam Rectal Exam: Deferred - Exam Additional comments: Deferred. - Extremities Exam Extremities Exam: Normal Inspection - Back Exam Back Exam: NORMAL INSPECTION - Neurological Exam Neurological Exam: Alert, Awake, Oriented x3 - Psychiatric Exam Psychiatric exam: Normal Affect, Normal Mood - Skin Skin Exam: Normal Color Assessment and Plan - Assessment and Plan (Free Text) Assessment: Diarrhoea. Recent sepsis. AML. Breast cancer. S/P Lung tumor resection. COPD. HTN. Plan: Lopermide 4 mg PO now. Continue management as per PMD. Stool for C.Diff. Hydration to be encouraged.
[2018-08-09] MEDS: Meropenem IV 1 gm in NS 1 GM/50 ML BAG IVPB SCH ×3 (05:52→21:40)
[2018-08-09] MEDS: Sodium Chloride 0.9% 1,000 ML IV SCH (05:54)
[2018-08-09] MEDS: Oxycodone/Acetaminophen 5/325 mg Tab PO SCH ×4 (05:54→21:39)
--- NOTE | 2018-08-09 07:42 | CP.PCM.PN ---
Subjective - Date & Time of Evaluation Date of Evaluation: 08/09/18 Time of Evaluation: 07:42 - Subjective Subjective: Christopher Roberson DO, PGY-1 Hematology/Oncology Progress Note for Dr. Lopez Patient was seen and examined at bedside this AM. She reports worsening loose stools since yesterday and states she is still generally not feeling well. She remained afebrile overnight but is febrile again this morning with Tmax of 102.1. She states she had nausea last night that improved with zofran. She otherwise has no additional complaints and denies CP, SOB, vomiting, dysuria, or urinary frequency. Objective - Vital Signs/Intake and Output Vital Signs (last 24 hours): Temp Pulse Resp BP Pulse Ox 102.9 F H 118 H 20 107/67 99 08/09/18 05:52 08/08/18 18:06 08/08/18 06:00 08/08/18 18:06 08/08/18 06:00 Intake and Output: 08/09/18 08/09/18 06:59 18:59 Intake Total 1140 0 Output Total 1140 Balance 0 0 - Medications Medications: Current Medications Acetaminophen (Tylenol 325mg Tab) 650 mg PO Q4H PRN PRN Reason: Fever >100.4 F Last Admin: 08/09/18 05:52 Dose: 650 mg Albuterol/Ipratropium (Duoneb 3 Mg/0.5 Mg (3 Ml) Ud) 3 ml IH [id number] PRN PRN Reason: Shortness of Breath Amlodipine Besylate (Norvasc) 10 mg PO DAILY [facility] Last Admin: 08/08/18 11:47 Dose: 10 mg Arformoterol Tartrate (Brovana) 15 mcg IH [id number] [facility] Last Admin: 08/08/18 21:25 Dose: 15 mcg Atenolol (Tenormin) 25 mg PO BID [facility] Last Admin: 08/08/18 18:06 Dose: 25 mg Budesonide (Pulmicort Respules) 0.5 mg IH BIDRESP [facility] Last Admin: 08/08/18 21:25 Dose: 0.5 mg Clonazepam (Klonopin) 0.5 mg PO BID [facility]; Protocol Last Admin: 08/08/18 18:05 Dose: 0.5 mg Ergocalciferol (Drisdol 50,000 Intl Units Cap) 1 cap PO SUN [facility] Sodium Chloride (Sodium Chloride 0.9%) 1,000 mls @ 100 mls/hr IV .Q10H [facility] Last Admin: 08/09/18 05:54 Dose: 100 mls/hr Meropenem (Merrem Iv 1 Gm Premix) 1 gm in 50 mls @ 100 mls/hr IVPB Q8 [facility]; Protocol Stop: 08/16/18 22:01 Last Admin: 08/09/18 05:52 Dose: 100 mls/hr Vancomycin HCl (Vancomycin 1gm) 1 gm in 250 mls @ 167 mls/hr IVPB Q12 [facility]; Protocol Stop: 08/16/18 22:01 Last Admin: 08/08/18 22:16 Dose: 167 mls/hr Levofloxacin/Dextrose (Levaquin 750mg) 750 mg in 150 mls @ 100 mls/hr IVPB DAILY [facility]; Protocol Loratadine (Claritin) 10 mg PO DAILY [facility] Last Admin: 08/08/18 11:45 Dose: 10 mg Losartan Potassium (Cozaar) 50 mg PO QPM [facility] Last Admin: 08/08/18 18:04 Dose: 50 mg Magnesium Oxide (Mag-Ox) 400 mg PO BID [facility] Last Admin: 08/08/18 18:05 Dose: 400 mg Mirtazapine (Remeron) 15 mg PO HS [facility] Last Admin: 08/08/18 22:15 Dose: 15 mg Montelukast Sodium (Singulair) 10 mg PO DAILY [facility] Last Admin: 08/08/18 11:48 Dose: 10 mg Nicotine (Nicoderm Cq) 1 patch TD DAILY [facility] Last Admin: 08/08/18 11:46 Dose: 1 patch Non-Formulary Medication (Vitamin B Complex [Super B-50 Complex]) 1 cap PO DAILY [facility] Last Admin: 08/08/18 11:49 Dose: Not Given Ondansetron HCl (Zofran Inj) 4 mg IVP Q6H PRN PRN Reason: Nausea/Vomiting Oxycodone/Acetaminophen (Percocet 5/325 Mg Tab) 1 tab PO Q6H [facility] Stop: 08/10/18 16:31 Last Admin: 08/09/18 05:54 Dose: Not Given Pantoprazole Sodium (Protonix Ec Tab) 40 mg PO DAILY [facility] Last Admin: 08/08/18 11:48 Dose: 40 mg Potassium Chloride (K-Dur 20 Meq Er Tab) 20 meq PO DAILY [facility] Last Admin: 08/08/18 11:45 Dose: 20 meq Sodium Chloride ([place] Nasal [place]) 0 ml NS QID [facility] Last Admin: 08/08/18 22:24 Dose: Not Given Tiotropium [place] (Spiriva) 18 mcg INH DAILY [facility] Last Admin: 08/08/18 11:48 Dose: 18 mcg - Labs Labs: 08/08/18 09:30 08/08/18 09:30 - Constitutional Appears: Non-toxic, No Acute Distress, Chronically Ill - Head Exam Head Exam: ATRAUMATIC, NORMOCEPHALIC - Eye Exam Eye Exam: EOMI, PERRL - ENT Exam ENT Exam: Mucous Membranes Moist - Neck Exam Neck Exam: Full ROM, Normal Inspection - Respiratory Exam Respiratory Exam: Clear to Ausculation Bilateral, NORMAL BREATHING PATTERN. absent: Rales, Rhonchi, Wheezes - Cardiovascular Exam Cardiovascular Exam: REGULAR RHYTHM, RRR, +S1, +S2. absent: Gallop, Rubs, Murmur - GI/Abdominal Exam GI & Abdominal Exam: Soft, Tenderness (diffuse mild tenderness to palpation greatest LLQ). absent: Distended, Guarding, Rebound - Extremities Exam Extremities Exam: Full ROM. 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 She was evaluated in ED and subsequently admitted and placed on broad spectrum abx. Plan: Thrombocytopenia Likely 2/2 progressing MDS Given severity of MDS, has likely progressed to acute leukemia Patient was afebrile overnight but was febrile again this AM with Tmax 102.9 H/H and platelets both trending down Will need to transfuse 2 u PRBCs and 2 u platelets Will add motrin in addition to tylenol PRN for fever, may use both agents to control fever Will need bone marrow bx for definitive diagnosis if able to tolerate Palliative care consult placed, all recs appreciated Normocytic anemia 2/2 progressing MDS on anemia of chronic disease Order placed to transfuse 2 u PRBCs Would need bone marrow bx for definitive diagnosis if able to tolerate Fever, tachycardia L sided PICC line placed on 07/18/18 per patient history Will need to consider removal of L sided PICC line and placement of R sided PICC line Colitis noted on CTAP, chest CT and gallbaldder US negative for acute changes Given patient's history of diarrhea, C-diff studies sent Stool cx, stool O and P, norovirus, enterovirus, cryptococcal stool studies pending TTE to r/o cx negative (HACEK organisms) endocarditis pending Blood cx negative x 24 hrs, urine cx pending ID following, all recs appreciated Case and plan reviewed and discussed with my attending Dr. John Roberson DO IM Resident PGY-1
[2018-08-09 08:00] LABS: ALB/GLOB RATIO 0.7 (1.1-1.8); ALBUMIN 2.5 g/dL (3.0-4.8); ALT/SGPT 30 U/L (7-56); AST/SGOT 19 U/L (14-36); BLOOD UREA NITROGEN 12 mg/dL (7-21); CALCIUM 7.9 mg/dL (8.4-10.5); GFR NON-AFRICAN AMERICAN > 60
[2018-08-09] MEDS: Budesonide 0.5 mg/2 ml Inhal Susp UD IH SCH ×2 (08:12→19:47)
[2018-08-09] MEDS: Arformoterol 15 mcg/2 ml Inh Sol IH SCH ×2 (08:12→19:47)
--- NOTE | 2018-08-09 08:32 | US ---
Date of service: 08/09/2018 HISTORY: abdominal pain COMPARISON: None. TECHNIQUE: Sonographic evaluation of the right upper quadrant of the abdomen. FINDINGS: LIVER: Measures 19.3 cm in length. Normal echogenicity of the liver parenchyma. No mass. No intrahepatic bile duct dilatation. GALLBLADDER: Unremarkable. No gallstones. COMMON BILE DUCT: Measures 7.4 mm. No stones. No dilatation. PANCREAS: Unremarkable as visualized. No mass. No ductal dilatation. RIGHT KIDNEY: Measures 10.9 x 3.9 x 5.9 cm in length. Normal echogenicity. No calculus, mass, or hydronephrosis. AORTA: No aneurysmal dilatation. IVC: Unremarkable. OTHER FINDINGS: None . IMPRESSION: Negative study
--- NOTE | 2018-08-09 08:50 | CT ---
Date of service: 08/08/2018 PROCEDURE: CT Chest without contrast HISTORY: Fever 103.0 COMPARISON: None available. TECHNIQUE: Contiguous axial images were obtained through the chest without intravenous contrast enhancement. Sagittal and coronal reconstructions were performed. Radiation dose: Total exam DLP = 211.32 mGy-cm. This CT exam was performed using one or more of the following dose reduction techniques: Automated exposure control, adjustment of the mA and/or kV according to patient size, and/or use of iterative reconstruction technique. FINDINGS: LUNGS: Extensive bullous emphysematous changes. Bilateral apical pleural parenchymal fibrosis. MEDIASTINUM: Unremarkable thoracic aorta. No aneurysm. Normal sized heart. Main pulmonary artery unremarkable. No vascular congestion. No lymphadenopathy. No aortic atherosclerotic calcification. PLEURA: Small bilateral pleural effusions. BONES: No fracture. No destructive lesion. UPPER ABDOMEN: Grossly unremarkable. OTHER FINDINGS: None. IMPRESSION: Extensive bullous emphysematous changes. Bilateral apical pleural parenchymal fibrosis.Small bilateral pleural effusions.
[2018-08-09 09:18] LABS: HEMOGLOBIN 7.6 g/dL (12.0-16.0); MEAN CELL VOLUME 89.9 fl (80.0-105.0); MEAN CORPUSCULAR HEMOGLOBIN 29.5 pg (25.0-35.0); MEAN CORPUSCULAR HGB CONC 32.8 g/dl (31.0-37.0); RBC 2.58 10^6/uL (3.5-6.1); RED CELL DISTRIBUTION WIDTH 15.1 % (11.5-14.5); WHITE BLOOD COUNT 7.6 10^3/uL (4.5-11.0)
[2018-08-09] MEDS: levoFLOXacin 750 mg in D5W 750 MG/150 ML BAG IVPB SCH ×2 (09:31→10:08)
[2018-08-09 09:45] LABS: PLATELET COUNT 16 10^3/uL (120.0-450.0)
[2018-08-09] MEDS ORDERED: Enoxaparin 40 mg Syringe SC SCH (10:00)
[2018-08-09] MEDS: Non Formulary Medication (Vitamin B Complex [Super B-50 Complex] 1 CAP) PO SCH (10:04)
[2018-08-09] MEDS: Potassium Chloride 20 mEq ER Tab PO SCH (10:06)
[2018-08-09] MEDS: Vancomycin 1gm in NS 250ml 1 GM/250 ML BAG IVPB SCH (10:07)
[2018-08-09] MEDS: Magnesium Oxide 400 mg Tab UD PO SCH ×2 (10:07→17:14)
[2018-08-09] MEDS: Tiotropium 18 mcg Cap For Inhalation INH SCH (10:07)
[2018-08-09] MEDS: Vancomycin 25 MG/ML PO SCH ×3 (10:08→17:16)
[2018-08-09] MEDS: Pantoprazole 40 mg EC Tab PO SCH (10:45)
--- NOTE | 2018-08-09 10:58 | CP.PCM.PN ---
<Stewart Arroyo - Last Filed: 08/09/18 11:15> Subjective - Date & Time of Evaluation Date of Evaluation: 08/09/18 Time of Evaluation: 09:55 - Subjective Subjective: Stewart Arroyo PGY2 GI Progress Note for Dr. Dela Cruz Patient was seen and examined at bedside. Overnight, the patient had episodes of loose bowels, and c.diff was sent. She did have an episode of fevers. blood cultures negative x24 hrs, and urine cx negative for growth. CT Abd reviewed showing pancolitis. Objective - Vital Signs/Intake and Output Vital Signs (last 24 hours): Temp Pulse Resp BP Pulse Ox 101.9 F H 115 H 24 145/72 94 L 08/09/18 10:54 08/09/18 06:00 08/09/18 06:00 08/09/18 10:06 08/09/18 06:00 Intake and Output: 08/09/18 08/09/18 06:59 18:59 Intake Total 1140 0 Output Total 1140 Balance 0 0 - Medications Medications: Current Medications Acetaminophen (Tylenol 325mg Tab) 650 mg PO Q4H PRN PRN Reason: Fever >100.4 F Last Admin: 08/09/18 05:52 Dose: 650 mg Albuterol/Ipratropium (Duoneb 3 Mg/0.5 Mg (3 Ml) Ud) 3 ml IH [id number] PRN PRN Reason: Shortness of Breath Amlodipine Besylate (Norvasc) 10 mg PO DAILY [facility] Last Admin: 08/09/18 10:06 Dose: 10 mg Arformoterol Tartrate (Brovana) 15 mcg IH [id number] [facility] Last Admin: 08/09/18 08:12 Dose: Not Given Atenolol (Tenormin) 25 mg PO BID [facility] Last Admin: 08/09/18 10:06 Dose: 25 mg Budesonide (Pulmicort Respules) 0.5 mg IH BIDRESP [facility] Last Admin: 08/09/18 08:12 Dose: Not Given Clonazepam (Klonopin) 0.5 mg PO BID [facility]; Protocol Last Admin: 08/09/18 10:07 Dose: 0.5 mg Diphenhydramine HCl (Benadryl) 25 mg IVP Q4H PRN PRN Reason: Allergy symptoms Ergocalciferol (isdol 50,000 Intl Units Cap) 1 cap PO SUN [facility] Sodium Chloride (Sodium Chloride 0.9%) 1,000 mls @ 100 mls/hr IV .Q10H [facility] Last Admin: 08/09/18 05:54 Dose: 100 mls/hr Meropenem (Merrem Iv 1 Gm Premix) 1 gm in 50 mls @ 100 mls/hr IVPB Q8 [facility]; Protocol Stop: 08/16/18 22:01 Last Admin: 08/09/18 05:52 Dose: 100 mls/hr Vancomycin HCl (Vancomycin 1gm) 1 gm in 250 mls @ 167 mls/hr IVPB Q12 [facility]; Protocol Stop: 08/16/18 22:01 Last Admin: 08/09/18 10:07 Dose: 167 mls/hr Ibuprofen (Motrin Tab) 400 mg PO Q6H PRN PRN Reason: Fever >100.4 F Loratadine (Claritin) 10 mg PO DAILY [facility] Last Admin: 08/09/18 10:06 Dose: 10 mg Losartan Potassium (Cozaar) 50 mg PO QPM [facility] Last Admin: 08/08/18 18:04 Dose: 50 mg Magnesium Oxide (Mag-Ox) 400 mg PO BID [facility] Last Admin: 08/09/18 10:07 Dose: 400 mg Mirtazapine (Remeron) 15 mg PO HS [facility] Last Admin: 08/08/18 22:15 Dose: 15 mg Montelukast Sodium (Singulair) 10 mg PO DAILY [facility] Last Admin: 08/09/18 10:07 Dose: 10 mg Nicotine (Nicoderm Cq) 1 patch TD DAILY [facility] Last Admin: 08/09/18 10:22 Dose: Not Given Non-Formulary Medication (Vitamin B Complex [Super B-50 Complex]) 1 cap PO DAILY [facility] Last Admin: 08/09/18 10:04 Dose: Not Given Ondansetron HCl (Zofran Inj) 4 mg IVP Q6H PRN PRN Reason: Nausea/Vomiting Last Admin: 08/09/18 09:36 Dose: 4 mg Oxycodone/Acetaminophen (Percocet 5/325 Mg Tab) 1 tab PO Q6H [facility] Stop: 08/10/18 16:31 Last Admin: 08/09/18 10:06 Dose: 1 tab Pantoprazole Sodium (Protonix Ec Tab) 40 mg PO DAILY [facility] Last Admin: 08/08/18 11:48 Dose: 40 mg Potassium Chloride (K-Dur 20 Meq Er Tab) 20 meq PO DAILY [facility] Last Admin: 08/09/18 10:06 Dose: 20 meq Sodium Chloride ([place] Nasal [place]) 0 ml NS QID [facility] Last Admin: 08/09/18 10:29 Dose: Not Given Tiotropium [place] (Spiriva) 18 mcg INH DAILY [facility] Last Admin: 08/09/18 10:07 Dose: 18 mcg Vancomycin HCl (Vancocin 25 Mg/Ml (Oral Use)) 250 mg PO QID [facility]; Protocol Last Admin: 08/09/18 10:08 Dose: 250 mg - Labs Labs: 08/09/18 07:00 08/09/18 07:00 - Constitutional Appears: Non-toxic, Cachectic, Chronically Ill - Head Exam Head Exam: ATRAUMATIC, NORMAL INSPECTION - Eye Exam Eye Exam: EOMI, Normal appearance - ENT Exam ENT Exam: Mucous Membranes Moist, Normal Exam - Neck Exam Neck Exam: Full ROM, Normal Inspection - Respiratory Exam Respiratory Exam: NORMAL BREATHING PATTERN. absent: Respiratory Distress - Cardiovascular Exam Cardiovascular Exam: RRR, +S1, +S2 - GI/Abdominal Exam GI & Abdominal Exam: Soft, Tenderness (diffuse mild), Normal Bowel Sounds. absent: Distended - Extremities Exam Extremities Exam: Full ROM, Normal Inspection - Neurological Exam Neurological Exam: Alert, Awake - Skin Skin Exam: Normal Color, Warm Assessment and Plan - Assessment and Plan (Free Text) Assessment: 53 year old female with a PMH of MDS (high grade, s/p chemotherapy), immunosuppression, lung cancer (s/p lobectomy, 2017), breast cancer s/p R breast mastectomy (2004), COPD, and endocarditis who is admitted for fevers. Patient complaining of mild abdominal pain. Labs and scans were reviewed. CT abd showing pancolitis, cdiff was sent. Patient still spiking fevers; she is not neutropenic. She is being transfused for her anemia. Plan: - started on PO vancomycin 250 QID empirically - awaiting c.diff results - switched to CLD; will need bowel rest - monitor H/H; transfusing per Heme/Onc - Abx per ID - Palliative care is following the case - Computer Network[employer] referral is requested to ensure proper nutrition - further recs per Dr. Jose De Jesus Case was reviewed and discussed with Dr. Dela Cruz <Efrem Dela Cruz V - Last Filed: 08/09/18 19:44> Objective - Vital Signs/Intake and Output Vital Signs (last 24 hours): Temp Pulse Resp BP Pulse Ox 99 F 84 12 95/82 L 95 08/09/18 18:13 08/09/18 18:13 08/09/18 18:13 08/09/18 18:13 08/09/18 16:47 Intake and Output: 08/09/18 08/10/18 18:59 06:59 Intake Total 415 Balance 415 - Medications Medications: Current Medications Acetaminophen (Tylenol 325mg Tab) 650 mg PO Q4H PRN PRN Reason: Fever >100.4 F Last Admin: 08/09/18 05:52 Dose: 650 mg Albuterol/Ipratropium (Duoneb 3 Mg/0.5 Mg (3 Ml) Ud) 3 ml IH [id number] PRN PRN Reason: Shortness of Breath Amlodipine Besylate (Norvasc) 10 mg PO DAILY [facility] Last Admin: 08/09/18 10:06 Dose: 10 mg Arformoterol Tartrate (Brovana) 15 mcg IH [id number] [facility] Last Admin: 08/09/18 08:12 Dose: Not Given Atenolol (Tenormin) 25 mg PO BID [facility] Last Admin: 08/09/18 17:15 Dose: Not Given Budesonide (Pulmicort Respules) 0.5 mg IH BIDRESP [facility] Last Admin: 08/09/18 08:12 Dose: Not Given Clonazepam (Klonopin) 0.5 mg PO BID [facility]; Protocol Last Admin: 08/09/18 17:14 Dose: 0.5 mg Diphenhydramine HCl (Benadryl) 25 mg IVP Q4H PRN PRN Reason: Allergy symptoms Last Admin: 08/09/18 18:03 Dose: 25 mg Enoxaparin Sodium (Lovenox) 40 mg SC DAILY [facility]; Protocol Ergocalciferol (Drisdol 50,000 Intl Units Cap) 1 cap PO SUN [facility] Sodium Chloride (Sodium Chloride 0.9%) 1,000 mls @ 100 mls/hr IV .Q10H [facility] Last Admin: 08/09/18 05:54 Dose: 100 mls/hr Meropenem (Merrem Iv 1 Gm Premix) 1 gm in 50 mls @ 100 mls/hr IVPB Q8 [facility]; Protocol Stop: 08/16/18 22:01 Last Admin: 08/09/18 13:08 Dose: 100 mls/hr Vancomycin HCl (Vancomycin 1gm) 1 gm in 250 mls @ 167 mls/hr IVPB Q12 [facility]; Protocol Stop: 08/16/18 22:01 Last Admin: 08/09/18 10:07 Dose: 167 mls/hr Ibuprofen (Motrin Tab) 400 mg PO Q6H PRN PRN Reason: Fever >100.4 F Loratadine (Claritin) 10 mg PO DAILY [facility] Last Admin: 08/09/18 10:06 Dose: 10 mg Losartan Potassium (Cozaar) 50 mg PO QPM [facility] Last Admin: 08/09/18 17:15 Dose: Not Given Magnesium Oxide (Mag-Ox) 400 mg PO BID [facility] Last Admin: 08/09/18 17:14 Dose: 400 mg Mirtazapine (Remeron) 15 mg PO HS [facility] Last Admin: 08/08/18 22:15 Dose: 15 mg Montelukast Sodium (Singulair) 10 mg PO DAILY [facility] Last Admin: 08/09/18 10:07 Dose: 10 mg Nicotine (Nicoderm Cq) 1 patch TD DAILY [facility] Last Admin: 08/09/18 10:22 Dose: Not Given Non-Formulary Medication (Vitamin B Complex [Super B-50 Complex]) 1 cap PO DAILY [facility] Last Admin: 08/09/18 10:04 Dose: Not Given Ondansetron HCl (Zofran Inj) 4 mg IVP Q6H PRN PRN Reason: Nausea/Vomiting Last Admin: 08/09/18 09:36 Dose: 4 mg Oxycodone/Acetaminophen (Percocet 5/325 Mg Tab) 1 tab PO Q6H [facility] Stop: 08/10/18 16:31 Last Admin: 08/09/18 17:14 Dose: 1 tab Pantoprazole Sodium (Protonix Ec Tab) 40 mg PO DAILY [facility] Last Admin: 08/09/18 10:45 Dose: 40 mg Potassium Chloride (K-Dur 20 Meq Er Tab) 20 meq PO DAILY [facility] Last Admin: 08/09/18 10:06 Dose: 20 meq Sodium Chloride ([place] Nasal [place]) 0 ml NS QID [facility] Last Admin: 08/09/18 17:15 Dose: Not Given Tiotropium [place] (Spiriva) 18 mcg INH DAILY [facility] Last Admin: 08/09/18 10:07 Dose: 18 mcg Vancomycin HCl (Vancocin 25 Mg/Ml (Oral Use)) 250 mg PO QID [facility]; Protocol Last Admin: 08/09/18 17:16 Dose: 250 mg - Labs Labs: 08/09/18 07:00 08/09/18 07:00 Attending/Attestation - Attestation I have personally seen and examined this patient.: Yes I have fully participated in the care of the patient.: Yes I have reviewed all pertinent clinical information, including history, physical exam and plan: Yes Notes (Text): This patient was seen and evaluated along with the resident earlier today. This is an addendum to the progress report dictated by the resident. The CT scan was reviewed. Clinically more suggestive of C. difficile colitis. History of C. difficile colitis in the past Will restart the p.o. vancomycin. Follow up the stool studies. Patient has a advanced MDS thrombocytopenia history of fevers before Antibiotics as per ID Patient was placed on liquid diet in view of this significant colitis and tenderness mainly in the right side of abdomen. 08/09/18 19:42
--- NOTE | 2018-08-09 11:35 | CT ---
Date of service: 08/08/2018 PROCEDURE: CT Abdomen and Pelvis without intravenous contrast HISTORY: ABDOMINAL PAIN COMPARISON: 07/21/2018 TECHNIQUE: Technique. Contrast dose: Radiation dose: Total exam DLP = 291.79 mGy-cm. This CT exam was performed using one or more of the following dose reduction techniques: Automated exposure control, adjustment of the mA and/or kV according to patient size, and/or use of iterative reconstruction technique. FINDINGS: LOWER THORAX: Cardiomegaly. Small bilateral pleural effusions. LIVER: Hepatomegaly. No gross lesion or ductal dilatation. GALLBLADDER AND BILE DUCTS: Unremarkable. PANCREAS: Unremarkable. No gross lesion or ductal dilatation. SPLEEN: Unremarkable. ADRENALS: Unremarkable. No mass. KIDNEYS AND URETERS: Unremarkable. No hydronephrosis. No solid mass. VASCULATURE: Unremarkable. No aortic aneurysm. No aortic atherosclerotic calcification or mural plaque present. BOWEL: Thickening of the terminal ileum suspicious for inflammatory bowel disease. APPENDIX: Unremarkable. Normal appendix. PERITONEUM: Unremarkable. No free fluid. No free air. LYMPH NODES: Unremarkable. No enlarged lymph nodes. BLADDER: Unremarkable. REPRODUCTIVE: Unremarkable. BONES: No acute fracture. OTHER FINDINGS: None. IMPRESSION: Diffuse thickening of the terminal ileum suspicious for inflammatory bowel disease. Please correlate clinically. Small bilateral pleural effusions.
--- NOTE | 2018-08-09 12:42 | PN ---
DATE: 08/09/2018 PULMONARY PROGRESS NOTE REFERRING PHYSICIAN: August Lara MD SUBJECTIVE: The patient is seen lying in bed. Overnight, the patient had loose bowel movements. Stool for C. diff has been collected. The patient was also noted febrile overnight and this morning. Reports abdominal pain, periods of shortness of breath, no cough. No headache, rhinitis, chest pain, nausea, vomiting, leg pain or leg swelling reported at this time. OBJECTIVE: VITAL SIGNS: Blood pressure 106/63, pulse 115, temperature 101.5, and oxygen saturation 94%. GENERAL: No acute distress. HEENT: Moist mucous membranes. Mallampati score of 4. Crowded airway. NECK: Supple. No JVD. RESPIRATORY: Decreased breath sounds. CARDIOVASCULAR: S1 and S2. ABDOMEN: Tenderness on palpation. No distention. EXTREMITIES: No bilateral lower extremity edema. NEUROLOGIC: Awake, alert and verbal. Following commands. MEDICATION: Reviewed. Tylenol 650 mg every 4 hours p.r.n. fever greater than 100.4, DuoNeb 3 mL inhalation every 4 hours p.r.n, Norvasc 10 mg daily, Brovana 15 mcg every 12 hours, atenolol 25 mg twice a day, Pulmicort 0.5 mg inhalation twice a day, Klonopin 0.5 mg twice a day, Benadryl 25 mg IV push every 4 hours p.r.n., ergocalciferol 50,000 units weekly, Motrin 400 mg every 6 hours p.r.n. fever of greater than 100.4, Claritin 10 mg daily, Cozaar 50 mg in the evening, magnesium oxide 400 mg twice a day, Meropenem 1 g every 8 hours, Remeron 15 mg at bedtime, Singulair 10 mg daily, nicotine patch transdermal daily, vitamin B complex daily, Zofran 4 mg IV push every 6 hours p.r.n., Percocet 5/325 mg every 6 hours, Protonix 40 mg daily, potassium chloride 20 mEq daily, sodium chloride 0.9% 1000 mL at 100 mL per hour, [place] nasal spray 4 times a day, Spiriva 18 mcg inhalation daily, vancomycin 1 g every 12 hours, and vancomycin oral 250 mg 4 times a day. LABORATORY DATA: Reviewed. WBC 7.6, hemoglobin 7.6, hematocrit 23.2, and platelets 16. Sodium 141, potassium 3.7, chloride 112, carbon dioxide 23, anion gap 10, BUN 12, creatinine 0.8, GFR greater than 60, random glucose 123, calcium 7.9, phosphorus 2.4, magnesium 1.8, and total bilirubin 1.3. AST 19, ALT 30, alkaline phosphatase 132, total protein 5.8, albumin 2.5, globulin 3.3, and albumin globulin ratio of 0.7. Urinalysis; urine protein trace, urine ketone trace, urobilinogen 1. Urine culture final; no growth. Blood cultures preliminary; no growth after 24 hours. Abdominal and pelvis CT report pending. Chest CT shows extensive bullous emphysematous changes, bilateral apical pleural parenchymal fibrosis, small bilateral pleural effusions. Gallbladder ultrasound; negative study. IMPRESSION AND PLAN: Procalcitonin is positive suspect pneumonia, healthcare-associated, immunocompromised, high grade myelodysplastic syndrome, lung cancer status post lobectomy, thrombocytopenia, anemia, sickle cell anemia, asthma, and chronic obstructive pulmonary disease. Continue broad spectrum antibiotics. Continue gastroenterology followup. Inhale bronchodilators, gastric prophylaxis, leukotriene inhibitors, antibiotics per Infectious Disease. Stool for Clostridium difficile pending. Continue sequential compression devices to bilateral lower extremities for deep venous thrombosis prophylaxis as the patient cannot be on chemical prophylaxis due to current anemia status. Started on oral vancomycin this morning. For blood transfusion today. Recommend full pulmonary function test and sleep study as outpatient. This patient was seen and examined with Dr. Maurer. Discussed assessment and plan as described above. The patient was seen and examined with Henry Marquez, nurse practitioner. Discussed assessment and plan as described above. Thank you for this consult and we will follow with you. Henry Marquez APN Solange Maurer MD JONAH
[2018-08-09] MEDS: DiphenhydrAMINE 50 mg/ml Inj IVP PRN ×2 (13:09→18:03)
--- NOTE | 2018-08-09 13:28 | CP.PCM.CON ---
History of Present Illness - History of Present Illness History of Present Illness: Palliative consult requested by Dr Darren Lara Reason: Goals of care This is a 53 year female with history of MDS, lung cancer, breast cancer, COPD, and endocarditis who presented to outpatient infusion clinic yesterday for repeat platelet transfusion and was found to be febrile on exam. She was evaluated in ED and tarted on empiric antibiotics. She reports abdominal pain mainly in the suprapubic region and fevers. She denied nausea/vomiting/diarrhea, chest pain or changes in stool habits. CT of chest:Extensive bullous emphysematous changes. Bilateral pleural parenchymal fibrosis, small bilateral pleural effusions. CT of Ab/Pel: Diffuse thickening of the terminal ileum suspicious for inflammatory bowel disease. US of gall badder: Negative PMH: MDS, breast cancer, lung cancer, sickle cell, COPD,endocarditis,anemia, pneumonia,epistaxis. PSH: R breast mastectomy 2004, lobectomy 2017,EGD. Social History: Former smoker, denies current alcohol and illicit drug use. Family History: Mother > pancreatic/gastric cancer. Advance Care Planning: The patient does not have an Advanced Directive, her daughter Mauricio is her health care surrogate Review of Systems - Constitutional Constitutional: Fatigue, Fever - EENT Additional comments: negative - Breasts Additional comments: s/p right mastectomy - Cardiovascular Additional comments: negative - Respiratory Additional comments: negative - Gastrointestinal Gastrointestinal: Bloating, Early Satiety, Nausea - Genitourinary Additional comments: denies - Menstruation Menstruation: Amenorrhea - Musculoskeletal Additional comments: chronic low back pain - Integumentary Additional comments: negative - Neurological Additional comments: negative - Endocrine Additional Comments: negative Past Patient History - Infectious Disease Hx of Infectious Diseases: None - Tetanus Immunizations Tetanus Immunization: Unknown - Past Social History Smoking Status: Former Smoker - CARDIAC Hx Cardiac Disorders: Yes Hx Hypertension: Yes Hx Pacemaker: No - PULMONARY Hx Respiratory Disorders: Yes Hx Bronchitis: Yes Hx Emphysema: Yes Hx Pneumonia: Yes Hx Sleep Apnea: Yes - NEUROLOGICAL Hx Neurological Disorder: Yes Hx Dizziness: Yes Hx Transient Ischemic Attacks (TIA): Yes - HEENT Hx HEENT Problems: Yes Hx Epistaxis: Yes - RENAL Hx Chronic Kidney Disease: Yes Hx Kidney Stones: Yes Other/Comment: "englarged kidney" - ENDOCRINE/METABOLIC Hx Endocrine Disorders: Yes Hx Systemic Lupus Erythematosus: Yes - HEMATOLOGICAL/ONCOLOGICAL Hx Blood Disorders: Yes Hx Anemia: Yes Hx Cancer: Yes (breast, lung, MDS) Hx Sickle Cell Disease: Yes Hx Unexplained Bleeding: Yes (Epitaxis) Other/Comment: SLE - INTEGUMENTARY Hx Dermatological Problems: No - MUSCULOSKELETAL/RHEUMATOLOGICAL Hx Musculoskeletal Disorders: Yes Hx Back Pain: Yes Hx Falls: Yes Hx Unsteady Gait: Yes - GASTROINTESTINAL Hx Gastrointestinal Disorders: Yes (CONSTIPATION,WEIGHT LOSS 14 LBS .) Other/Comment: gall stones - GENITOURINARY/GYNECOLOGICAL Hx Genitourinary Disorders: No - PSYCHIATRIC Hx Psychophysiologic Disorder: Yes Hx Anxiety: Yes - SURGICAL HISTORY Hx Surgeries: Yes Hx Mastectomy: No (R lumpectomy) Other/Comment: L foot sx, tonsilectomy - ANESTHESIA Hx Anesthesia: Yes Hx Anesthesia Reactions: No Hx Malignant Hyperthermia: No Meds Allergies/Adverse Reactions: Allergies Allergy/AdvReac Type Severity Reaction Status Date / Time No Known Allergies Allergy Verified 08/07/18 19:04 - Medications Medications: Current Medications Acetaminophen (Tylenol 325mg Tab) 650 mg PO Q4H PRN PRN Reason: Fever >100.4 F Last Admin: 08/09/18 05:52 Dose: 650 mg Albuterol/Ipratropium (Duoneb 3 Mg/0.5 Mg (3 Ml) Ud) 3 ml IH [id number] PRN PRN Reason: Shortness of Breath Amlodipine Besylate (Norvasc) 10 mg PO DAILY [facility] Last Admin: 08/09/18 10:06 Dose: 10 mg Arformoterol Tartrate (Brovana) 15 mcg IH [id number] COUNT INCLUDES [facility] Last Admin: 08/09/18 08:12 Dose: Not Given Atenolol (Tenormin) 25 mg PO BID COUNT [facility]CLUD[facility] Last Admin: 08/09/18 10:06 Dose: 25 mg Budesonide (Pulmicort Respules) 0.5 mg IH BIDRESP COUNT [facility]CLUDES [facility] Last Admin: 08/09/18 08:12 Dose: Not Given Clonazepam (Klonopin) 0.5 mg PO BID COUNT [facility]CLUD[facility]; Protocol Last Admin: 08/09/18 10:07 Dose: 0.5 mg Diphenhydramine HCl (Benadryl) 25 mg IVP Q4H PRN PRN Reason: Allergy symptoms Last Admin: 08/09/18 13:09 Dose: 25 mg Ergocalciferol (Drisdol 50,000 Intl Units Cap) 1 cap PO SUN COUNT INCLUDES [facility] Sodium Chloride (Sodium Chloride 0.9%) 1,000 mls @ 100 mls/hr IV .Q10H COUNT INCLUDES THE [facility] Last Admin: 08/09/18 05:54 Dose: 100 mls/hr Meropenem (Merrem Iv 1 Gm Premix) 1 gm in 50 mls @ 100 mls/hr IVPB Q8 [facility]; Protocol Stop: 08/16/18 22:01 Last Admin: 08/09/18 13:08 Dose: 100 mls/hr Vancomycin HCl (Vancomycin 1gm) 1 gm in 250 mls @ 167 mls/hr IVPB Q12 [facility]; Protocol Stop: 08/16/18 22:01 Last Admin: 08/09/18 10:07 Dose: 167 mls/hr Ibuprofen (Motrin Tab) 400 mg PO Q6H PRN PRN Reason: Fever >100.4 F Loratadine (Claritin) 10 mg PO DAILY COUNT [facility]CLUD[facility] Last Admin: 08/09/18 10:06 Dose: 10 mg Losartan Potassium (Cozaar) 50 mg PO QPM COUNT [facility]CLUD[facility] Last Admin: 08/08/18 18:04 Dose: 50 mg Magnesium Oxide (Mag-Ox) 400 mg PO BID COUNT [facility]CLUD[facility] Last Admin: 08/09/18 10:07 Dose: 400 mg Mirtazapine (Remeron) 15 mg PO HS COUNT [facility]CLUDES [facility] Last Admin: 08/08/18 22:15 Dose: 15 mg Montelukast Sodium (Singulair) 10 mg PO DAILY COUNT [facility]CLUD[facility] Last Admin: 08/09/18 10:07 Dose: 10 mg Nicotine (Nicoderm Cq) 1 patch TD DAILY COUNT [facility]CLUD[facility] Last Admin: 08/09/18 10:22 Dose: Not Given Non-Formulary Medication (Vitamin B Complex [Super B-50 Complex]) 1 cap PO DAILY COUNT [facility]CLUDES [facility] Last Admin: 08/09/18 10:04 Dose: Not Given Ondansetron HCl (Zofran Inj) 4 mg IVP Q6H PRN PRN Reason: Nausea/Vomiting Last Admin: 08/09/18 09:36 Dose: 4 mg Oxycodone/Acetaminophen (Percocet 5/325 Mg Tab) 1 tab PO Q6H COUNT [facility]CLUDES [facility] Stop: 08/10/18 16:31 Last Admin: 08/09/18 10:06 Dose: 1 tab Pantoprazole Sodium (Protonix Ec Tab) 40 mg PO DAILY COUNT [facility]CLUDES [facility] Last Admin: 08/09/18 10:45 Dose: 40 mg Potassium Chloride (K-Dur 20 Meq Er Tab) 20 meq PO DAILY COUNT [facility]CLUDES [facility] Last Admin: 08/09/18 10:06 Dose: 20 meq Sodium Chloride ([place] Nasal [place]) 0 ml NS QID COUNT INCLUDES [facility] Last Admin: 08/09/18 13:10 Dose: Not Given Tiotropium [place] (Spiriva) 18 mcg INH DAILY COUNT [facility]CLUDES [facility] Last Admin: 08/09/18 10:07 Dose: 18 mcg Vancomycin HCl (Vancocin 25 Mg/Ml (Oral Use)) 250 mg PO QID COUNT INCLUDES [facility]; Protocol Last Admin: 08/09/18 13:09 Dose: 250 mg Physical Exam - Constitutional Appears: Cachectic, Chronically Ill - Head Exam Head Exam: NORMAL INSPECTION - Eye Exam Eye Exam: Normal appearance, PERRL - ENT Exam ENT Exam: Mucous Membranes Moist, Normal Oropharynx - Neck Exam Neck exam: Positive for: Normal Inspection - Respiratory Exam Respiratory Exam: Clear to Auscultation Bilateral, NORMAL BREATHING PATTERN - Cardiovascular Exam Cardiovascular Exam: REGULAR RHYTHM, +S1, +S2 - GI/Abdominal Exam GI & Abdominal Exam: Normal Bowel Sounds, Soft, Tenderness - Rectal Exam Rectal Exam: Deferred - Extremities Exam Extremities exam: Positive for: normal inspection, pedal pulses present - Back Exam Back exam: tenderness - Neurological Exam Neurological exam: Alert, Oriented x3 - Psychiatric Exam Psychiatric exam: Normal Affect - Skin Skin Exam: Dry, Warm - Additional Findings Additional findings: Palliative performance scale 50% Results - Vital Signs Recent Vital Signs: Last Vital Signs Temp 98.3 F 08/09/18 13:06 Pulse 81 08/09/18 13:06 Resp 12 08/09/18 13:06 BP 114/72 08/09/18 13:06 Pulse Ox 94 L 08/09/18 06:00 - Labs Result Diagrams: 08/09/18 07:00 08/09/18 07:00 Labs: Laboratory Results - last 24 hr 08/07/18 08/09/18 08/09/18 18:54 07:00 07:00 WBC 7.6 D RBC 2.58 L Hgb 7.6 L Hct 23.2 L MCV 89.9 MCH 29.5 MCHC 32.8 RDW 15.1 H Plt Count 16 L* Sodium 141 Potassium 3.7 Chloride 112 H Carbon Dioxide 23 Anion Gap 10 BUN 12 Creatinine 0.8 Est GFR ( Amer) > 60 Est GFR (Non-Af Amer) > 60 Random Glucose 123 H Calcium 7.9 L Phosphorus 2.4 L Magnesium 1.9 Total Bilirubin 1.3 AST 19 ALT 30 Alkaline Phosphatase 132 H Total Protein 5.8 Albumin 2.5 L Globulin 3.3 Albumin/Globulin Ratio 0.7 L Blood Type B POSITIVE Antibody Screen Negative Crossmatch See Detail BBK History Checked Patient has bt Assessment & Plan - Assessment and Plan (Free Text) Assessment: 53 year old female with history of MDS, breast cancer, lung cancer, sickle cell, COPD,endocarditis,anemia, pneumonia,epistaxis who is admittied with fever, pancolitis,thrombocytopnenia. Patient is alert, denies pain. State's she was nausea earlier but was given Zofran and symptom has reasoned. States she is hungry but can't eat much. Advance care planning discussed. The patient stated she doesn't want to be intubated or have IN but will not agree to initiate an Advance Directive. The patient states she wants her daughter Mauricio to make all of her medical decisions.The patient states that she intends to continue treatment of her cancer VM left for daughter, intent to discuss goals of care Goals of care and advance care planning discussion with neno, 20 minutes Plan: Goals of care and advance care planning Anemia; Monitor CBC, transfuse as needed. Foster colitis: GI recs reviewed, C Diff pending, PPI, Zofran clear liquid diet,refractory repairer referral. Blood and urine cultures negative, sputum pending, ID recs continue Merrem COPD: continue Brovana,Singulair,Duonebs Percocet for pain PT/OT
--- NOTE | 2018-08-09 13:38 | CP.PCM.PN ---
<Scar Bemreo - Last Filed: 08/09/18 13:32> Subjective - Date & Time of Evaluation Date of Evaluation: 08/09/18 Time of Evaluation: 09:20 - Subjective Subjective: Scar Bermeo D.O. PGY-3, Internal Medicine Resident, Infectious Disease Progress Note 53-year-old female with a past medical history of myelodysplastic syndrome status post chemotherapy, lung cancer status post lobectomy, right breast mastec leonard, chronic obstructive pulmonary disease, and endocarditis who presented for platelet transfusion yesterday at the infusion clinic and was found to be febrile with a fever of 101.2. Infectious disease consultation was requested for his fever. Patient was seen and examined at bedside. States feeling hot and weak. Having fevers overnight. Also multiple episodes of diarrhea. Objective - Vital Signs/Intake and Output Vital Signs (last 24 hours): Temp Pulse Resp BP Pulse Ox 98.3 F 81 12 114/72 94 L 08/09/18 13:06 08/09/18 13:06 08/09/18 13:06 08/09/18 13:06 08/09/18 06:00 Intake and Output: 08/09/18 08/09/18 06:59 18:59 Intake Total 1140 15 Output Total 1140 Balance 0 15 - Medications Medications: Current Medications Acetaminophen (Tylenol 325mg Tab) 650 mg PO Q4H PRN PRN Reason: Fever >100.4 F Last Admin: 08/09/18 05:52 Dose: 650 mg Albuterol/Ipratropium (Duoneb 3 Mg/0.5 Mg (3 Ml) Ud) 3 ml IH [id number] PRN PRN Reason: Shortness of Breath Amlodipine Besylate (Norvasc) 10 mg PO DAILY [facility] Last Admin: 08/09/18 10:06 Dose: 10 mg Arformoterol Tartrate (Brovana) 15 mcg IH [id number] [facility] Last Admin: 08/09/18 08:12 Dose: Not Given Atenolol (Tenormin) 25 mg PO BID [facility] Last Admin: 08/09/18 10:06 Dose: 25 mg Budesonide (Pulmicort Respules) 0.5 mg IH BIDRESP [facility] Last Admin: 08/09/18 08:12 Dose: Not Given Clonazepam (Klonopin) 0.5 mg PO BID [facility]; Protocol Last Admin: 08/09/18 10:07 Dose: 0.5 mg Diphenhydramine HCl (Benadryl) 25 mg IVP Q4H PRN PRN Reason: Allergy symptoms Last Admin: 08/09/18 13:09 Dose: 25 mg Ergocalciferol (Drisdol 50,000 Intl Units Cap) 1 cap PO SUN [facility] Sodium Chloride (Sodium Chloride 0.9%) 1,000 mls @ 100 mls/hr IV .Q10H [facility] Last Admin: 08/09/18 05:54 Dose: 100 mls/hr Meropenem (Merrem Iv 1 Gm Premix) 1 gm in 50 mls @ 100 mls/hr IVPB Q8 [facility]; Protocol Stop: 08/16/18 22:01 Last Admin: 08/09/18 13:08 Dose: 100 mls/hr Vancomycin HCl (Vancomycin 1gm) 1 gm in 250 mls @ 167 mls/hr IVPB Q12 [facility]; Protocol Stop: 08/16/18 22:01 Last Admin: 08/09/18 10:07 Dose: 167 mls/hr Ibuprofen (Motrin Tab) 400 mg PO Q6H PRN PRN Reason: Fever >100.4 F Loratadine (Claritin) 10 mg PO DAILY [facility] Last Admin: 08/09/18 10:06 Dose: 10 mg Losartan Potassium (Cozaar) 50 mg PO QPM [facility] Last Admin: 08/08/18 18:04 Dose: 50 mg Magnesium Oxide (Mag-Ox) 400 mg PO BID [facility] Last Admin: 08/09/18 10:07 Dose: 400 mg Mirtazapine (Remeron) 15 mg PO HS [facility] Last Admin: 08/08/18 22:15 Dose: 15 mg Montelukast Sodium (Singulair) 10 mg PO DAILY [facility] Last Admin: 08/09/18 10:07 Dose: 10 mg Nicotine (Nicoderm Cq) 1 patch TD DAILY [facility] Last Admin: 08/09/18 10:22 Dose: Not Given Non-Formulary Medication (Vitamin B Complex [Super B-50 Complex]) 1 cap PO DAILY [facility] Last Admin: 08/09/18 10:04 Dose: Not Given Ondansetron HCl (Zofran Inj) 4 mg IVP Q6H PRN PRN Reason: Nausea/Vomiting Last Admin: 08/09/18 09:36 Dose: 4 mg Oxycodone/Acetaminophen (Percocet 5/325 Mg Tab) 1 tab PO Q6H [facility] Stop: 08/10/18 16:31 Last Admin: 08/09/18 10:06 Dose: 1 tab Pantoprazole Sodium (Protonix Ec Tab) 40 mg PO DAILY [facility] Last Admin: 08/09/18 10:45 Dose: 40 mg Potassium Chloride (K-Dur 20 Meq Er Tab) 20 meq PO DAILY [facility] Last Admin: 08/09/18 10:06 Dose: 20 meq Sodium Chloride ([place] Nasal [place]) 0 ml NS QID [facility] Last Admin: 08/09/18 13:10 Dose: Not Given Tiotropium [place] (Spiriva) 18 mcg INH DAILY [facility] Last Admin: 08/09/18 10:07 Dose: 18 mcg Vancomycin HCl (Vancocin 25 Mg/Ml (Oral Use)) 250 mg PO QID [facility]; Protocol Last Admin: 08/09/18 13:09 Dose: 250 mg - Labs Labs: 08/09/18 07:00 08/09/18 07:00 - Constitutional Appears: Chronically Ill - Head Exam Head Exam: ATRAUMATIC - Eye Exam Eye Exam: EOMI, PERRL. absent: Scleral icterus - ENT Exam ENT Exam: Mucous Membranes Moist, Normal Oropharynx, no palate petechiae - Neck Exam Neck exam: Positive for: Normal Inspection. Negative for: Lymphadenopathy - Respiratory Exam Respiratory Exam: Clear to Auscultation Bilateral. absent: Rales, Rhonchi, Wheezes - Cardiovascular Exam Cardiovascular Exam: RRR, +S1, +S2. absent: Gallop, Rubs - GI/Abdominal Exam GI & Abdominal Exam: diffusely tender - Extremities Exam Extremities exam: Negative for: calf tenderness, pedal edema - Neurological Exam Neurological exam: Alert, Oriented x4 - Psychiatric Exam Psychiatric exam: Normal Affect, Normal Mood - Skin Skin Exam: Dry, Warm Assessment and Plan - Assessment and Plan (Free Text) Assessment: 53-year-old female with a past medical history of myelodysplastic syndrome statu s post chemotherapy, lung cancer status post lobectomy, right breast mastectomy, chronic obstructive pulmonary disease, and endocarditis who presented for platelet transfusion yesterday at the infusion clinic and was found to be febrile with a fever of 101.2. Infectious disease consultation was requested for his fever. Plan: Sepsis likely 2/2 pancolitis Immunocompromise state High-grade myelodysplastic syndrome Lung cancer status post lobectomy Abd/pelvis CT revealed pancolitis Given the diarrhea, will check Cdiff and empirically start on PO vanco MRSA screen negative Sputum culture pending Blood cultures negative 2/2 day 1 Urine culture negative Empirically on meropenem/vanco day 2 We will follow with you Patient was seen and examined and case to be discussed with attending physician Thank you for the pleasure participating in the care of this interesting patient <Gerry Hoover - Last Filed: 08/09/18 22:59> Objective - Vital Signs/Intake and Output Vital Signs (last 24 hours): Temp Pulse Resp BP Pulse Ox 98.0 F 110 H 36 H 88/57 L 95 08/09/18 22:15 08/09/18 22:15 08/09/18 22:15 08/09/18 22:15 08/09/18 16:47 Intake and Output: 08/09/18 08/10/18 18:59 06:59 Intake Total 415 1325 Output Total 300 Balance 415 1025 - Medications Medications: Current Medications Acetaminophen (Tylenol 325mg Tab) 650 mg PO Q4H PRN PRN Reason: Fever >100.4 F Last Admin: 08/09/18 05:52 Dose: 650 mg Albuterol/Ipratropium (Duoneb 3 Mg/0.5 Mg (3 Ml) Ud) 3 ml IH [id number] PRN PRN Reason: Shortness of Breath Amlodipine Besylate (Norvasc) 10 mg PO DAILY [facility] Last Admin: 08/09/18 10:06 Dose: 10 mg Arformoterol Tartrate (Brovana) 15 mcg IH [id number] [facility] Last Admin: 08/09/18 19:47 Dose: 15 mcg Atenolol (Tenormin) 25 mg PO BID [facility] Last Admin: 08/09/18 17:15 Dose: Not Given Budesonide (Pulmicort Respules) 0.5 mg IH BIDRESP [facility] Last Admin: 08/09/18 19:47 Dose: 0.5 mg Clonazepam (Klonopin) 0.5 mg PO BID [facility]; Protocol Last Admin: 08/09/18 17:14 Dose: 0.5 mg Diphenhydramine HCl (Benadryl) 25 mg IVP Q4H PRN PRN Reason: Allergy symptoms Last Admin: 08/09/18 18:03 Dose: 25 mg Enoxaparin Sodium (Lovenox) 40 mg SC DAILY [facility]; Protocol Ergocalciferol (Drisdol 50,000 Intl Units Cap) 1 cap PO SUN [facility] Sodium Chloride (Sodium Chloride 0.9%) 1,000 mls @ 100 mls/hr IV .Q10H [facility] Last Admin: 08/09/18 05:54 Dose: 100 mls/hr Meropenem (Merrem Iv 1 Gm Premix) 1 gm in 50 mls @ 100 mls/hr IVPB Q8 [facility]; Protocol Stop: 08/16/18 22:01 Last Admin: 08/09/18 21:40 Dose: 100 mls/hr Vancomycin HCl (Vancomycin 1gm) 1 gm in 250 mls @ 167 mls/hr IVPB Q12 [facility]; Protocol Stop: 08/16/18 22:01 Last Admin: 08/09/18 10:07 Dose: 167 mls/hr Ibuprofen (Motrin Tab) 400 mg PO Q6H PRN PRN Reason: Fever >100.4 F Loratadine (Claritin) 10 mg PO DAILY [facility] Last Admin: 08/09/18 10:06 Dose: 10 mg Losartan Potassium (Cozaar) 50 mg PO QPM [facility] Last Admin: 08/09/18 17:15 Dose: Not Given Magnesium Oxide (Mag-Ox) 400 mg PO BID [facility] Last Admin: 08/09/18 17:14 Dose: 400 mg Mirtazapine (Remeron) 15 mg PO HS [facility] Last Admin: 08/09/18 21:39 Dose: 15 mg Montelukast Sodium (Singulair) 10 mg PO DAILY [facility] Last Admin: 08/09/18 10:07 Dose: 10 mg Nicotine (Nicoderm Cq) 1 patch TD DAILY [facility] Last Admin: 08/09/18 10:22 Dose: Not Given Non-Formulary Medication (Vitamin B Complex [Super B-50 Complex]) 1 cap PO DAILY [facility] Last Admin: 08/09/18 10:04 Dose: Not Given Ondansetron HCl (Zofran Inj) 4 mg IVP Q6H PRN PRN Reason: Nausea/Vomiting Last Admin: 08/09/18 09:36 Dose: 4 mg Oxycodone/Acetaminophen (Percocet 5/325 Mg Tab) 1 tab PO Q6H [facility] Stop: 08/10/18 16:31 Last Admin: 08/09/18 21:39 Dose: 1 tab Pantoprazole Sodium (Protonix Ec Tab) 40 mg PO DAILY [facility] Last Admin: 08/09/18 10:45 Dose: 40 mg Potassium Chloride (K-Dur 20 Meq Er Tab) 20 meq PO DAILY [facility] Last Admin: 08/09/18 10:06 Dose: 20 meq Sodium Chloride ([place] Nasal [place]) 0 ml NS QID [facility] Last Admin: 08/09/18 17:15 Dose: Not Given Tiotropium [place] (Spiriva) 18 mcg INH DAILY [facility] Last Admin: 08/09/18 10:07 Dose: 18 mcg - Labs Labs: 08/09/18 07:00 08/09/18 07:00 Assessment and Plan - Assessment and Plan (Free Text) Plan: Infectious Diseases Attending Physician Attestation Patient seen and examined at bedside, discussed with medical lab scientist. I have reviewed the HPI, ROS, physical examination findings. I have also reviewed the pertinent labs and diagnostic imaging. I have fully participiated in the care of this patient. I agree with the above findings, assessment, plan. In addition, will continue Vancomycin and MErrem for SIRS with fevers due to ileitis / colitis in this patient with high-grade MDS. Stool for C. diff is negative. Follow up final culture results.
--- NOTE | 2018-08-09 15:37 | US ---
PROCEDURE: Left upper extremity venous ultrasound HISTORY: Arm pain and swelling. Evaluate for deep venous thrombosis. PHYSICIAN(S): Killian Zhou MD. FINDINGS: Left internal jugular vein is sonographically normal and compressible. A central catheter is seen in the left subclavian vein. There is extensive occlusive thrombus related to the catheter noted in the left subclavian, axillary, and brachial veins. IMPRESSION: 1. Extensive catheter-associated thrombus noted in the left subclavian, axillary, and upper brachial veins.
--- NOTE | 2018-08-09 18:45 | CP.PCM.PCO ---
Assessment & Plan - Assessment and Plan (Free Text) Assessment: Patient is a 53-year-old female with a past medical history of myelodysplastic syndrome status post chemotherapy, lung cancer status post lobectomy, right breast mastectomy, chronic obstructive pulmonary disease, and endocarditis who presented for evaluation of fever found to be septic secondary to pancolitis. Patient complained today of heaviness and pain in her left upper extremity. Duplex US was ordered which revealed extensive catheter associatd thrombus in left subclavian, axillary, and upper brachial veins. Plan: -PICC line removed from Left UE -Lovenox 40 mg daily SC started -Keep left UE elevated -Repeat CBC in morning - Functional Status Prior to Admission: Febrile, poor prognosis considering history of MDS, breast ca, lung ca Current Status: Poor prognosis Impairment Code: Palliative care
[2018-08-09] MEDS ORDERED: Potassium & Sodium Phosphate PO ONE (23:45)
[2018-08-10 00:18] LABS: BASO # 0.01 K/mm3 (0.0-2.0); BASO % 0.2 % (0.0-3.0); EOS % 0.2 % (1.5-5.0); MEAN CELL VOLUME 87.5 fl (80.0-105.0); MEAN CORPUSCULAR HEMOGLOBIN 29.2 pg (25.0-35.0); MEAN CORPUSCULAR HGB CONC 33.3 g/dl (31.0-37.0); MONO # 0.7 (0.1-0.6); MONO % 15.2 % (1.0-6.0); RED CELL DISTRIBUTION WIDTH 15.8 % (11.5-14.5); WHITE BLOOD COUNT 4.3 10^3/uL (4.5-11.0)
[2018-08-10 00:20] LABS: HEMOGLOBIN 10.5 g/dL (12.0-16.0)
[2018-08-10 00:33] LABS: PLATELET COUNT 9 10^3/uL (120.0-450.0)
[2018-08-10 02:45] LABS: BAND 3 % (0-2); LYMPHOCYTE 14 % (22.0-35.0); NEUTROPHIL 30 % (50.0-70.0)
[2018-08-10 02:46] LABS: ATYPICAL LYMPHOCYTE 4 % (0.0-0.0); EOSINOPHIL 35 % (0.0-3.0)
[2018-08-10 02:47] LABS: MONOCYTE 14 % (1.0-6.0); PLATELET ESTIMATE LOW (NORMAL)
[2018-08-10] MEDS: Vancomycin 1gm in NS 250ml 1 GM/250 ML BAG IVPB SCH ×2 (03:07→10:25)
[2018-08-10] MEDS ORDERED: Oxycodone/Acetaminophen 5/325 mg Tab PO STA ×2 (03:15→22:43)
[2018-08-10] MEDS: Meropenem IV 1 gm in NS 1 GM/50 ML BAG IVPB SCH ×3 (05:02→22:22)
[2018-08-10 06:49] LABS: HEMOGLOBIN 9.8 g/dL (12.0-16.0); MEAN CELL VOLUME 87.4 fl (80.0-105.0); MEAN CORPUSCULAR HEMOGLOBIN 28.8 pg (25.0-35.0); MEAN PLATELET VOLUME 9.2 fl (7.0-11.0); PLATELET COUNT 62 10^3/uL (120.0-450.0); RED CELL DISTRIBUTION WIDTH 16.3 % (11.5-14.5); WHITE BLOOD COUNT 4.7 10^3/uL (4.5-11.0)
[2018-08-10 07:25] LABS: ALB/GLOB RATIO 0.8 (1.1-1.8); ALBUMIN 2.6 g/dL (3.0-4.8); ALT/SGPT 16 U/L (7-56); AST/SGOT 22 U/L (14-36); BLOOD UREA NITROGEN 19 mg/dL (7-21); GFR NON-AFRICAN AMERICAN 52
--- NOTE | 2018-08-10 07:56 | CP.PCM.PN ---
Subjective - Date & Time of Evaluation Date of Evaluation: 08/10/18 Time of Evaluation: 07:53 - Subjective Subjective: Christopher Roberson DO, PGY-1 Hematology/Oncology Progress Note for Dr. Lopez Patient was seen and examined at bedside this AM. She remained afebrile overnight but was persistently tachycardic and had episode of hypotension overnight. Patient was noted to have worsening LUE pain near the PICC site last night and US was positive for extensive LUE DVT. Case was discussed with Dr. Zhou last night after positive result and was recommended she be placed on lovenox despite low platelet count. She reports LUE pain is improved but persistent this AM. She also continues to complain of some nausea but has not vomited. She otherwise denies fever/chills, CP, SOB, dysuria, urinary frequency, RUSSELL, or changes in vision. Objective - Vital Signs/Intake and Output Vital Signs (last 24 hours): Temp Pulse Resp BP Pulse Ox 97.5 F L 115 H 24 93/57 L 95 08/10/18 02:56 08/10/18 02:56 08/10/18 02:56 08/10/18 02:56 08/09/18 16:47 Intake and Output: 08/10/18 08/10/18 06:59 18:59 Intake Total 1934 Output Total 300 Balance 1634 - Medications Medications: Current Medications Acetaminophen (Tylenol 325mg Tab) 650 mg PO Q4H PRN PRN Reason: Fever >100.4 F Last Admin: 08/09/18 05:52 Dose: 650 mg Albuterol/Ipratropium (Duoneb 3 Mg/0.5 Mg (3 Ml) Ud) 3 ml IH [id number] PRN PRN Reason: Shortness of Breath Amlodipine Besylate (Norvasc) 10 mg PO DAILY [facility] [place] Last Admin: 08/09/18 10:06 Dose: 10 mg Arformoterol Tartrate (Brovana) 15 mcg IH [id number] [facility] [place] Last Admin: 08/09/18 19:47 Dose: 15 mcg Atenolol (Tenormin) 25 mg PO BID [facility] Last Admin: 08/09/18 17:15 Dose: Not Given Budesonide (Pulmicort Respules) 0.5 mg IH BIDRESP [facility] [place] Last Admin: 08/09/18 19:47 Dose: 0.5 mg Clonazepam (Klonopin) 0.5 mg PO BID [facility] [place]; Protocol Last Admin: 08/09/18 17:14 Dose: 0.5 mg Diphenhydramine HCl (Benadryl) 25 mg IVP Q4H PRN PRN Reason: Allergy symptoms Last Admin: 08/09/18 18:03 Dose: 25 mg Enoxaparin Sodium (Lovenox) 40 mg SC DAILY [facility] [place]; Protocol Ergocalciferol (Drisdol 50,000 Intl Units Cap) 1 cap PO SUN [facility] [place] Sodium Chloride (Sodium Chloride 0.9%) 1,000 mls @ 100 mls/hr IV .Q10H [facility] [place] Last Admin: 08/09/18 05:54 Dose: 100 mls/hr Meropenem (Merrem Iv 1 Gm Premix) 1 gm in 50 mls @ 100 mls/hr IVPB Q8 [facility]; Protocol Stop: 08/16/18 22:01 Last Admin: 08/10/18 05:02 Dose: 100 mls/hr Vancomycin HCl (Vancomycin 1gm) 1 gm in 250 mls @ 167 mls/hr IVPB Q12 [facility]; Protocol Stop: 08/16/18 22:01 Last Admin: 08/10/18 03:07 Dose: 167 mls/hr Ibuprofen (Motrin Tab) 400 mg PO Q6H PRN PRN Reason: Fever >100.4 F Last Admin: 08/10/18 01:58 Dose: 400 mg Loratadine (Claritin) 10 mg PO DAILY [facility] [place] Last Admin: 08/09/18 10:06 Dose: 10 mg Losartan Potassium (Cozaar) 50 mg PO QPM [facility] [place] Last Admin: 08/09/18 17:15 Dose: Not Given Magnesium Oxide (Mag-Ox) 400 mg PO BID [facility] [place] Last Admin: 08/09/18 17:14 Dose: 400 mg Mirtazapine (Remeron) 15 mg PO HS [facility] [place] Last Admin: 08/09/18 21:39 Dose: 15 mg Montelukast Sodium (Singulair) 10 mg PO DAILY [facility] [place] Last Admin: 08/09/18 10:07 Dose: 10 mg Nicotine (Nicoderm Cq) 1 patch TD DAILY [facility] [place] Last Admin: 08/09/18 10:22 Dose: Not Given Non-Formulary Medication (Vitamin B Complex [Super B-50 Complex]) 1 cap PO DAILY [facility] [place] Last Admin: 08/09/18 10:04 Dose: Not Given Ondansetron HCl (Zofran Inj) 4 mg IVP Q6H PRN PRN Reason: Nausea/Vomiting Last Admin: 08/10/18 02:02 Dose: 4 mg Oxycodone/Acetaminophen (Percocet 5/325 Mg Tab) 1 tab PO Q6H [facility] [place] Stop: 08/10/18 16:31 Last Admin: 08/09/18 21:39 Dose: 1 tab Pantoprazole Sodium (Protonix Ec Tab) 40 mg PO DAILY [facility] [place] Last Admin: 08/09/18 10:45 Dose: 40 mg Potassium Chloride (K-Dur 20 Meq Er Tab) 20 meq PO DAILY [facility] [place] Last Admin: 08/09/18 10:06 Dose: 20 meq Sodium Chloride ([place] Nasal [place]) 0 ml NS QID [facility] [place] Last Admin: 08/10/18 00:02 Dose: Not Given Tiotropium [place] (Spiriva) 18 mcg INH DAILY [facility] [place] Last Admin: 08/09/18 10:07 Dose: 18 mcg - Labs Labs: 08/10/18 06:25 08/10/18 06:25 - Constitutional Appears: Non-toxic, No Acute Distress - Head Exam Head Exam: ATRAUMATIC - Eye Exam Eye Exam: EOMI, PERRL - ENT Exam ENT Exam: Mucous Membranes Moist - Neck Exam Neck Exam: Full ROM, Normal Inspection. absent: Lymphadenopathy - Respiratory Exam Respiratory Exam: Clear to Ausculation Bilateral, NORMAL BREATHING PATTERN. absent: Rales, Rhonchi, Wheezes - Cardiovascular Exam Cardiovascular Exam: Tachycardia, +S1, +S2. absent: Gallop, Rubs, Murmur - GI/Abdominal Exam GI & Abdominal Exam: Soft, Tenderness (diffuse tenderness to palpation, greatest LLQ). 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 She was evaluated in ED and subsequently admitted and placed on broad spectrum abx. Plan: LUE DVT Likely 2/2 PICC line on top of hypercoaguable state from hematologic malignancy PICC line removed last night, patient now has only peripheral access Continue with peripheral access for now, will consult IR for port placement for treatment of likely AML Case discussed with Dr. Zhou last night after positive result noted Placed on lovenox 40 mg sc daily despite low platelet count, first dose given last night Platelet count improved this AM s/p transfusion of 2 u platelets Will continue lovenox 40 mg sc daily Thrombocytopenia Likely 2/2 MDS which has now progressed to AML Flow cytometry results found > 60% myeloblasts, likely consistent with AML Will plan on repeat bone marrow bx to confirm diagnosis Will consult IR for port placement Will plan on bone marrow bx on the same day, if possible Initial therapy to include azacitidine, venetoclax Patient was afebrile but persistently tachycardic with episodes of hypotension overnight Will order single unit of FFP given patient's low albumin to replace intravascular volume, should improve hypotension Platelet counts improved s/p transfusion of 2 u platelets last night Continue motrin and tylenol PRN fever Palliative care consult placed, all recs appreciated Normocytic anemia 2/2 MDS which has now progressed to AML H/H improved s/p transfusion of 2 u PRBCs Continue to monitor, transfuse additional units PRN Fever, tachycardia Likely 2/2 extensive colitis C-diff toxin and antigen negative Stool cx, stool O and P, norovirus, enterovirus, cryptococcal stool studies pending TTE to r/o cx negative (HACEK organisms) endocarditis pending Blood cx negative x 48 hrs, urine cx negative ID following, all recs appreciated Case and plan reviewed and discussed with my attending Dr. John Roberson, IM Resident PGY-1
--- NOTE | 2018-08-10 08:14 | CP.PCM.PN ---
<Stewart Arroyo - Last Filed: 08/10/18 18:07> Subjective - Date & Time of Evaluation Date of Evaluation: 08/10/18 Time of Evaluation: 07:12 - Subjective Subjective: Stewart Arroyo PGY2 GI Progress Note for Dr. Dela Cruz Patient was seen and examined. Overnight, she had 1 episode of loose stools, with no associated fevers. abdomen remains tender, but is improving. PICC line was removed due to upper extremity extensive DVT. Objective - Vital Signs/Intake and Output Vital Signs (last 24 hours): Temp Pulse Resp BP Pulse Ox 97.5 F L 115 H 24 93/57 L 95 08/10/18 02:56 08/10/18 02:56 08/10/18 02:56 08/10/18 02:56 08/09/18 16:47 Intake and Output: 08/10/18 08/10/18 06:59 18:59 Intake Total 1934 Output Total 300 Balance 1634 - Medications Medications: Current Medications Acetaminophen (Tylenol 325mg Tab) 650 mg PO Q4H PRN PRN Reason: Fever >100.4 F Last Admin: 08/09/18 05:52 Dose: 650 mg Albuterol/Ipratropium (Duoneb 3 Mg/0.5 Mg (3 Ml) Ud) 3 ml IH [id number] PRN PRN Reason: Shortness of Breath Amlodipine Besylate (Norvasc) 10 mg PO DAILY [facility] Last Admin: 08/09/18 10:06 Dose: 10 mg Arformoterol Tartrate (Brovana) 15 mcg IH [id number] [facility] Last Admin: 08/09/18 19:47 Dose: 15 mcg Atenolol (Tenormin) 25 mg PO BID [facility] Last Admin: 08/09/18 17:15 Dose: Not Given Budesonide (Pulmicort Respules) 0.5 mg IH BIDRESP [facility] Last Admin: 08/09/18 19:47 Dose: 0.5 mg Clonazepam (Klonopin) 0.5 mg PO BID [facility]; Protocol Last Admin: 08/09/18 17:14 Dose: 0.5 mg Diphenhydramine HCl (Benadryl) 25 mg IVP Q4H PRN PRN Reason: Allergy symptoms Last Admin: 08/09/18 18:03 Dose: 25 mg Enoxaparin Sodium (Lovenox) 40 mg SC DAILY [facility]; Protocol Ergocalciferol (Drisdol 50,000 Intl Units Cap) 1 cap PO SUN [facility] Sodium Chloride (Sodium Chloride 0.9%) 1,000 mls @ 100 mls/hr IV .Q10H [facility] Last Admin: 08/09/18 05:54 Dose: 100 mls/hr Meropenem (Merrem Iv 1 Gm Premix) 1 gm in 50 mls @ 100 mls/hr IVPB Q8 [facility]; Protocol Stop: 08/16/18 22:01 Last Admin: 08/10/18 05:02 Dose: 100 mls/hr Vancomycin HCl (Vancomycin 1gm) 1 gm in 250 mls @ 167 mls/hr IVPB Q12 [facility]; Protocol Stop: 08/16/18 22:01 Last Admin: 08/10/18 03:07 Dose: 167 mls/hr Ibuprofen (Motrin Tab) 400 mg PO Q6H PRN PRN Reason: Fever >100.4 F Last Admin: 08/10/18 01:58 Dose: 400 mg Loratadine (Claritin) 10 mg PO DAILY [facility] Last Admin: 08/09/18 10:06 Dose: 10 mg Losartan Potassium (Cozaar) 50 mg PO QPM [facility] Last Admin: 08/09/18 17:15 Dose: Not Given Magnesium Oxide (Mag-Ox) 400 mg PO BID [facility] Last Admin: 08/09/18 17:14 Dose: 400 mg Mirtazapine (Remeron) 15 mg PO HS [facility] Last Admin: 08/09/18 21:39 Dose: 15 mg Montelukast Sodium (Singulair) 10 mg PO DAILY [facility] Last Admin: 08/09/18 10:07 Dose: 10 mg Nicotine (Nicoderm Cq) 1 patch TD DAILY [facility] Last Admin: 08/09/18 10:22 Dose: Not Given Non-Formulary Medication (Vitamin B Complex [Super B-50 Complex]) 1 cap PO DAILY [facility] Last Admin: 08/09/18 10:04 Dose: Not Given Ondansetron HCl (Zofran Inj) 4 mg IVP Q6H PRN PRN Reason: Nausea/Vomiting Last Admin: 08/10/18 02:02 Dose: 4 mg Oxycodone/Acetaminophen (Percocet 5/325 Mg Tab) 1 tab PO Q6H [facility] Stop: 08/10/18 16:31 Last Admin: 08/09/18 21:39 Dose: 1 tab Pantoprazole Sodium (Protonix Ec Tab) 40 mg PO DAILY [facility] Last Admin: 08/09/18 10:45 Dose: 40 mg Potassium Chloride (K-Dur 20 Meq Er Tab) 20 meq PO DAILY [facility] Last Admin: 08/09/18 10:06 Dose: 20 meq Sodium Chloride ([place] Nasal [place]) 0 ml NS QID [facility] Last Admin: 08/10/18 00:02 Dose: Not Given Tiotropium [place] (Spiriva) 18 mcg INH DAILY [facility] Last Admin: 08/09/18 10:07 Dose: 18 mcg - Labs Labs: 08/10/18 06:25 08/10/18 06:25 - Constitutional Appears: Non-toxic, Cachectic, Chronically Ill - Head Exam Head Exam: ATRAUMATIC, NORMAL INSPECTION - Eye Exam Eye Exam: EOMI, Normal appearance - ENT Exam ENT Exam: Mucous Membranes Moist, Normal Exam - Neck Exam Neck Exam: Full ROM, Normal Inspection - Respiratory Exam Respiratory Exam: NORMAL BREATHING PATTERN. absent: Respiratory Distress - Cardiovascular Exam Cardiovascular Exam: RRR, +S1, +S2 - GI/Abdominal Exam GI & Abdominal Exam: Soft, Tenderness (diffuse mild), Normal Bowel Sounds. absent: Distended - Extremities Exam Extremities Exam: Full ROM, Normal Inspection - Neurological Exam Neurological Exam: Alert, Awake - Skin Skin Exam: Normal Color, Warm Assessment and Plan - Assessment and Plan (Free Text) Assessment: 53 year old female with a PMH of MDS (high grade, s/p chemotherapy), immunosuppression, lung cancer (s/p lobectomy, 2017), breast cancer s/p R breast mastectomy (2004), COPD, and endocarditis who is admitted for fevers. Patient complaining of mild abdominal pain. Labs and scans were reviewed. CT abd showing pancolitis, cdiff was negative for toxin. Patient is not spiking fevers at this time, but continues to have loose bowel movements. Plan: - Abx per ID - would recommend Vanc PO for c.diff empiric treatment - c.diff PCR ordered - cont CLD at least another 24hrs; will need bowel rest - monitor H/H; transfusing per Heme/Onc - PICC line was removed due to DVT - Palliative care is following the case - [employer] referral is requested to ensure proper nutrition - further recs per Dr. Dela Cruz Case was reviewed and discussed with Dr. Dela Cruz <Efrem Dela Cruz V - Last Filed: 08/10/18 19:17> Objective - Vital Signs/Intake and Output Vital Signs (last 24 hours): Temp Pulse Resp BP Pulse Ox 98.6 F 77 14 106/63 97 08/10/18 16:31 08/10/18 16:31 08/10/18 16:31 08/10/18 17:26 08/10/18 16:31 - Medications Medications: Current Medications Acetaminophen (Tylenol 325mg Tab) 650 mg PO Q4H PRN PRN Reason: Fever >100.4 F Last Admin: 08/09/18 05:52 Dose: 650 mg Albuterol/Ipratropium (Duoneb 3 Mg/0.5 Mg (3 Ml) Ud) 3 ml IH [id number] PRN PRN Reason: Shortness of Breath Amlodipine Besylate (Norvasc) 10 mg PO DAILY [facility] Last Admin: 08/10/18 10:24 Dose: Not Given Arformoterol Tartrate (Brovana) 15 mcg IH [id number] [facility] Last Admin: 08/10/18 09:00 Dose: 15 mcg Atenolol (Tenormin) 25 mg PO BID [facility] Last Admin: 08/10/18 17:26 Dose: Not Given Budesonide (Pulmicort Respules) 0.5 mg IH BIDRESP [facility] Last Admin: 08/10/18 09:00 Dose: 0.5 mg Clonazepam (Klonopin) 0.5 mg PO BID [facility]; Protocol Last Admin: 08/10/18 17:16 Dose: 0.5 mg Diphenhydramine HCl (Benadryl) 25 mg IVP Q4H PRN PRN Reason: Allergy symptoms Last Admin: 08/09/18 18:03 Dose: 25 mg Enoxaparin Sodium (Lovenox) 40 mg SC DAILY [facility]; Protocol Last Admin: 08/10/18 10:23 Dose: 40 mg Ergocalciferol (Drisdol 50,000 Intl Units Cap) 1 cap PO SUN [facility] Sodium Chloride (Sodium Chloride 0.9%) 1,000 mls @ 100 mls/hr IV .Q10H [facility] Last Admin: 08/09/18 05:54 Dose: 100 mls/hr Meropenem (Merrem Iv 1 Gm Premix) 1 gm in 50 mls @ 100 mls/hr IVPB Q8 [facility]; Protocol Stop: 08/16/18 22:01 Last Admin: 08/10/18 13:55 Dose: 100 mls/hr Ibuprofen (Motrin Tab) 400 mg PO Q6H PRN PRN Reason: Fever >100.4 F Last Admin: 08/10/18 01:58 Dose: 400 mg Loratadine (Claritin) 10 mg PO DAILY [facility] Last Admin: 08/10/18 10:24 Dose: 10 mg Losartan Potassium (Cozaar) 50 mg PO QPM [facility] Last Admin: 08/09/18 17:15 Dose: Not Given Magnesium Oxide (Mag-Ox) 400 mg PO BID [facility] Last Admin: 08/10/18 17:16 Dose: 400 mg Mirtazapine (Remeron) 15 mg PO HS [facility] Last Admin: 08/09/18 21:39 Dose: 15 mg Montelukast Sodium (Singulair) 10 mg PO DAILY [facility] Last Admin: 08/10/18 10:25 Dose: 10 mg Nicotine (Nicoderm Cq) 1 patch TD DAILY [facility] Last Admin: 08/10/18 10:27 Dose: Not Given Non-Formulary Medication (Vitamin B Complex [Super B-50 Complex]) 1 cap PO DAILY [facility] Last Admin: 08/10/18 10:25 Dose: Not Given Ondansetron HCl (Zofran Inj) 4 mg IVP Q6H PRN PRN Reason: Nausea/Vomiting Last Admin: 08/10/18 02:02 Dose: 4 mg Pantoprazole Sodium (Protonix Ec Tab) 40 mg PO DAILY [facility] Last Admin: 08/10/18 10:25 Dose: 40 mg Potassium Chloride (K-Dur 20 Meq Er Tab) 20 meq PO DAILY [facility] Last Admin: 08/10/18 10:24 Dose: 20 meq Sodium Chloride ([place] Nasal [place]) 0 ml NS QID [facility] Last Admin: 08/10/18 17:26 Dose: Not Given Tiotropium [place] (Spiriva) 18 mcg INH DAILY [facility] Last Admin: 08/10/18 10:25 Dose: 18 mcg - Labs Labs: 08/10/18 06:25 08/10/18 06:25 Attending/Attestation - Attestation I have personally seen and examined this patient.: Yes I have fully participated in the care of the patient.: Yes I have reviewed all pertinent clinical information, including history, physical exam and plan: Yes Notes (Text): This patient was seen and evaluated here earlier with the resident. This is an addendum to the GI progress report dictated by the resident. Patient is on liquid diet. The CT scan was reviewed again shows significant colitis. The etiology is unclear for her pancolitis .Stool for C. difficile has been negative but patient did have history of C. difficile colitis in the past. Patient does have pancolitis now. The differential diagnosis should include inflammatory or infectious or C. difficile colitis. In this clinical scenario the patient ,who is immunocompromised with the previous history of C. difficile colitis that the likelihood of C. difficile colitis has to be considered even though the stool for C. difficile has been negative. Patient has been on IV vancomycin. P.o. Vanco has been discontinued by ID. Will discuss with ID. Thank you for allowing us to participate in the care of the patient we will continue to closely follow-up her care and suggest further recommendations based on the clinical course 08/10/18 19:12
[2018-08-10 08:20] LABS: PLATELET COUNT MANUAL 80 K/mm3 (120-450)
[2018-08-10 08:38] LABS: BAND 1 % (0-2); EOSINOPHIL 34 % (0.0-3.0); LYMPHOCYTE 25 % (22.0-35.0); MONOCYTE 9 % (1.0-6.0); NEUTROPHIL 31 % (50.0-70.0); PLATELET ESTIMATE LOW (NORMAL)
[2018-08-10] MEDS: Arformoterol 15 mcg/2 ml Inh Sol IH SCH ×2 (09:00→19:38)
[2018-08-10] MEDS: Budesonide 0.5 mg/2 ml Inhal Susp UD IH SCH ×2 (09:00→19:38)
[2018-08-10] MEDS ORDERED: Enoxaparin 40 mg Syringe SC SCH (10:00)
[2018-08-10] MEDS: Enoxaparin 40 mg Syringe SC SCH (10:23)
[2018-08-10] MEDS: Potassium Chloride 20 mEq ER Tab PO SCH (10:24)
[2018-08-10] MEDS: Tiotropium 18 mcg Cap For Inhalation INH SCH (10:25)
[2018-08-10] MEDS: Magnesium Oxide 400 mg Tab UD PO SCH ×2 (10:25→17:16)
[2018-08-10] MEDS: Pantoprazole 40 mg EC Tab PO SCH (10:25)
[2018-08-10] MEDS: Non Formulary Medication (Vitamin B Complex [Super B-50 Complex] 1 CAP) PO SCH (10:25)
--- NOTE | 2018-08-10 10:28 | CT ---
Date of service: 08/10/2018 PROCEDURE: CT of the left upper extremity HISTORY: Look for collection of blood COMPARISON: TECHNIQUE: Radiation dose: Total exam DLP = 536 mGy-cm. This CT exam was performed using one or more of the following dose reduction techniques: Automated exposure control, adjustment of the mA and/or kV according to patient size, and/or use of iterative reconstruction technique. FINDINGS: There is subcutaneous edema surrounding the arm. There is muscular edema and swelling of the latissimus muscle as well as the biceps muscle. There is no evidence of a discrete hematoma. There is no evidence of fracture. IMPRESSION: There is subcutaneous edema surrounding the arm. There is muscular edema and swelling of the latissimus muscle as well as the biceps muscle. There is no evidence of a discrete hematoma. There is no evidence of fracture.
[2018-08-10] MEDS: Oxycodone/Acetaminophen 5/325 mg Tab PO SCH ×2 (10:37→17:15)
--- NOTE | 2018-08-10 11:35 | CP.PCM.PN ---
<Scar Bermeo - Last Filed: 08/10/18 11:32> Subjective - Date & Time of Evaluation Date of Evaluation: 08/10/18 Time of Evaluation: 07:45 - Subjective Subjective: Scar Bermeo D.O. PGY-3, Internal Medicine Resident, Infectious Disease Progress Note 53-year-old female with a past medical history of myelodysplastic syndrome status post chemotherapy, lung cancer status post lobectomy, right breast mastec leonard, chronic obstructive pulmonary disease, and endocarditis who presented for platelet transfusion yesterday at the infusion clinic and was found to be febrile with a fever of 101.2. Infectious disease consultation was requested for his fever. Patient was seen and examined at bedside. Patient had a long day yesterday and was found to have a LUE DVT from PICC line. Having discomfort in that arm. Swollen. States feels tired but still fighting. Objective - Vital Signs/Intake and Output Vital Signs (last 24 hours): Temp Pulse Resp BP Pulse Ox 98.0 F 111 H 20 96/53 L 94 L 08/10/18 06:00 08/10/18 06:00 08/10/18 06:00 08/10/18 10:24 08/10/18 06:00 Intake and Output: 08/10/18 08/10/18 06:59 18:59 Intake Total 1934 Output Total 300 Balance 1634 - Medications Medications: Current Medications Acetaminophen (Tylenol 325mg Tab) 650 mg PO Q4H PRN PRN Reason: Fever >100.4 F Last Admin: 08/09/18 05:52 Dose: 650 mg Albuterol/Ipratropium (Duoneb 3 Mg/0.5 Mg (3 Ml) Ud) 3 ml IH [id number] PRN PRN Reason: Shortness of Breath Amlodipine Besylate (Norvasc) 10 mg PO DAILY [facility] Last Admin: 08/10/18 10:24 Dose: Not Given Arformoterol Tartrate (Brovana) 15 mcg IH [id number] [facility] Last Admin: 08/10/18 09:00 Dose: 15 mcg Atenolol (Tenormin) 25 mg PO BID [facility] Last Admin: 08/10/18 10:25 Dose: Not Given Budesonide (Pulmicort Respules) 0.5 mg IH BIDRESP [facility] Last Admin: 08/10/18 09:00 Dose: 0.5 mg Clonazepam (Klonopin) 0.5 mg PO BID [facility]; Protocol Last Admin: 08/10/18 10:23 Dose: 0.5 mg Diphenhydramine HCl (Benadryl) 25 mg IVP Q4H PRN PRN Reason: Allergy symptoms Last Admin: 08/09/18 18:03 Dose: 25 mg Enoxaparin Sodium (Lovenox) 40 mg SC DAILY [facility]; Protocol Last Admin: 08/10/18 10:23 Dose: 40 mg Ergocalciferol (Drisdol 50,000 Intl Units Cap) 1 cap PO SUN [facility] Sodium Chloride (Sodium Chloride 0.9%) 1,000 mls @ 100 mls/hr IV .Q10H [facility] Last Admin: 08/09/18 05:54 Dose: 100 mls/hr Meropenem (Merrem Iv 1 Gm Premix) 1 gm in 50 mls @ 100 mls/hr IVPB Q8 [facility]; Protocol Stop: 08/16/18 22:01 Last Admin: 08/10/18 05:02 Dose: 100 mls/hr Vancomycin HCl (Vancomycin 1gm) 1 gm in 250 mls @ 167 mls/hr IVPB Q12 [facility]; Protocol Stop: 08/16/18 22:01 Last Admin: 08/10/18 10:25 Dose: 167 mls/hr Ibuprofen (Motrin Tab) 400 mg PO Q6H PRN PRN Reason: Fever >100.4 F Last Admin: 08/10/18 01:58 Dose: 400 mg Loratadine (Claritin) 10 mg PO DAILY [facility] Last Admin: 08/10/18 10:24 Dose: 10 mg Losartan Potassium (Cozaar) 50 mg PO QPM [facility] Last Admin: 08/09/18 17:15 Dose: Not Given Magnesium Oxide (Mag-Ox) 400 mg PO BID [facility] Last Admin: 08/10/18 10:25 Dose: 400 mg Mirtazapine (Remeron) 15 mg PO HS [facility] Last Admin: 08/09/18 21:39 Dose: 15 mg Montelukast Sodium (Singulair) 10 mg PO DAILY [facility] Last Admin: 08/10/18 10:25 Dose: 10 mg Nicotine (Nicoderm Cq) 1 patch TD DAILY [facility] Last Admin: 08/10/18 10:27 Dose: Not Given Non-Formulary Medication (Vitamin B Complex [Super B-50 Complex]) 1 cap PO GRAHAM Y [facility] Last Admin: 08/10/18 10:25 Dose: Not Given Ondansetron HCl (Zofran Inj) 4 mg IVP Q6H PRN PRN Reason: Nausea/Vomiting Last Admin: 08/10/18 02:02 Dose: 4 mg Oxycodone/Acetaminophen (Percocet 5/325 Mg Tab) 1 tab PO Q6H [facility] Stop: 08/10/18 16:31 Last Admin: 08/10/18 10:37 Dose: 1 tab Pantoprazole Sodium (Protonix Ec Tab) 40 mg PO DAILY [facility] Last Admin: 08/10/18 10:25 Dose: 40 mg Potassium Chloride (K-Dur 20 Meq Er Tab) 20 meq PO DAILY [facility] Last Admin: 08/10/18 10:24 Dose: 20 meq Sodium Chloride ([place] Nasal [place]) 0 ml NS QID [facility] Last Admin: 08/10/18 10:26 Dose: Not Given Tiotropium [place] (Spiriva) 18 mcg INH DAILY [facility] Last Admin: 08/10/18 10:25 Dose: 18 mcg - Labs Labs: 08/10/18 06:25 08/10/18 06:25 - Constitutional Appears: Chronically Ill female - Head Exam Head Exam: ATRAUMATIC, NC - Eye Exam Eye Exam: EOMI, PERRL. absent: Scleral icterus - ENT Exam ENT Exam: Mucous Membranes Moist, Normal Oropharynx, no palate petechiae - Neck Exam Neck exam: Positive for: Normal Inspection. Negative for: Lymphadenopathy - Respiratory Exam Respiratory Exam: Clear to Auscultation Bilateral. absent: Rales, Rhonchi, Wheezes - Cardiovascular Exam Cardiovascular Exam: RRR, +S1, +S2. absent: Gallop, Rubs - GI/Abdominal Exam GI & Abdominal Exam: less tender, soft - Extremities Exam Extremities exam: Negative for: calf tenderness, pedal edema - Neurological Exam Neurological exam: Alert, Oriented x4 - Psychiatric Exam Psychiatric exam: Normal Affect, Normal Mood - Skin Skin Exam: Dry, Warm Assessment and Plan - Assessment and Plan (Free Text) Assessment: 53-year-old female with a past medical history of myelodysplastic syndrome status post chemotherapy, lung cancer status post lobectomy, right breast ma stectomy, chronic obstructive pulmonary disease, and endocarditis who presented for platelet transfusion yesterday at the infusion clinic and was found to be febrile with a fever of 101.2. Infectious disease consultation was requested for his fever. Plan: Sepsis likely 2/2 pancolitis Immunocompromise state LUE DVT 2/2 PICC line High-grade myelodysplastic syndrome with thrombocytopenia Lung cancer status post lobectomy C diff was negative so no PO vanco Blood cultures negative 2/2 day 2 Continue with meropenem/vanco day [address] Arroyo's note reviewed and appreciated Hem/Onc Dr. Roberson's note reviewed and appreciated Overall prognosis is poor We will follow with you Patient was seen and examined and case to be discussed with attending physician Thank you for the pleasure participating in the care of this interesting patient <Terrance Juan - Last Filed: 08/10/18 12:12> Objective - Vital Signs/Intake and Output Vital Signs (last 24 hours): Temp Pulse Resp BP Pulse Ox 98.0 F 111 H 20 96/53 L 94 L 08/10/18 06:00 08/10/18 06:00 08/10/18 06:00 08/10/18 10:24 08/10/18 06:00 Intake and Output: 08/10/18 08/10/18 06:59 18:59 Intake Total 1934 Output Total 300 Balance 1634 - Medications Medications: Current Medications Acetaminophen (Tylenol 325mg Tab) 650 mg PO Q4H PRN PRN Reason: Fever >100.4 F Last Admin: 08/09/18 05:52 Dose: 650 mg Albuterol/Ipratropium (Duoneb 3 Mg/0.5 Mg (3 Ml) Ud) 3 ml IH [id number] PRN PRN Reason: Shortness of Breath Amlodipine Besylate (Norvasc) 10 mg PO DAILY [facility] Last Admin: 08/10/18 10:24 Dose: Not Given Arformoterol Tartrate (Brovana) 15 mcg IH [id number] [facility] Last Admin: 08/10/18 09:00 Dose: 15 mcg Atenolol (Tenormin) 25 mg PO BID [facility] Last Admin: 08/10/18 10:25 Dose: Not Given Budesonide (Pulmicort Respules) 0.5 mg IH BIDRESP [facility] Last Admin: 08/10/18 09:00 Dose: 0.5 mg Clonazepam (Klonopin) 0.5 mg PO BID [facility]; Protocol Last Admin: 08/10/18 10:23 Dose: 0.5 mg Diphenhydramine HCl (Benadryl) 25 mg IVP Q4H PRN PRN Reason: Allergy symptoms Last Admin: 08/09/18 18:03 Dose: 25 mg Enoxaparin Sodium (Lovenox) 40 mg SC DAILY [facility]; Protocol Last Admin: 08/10/18 10:23 Dose: 40 mg Ergocalciferol (Drisdol 50,000 Intl Units Cap) 1 cap PO SUN [facility] Sodium Chloride (Sodium Chloride 0.9%) 1,000 mls @ 100 mls/hr IV .Q10H [facility] Last Admin: 08/09/18 05:54 Dose: 100 mls/hr Meropenem (Merrem Iv 1 Gm Premix) 1 gm in 50 mls @ 100 mls/hr IVPB Q8 [facility]; P rotocol Stop: 08/16/18 22:01 Last Admin: 08/10/18 05:02 Dose: 100 mls/hr Ibuprofen (Motrin Tab) 400 mg PO Q6H PRN PRN Reason: Fever >100.4 F Last Admin: 08/10/18 01:58 Dose: 400 mg Loratadine (Claritin) 10 mg PO DAILY [facility] Last Admin: 08/10/18 10:24 Dose: 10 mg Losartan Potassium (Cozaar) 50 mg PO QPM [facility] Last Admin: 08/09/18 17:15 Dose: Not Given Magnesium Oxide (Mag-Ox) 400 mg PO BID [facility] Last Admin: 08/10/18 10:25 Dose: 400 mg Mirtazapine (Remeron) 15 mg PO HS [facility] Last Admin: 08/09/18 21:39 Dose: 15 mg Montelukast Sodium (Singulair) 10 mg PO DAILY [facility] Last Admin: 08/10/18 10:25 Dose: 10 mg Nicotine (Nicoderm Cq) 1 patch TD DAILY [facility] Last Admin: 08/10/18 10:27 Dose: Not Given Non-Formulary Medication (Vitamin B Complex [Super B-50 Complex]) 1 cap PO DAILY [facility] Last Admin: 08/10/18 10:25 Dose: Not Given Ondansetron HCl (Zofran Inj) 4 mg IVP Q6H PRN PRN Reason: Nausea/Vomiting Last Admin: 08/10/18 02:02 Dose: 4 mg Oxycodone/Acetaminophen (Percocet 5/325 Mg Tab) 1 tab PO Q6H [facility] Stop: 08/10/18 16:31 Last Admin: 08/10/18 10:37 Dose: 1 tab Pantoprazole Sodium (Protonix Ec Tab) 40 mg PO DAILY [facility] Last Admin: 08/10/18 10:25 Dose: 40 mg Potassium Chloride (K-Dur 20 Meq Er Tab) 20 meq PO DAILY [facility] Last Admin: 08/10/18 10:24 Dose: 20 meq Sodium Chloride ([place] Nasal [place]) 0 ml NS QID [facility] Last Admin: 08/10/18 10:26 Dose: Not Given Tiotropium [place] (Spiriva) 18 mcg INH DAILY [facility] Last Admin: 08/10/18 10:25 Dose: 18 mcg - Labs Labs: 08/10/18 06:25 08/10/18 06:25 Attending/Attestation - Attestation I have personally seen and examined this patient.: Yes I have fully participated in the care of the patient.: Yes I have reviewed all pertinent clinical information, including history, physical exam and plan: Yes
--- NOTE | 2018-08-10 12:45 | PN ---
DATE: 08/10/2018 PULMONARY PROGRESS NOTE REFERRING PHYSICIAN: August Lara MD SUBJECTIVE: The patient is seen sitting up in bed. No acute distress at this time. The patient afebrile, had one loose bowel movement overnight. PICC line to left upper extremity was removed due to upper extremity deep venous thrombosis. The patient reports having periods of shortness of breath. No coughing. No headache, rhinitis, chest pain, nausea, vomiting, leg pain or leg swelling reported. OBJECTIVE: GENERAL: No acute distress. VITAL SIGNS: Blood pressure 96/53, pulse 111, temperature 98 and oxygen saturation 94%. HEENT: Moist mucous membranes. Crowded airway. Mallampati score of 4. NECK: Supple. No JVD. RESPIRATORY: Decreased breath sounds at bases. CARDIOVASCULAR: S1 and S2. ABDOMEN: Mild tenderness on palpation. No distention. EXTREMITIES: No bilateral lower extremity edema. Edema noted to left upper extremity. NEUROLOGIC: Awake, alert and verbal. Following commands. MEDICATIONS: Reviewed. Tylenol 650 mg every 4 hours p.r.n. fever greater than 100.4, DuoNeb 3 mL inhalation every 4 hours p.r.n., Norvasc 10 mg daily, Brovana 15 mcg every 12 hours, atenolol 25 mg twice a day, Pulmicort 0.5 mg inhalation twice a day, Klonopin 0.5 mg twice a day, Benadryl 25 mg IV push every 4 hours p.r.n., Lovenox 40 mg subcutaneously daily, ergocalciferol one cap weekly, Motrin 400 mg every 6 hours p.r.n. fever of greater than 100.4, Claritin 10 mg daily, Cozaar 50 mg in the evening, magnesium oxide 400 mg twice a day, meropenem 1 g every 8 hours, Remeron 15 mg at bedtime, Singulair 10 mg daily, nicotine patch transdermal daily, vitamin B complex one cap daily, Zofran 4 mg IV push every 6 hours p.r.n., Percocet one tab every 6 hours, Protonix 40 mg daily, potassium chloride 20 mEq daily, sodium chloride 0.9% a 1000 mL at 100 mL per hour, Frio nasal spray 4 times a day, Spiriva 18 mcg inhalation daily and vancomycin 1 g every 12 hours. LABORATORY DATA: Reviewed. WBC 4.7, RBC 3.4, hemoglobin 9.8, hematocrit 29.7, and platelets 62. Sodium 140, potassium 4.1, chloride 110, carbon dioxide 19, anion gap 15, BUN 19, creatinine 1.1, GFR greater than 60, random glucose 102, calcium 8, total bilirubin 2.5, AST 22, ALT 16, alkaline phosphatase 124, total protein 5.8, albumin 2.6, globulin 3.2, and albumin-globulin ratio of 0.8. C. diff negative. Blood cultures preliminary no growth after 48 hours. Upper extremity CAT scan shows subcutaneous edema surrounding the arm, muscular edema and swelling of the latissimus muscle as well as the biceps muscle. No evidence of a discrete hematoma. No evidence of fracture. Upper extremity ultrasound shows extensive catheter associated thrombus noted in the left subclavian axillary and upper brachial veins. Abdomen pelvic CT shows diffuse thickening of the terminal ileus suspicious for inflammatory bowel disease, small bilateral pleural effusions. Pathology surgical specimen of peripheral blood shows increase in myeloblast 8%, monocyte 28% and eosinophil 26%. IMPRESSION AND PLAN: Procalcitonin is positive, suspected pneumonia healthcare-associated, immunocompromised high grade myelodysplastic syndrome, lung cancer status post lobectomy, thrombocytopenia, anemia, sickle cell anemia, asthma, chronic obstructive pulmonary disease, colitis seen on abdomen CT, thrombosis to left upper extremity, peripherally inserted central catheter line was removed. The patient is currently on Lovenox for anticoagulation. Risk versus benefits indicates that we do not fully anticoagulate this patient if any signs of bleeding or drop in hemoglobin and hematocrit, need to consider Lovenox to be stopped. Any signs of tachypnea or tachycardia, the patient will need VQ scan or CTA to rule out pulmonary embolism. Continue inhaled bronchodilators, gastric prophylaxis, antibiotics per Infectious Disease. Continue GI followup. Labs to be drawn in the morning. Pending echocardiogram, we will followup when available. This patient was seen and examined with Dr. Maurer. Discussed assessment and plan as described above. The patient was seen and examined with Henry Marquez, nurse practitioner. Discussed assessment and plan as described above. Thank you for this consult and we will follow with you. Henry Marquez APN Solange Maurer MD [facility] # [id number]
--- NOTE | 2018-08-10 13:13 | PN ---
DATE: 08/09/2018 SUBJECTIVE: She feels better. She complained of left arm swelling. The patient noted left arm swelling where the PICC line was inserted. PHYSICAL EXAMINATION: VITAL SIGNS: Her temperature is better at 99, heart rate is 82, blood pressure 95/82, respirations is 18. HEENT: Head and neck normal. No JVD. No thyromegaly. CHEST: Clear, but diminished breath sounds bilaterally. CARDIAC: First sound and second sound normal. No murmur, rub, or gallop. ABDOMEN: Soft and nontender. EXTREMITIES: No edema. NEUROLOGIC: Normal. LABORATORY DATA: Laboratory study is as follows: Sodium 140, potassium 4.1, chloride 110, bicarb 90, BUN 19, creatinine 1.1, blood calcium level is 8, total bilirubin 2.5. Liver function test is normal. White count 4.6, hemoglobin 10.5, hematocrit 31.5, platelets 89,000. IMPRESSION AND PLAN: 1. Left arm swelling. The patient was going for venous Doppler ultrasound of her left upper extremity, which a few hours later came back positive. We will leave management of this to Dr. Lopez who recommend Lovenox 40 mg subcutaneously daily and monitor her platelets. 2. The patient has acute myeloid leukemia, bone marrow suppression, myelodysplastic syndrome, severe thrombocytopenia. The patient has been getting repeated platelet transfusions. I will continue supportive care for that. We will continue to support platelets with transfusions and follow up with Dr. Lopez on that. 3. She had a fever. Etiology could be the clot. So far, cultures are negative. Urine culture negative. Blood culture negative and also, she had a stool Clostridium difficile for antigen and toxin, which were negative. We will continue current medications. The patient is currently on Merrem 1 g IV every 8 hours. 4. Chronic obstructive pulmonary disease. Continue nicotine patch. Continue nebulizer treatment. Follow up with Dr. Maurer. 5. Blood pressure seems running low. We are having holding parameters on blood pressure medications. Continue to monitor her condition. 6. terminal ileum inflamation. f/up with gi consult 7. patient is a full code discussed patient daughter,poor prognosis August Lara MD MTDJatin
--- NOTE | 2018-08-10 17:52 | CP.PCM.PN ---
Subjective - Date & Time of Evaluation Date of Evaluation: 08/10/18 Time of Evaluation: 01:00 - Subjective Subjective: Patient was seen 00:100 am. BP 88/57,HR 110/min,RR 36/min,Temp-98*F,Pulse ox 95% on RA. C/o Left arm pain, little sob. No other complaints. Needs IV acces. # 22 angiocath was inserted in left hand dorsum. Medical record was reviewed. This 53 year old woman is admitted with fever. Has PMH of recent sepsis,breast cancer , lung tumor resection, pneumothorax, COPD,HTN, AML, thrombocytopenia. Objective - Vital Signs/Intake and Output Vital Signs (last 24 hours): Temp Pulse Resp BP Pulse Ox 98.6 F 77 14 106/63 97 08/10/18 16:31 08/10/18 16:31 08/10/18 16:31 08/10/18 17:26 08/10/18 16:31 Intake and Output: 08/10/18 08/10/18 06:59 18:59 Intake Total 1934 Output Total 300 Balance 1634 - Medications Medications: Current Medications Acetaminophen (Tylenol 325mg Tab) 650 mg PO Q4H PRN PRN Reason: Fever >100.4 F Last Admin: 08/09/18 05:52 Dose: 650 mg Albuterol/Ipratropium (Duoneb 3 Mg/0.5 Mg (3 Ml) Ud) 3 ml IH [id number] PRN PRN Reason: Shortness of Breath Amlodipine Besylate (Norvasc) 10 mg PO DAILY [facility] Last Admin: 08/10/18 10:24 Dose: Not Given Arformoterol Tartrate (Brovana) 15 mcg IH [id number] [facility] Last Admin: 08/10/18 09:00 Dose: 15 mcg Atenolol (Tenormin) 25 mg PO BID [facility] Last Admin: 08/10/18 17:26 Dose: Not Given Budesonide (Pulmicort Respules) 0.5 mg IH BIDRESP [facility] Last Admin: 08/10/18 09:00 Dose: 0.5 mg Clonazepam (Klonopin) 0.5 mg PO BID [facility]; Protocol Last Admin: 08/10/18 17:16 Dose: 0.5 mg Diphenhydramine HCl (Benadryl) 25 mg IVP Q4H PRN PRN Reason: Allergy symptoms Last Admin: 08/09/18 18:03 Dose: 25 mg Enoxaparin Sodium (Lovenox) 40 mg SC DAILY [facility]; Protocol Last Admin: 08/10/18 10:23 Dose: 40 mg Ergocalciferol (Drisdol 50,000 Intl Units Cap) 1 cap PO SUN [facility] Sodium Chloride (Sodium Chloride 0.9%) 1,000 mls @ 100 mls/hr IV .Q10H [facility] Last Admin: 08/09/18 05:54 Dose: 100 mls/hr Meropenem (Merrem Iv 1 Gm Premix) 1 gm in 50 mls @ 100 mls/hr IVPB Q8 [facility]; Protocol Stop: 08/16/18 22:01 Last Admin: 08/10/18 13:55 Dose: 100 mls/hr Ibuprofen (Motrin Tab) 400 mg PO Q6H PRN PRN Reason: Fever >100.4 F Last Admin: 08/10/18 01:58 Dose: 400 mg Loratadine (Claritin) 10 mg PO DAILY [facility] Last Admin: 08/10/18 10:24 Dose: 10 mg Losartan Potassium (Cozaar) 50 mg PO QPM [facility] Last Admin: 08/09/18 17:15 Dose: Not Given Magnesium Oxide (Mag-Ox) 400 mg PO BID [facility] Last Admin: 08/10/18 17:16 Dose: 400 mg Mirtazapine (Remeron) 15 mg PO HS [facility] Last Admin: 08/09/18 21:39 Dose: 15 mg Montelukast Sodium (Singulair) 10 mg PO DAILY [facility] Last Admin: 08/10/18 10:25 Dose: 10 mg Nicotine (Nicoderm Cq) 1 patch TD DAILY [facility] Last Admin: 08/10/18 10:27 Dose: Not Given Non-Formulary Medication (Vitamin B Complex [Super B-50 Complex]) 1 cap PO DAILY [facility] Last Admin: 08/10/18 10:25 Dose: Not Given Ondansetron HCl (Zofran Inj) 4 mg IVP Q6H PRN PRN Reason: Nausea/Vomiting Last Admin: 08/10/18 02:02 Dose: 4 mg Pantoprazole Sodium (Protonix Ec Tab) 40 mg PO DAILY [facility] Last Admin: 08/10/18 10:25 Dose: 40 mg Potassium Chloride (K-Dur 20 Meq Er Tab) 20 meq PO DAILY [facility] Last Admin: 08/10/18 10:24 Dose: 20 meq Sodium Chloride ([place] Nasal [place]) 0 ml NS QID [facility] Last Admin: 08/10/18 17:26 Dose: Not Given Tiotropium [place] (Spiriva) 18 mcg INH DAILY [facility] Last Admin: 08/10/18 10:25 Dose: 18 mcg - Labs Labs: 08/10/18 06:25 08/10/18 06:25 - Constitutional Appears: Well, No Acute Distress - Head Exam Head Exam: ATRAUMATIC, NORMAL INSPECTION, NORMOCEPHALIC - Eye Exam Eye Exam: Conjunctival injection (Pale), Normal appearance - ENT Exam ENT Exam: Mucous Membranes Moist, Normal External Ear Exam - Neck Exam Neck Exam: Normal Inspection - Respiratory Exam Respiratory Exam: Clear to Ausculation Bilateral, NORMAL BREATHING PATTERN - Cardiovascular Exam Cardiovascular Exam: REGULAR RHYTHM, +S1 (Normal), +S2 (Normal). absent: JVD - GI/Abdominal Exam GI & Abdominal Exam: absent: Distended - Rectal Exam Rectal Exam: Deferred - Exam Additional comments: Deferred. - Extremities Exam Additional comments: Left upper arm swollen,tender. - Back Exam Back Exam: NORMAL INSPECTION - Neurological Exam Neurological Exam: Alert, Awake, Oriented x3 - Psychiatric Exam Psychiatric exam: Normal Affect, Normal Mood - Skin Skin Exam: Dry, Pallor. absent: Rash Assessment and Plan - Assessment and Plan (Free Text) Assessment: Hypotension. Sepsis. Sinus Tachycardia. LUE DVT. R/O Hematoma -LUE. AML. Breast cancer. S/P Lung tumor resection. COPD. HTN. Plan: CBC with Diff. CT LUE. Platelet transfusion. Continue IVF @ 100 cc/hr. Cont. present management.
--- NOTE | 2018-08-10 22:02 | CARD ---
APPROVED REPORT Date of service: 08/10/2018 EXAM: Two-dimensional and M-mode echocardiogram with Doppler and color Doppler. INDICATION Infection:Rule out subacute bacterial endocarditis 2D DIMENSIONS RVDd3.5 (2.9-3.5cm)Left Atrium (2D)3.6 (1.6-4.0cm) IVSd1.1 (0.7-1.1cm)LVDd4.3 (3.9-5.9cm) PWd1.2 (0.7-1.1cm)LVDs3.4 (2.5-4.0cm) FS (%) 20.5 %LVEF (%)42.0 (>50%) M-Mode DIMENSIONS Aortic Root3.00 (2.2-3.7cm)Aortic Cusp Exc.1.90 (1.5-2.0cm) Aortic Valve AoV Peak Yfztknrc354.0cm/Lon Peak GR.8mmHg Mitral Valve MV E Wmzjyody313.0cm/sMV A Dcasbflf83.5cm/sE/A ratio1.5 TDI Lateral E' Peak V15.30cm/sMedial E' Peak V7.70cm/sE/Lateral E'7.6 E/Medial E'15.2 Pulmonary Valve PV Peak Fxagukku96.1cm/sPV Peak Grad.2mmHg Tricuspid Valve TR Peak [id number]/sRAP [id number] Peak Gr.36mmHg [id number] LEFT VENTRICLE The left ventricle is normal size. Posterior Wall shows Mild Hypertrophy. LV Systolic Function shows Mild Decrease. LV Ej.Fr: 42%. LV Anterior Wall is Hypokinetic. RIGHT VENTRICLE The right ventricle is normal size. The right ventricular systolic function is normal. ATRIA The left atrium size is normal. The right atrium size is normal. AORTIC VALVE The aortic valve is normal in structure. MITRAL VALVE The mitral valve is normal in structure. Mitral regurgitation is moderate. TRICUSPID VALVE The tricuspid valve is normal in structure. There is moderate to severe tricuspid regurgitation.RVSP: 46mm Hg. Mild Pulmonary Hypertension. PERICARDIAL EFFUSION There is no pericardial effusion. <Conclusion> The left ventricle is normal size. Posterior Wall shows Mild Hypertrophy. LV Systolic Function shows Mild Decrease. LV Ej.Fr: 42%. LV Anterior Wall is Hypokinetic. The right ventricle is normal size. The right ventricular systolic function is normal. The left atrium size is normal. The right atrium size is normal. The aortic valve is normal in structure. The mitral valve in some views show Posterior motion Suggestive of Prolapse. Mitral regurgitation is moderate. The tricuspid valve is normal in structure. There is moderate to severe tricuspid regurgitation.RVSP: 46mm Hg. Mild Pulmonary Hypertension. There is no pericardial effusion.
--- NOTE | 2018-08-11 02:18 | CP.PCM.PN ---
Subjective - Date & Time of Evaluation Date of Evaluation: 08/11/18 Time of Evaluation: 02:18 - Subjective Subjective: To be dictated Objective - Vital Signs/Intake and Output Vital Signs (last 24 hours): Temp Pulse Resp BP Pulse Ox 98.6 F 77 14 106/63 97 08/10/18 16:31 08/10/18 16:31 08/10/18 16:31 08/10/18 17:26 08/10/18 16:31 Intake and Output: 08/10/18 08/11/18 18:59 06:59 Intake Total 960 Balance 960 - Medications Medications: Current Medications Acetaminophen (Tylenol 325mg Tab) 650 mg PO Q4H PRN PRN Reason: Fever >100.4 F Last Admin: 08/09/18 05:52 Dose: 650 mg Albuterol/Ipratropium (Duoneb 3 Mg/0.5 Mg (3 Ml) Ud) 3 ml IH [id number] PRN PRN Reason: Shortness of Breath Amlodipine Besylate (Norvasc) 10 mg PO DAILY [facility] Last Admin: 08/10/18 10:24 Dose: Not Given Arformoterol Tartrate (Brovana) 15 mcg IH [id number] KAYLEIGH Last Admin: 08/10/18 19:38 Dose: 15 mcg Atenolol (Tenormin) 25 mg PO BID KAYLEIGH Last Admin: 08/10/18 17:26 Dose: Not Given Budesonide (Pulmicort Respules) 0.5 mg IH BIDRESP KAYLEIGH Last Admin: 08/10/18 19:38 Dose: 0.5 mg Clonazepam (Klonopin) 0.5 mg PO BID KAYLEIGH; Protocol Last Admin: 08/10/18 17:16 Dose: 0.5 mg Diphenhydramine HCl (Benadryl) 25 mg IVP Q4H PRN PRN Reason: Allergy symptoms Last Admin: 08/09/18 18:03 Dose: 25 mg Enoxaparin Sodium (Lovenox) 40 mg SC DAILY [facility]; Protocol Last Admin: 08/10/18 10:23 Dose: 40 mg Ergocalciferol (Drisdol 50,000 Intl Units Cap) 1 cap PO SUN [facility] Sodium Chloride (Sodium Chloride 0.9%) 1,000 mls @ 100 mls/hr IV .Q10H KAYLEIGH Last Admin: 08/09/18 05:54 Dose: 100 mls/hr Meropenem (Merrem Iv 1 Gm Premix) 1 gm in 50 mls @ 100 mls/hr IVPB Q8 [facility]; Protocol Stop: 08/16/18 22:01 Last Admin: 08/10/18 22:22 Dose: 100 mls/hr Ibuprofen (Motrin Tab) 400 mg PO Q6H PRN PRN Reason: Fever >100.4 F Last Admin: 08/10/18 01:58 Dose: 400 mg Loratadine (Claritin) 10 mg PO DAILY [facility] Last Admin: 08/10/18 10:24 Dose: 10 mg Losartan Potassium (Cozaar) 50 mg PO QPM [facility] Last Admin: 08/09/18 17:15 Dose: Not Given Magnesium Oxide (Mag-Ox) 400 mg PO BID [facility] Last Admin: 08/10/18 17:16 Dose: 400 mg Mirtazapine (Remeron) 15 mg PO HS [facility] Last Admin: 08/10/18 22:23 Dose: 15 mg Montelukast Sodium (Singulair) 10 mg PO DAILY [facility] Last Admin: 08/10/18 10:25 Dose: 10 mg Nicotine (Nicoderm Cq) 1 patch TD DAILY [facility] Last Admin: 08/10/18 10:27 Dose: Not Given Non-Formulary Medication (Vitamin B Complex [Super B-50 Complex]) 1 cap PO DAILY [facility] Last Admin: 08/10/18 10:25 Dose: Not Given Ondansetron HCl (Zofran Inj) 4 mg IVP Q6H PRN PRN Reason: Nausea/Vomiting Last Admin: 08/10/18 02:02 Dose: 4 mg Pantoprazole Sodium (Protonix Ec Tab) 40 mg PO DAILY [facility] Last Admin: 08/10/18 10:25 Dose: 40 mg Potassium Chloride (K-Dur 20 Meq Er Tab) 20 meq PO DAILY [facility] Last Admin: 08/10/18 10:24 Dose: 20 meq Sodium Chloride ([place] Nasal [place]) 0 ml NS QID [facility] Last Admin: 08/10/18 22:23 Dose: Not Given Tiotropium [place] (Spiriva) 18 mcg INH DAILY [facility] Last Admin: 08/10/18 10:25 Dose: 18 mcg - Labs Labs: 08/10/18 06:25 08/10/18 06:25
[2018-08-11] MEDS ORDERED: Oxycodone/Acetaminophen 5/325 mg Tab PO STA (02:51)
[2018-08-11] MEDS: Meropenem IV 1 gm in NS 1 GM/50 ML BAG IVPB SCH ×3 (06:08→21:55)
--- NOTE | 2018-08-11 07:22 | CP.PCM.PN ---
Subjective - Date & Time of Evaluation Date of Evaluation: 08/11/18 Time of Evaluation: 07:19 - Subjective Subjective: Leonidas aPrdo PGY2 - House Doctor Progress Note Patient complaining of chest pressure this AM upon awakening. She notes she is somewhat short of breath with elevated HR 130's per nursing. There is concern for tachycardia and tachypnea in the setting of the left upper extremity DVT. After reviewing Dr. Maurer's note and plan, patient is to be sent for V/Q scan this AM for further evaluation of DVT as well as troponin for concern for myocardial ischemia. EKG was preformed and reviewed this AM. No acute ST elevation/depression appreciated. Objective - Vital Signs/Intake and Output Vital Signs (last 24 hours): Temp Pulse Resp BP Pulse Ox 100.6 F H 77 14 106/63 97 08/11/18 06:08 08/10/18 16:31 08/10/18 16:31 08/10/18 17:26 08/10/18 16:31 Intake and Output: 08/11/18 08/11/18 06:59 18:59 Intake Total 960 Balance 960 - Medications Medications: Current Medications Acetaminophen (Tylenol 325mg Tab) 650 mg PO Q4H PRN PRN Reason: Fever >100.4 F Last Admin: 08/09/18 05:52 Dose: 650 mg Albuterol/Ipratropium (Duoneb 3 Mg/0.5 Mg (3 Ml) Ud) 3 ml IH [id number] PRN PRN Reason: Shortness of Breath Amlodipine Besylate (Norvasc) 10 mg PO DAILY [facility] Last Admin: 08/10/18 10:24 Dose: Not Given Arformoterol Tartrate (Brovana) 15 mcg IH [id number] [facility] Last Admin: 08/10/18 19:38 Dose: 15 mcg Atenolol (Tenormin) 25 mg PO BID [facility] Last Admin: 08/10/18 17:26 Dose: Not Given Budesonide (Pulmicort Respules) 0.5 mg IH BIDRESP [facility] Last Admin: 08/10/18 19:38 Dose: 0.5 mg Clonazepam (Klonopin) 0.5 mg PO BID [facility]; Protocol Last Admin: 08/10/18 17:16 Dose: 0.5 mg Diphenhydramine HCl (Benadryl) 25 mg IVP Q4H PRN PRN Reason: Allergy symptoms Last Admin: 08/09/18 18:03 Dose: 25 mg Enoxaparin Sodium (Lovenox) 40 mg SC DAILY [facility]; Protocol Last Admin: 08/10/18 10:23 Dose: 40 mg Ergocalciferol (Drisdol 50,000 Intl Units Cap) 1 cap PO SUN [facility] Sodium Chloride (Sodium Chloride 0.9%) 1,000 mls @ 100 mls/hr IV .Q10H [facility] Last Admin: 08/09/18 05:54 Dose: 100 mls/hr Meropenem (Merrem Iv 1 Gm Premix) 1 gm in 50 mls @ 100 mls/hr IVPB Q8 [facility]; Protocol Stop: 08/16/18 22:01 Last Admin: 08/11/18 06:08 Dose: 100 mls/hr Ibuprofen (Motrin Tab) 400 mg PO Q6H PRN PRN Reason: Fever >100.4 F Last Admin: 08/11/18 06:08 Dose: 400 mg Loratadine (Claritin) 10 mg PO DAILY [facility] Last Admin: 08/10/18 10:24 Dose: 10 mg Losartan Potassium (Cozaar) 50 mg PO QPM [facility] Last Admin: 08/09/18 17:15 Dose: Not Given Magnesium Oxide (Mag-Ox) 400 mg PO BID [facility] Last Admin: 08/10/18 17:16 Dose: 400 mg Mirtazapine (Remeron) 15 mg PO HS [facility] Last Admin: 08/10/18 22:23 Dose: 15 mg Montelukast Sodium (Singulair) 10 mg PO DAILY [facility] Last Admin: 08/10/18 10:25 Dose: 10 mg Nicotine (Nicoderm Cq) 1 patch TD DAILY [facility] Last Admin: 08/10/18 10:27 Dose: Not Given Non-Formulary Medication (Vitamin B Complex [Super B-50 Complex]) 1 cap PO DAILY [facility] Last Admin: 08/10/18 10:25 Dose: Not Given Ondansetron HCl (Zofran Inj) 4 mg IVP Q6H PRN PRN Reason: Nausea/Vomiting Last Admin: 08/10/18 02:02 Dose: 4 mg Pantoprazole Sodium (Protonix Ec Tab) 40 mg PO DAILY [facility] Last Admin: 03/29/19 10:25 Dose: 40 mg Potassium Chloride (K-Dur 20 Meq Er Tab) 20 meq PO DAILY [facility] Last Admin: 08/10/18 10:24 Dose: 20 meq Sodium Chloride ([place] Nasal [place]) 0 ml NS QID [facility] Last Admin: 08/10/18 22:23 Dose: Not Given Tiotropium [place] (Spiriva) 18 mcg INH DAILY [facility] Last Admin: 08/10/18 10:25 Dose: 18 mcg - Labs Labs: 08/10/18 06:25 08/10/18 06:25 - Head Exam Head Exam: ATRAUMATIC, NORMOCEPHALIC - Eye Exam Eye Exam: EOMI, PERRL - ENT Exam ENT Exam: Mucous Membranes Moist - Neck Exam Neck Exam: Full ROM - Respiratory Exam Respiratory Exam: Chest Wall Tenderness (anterior left sided chest), Clear to Ausculation Bilateral, NORMAL BREATHING PATTERN - Cardiovascular Exam Cardiovascular Exam: Tachycardia - GI/Abdominal Exam GI & Abdominal Exam: Soft, Normal Bowel Sounds. absent: Guarding, Rigid, Tenderness - Extremities Exam Additional comments: left upper extremity swelling - Neurological Exam Neurological Exam: Alert, Awake, Oriented x3 Additional comments: motor and sensory grossly intact - Psychiatric Exam Psychiatric exam: Normal Affect, Normal Mood - Skin Skin Exam: Dry, Warm Assessment and Plan - Assessment and Plan (Free Text) Assessment: 53 yo F with PMH of accelerated MDS (previously on cyclical therapy with cytaratine currently on hold secondary to previous hospital admission for PNA and acute drops in blood counts), immunosuppression, lung cancer (s/p lobectomy), R breast mastectomy, COPD who has been admitted for fever and recently discovered to have left upper extremity DVT. Plan: -EKG done this AM, reviewed and appreciated -f/u routine AM bloodwork -Troponin -V/Q scan this AM for evaluation of tachypnea and tachycardia in setting of left upper extremity DVT
[2018-08-11] MEDS: Arformoterol 15 mcg/2 ml Inh Sol IH SCH ×2 (07:43→19:53)
[2018-08-11] MEDS: Budesonide 0.5 mg/2 ml Inhal Susp UD IH SCH ×2 (07:44→19:54)
[2018-08-11 09:26] LABS: HEMOGLOBIN 9.2 g/dL (12.0-16.0); MEAN CELL VOLUME 86.2 fl (80.0-105.0); MEAN CORPUSCULAR HEMOGLOBIN 29.6 pg (25.0-35.0); MEAN CORPUSCULAR HGB CONC 34.3 g/dl (31.0-37.0); MEAN PLATELET VOLUME 10.3 fl (7.0-11.0); RBC 3.11 10^6/uL (3.5-6.1); WHITE BLOOD COUNT 5.9 10^3/uL (4.5-11.0)
[2018-08-11 09:30] LABS: PLATELET COUNT 28 10^3/uL (120.0-450.0)
[2018-08-11 09:31] LABS: PLATELET ESTIMATE LOW (NORMAL)
[2018-08-11] MEDS: Sodium Chloride 0.9% 1,000 ML IV SCH ×3 (09:37→09:40)
[2018-08-11] MEDS: Potassium Chloride 20 mEq ER Tab PO SCH (09:41)
[2018-08-11] MEDS: Magnesium Oxide 400 mg Tab UD PO SCH ×2 (09:42→17:18)
[2018-08-11] MEDS: Pantoprazole 40 mg EC Tab PO SCH (09:42)
[2018-08-11] MEDS: Tiotropium 18 mcg Cap For Inhalation INH SCH (09:42)
[2018-08-11 09:43] LABS: ALB/GLOB RATIO 0.9 (1.1-1.8); ALBUMIN 2.6 g/dL (3.0-4.8); ALT/SGPT 18 U/L (7-56); AST/SGOT 22 U/L (14-36); BLOOD UREA NITROGEN 19 mg/dL (7-21); CALCIUM 8.2 mg/dL (8.4-10.5); GFR NON-AFRICAN AMERICAN > 60
[2018-08-11] MEDS: Enoxaparin 40 mg Syringe SC SCH (09:43)
[2018-08-11 10:07] LABS: TROPONIN I 0.14 ng/mL
--- NOTE | 2018-08-11 10:25 | CP.PCM.PCO ---
Physician Communication Note - Physician Communication Note Physician Communication Note: Elevated troponin 0.14, call placed tp PMD, awaiting call back
[2018-08-11 10:36] LABS: PLATELET COUNT MANUAL 30 K/mm3 (120-450)
[2018-08-11] MEDS ORDERED: Potassium Chloride 20 mEq ER Tab PO STA (10:52)
[2018-08-11] MEDS ORDERED: Enoxaparin 60 mg Syringe SC SCH (13:00)
[2018-08-11] MEDS ORDERED: Sodium Chloride 0.9% 1,000 ML IV SCH (13:24)
--- NOTE | 2018-08-11 16:06 | PN ---
DATE: 08/11/2018 This is [facility] visit on the medical floor. For Dr. Lopez. SUBJECTIVE: The patient is a 53-year-old female, seen lying awake in bed, now known to have had a DVT in her left upper extremity with subcutaneous emphysema, also noted on CT scan. The patient is otherwise noted to have elevated troponin after a chest discomfort earlier today with Cardiology eval with Dr. Langley requested. However, she denies chest pain at this time. The patient is known to suffer from accelerated myelodysplastic syndrome with history of lung cancer, breast cancer, and thrombocytopenia which is being monitored with platelet transfusions as indicated. There is no active bleeding at this time. PHYSICAL EXAMINATION: VITAL SIGNS: Temperature 100.6, pulse 85, respirations 14, blood pressure 125/59, pulse ox of 93%. HEENT: Unremarkable. Tongue is moist. NECK: Supple. HEART: Tachy rate, regular rhythm. LUNGS: Scattered rhonchi. ABDOMEN: Soft and nontender. EXTREMITIES: +1 edema, left upper extremity with increased tenderness to gentle range of motion. SKIN: Otherwise warm, dry, and clear. LABORATORY DATA: The patient's labs were done. White blood cell count of 5.9, hemoglobin 9.2, hematocrit 26.8, platelet count of 28,000 with a manual of 30,000 with a lab error suspected yesterday as the patient's platelet count two days prior was 9,000, after platelets were transfused, the repeat platelet count the next day was 62,000 which is considered an error with the value today considered to be more indicative of actual platelet count. Again, manual platelet count 30,000 with no active bleeding. The patient's labs from today include a potassium of 3.2 which will be corrected, calcium 8.2, total bilirubin 3.8, troponin 0.14. The patient did have an EKG done early today. It has not been read yet with consult with Dr. Langley Cardiology pending. 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 PLAN: For this patient after conversation with Dr. Lopez is to continue her present medical regimen as per consultants with Cardiology eval pending with considerations for a CT angiogram. In the interim, Lovenox is to continue along with her current medical regimen with replenishment of her potassium and IV antibiotics as per Dr. Juan, Infectious Disease absence management consultant. It should be noted that the patient is presently on ibuprofen which will be discontinued as the patient is severely thrombocytopenic and is on Lovenox with other analgesics should be given for her pain. We will monitor her platelet count with platelets to be given if the platelet count drops below 20,000 or there is active bleeding as per Dr. Lopez's protocol. This is a complex patient with a comprehensive medically necessary and appropriate visit carried out in excess of 35 minutes with the patient's questions answered to her satisfaction. Clint Mcduffie MD
--- NOTE | 2018-08-11 16:28 | NM ---
Date of service: 08/11/2018 COMPARISON: 08/07/2018 TECHNIQUE: 33.5 mCi technetium 99-m DTPA aerosol. 4.2 mCI technetium 99-m MAA administered intravenously. FINDINGS: VENTILATION COMPONENT: Normal. PERFUSION COMPONENT: Normal. IMPRESSION: Lowprobability ventilation perfusion scan for pulmonary embolism.
[2018-08-11] MEDS: Non Formulary Medication (Vitamin B Complex [Super B-50 Complex] 1 CAP) PO SCH (16:44)
[2018-08-11] MEDS: oxyCODONE 5 mg Immediate Release Tab PO PRN (17:18)
--- NOTE | 2018-08-11 18:36 | CARD ---
APPROVED REPORT Date of service: 08/11/2018 EKG Measurement Heart [id number] <Conclusion> Sinus tachycardia Possible Left atrial enlargement Nonspecific ST abnormality Abnormal ECG
--- NOTE | 2018-08-11 20:49 | PN ---
DATE: 08/11/2018 PULMONARY PROGRESS NOTE REFERRING PHYSICIAN: August Lara MD SUBJECTIVE: She is lying in the bed at 45 degrees on nasal cannula, has some left upper chest area some discomfort with a tachypnea and tachycardia. No nausea, no vomiting, no diarrhea. Has a left upper extremity significantly swelling. OBJECTIVE PHYSICAL EXAMINATION GENERAL: Gross no acute distress. VITAL SIGNS: T max is 100.6, heart rate was 120, respiratory rate is 20, blood pressure 125/59, pulse ox 93% on nasal cannula. HEENT: Moist mucous membranes. No ulcer or thrush noted. NECK: Supple. No JVD. CARDIOPULMONARY: Heart S1, S2. LUNGS: Have fair airflow with rhonchi. ABDOMEN: Soft, nontender, no organomegaly. EXTREMITIES: No edema of lower extremity. Left upper extremity is elevated over the pillow and has edema. NEUROLOGIC: Awake and follows simple commands. MEDICATIONS: She is on Benadryl p.r.n. basis, Brovana inhaled twice a day, Claritin 10 mg daily, Cozaar 50 mg daily, vitamin D 50,000 units weekly, albuterol/Atrovent nebulizer every 4 hours p.r.n., potassium 20 mEq daily, clonazepam 0.5 mg twice a day, Lovenox 650 mg subcu twice a day being given, magnesium oxide 14 mg twice a day, meropenem 1 g IV every 8 hours, Nicoderm patches daily, Norvasc 10 mg daily, nasal saline q.i.d., oxycodone immediate release 5 mg every 8 hours, Protonix 40 mg daily, Pulmicort inhaled twice a day, Remeron 15 mg p.o. at bedtime, Singulair 10 mg daily, IV fluid normal saline 70 mL/hour, Spiriva inhaled daily, Tenormin 25 mg twice a day, Tylenol p.r.n., Ultram 50 mg every 8 hours p.r.n., Zofran p.r.n. basis, vitamin B complex is being given on a daily basis. LABORATORY DATA: Shows hemoglobin 9.2, hematocrit 26.8, WBC 5.9, platelet is 28. Sodium is 142, potassium 3.2, chloride 112, bicarbonate 22, BUN 19, creatinine 0.8, glucose 71, calcium is 8.2, AST 22, ALT 18, alk phos is 110. Troponin is 0.14. Albumin is 2.6. Microbiology; stool for C. Diff been negative. Urine culture, there is no growth. IMPRESSION AND PLAN: She has a high-grade myelodysplasia, history of lung cancer, history of lobectomy, thrombocytopenia, anemia, also history of sickle cell anemia, chronic lung disease, colitis on CT scan, has a left upper extremity deep venous thrombosis, also a procalcitonin positive, developed tachypnea and tachycardia. VQ scan is ordered. Her Lovenox has been increased. The patient clearly understands risk benefit ratio of thromboembolic disease, pulmonary embolism and also bleeding and she agreed with the treatment. Awaiting for VQ scan. Continue supplemental oxygen, pain management. Cardiology, Infectious Diseases followup. Also being followed by Hematology. Followup labs in the morning. Thank you and we will follow with you. Solange Maurer MD
[2018-08-11] MEDS: Vancomycin 1gm in NS 250ml 1 GM/250 ML BAG IVPB SCH (21:54)
[2018-08-11] MEDS: Cefepime 1gm in NS 100ml 1 GM/100 ML BAG IVPB SCH (21:57)
[2018-08-11] MEDS: Enoxaparin 60 mg Syringe SC SCH (22:26)
--- NOTE | 2018-08-11 22:48 | PN ---
DATE: 08/11/2018 SUBJECTIVE: The patient is in bed, in no acute distress, nontoxic. PHYSICAL EXAMINATION: VITAL SIGNS: Temperature is 98, T-max was 100.6; blood pressure is 120/90, and respiratory rate of 18. HEENT: Unremarkable. NECK: Supple. LUNGS: Decreased breath sounds. HEART: Normal S1 and S2. ABDOMEN: Soft. LABORATORY DATA: Reveals a white count is 5.9 and chemistries reveals a creatinine of 0.8. Troponin is elevated. Urinalysis is noted. Influenza is negative and the patient's microbiology reveals the cultures are negative from the . Review of orders reveals the patient is on off of antibiotics. ASSESSMENT AND PLAN: This is a 53-year-old female who was seen earlier today 363, bed 1 . Overall in poor condition, now has a new fever, tachycardia, had a perfusion scan which was negative. The patient has a history of myelodysplastic syndrome, status post chemotherapy, lung cancer status post lobectomy, mastectomy, chronic obstructive lung disease and now has a new SIRS systemic inflammatory response syndrome with tachycardia and new fever. We will repeat pancultures, blood cultures, urine cultures, sputum cultures and urinalysis, procalcitonin. We will order a portable chest x-ray. We will start the patient on empiric vancomycin and Maxipime. We will make further recommendations. Terrance Juan MD
--- NOTE | 2018-08-11 23:23 | PN ---
DATE: 08/10/2018 SUBJECTIVE: She is comfortable except left arm swelling, still running a fever, now it is better. PHYSICAL EXAMINATION VITAL SIGNS: Temperature 98.5, heart rate 116, blood pressure is 93/57, respirations 20, saturating 94%. HEENT: Head and neck normal. No JVD. CHEST: Clear, but diminished breath sounds bilaterally. CARDIAC: First sound and second sound normal. EXTREMITIES: Left upper arm has edema. NEUROLOGIC: Nonfocal. LABORATORY DATA: White count 4.7, hemoglobin 9.8, hematocrit 29.7, and platelets 362. Chemistry; sodium 140, potassium 4.1, chloride 110, bicarbonate 19, BUN 19, creatinine 1.1. Calcium 8. Total bilirubin 2.5. Liver function test is normal. IMPRESSION AND PLAN: 1. Left upper arm swelling. Venous Doppler was done, it is positive for deep venous thrombosis though currently we will start the patient on Lovenox 40 mg subcutaneous daily. 2. 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 Dr. Maurer, Pulmonary consult. Continue inhaled bronchodilators. 3. Fever. So far cultures are negative. We will continue Merrem 1g IV every 6 hours. 4. Tobacco addiction. Continue Nicorette patch. 5. Chronic anxiety. Continue clonazepam. 6. Patient has acute myeloid leukemia, myelodysplastic syndrome with severe thrombocytopenia with current transfusions with plasmapheresis of . We will continue current therapy. Continue followup with the other consultants. Patient is stable for now. For the blood pressure, we will be putting holding parameters on blood pressure medications with blood pressure is low. Continue current therapy. August Lara MD
--- NOTE | 2018-08-11 23:33 | PN ---
DATE: 08/11/2018 SUBJECTIVE: The patient is seen today, 08/11/2018. The patient is stable. She is tachypneic, mild tachypnea. The patient has some chest discomfort with positive troponin. Cardiology consult was on the case. Right now, the patient is getting a VQ scan. She is feels less distressed. She is able to communicate very well. PHYSICAL EXAMINATION VITAL SIGNS: Temperature 100.6, heart rate 130, blood pressure is 122/59, respiration is 20, saturation 93%. HEAD AND NECK: Normal. No JVD. No thyromegaly. CHEST: Clear. Diminished breath sounds bilaterally. CARDIAC: First sound and second sound normal. ABDOMEN: Soft, nontender. EXTREMITIES: No edema except left upper extremity edema. LABORATORY DATA: Sodium 142, potassium 3.2, chloride 112, BUN 19, creatinine 0.8, the patient had total bilirubin 3.8, AST and ALT and alk phos is normal. The patient also had troponin 0.14. CBC shows white count 5.9, hemoglobin 9.2, hematocrit 26.8, platelets 30,000. IMPRESSION AND PLAN: 1. Dyspnea, chest pain. Cardiology consult, Pulmonary consult. The patient had a VQ scan with a low probability. Continue Lovenox 40 mg. 2. Fever with cultures negative, possibility of pneumonia should still be considered. Continue Merrem and continue inhaled bronchodilator. 3. Chest pain, positive troponin. The patient had an echocardiogram, which shows diminished transactions and mild pulmonary hypertension. Continue current therapy. We will follow up with the Cardiology. 4. Left upper extremity deep vein thrombosis. Continue Lovenox. 5. Hypertension stable. We have holding parameters. We will decrease the Norvasc to 5 mg if the patient is running low blood pressures. 6. Chronic obstructive pulmonary disease, severe with bullae in the CT scan, possible pneumonia. Continue inhaled bronchodilator. Continue IV antibiotic Merrem 1 g every 8 hours. Continue Singulair and Claritin. 7. Chronic back pain. Continue tramadol. 8. Tobacco addiction, continue Nicorette. 9. Continue current therapy. Followup clinically. The patient seems stable with Klonopin 0.5 mg b.i.d., we will continue that. August Lara MD [facility] # [id number]
--- NOTE | 2018-08-12 00:35 | PN ---
DATE: 08/11/2018 SUBJECTIVE: This patient was seen and evaluated earlier today. Patient has been on a liquid diet. Says an abdominal pain is slightly better. PHYSICAL EXAMINATION: VITAL SIGNS: T-max 100.6, blood pressure is 125/59, respiration is 20, heart rate 113. HEENT: Atraumatic, anicteric. NECK: Supple. HEART: S1, S2 heard. LUNGS: Bilateral air entry present. ABDOMEN: Soft. There is tenderness present in the right side of the abdomen. There is mild diffuse tenderness present maximum in the right of the abdomen. EXTREMITIES: Mild edema present. LABORATORY DATA: Hemoglobin 9.2, hematocrit 26.8, WBC 5.9, platelets 28. Chemistry shows potassium 3.2, troponin mildly elevated 1.14. IMPRESSION: This is a 53-year-old patient with accelerated myelodysplastic syndrome with a history of lung cancer and breast cancer in the past with thrombocytopenia status post blood transfusions. Patient did have a history of fever and also diffuse abdominal pain. The CT showed diffuse thickening of the colon suggestive of thompson colitis. A stool for Clostridium difficile has been negative. Patient was on p.o. vancomycin, which has been discontinued. Patient is on IV vancomycin and meropenem because of this fever, immunocompromised status. Patient is also now found to have a left upper extremity deep vein thrombosis. Continue the antibiotics as per Infectious Diseases. We will discuss with Infectious Diseases regarding antibiotic coverage and empiric therapy for Clostridium difficile even though stool for Clostridium difficile has been negative, in view of the history of Clostridium difficile colitis in the past and with the pancolitis in the CAT scan with the significant right-sided mucosal thickening. Thank you very much for allowing us to participate in the care of the patient. Efrem Dela Cruz MD JONAH
[2018-08-12] MEDS: Meropenem IV 1 gm in NS 1 GM/50 ML BAG IVPB SCH (05:35)
[2018-08-12] MEDS: Cefepime 1gm in NS 100ml 1 GM/100 ML BAG IVPB SCH ×2 (05:38→13:53)
[2018-08-12] MEDS: Budesonide 0.5 mg/2 ml Inhal Susp UD IH SCH ×2 (07:07→19:41)
[2018-08-12] MEDS: Arformoterol 15 mcg/2 ml Inh Sol IH SCH ×2 (07:07→19:41)
[2018-08-12] MEDS: Vancomycin 1gm in NS 250ml 1 GM/250 ML BAG IVPB SCH ×2 (09:04→22:32)
[2018-08-12] MEDS: Tiotropium 18 mcg Cap For Inhalation INH SCH (09:23)
[2018-08-12] MEDS: Enoxaparin 60 mg Syringe SC SCH ×2 (09:23→22:33)
[2018-08-12] MEDS: Ergocalciferol 50,000 Intl Units Cap PO SCH (09:24)
[2018-08-12] MEDS: Pantoprazole 40 mg EC Tab PO SCH (09:24)
[2018-08-12] MEDS: Potassium Chloride 20 mEq ER Tab PO SCH (09:24)
[2018-08-12] MEDS: Magnesium Oxide 400 mg Tab UD PO SCH ×2 (09:25→17:40)
[2018-08-12] MEDS: Non Formulary Medication (Vitamin B Complex [Super B-50 Complex] 1 CAP) PO SCH (09:26)
[2018-08-12 09:41] LABS: HEMOGLOBIN 8.7 g/dL (12.0-16.0); MEAN CORPUSCULAR HEMOGLOBIN 29.8 pg (25.0-35.0); MEAN CORPUSCULAR HGB CONC 34.3 g/dl (31.0-37.0); RBC 2.92 10^6/uL (3.5-6.1); RED CELL DISTRIBUTION WIDTH 15.7 % (11.5-14.5); WHITE BLOOD COUNT 6.9 10^3/uL (4.5-11.0)
[2018-08-12 09:49] LABS: PLATELET COUNT 10 10^3/uL (120.0-450.0)
[2018-08-12 09:56] LABS: ALB/GLOB RATIO 0.8 (1.1-1.8); ALBUMIN 2.6 g/dL (3.0-4.8); ALT/SGPT 17 U/L (7-56); AST/SGOT 26 U/L (14-36); BLOOD UREA NITROGEN 18 mg/dL (7-21); CALCIUM 8.2 mg/dL (8.4-10.5); GFR NON-AFRICAN AMERICAN > 60
[2018-08-12 10:00] LABS: URINE BILIRUBIN MODERATE (NEGATIVE); URINE BLOOD LARGE (NEGATIVE); URINE GLUCOSE (UA) NEGATIVE (NEGATIVE); URINE LEUKOCYTE ESTERASE NEGATIVE Leu/uL (NEGATIVE); URINE PROTEIN 100 mg/dL (<30 mg/dL); URINE UROBILINOGEN 0.2 E.U./dL (<1 E.U./dL)
[2018-08-12 10:02] LABS: URINE APPEARANCE CLEAR (CLEAR); URINE COLOR YELLOW (YELLOW)
[2018-08-12 10:22] LABS: EOSINOPHIL 20 % (0.0-3.0); LYMPHOCYTE 23 % (22.0-35.0); MONOCYTE 9 % (1.0-6.0); NEUTROPHIL 48 % (50.0-70.0); PLATELET ESTIMATE LOW (NORMAL)
[2018-08-12 10:24] LABS: PLATELET COUNT MANUAL 11 K/mm3 (120-450)
[2018-08-12 10:29] LABS: URINE BACTERIA LARGE /hpf; URINE COARSE GRANULAR CAST TRACE /hpf; URINE EPITHELIAL CELLS 0 - 2 /hpf (0-5); URINE RBC 0 - 2 /hpf (0-2); URINE WBC 0 - 2 /hpf (0-6)
--- NOTE | 2018-08-12 11:02 | RAD ---
Date of service: 08/11/2018 HISTORY: fever COMPARISON: 08/07/2018 TECHNIQUE: 1 view obtained. FINDINGS: LUNGS: New bilateral infiltrates are seen especially in the lower lobes consistent with pneumonia. PLEURA: No significant pleural effusion identified, no pneumothorax apparent. CARDIOVASCULAR: Aortic calcification Normal cardiac size. No pulmonary vascular congestion. OSSEOUS STRUCTURES: No significant abnormalities. VISUALIZED UPPER ABDOMEN: Normal. OTHER FINDINGS: None. IMPRESSION: New bilateral infiltrates are seen especially in the lower lobes consistent with pneumonia.
[2018-08-12] MEDS: oxyCODONE 5 mg Immediate Release Tab PO PRN (12:10)
[2018-08-12] MEDS ORDERED: DiphenhydrAMINE 50 mg/ml Inj IVP PRN (13:50)
--- NOTE | 2018-08-12 15:15 | PN ---
DATE: 08/12/2018 SUBJECTIVE: The patient is in bed, in no acute distress. However, chronically ill and debilitated. She did have fevers earlier. PHYSICAL EXAMINATION GENERAL: Text. VITAL SIGNS: Temperature is 99.6, T max is 102.2, blood pressure is 120/50, respiratory rate is 24, heart rate of 114. HEENT: Unremarkable. NECK: Supple. LUNGS: Have decreased breath sounds. HEART: Normal S1,and S2. EXTREMITIES: The patient's left arm has edema. LABORATORY DATA: White count of 6.9. Chemistries are noted. Troponins are elevated. Urinalysis is noted. Serology is reviewed. Influenza is negative. Microbiology is noted. Blood cultures are negative. Urine cultures are negative. Stool for no salmonella, no shigella, no Campylobacter. Stool for C. diff is negative. Urine cultures also negative. Review of orders reveal that the patient to be on cefepime. Chest x-ray is pending. Upper extremity CT is noted. An ultrasound read by Dr. Killian Zhou of the upper extremity, extensive catheters associated thrombus noted in left subclavian. The left subclavian is noted. ASSESSMENT AND PLAN: This is a 53-year-old female who was seen earlier with systemic inflammatory response syndrome and fever, tachycardia, who had negative cultures, negative blood, negative urine with vancomycin and Maxipime. Repeat chest-ray is pending. Repeat thompson cultures are pending. A thrombus in the left arm could cause fevers. Procalcitonin is also pending. We will treat with vanco, Maxipime that are pending. Repeat thompson cultures, chest x-ray, procalcitonin. We will make further recommendations. Overall prognosis is quite poor. Terrance Juan MD
--- NOTE | 2018-08-12 16:33 | PN ---
DATE: 08/12/2018 PULMONARY PROGRESS NOTE REFERRING PHYSICIAN: August Lara MD SUBJECTIVE: She is lying in the bed, sleepy, arousable. Tachypneic and tachycardic. VQ scan was done which showed low probability of PE. Left upper extremity still swollen and tender. No nausea, vomiting, diarrhea, leg pain or leg swelling. PHYSICAL EXAMINATION: GENERAL: No acute distress. VITAL SIGNS: Temperature 99, heart rate is 114, respiratory rate is 24, blood pressure 120/58, pulse oximetry 93% on 3 L nasal cannula. HEENT: Small oral cavity, crowded airway. NECK: Supple. No JVD. LUNGS: Have a fair airflow. HEART: S1 and S2. ABDOMEN: Soft, nontender. No organomegaly. EXTREMITIES: No edema of lower extremity. Left upper extremity has swelling and tenderness. NEUROLOGIC: Asleep, arousable, follows simple commands. MEDICATIONS: She is on Benadryl 25 mg every 8 hours p.r.n., Brovana inhaled twice a day, Claritin 10 mg daily, Cozaar 50 mg daily, vitamin D 50,000 units weekly, DuoNeb every 4 hours p.r.n., potassium 20 mEq daily, clonazepam 0.5 mg p.o. twice a day, Lovenox 50 mg subcu every 12 hours, magnesium oxide 400 mg twice a day, Cefepime 1 g IV every 8 hours, Nicoderm patch daily, Norvasc 10 mg daily, nasal saline four times a day, oxycodone immediate release 5 mg every 8 hours, Protonix 40 mg daily, Pulmicort inhaled twice a day, Remeron 15 mg h.s., Singulair 10 mg daily, IV fluid normal saline 70 mL/hour, Spiriva inhaled daily, Tenormin 25 mg twice a day, Tylenol p.r.n., Ultram every 8 hours p.r.n., vancomycin 1 g IV every 12 hours, vitamin B complex 1 tablet daily, Zofran p.r.n. basis. LABORATORY DATA: Shows sodium is 144, potassium 3.2, chloride 113, bicarbonate 20, BUN 18, creatinine 0.7, calcium is 8.2, Total bilirubin 5.9. AST 26, ALT 103, albumin is 2.6. Procalcitonin is 55. Microbiology: Blood culture and urine culture; there is no growth. V/Q scan done yesterday showed low probability of pulmonary embolism. Chest x-ray was done yesterday which shows new bilateral infiltrates seen especially in the lower lobe consistent with pneumonia. Also procalcitonin is positive. IMPRESSION AND PLAN: Myelodysplasia. History of lung cancer, required a lobectomy in the past, thrombocytopenia, anemia, sickle cell disease, chronic lung disease, left upper extremity deep vein thrombosis. V/Q scan negative for pulmonary embolism. Pulmonary point of view, high risk for bleed secondary to severe thrombocytopenia. Spoke to nursing staff. May benefit from intravenous heparin instead of Lovenox in case of any bleed. Continue to follow hemoglobin and hematocrit closely. Pulmonary point of view; continue bronchodilator. Continue antibiotics. Gastric prophylaxis, May need to get vascular input for left upper extremity swelling, secondary to deep vein thrombosis. Follow up labs in the morning. Thank you and we will follow with you. Solange Maurer MD
--- NOTE | 2018-08-12 17:40 | CARD ---
APPROVED REPORT Date of service: 08/11/2018 EKG Measurement Heart [id number] MD [id number] <Conclusion> Sinus tachycardia Otherwise normal ECG
--- NOTE | 2018-08-12 18:17 | PN ---
DATE: 08/12/2018 This is [facility]'s [facility] visit on the medical floor. For Dr. Lopez. 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 At present, the patient also has elevated troponin for which she is being evaluated by Cardiology. No further chest pain on this visit. The patient had her labs done this morning with labs unable to be drawn on her left side due to her edema with permission given one time only to draw labs for her right hand which was done as the patient's troponin needed to be checked along with her platelets and manual platelet count. PHYSICAL EXAMINATION: VITAL SIGNS: Temperature 99.6, pulse 114, respirations 24, blood pressure 120/58, pulse ox of 93%. GENERAL: She appears cachectic, somnolent, but arousable at this visit. HEENT: Unremarkable. NECK: Supple. HEART: Tachy rate, regular rhythm. LUNGS: Scattered rhonchi. ABDOMEN: Soft and nontender. EXTREMITIES: +1 edema, left upper extremity. SKIN: Otherwise warm and dry. NEUROLOGIC: Again somnolent, but arousable. LABORATORY DATA: The patient's labs were drawn. White blood cell count of 6.9, hemoglobin 8.7, hematocrit 25.4, platelet count of 10,000 with a manual count of 11,000. Her metabolic panel showed a potassium of 3.2 which will be corrected as per her attending physician. Her total bilirubin is 5.9 today with normal LFTs. Troponin is pending. The patient's urinalysis showed large amount of blood and moderate amount of bilirubin with a urine culture to be sent. Her stool culture showed no salmonella shigella or Campylobacter reported today. C. difficile testing was also done which was negative two days prior. 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 PLAN: For this patient after conversation with Dr. Lopez is to continue her present medical regimen with transfusion of one unit of single donor apheresis platelets after premedication with Tylenol and Benadryl. We will also continue present medical regimen with replenishment of her electrolytes as per her primary doctor. We will watch anemic indices with consideration of transfusion of blood as indicated. This is a complex patient with a comprehensive medically necessary and appropriate visit carried out in excess of 20 minutes with the nurses' questions answered after phone call conversations earlier this morning regarding taking out blood from the right hand with recommendations for Dr. Killian Zhou to attempt to obtain parenteral access tomorrow at a different site. She continues on Lovenox as per Dr. Shaw with the single donor apheresis platelets also being given for her low platelet count. This is a complex patient with a comprehensive medically necessary and appropriate visit carried out in excess of 20 minutes with the nurses' questions answered to their satisfaction. Clint Mcduffie MD
[2018-08-12] MEDS ORDERED: Metoprolol 1 mg/ml Inj IVP STA (23:11)
[2018-08-13] MEDS: Cefepime 1gm in NS 100ml 1 GM/100 ML BAG IVPB SCH ×2 (00:28→05:30)
[2018-08-13] MEDS ORDERED: Metoprolol 1 mg/ml Inj IVP ONE ×2 (03:48→04:34)
--- NOTE | 2018-08-13 04:40 | CP.PCM.PCO ---
Addendum Addendum: 08/13/18 04:37 Metoprolol 5mg IV given x3 overnight for tachycardia. Suspect may be due to DVT and/or pain, though patient currently not c/o pain with Tramadol on prn. NC requiring increase to 4L overnight with patient at times requiring O2 via NRB to maintain adequate saturation. Fluids held around 04:30 for increased arm swelling, which could be from DVT but IV line could also be infiltrated.
[2018-08-13] MEDS: oxyCODONE 5 mg Immediate Release Tab PO PRN (04:51)
--- NOTE | 2018-08-13 04:59 | CP.PCM.PN ---
Subjective - Date & Time of Evaluation Date of Evaluation: 08/13/18 Time of Evaluation: 04:57 - Subjective Subjective: To be dictated. See physician communication note I co-sign(will--ed) Objective - Vital Signs/Intake and Output Vital Signs (last 24 hours): Temp Pulse Resp BP Pulse Ox 100.9 F H 124 H 24 120/66 93 L 08/13/18 02:53 08/13/18 04:55 08/12/18 06:00 08/13/18 04:55 08/12/18 06:00 - Medications Medications: Current Medications Acetaminophen (Tylenol 325mg Tab) 650 mg PO Q4H PRN PRN Reason: Fever >100.4 F Last Admin: 08/13/18 02:54 Dose: 650 mg Albuterol/Ipratropium (Duoneb 3 Mg/0.5 Mg (3 Ml) Ud) 3 ml IH [id number] PRN PRN Reason: Shortness of Breath Last Admin: 08/12/18 03:00 Dose: 3 ml Amlodipine Besylate (Norvasc) 10 mg PO DAILY [facility] Last Admin: 08/12/18 09:24 Dose: 10 mg Arformoterol Tartrate (Brovana) 15 mcg IH [id number] [facility] Last Admin: 08/12/18 19:41 Dose: 15 mcg Atenolol (Tenormin) 25 mg PO BID [facility] Last Admin: 08/12/18 17:40 Dose: 25 mg Budesonide (Pulmicort Respules) 0.5 mg IH BIDRESP [facility] Last Admin: 08/12/18 19:41 Dose: 0.5 mg Clonazepam (Klonopin) 0.5 mg PO BID [facility]; Protocol Last Admin: 08/12/18 17:40 Dose: 0.5 mg Diphenhydramine HCl (Benadryl) 25 mg IVP Q8H PRN PRN Reason: Allergy symptoms Enoxaparin Sodium (Lovenox) 50 mg SC Q12H [facility]; Protocol Last Admin: 08/12/18 22:33 Dose: 50 mg Ergocalciferol (Drisdol 50,000 Intl Units Cap) 1 cap PO SUN [facility] Last Admin: 08/12/18 09:24 Dose: 1 cap Cefepime HCl (Maxipime 1gm) 1 gm in 100 mls @ 100 mls/hr IVPB Q8 [facility]; Protocol Stop: 08/20/18 22:01 Last Admin: 08/13/18 00:28 Dose: 100 mls/hr Vancomycin HCl (Vancomycin 1gm) 1 gm in 250 mls @ 167 mls/hr IVPB Q12H [facility]; Protocol Stop: 08/19/18 20:16 Last Admin: 08/12/18 22:32 Dose: 167 mls/hr Loratadine (Claritin) 10 mg PO DAILY [facility] Last Admin: 08/12/18 09:24 Dose: 10 mg Losartan Potassium (Cozaar) 50 mg PO QPM [facility] Last Admin: 08/12/18 17:39 Dose: 50 mg Magnesium Oxide (Mag-Ox) 400 mg PO BID [facility] Last Admin: 08/12/18 17:40 Dose: 400 mg Mirtazapine (Remeron) 15 mg PO HS [facility] Last Admin: 08/12/18 22:34 Dose: 15 mg Montelukast Sodium (Singulair) 10 mg PO DAILY [facility] Last Admin: 08/12/18 09:25 Dose: 10 mg Nicotine (Nicoderm Cq) 1 patch TD DAILY [facility] Last Admin: 08/12/18 09:26 Dose: Not Given Non-Formulary Medication (Vitamin B Complex [Super B-50 Complex]) 1 cap PO DAILY [facility] Last Admin: 08/12/18 09:26 Dose: Not Given Ondansetron HCl (Zofran Inj) 4 mg IVP Q6H PRN PRN Reason: Nausea/Vomiting Last Admin: 08/10/18 02:02 Dose: 4 mg Oxycodone HCl (Oxycodone Immediate Release Tab) 5 mg PO Q8H PRN PRN Reason: Pain, severe (8-10) Last Admin: 08/13/18 04:51 Dose: 5 mg Pantoprazole Sodium (Protonix Ec Tab) 40 mg PO DAILY [facility] Last Admin: 08/12/18 09:24 Dose: 40 mg Potassium Chloride (K-Dur 20 Meq Er Tab) 20 meq PO DAILY [facility] Last Admin: 08/12/18 09:24 Dose: 20 meq Sodium Chloride ([place] Nasal [place]) 0 ml NS QID [facility] Last Admin: 08/12/18 22:17 Dose: Not Given Tiotropium [place] (Spiriva) 18 mcg INH DAILY [facility] Last Admin: 08/12/18 09:23 Dose: 18 mcg Tramadol HCl (Ultram) 50 mg PO TID PRN PRN Reason: Pain, moderate (4-7) - Labs Labs: 08/12/18 09:10 08/12/18 09:10
--- NOTE | 2018-08-13 05:01 | CP.PCM.PN ---
Subjective - Subjective Subjective: To be dictated. Asx. 90/43 HR 38-39/min. Rx, EKG, trop. Objective - Vital Signs/Intake and Output Vital Signs (last 24 hours): Temp Pulse Resp BP Pulse Ox 100.9 F H 124 H 24 120/66 93 L 08/13/18 02:53 08/13/18 04:55 08/12/18 06:00 08/13/18 04:55 08/12/18 06:00 - Medications Medications: Current Medications Acetaminophen (Tylenol 325mg Tab) 650 mg PO Q4H PRN PRN Reason: Fever >100.4 F Last Admin: 08/13/18 02:54 Dose: 650 mg Albuterol/Ipratropium (Duoneb 3 Mg/0.5 Mg (3 Ml) Ud) 3 ml IH [id number] PRN PRN Reason: Shortness of Breath Last Admin: 08/12/18 03:00 Dose: 3 ml Amlodipine Besylate (Norvasc) 10 mg PO DAILY [facility] Last Admin: 08/12/18 09:24 Dose: 10 mg Arformoterol Tartrate (Brovana) 15 mcg IH [id number] [facility] Last Admin: 08/12/18 19:41 Dose: 15 mcg Atenolol (Tenormin) 25 mg PO BID [facility] Last Admin: 08/12/18 17:40 Dose: 25 mg Budesonide (Pulmicort Respules) 0.5 mg IH BIDRESP [facility] Last Admin: 08/12/18 19:41 Dose: 0.5 mg Clonazepam (Klonopin) 0.5 mg PO BID [facility]; Protocol Last Admin: 08/12/18 17:40 Dose: 0.5 mg Diphenhydramine HCl (Benadryl) 25 mg IVP Q8H PRN PRN Reason: Allergy symptoms Enoxaparin Sodium (Lovenox) 50 mg SC Q12H [facility]; Protocol Last Admin: 08/12/18 22:33 Dose: 50 mg Ergocalciferol (Drisdol 50,000 Intl Units Cap) 1 cap PO SUN [facility] Last Admin: 08/12/18 09:24 Dose: 1 cap Cefepime HCl (Maxipime 1gm) 1 gm in 100 mls @ 100 mls/hr IVPB Q8 [facility]; Protocol Stop: 08/20/18 22:01 Last Admin: 08/13/18 00:28 Dose: 100 mls/hr Vancomycin HCl (Vancomycin 1gm) 1 gm in 250 mls @ 167 mls/hr IVPB Q12H [facility]; [facility] Stop: 08/19/18 20:16 Last Admin: 08/12/18 22:32 Dose: 167 mls/hr Loratadine (Claritin) 10 mg PO DAILY [facility] Last Admin: 08/12/18 09:24 Dose: 10 mg Losartan Potassium (Cozaar) 50 mg PO QPM [facility] Last Admin: 08/12/18 17:39 Dose: 50 mg Magnesium Oxide (Mag-Ox) 400 mg PO BID [facility] Last Admin: 08/12/18 17:40 Dose: 400 mg Mirtazapine (Remeron) 15 mg PO HS [facility] Last Admin: 08/12/18 22:34 Dose: 15 mg Montelukast Sodium (Singulair) 10 mg PO DAILY [facility] Last Admin: 08/12/18 09:25 Dose: 10 mg Nicotine (Nicoderm Cq) 1 patch TD DAILY [facility] Last Admin: 08/12/18 09:26 Dose: Not Given Non-Formulary Medication (Vitamin B Complex [Super B-50 Complex]) 1 cap PO DAILY [facility] Last Admin: 08/12/18 09:26 Dose: Not Given Ondansetron HCl (Zofran Inj) 4 mg IVP Q6H PRN PRN Reason: Nausea/Vomiting Last Admin: 08/10/18 02:02 Dose: 4 mg Oxycodone HCl (Oxycodone Immediate Release Tab) 5 mg PO Q8H PRN PRN Reason: Pain, severe (8-10) Last Admin: 08/13/18 04:51 Dose: 5 mg Pantoprazole Sodium (Protonix Ec Tab) 40 mg PO DAILY [facility] Last Admin: 08/12/18 09:24 Dose: 40 mg Potassium Chloride (K-Dur 20 Meq Er Tab) 20 meq PO DAILY [facility] Last Admin: 08/12/18 09:24 Dose: 20 meq Sodium Chloride ([place] Nasal [place]) 0 ml NS QID [facility] Last Admin: 08/12/18 22:17 Dose: Not Given Tiotropium [place] (Spiriva) 18 mcg INH DAILY [facility] Last Admin: 08/12/18 09:23 Dose: 18 mcg Tramadol HCl (Ultram) 50 mg PO TID PRN PRN Reason: Pain, moderate (4-7) - Labs Labs: 08/12/18 09:10 08/12/18 09:10
--- NOTE | 2018-08-13 07:36 | CP.PCM.PN ---
Subjective - Date & Time of Evaluation Date of Evaluation: 08/13/18 Time of Evaluation: 07:34 - Subjective Subjective: Christopher Roberson DO, PGY-1 Hematology/Oncology Progress Note for Dr. Lopez Patient was seen and examined at bedside this AM. She reports feeling better this AM but continued to be febrile and tachycardic overnight. She reports continued chest pressure which she had throughout the weekend. She appears more tachypneic since earlier this AM with RR of approximately 40-45. She is also increasingly hypoxemic. Tachycardia has persisted despite addition of atenolol per cardio. Because of persistent respiratory issues, ICU team was consulted this AM and patient was subsequently transferred to MICU. Objective - Vital Signs/Intake and Output Vital Signs (last 24 hours): Temp Pulse Resp BP Pulse Ox 100.9 F H 121 H 24 120/66 93 L 08/13/18 02:53 08/13/18 06:00 08/12/18 06:00 08/13/18 04:55 08/12/18 06:00 Intake and Output: 08/13/18 08/13/18 06:59 18:59 Intake Total 120 Balance 120 - Medications Medications: Current Medications Acetaminophen (Tylenol 325mg Tab) 650 mg PO Q4H PRN PRN Reason: Fever >100.4 F Last Admin: 08/13/18 02:54 Dose: 650 mg Albuterol/Ipratropium (Duoneb 3 Mg/0.5 Mg (3 Ml) Ud) 3 ml IH [id number] PRN PRN Reason: Shortness of Breath Last Admin: 08/12/18 03:00 Dose: 3 ml Amlodipine Besylate (Norvasc) 10 mg PO DAILY [facility] Last Admin: 08/12/18 09:24 Dose: 10 mg Arformoterol Tartrate (Brovana) 15 mcg IH [id number] [facility] Last Admin: 08/12/18 19:41 Dose: 15 mcg Atenolol (Tenormin) 25 mg PO BID [facility] Last Admin: 08/12/18 17:40 Dose: 25 mg Budesonide (Pulmicort Respules) 0.5 mg IH BIDRESP [facility] Last Admin: 08/12/18 19:41 Dose: 0.5 mg Clonazepam (Klonopin) 0.5 mg PO BID [facility]; Protocol Last Admin: 08/12/18 17:40 Dose: 0.5 mg Diphenhydramine HCl (Benadryl) 25 mg IVP Q8H PRN PRN Reason: Allergy symptoms Enoxaparin Sodium (Lovenox) 50 mg SC Q12H [facility]; Protocol Last Admin: 08/12/18 22:33 Dose: 50 mg Ergocalciferol (Drisdol 50,000 Intl Units Cap) 1 cap PO SUN [facility] Last Admin: 08/12/18 09:24 Dose: 1 cap Cefepime HCl (Maxipime 1gm) 1 gm in 100 mls @ 100 mls/hr IVPB Q8 [facility]; Protocol Stop: 08/20/18 22:01 Last Admin: 08/13/18 05:30 Dose: 100 mls/hr Vancomycin HCl (Vancomycin 1gm) 1 gm in 250 mls @ 167 mls/hr IVPB Q12H [facility]; Protocol Stop: 08/19/18 20:16 Last Admin: 08/12/18 22:32 Dose: 167 mls/hr Loratadine (Claritin) 10 mg PO DAILY [facility] Last Admin: 08/12/18 09:24 Dose: 10 mg Losartan Potassium (Cozaar) 50 mg PO QPM [facility] Last Admin: 08/12/18 17:39 Dose: 50 mg Magnesium Oxide (Mag-Ox) 400 mg PO BID [facility] Last Admin: 08/12/18 17:40 Dose: 400 mg Mirtazapine (Remeron) 15 mg PO HS [facility] Last Admin: 08/12/18 22:34 Dose: 15 mg Montelukast Sodium (Singulair) 10 mg PO DAILY [facility] Last Admin: 08/12/18 09:25 Dose: 10 mg Nicotine (Nicoderm Cq) 1 patch TD DAILY [facility] Last Admin: 08/12/18 09:26 Dose: Not Given Non-Formulary Medication (Vitamin B Complex [Super B-50 Complex]) 1 cap PO DAILY [facility] Last Admin: 08/12/18 09:26 Dose: Not Given Ondansetron HCl (Zofran Inj) 4 mg IVP Q6H PRN PRN Reason: Nausea/Vomiting Last Admin: 08/10/18 02:02 Dose: 4 mg Oxycodone HCl (Oxycodone Immediate Release Tab) 5 mg PO Q8H PRN PRN Reason: Pain, severe (8-10) Last Admin: 08/13/18 04:51 Dose: 5 mg Pantoprazole Sodium (Protonix Ec Tab) 40 mg PO DAILY [facility] Last Admin: 08/12/18 09:24 Dose: 40 mg Potassium Chloride (K-Dur 20 Meq Er Tab) 20 meq PO DAILY [facility] Last Admin: 08/12/18 09:24 Dose: 20 meq Sodium Chloride ([place] Nasal [place]) 0 ml NS QID [facility] Last Admin: 08/12/18 22:17 Dose: Not Given Tiotropium [place] (Spiriva) 18 mcg INH DAILY [facility] Last Admin: 08/12/18 09:23 Dose: 18 mcg Tramadol HCl (Ultram) 50 mg PO TID PRN PRN Reason: Pain, moderate (4-7) - Labs Labs: 08/12/18 09:10 08/12/18 09:10 - Constitutional Appears: In Acute Distress, Unkempt, Chronically Ill - Head Exam Head Exam: ATRAUMATIC, NORMOCEPHALIC - Eye Exam Eye Exam: EOMI, PERRL - ENT Exam ENT Exam: Mucous Membranes Moist - Neck Exam Neck Exam: Full ROM. absent: Thyromegaly - Respiratory Exam Respiratory Exam: Accessory Muscle Use, Prolonged Expiratory Phase, Rhonchi (co arse breath sounds b/l), Respiratory Distress. absent: Rales, Wheezes - Cardiovascular Exam Cardiovascular Exam: Tachycardia, +S1, +S2. absent: Gallop, Rubs, Murmur - GI/Abdominal Exam GI & Abdominal Exam: Soft. absent: Guarding, Tenderness - Extremities Exam Extremities Exam: Full ROM, Tenderness (greatest LUE). absent: Pedal Edema - Back Exam Back Exam: NORMAL INSPECTION - Neurological Exam Neurological Exam: Oriented x3 Additional comments: appears somnolent, in acute distress, but A/o x 3 - Psychiatric Exam Psychiatric exam: Anxious - Skin Skin Exam: Dry, Intact, Warm Assessment and Plan - Assessment and Plan (Free Text) Assessment: 53 yo F with PMH of accelerated MDS (previously on cyclical therapy with cytaratine currently on hold secondary to previous hospital admission for PNA and acute drops in blood counts), immunosuppression, lung cancer (s/p lobectomy), R breast mastectomy, COPD, and endocarditis presented to infusion clinic prior to admission for repeat platelet transfusion. She appeared acutely ill at that time with Tmax of 101.2 and tachycardic. She was subsequently sent to ED for evaluation, was admitted, and continues to be on broad spectrum abx. This AM, her respiratory status began to worsen, requiring admission to MICU. 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 given flow cytometry results, would need bone marrow bx for complete confirmation Patient's platelet count continued to drop over the weekend Platelet transfusions have been difficult given patient's persistent fevers Continue motrin and tylenol PRN fever Thrombocytopenia has improved s/p transfusion in MICU Continue to monitor CBC q12h for next 48 hrs Has received decitabine therapy in the past, would also consider venetoclax outpatient treatment if stabilized Prognosis is guarded at this time Palliative care following, all recs appreciated LUE DVT Likely 2/2 PICC line on top of hypercoaguable state from hematologic malignancy Required central venous access despite low platelet count Will continue lovenox 40 mg sc daily Normocytic anemia 2/2 MDS which has now progressed to AML H/H stable over the weekend Continue to monitor, transfuse additional units PRN Fever, tachycardia, tachypnea Likely 2/2 extensive colitis Abx coverage changed to vanc/zosyn/doxycycline Continue ventilator management per ICU team ID following, all recs appreciated Thank you for this interesting consult, we will continue to follow. Case and plan reviewed and discussed with my attending Dr. John Roberson DO IM Resident PGY-1
--- NOTE | 2018-08-13 08:20 | CP.PCM.CON ---
History of Present Illness - History of Present Illness History of Present Illness: Lying in bed, lethargic but responsive,mild shortness of breath Reason for consultation: Cardiac evaluation of tachycardia Brief history of present illness: A 53 year old female who was just recently [place] [facility] came to ER due to fever. History of right breast cancer, status post right lumpectomy in 2003, post lung cancer, post chemotherapy, recently diagnosed with leukemia. LVEF 45-50%, Being followed up by rene tology/oncology. Consult was called due to tachycardia and elevated troponin. Seen and examined by me and Dr. Escobar Review of Systems - Review of Systems All systems: reviewed and no additional remarkable complaints except Review of Systems: as per HPI Past Patient History - Infectious Disease Hx of Infectious Diseases: None - Tetanus Immunizations Tetanus Immunization: Unknown - Past Social History Smoking Status: Former Smoker - CARDIAC Hx Cardiac Disorders: Yes Hx Hypertension: Yes Hx Pacemaker: No - PULMONARY Hx Respiratory Disorders: Yes Hx Bronchitis: Yes Hx Emphysema: Yes Hx Pneumonia: Yes Hx Sleep Apnea: Yes - NEUROLOGICAL Hx Neurological Disorder: Yes Hx Dizziness: Yes Hx Transient Ischemic Attacks (TIA): Yes - HEENT Hx HEENT Problems: Yes Hx Epistaxis: Yes - RENAL Hx Chronic Kidney Disease: Yes Hx Kidney Stones: Yes Other/Comment: "englarged kidney" - ENDOCRINE/METABOLIC Hx Endocrine Disorders: Yes Hx Systemic Lupus Erythematosus: Yes - HEMATOLOGICAL/ONCOLOGICAL Hx Blood Disorders: Yes Hx Anemia: Yes Hx Cancer: Yes (breast, lung, MDS) Hx Sickle Cell Disease: Yes Hx Unexplained Bleeding: Yes (Epitaxis) Other/Comment: SLE - INTEGUMENTARY Hx Dermatological Problems: No - MUSCULOSKELETAL/RHEUMATOLOGICAL Hx Musculoskeletal Disorders: Yes Hx Back Pain: Yes Hx Falls: Yes Hx Unsteady Gait: Yes - GASTROINTESTINAL Hx Gastrointestinal Disorders: Yes (CONSTIPATION,WEIGHT LOSS 14 LBS .) Other/Comment: gall stones - GENITOURINARY/GYNECOLOGICAL Hx Genitourinary Disorders: No - PSYCHIATRIC Hx Psychophysiologic Disorder: Yes Hx Anxiety: Yes - SURGICAL HISTORY Hx Surgeries: Yes Hx Mastectomy: No (R lumpectomy) Other/Comment: L foot sx, tonsilectomy - ANESTHESIA Hx Anesthesia: Yes Hx Anesthesia Reactions: No Hx Malignant Hyperthermia: No Meds Allergies/Adverse Reactions: Allergies Allergy/AdvReac Type Severity Reaction Status Date / Time No Known Allergies Allergy Verified 08/07/18 19:04 - Medications Medications: Current Medications Acetaminophen (Tylenol 325mg Tab) 650 mg PO Q4H PRN PRN Reason: Fever >100.4 F Last Admin: 08/13/18 02:54 Dose: 650 mg Albuterol/Ipratropium (Duoneb 3 Mg/0.5 Mg (3 Ml) Ud) 3 ml IH [id number] PRN PRN Reason: Shortness of Breath Last Admin: 08/12/18 03:00 Dose: 3 ml Amlodipine Besylate (Norvasc) 10 mg PO DAILY [facility] Last Admin: 08/12/18 09:24 Dose: 10 mg Arformoterol Tartrate (Brovana) 15 mcg IH [id number] [facility] Last Admin: 08/12/18 19:41 Dose: 15 mcg Atenolol (Tenormin) 25 mg PO BID [facility] Last Admin: 08/12/18 17:40 Dose: 25 mg Budesonide (Pulmicort Respules) 0.5 mg IH BIDRESP [facility] Last Admin: 08/12/18 19:41 Dose: 0.5 mg Clonazepam (Klonopin) 0.5 mg PO BID [facility]; Protocol Last Admin: 08/12/18 17:40 Dose: 0.5 mg Diphenhydramine HCl (Benadryl) 25 mg IVP Q8H PRN PRN Reason: Allergy symptoms Enoxaparin Sodium (Lovenox) 50 mg SC Q12H [facility]; Protocol Last Admin: 08/12/18 22:33 Dose: 50 mg Ergocalciferol (Drisdol 50,000 Intl Units Cap) 1 cap PO SUN [facility] Last Admin: 08/12/18 09:24 Dose: 1 cap Cefepime HCl (Maxipime 1gm) 1 gm in 100 mls @ 100 mls/hr IVPB Q8 [facility]; Protocol Stop: 08/20/18 22:01 Last Admin: 08/13/18 05:30 Dose: 100 mls/hr Vancomycin HCl (Vancomycin 1gm) 1 gm in 250 mls @ 167 mls/hr IVPB Q12H [facility]; Protocol Stop: 08/19/18 20:16 Last Admin: 08/12/18 22:32 Dose: 167 mls/hr Ibuprofen (Motrin Tab) 400 mg PO Q6H PRN PRN Reason: Fever >100.4 F Loratadine (Claritin) 10 mg PO DAILY [facility] Last Admin: 08/12/18 09:24 Dose: 10 mg Losartan Potassium (Cozaar) 50 mg PO QPM [facility] Last Admin: 08/12/18 17:39 Dose: 50 mg Magnesium Oxide (Mag-Ox) 400 mg PO BID [facility] Last Admin: 08/12/18 17:40 Dose: 400 mg Mirtazapine (Remeron) 15 mg PO HS [facility] Last Admin: 08/12/18 22:34 Dose: 15 mg Montelukast Sodium (Singulair) 10 mg PO DAILY [facility] Last Admin: 08/12/18 09:25 Dose: 10 mg Nicotine (Nicoderm Cq) 1 patch TD DAILY [facility] Last Admin: 08/12/18 09:26 Dose: Not Given Non-Formulary Medication (Vitamin B Complex [Super B-50 Complex]) 1 cap PO DAILY [facility] Last Admin: 08/12/18 09:26 Dose: Not Given Ondansetron HCl (Zofran Inj) 4 mg IVP Q6H PRN PRN Reason: Nausea/Vomiting Last Admin: 08/10/18 02:02 Dose: 4 mg Oxycodone HCl (Oxycodone Immediate Release Tab) 5 mg PO Q8H PRN PRN Reason: Pain, severe (8-10) Last Admin: 08/13/18 04:51 Dose: 5 mg Pantoprazole Sodium (Protonix Ec Tab) 40 mg PO DAILY [facility] Last Admin: 08/12/18 09:24 Dose: 40 mg Potassium Chloride (K-Dur 20 Meq Er Tab) 20 meq PO DAILY [facility] Last Admin: 08/12/18 09:24 Dose: 20 meq Sodium Chloride ([place] Nasal [place]) 0 ml NS QID [facility] Last Admin: 08/12/18 22:17 Dose: Not Given Tiotropium [place] (Spiriva) 18 mcg INH DAILY [facility] Last Admin: 08/12/18 09:23 Dose: 18 mcg Tramadol HCl (Ultram) 50 mg PO TID PRN PRN Reason: Pain, moderate (4-7) Physical Exam - Constitutional Additional comments: mild distress - Eye Exam Pupil Exam: NORMAL ACCOMODATION - ENT Exam ENT Exam: Mucous Membranes Dry - Neck Exam Neck exam: Positive for: Full Rom, Normal Inspection - Respiratory Exam Respiratory Exam: Decreased Breath Sounds, Clear to Auscultation Bilateral Additional comments: mild shortness of breath - Cardiovascular Exam Cardiovascular Exam: Tachycardia, +S1, +S2 - GI/Abdominal Exam GI & Abdominal Exam: Normal Bowel Sounds, Soft - Extremities Exam Additional comments: left arm swelling - Neurological Exam Additional comments: lethargic - Skin Skin Exam: Dry, Normal Color, Warm Results - Vital Signs Recent Vital Signs: Last Vital Signs Temp 98 F 08/13/18 08:12 Pulse 54 L 08/13/18 08:12 Resp 24 08/13/18 08:12 BP 120/66 08/13/18 08:12 Pulse Ox 98 08/13/18 08:12 - Labs Result Diagrams: 08/12/18 09:10 08/12/18 09:10 Labs: Laboratory Results - last 24 hr 08/11/18 08/12/18 08/12/18 20:25 09:10 09:10 WBC 6.9 RBC 2.92 L Hgb 8.7 L Hct 25.4 L MCV 87.0 MCH 29.8 MCHC 34.3 RDW 15.7 H Plt Count 10 L* Manual Plt Count 11 L* Neut % (Auto) TEST NOT PERFORMED Lymph % (Auto) TEST NOT PERFORMED [place] % (Auto) TEST NOT PERFORMED Eos % (Auto) TEST NOT PERFORMED Baso % (Auto) TEST NOT PERFORMED Lymph # (Auto) TEST NOT PERFORMED [place] # (Auto) TEST NOT PERFORMED Eos # (Auto) TEST NOT PERFORMED Baso # (Auto) TEST NOT PERFORMED Absolute Neuts (auto) TEST NOT PERFORMED Neutrophils % (Manual) 48 L Lymphocytes % (Manual) 23 Monocytes % (Manual) 9 H Eosinophils % (Manual) 20 H Platelet Evaluation Low Sodium 144 Potassium 3.2 L Chloride 113 H Carbon Dioxide 20 L Anion Gap 14 BUN 18 Creatinine 0.7 Est GFR ( Amer) > 60 Est GFR (Non-Af Amer) > 60 POC Glucose (mg/dL) Random Glucose 77 Calcium 8.2 L Total Bilirubin 5.9 H AST 26 ALT 17 Alkaline Phosphatase 103 Total Protein 5.6 L Albumin 2.6 L Globulin 3.0 Albumin/Globulin Ratio 0.8 L Procalcitonin 55.47 H Urine Color Urine Appearance Urine pH Ur Specific [place] Urine Protein Urine Glucose (UA) Urine Ketones Urine Blood Urine Nitrate Urine Bilirubin Urine Urobilinogen Ur Leukocyte Esterase Urine RBC Urine WBC Ur Epithelial Cells Urine Bacteria Coarse Granular Casts Blood Type Antibody Screen BBK History Checked 08/12/18 08/12/18 08/12/18 09:39 11:30 22:54 WBC RBC Hgb Hct MCV MCH MCHC RDW Plt Count Manual Plt Count Neut % (Auto) Lymph % (Auto) [place] % (Auto) Eos % (Auto) Baso % (Auto) Lymph # (Auto) [place] # (Auto) Eos # (Auto) Baso # (Auto) Absolute Neuts (auto) Neutrophils % (Manual) Lymphocytes % (Manual) Monocytes % (Manual) Eosinophils % (Manual) Platelet Evaluation Sodium Potassium Chloride Carbon Dioxide Anion Gap BUN Creatinine Est GFR ( Amer) Est GFR (Non-Af Amer) POC Glucose (mg/dL) 98 Random Glucose Calcium Total Bilirubin AST ALT Alkaline Phosphatase Total Protein Albumin Globulin Albumin/Globulin Ratio Procalcitonin Urine Color Yellow Urine Appearance Clear Urine pH 6.0 Ur Specific [place] 1.020 Urine Protein 100 H Urine Glucose (UA) Negative Urine Ketones 15 H Urine Blood Large H Urine Nitrate Negative Urine Bilirubin Moderate H Urine Urobilinogen 0.2 Ur Leukocyte Esterase Negative Urine RBC 0 - 2 Urine WBC 0 - 2 Ur Epithelial Cells 0 - 2 Urine Bacteria Large Coarse Granular Casts Trace Blood Type B POSITIVE Antibody Screen Negative BBK History Checked Patient has bt Assessment & Plan - Assessment and Plan (Free Text) Assessment: A 53 year old female who was just recently discharged [place] [facility] [place] and came to ER due to fever. History of right breast cancer, status post right lumpectomy in 2003, post lung cancer, post chemotherapy, recently diagnosed with leukemia. Echo done on 08/10/18 showed LVEF 45-50%,mitral prolapse, moderate MR, moderate to severe TR, RVSP 31mmHg.No evidence of thrombus. Being followed up by hematology/oncology.Consult was called due to elevated troponin and tachycardia. Patient has low grade fever. positive thrombus on the left arm. left arm swollen. Denies chest pain. Elevated troponin maybe from sepsis. Will treat medically. Not a candidate for cardiac cath due to low platelet. No Aspirin due to low platelet. Stress test when clinically stable. Tachycardia will start Atenolol. Will follow up. Plan: Mild shortness of breath Tachycardia, will increase Atenolol Blood pressure controlled Low grade fever, Tylenol PRN On Norvasc 10 mg daily, Tenormin 25 mg BID,Cozaar 50 mg daily, Continue current management Continue IV antibiotics as ordered Followed up by oncology/hematology Will follow up Plan and treatment discussed with Dr. Escobar Thank you Dr. Lara for the opportunity of taking care of Codi Pope - Date & Time Date: 08/13/18 Time: 06:35
[2018-08-13 08:32] LABS: ARTERIAL BLOOD GAS HCO3 21.6 mmol/L (21-28); ARTERIAL BLOOD GAS HEMOGLOBIN 8.5 g/dL (11.7-17.4); ARTERIAL BLOOD GAS O2 CAPACITY 11.4 mL/dl (16-24); ARTERIAL BLOOD GAS O2 CONTENT 10.1 ML/dl (15-23); ARTERIAL BLOOD GAS O2 SAT 88.7 % (95-98); ARTERIAL BLOOD GAS PCO2 42 mm/Hg (35-45); ARTERIAL BLOOD GAS PH 7.32 (7.35-7.45); ARTERIAL BLOOD GAS TCO2 22.9 mmol.L (22-28)
[2018-08-13] MEDS: Arformoterol 15 mcg/2 ml Inh Sol IH SCH ×2 (08:37→21:00)
[2018-08-13] MEDS: Budesonide 0.5 mg/2 ml Inhal Susp UD IH SCH ×2 (08:38→21:00)
--- NOTE | 2018-08-13 09:11 | PN ---
DATE: 08/12/2018 SUBJECTIVE: This patient was seen and evaluated earlier. The patient feels weak. Still complaining of some abdominal discomfort. PHYSICAL EXAMINATION: VITAL SIGNS: Temperature 100.9, pulse 114, and blood pressure is 120/58. HEENT: Atraumatic, jaundiced. NECK: Supple. HEART: S1 and S2 heard. LUNGS: Bilateral air entry present, reduced at the base. ABDOMEN: Soft. Tenderness present diffusely mainly in the right side of the abdomen. NEUROLOGIC Alert and oriented. LABORATORY DATA: Hemoglobin 8.7, hematocrit 25.4, WBC 6.9, and platelets 10. Chemistry showed elevated total bilirubin now 5.9, AST of 26, ALT of 17, and alkaline phosphatase 103. IMPRESSION AND PLAN: This 53-year-old patient with advanced myelodysplastic syndrome, admitted with fever, and abdominal pain. The patient has history of lung cancer and breast cancer in the past with thrombocytopenia, status post multiple units of platelet transfusions. The patient had a CT scan. CT scan showed diffuse colitis, history of Clostridium difficile in the past, negative for Clostridium difficile. The patient also was found to have left upper extremity deep vein thrombosis. The patient is on IV vancomycin and Maxipime. ID followup note noticed. Continue the antibiotics . Overall prognosis poor for this patient. The patient has been on clear liquid diet, increase p.o. supplement. In view of the significant colitis, we would leave the patient only on the liquid diet for the time being. We will consider empirically starting the patient on p.o. Flagyl at this point. Thank you very much for allowing us to participate in the care of the patient. Efrem Dela Cruz MD
--- NOTE | 2018-08-13 09:19 | RAD ---
Date of service: 08/13/2018 HISTORY: hemopytsis, sob COMPARISON: 08/11/2018 TECHNIQUE: 1 view obtained. FINDINGS: LUNGS: Opacities at both lung bases. Infiltrate versus atelectasis. PLEURA: Small bilateral pleural effusion. No pneumothorax. CARDIOVASCULAR: No aortic atherosclerotic calcification present. Normal cardiac size. No pulmonary vascular congestion. OSSEOUS STRUCTURES: No significant abnormalities. VISUALIZED UPPER ABDOMEN: Normal. OTHER FINDINGS: None. IMPRESSION: Small bilateral pleural effusion. Opacities at both lung bases. Follow-up advised.
[2018-08-13] MEDS ORDERED: NOREPINEPHRINE BIT/0.9 % NACL 4 MG/250 ML BAG IV ONE (09:53)
[2018-08-13] MEDS ORDERED: Propofol 10 mg/ml Inj (20 ML) ONE (09:53)
[2018-08-13] MEDS: Magnesium Oxide 400 mg Tab UD PO SCH ×2 (10:00→18:00)
[2018-08-13] MEDS: Non Formulary Medication (Vitamin B Complex [Super B-50 Complex] 1 CAP) PO SCH (10:00)
[2018-08-13] MEDS: Enoxaparin 60 mg Syringe SC SCH (10:00)
--- NOTE | 2018-08-13 10:31 | CP.PCM.PN ---
<Stewart Arroyo - Last Filed: 08/13/18 18:11> Subjective - Date & Time of Evaluation Date of Evaluation: 08/13/18 Time of Evaluation: 08:28 - Subjective Subjective: Stewart Arroyo PGY2 GI Progress Note for Dr. Dela Cruz The patient was seen and examined at bedside. Overnight, the patient is feeling weaker and is spitting up blood-tinged sputum. ICU is consulted and will be evaluating the patient. She is still having fevers, and is tachycardic and tachypneic. Objective - Vital Signs/Intake and Output Vital Signs (last 24 hours): Temp Pulse Resp BP Pulse Ox 98 F 54 L 24 157/63 H 98 08/13/18 08:12 08/13/18 08:12 08/13/18 08:12 08/13/18 08:50 08/13/18 08:12 Intake and Output: 08/13/18 08/13/18 06:59 18:59 Intake Total 120 Balance 120 - Medications Medications: Current Medications Acetaminophen (Tylenol 325mg Tab) 650 mg PO Q4H PRN PRN Reason: Fever >100.4 F Last Admin: 08/13/18 02:54 Dose: 650 mg Albuterol/Ipratropium (Duoneb 3 Mg/0.5 Mg (3 Ml) Ud) 3 ml IH [id number] PRN PRN Reason: Shortness of Breath Last Admin: 08/12/18 03:00 Dose: 3 ml Amlodipine Besylate (Norvasc) 10 mg PO DAILY [facility] Last Admin: 08/12/18 09:24 Dose: 10 mg Arformoterol Tartrate (Brovana) 15 mcg IH [id number] [facility] Last Admin: 08/13/18 08:37 Dose: 15 mcg Atenolol (Tenormin) 50 mg PO DAILY [facility] Budesonide (Pulmicort Respules) 0.5 mg IH BIDRESP [facility] Last Admin: 08/13/18 08:38 Dose: 0.5 mg Clonazepam (Klonopin) 0.5 mg PO BID [facility]; Protocol Last Admin: 08/12/18 17:40 Dose: 0.5 mg Diphenhydramine HCl (Benadryl) 25 mg IVP Q8H PRN PRN Reason: Allergy symptoms Enoxaparin Sodium (Lovenox) 50 mg SC Q12H [facility]; Protocol Last Admin: 08/12/18 22:33 Dose: 50 mg Ergocalciferol (Drisdol 50,000 Intl Units Cap) 1 cap PO SUN [facility] Last Admin: 08/12/18 09:24 Dose: 1 cap Cefepime HCl (Maxipime 1gm) 1 gm in 100 mls @ 100 mls/hr IVPB Q8 [facility]; Protocol Stop: 08/20/18 22:01 Last Admin: 08/13/18 05:30 Dose: 100 mls/hr Vancomycin HCl (Vancomycin 1gm) 1 gm in 250 mls @ 167 mls/hr IVPB Q12H [facility]; Protocol Stop: 08/19/18 20:16 Last Admin: 08/12/18 22:32 Dose: 167 mls/hr Ibuprofen (Motrin Tab) 400 mg PO Q6H PRN PRN Reason: Fever >100.4 F Loratadine (Claritin) 10 mg PO DAILY [facility] Last Admin: 08/12/18 09:24 Dose: 10 mg Losartan Potassium (Cozaar) 50 mg PO QPM [facility] Last Admin: 08/12/18 17:39 Dose: 50 mg Magnesium Oxide (Mag-Ox) 400 mg PO BID [facility] Last Admin: 08/12/18 17:40 Dose: 400 mg Metoprolol Tartrate (Lopressor) 5 mg IVP ONCE PRN PRN Reason: HR above 130's Mirtazapine (Remeron) 15 mg PO HS [facility] Last Admin: 08/12/18 22:34 Dose: 15 mg Montelukast Sodium (Singulair) 10 mg PO DAILY [facility] Last Admin: 08/12/18 09:25 Dose: 10 mg Nicotine (Nicoderm Cq) 1 patch TD DAILY [facility] Last Admin: 08/12/18 09:26 Dose: Not Given Non-Formulary Medication (Vitamin B Complex [Super B-50 Complex]) 1 cap PO DAILY [facility] Last Admin: 08/12/18 09:26 Dose: Not Given Ondansetron HCl (Zofran Inj) 4 mg IVP Q6H PRN PRN Reason: Nausea/Vomiting Last Admin: 08/10/18 02:02 Dose: 4 mg Oxycodone HCl (Oxycodone Immediate Release Tab) 5 mg PO Q8H PRN PRN Reason: Pain, severe (8-10) Last Admin: 08/13/18 04:51 Dose: 5 mg Pantoprazole Sodium (Protonix Inj) 40 mg IVP DAILY [facility] Potassium Chloride (K-Dur 20 Meq Er Tab) 20 meq PO DAILY [facility] Last Admin: 08/12/18 09:24 Dose: 20 meq Sodium Chloride ([place] Nasal [place]) 0 ml NS QID [facility] Last Admin: 08/12/18 22:17 Dose: Not Given Tiotropium [place] (Spiriva) 18 mcg INH DAILY [facility] Last Admin: 08/12/18 09:23 Dose: 18 mcg Tramadol HCl (Ultram) 50 mg PO TID PRN PRN Reason: Pain, moderate (4-7) - Labs Labs: 08/12/18 09:10 08/12/18 09:10 - Constitutional Appears: Non-toxic, Cachectic, Chronically Ill - Head Exam Head Exam: ATRAUMATIC, NORMAL INSPECTION - Eye Exam Eye Exam: EOMI, Scleral icterus - ENT Exam ENT Exam: Mucous Membranes Moist, + blood-tinged sputum - Neck Exam Neck Exam: Full ROM, Normal Inspection - Respiratory Exam Respiratory Exam: Crackles (bibasilar), Decreased breath sounds. absent: Respiratory Distress - Cardiovascular Exam Cardiovascular Exam: RRR, +S1, +S2 - GI/Abdominal Exam GI & Abdominal Exam: Soft, Tenderness (diffuse mild), Normal Bowel Sounds. absent: Distended - Extremities Exam Extremities Exam: Full ROM, Normal Inspection - Neurological Exam Neurological Exam: Alert, Awake - Skin Skin Exam: Normal Color, Warm Assessment and Plan - Assessment and Plan (Free Text) Assessment: 53 year old female with a PMH of MDS (high grade, s/p chemotherapy), immunosuppression, lung cancer (s/p lobectomy, 2017), breast cancer s/p R breast mastectomy (2004), COPD, and endocarditis who is admitted for fevers. Patient complaining of mild abdominal pain. Labs and scans were reviewed. CT abd showing pancolitis, cdiff was negative for toxin. Patient continues to spike fevers, and is now becoming tachycardic and tachypneic. Over the weekend, V/Q scan was done showing low probability for PE. Due to blood- tinged sputum, ICU is consulted due to respiratory distress. Plan: - Abx per ID - would recommend Vanc PO for c.diff empiric treatment - cont CLD if tolerated - PPI for GI ppx - monitor H/H; transfusing per Heme/Onc - Palliative care is following the case - further recs per Dr. Dela Cruz Case was reviewed and discussed with Dr. Dela Cruz <Efrem Dela Cruz V - Last Filed: 08/13/18 22:22> Objective - Vital Signs/Intake and Output Vital Signs (last 24 hours): Temp Pulse Resp BP Pulse Ox 98.4 F 106 H 24 98/52 L 100 08/13/18 16:59 08/13/18 18:14 08/13/18 14:00 08/13/18 18:14 08/13/18 16:59 Intake and Output: 08/13/18 08/14/18 18:59 06:59 Intake Total 2550 Output Total 1850 Balance 700 - Medications Medications: Current Medications Albuterol/Ipratropium (Duoneb 3 Mg/0.5 Mg (3 Ml) Ud) 3 ml IH [id number] PRN PRN Reason: Shortness of Breath Last Admin: 08/12/18 03:00 Dose: 3 ml Amlodipine Besylate (Norvasc) 10 mg PO DAILY [facility] Last Admin: 08/13/18 10:00 Dose: Not Given Arformoterol Tartrate (Brovana) 15 mcg IH [id number] [facility] Last Admin: 08/13/18 21:00 Dose: 15 mcg Atenolol (Tenormin) 50 mg PO DAILY [facility] Last Admin: 08/13/18 10:00 Dose: Not Given Budesonide (Pulmicort Respules) 0.5 mg IH BIDRESP [facility] Last Admin: 08/13/18 21:00 Dose: 0.5 mg Clonazepam (Klonopin) 0.5 mg PO BID [facility]; Protocol Last Admin: 08/13/18 12:42 Dose: Not Given Diphenhydramine HCl (Benadryl) 25 mg IVP Q8H PRN PRN Reason: Allergy symptoms Ergocalciferol (Drisdol 50,000 Intl Units Cap) 1 cap PO SUN [facility] Last Admin: 08/12/18 09:24 Dose: 1 cap Fentanyl Citrate (Fentanyl Citrate/Sodium Chloride 1 Mg/100 Ml) 1,000 mcg in 100 mls @ 7.5 mls/hr IV .[id number] PRN; Protocol PRN Reason: TITRATE PER MD ORDER Last Admin: 08/13/18 12:53 Dose: 75 mcg/hr, 7.5 mls/hr Acetaminophen (Ofirmev) 1,000 mg in 100 mls @ 400 mls/hr IVPB Q8H PRN PRN Reason: fever>101.1 Stop: 08/15/18 12:07 Last Admin: 08/13/18 11:00 Dose: 400 mls/hr Propofol (Diprivan) 1,000 mg in 100 mls @ 1.591 mls/hr IV .Q24H PRN; Protocol PRN Reason: TITRATE PER MD ORDER Last Admin: 08/13/18 19:00 Dose: 50 mcg/kg/min, 15.908 mls/hr Doxycycline Hyclate 100 mg/ (Sodium Chloride) 100 mls @ 100 mls/hr IVPB Q12 [facility]; Protocol Stop: 08/20/18 13:31 Last Admin: 08/13/18 14:22 Dose: 100 mls/hr Piperacillin Sod/Tazobactam Sod (Zosyn 3.375 In Ns 100ml) 100 mls @ 25 mls/hr IVPB Q8 [facility]; Protocol Stop: 08/20/18 14:01 Last Admin: 08/13/18 14:48 Dose: 25 mls/hr Vancomycin HCl (Vancomycin 1gm) 1 gm in 250 mls @ 167 mls/hr IVPB 0330,1530 [facility]; Protocol Last Admin: 08/13/18 15:30 Dose: 167 mls/hr Sodium Chloride (Sodium Chloride 0.9%) 1,000 mls @ 100 mls/hr IV .Q10H [facility] Last Admin: 08/13/18 19:00 Dose: 100 mls/hr Ibuprofen (Motrin Tab) 400 mg PO Q6H PRN PRN Reason: Fever >100.4 F Loratadine (Claritin) 10 mg PO DAILY [facility] Last Admin: 08/13/18 10:00 Dose: Not Given Losartan Potassium (Cozaar) 50 mg PO QPM [facility] Last Admin: 08/13/18 18:14 Dose: Not Given Magnesium Oxide (Mag-Ox) 400 mg PO BID [facility] Last Admin: 08/13/18 18:00 Dose: Not Given Metoprolol Tartrate (Lopressor) 5 mg IVP ONCE PRN PRN Reason: HR above 130's Last Admin: 08/13/18 12:49 Dose: 5 mg Montelukast Sodium (Singulair) 10 mg PO DAILY [facility] Last Admin: 08/13/18 10:00 Dose: Not Given Mupirocin (Bactroban Ointment) 1 gm TOP BID [facility] Last Admin: 08/13/18 21:12 Dose: 1 unit Nicotine (Nicoderm Cq) 1 patch TD DAILY [facility] Last Admin: 08/12/18 09:26 Dose: Not Given Non-Formulary Medication (Vitamin B Complex [Super B-50 Complex]) 1 cap PO DAILY [facility] Last Admin: 08/13/18 10:00 Dose: Not Given Ondansetron HCl (Zofran Inj) 4 mg IVP Q6H PRN PRN Reason: Nausea/Vomiting Last Admin: 08/10/18 02:02 Dose: 4 mg Oxycodone HCl (Oxycodone Immediate Release Tab) 5 mg PO Q8H PRN PRN Reason: Pain, severe (8-10) Last Admin: 08/13/18 04:51 Dose: 5 mg Pantoprazole Sodium (Protonix Inj) 40 mg IVP DAILY [facility] Last Admin: 08/13/18 12:49 Dose: 40 mg Potassium Chloride (K-Dur 20 Meq Er Tab) 20 meq PO DAILY [facility] Last Admin: 08/13/18 14:00 Dose: 20 meq Sodium Chloride ([place] Nasal [place]) 0 ml NS QID [facility] Last Admin: 08/13/18 19:00 Dose: Not Given Tiotropium [place] (Spiriva) 18 mcg INH DAILY [facility] Last Admin: 08/12/18 09:23 Dose: 18 mcg Tramadol HCl (Ultram) 50 mg PO TID PRN PRN Reason: Pain, moderate (4-7) Tranexamic Acid (Tranexamic Acid) 500 mg IH TIDRESP [facility] Last Admin: 08/13/18 21:00 Dose: 500 mg - Labs Labs: 08/13/18 17:10 08/13/18 21:10 PT 24.0 SECONDS (9.4-12.5) H 08/13/18 17:10 INR 2.16 08/13/18 17:10 APTT 30.6 Seconds (26.9-38.3) 08/13/18 17:10 Attending/Attestation - Attestation I have personally seen and examined this patient.: Yes I have fully participated in the care of the patient.: Yes I have reviewed all pertinent clinical information, including history, physical exam and plan: Yes Notes (Text): This patient was seen and evaluated along with the resident team earlier today. Subsequent hospital course was noted. Discussed with the ICU staff. Patient is intubated now. This patient was advanced to myelodysplastic syndrome, thrombocytopenia but extremity DVT no transfer to ICU when the change of mental status respiratory distress on vent now. Sepsis on antibiotics as per ID pulmonary note reviewed wrote aspiration pneumonia History of abdominal pain pancolitis mainly in the left right side. Stool for C. difficile negative Overall prognosis guarded. Palliative care note reviewed Elevated LFT probably multifactorial drug-induced liver injury also has to be considered follow-up LFT. Hepatic congestion should also be considered in the differential diagnosis 08/13/18 22:21
[2018-08-13] MEDS: Propofol 10 mg/ml 1,000 MG/100 ML VIAL IV PRN ×2 (10:45→19:00)
--- NOTE | 2018-08-13 12:33 | CP.PCM.PN ---
Subjective - Date & Time of Evaluation Date of Evaluation: 08/13/18 Time of Evaluation: 11:00 - Subjective Subjective: Seen in ICU intubated Objective - Vital Signs/Intake and Output Vital Signs (last 24 hours): Temp Pulse Resp BP Pulse Ox 98 F 54 L 24 157/63 H 98 08/13/18 08:12 08/13/18 08:12 08/13/18 08:12 08/13/18 08:50 08/13/18 08:12 Intake and Output: 08/13/18 08/13/18 06:59 18:59 Intake Total 120 Balance 120 - Medications Medications: Current Medications Albuterol/Ipratropium (Duoneb 3 Mg/0.5 Mg (3 Ml) Ud) 3 ml IH [id number] PRN PRN Reason: Shortness of Breath Last Admin: 08/12/18 03:00 Dose: 3 ml Amlodipine Besylate (Norvasc) 10 mg PO DAILY [facility] Last Admin: 08/12/18 09:24 Dose: 10 mg Arformoterol Tartrate (Brovana) 15 mcg IH [id number] [facility] Last Admin: 08/13/18 08:37 Dose: 15 mcg Atenolol (Tenormin) 50 mg PO DAILY [facility] Budesonide (Pulmicort Respules) 0.5 mg IH BIDRESP [facility] Last Admin: 08/13/18 08:38 Dose: 0.5 mg Clonazepam (Klonopin) 0.5 mg PO BID [facility]; Protocol Last Admin: 08/12/18 17:40 Dose: 0.5 mg Diphenhydramine HCl (Benadryl) 25 mg IVP Q8H PRN PRN Reason: Allergy symptoms Ergocalciferol (Drisdol 50,000 Intl Units Cap) 1 cap PO SUN [facility] Last Admin: 08/12/18 09:24 Dose: 1 cap Cefepime HCl (Maxipime 1gm) 1 gm in 100 mls @ 100 mls/hr IVPB Q8 [facility]; Protocol Stop: 08/20/18 22:01 Last Admin: 08/13/18 05:30 Dose: 100 mls/hr Vancomycin HCl (Vancomycin 1gm) 1 gm in 250 mls @ 167 mls/hr IVPB Q12H [facility]; Protocol Stop: 08/19/18 20:16 Last Admin: 08/12/18 22:32 Dose: 167 mls/hr Fentanyl Citrate (Fentanyl Citrate/Sodium Chloride 1 Mg/100 Ml) 1,000 mcg in 100 mls @ 7.5 mls/hr IV .[id number] PRN; Protocol PRN Reason: TITRATE PER MD ORDER Acetaminophen (Ofirmev) 1,000 mg in 100 mls @ 400 mls/hr IVPB Q8H PRN PRN Reason: fever>101.1 Stop: 08/15/18 12:07 Ibuprofen (Motrin Tab) 400 mg PO Q6H PRN PRN Reason: Fever >100.4 F Loratadine (Claritin) 10 mg PO DAILY [facility] Last Admin: 08/12/18 09:24 Dose: 10 mg Losartan Potassium (Cozaar) 50 mg PO QPM [facility] Last Admin: 08/12/18 17:39 Dose: 50 mg Magnesium Oxide (Mag-Ox) 400 mg PO BID [facility] Last Admin: 08/12/18 17:40 Dose: 400 mg Metoprolol Tartrate (Lopressor) 5 mg IVP ONCE PRN PRN Reason: HR above 130's Montelukast Sodium (Singulair) 10 mg PO DAILY [facility] Last Admin: 08/12/18 09:25 Dose: 10 mg Nicotine (Nicoderm Cq) 1 patch TD DAILY [facility] Last Admin: 08/12/18 09:26 Dose: Not Given Non-Formulary Medication (Vitamin B Complex [Super B-50 Complex]) 1 cap PO DAILY [facility] Last Admin: 08/12/18 09:26 Dose: Not Given Ondansetron HCl (Zofran Inj) 4 mg IVP Q6H PRN PRN Reason: Nausea/Vomiting Last Admin: 08/10/18 02:02 Dose: 4 mg Oxycodone HCl (Oxycodone Immediate Release Tab) 5 mg PO Q8H PRN PRN Reason: Pain, severe (8-10) Last Admin: 08/13/18 04:51 Dose: 5 mg Pantoprazole Sodium (Protonix Inj) 40 mg IVP DAILY [facility] Potassium Chloride (K-Dur 20 Meq Er Tab) 20 meq PO DAILY [facility] Last Admin: 08/12/18 09:24 Dose: 20 meq Sodium Chloride ([place] Nasal [place]) 0 ml NS QID [facility] Last Admin: 08/12/18 22:17 Dose: Not Given Tiotropium [place] (Spiriva) 18 mcg INH DAILY [facility] Last Admin: 08/12/18 09:23 Dose: 18 mcg Tramadol HCl (Ultram) 50 mg PO TID PRN PRN Reason: Pain, moderate (4-7) Tranexamic Acid (Tranexamic Acid) 500 mg IH TIDRESP [facility] - Labs Labs: 08/12/18 09:10 08/12/18 09:10 - Constitutional Appears: Cachectic, Chronically Ill - Eye Exam Eye Exam: Normal appearance, PERRL - Respiratory Exam Respiratory Exam: Decreased Breath Sounds - Cardiovascular Exam Cardiovascular Exam: Tachycardia - GI/Abdominal Exam GI & Abdominal Exam: Soft, Normal Bowel Sounds - Neurological Exam Neurological Exam: Altered - Skin Skin Exam: Dry, Pallor Assessment and Plan - Assessment and Plan (Free Text) Assessment: 53 year old female with history of MDS, lung cancer (s/p lobectomy), R breast cancer s/p mastectomy, COPD, and endocarditis who is admitted with fever, LUE DVT, anemia, thrombocytopnenia. The patient and I had been in discussion regarding goals of care and and advance care planning. The patient stated that she did not want to be intubated of have CPR but was unwilling to compete a POLST without speaking with her daughter. I was was unable to reach daughter via phone. On Monday nursing staff also discussed resuscitation wishes with patient. Family(patients daughter and brother)were at bedside. Patient decided to hold off on signing DNR/DNI after speaking with Dr Lara. I was asked to meet with t he patient today to continue this discussion. She subsequently developed hemoptysis,tachypnea,tachycardia and was transferred to MICU. Dr Lopez spoke with family, they were updated of condition and poor prognosis. I then met with sisters who were at bedside.They verbalized understanding of patient's condition and prognosis. Option for extubation and comfort measures offered. Sisters waiting for patients daughter to arrive before making any decisions. Will continue ongoing discussions regarding goals of care. Time spent with family, 30 minutes Plan: Goals of care LUE DVT: PICC removed,continue Lovenox Thrombocytopenia: s/p FFP, plan for BMB when stable Anemia:s/p PRBC's, monitor CBC Foster colitis: C diff toxin and antigen negative blood cultures negative, stool studies pending. Continue Cefepime COPD: continue Brovana,Singulair,Duonebs. Pending broch
--- NOTE | 2018-08-13 12:38 | RAD ---
Date of service: 08/13/2018 HISTORY: TUBE PLACEMENT COMPARISON: 08/13/2018 TECHNIQUE: One view obtained. FINDINGS: LUNGS: Bilateral alveolar infiltrates are seen left greater than right. Chronic interstitial changes are seen in both upper lobes. The endotracheal tube and nasogastric tubes are in satisfactory position PLEURA: No significant pleural effusion identified, no pneumothorax apparent. CARDIOVASCULAR: No aortic atherosclerotic calcification present. Normal cardiac size. No pulmonary vascular congestion. OSSEOUS STRUCTURES: No significant abnormalities. VISUALIZED UPPER ABDOMEN: Normal. OTHER FINDINGS: None. IMPRESSION: Bilateral alveolar infiltrates are seen left greater than right. Chronic interstitial changes are seen in both upper lobes. The endotracheal tube and nasogastric tubes are in satisfactory position
[2018-08-13] MEDS ORDERED: Propofol 10 mg/ml Inj (100 ml) IV SCH (12:45)
[2018-08-13] MEDS: Metoprolol 1 mg/ml Inj IVP PRN ×2 (12:49→23:25)
[2018-08-13] MEDS: Fentanyl 1000mcg/100ml NS 1,000 MCG/100 ML BAG IV PRN ×2 (12:53→23:44)
--- NOTE | 2018-08-13 13:37 | CP.PCM.PN ---
<Scar Bermeo - Last Filed: 08/13/18 13:26> Subjective - Date & Time of Evaluation Date of Evaluation: 08/13/18 Time of Evaluation: 09:15 - Subjective Subjective: Scar Bermeo D.O. PGY-3, Internal Medicine Resident, Infectious Disease Progress Note 53-year-old female with a past medical history of myelodysplastic syndrome status post chemotherapy, lung cancer status post lobectomy, right breast mastec leonard, chronic obstructive pulmonary disease, and endocarditis who presented for platelet transfusion yesterday at the infusion clinic and was found to be febrile with a fever of 101.2. Infectious disease consultation was requested for his fever. Patient was seen and examined at bedside upon arrival to the ICU. Patient is tachypneic and having chest discomfort. Intensivists at bedside evaluating patient. Going to have central line placement and intubation. Objective - Vital Signs/Intake and Output Vital Signs (last 24 hours): Temp Pulse Resp BP Pulse Ox 98 F 120 H 24 118/63 98 08/13/18 08:12 08/13/18 12:49 08/13/18 08:12 08/13/18 12:49 08/13/18 08:12 Intake and Output: 08/13/18 08/13/18 06:59 18:59 Intake Total 120 Balance 120 - Medications Medications: Current Medications Albuterol/Ipratropium (Duoneb 3 Mg/0.5 Mg (3 Ml) Ud) 3 ml IH [id number] PRN PRN Reason: Shortness of Breath Last Admin: 08/12/18 03:00 Dose: 3 ml Amlodipine Besylate (Norvasc) 10 mg PO DAILY [facility] Last Admin: 08/13/18 10:00 Dose: Not Given Arformoterol Tartrate (Brovana) 15 mcg IH [id number] [facility] Last Admin: 08/13/18 08:37 Dose: 15 mcg Atenolol (Tenormin) 50 mg PO DAILY [facility] Budesonide (Pulmicort Respules) 0.5 mg IH BIDRESP [facility] Last Admin: 08/13/18 08:38 Dose: 0.5 mg Clonazepam (Klonopin) 0.5 mg PO BID [facility]; Protocol Last Admin: 08/13/18 12:42 Dose: Not Given Diphenhydramine HCl (Benadryl) 25 mg IVP Q8H PRN PRN Reason: Allergy symptoms Ergocalciferol (Drisdol 50,000 Intl Units Cap) 1 cap PO SUN [facility] Last Admin: 08/12/18 09:24 Dose: 1 cap Vancomycin HCl (Vancomycin 1gm) 1 gm in 250 mls @ 167 mls/hr IVPB Q12H [facility]; P rotocol Stop: 08/19/18 20:16 Last Admin: 08/12/18 22:32 Dose: 167 mls/hr Fentanyl Citrate (Fentanyl Citrate/Sodium Chloride 1 Mg/100 Ml) 1,000 mcg in 100 mls @ 7.5 mls/hr IV .[id number] PRN; Protocol PRN Reason: TITRATE PER MD ORDER Last Admin: 08/13/18 12:53 Dose: 75 mcg/hr, 7.5 mls/hr Acetaminophen (Ofirmev) 1,000 mg in 100 mls @ 400 mls/hr IVPB Q8H PRN PRN Reason: fever>101.1 Stop: 08/15/18 12:07 Propofol (Diprivan) 1,000 mg in 100 mls @ 1.591 mls/hr IV .Q24H PRN; Protocol PRN Reason: TITRATE PER MD ORDER Doxycycline Hyclate 100 mg/ (Sodium Chloride) 100 mls @ 100 mls/hr IVPB Q12 [facility]; Protocol Stop: 08/20/18 13:31 Piperacillin Sod/Tazobactam Sod (Zosyn 3.375 In Ns 100ml) 100 mls @ 25 mls/hr IVPB Q8 [facility]; Protocol Stop: 08/20/18 14:01 Ibuprofen (Motrin Tab) 400 mg PO Q6H PRN PRN Reason: Fever >100.4 F Loratadine (Claritin) 10 mg PO DAILY [facility] Last Admin: 08/13/18 10:00 Dose: Not Given Losartan Potassium (Cozaar) 50 mg PO QPM [facility] Last Admin: 08/12/18 17:39 Dose: 50 mg Magnesium Oxide (Mag-Ox) 400 mg PO BID [facility] Last Admin: 08/13/18 10:00 Dose: Not Given Metoprolol Tartrate (Lopressor) 5 mg IVP ONCE PRN PRN Reason: HR above 130's Last Admin: 08/13/18 12:49 Dose: 5 mg Montelukast Sodium (Singulair) 10 mg PO DAILY [facility] Last Admin: 08/13/18 10:00 Dose: Not Given Nicotine (Nicoderm Cq) 1 patch TD DAILY [facility] Last Admin: 08/12/18 09:26 Dose: Not Given Non-Formulary Medication (Vitamin B Complex [Super B-50 Complex]) 1 cap PO DAILY [facility] Last Admin: 08/12/18 09:26 Dose: Not Given Ondansetron HCl (Zofran Inj) 4 mg IVP Q6H PRN PRN Reason: Nausea/Vomiting Last Admin: 08/10/18 02:02 Dose: 4 mg Oxycodone HCl (Oxycodone Immediate Release Tab) 5 mg PO Q8H PRN PRN Reason: Pain, severe (8-10) Last Admin: 08/13/18 04:51 Dose: 5 mg Pantoprazole Sodium (Protonix Inj) 40 mg IVP DAILY [facility] Last Admin: 08/13/18 12:49 Dose: 40 mg Potassium Chloride (K-Dur 20 Meq Er Tab) 20 meq PO DAILY [facility] Last Admin: 08/12/18 09:24 Dose: 20 meq Sodium Chloride ([place] Nasal [place]) 0 ml NS QID [facility] Last Admin: 08/12/18 22:17 Dose: Not Given Tiotropium [place] (Spiriva) 18 mcg INH DAILY [facility] Last Admin: 08/12/18 09:23 Dose: 18 mcg Tramadol HCl (Ultram) 50 mg PO TID PRN PRN Reason: Pain, moderate (4-7) Tranexamic Acid (Tranexamic Acid) 500 mg IH TIDRESP [facility] - Labs Labs: 08/12/18 09:10 08/12/18 09:10 - Constitutional Appears: Chronically Ill female, anxious - Head Exam Head Exam: ATRAUMATIC, NC - Eye Exam Eye Exam: EOMI, PERRL. absent: Scleral icterus - ENT Exam ENT Exam: Mucous Membranes Moist - Neck Exam Neck exam: Positive for: Normal Inspection. Negative for: Lymphadenopathy - Respiratory Exam Respiratory Exam: short of breath, using accessory muscles - Cardiovascular Exam Cardiovascular Exam: tachycardic, +S1, +S2. absent: Gallop, Rubs - GI/Abdominal Exam GI & Abdominal Exam: mildly tender throughout, soft - Extremities Exam Extremities exam: Negative for: calf tenderness, pedal edema - Neurological Exam Neurological exam: Alert, Oriented x4 - Psychiatric Exam Psychiatric exam: anxious - Skin Skin Exam: Dry, Warm Assessment and Plan - Assessment and Plan (Free Text) Assessment: 53-year-old female with a past medical history of myelodysplastic syndrome status post chemotherapy, lung cancer status post lobectomy, right breast mastectomy, chronic obstructive pulmonary disease, and endocarditis who presented for platelet transfusion yesterday at the infusion clinic and was found to be febrile with a fever of 101.2. Infectious disease consultation was requested for his fever. Plan: New sepsis likely 2/2 HCAP Sepsis likely 2/2 pancolitis LUE DVT 2/2 PICC line Immunocompromise state High-grade myelodysplastic syndrome with thrombocytopenia Lung cancer status post lobectomy Febrile overnight up to 103.4 with tachycardia and tachypnea CXR reviewed, bilateral alveolar infiltrates Given hemoptysis and tachypnea and above CXR findings, possible diffuse alveolar hemorrhage vs HCAP? or ARDS Will again broaden her abx regimen, D/C'ed cefepime, added doxycyline and zosyn Continue vancomycin Undergoing resuscitation at this time with central line placement and intubation Will discuss with ICU team shortly Palliative care following, recs appreciated Prognosis very guarded at this time We will follow with you Patient was seen and examined and case to be discussed with attending physician Thank you for the pleasure participating in the care of this interesting patient <Terrance Juan - Last Filed: 08/13/18 15:22> Objective - Vital Signs/Intake and Output Vital Signs (last 24 hours): Temp Pulse Resp BP Pulse Ox 98 F 120 H 24 118/63 98 08/13/18 08:12 08/13/18 12:49 08/13/18 08:12 08/13/18 12:49 08/13/18 08:12 Intake and Output: 08/13/18 08/13/18 06:59 18:59 Intake Total 120 Balance 120 - Medications Medications: Current Medications Albuterol/Ipratropium (Duoneb 3 Mg/0.5 Mg (3 Ml) Ud) 3 ml IH [id number] PRN PRN Reason: Shortness of Breath Last Admin: 08/12/18 03:00 Dose: 3 ml Amlodipine Besylate (Norvasc) 10 mg PO DAILY [facility] Last Admin: 08/13/18 10:00 Dose: Not Given Arformoterol Tartrate (Brovana) 15 mcg IH [id number] [facility] Last Admin: 08/13/18 08:37 Dose: 15 mcg Atenolol (Tenormin) 50 mg PO DAILY [facility] Budesonide (Pulmicort Respules) 0.5 mg IH BIDRESP [facility] Last Admin: 08/13/18 08:38 Dose: 0.5 mg Clonazepam (Klonopin) 0.5 mg PO BID [facility]; Protocol Last Admin: 08/13/18 12:42 Dose: Not Given Diphenhydramine HCl (Benadryl) 25 mg IVP Q8H PRN PRN Reason: Allergy symptoms Ergocalciferol (Drisdol 50,000 Intl Units Cap) 1 cap PO SUN [facility] Last Admin: 08/12/18 09:24 Dose: 1 cap Fentanyl Citrate (Fentanyl Citrate/Sodium Chloride 1 Mg/100 Ml) 1,000 mcg in 1 00 mls @ 7.5 mls/hr IV .[id number] PRN; Protocol PRN Reason: TITRATE PER MD ORDER Last Admin: 08/13/18 12:53 Dose: 75 mcg/hr, 7.5 mls/hr Acetaminophen (Ofirmev) 1,000 mg in 100 mls @ 400 mls/hr IVPB Q8H PRN PRN Reason: fever>101.1 Stop: 08/15/18 12:07 Last Admin: 08/13/18 11:00 Dose: 400 mls/hr Propofol (Diprivan) 1,000 mg in 100 mls @ 1.591 mls/hr IV .Q24H PRN; Protocol PRN Reason: TITRATE PER MD ORDER Last Admin: 08/13/18 13:39 Dose: 5 mcg/kg/min, 1.591 mls/hr Doxycycline Hyclate 100 mg/ (Sodium Chloride) 100 mls @ 100 mls/hr IVPB Q12 [facility]; Protocol Stop: 08/20/18 13:31 Last Admin: 08/13/18 14:22 Dose: 100 mls/hr Piperacillin Sod/Tazobactam Sod (Zosyn 3.375 In Ns 100ml) 100 mls @ 25 mls/hr IVPB Q8 [facility]; Protocol Stop: 08/20/18 14:01 Last Admin: 08/13/18 14:48 Dose: 25 mls/hr Potassium Chloride (Potassium Chloride 10 Meq/100 Ml) 10 meq in 100 mls @ 50 mls/hr IVPB Q2H [facility] Stop: 08/13/18 18:14 Last Admin: 08/13/18 14:15 Dose: 50 mls/hr Vancomycin HCl (Vancomycin 1gm) 1 gm in 250 mls @ 167 mls/hr IVPB 0330,1530 [facility]; Protocol Ibuprofen (Motrin Tab) 400 mg PO Q6H PRN PRN Reason: Fever >100.4 F Loratadine (Claritin) 10 mg PO DAILY [facility] Last Admin: 08/13/18 10:00 Dose: Not Given Losartan Potassium (Cozaar) 50 mg PO QPM [facility] Last Admin: 08/12/18 17:39 Dose: 50 mg Magnesium Oxide (Mag-Ox) 400 mg PO BID [facility] Last Admin: 08/13/18 10:00 Dose: Not Given Metoprolol Tartrate (Lopressor) 5 mg IVP ONCE PRN PRN Reason: HR above 130's Last Admin: 08/13/18 12:49 Dose: 5 mg Montelukast Sodium (Singulair) 10 mg PO DAILY [facility] Last Admin: 08/13/18 10:00 Dose: Not Given Nicotine (Nicoderm Cq) 1 patch TD DAILY [facility] Last Admin: 08/12/18 09:26 Dose: Not Given Non-Formulary Medication (Vitamin B Complex [Super B-50 Complex]) 1 cap PO DAILY [facility] Last Admin: 08/12/18 09:26 Dose: Not Given Ondansetron HCl (Zofran Inj) 4 mg IVP Q6H PRN PRN Reason: Nausea/Vomiting Last Admin: 08/10/18 02:02 Dose: 4 mg Oxycodone HCl (Oxycodone Immediate Release Tab) 5 mg PO Q8H PRN PRN Reason: Pain, severe (8-10) Last Admin: 08/13/18 04:51 Dose: 5 mg Pantoprazole Sodium (Protonix Inj) 40 mg IVP DAILY [facility] Last Admin: 08/13/18 12:49 Dose: 40 mg Potassium Chloride (K-Dur 20 Meq Er Tab) 20 meq PO DAILY [facility] Last Admin: 08/13/18 14:00 Dose: 20 meq Sodium Chloride ([place] Nasal [place]) 0 ml NS QID [facility] Last Admin: 08/12/18 22:17 Dose: Not Given Tiotropium [place] (Spiriva) 18 mcg INH DAILY [facility] Last Admin: 08/12/18 09:23 Dose: 18 mcg Tramadol HCl (Ultram) 50 mg PO TID PRN PRN Reason: Pain, moderate (4-7) Tranexamic Acid (Tranexamic Acid) 500 mg IH TIDRESP [facility] - Labs Labs: 08/13/18 13:15 08/13/18 13:15 Attending/Attestation - Attestation I have personally seen and examined this patient.: Yes I have fully participated in the care of the patient.: Yes I have reviewed all pertinent clinical information, including history, physical exam and plan: Yes
[2018-08-13 13:40] LABS: BASO # 0.03 K/mm3 (0.0-2.0); BASO % 0.9 % (0.0-3.0); EOS % 0.3 % (1.5-5.0); HEMOGLOBIN 7.8 g/dL (12.0-16.0); LYMPH # 0.7 (1.2-3.4); LYMPH % 21.2 % (22.0-35.0); MEAN CELL VOLUME 87.6 fl (80.0-105.0); MEAN CORPUSCULAR HEMOGLOBIN 29.2 pg (25.0-35.0); MEAN CORPUSCULAR HGB CONC 33.3 g/dl (31.0-37.0); MEAN PLATELET VOLUME 8.2 fl (7.0-11.0); MONO # 1.2 (0.1-0.6); MONO % 39.2 % (1.0-6.0); RBC 2.67 10^6/uL (3.5-6.1); RED CELL DISTRIBUTION WIDTH 15.9 % (11.5-14.5); WHITE BLOOD COUNT 3.2 10^3/uL (4.5-11.0)
[2018-08-13 13:42] LABS: PLATELET COUNT 44 10^3/uL (120.0-450.0)
[2018-08-13 13:56] LABS: ALB/GLOB RATIO 0.8 (1.1-1.8); ALBUMIN 2.5 g/dL (3.0-4.8); ALT/SGPT 32 U/L (7-56); AST/SGOT 29 U/L (14-36); BLOOD UREA NITROGEN 18 mg/dL (7-21); CALCIUM 8.3 mg/dL (8.4-10.5); GFR NON-AFRICAN AMERICAN > 60
[2018-08-13] MEDS: Potassium Chloride 20 mEq ER Tab PO SCH (14:00)
[2018-08-13] MEDS ORDERED: Magnesium Sulfate 2 gm/50 ml 2 GM/50 ML BAG IVPB ONE (14:05)
[2018-08-13] MEDS: Piperacillin/Tazobact 3.375 gm 100 ML IVPB SCH (14:48)
--- NOTE | 2018-08-13 15:01 | PN ---
DATE: 08/13/2018 PULMONARY PROGRESS NOTE REFERRING PHYSICIAN: August Lara MD SUBJECTIVE: The patient is seen lying in bed. Presently intubated. Nasogastric tube in place. Nephew was at bedside. No hemoptysis, hematemesis, hematuria, diarrhea reported at this time. This morning, the patient was noted lethargic with tachypnea, tachycardia, and hemoptysis. The patient was transferred to ICU where she was intubated. Nasogastric tube currently in place. OBJECTIVE: GENERAL: Sedated. VITAL SIGNS: Blood pressure 119/57, pulse 124, oxygen saturation 97%, temperature 98 during visit. HEENT: Nasogastric tube in place. Endotracheal tube in place. RESPIRATORY: Few rhonchi was scattered. CARDIOVASCULAR: S1 and S2. Tachycardic. ABDOMEN: Soft. No distention. No organomegaly. EXTREMITIES: No bilateral lower extremity edema. NEUROLOGIC: Intubated and sedated. MEDICATIONS: Reviewed. Tylenol 1000 mg in 100 mL at 400 mL per hour every 8 hours p.r.n., DuoNeb 3 mL inhalation every 4 hours p.r.n., Norvasc 10 mg daily, Brovana 15 mcg every 12 hours, atenolol 50 mg daily, Pulmicort 0.5 mg inhalation twice a day. Klonopin 0.5 mg twice a day, Benadryl 25 mg IV push every 8 hours p.r.n., doxycycline 100 mg every 12 hours, ergocalciferol one cap weekly, fentanyl 1000 mcg in 100 mL at 7.5 mL per hour, Motrin 400 mg every 6 hours p.r.n., Claritin 10 mg daily, Cozaar 50 mg in the evening, magnesium oxide 400 mg twice a day, metoprolol tartrate 5 mg IV push p.r.n. for heart rate above 130, Singulair 10 mg daily, Nicotine patch transdermal daily, vitamin B complex daily, Zofran 4 mg IV push every 6 hours p.r.n., oxycodone 5 mg every 8 hours p.r.n., Protonix 40 mg daily, Zosyn 3.375 g every 8 hours, potassium chloride 20 mEq daily, propofol 1000 mg in 100 mL at 1 mL per hour, [place] Nasal [place] 4 times a day, Spiriva 18 mcg inhalation daily, Ultram 50 mg three times a day p.r.n., tranexamic acid 500 mg three times a day, vancomycin 1 g every 12 hours. LABORATORY DATA: Reviewed. PCO2 of 42, pO2 of 49, HCO3 of 21.6. ABG, pH 7.32 on FIO2 of 100. Procalcitonin 55.47. C. diff antigen toxin negative. Blood cultures preliminary, no growth after 24 hours. Stool culture final shows no Salmonella, Shigella, or Campylobacter isolated. Chest x-ray shows bilateral alveolar infiltrates, left greater than right, chronic interstitial changes in both upper lobes. Endotracheal tube and nasogastric tube in satisfactory position. IMPRESSION AND PLAN: Myelodysplasia, history of lung cancer requiring lobectomy in the past, thrombocytopenia, sickle cell disease, anemia, chronic lung disease, left upper extremity deep venous thrombosis. VQ scan negative for pulmonary embolism. During intubation, it is reported that bilious secretions were noted. Procalcitonin level is positive. Possible aspiration pneumonia. Risks versus benefits of anticoagulation assessed. Continue to elevate left upper extremity, Hematology-Vascular followup, head of bed elevated 45 degrees, continue broad-spectrum antibiotics covering healthcare-associated bacteria. Bronchoscopy to be performed today by senior sas developer. Continue inhaled bronchodilators, gastric prophylaxis. Continue sequential compression devices to bilateral lower extremities for deep venous thrombosis prophylaxis. We will followup with ABG, chest x-ray, CBC, CMP in the morning. Critical care time spent more than 35 minutes. This patient was seen and examined with Dr. Maurer. Discussed assessment and plan as described above. This patient was seen and examined with Henry Marquez, nurse practitioner. Discussed assessment and plan as described above. Thank you for this consult. We will follow with you. Henry Marquez APN Solange Maurer MD JONAH
[2018-08-13] MEDS: Vancomycin 1gm in NS 250ml 1 GM/250 ML BAG IVPB SCH (15:30)
[2018-08-13] MEDS: Tranexamic Acid 100 mg/ml IH SCH ×2 (16:56→21:00)
[2018-08-13 17:19] LABS: BASO # 0.05 K/mm3 (0.0-2.0); BASO % 1.2 % (0.0-3.0); HEMOGLOBIN 7.9 g/dL (12.0-16.0); MEAN CELL VOLUME 88.5 fl (80.0-105.0); MEAN CORPUSCULAR HEMOGLOBIN 29.4 pg (25.0-35.0); MEAN CORPUSCULAR HGB CONC 33.2 g/dl (31.0-37.0); MEAN PLATELET VOLUME 8.1 fl (7.0-11.0); MONO % 25.7 % (1.0-6.0); RBC 2.69 10^6/uL (3.5-6.1); RED CELL DISTRIBUTION WIDTH 16.1 % (11.5-14.5)
[2018-08-13 17:29] LABS: INR 2.16; PARTIAL THROMBOPLASTIN TIME 30.6 Seconds (26.9-38.3)
[2018-08-13 17:42] LABS: PLATELET COUNT 34 10^3/uL (120.0-450.0)
[2018-08-13 17:52] LABS: ARTERIAL BLOOD GAS HCO3 21.4 mmol/L (21-28); ARTERIAL BLOOD GAS HEMOGLOBIN 10.1 g/dL (11.7-17.4); ARTERIAL BLOOD GAS O2 CAPACITY 13.8 mL/dl (16-24); ARTERIAL BLOOD GAS O2 CONTENT 13.5 ML/dl (15-23); ARTERIAL BLOOD GAS PCO2 51 mm/Hg (35-45); ARTERIAL BLOOD GAS PH 7.23 (7.35-7.45)
[2018-08-13 18:09] LABS: ATYPICAL LYMPHOCYTE 7 % (0.0-0.0); EOSINOPHIL 13 % (0.0-3.0); LYMPHOCYTE 25 % (22.0-35.0); MONOCYTE 36 % (1.0-6.0); NEUTROPHIL 19 % (50.0-70.0); PLATELET ESTIMATE LOW (NORMAL)
[2018-08-13] MEDS: Sodium Chloride 0.9% 1,000 ML IV SCH (19:00)
--- NOTE | 2018-08-13 19:00 | RAD ---
Date of service: 08/13/2018 HISTORY: pneumonia COMPARISON: August 13, 2018. August 13, 2018.At 10:33. FINDINGS: LUNGS: Stable multifocal infiltrates. PLEURA: No significant pleural effusion identified, no pneumothorax apparent. CARDIOVASCULAR: No atherosclerotic calcification present Normal. OSSEOUS STRUCTURES: No significant abnormalities. VISUALIZED UPPER ABDOMEN: Normal. OTHER FINDINGS: Stable and satisfactory position of support apparatus including endotracheal tube and feeding tube. IMPRESSION: No significant interval change compared to the prior examination(s).
[2018-08-13] MEDS: Mupirocin 2% Ointment 15 GM TUBE TOP SCH (21:12)
[2018-08-13 21:26] LABS: BLOOD UREA NITROGEN 19 mg/dL (7-21); CALCIUM 7.8 mg/dL (8.4-10.5); GFR NON-AFRICAN AMERICAN > 60
[2018-08-13] MEDS ORDERED: Metoprolol 1 mg/ml Inj ONE (23:24)
[2018-08-14] MEDS: Propofol 10 mg/ml 1,000 MG/100 ML VIAL IV PRN (00:15)
--- NOTE | 2018-08-14 00:22 | CON ---
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 Subsequent workup was directed toward ruling out and treating infection as well as finding the potential source of it. CAT scan of the abdomen and pelvis revealed inflammation in the terminal ileum; however, subsequent stool analysis for C. diff returned negative. Blood culture and urine culture were also negative for any source of infection. Urine for Legionella and streptococcal antigen was ordered but still pending. Subsequent flow cytometry was also performed as a concern for hematologic malignancy related fever was also raised. There was substantial increase in number of blasts, thus possibility of blast crisis was also brought up. The patient was followed up by Dr. Lopez from Hem/Onc service and Dr. Juan from ID service. The patient was put on broad-spectrum antibiotics; however, fever persisted. It appears that the patient had been evaluated for bone marrow transplant at [facility], however, was found to be not an appropriate candidate for it due to substantial decrease in lung capacity. As per conversation with Dr. Lopez, risks of treating her AML with aggressive chemotherapy would substantially overweigh the benefits at the point prior to admission to the ICU. Today, the patient was admitted to ICU with hypoxemic respiratory failure, requiring 100% of partial non-rebreather to maintain oxygen saturation above 93%. Upon ICU evaluation, the patient was found to be in severe respiratory distress, breathing 40-45 times per minute, and visibly tired with paradoxical respiration. Emergent right femoral central venous catheter was placed for IV access, and the patient was emergently intubated. Of note, the patient's platelet count was 10. However, the patient had diagnosed left upper extremity DVT for which she was on Lovenox. Lovenox was stopped, and emergent order for platelet transfusion was made. Chest x-ray showed progression of bilateral infiltrate, and the broad differential diagnosis was put forth which will be discussed in assessment and plan section. The patient continued to be febrile up to 103. No vomiting. No chills, no sweats. No chest pain was reported. Of note, echocardiogram was done 2 days ago, which revealed only mildly decreased left ventricular ejection fraction with normal right ventricular function and only mild pulmonary hypertension. 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 ALLERGIES: NKDA. FAMILY HISTORY: Noncontributory. SOCIAL HISTORY: The patient was an active smoker prior to admission to the hospital; however, recently was put on Nicorette patch. No illicit drug abuse or drinking alcohol. REVIEW OF SYSTEMS: Review of 12-organ system other than mentioned in history of present illness is negative. MEDICATIONS: Tylenol IV, Norvasc 10 mg p.o. daily will be put on hold, Brovana, atenolol, Pulmicort, Klonopin (will be put on hold), Benadryl p.r.n., ergocalciferol, fentanyl drip (the patient is intubated), hydrocortisone 50 mg IV x1 along with Tylenol IV will be given prior to platelet transfusion, Claritin (will be put on hold), magnesium oxide, cefepime, Singulair, nicotine patch (will be put on hold), Zofran p.r.n., oxycodone p.r.n., Protonix, Spiriva will be put on hold, the patient will be on DuoNeb inhaled, tranexamic acid (the patient presented with artemio blood hemoptysis), vancomycin, and vitamin B complex. PHYSICAL EXAMINATION: VITAL SIGNS: Heart rate 130, temperature 103.1, blood pressure 130/80, oxygen saturation 96% on 60% FiO2. ENT: Head and neck atraumatic. The patient is intubated. LUNGS: Crackles bilaterally. HEART: Regular rate and rhythm. S1, S2 normal. ABDOMEN: Soft, nontender, nondistended. MUSCULOSKELETAL: Trace bilateral pedal and ankle edema. NEUROLOGIC: The patient was seen moving all extremities prior to intubation. SKIN: Moist. PSYCHIATRIC: The patient was alert and wake prior to intubation. LABORATORY DATA: Sodium 144, potassium 3.2, chloride 113, carbon dioxide 20, BUN 18, creatinine 0.7, glucose 98. Procalcitonin 55.47. AST 26, ALT 17, bilirubin 5.9. WBC 6.9, hemoglobin 8.7, platelet count 10. Blood gas after intubation 7.32 (respiratory rate increased to 25), pCO2 of 42, pO2 of 49. This ABG was done prior to intubation. CAT scan of the abdomen and pelvis, CAT scan of the chest reviewed. ASSESSMENT: This is a 53-year-old lady who presented to Intensive Care Unit with hypoxemic respiratory failure, artemio hemoptysis in the setting of platelet count 10, and Lovenox-related iatrogenic coagulopathy for treatment of left upper extremity deep venous thrombosis. In this immunocompromised patient, differential diagnosis of bilateral infiltrate with hypoxemic respiratory failure can be broad and includes infectious and noninfectious etiology, including infectious. autoimmune and malignancy related diffuse alveolar hemmorrhage. The patient is intubated. Tracheal aspirate will be sent for microbiological analysis. Once platelet is transfused, bronchoscopy with bronchoalveolar lavage will be performed, that will allow not only microbiological analysis but better assess diffuse alveolar hemorrhage of other potential etiology. Possibility of bacterial, atypical bacterial, mycobacterial, fungal, and viral infection at this time all are on differential. Possibility of blast crisis with subsequent infiltration of the lungs and diffuse alveolar hemorrhage also possible. Patient does have history of SLE, having DAH due to SLE without involvement of kidneys will be unlikely but not impossible, however this diagnosis and its treatment would require ruling out infection first. Thus, bronchoscopy appears to be in order once platelet is transfused. Blood culture, urine culture were negative so far. Stool for Clostridium diff was also negative. I spoke with Dr. Juan and it was decided to broaden antibiotic coverage with meropenem and continue vancomycin (Linezolid may drop platelet function further). I will also send 1, 3-D beta-glucan and galactomannan for analysis as the patient is at risk for fungemia and invasive fungal infection. Possibility of viral infection including Cytomegalovirus pneumonitis (the patient has pneumonia, gastrointestinal tract involvement) is there. Other vital infection may also be on differential list including adenovirus. Cytomegalovirus PCR is pending. PCP is less likely as LDH is normal Neuro: The patient is intubated, sedated with propofol and fentanyl. We will proceed with neuromuscular blockade to optimize the patient's ventilator synchrony. Train of four and bispectral index will be instituted to monitor the patient's consciousness. Pulmonary: The patient has hypoxemic respiratory failure secondary to acute respiratory distress syndrome, likely due to diffuse alveolar hemorrhage of infectious or noninfectious etiology. We will proceed with protective lung ventilation strategy, permissive hypercapnia, will maintain pH above 7.3. Maintaining plateau pressure less than 30 cm of water and using higher PEEP to FiO2 ratio. Conservative fluid and oxygen management as hemodynamic allows. Daily sedation vacation and weaning trials once underlying problem resolves or improves. Head of bed elevated more 35 degrees and oral hygiene. Once platelet transfused, bronchoscopy with bronchoalveolar lavage will be considered. Cardiovascular: The patient does have sinus tachycardia. She was on beta-blockers prior to admission to ICU. We will continue with that for now. Echocardiogram revealed only mildly decreased left ventricular systolic function. Only mild pulmonary hypertension and preserved right ventricular function. [employer]ator, Dr. Shaw is following the patient as well. Infectious Disease: The patient is on broad-spectrum antibiotics which will be broadened more. Infectious Disease service is following the patient as well. Procalcitonin is highly elevated which may suggest bacterial infection. We will also send for galactomannan and 1, 3-D beta-glucan to count for possibility of invasive fungal infection. Possibility of Cytomegalovirus pneumonitis is also there. Cytomegalovirus PCR is pending. Bronchoscopy may provide more information about etiology of the patient's hypoxemic respiratory failure as well. PCP is less likely as LDH is normal Gastrointestinal: At the present time, the patient will be n.p.o. LFTs are normal; however, total bilirubin is elevated. The patient does have some jaundice. Gastroenterology consult is on board. Most likely, it is related to some hemolytic component. We will continue with gastrointestinal prophylaxis. Endocrine: We will maintain blood glucose within 140-180 range according to NICE-SUGAR trial. Renal: The patient's creatinine is within normal limits. Godinez catheter will be placed and urine output will be monitored with a goal of more than 0.5 mL/kg per hour. We will try to avoid hyperchloremia and maintain mean arterial pressure more than 65 while avoiding nephrotoxic medication but not at expense of treating underlying disease. Hematology/Oncology: The patient does have history of myelodysplastic syndrome which likely transformed into acute myeloid leukemia. Peripheral blood flow cytometry revealed increased number of myeloblasts which puts blastic infiltration of the lung with subsequent diffuse alveolar hemorrhage on the differential diagnosis list. However, first, infectious etiology of the patient's clinical deterioration has to be ruled out as described above. Dr. Lopez is on board. We will stop Lovenox. We will transfuse platelets. ccm time 40 min Lawrence Lema MD JONAH
[2018-08-14] MEDS: Piperacillin/Tazobact 3.375 gm 100 ML IVPB SCH ×4 (00:23→22:00)
[2018-08-14] MEDS: Vancomycin 1gm in NS 250ml 1 GM/250 ML BAG IVPB SCH ×2 (03:30→15:55)
--- NOTE | 2018-08-14 03:50 | OP ---
PROCEDURE DATE: 08/13/2018 PROCEDURE: Emergent right femoral vein. INDICATION: IV access. DESCRIPTION OF PROCEDURE: After obtaining informed consent, operational area was sterilized. Maximum barrier precautions used.. Right femoral vein was cannulated according to sterile Seldinger technique under real-time ultrasound guidance. Guidewire was removed. Hemostasis achieved. Sterile dressing was applied. The patient tolerated the procedure well. EBL was minimal. Lawrence Lema MD MTDJatin
[2018-08-14] MEDS: Sodium Chloride 0.9% 1,000 ML IV SCH (04:34)
[2018-08-14 05:54] LABS: ARTERIAL BLOOD GAS HCO3 20.7 mmol/L (21-28); ARTERIAL BLOOD GAS HEMOGLOBIN 7.2 g/dL (11.7-17.4); ARTERIAL BLOOD GAS O2 CAPACITY 9.8 mL/dl (16-24); ARTERIAL BLOOD GAS O2 SAT 92.1 % (95-98); ARTERIAL BLOOD GAS PCO2 45 mm/Hg (35-45); ARTERIAL BLOOD GAS PH 7.27 (7.35-7.45); ARTERIAL BLOOD GAS TCO2 22.1 mmol.L (22-28)
[2018-08-14 06:54] LABS: BASO # 0.02 K/mm3 (0.0-2.0); BASO % 0.5 % (0.0-3.0); HEMOGLOBIN 7.6 g/dL (12.0-16.0); LYMPH # 0.6 (1.2-3.4); MEAN CELL VOLUME 88.3 fl (80.0-105.0); MEAN CORPUSCULAR HEMOGLOBIN 29.6 pg (25.0-35.0); MEAN CORPUSCULAR HGB CONC 33.5 g/dl (31.0-37.0); MONO # 1.8 (0.1-0.6); MONO % 43.8 % (1.0-6.0); RBC 2.57 10^6/uL (3.5-6.1); RED CELL DISTRIBUTION WIDTH 16.3 % (11.5-14.5)
[2018-08-14 06:59] LABS: PLATELET COUNT 23 10^3/uL (120.0-450.0)
[2018-08-14 07:00] LABS: PLATELET COUNT MANUAL 26 K/mm3 (120-450); PLATELET ESTIMATE LOW (NORMAL)
[2018-08-14 07:04] LABS: ALB/GLOB RATIO 0.7 (1.1-1.8); ALBUMIN 2.1 g/dL (3.0-4.8); ALT/SGPT 25 U/L (7-56); AST/SGOT 26 U/L (14-36); BLOOD UREA NITROGEN 21 mg/dL (7-21); CALCIUM 7.7 mg/dL (8.4-10.5); GFR NON-AFRICAN AMERICAN > 60
[2018-08-14] MEDS: NOREPINEPHRINE BIT/0.9 % NACL 4 MG/250 ML BAG IV PRN (07:30)
--- NOTE | 2018-08-14 07:31 | CP.PCM.PN ---
<Stewart Arroyo - Last Filed: 08/14/18 17:18> Subjective - Date & Time of Evaluation Date of Evaluation: 08/14/18 Time of Evaluation: 07:31 - Subjective Subjective: Stewart Arroyo PGY2 GI Progress Note Patient was seen and examined at bedside in ICU. The patient remains intubated, on vent and on sedation but is awake.Overnight, the patient passed stools, but not enough for c.diff testing. She is not requiring vasopressor support at this time. She is s/p BAL which showed substantial areas of hemorrhage. Objective - Vital Signs/Intake and Output Vital Signs (last 24 hours): Temp Pulse Resp BP Pulse Ox 98.4 F 106 H 24 98/52 L 100 08/13/18 16:59 08/13/18 18:14 08/13/18 14:00 08/13/18 18:14 08/13/18 16:59 Intake and Output: 08/14/18 08/14/18 06:59 18:59 Intake Total 200 Balance 200 - Medications Medications: Current Medications Albuterol/Ipratropium (Duoneb 3 Mg/0.5 Mg (3 Ml) Ud) 3 ml IH [id number] PRN PRN Reason: Shortness of Breath Last Admin: 08/12/18 03:00 Dose: 3 ml Amlodipine Besylate (Norvasc) 10 mg PO DAILY [facility] Last Admin: 08/13/18 10:00 Dose: Not Given Arformoterol Tartrate (Brovana) 15 mcg IH [id number] [facility] Last Admin: 08/13/18 21:00 Dose: 15 mcg Atenolol (Tenormin) 50 mg PO DAILY [facility] Last Admin: 08/13/18 10:00 Dose: Not Given Budesonide (Pulmicort Respules) 0.5 mg IH BIDRESP [facility] Last Admin: 08/13/18 21:00 Dose: 0.5 mg Clonazepam (Klonopin) 0.5 mg PO BID [facility]; Protocol Last Admin: 08/13/18 12:42 Dose: Not Given Diphenhydramine HCl (Benadryl) 25 mg IVP Q8H PRN PRN Reason: Allergy symptoms Ergocalciferol (Drisdol 50,000 Intl Units Cap) 1 cap PO SUN [facility] Last Admin: 08/12/18 09:24 Dose: 1 cap Fentanyl Citrate (Fentanyl Citrate/Sodium Chloride 1 Mg/100 Ml) 1,000 mcg in 100 mls @ 7.5 mls/hr IV .[id number] PRN; Protocol PRN Reason: TITRATE PER MD ORDER Last Admin: 08/13/18 23:44 Dose: 75 mcg/hr, 7.5 mls/hr Acetaminophen (Ofirmev) 1,000 mg in 100 mls @ 400 mls/hr IVPB Q8H PRN PRN Reason: fever>101.1 Stop: 08/15/18 12:07 Last Admin: 08/13/18 23:23 Dose: 400 mls/hr Propofol (Diprivan) 1,000 mg in 100 mls @ 1.591 mls/hr IV .Q24H PRN; Protocol PRN Reason: TITRATE PER MD ORDER Last Admin: 08/14/18 00:15 Dose: 50 mcg/kg/min, 15.908 mls/hr Doxycycline Hyclate 100 mg/ (Sodium Chloride) 100 mls @ 100 mls/hr IVPB Q12 [facility]; Protocol Stop: 08/20/18 13:31 Last Admin: 08/13/18 23:26 Dose: 100 mls/hr Piperacillin Sod/Tazobactam Sod (Zosyn 3.375 In Ns 100ml) 100 mls @ 25 mls/hr IVPB Q8 [facility]; Protocol Stop: 08/20/18 14:01 Last Admin: 08/14/18 00:23 Dose: 25 mls/hr Vancomycin HCl (Vancomycin 1gm) 1 gm in 250 mls @ 167 mls/hr IVPB 0330,1530 [facility]; Protocol Last Admin: 08/14/18 03:30 Dose: 167 mls/hr Sodium Chloride (Sodium Chloride 0.9%) 1,000 mls @ 100 mls/hr IV .Q10H [facility] Last Admin: 08/14/18 04:34 Dose: 100 mls/hr Potassium Chloride (Potassium Chloride 20 Meq/100 Ml) 20 meq in 100 mls @ 50 mls/hr IVPB Q2H [facility] Stop: 08/14/18 11:14 Ibuprofen (Motrin Tab) 400 mg PO Q6H PRN PRN Reason: Fever >100.4 F Loratadine (Claritin) 10 mg PO DAILY [facility] Last Admin: 08/13/18 10:00 Dose: Not Given Losartan Potassium (Cozaar) 50 mg PO QPM [facility] Last Admin: 08/13/18 18:14 Dose: Not Given Magnesium Oxide (Mag-Ox) 400 mg PO BID [facility] Last Admin: 08/13/18 18:00 Dose: Not Given Metoprolol Tartrate (Lopressor) 5 mg IVP ONCE PRN PRN Reason: HR above 130's Last Admin: 08/13/18 12:49 Dose: 5 mg Montelukast Sodium (Singulair) 10 mg PO DAILY [facility] Last Admin: 08/13/18 10:00 Dose: Not Given Mupirocin (Bactroban Ointment) 1 gm TOP BID [facility] Last Admin: 08/13/18 21:12 Dose: 1 unit Nicotine (Nicoderm Cq) 1 patch TD DAILY [facility] Last Admin: 08/12/18 09:26 Dose: Not Given Non-Formulary Medication (Vitamin B Complex [Super B-50 Complex]) 1 cap PO DAILY [facility] Last Admin: 08/13/18 10:00 Dose: Not Given Ondansetron HCl (Zofran Inj) 4 mg IVP Q6H PRN PRN Reason: Nausea/Vomiting Last Admin: 08/10/18 02:02 Dose: 4 mg Oxycodone HCl (Oxycodone Immediate Release Tab) 5 mg PO Q8H PRN PRN Reason: Pain, severe (8-10) Last Admin: 08/13/18 04:51 Dose: 5 mg Pantoprazole Sodium (Protonix Inj) 40 mg IVP DAILY [facility] Last Admin: 08/13/18 12:49 Dose: 40 mg Potassium Chloride (K-Dur 20 Meq Er Tab) 20 meq PO DAILY [facility] Last Admin: 08/13/18 14:00 Dose: 20 meq Sodium Chloride ([place] Nasal Nelson) 0 ml NS QID [facility] Last Admin: 08/13/18 23:40 Dose: Not Given Tiotropium [place] (Spiriva) 18 mcg INH DAILY [facility] Last Admin: 08/12/18 09:23 Dose: 18 mcg Tramadol HCl (Ultram) 50 mg PO TID PRN PRN Reason: Pain, moderate (4-7) Tranexamic Acid (Tranexamic Acid) 500 mg IH TIDRESP [facility] Last Admin: 08/13/18 21:00 Dose: 500 mg - Labs Labs: 08/14/18 05:40 08/14/18 05:40 PT 24.0 SECONDS (9.4-12.5) H 08/13/18 17:10 INR 2.16 08/13/18 17:10 APTT 30.6 Seconds (26.9-38.3) 08/13/18 17:10 - Constitutional Appears: Cachectic, Chronically Ill - Head Exam Head Exam: ATRAUMATIC, NORMAL INSPECTION - Eye Exam Eye Exam: EOMI, Scleral icterus - ENT Exam ENT Exam: Mucous Membranes Moist Additional comments: ETT/OGT in place - Neck Exam Neck Exam: Full ROM, Normal Inspection - Respiratory Exam Respiratory Exam: Crackles (bibasilar), Decreased breath sounds. absent: Respiratory Distress - Cardiovascular Exam Cardiovascular Exam: Tachycardia, +S1, +S2 - GI/Abdominal Exam GI & Abdominal Exam: Soft, Tenderness (diffuse mild), Normal Bowel Sounds. absent: Distended - Extremities Exam Extremities Exam: Full ROM, Normal Inspection - Neurological Exam Neurological Exam: Alert, Awake - Skin Skin Exam: Normal Color, Warm Assessment and Plan - Assessment and Plan (Free Text) Assessment: 53 year old female with a PMH of MDS (high grade, s/p chemotherapy), immunosuppression, lung cancer (s/p lobectomy, 2017), breast cancer s/p R breast mastectomy (2004), COPD, and endocarditis who is admitted for fevers. Patient complaining of mild abdominal pain. Labs and scans were reviewed. CT abd showing pancolitis, cdiff was negative for toxin x2. V/Q scan was done showing low probability for PE. Due to blood-tinged sputum and ensuing respiratory distress, patient was transferred to ICU, intubated and underwent BAL. She remains in ICU with sedation and on vent at this time. Tbili is noted to be elevated, but rest of liver enzymes are normal, likely due to sepsis. Plan: - Direct bilirubin ordered - will order LDH, Haptoglobin and retic count to r/o hemolysis - will order peripheral smear - Abx per ID - would recommend Vanc PO for c.diff empiric treatment - NPO - PPI for GI ppx in ICU pt - monitor H/H; transfusing per Heme/Onc - Palliative care is following the case - further recs per Dr. Dela Cruz Case was reviewed and discussed with Dr. Dela Cruz <Efrem Dela Cruz V - Last Filed: 08/14/18 23:06> Objective - Vital Signs/Intake and Output Vital Signs (last 24 hours): Temp Pulse Resp BP Pulse Ox 98.8 F 140 H 24 129/50 L 84 L 08/14/18 18:30 08/14/18 20:38 08/13/18 14:00 08/14/18 20:38 08/14/18 18:30 Intake and Output: 08/14/18 08/15/18 18:59 06:59 Intake Total 1690 Output Total 500 Balance 1190 - Medications Medications: Current Medications Albuterol/Ipratropium (Duoneb 3 Mg/0.5 Mg (3 Ml) Ud) 3 ml IH [id number] PRN PRN Reason: Shortness of Breath Last Admin: 08/12/18 03:00 Dose: 3 ml Amlodipine Besylate (Norvasc) 10 mg PO DAILY [facility] Last Admin: 08/13/18 10:00 Dose: Not Given Atenolol (Tenormin) 50 mg PO DAILY [facility] Last Admin: 08/14/18 10:58 Dose: Not Given Budesonide (Pulmicort Respules) 0.5 mg IH BIDRESP [facility] Last Admin: 08/14/18 19:42 Dose: 0.5 mg Clonazepam (Klonopin) 0.5 mg PO BID [facility]; Protocol Last Admin: 08/13/18 12:42 Dose: Not Given Diphenhydramine HCl (Benadryl) 25 mg IVP Q8H PRN PRN Reason: Allergy symptoms Ergocalciferol (Drisdol 50,000 Intl Units Cap) 1 cap PO SUN [facility] Last Admin: 08/12/18 09:24 Dose: 1 cap Fentanyl Citrate (Fentanyl Citrate/Sodium Chloride 1 Mg/100 Ml) 1,000 mcg in 100 mls @ 7.5 mls/hr IV .[id number] PRN; Protocol PRN Reason: TITRATE PER MD ORDER Last Admin: 08/14/18 13:55 Dose: 75 mcg/hr, 7.5 mls/hr Acetaminophen (Ofirmev) 1,000 mg in 100 mls @ 400 mls/hr IVPB Q8H PRN PRN Reason: fever>101.1 Stop: 08/15/18 12:07 Last Admin: 08/14/18 10:56 Dose: 400 mls/hr Propofol (Diprivan) 1,000 mg in 100 mls @ 1.591 mls/hr IV .Q24H PRN; Protocol PRN Reason: TITRATE PER MD ORDER Last Admin: 08/14/18 00:15 Dose: 50 mcg/kg/min, 15.908 mls/hr Doxycycline Hyclate 100 mg/ (Sodium Chloride) 100 mls @ 100 mls/hr IVPB Q12 [facility]; Protocol Stop: 08/20/18 13:31 Last Admin: 08/14/18 21:59 Dose: 100 mls/hr Piperacillin Sod/Tazobactam Sod (Zosyn 3.375 In Ns 100ml) 100 mls @ 25 mls/hr IVPB Q8 [facility]; Protocol Stop: 08/20/18 14:01 Last Admin: 08/14/18 22:00 Dose: 25 mls/hr Vancomycin HCl (Vancomycin 1gm) 1 gm in 250 mls @ 167 mls/hr IVPB 0330,1530 [facility]; Protocol Last Admin: 08/14/18 15:55 Dose: 167 mls/hr Sodium Chloride (Sodium Chloride 0.9%) 1,000 mls @ 100 mls/hr IV .Q10H [facility] Last Admin: 08/14/18 04:34 Dose: 100 mls/hr NOREPINEPHRINE BIT/0.9 % NACL (Levophed 4 Mg/ 250 Ml Ns Premixed) 4 mg in 250 mls @ 15 mls/hr IV .[id number] PRN; Protocol PRN Reason: TITRATE PER MD ORDER Last Admin: 08/14/18 07:30 Dose: 4 mcg/min, 15 mls/hr Potassium Chloride 20 meq/ (Sodium Chloride) 1,010 mls @ 100 mls/hr IV .[id number] [facility] Methylprednisolone 250 mg/ (Sodium Chloride) 100 mls @ 200 mls/hr IVPB Q8H [facility] Stop: 08/15/18 08:59 Last Admin: 08/14/18 21:55 Dose: 200 mls/hr Ibuprofen (Motrin Tab) 400 mg PO Q6H PRN PRN Reason: Fever >100.4 F Ipratropium [place] (Atrovent) 0.5 mg IH TIDRESP [facility] Last Admin: 08/14/18 19:42 Dose: 0.5 mg Levalbuterol HCl (Xopenex) 0.63 mg IH TIDRESP [facility] Last Admin: 08/14/18 19:43 Dose: 0.63 mg Loratadine (Claritin) 10 mg PO DAILY [facility] Last Admin: 08/13/18 10:00 Dose: Not Given Losartan Potassium (Cozaar) 50 mg PO QPM [facility] Last Admin: 08/13/18 18:14 Dose: Not Given Magnesium Oxide (Mag-Ox) 400 mg PO BID [facility] Last Admin: 08/14/18 18:46 Dose: 400 mg Metoprolol Tartrate (Lopressor) 5 mg IVP Q6H PRN PRN Reason: HR above 130's Last Admin: 08/14/18 20:38 Dose: 5 mg Montelukast Sodium (Singulair) 10 mg PO DAILY [facility] Last Admin: 08/14/18 10:58 Dose: Not Given Mupirocin (Bactroban Ointment) 1 gm TOP BID [facility] Last Admin: 08/14/18 18:43 Dose: 1 unit Nicotine (Nicoderm Cq) 1 patch TD DAILY [facility] Last Admin: 08/12/18 09:26 Dose: Not Given Non-Formulary Medication (Vitamin B Complex [Super B-50 Complex]) 1 cap PO DAILY [facility] Last Admin: 08/14/18 10:59 Dose: Not Given Ondansetron HCl (Zofran Inj) 4 mg IVP Q6H PRN PRN Reason: Nausea/Vomiting Last Admin: 08/10/18 02:02 Dose: 4 mg Oxycodone HCl (Oxycodone Immediate Release Tab) 5 mg PO Q8H PRN PRN Reason: Pain, severe (8-10) Last Admin: 08/13/18 04:51 Dose: 5 mg Pantoprazole Sodium (Protonix Inj) 40 mg IVP DAILY [facility] Last Admin: 08/14/18 10:57 Dose: 40 mg Potassium Chloride (K-Dur 20 Meq Er Tab) 20 meq PO DAILY [facility] Last Admin: 08/14/18 10:55 Dose: 20 meq Sodium Chloride ([place] Nasal Nelson) 0 ml NS QID [facility] Last Admin: 08/14/18 21:46 Dose: Not Given Tramadol HCl (Ultram) 50 mg PO TID PRN PRN Reason: Pain, moderate (4-7) Tranexamic Acid (Tranexamic Acid) 500 mg IH TIDRESP [facility] Last Admin: 08/14/18 21:29 Dose: 500 mg - Labs Labs: 08/14/18 17:00 08/14/18 17:00 PT 23.1 SECONDS (9.4-12.5) H 08/14/18 17:00 INR 2.08 08/14/18 17:00 APTT 30.6 Seconds (26.9-38.3) 08/13/18 17:10 Attending/Attestation - Attestation I have personally seen and examined this patient.: Yes I have fully participated in the care of the patient.: Yes I have reviewed all pertinent clinical information, including history, physical exam and plan: Yes Notes (Text): This is an addendum to the GI progress report dictated by the medical reviewer. The patient was seen and evaluated along with the resident. Discussed with ICU team. Elevated LFTs probably multifactorial etiology. It is a combination probably of hepatic congestion, drug-induced liver injury, sepsis. Previous sonogram and imaging studies reviewed. Sepsis continue the antibiotics as per ID pancolitis C. difficile negative on IV Vanco Respiratory failure bronchoscopy findings noted This patient has advanced myelodysplastic syndrome upper extremity DVT history of lung cancer, history of breast cancer, pulmonary hypertension history of sickle cell. This patient is critically ill with overall prognosis is guarded Palliative consult note reviewed 08/14/18 23:05
[2018-08-14] MEDS: Budesonide 0.5 mg/2 ml Inhal Susp UD IH SCH ×2 (07:48→19:42)
[2018-08-14] MEDS: Arformoterol 15 mcg/2 ml Inh Sol IH SCH (07:48)
--- NOTE | 2018-08-14 08:04 | OP ---
PROCEDURE DATE: 08/13/2018 PROCEDURE: Flexible bronchoscopy with bronchoalveolar lavage. DESCRIPTION OF PROCEDURE: The patient is sedated with propofol and fentanyl. She received one dose of nimbex for improved patient ventilator synchrony prior to bronchoscopy. Bronchoscope was introduced to trachea via endotracheal tube. Endotracheal tube is about 2 cm above emily. Substantial areas of hemorrhages in both right and left main bronchi seen. Mucosa is fragile. Some sanguinous secretion identified. Bronchoscope was advanced to right bronchial tree. It was examined up to first subsegmental level. Again mucosal hemorrhages area observed. Bronchoscope was wedged in anterior basal segment of the right lower lobe. Bronchoalveolar lavage 100 mL of normal saline was performed. Increasingly hemorrhagic output was noted. After bronchoalveolar lavage completed, bronchoscope was removed from bronchial tree. Left bronchial tree was not examined as the patient started to drop oxygen saturation level, which however restored right after bronchoscope was removed. No significant hemorrhage noted on the way up. The patient tolerated the procedure well. Vital signs were monitored throughout the procedure. Lawrence Lema MD JONAH
--- NOTE | 2018-08-14 08:06 | PROCN ---
DATE: 08/13/2018 PROCEDURE: Endotracheal intubation, emergent. The patient was preoxygenated with 100% FiO2 via Ambu bag. Blood pressure was cycled to every 1 minute, and the rest of vital signs were monitored continuously. Sedation provided with 50 mcg of propofol. A 1 liter bolus of normal saline was given in preprocedural period to optimize right ventricular function. Direct laryngoscopy was performed with curved blade MAC 3. Vocal cords visualized. Trachea cannulated with 7.5-Sami endotracheal tube. Stylet was removed. Cuff inflated. Position confirmed with gastric and bilateral lung auscultation as well as changing in the color of end-tidal CO2 gauge. Subsequent confirmation was also obtained by chest x-ray. The patient tolerated the procedure well. No immediate complication. Lawrence Lema MD JONAH
[2018-08-14] MEDS: Tranexamic Acid 100 mg/ml IH SCH ×3 (08:44→21:29)
--- NOTE | 2018-08-14 09:09 | CP.CCUPN ---
<Rolando Tran - Last Filed: 08/14/18 13:18> CCU Subjective - Physician Review Events Since Last Encounter (Free Text): 08/14/18 09:05 bronch performed yesterday, pt intubated, central line placed Subjective (Free Text): 08/14/18 09:06 Pt seen and examined this morning in the ICU, pt intubated and sedated, NAD CCU Objective - Vital Signs / Intake & Output Intake and Output (Last 8hrs): Intake & Output 08/13/18 08/14/18 08/14/18 22:59 06:59 14:59 Intake Total 2494 1969 Output Total 1850 800 Balance 644 1170 Intake: IV 2493 1969 Right Femoral 2450 1770 Output: Urine 1850 800 2-way Urethral 1850 800 Other: # Bowel Movements 1 - Physical Exam Head: Positive for: Atraumatic, Normocephalic Pupils: Positive for: PERRL Extroacular Muscles: Positive for: EOMI Conjunctiva: Positive for: Normal Neck: Positive for: Normal Range of Motion Respiratory/Chest: Positive for: Clear to Auscultation, Good Air Exchange, Other (intubated ). Negative for: Respiratory Distress, Accessory Muscle Use Cardiovascular: Positive for: Normal S1, S2, Tachycardic. Negative for: Murmurs Abdomen: Negative for: Peritoneal Signs Upper Extremity: Positive for: Normal Inspection. Negative for: Cyanosis, Edema Lower Extremity: Positive for: Normal Inspection. Negative for: Edema Skin: Positive for: Warm, Dry, Normal Color. Negative for: Rashes Psychiatric: Positive for: Other (sedated) - Medications Active Medications: Active Medications Generic Name Dose Route Start Last Admin Trade Name Freq PRN Reason Stop Dose Admin Albuterol/Ipratropium 3 ml 08/08/18 14:07 08/12/18 03:00 Duoneb 3 Mg/0.5 Mg (3 Ml) Ud IH 3 ml [id number] PRN Administration Shortness of Breath Amlodipine Besylate 10 mg 08/08/18 10:00 08/13/18 10:00 Norvasc PO Not Given DAILY [facility] Arformoterol Tartrate 15 mcg 08/07/18 20:00 08/14/18 07:48 Brovana IH 15 mcg [id number] KAYLEIGH Administration Atenolol 50 mg 08/13/18 10:00 08/13/18 10:00 Tenormin PO Not Given DAILY [facility] Budesonide 0.5 mg 08/07/18 20:00 08/14/18 07:48 Pulmicort Respules IH 0.5 mg BIDRESP KAYLEIGH Administration Clonazepam 0.5 mg 08/07/18 18:00 08/13/18 12:42 Klonopin PO Not Given BID [facility] Protocol Diphenhydramine HCl 25 mg 08/12/18 13:50 Benadryl IVP Q8H PRN Allergy symptoms Ergocalciferol 1 cap 08/12/18 10:00 08/12/18 09:24 Drisdol 50,000 Intl Units Cap PO 1 cap SUN KAYLEIGH Administration Fentanyl Citrate 1,000 mcg in 100 mls @ 7.5 mls/hr 08/13/18 11:35 08/13/18 23:44 Fentanyl Citrate/Sodium Chloride 1 Mg/100 Ml IV 75 mcg/hr .[id number] PRN 7.5 mls/hr TITRATE PER MD ORDER Administration Protocol 75 MCG/HR Acetaminophen 1,000 mg in 100 mls @ 400 mls/hr 08/13/18 12:06 08/13/18 23:23 Ofirmev IVPB 08/15/18 12:07 400 mls/hr Q8H PRN Administration fever>101.1 Propofol 1,000 mg in 100 mls @ 1.591 mls/hr 08/13/18 12:48 08/14/18 00:15 Diprivan IV 50 mcg/kg/min .Q24H PRN 15.908 mls/hr TITRATE PER MD ORDER Administration Protocol 5 MCG/KG/MIN Doxycycline Hyclate 100 mg/ 100 mls @ 100 mls/hr 08/13/18 13:30 08/13/18 23:26 Sodium Chloride IVPB 08/20/18 13:31 100 mls/hr Q12 K[facility]IGH Administration Protocol Piperacillin Sod/Tazobactam Sod 100 mls @ 25 mls/hr 08/13/18 14:00 08/14/18 06:50 Zosyn 3.375 In Ns 100ml IVPB 08/20/18 14:01 25 mls/hr Q8 K[facility] Administration Protocol Vancomycin HCl 1 gm in 250 mls @ 167 mls/hr 08/13/18 14:44 04/02/19 03:30 Vancomycin 1gm IVPB 167 mls/hr 0330,1530 K[facility]LEIGH Administration Protocol Sodium Chloride 1,000 mls @ 100 mls/hr 08/13/18 19:00 08/14/18 04:34 Sodium Chloride 0.9% IV 100 mls/hr .Q10H [facility] Administration Potassium Chloride 20 meq in 100 mls @ 50 mls/hr 08/14/18 07:15 08/14/18 08:21 Potassium Chloride 20 Meq/100 Ml IVPB 08/14/18 11:14 50 mls/hr Q2H [facility] Administration Ibuprofen 400 mg 08/13/18 07:45 Motrin Tab PO Q6H PRN Fever >100.4 F Loratadine 10 mg 08/08/18 10:00 08/13/18 10:00 Claritin PO Not Given DAILY [facility] Losartan Potassium 50 mg 08/07/18 18:00 08/13/18 18:14 Cozaar PO Not Given QPM [facility] Magnesium Oxide 400 mg 08/07/18 18:00 08/13/18 18:00 Mag-Ox PO Not Given BID [facility] Metoprolol Tartrate 5 mg 08/13/18 09:01 08/13/18 12:49 Lopressor IVP 5 mg ONCE PRN Administration HR above 130's Montelukast Sodium 10 mg 08/08/18 10:00 08/13/18 10:00 Singulair PO Not Given DAILY [facility] Mupirocin 1 gm 08/13/18 20:30 08/13/18 21:12 Bactroban Ointment TOP 1 unit BID [facility] Administration Nicotine 1 patch 08/07/18 16:45 08/12/18 09:26 Nicoderm Cq TD Not Given DAILY [facility] Non-Formulary Medication 1 cap 08/08/18 10:00 08/13/18 10:00 Vitamin B Complex [Super B-50 Complex] PO Not Given DAILY [facility] Ondansetron HCl 4 mg 08/08/18 13:17 08/10/18 02:02 Zofran Inj IVP 4 mg Q6H PRN Administration Nausea/Vomiting Oxycodone HCl 5 mg 08/11/18 13:24 08/13/18 04:51 Oxycodone Immediate Release Tab PO 5 mg Q8H PRN Administration Pain, severe (8-10) Pantoprazole Sodium 40 mg 08/13/18 10:00 08/13/18 12:49 Protonix Inj IVP 40 mg DAILY [facility] Administration Potassium Chloride 20 meq 08/08/18 10:00 08/13/18 14:00 K-Dur 20 Meq Er Tab PO 20 meq DAILY [facility] Administration Sodium Chloride 0 ml 08/07/18 18:00 08/13/18 23:40 Sanford Nasal [place] NS Not Given QID [facility] Tiotropium [place] 18 mcg 08/08/18 10:00 08/12/18 09:23 Spiriva INH 18 mcg DAILY [facility] Administration Tramadol HCl 50 mg 08/11/18 13:22 Ultram PO TID PRN Pain, moderate (4-7) Tranexamic Acid 500 mg 08/13/18 14:00 08/14/18 08:44 Tranexamic Acid IH 100 mg TIDRESP K[facility]LE[facility] Administration - Patient Studies Lab Studies: Microbiology Studies 08/11/18 20:45 Blood Culture - Preliminary Blood NO GROWTH AFTER 48 HOURS 08/11/18 20:25 Blood Culture - Preliminary Blood NO GROWTH AFTER 48 HOURS 08/11/18 21:00 MRSA Culture (Admit) - Final Naris MRSA DETECTED 08/13/18 11:00 Gram Stain - Final Trachasp Lab Studies 08/14/18 08/14/18 08/14/18 Range/Units 05:45 05:40 05:40 WBC (4.5-11.0) 10^3/uL RBC (3.5-6.1) 10^6/uL Hgb (12.0-16.0) g/dL Hct (36.0-48.0) % MCV (80.0-105.0) fl MCH (25.0-35.0) pg MCHC (31.0-37.0) g/dl RDW (11.5-14.5) % Plt Count (120.0-450.0) 10^3/uL Manual Plt Count (120-450) K/mm3 MPV (7.0-11.0) fl Neut % (Auto) (50.0-68.0) % Lymph % (Auto) (22.0-35.0) % [place] % (Auto) (1.0-6.0) % Eos % (Auto) (1.5-5.0) % Baso % (Auto) (0.0-3.0) % Lymph # (Auto) (1.2-3.4) [place] # (Auto) (0.1-0.6) Eos # (Auto) (0.0-0.7) Baso # (Auto) (0.0-2.0) K/mm3 Absolute Neuts (auto) (1.4-6.5) Neutrophils % (Manual) (50.0-70.0) % Lymphocytes % (Manual) (22.0-35.0) % Atypical Lymphs % (0.0-0.0) % Monocytes % (Manual) (1.0-6.0) % Eosinophils % (Manual) (0.0-3.0) % Platelet Evaluation (NORMAL) PT (9.4-12.5) SECONDS INR APTT (26.9-38.3) Seconds Fibrinogen (200-400) mg/dl Fibrin Degrad Products (< 10 ug/mL) pCO2 45 (35-45) mm/Hg pO2 52.0 L (80-100) mm/Hg HCO3 20.7 L (21-28) mmol/L ABG pH 7.27 L (7.35-7.45) ABG Total CO2 22.1 (22-28) mmol.L ABG O2 Saturation 92.1 L (95-98) % ABG O2 Content 9.0 L (15-23) ML/dl ABG Base Excess -5.8 L (-2.0-3.0) mmol/L ABG Hemoglobin 7.2 L (11.7-17.4) g/dL ABG Carboxyhemoglobin 3.1 H (0.5-1.5) % POC ABG HHb (Measured) 7.6 H (0-5) % ABG Methemoglobin 1.1 (0.0-3.0) % ABG O2 Capacity 9.8 L (16-24) mL/dl Hgb O2 Saturation 88.3 L (95.0-98.0) % FiO2 60.0 % Sodium 147 (132-148) mmol/L Potassium 2.7 L* (3.6-5.0) mmol/L Chloride 115 H (98-107) mmol/L Carbon Dioxide 23 (21-33) mmol/L Anion Gap 12 (10-20) BUN 21 (7-21) mg/dL Creatinine 0.7 (0.7-1.2) mg/dl Est GFR ( Amer) > 60 Est GFR (Non-Af Amer) > 60 Random Glucose 82 (70-110) mg/dL Calcium 7.7 L (8.4-10.5) mg/dL Phosphorus 4.6 H (2.5-4.5) mg/dL Magnesium 2.0 (1.7-2.2) mg/dL Total Bilirubin 5.7 H (0.2-1.3) mg/dL Direct Bilirubin 4.9 H (0.0-0.4) mg/dL AST 26 (14-36) U/L ALT 25 (7-56) U/L Alkaline Phosphatase 74 (38-126) U/L Lactate Dehydrogenase (333-699) U/L NT-Pro-B Natriuret Pep (0-450) pg/mL Total Protein 5.0 L (5.8-8.3) g/dL Albumin 2.1 L (3.0-4.8) g/dL Globulin 3.0 gm/dL Albumin/Globulin Ratio 0.7 L (1.1-1.8) Procalcitonin (0.19-0.49) NG/ML 08/14/18 08/13/18 08/13/18 Range/Units 05:40 21:10 17:45 WBC 4.0 L (4.5-11.0) 10^3/uL RBC 2.57 L (3.5-6.1) 10^6/uL Hgb 7.6 L (12.0-16.0) g/dL Hct 22.7 L (36.0-48.0) % MCV 88.3 (80.0-105.0) fl MCH 29.6 (25.0-35.0) pg MCHC 33.5 (31.0-37.0) g/dl RDW 16.3 H (11.5-14.5) % Plt Count 23 L* (120.0-450.0) 10^3/uL Manual Plt Count 26 L* (120-450) K/mm3 MPV 10.0 (7.0-11.0) fl Neut % (Auto) 39.7 L (50.0-68.0) % Lymph % (Auto) 16.0 L (22.0-35.0) % [place] % (Auto) 43.8 H (1.0-6.0) % Eos % (Auto) 0.0 L (1.5-5.0) % Baso % (Auto) 0.5 (0.0-3.0) % Lymph # (Auto) 0.6 L (1.2-3.4) [place] # (Auto) 1.8 H (0.1-0.6) Eos # (Auto) 0.0 (0.0-0.7) Baso # (Auto) 0.02 (0.0-2.0) K/mm3 Absolute Neuts (auto) 1.59 (1.4-6.5) Neutrophils % (Manual) (50.0-70.0) % Lymphocytes % (Manual) (22.0-35.0) % Atypical Lymphs % (0.0-0.0) % Monocytes % (Manual) (1.0-6.0) % Eosinophils % (Manual) (0.0-3.0) % Platelet Evaluation Low (NORMAL) PT (9.4-12.5) SECONDS INR APTT (26.9-38.3) Seconds Fibrinogen (200-400) mg/dl Fibrin Degrad Products (< 10 ug/mL) pCO2 51 H (35-45) mm/Hg pO2 82.0 (80-100) mm/Hg HCO3 21.4 (21-28) mmol/L ABG pH 7.23 L (7.35-7.45) ABG Total CO2 23.0 (22-28) mmol.L ABG O2 Saturation 98.0 (95-98) % ABG O2 Content 13.5 L (15-23) ML/dl ABG Base Excess -6.2 L (-2.0-3.0) mmol/L ABG Hemoglobin 10.1 L (11.7-17.4) g/dL ABG Carboxyhemoglobin 2.6 H (0.5-1.5) % POC ABG HHb (Measured) 1.9 (0-5) % ABG Methemoglobin 0.9 (0.0-3.0) % ABG O2 Capacity 13.8 L (16-24) mL/dl Hgb O2 Saturation 94.5 L (95.0-98.0) % FiO2 60.0 % Sodium 146 (132-148) mmol/L Potassium 3.0 L (3.6-5.0) mmol/L Chloride 112 H (98-107) mmol/L Carbon Dioxide 23 (21-33) mmol/L Anion Gap 13 (10-20) BUN 19 (7-21) mg/dL Creatinine 0.8 (0.7-1.2) mg/dl Est GFR ( Amer) > 60 Est GFR (Non-Af Amer) > 60 Random Glucose 86 (70-110) mg/dL Calcium 7.8 L (8.4-10.5) mg/dL Phosphorus (2.5-4.5) mg/dL Magnesium (1.7-2.2) mg/dL Total Bilirubin (0.2-1.3) mg/dL Direct Bilirubin (0.0-0.4) mg/dL AST (14-36) U/L ALT (7-56) U/L Alkaline Phosphatase (38-126) U/L Lactate Dehydrogenase (333-699) U/L NT-Pro-B Natriuret Pep (0-450) pg/mL Total Protein (5.8-8.3) g/dL Albumin (3.0-4.8) g/dL Globulin gm/dL Albumin/Globulin Ratio (1.1-1.8) Procalcitonin (0.19-0.49) NG/ML 08/13/18 08/13/18 08/13/18 Range/Units 17:10 17:10 17:10 WBC 4.0 L D (4.5-11.0) 10^3/uL RBC 2.69 L (3.5-6.1) 10^6/uL Hgb 7.9 L (12.0-16.0) g/dL Hct 23.8 L (36.0-48.0) % MCV 88.5 (80.0-105.0) fl MCH 29.4 (25.0-35.0) pg MCHC 33.2 (31.0-37.0) g/dl RDW 16.1 H (11.5-14.5) % Plt Count 34 L* (120.0-450.0) 10^3/uL Manual Plt Count (120-450) K/mm3 MPV 8.1 (7.0-11.0) fl Neut % (Auto) (50.0-68.0) % Lymph % (Auto) (22.0-35.0) % [place] % (Auto) 25.7 H (1.0-6.0) % Eos % (Auto) 0.0 L (1.5-5.0) % Baso % (Auto) 1.2 (0.0-3.0) % Lymph # (Auto) (1.2-3.4) [place] # (Auto) 1.0 H (0.1-0.6) Eos # (Auto) 0.0 (0.0-0.7) Baso # (Auto) 0.05 (0.0-2.0) K/mm3 Absolute Neuts (auto) (1.4-6.5) Neutrophils % (Manual) 19 L (50.0-70.0) % Lymphocytes % (Manual) 25 (22.0-35.0) % Atypical Lymphs % 7 H (0.0-0.0) % Monocytes % (Manual) 36 H (1.0-6.0) % Eosinophils % (Manual) 13 H (0.0-3.0) % Platelet Evaluation Low (NORMAL) PT 24.0 H (9.4-12.5) SECONDS INR 2.16 APTT 30.6 (26.9-38.3) Seconds Fibrinogen 689 H* (200-400) mg/dl Fibrin Degrad Products >40 ug/ml (< 10 ug/mL) pCO2 (35-45) mm/Hg pO2 (80-100) mm/Hg HCO3 (21-28) mmol/L ABG pH (7.35-7.45) ABG Total CO2 (22-28) mmol.L ABG O2 Saturation (95-98) % ABG O2 Content (15-23) ML/dl ABG Base Excess (-2.0-3.0) mmol/L ABG Hemoglobin (11.7-17.4) g/dL ABG Carboxyhemoglobin (0.5-1.5) % POC ABG HHb (Measured) (0-5) % ABG Methemoglobin (0.0-3.0) % ABG O2 Capacity (16-24) mL/dl Hgb O2 Saturation (95.0-98.0) % FiO2 % Sodium (132-148) mmol/L Potassium (3.6-5.0) mmol/L Chloride (98-107) mmol/L Carbon Dioxide (21-33) mmol/L Anion Gap (10-20) BUN (7-21) mg/dL Creatinine (0.7-1.2) mg/dl Est GFR ( Amer) Est GFR (Non-Af Amer) Random Glucose (70-110) mg/dL Calcium (8.4-10.5) mg/dL Phosphorus (2.5-4.5) mg/dL Magnesium (1.7-2.2) mg/dL Total Bilirubin (0.2-1.3) mg/dL Direct Bilirubin (0.0-0.4) mg/dL AST (14-36) U/L ALT (7-56) U/L Alkaline Phosphatase (38-126) U/L Lactate Dehydrogenase (333-699) U/L NT-Pro-B Natriuret Pep (0-450) pg/mL Total Protein (5.8-8.3) g/dL Albumin (3.0-4.8) g/dL Globulin gm/dL Albumin/Globulin Ratio (1.1-1.8) Procalcitonin (0.19-0.49) NG/ML 08/13/18 08/13/18 08/13/18 Range/Units 13:15 13:15 13:15 WBC 3.2 L D (4.5-11.0) 10^3/uL RBC 2.67 L (3.5-6.1) 10^6/uL Hgb 7.8 L (12.0-16.0) g/dL Hct 23.4 L (36.0-48.0) % MCV 87.6 (80.0-105.0) fl MCH 29.2 (25.0-35.0) pg MCHC 33.3 (31.0-37.0) g/dl RDW 15.9 H (11.5-14.5) % Plt Count 44 L* (120.0-450.0) 10^3/uL Manual Plt Count (120-450) K/mm3 MPV 8.2 (7.0-11.0) fl Neut % (Auto) 38.4 L (50.0-68.0) % Lymph % (Auto) 21.2 L (22.0-35.0) % [place] % (Auto) 39.2 H (1.0-6.0) % Eos % (Auto) 0.3 L (1.5-5.0) % Baso % (Auto) 0.9 (0.0-3.0) % Lymph # (Auto) 0.7 L (1.2-3.4) [place] # (Auto) 1.2 H (0.1-0.6) Eos # (Auto) 0.0 (0.0-0.7) Baso # (Auto) 0.03 (0.0-2.0) K/mm3 Absolute Neuts (auto) 1.21 L (1.4-6.5) Neutrophils % (Manual) (50.0-70.0) % Lymphocytes % (Manual) (22.0-35.0) % Atypical Lymphs % (0.0-0.0) % Monocytes % (Manual) (1.0-6.0) % Eosinophils % (Manual) (0.0-3.0) % Platelet Evaluation (NORMAL) PT (9.4-12.5) SECONDS INR APTT (26.9-38.3) Seconds Fibrinogen (200-400) mg/dl Fibrin Degrad Products (< 10 ug/mL) pCO2 (35-45) mm/Hg pO2 (80-100) mm/Hg HCO3 (21-28) mmol/L ABG pH (7.35-7.45) ABG Total CO2 (22-28) mmol.L ABG O2 Saturation (95-98) % ABG O2 Content (15-23) ML/dl ABG Base Excess (-2.0-3.0) mmol/L ABG Hemoglobin (11.7-17.4) g/dL ABG Carboxyhemoglobin (0.5-1.5) % POC ABG HHb (Measured) (0-5) % ABG Methemoglobin (0.0-3.0) % ABG O2 Capacity (16-24) mL/dl Hgb O2 Saturation (95.0-98.0) % FiO2 % Sodium (132-148) mmol/L Potassium (3.6-5.0) mmol/L Chloride (98-107) mmol/L Carbon Dioxide (21-33) mmol/L Anion Gap (10-20) BUN (7-21) mg/dL Creatinine (0.7-1.2) mg/dl Est GFR ( Amer) Est GFR (Non-Af Amer) Random Glucose (70-110) mg/dL Calcium (8.4-10.5) mg/dL Phosphorus (2.5-4.5) mg/dL Magnesium (1.7-2.2) mg/dL Total Bilirubin (0.2-1.3) mg/dL Direct Bilirubin (0.0-0.4) mg/dL AST (14-36) U/L ALT (7-56) U/L Alkaline Phosphatase (38-126) U/L Lactate Dehydrogenase (333-699) U/L NT-Pro-B Natriuret Pep 08546 H (0-450) pg/mL Total Protein (5.8-8.3) g/dL Albumin (3.0-4.8) g/dL Globulin gm/dL Albumin/Globulin Ratio (1.1-1.8) Procalcitonin 43.21 H (0.19-0.49) NG/ML 08/13/18 Range/Units 13:15 WBC (4.5-11.0) 10^3/uL RBC (3.5-6.1) 10^6/uL Hgb (12.0-16.0) g/dL Hct (36.0-48.0) % MCV (80.0-105.0) fl MCH (25.0-35.0) pg MCHC (31.0-37.0) g/dl RDW (11.5-14.5) % Plt Count (120.0-450.0) 10^3/uL Manual Plt Count (120-450) K/mm3 MPV (7.0-11.0) fl Neut % (Auto) (50.0-68.0) % Lymph % (Auto) (22.0-35.0) % [place] % (Auto) (1.0-6.0) % Eos % (Auto) (1.5-5.0) % Baso % (Auto) (0.0-3.0) % Lymph # (Auto) (1.2-3.4) [place] # (Auto) (0.1-0.6) Eos # (Auto) (0.0-0.7) Baso # (Auto) (0.0-2.0) K/mm3 Absolute Neuts (auto) (1.4-6.5) Neutrophils % (Manual) (50.0-70.0) % Lymphocytes % (Manual) (22.0-35.0) % Atypical Lymphs % (0.0-0.0) % Monocytes % (Manual) (1.0-6.0) % Eosinophils % (Manual) (0.0-3.0) % Platelet Evaluation (NORMAL) PT (9.4-12.5) SECONDS INR APTT (26.9-38.3) Seconds Fibrinogen (200-400) mg/dl Fibrin Degrad Products (< 10 ug/mL) pCO2 (35-45) mm/Hg pO2 (80-100) mm/Hg HCO3 (21-28) mmol/L ABG pH (7.35-7.45) ABG Total CO2 (22-28) mmol.L ABG O2 Saturation (95-98) % ABG O2 Content (15-23) ML/dl ABG Base Excess (-2.0-3.0) mmol/L ABG Hemoglobin (11.7-17.4) g/dL ABG Carboxyhemoglobin (0.5-1.5) % POC ABG HHb (Measured) (0-5) % ABG Methemoglobin (0.0-3.0) % ABG O2 Capacity (16-24) mL/dl Hgb O2 Saturation (95.0-98.0) % FiO2 % Sodium 144 (132-148) mmol/L Potassium 2.5 L* D (3.6-5.0) mmol/L Chloride 110 H (98-107) mmol/L Carbon Dioxide 26 (21-33) mmol/L Anion Gap 10 (10-20) BUN 18 (7-21) mg/dL Creatinine 0.7 (0.7-1.2) mg/dl Est GFR ( Amer) > 60 Est GFR (Non-Af Amer) > 60 Random Glucose 70 (70-110) mg/dL Calcium 8.3 L (8.4-10.5) mg/dL Phosphorus 4.9 H (2.5-4.5) mg/dL Magnesium 1.5 L (1.7-2.2) mg/dL Total Bilirubin 7.9 H (0.2-1.3) mg/dL Direct Bilirubin (0.0-0.4) mg/dL AST 29 (14-36) U/L ALT 32 (7-56) U/L Alkaline Phosphatase 90 (38-126) U/L Lactate Dehydrogenase 612 (333-699) U/L NT-Pro-B Natriuret Pep (0-450) pg/mL Total Protein 5.8 (5.8-8.3) g/dL Albumin 2.5 L (3.0-4.8) g/dL Globulin 3.3 gm/dL Albumin/Globulin Ratio 0.8 L (1.1-1.8) Procalcitonin (0.19-0.49) NG/ML Laboratory Results - last 24 hr 08/13/18 08/13/18 08/13/18 13:15 13:15 13:15 WBC 3.2 L D RBC 2.67 L Hgb 7.8 L Hct 23.4 L MCV 87.6 MCH 29.2 MCHC 33.3 RDW 15.9 H Plt Count 44 L* Manual Plt Count MPV 8.2 Neut % (Auto) 38.4 L Lymph % (Auto) 21.2 L [place] % (Auto) 39.2 H Eos % (Auto) 0.3 L Baso % (Auto) 0.9 Lymph # (Auto) 0.7 L [place] # (Auto) 1.2 H Eos # (Auto) 0.0 Baso # (Auto) 0.03 Absolute Neuts (auto) 1.21 L Neutrophils % (Manual) Lymphocytes % (Manual) Atypical Lymphs % Monocytes % (Manual) Eosinophils % (Manual) Platelet Evaluation PT INR APTT Fibrinogen Fibrin Degrad Products pCO2 pO2 HCO3 ABG pH ABG Total CO2 ABG O2 Saturation ABG O2 Content ABG Base Excess ABG Hemoglobin ABG Carboxyhemoglobin POC ABG HHb (Measured) ABG Methemoglobin ABG O2 Capacity Hgb O2 Saturation FiO2 Sodium 144 Potassium 2.5 L* D Chloride 110 H Carbon Dioxide 26 Anion Gap 10 BUN 18 Creatinine 0.7 Est GFR ( Amer) > 60 Est GFR (Non-Af Amer) > 60 Random Glucose 70 Calcium 8.3 L Phosphorus 4.9 H Magnesium 1.5 L Total Bilirubin 7.9 H Direct Bilirubin AST 29 ALT 32 Alkaline Phosphatase 90 Lactate Dehydrogenase 612 NT-Pro-B Natriuret Pep Total Protein 5.8 Albumin 2.5 L Globulin 3.3 Albumin/Globulin Ratio 0.8 L Procalcitonin 43.21 H 08/13/18 08/13/18 08/13/18 13:15 17:10 17:10 WBC RBC Hgb Hct MCV MCH MCHC RDW Plt Count Manual Plt Count MPV Neut % (Auto) Lymph % (Auto) [place] % (Auto) Eos % (Auto) Baso % (Auto) Lymph # (Auto) [place] # (Auto) Eos # (Auto) Baso # (Auto) Absolute Neuts (auto) Neutrophils % (Manual) Lymphocytes % (Manual) Atypical Lymphs % Monocytes % (Manual) Eosinophils % (Manual) Platelet Evaluation PT 24.0 H INR 2.16 APTT 30.6 Fibrinogen 689 H* Fibrin Degrad Products >40 ug/ml pCO2 pO2 HCO3 ABG pH ABG Total CO2 ABG O2 Saturation ABG O2 Content ABG Base Excess ABG Hemoglobin ABG Carboxyhemoglobin POC ABG HHb (Measured) ABG Methemoglobin ABG O2 Capacity Hgb O2 Saturation FiO2 Sodium Potassium Chloride Carbon Dioxide Anion Gap BUN Creatinine Est GFR ( Amer) Est GFR (Non-Af Amer) Random Glucose Calcium Phosphorus Magnesium Total Bilirubin Direct Bilirubin AST ALT Alkaline Phosphatase Lactate Dehydrogenase NT-Pro-B Natriuret Pep 47744 H Total Protein Albumin Globulin Albumin/Globulin Ratio Procalcitonin 08/13/18 08/13/18 08/13/18 17:10 17:45 21:10 WBC 4.0 L D RBC 2.69 L Hgb 7.9 L Hct 23.8 L MCV 88.5 MCH 29.4 MCHC 33.2 RDW 16.1 H Plt Count 34 L* Manual Plt Count MPV 8.1 Neut % (Auto) Lymph % (Auto) [place] % (Auto) 25.7 H Eos % (Auto) 0.0 L Baso % (Auto) 1.2 Lymph # (Auto) [place] # (Auto) 1.0 H Eos # (Auto) 0.0 Baso # (Auto) 0.05 Absolute Neuts (auto) Neutrophils % (Manual) 19 L Lymphocytes % (Manual) 25 Atypical Lymphs % 7 H Monocytes % (Manual) 36 H Eosinophils % (Manual) 13 H Platelet Evaluation Low PT INR APTT Fibrinogen Fibrin Degrad Products pCO2 51 H pO2 82.0 HCO3 21.4 ABG pH 7.23 L ABG Total CO2 23.0 ABG O2 Saturation 98.0 ABG O2 Content 13.5 L ABG Base Excess -6.2 L ABG Hemoglobin 10.1 L ABG Carboxyhemoglobin 2.6 H POC ABG HHb (Measured) 1.9 ABG Methemoglobin 0.9 ABG O2 Capacity 13.8 L Hgb O2 Saturation 94.5 L FiO2 60.0 Sodium 146 Potassium 3.0 L Chloride 112 H Carbon Dioxide 23 Anion Gap 13 BUN 19 Creatinine 0.8 Est GFR ( Amer) > 60 Est GFR (Non-Af Amer) > 60 Random Glucose 86 Calcium 7.8 L Phosphorus Magnesium Total Bilirubin Direct Bilirubin AST ALT Alkaline Phosphatase Lactate Dehydrogenase NT-Pro-B Natriuret Pep Total Protein Albumin Globulin Albumin/Globulin Ratio Procalcitonin 08/14/18 08/14/18 08/14/18 05:40 05:40 05:40 WBC 4.0 L RBC 2.57 L Hgb 7.6 L Hct 22.7 L MCV 88.3 MCH 29.6 MCHC 33.5 RDW 16.3 H Plt Count 23 L* Manual Plt Count 26 L* MPV 10.0 Neut % (Auto) 39.7 L Lymph % (Auto) 16.0 L [place] % (Auto) 43.8 H Eos % (Auto) 0.0 L Baso % (Auto) 0.5 Lymph # (Auto) 0.6 L [place] # (Auto) 1.8 H Eos # (Auto) 0.0 Baso # (Auto) 0.02 Absolute Neuts (auto) 1.59 Neutrophils % (Manual) Lymphocytes % (Manual) Atypical Lymphs % Monocytes % (Manual) Eosinophils % (Manual) Platelet Evaluation Low PT INR APTT Fibrinogen Fibrin Degrad Products pCO2 pO2 HCO3 ABG pH ABG Total CO2 ABG O2 Saturation ABG O2 Content ABG Base Excess ABG Hemoglobin ABG Carboxyhemoglobin POC ABG HHb (Measured) ABG Methemoglobin ABG O2 Capacity Hgb O2 Saturation FiO2 Sodium 147 Potassium 2.7 L* Chloride 115 H Carbon Dioxide 23 Anion Gap 12 BUN 21 Creatinine 0.7 Est GFR ( Amer) > 60 Est GFR (Non-Af Amer) > 60 Random Glucose 82 Calcium 7.7 L Phosphorus 4.6 H Magnesium 2.0 Total Bilirubin 5.7 H Direct Bilirubin 4.9 H AST 26 ALT 25 Alkaline Phosphatase 74 Lactate Dehydrogenase NT-Pro-B Natriuret Pep Total Protein 5.0 L Albumin 2.1 L Globulin 3.0 Albumin/Globulin Ratio 0.7 L Procalcitonin 08/14/18 05:45 WBC RBC Hgb Hct MCV MCH MCHC RDW Plt Count Manual Plt Count MPV Neut % (Auto) Lymph % (Auto) [place] % (Auto) Eos % (Auto) Baso % (Auto) Lymph # (Auto) [place] # (Auto) Eos # (Auto) Baso # (Auto) Absolute Neuts (auto) Neutrophils % (Manual) Lymphocytes % (Manual) Atypical Lymphs % Monocytes % (Manual) Eosinophils % (Manual) Platelet Evaluation PT INR APTT Fibrinogen Fibrin Degrad Products pCO2 45 pO2 52.0 L HCO3 20.7 L ABG pH 7.27 L ABG Total CO2 22.1 ABG O2 Saturation 92.1 L ABG O2 Content 9.0 L ABG Base Excess -5.8 L ABG Hemoglobin 7.2 L ABG Carboxyhemoglobin 3.1 H POC ABG HHb (Measured) 7.6 H ABG Methemoglobin 1.1 ABG O2 Capacity 9.8 L Hgb O2 Saturation 88.3 L FiO2 60.0 Sodium Potassium Chloride Carbon Dioxide Anion Gap BUN Creatinine Est GFR ( Amer) Est GFR (Non-Af Amer) Random Glucose Calcium Phosphorus Magnesium Total Bilirubin Direct Bilirubin AST ALT Alkaline Phosphatase Lactate Dehydrogenase NT-Pro-B Natriuret Pep Total Protein Albumin Globulin Albumin/Globulin Ratio Procalcitonin Radiology Impressions: Radiology Impressions Chest X-Ray 08/13/18 08:11 IMPRESSION: Small bilateral pleural effusion. Opacities at both lung bases. Follow-up advised. Chest X-Ray 08/13/18 11:49 IMPRESSION: Bilateral alveolar infiltrates are seen left greater than right. Chronic interstitial changes are seen in both upper lobes. The endotracheal tube and nasogastric tubes are in satisfactory position Chest X-Ray 08/13/18 17:14 IMPRESSION: No significant interval change compared to the prior examination(s). Critical Care Progress Note - Nutrition Nutrition: Nutrition Category Date Time Status Liquid Diet [DIET] Diets 08/09/18 Lunch Ordered Assessment/Plan - Assessment and Plan (Free Text) Assessment: Pt is a 53 yo female with a PMH of MDS, AML, sickle cell disease, lung cancer, breast cancer, who presented to [facility] ED complaining of fever and abdominal pain, rapid response was called 08/13/18 for respiratory failure, pt was transfered to the ICU where she was intubated, a central line was placed, and a BAL was performed. Plan: Neuro - intubated and sedated - propofol - fentanyl Cardio - HTN - tachycardia - hydrocortisone 100mg IV - losartan, metoprolol, - ECHO EF42%, findings suggestive of MVP, RVSP 46, no signs of endocarditis Pulm - COPD, tobacco abuse - hypoxic respiratory failure secondary to ARDS, likely due to diffuse alveolar hemorrhage - V/Q scan low probability for PE - BAL completed, follow up results - monitor respiratory status - proceed with protective lung ventilation - ABG 45/52/7.27 - vent settings: 70%, PEEP10, RR30, TV 300 - harley villa, singular - Pulm consulted, Dr Maurer GI - NPO - CTAP shows diffuse thickening of the terminal ileum - GI consulted, Dr Dela Cruz Heme/Onc - MDS, AML, Sickle cell disease, lung cancer s/p resection, breast cancer s/p right-sided mastectomy, pancytopenia - not a candidate for bone marrow transplant - plt were transfused - possible blast crisis - WBC 4.0 - Hgb 7.6 - manual plt 26 - retic 0.10 - PT 24, INR 2.16, Fibrinogen 689, fibrin degrad products >40 - tranexamic acid - Heme/onc consulted, Dr Lopez Nephro/ - BUN/Cr 21/0.7 ID - procal [id number] - doxy, vanc, zosyn - ID consulted, Dr Yessica Rubin will maintain blood glucose 140-180, accoriding to the NICE-SUGAR trial - Date & Time Date: 08/14/18 Time: 09:13 <Nelson Martinez - Last Filed: 08/14/18 17:00> CCU Objective - Vital Signs / Intake & Output Vital Signs (Last 4 hours): Vital Signs Temp Pulse BP Pulse Ox 08/14/18 14:15 81/34 L 08/14/18 14:14 99.5 F 122 H 99 08/14/18 14:00 87/37 L 08/14/18 13:59 99.3 F 126 H 98 08/14/18 13:45 99.3 F 130 H 97 08/14/18 13:43 99.5 F 129 H 103/41 L 98 08/14/18 13:30 99.5 F 130 H 95 08/14/18 13:15 99.3 F 128 H 96 Intake and Output (Last 8hrs): Intake & Output 08/14/18 08/14/18 08/14/18 06:59 14:59 22:59 Intake Total 1970 100 Output Total 800 Balance 1170 100 Intake: IV 1970 100 Right Femoral 1770 Output: Urine 800 2-way Urethral 800 Other: # Bowel Movements 1 - Medications Active Medications: Active Medications Generic Name Dose Route Start Last Admin Trade Name Freq PRN Reason Stop Dose Admin Albuterol/Ipratropium 3 ml 08/08/18 14:07 08/12/18 03:00 Duoneb 3 Mg/0.5 Mg (3 Ml) Ud IH 3 ml [id number] PRN Administration Shortness of Breath Amlodipine Besylate 10 mg 08/08/18 10:00 08/13/18 10:00 Norvasc PO Not Given DAILY KAYLEIGH Atenolol 50 mg 08/13/18 10:00 08/14/18 10:58 Tenormin PO Not Given DAILY K[facility]LEIGH Budesonide 0.5 mg 08/07/18 20:00 08/14/18 07:48 Pulmicort Respules IH 0.5 mg BIDRESP KAYLEIGH Administration Clonazepam 0.5 mg 08/07/18 18:00 08/13/18 12:42 Klonopin PO Not Given BID [facility] Protocol Diphenhydramine HCl 25 mg 08/12/18 13:50 Benadryl IVP Q8H PRN Allergy symptoms Ergocalciferol 1 cap 08/12/18 10:00 08/12/18 09:24 Drisdol 50,000 Intl Units Cap PO 1 cap SUN KAYLEIGH Administration Fentanyl Citrate 1,000 mcg in 100 mls @ 7.5 mls/hr 08/13/18 11:35 08/14/18 13:55 Fentanyl Citrate/Sodium Chloride 1 Mg/100 Ml IV 75 mcg/hr .[id number] PRN 7.5 mls/hr TITRATE PER MD ORDER Administration Protocol 75 MCG/HR Acetaminophen 1,000 mg in 100 mls @ 400 mls/hr 08/13/18 12:06 08/14/18 10:56 Ofirmev IVPB 08/15/18 12:07 400 mls/hr Q8H PRN Administration fever>101.1 Propofol 1,000 mg in 100 mls @ 1.591 mls/hr 08/13/18 12:48 08/14/18 00:15 Diprivan IV 50 mcg/kg/min .Q24H PRN 15.908 mls/hr TITRATE PER MD ORDER Administration Protocol 5 MCG/KG/MIN Doxycycline Hyclate 100 mg/ 100 mls @ 100 mls/hr 08/13/18 13:30 08/14/18 10:5 8 Sodium Chloride IVPB 08/20/18 13:31 100 mls/hr Q12 [facility]IGH Administration Protocol Piperacillin Sod/Tazobactam Sod 100 mls @ 25 mls/hr 08/13/18 14:00 08/14/18 15:54 Zosyn 3.375 In Ns 100ml IVPB 08/20/18 14:01 25 mls/hr Q8 [facility] Administration Protocol Vancomycin HCl 1 gm in 250 mls @ 167 mls/hr 08/13/18 14:44 08/14/18 15:55 Vancomycin 1gm IVPB 167 mls/hr 0330,1530 K[facility]LEIGH Administration Protocol Sodium Chloride 1,000 mls @ 100 mls/hr 08/13/18 19:00 08/14/18 04:34 Sodium Chloride 0.9% IV 100 mls/hr .Q10H [facility] Administration NOREPINEPHRINE BIT/0.9 % NACL 4 mg in 250 mls @ 15 mls/hr 08/14/18 11:47 08/14/18 07:30 Levophed 4 Mg/ 250 Ml Ns Premixed IV 4 mcg/min .[id number] PRN 15 mls/hr TITRATE PER MD ORDER Administration Protocol 4 MCG/MIN Immune Globulin 30 gm/ 300 mls @ 50 mls/hr 08/14/18 12:11 Miscellaneous IV 08/14/18 18:10 ONCE ONE Potassium Chloride 20 meq/ 1,010 mls @ 100 mls/hr 08/14/18 15:02 Sodium Chloride IV .[id number] [facility] Methylprednisolone 250 mg/ 100 mls @ 200 mls/hr 08/14/18 16:30 Sodium Chloride IVPB 08/15/18 08:59 Q8H [facility] Ibuprofen 400 mg 08/13/18 07:45 Motrin Tab PO Q6H PRN Fever >100.4 F Ipratropium [place] 0.5 mg 08/14/18 14:00 08/14/18 13:28 Atrovent IH 0.5 mg TIDRESP K[facility]LEIGH Administration Levalbuterol HCl 0.63 mg 08/14/18 14:00 08/14/18 13:28 Xopenex IH 0.63 mg TIDRESP K[facility]LEIGH Administration Loratadine 10 mg 08/08/18 10:00 08/13/18 10:00 Claritin PO Not Given DAILY [facility] Losartan Potassium 50 mg 08/07/18 18:00 08/13/18 18:14 Cozaar PO Not Given QPM [facility] Magnesium Oxide 400 mg 08/07/18 18:00 08/14/18 10:55 Mag-Ox PO 400 mg BID [facility] Administration Metoprolol Tartrate 5 mg 08/13/18 09:01 08/13/18 12:49 Lopressor IVP 5 mg ONCE PRN Administration HR above 130's Montelukast Sodium 10 mg 08/08/18 10:00 08/14/18 10:58 Singulair PO Not Given DAILY [facility] Mupirocin 1 gm 08/13/18 20:30 08/14/18 10:55 Bactroban Ointment TOP 1 unit BID [facility] Administration Nicotine 1 patch 08/07/18 16:45 08/12/18 09:26 Nicoderm Cq TD Not Given DAILY [facility] Non-Formulary Medication 1 cap 08/08/18 10:00 08/14/18 10:59 Vitamin B Complex [Super B-50 Complex] PO Not Given DAILY [facility] Ondansetron HCl 4 mg 08/08/18 13:17 08/10/18 02:02 Zofran Inj IVP 4 mg Q6H PRN Administration Nausea/Vomiting Oxycodone HCl 5 mg 08/11/18 13:24 08/13/18 04:51 Oxycodone Immediate Release Tab PO 5 mg Q8H PRN Administration Pain, severe (8-10) Pantoprazole Sodium 40 mg 08/13/18 10:00 08/14/18 10:57 Protonix Inj IVP 40 mg DAILY [facility] Administration Potassium Chloride 20 meq 08/08/18 10:00 08/14/18 10:55 K-Dur 20 Meq Er Tab PO 20 meq DAILY [facility]LE[facility] Administration Sodium Chloride 0 ml 08/07/18 18:00 08/14/18 14:21 [place] Nasal [place] NS Not Given QID [facility] Tramadol HCl 50 mg 08/11/18 13:22 Ultram PO TID PRN Pain, moderate (4-7) Tranexamic Acid 500 mg 08/13/18 14:00 08/14/18 13:31 Tranexamic Acid IH 100 mg TIDRESP KAYLEIGH Administration - Patient Studies Lab Studies: Microbiology Studies 08/13/18 17:00 Gram Stain - Final Sputum 08/13/18 14:00 C. difficile Antigen & Toxins A,B - Final Stool 08/11/18 20:45 Blood Culture - Preliminary Blood NO GROWTH AFTER 48 HOURS 08/11/18 20:25 Blood Culture - Preliminary Blood NO GROWTH AFTER 48 HOURS 08/11/18 21:00 MRSA Culture (Admit) - Final Naris MRSA DETECTED 08/13/18 11:00 Gram Stain - Final Trachasp Lab Studies 08/14/18 08/14/18 08/14/18 Range/Units 13:24 10:00 08:50 WBC (4.5-11.0) 10^3/uL RBC (3.5-6.1) 10^6/uL Hgb (12.0-16.0) g/dL Hct (36.0-48.0) % MCV (80.0-105.0) fl MCH (25.0-35.0) pg MCHC (31.0-37.0) g/dl RDW (11.5-14.5) % Plt Count (120.0-450.0) 10^3/uL Manual Plt Count (120-450) K/mm3 MPV (7.0-11.0) fl Neut % (Auto) (50.0-68.0) % Lymph % (Auto) (22.0-35.0) % [place] % (Auto) (1.0-6.0) % Eos % (Auto) (1.5-5.0) % Baso % (Auto) (0.0-3.0) % Lymph # (Auto) (1.2-3.4) [place] # (Auto) (0.1-0.6) Eos # (Auto) (0.0-0.7) Baso # (Auto) (0.0-2.0) K/mm3 Absolute Neuts (auto) (1.4-6.5) Neutrophils % (Manual) (50.0-70.0) % Lymphocytes % (Manual) (22.0-35.0) % Atypical Lymphs % (0.0-0.0) % Monocytes % (Manual) (1.0-6.0) % Eosinophils % (Manual) (0.0-3.0) % Platelet Evaluation (NORMAL) Retic Count (0.5-1.5) % Haptoglobin (30.0-200.0) mg/dL PT (9.4-12.5) SECONDS INR APTT (26.9-38.3) Seconds Fibrinogen (200-400) mg/dl Fibrin Degrad Products (< 10 ug/mL) pCO2 (35-45) mm/Hg pO2 (80-100) mm/Hg HCO3 (21-28) mmol/L ABG pH (7.35-7.45) ABG Total CO2 (22-28) mmol.L ABG O2 Saturation (95-98) % ABG O2 Content (15-23) ML/dl ABG Base Excess (-2.0-3.0) mmol/L ABG Hemoglobin (11.7-17.4) g/dL ABG Carboxyhemoglobin (0.5-1.5) % POC ABG HHb (Measured) (0-5) % ABG Methemoglobin (0.0-3.0) % ABG O2 Capacity (16-24) mL/dl Hgb O2 Saturation (95.0-98.0) % FiO2 % Sodium (132-148) mmol/L Potassium (3.6-5.0) mmol/L Chloride (98-107) mmol/L Carbon Dioxide (21-33) mmol/L Anion Gap (10-20) BUN (7-21) mg/dL Creatinine (0.7-1.2) mg/dl Est GFR ( Amer) Est GFR (Non-Af Amer) Random Glucose (70-110) mg/dL Calcium (8.4-10.5) mg/dL Phosphorus (2.5-4.5) mg/dL Magnesium (1.7-2.2) mg/dL Total Bilirubin (0.2-1.3) mg/dL Direct Bilirubin (0.0-0.4) mg/dL GGT 66 (8-78) U/L AST (14-36) U/L ALT (7-56) U/L Alkaline Phosphatase (38-126) U/L Lactate Dehydrogenase 487 (333-699) U/L NT-Pro-B Natriuret Pep (0-450) pg/mL Total Protein (5.8-8.3) g/dL Albumin (3.0-4.8) g/dL Globulin gm/dL Albumin/Globulin Ratio (1.1-1.8) Fluid Source Peritoneal/ascites Fluid Appearance Bloody (CLEAR) Fluid WBC 40.0 (0.0-300.0) /uL Fluid RBC 88316.0 H (0.0-0.0) /uL Fluid Tot Cell Count 100 H (0-0) Fluid Mononuclear Cell 73.3 H (0-0) % Fl Polymorphonucl Cell 26.7 H (0-0) % Fluid Comment Cloudy CMV Specimen Source CMV DNA Quant PCR (<200) IU/mL CMV Qnt PCR log IU/mL (<2.30) log IU/mL HIV 1&2 Ag/Ab, 4th Gen (Nonreactive) Blood Type B POSITIVE Antibody Screen Negative Crossmatch See Detail BBK History Checked Patient has bt 08/14/18 08/14/18 08/14/18 Range/Units 08:50 08:50 05:45 WBC (4.5-11.0) 10^3/uL RBC (3.5-6.1) 10^6/uL Hgb (12.0-16.0) g/dL Hct (36.0-48.0) % MCV (80.0-105.0) fl MCH (25.0-35.0) pg MCHC (31.0-37.0) g/dl RDW (11.5-14.5) % Plt Count (120.0-450.0) 10^3/uL Manual Plt Count (120-450) K/mm3 MPV (7.0-11.0) fl Neut % (Auto) (50.0-68.0) % Lymph % (Auto) (22.0-35.0) % [place] % (Auto) (1.0-6.0) % Eos % (Auto) (1.5-5.0) % Baso % (Auto) (0.0-3.0) % Lymph # (Auto) (1.2-3.4) [place] # (Auto) (0.1-0.6) Eos # (Auto) (0.0-0.7) Baso # (Auto) (0.0-2.0) K/mm3 Absolute Neuts (auto) (1.4-6.5) Neutrophils % (Manual) (50.0-70.0) % Lymphocytes % (Manual) (22.0-35.0) % Atypical Lymphs % (0.0-0.0) % Monocytes % (Manual) (1.0-6.0) % Eosinophils % (Manual) (0.0-3.0) % Platelet Evaluation (NORMAL) Retic Count 0.10 L (0.5-1.5) % Haptoglobin 321.1 H (30.0-200.0) mg/dL PT (9.4-12.5) SECONDS INR APTT (26.9-38.3) Seconds Fibrinogen (200-400) mg/dl Fibrin Degrad Products (< 10 ug/mL) pCO2 45 (35-45) mm/Hg pO2 52.0 L (80-100) mm/Hg HCO3 20.7 L (21-28) mmol/L ABG pH 7.27 L (7.35-7.45) ABG Total CO2 22.1 (22-28) mmol.L ABG O2 Saturation 92.1 L (95-98) % ABG O2 Content 9.0 L (15-23) ML/dl ABG Base Excess -5.8 L (-2.0-3.0) mmol/L ABG Hemoglobin 7.2 L (11.7-17.4) g/dL ABG Carboxyhemoglobin 3.1 H (0.5-1.5) % POC ABG HHb (Measured) 7.6 H (0-5) % ABG Methemoglobin 1.1 (0.0-3.0) % ABG O2 Capacity 9.8 L (16-24) mL/dl Hgb O2 Saturation 88.3 L (95.0-98.0) % FiO2 60.0 % Sodium (132-148) mmol/L Potassium (3.6-5.0) mmol/L Chloride (98-107) mmol/L Carbon Dioxide (21-33) mmol/L Anion Gap (10-20) BUN (7-21) mg/dL Creatinine (0.7-1.2) mg/dl Est GFR ( Amer) Est GFR (Non-Af Amer) Random Glucose (70-110) mg/dL Calcium (8.4-10.5) mg/dL Phosphorus (2.5-4.5) mg/dL Magnesium (1.7-2.2) mg/dL Total Bilirubin (0.2-1.3) mg/dL Direct Bilirubin (0.0-0.4) mg/dL GGT (8-78) U/L AST (14-36) U/L ALT (7-56) U/L Alkaline Phosphatase (38-126) U/L Lactate Dehydrogenase (333-699) U/L NT-Pro-B Natriuret Pep (0-450) pg/mL Total Protein (5.8-8.3) g/dL Albumin (3.0-4.8) g/dL Globulin gm/dL Albumin/Globulin Ratio (1.1-1.8) Fluid Source Fluid Appearance (CLEAR) Fluid WBC (0.0-300.0) /uL Fluid RBC (0.0-0.0) /uL Fluid Tot Cell Count (0-0) Fluid Mononuclear Cell (0-0) % Fl Polymorphonucl Cell (0-0) % Fluid Comment CMV Specimen Source CMV DNA Quant PCR (<200) IU/mL CMV Qnt PCR log IU/mL (<2.30) log IU/mL HIV 1&2 Ag/Ab, 4th Gen (Nonreactive) Blood Type Antibody Screen Crossmatch BBK History Checked 08/14/18 08/14/18 08/14/18 Range/Units 05:40 05:40 05:40 WBC 4.0 L (4.5-11.0) 10^3/uL RBC 2.57 L (3.5-6.1) 10^6/uL Hgb 7.6 L (12.0-16.0) g/dL Hct 22.7 L (36.0-48.0) % MCV 88.3 (80.0-105.0) fl MCH 29.6 (25.0-35.0) pg MCHC 33.5 (31.0-37.0) g/dl RDW 16.3 H (11.5-14.5) % Plt Count 23 L* (120.0-450.0) 10^3/uL Manual Plt Count 26 L* (120-450) K/mm3 MPV 10.0 (7.0-11.0) fl Neut % (Auto) 39.7 L (50.0-68.0) % Lymph % (Auto) 16.0 L (22.0-35.0) % [place] % (Auto) 43.8 H (1.0-6.0) % Eos % (Auto) 0.0 L (1.5-5.0) % Baso % (Auto) 0.5 (0.0-3.0) % Lymph # (Auto) 0.6 L (1.2-3.4) [place] # (Auto) 1.8 H (0.1-0.6) Eos # (Auto) 0.0 (0.0-0.7) Baso # (Auto) 0.02 (0.0-2.0) K/mm3 Absolute Neuts (auto) 1.59 (1.4-6.5) Neutrophils % (Manual) (50.0-70.0) % Lymphocytes % (Manual) (22.0-35.0) % Atypical Lymphs % (0.0-0.0) % Monocytes % (Manual) (1.0-6.0) % Eosinophils % (Manual) (0.0-3.0) % Platelet Evaluation Low (NORMAL) Retic Count (0.5-1.5) % Haptoglobin (30.0-200.0) mg/dL PT (9.4-12.5) SECONDS INR APTT (26.9-38.3) Seconds Fibrinogen (200-400) mg/dl Fibrin Degrad Products (< 10 ug/mL) pCO2 (35-45) mm/Hg pO2 (80-100) mm/Hg HCO3 (21-28) mmol/L ABG pH (7.35-7.45) ABG Total CO2 (22-28) mmol.L ABG O2 Saturation (95-98) % ABG O2 Content (15-23) ML/dl ABG Base Excess (-2.0-3.0) mmol/L ABG Hemoglobin (11.7-17.4) g/dL ABG Carboxyhemoglobin (0.5-1.5) % POC ABG HHb (Measured) (0-5) % ABG Methemoglobin (0.0-3.0) % ABG O2 Capacity (16-24) mL/dl Hgb O2 Saturation (95.0-98.0) % FiO2 % Sodium 147 (132-148) mmol/L Potassium 2.7 L* (3.6-5.0) mmol/L Chloride 115 H (98-107) mmol/L Carbon Dioxide 23 (21-33) mmol/L Anion Gap 12 (10-20) BUN 21 (7-21) mg/dL Creatinine 0.7 (0.7-1.2) mg/dl Est GFR ( Amer) > 60 Est GFR (Non-Af Amer) > 60 Random Glucose 82 (70-110) mg/dL Calcium 7.7 L (8.4-10.5) mg/dL Phosphorus 4.6 H (2.5-4.5) mg/dL Magnesium 2.0 (1.7-2.2) mg/dL Total Bilirubin 5.7 H (0.2-1.3) mg/dL Direct Bilirubin 4.9 H (0.0-0.4) mg/dL GGT (8-78) U/L AST 26 (14-36) U/L ALT 25 (7-56) U/L Alkaline Phosphatase 74 (38-126) U/L Lactate Dehydrogenase (333-699) U/L NT-Pro-B Natriuret Pep (0-450) pg/mL Total Protein 5.0 L (5.8-8.3) g/dL Albumin 2.1 L (3.0-4.8) g/dL Globulin 3.0 gm/dL Albumin/Globulin Ratio 0.7 L (1.1-1.8) Fluid Source Fluid Appearance (CLEAR) Fluid WBC (0.0-300.0) /uL Fluid RBC (0.0-0.0) /uL Fluid Tot Cell Count (0-0) Fluid Mononuclear Cell (0-0) % Fl Polymorphonucl Cell (0-0) % Fluid Comment CMV Specimen Source CMV DNA Quant PCR (<200) IU/mL CMV Qnt PCR log IU/mL (<2.30) log IU/mL HIV 1&2 Ag/Ab, 4th Gen (Nonreactive) Blood Type Antibody Screen Crossmatch BBK History Checked 08/13/18 08/13/18 08/13/18 Range/Units 21:10 17:45 17:10 WBC 4.0 L D (4.5-11.0) 10^3/uL RBC 2.69 L (3.5-6.1) 10^6/uL Hgb 7.9 L (12.0-16.0) g/dL Hct 23.8 L (36.0-48.0) % MCV 88.5 (80.0-105.0) fl MCH 29.4 (25.0-35.0) pg MCHC 33.2 (31.0-37.0) g/dl RDW 16.1 H (11.5-14.5) % Plt Count 34 L* (120.0-450.0) 10^3/uL Manual Plt Count (120-450) K/mm3 MPV 8.1 (7.0-11.0) fl Neut % (Auto) (50.0-68.0) % Lymph % (Auto) (22.0-35.0) % [place] % (Auto) 25.7 H (1.0-6.0) % Eos % (Auto) 0.0 L (1.5-5.0) % Baso % (Auto) 1.2 (0.0-3.0) % Lymph # (Auto) (1.2-3.4) [place] # (Auto) 1.0 H (0.1-0.6) Eos # (Auto) 0.0 (0.0-0.7) Baso # (Auto) 0.05 (0.0-2.0) K/mm3 Absolute Neuts (auto) (1.4-6.5) Neutrophils % (Manual) 19 L (50.0-70.0) % Lymphocytes % (Manual) 25 (22.0-35.0) % Atypical Lymphs % 7 H (0.0-0.0) % Monocytes % (Manual) 36 H (1.0-6.0) % Eosinophils % (Manual) 13 H (0.0-3.0) % Platelet Evaluation Low (NORMAL) Retic Count (0.5-1.5) % Haptoglobin (30.0-200.0) mg/dL PT (9.4-12.5) SECONDS INR APTT (26.9-38.3) Seconds Fibrinogen (200-400) mg/dl Fibrin Degrad Products (< 10 ug/mL) pCO2 51 H (35-45) mm/Hg pO2 82.0 (80-100) mm/Hg HCO3 21.4 (21-28) mmol/L ABG pH 7.23 L (7.35-7.45) ABG Total CO2 23.0 (22-28) mmol.L ABG O2 Saturation 98.0 (95-98) % ABG O2 Content 13.5 L (15-23) ML/dl ABG Base Excess -6.2 L (-2.0-3.0) mmol/L ABG Hemoglobin 10.1 L (11.7-17.4) g/dL ABG Carboxyhemoglobin 2.6 H (0.5-1.5) % POC ABG HHb (Measured) 1.9 (0-5) % ABG Methemoglobin 0.9 (0.0-3.0) % ABG O2 Capacity 13.8 L (16-24) mL/dl Hgb O2 Saturation 94.5 L (95.0-98.0) % FiO2 60.0 % Sodium 146 (132-148) mmol/L Potassium 3.0 L (3.6-5.0) mmol/L Chloride 112 H (98-107) mmol/L Carbon Dioxide 23 (21-33) mmol/L Anion Gap 13 (10-20) BUN 19 (7-21) mg/dL Creatinine 0.8 (0.7-1.2) mg/dl Est GFR ( Amer) > 60 Est GFR (Non-Af Amer) > 60 Random Glucose 86 (70-110) mg/dL Calcium 7.8 L (8.4-10.5) mg/dL Phosphorus (2.5-4.5) mg/dL Magnesium (1.7-2.2) mg/dL Total Bilirubin (0.2-1.3) mg/dL Direct Bilirubin (0.0-0.4) mg/dL GGT (8-78) U/L AST (14-36) U/L ALT (7-56) U/L Alkaline Phosphatase (38-126) U/L Lactate Dehydrogenase (333-699) U/L NT-Pro-B Natriuret Pep (0-450) pg/mL Total Protein (5.8-8.3) g/dL Albumin (3.0-4.8) g/dL Globulin gm/dL Albumin/Globulin Ratio (1.1-1.8) Fluid Source Fluid Appearance (CLEAR) Fluid WBC (0.0-300.0) /uL Fluid RBC (0.0-0.0) /uL Fluid Tot Cell Count (0-0) Fluid Mononuclear Cell (0-0) % Fl Polymorphonucl Cell (0-0) % Fluid Comment CMV Specimen Source CMV DNA Quant PCR (<200) IU/mL CMV Qnt PCR log IU/mL (<2.30) log IU/mL HIV 1&2 Ag/Ab, 4th Gen (Nonreactive) Blood Type Antibody Screen Crossmatch BBK History Checked 08/13/18 08/13/18 08/13/18 Range/Units 17:10 17:10 13:15 WBC (4.5-11.0) 10^3/uL RBC (3.5-6.1) 10^6/uL Hgb (12.0-16.0) g/dL Hct (36.0-48.0) % MCV (80.0-105.0) fl MCH (25.0-35.0) pg MCHC (31.0-37.0) g/dl RDW (11.5-14.5) % Plt Count (120.0-450.0) 10^3/uL Manual Plt Count (120-450) K/mm3 MPV (7.0-11.0) fl Neut % (Auto) (50.0-68.0) % Lymph % (Auto) (22.0-35.0) % [place] % (Auto) (1.0-6.0) % Eos % (Auto) (1.5-5.0) % Baso % (Auto) (0.0-3.0) % Lymph # (Auto) (1.2-3.4) [place] # (Auto) (0.1-0.6) Eos # (Auto) (0.0-0.7) Baso # (Auto) (0.0-2.0) K/mm3 Absolute Neuts (auto) (1.4-6.5) Neutrophils % (Manual) (50.0-70.0) % Lymphocytes % (Manual) (22.0-35.0) % Atypical Lymphs % (0.0-0.0) % Monocytes % (Manual) (1.0-6.0) % Eosinophils % (Manual) (0.0-3.0) % Platelet Evaluation (NORMAL) Retic Count (0.5-1.5) % Haptoglobin (30.0-200.0) mg/dL PT 24.0 H (9.4-12.5) SECONDS INR 2.16 APTT 30.6 (26.9-38.3) Seconds Fibrinogen 689 H* (200-400) mg/dl Fibrin Degrad Products >40 ug/ml (< 10 ug/mL) pCO2 (35-45) mm/Hg pO2 (80-100) mm/Hg HCO3 (21-28) mmol/L ABG pH (7.35-7.45) ABG Total CO2 (22-28) mmol.L ABG O2 Saturation (95-98) % ABG O2 Content (15-23) ML/dl ABG Base Excess (-2.0-3.0) mmol/L ABG Hemoglobin (11.7-17.4) g/dL ABG Carboxyhemoglobin (0.5-1.5) % POC ABG HHb (Measured) (0-5) % ABG Methemoglobin (0.0-3.0) % ABG O2 Capacity (16-24) mL/dl Hgb O2 Saturation (95.0-98.0) % FiO2 % Sodium (132-148) mmol/L Potassium (3.6-5.0) mmol/L Chloride (98-107) mmol/L Carbon Dioxide (21-33) mmol/L Anion Gap (10-20) BUN (7-21) mg/dL Creatinine (0.7-1.2) mg/dl Est GFR ( Amer) Est GFR (Non-Af Amer) Random Glucose (70-110) mg/dL Calcium (8.4-10.5) mg/dL Phosphorus (2.5-4.5) mg/dL Magnesium (1.7-2.2) mg/dL Total Bilirubin (0.2-1.3) mg/dL Direct Bilirubin (0.0-0.4) mg/dL GGT (8-78) U/L AST (14-36) U/L ALT (7-56) U/L Alkaline Phosphatase (38-126) U/L Lactate Dehydrogenase (333-699) U/L NT-Pro-B Natriuret Pep 43179 H (0-450) pg/mL Total Protein (5.8-8.3) g/dL Albumin (3.0-4.8) g/dL Globulin gm/dL Albumin/Globulin Ratio (1.1-1.8) Fluid Source Fluid Appearance (CLEAR) Fluid WBC (0.0-300.0) /uL Fluid RBC (0.0-0.0) /uL Fluid Tot Cell Count (0-0) Fluid Mononuclear Cell (0-0) % Fl Polymorphonucl Cell (0-0) % Fluid Comment CMV Specimen Source CMV DNA Quant PCR (<200) IU/mL CMV Qnt PCR log IU/mL (<2.30) log IU/mL HIV 1&2 Ag/Ab, 4th Gen (Nonreactive) Blood Type Antibody Screen Crossmatch BBK History Checked 08/12/18 08/10/18 Range/Units 07:00 12:50 WBC (4.5-11.0) 10^3/uL RBC (3.5-6.1) 10^6/uL Hgb (12.0-16.0) g/dL Hct (36.0-48.0) % MCV (80.0-105.0) fl MCH (25.0-35.0) pg MCHC (31.0-37.0) g/dl RDW (11.5-14.5) % Plt Count (120.0-450.0) 10^3/uL Manual Plt Count (120-450) K/mm3 MPV (7.0-11.0) fl Neut % (Auto) (50.0-68.0) % Lymph % (Auto) (22.0-35.0) % [place] % (Auto) (1.0-6.0) % Eos % (Auto) (1.5-5.0) % Baso % (Auto) (0.0-3.0) % Lymph # (Auto) (1.2-3.4) [place] # (Auto) (0.1-0.6) Eos # (Auto) (0.0-0.7) Baso # (Auto) (0.0-2.0) K/mm3 Absolute Neuts (auto) (1.4-6.5) Neutrophils % (Manual) (50.0-70.0) % Lymphocytes % (Manual) (22.0-35.0) % Atypical Lymphs % (0.0-0.0) % Monocytes % (Manual) (1.0-6.0) % Eosinophils % (Manual) (0.0-3.0) % Platelet Evaluation (NORMAL) Retic Count (0.5-1.5) % Haptoglobin (30.0-200.0) mg/dL PT (9.4-12.5) SECONDS INR APTT (26.9-38.3) Seconds Fibrinogen (200-400) mg/dl Fibrin Degrad Products (< 10 ug/mL) pCO2 (35-45) mm/Hg pO2 (80-100) mm/Hg HCO3 (21-28) mmol/L ABG pH (7.35-7.45) ABG Total CO2 (22-28) mmol.L ABG O2 Saturation (95-98) % ABG O2 Content (15-23) ML/dl ABG Base Excess (-2.0-3.0) mmol/L ABG Hemoglobin (11.7-17.4) g/dL ABG Carboxyhemoglobin (0.5-1.5) % POC ABG HHb (Measured) (0-5) % ABG Methemoglobin (0.0-3.0) % ABG O2 Capacity (16-24) mL/dl Hgb O2 Saturation (95.0-98.0) % FiO2 % Sodium (132-148) mmol/L Potassium (3.6-5.0) mmol/L Chloride (98-107) mmol/L Carbon Dioxide (21-33) mmol/L Anion Gap (10-20) BUN (7-21) mg/dL Creatinine (0.7-1.2) mg/dl Est GFR ( Amer) Est GFR (Non-Af Amer) Random Glucose (70-110) mg/dL Calcium (8.4-10.5) mg/dL Phosphorus (2.5-4.5) mg/dL Magnesium (1.7-2.2) mg/dL Total Bilirubin (0.2-1.3) mg/dL Direct Bilirubin (0.0-0.4) mg/dL GGT (8-78) U/L AST (14-36) U/L ALT (7-56) U/L Alkaline Phosphatase (38-126) U/L Lactate Dehydrogenase (333-699) U/L NT-Pro-B Natriuret Pep (0-450) pg/mL Total Protein (5.8-8.3) g/dL Albumin (3.0-4.8) g/dL Globulin gm/dL Albumin/Globulin Ratio (1.1-1.8) Fluid Source Fluid Appearance (CLEAR) Fluid WBC (0.0-300.0) /uL Fluid RBC (0.0-0.0) /uL Fluid Tot Cell Count (0-0) Fluid Mononuclear Cell (0-0) % Fl Polymorphonucl Cell (0-0) % Fluid Comment CMV Specimen Source Plasma CMV DNA Quant PCR <200 (<200) IU/mL CMV Qnt PCR log IU/mL <2.30 (<2.30) log IU/mL HIV 1&2 Ag/Ab, 4th Gen Nonreactive (Nonreactive) Blood Type Antibody Screen Crossmatch BBK History Checked Laboratory Results - last 24 hr 08/10/18 08/12/18 08/13/18 12:50 07:00 13:15 WBC RBC Hgb Hct MCV MCH MCHC RDW Plt Count Manual Plt Count MPV Neut % (Auto) Lymph % (Auto) [place] % (Auto) Eos % (Auto) Baso % (Auto) Lymph # (Auto) [place] # (Auto) Eos # (Auto) Baso # (Auto) Absolute Neuts (auto) Neutrophils % (Manual) Lymphocytes % (Manual) Atypical Lymphs % Monocytes % (Manual) Eosinophils % (Manual) Platelet Evaluation Retic Count Haptoglobin PT INR APTT Fibrinogen Fibrin Degrad Products pCO2 pO2 HCO3 ABG pH ABG Total CO2 ABG O2 Saturation ABG O2 Content ABG Base Excess ABG Hemoglobin ABG Carboxyhemoglobin POC ABG HHb (Measured) ABG Methemoglobin ABG O2 Capacity Hgb O2 Saturation FiO2 Sodium Potassium Chloride Carbon Dioxide Anion Gap BUN Creatinine Est GFR ( Amer) Est GFR (Non-Af Amer) Random Glucose Calcium Phosphorus Magnesium Total Bilirubin Direct Bilirubin GGT AST ALT Alkaline Phosphatase Lactate Dehydrogenase NT-Pro-B Natriuret Pep 28742 H Total Protein Albumin Globulin Albumin/Globulin Ratio Fluid Source Fluid Appearance Fluid WBC Fluid RBC Fluid Tot Cell Count Fluid Mononuclear Cell Fl Polymorphonucl Cell Fluid Comment CMV Specimen Source Plasma CMV DNA Quant PCR <200 CMV Qnt PCR log IU/mL <2.30 HIV 1&2 Ag/Ab, 4th Gen Nonreactive Blood Type Antibody Screen Crossmatch BBK History Checked 08/13/18 08/13/18 08/13/18 17:10 17:10 17:10 WBC 4.0 L D RBC 2.69 L Hgb 7.9 L Hct 23.8 L MCV 88.5 MCH 29.4 MCHC 33.2 RDW 16.1 H Plt Count 34 L* Manual Plt Count MPV 8.1 Neut % (Auto) Lymph % (Auto) [place] % (Auto) 25.7 H Eos % (Auto) 0.0 L Baso % (Auto) 1.2 Lymph # (Auto) [place] # (Auto) 1.0 H Eos # (Auto) 0.0 Baso # (Auto) 0.05 Absolute Neuts (auto) Neutrophils % (Manual) 19 L Lymphocytes % (Manual) 25 Atypical Lymphs % 7 H Monocytes % (Manual) 36 H Eosinophils % (Manual) 13 H Platelet Evaluation Low Retic Count Haptoglobin PT 24.0 H INR 2.16 APTT 30.6 Fibrinogen 689 H* Fibrin Degrad Products >40 ug/ml pCO2 pO2 HCO3 ABG pH ABG Total CO2 ABG O2 Saturation ABG O2 Content ABG Base Excess ABG Hemoglobin ABG Carboxyhemoglobin POC ABG HHb (Measured) ABG Methemoglobin ABG O2 Capacity Hgb O2 Saturation FiO2 Sodium Potassium Chloride Carbon Dioxide Anion Gap BUN Creatinine Est GFR ( Amer) Est GFR (Non-Af Amer) Random Glucose Calcium Phosphorus Magnesium Total Bilirubin Direct Bilirubin GGT AST ALT Alkaline Phosphatase Lactate Dehydrogenase NT-Pro-B Natriuret Pep Total Protein Albumin Globulin Albumin/Globulin Ratio Fluid Source Fluid Appearance Fluid WBC Fluid RBC Fluid Tot Cell Count Fluid Mononuclear Cell Fl Polymorphonucl Cell Fluid Comment CMV Specimen Source CMV DNA Quant PCR CMV Qnt PCR log IU/mL HIV 1&2 Ag/Ab, 4th Gen Blood Type Antibody Screen Crossmatch BBK History Checked 08/13/18 08/13/18 08/14/18 17:45 21:10 05:40 WBC 4.0 L RBC 2.57 L Hgb 7.6 L Hct 22.7 L MCV 88.3 MCH 29.6 MCHC 33.5 RDW 16.3 H Plt Count 23 L* Manual Plt Count 26 L* MPV 10.0 Neut % (Auto) 39.7 L Lymph % (Auto) 16.0 L [place] % (Auto) 43.8 H Eos % (Auto) 0.0 L Baso % (Auto) 0.5 Lymph # (Auto) 0.6 L [place] # (Auto) 1.8 H Eos # (Auto) 0.0 Baso # (Auto) 0.02 Absolute Neuts (auto) 1.59 Neutrophils % (Manual) Lymphocytes % (Manual) Atypical Lymphs % Monocytes % (Manual) Eosinophils % (Manual) Platelet Evaluation Low Retic Count Haptoglobin PT INR APTT Fibrinogen Fibrin Degrad Products pCO2 51 H pO2 82.0 HCO3 21.4 ABG pH 7.23 L ABG Total CO2 23.0 ABG O2 Saturation 98.0 ABG O2 Content 13.5 L ABG Base Excess -6.2 L ABG Hemoglobin 10.1 L ABG Carboxyhemoglobin 2.6 H POC ABG HHb (Measured) 1.9 ABG Methemoglobin 0.9 ABG O2 Capacity 13.8 L Hgb O2 Saturation 94.5 L FiO2 60.0 Sodium 146 Potassium 3.0 L Chloride 112 H Carbon Dioxide 23 Anion Gap 13 BUN 19 Creatinine 0.8 Est GFR ( Amer) > 60 Est GFR (Non-Af Amer) > 60 Random Glucose 86 Calcium 7.8 L Phosphorus Magnesium Total Bilirubin Direct Bilirubin GGT AST ALT Alkaline Phosphatase Lactate Dehydrogenase NT-Pro-B Natriuret Pep Total Protein Albumin Globulin Albumin/Globulin Ratio Fluid Source Fluid Appearance Fluid WBC Fluid RBC Fluid Tot Cell Count Fluid Mononuclear Cell Fl Polymorphonucl Cell Fluid Comment CMV Specimen Source CMV DNA Quant PCR CMV Qnt PCR log IU/mL HIV 1&2 Ag/Ab, 4th Gen Blood Type Antibody Screen Crossmatch BBK History Checked 08/14/18 08/14/18 08/14/18 05:40 05:40 05:45 WBC RBC Hgb Hct MCV MCH MCHC RDW Plt Count Manual Plt Count MPV Neut % (Auto) Lymph % (Auto) [place] % (Auto) Eos % (Auto) Baso % (Auto) Lymph # (Auto) [place] # (Auto) Eos # (Auto) Baso # (Auto) Absolute Neuts (auto) Neutrophils % (Manual) Lymphocytes % (Manual) Atypical Lymphs % Monocytes % (Manual) Eosinophils % (Manual) Platelet Evaluation Retic Count Haptoglobin PT INR APTT Fibrinogen Fibrin Degrad Products pCO2 45 pO2 52.0 L HCO3 20.7 L ABG pH 7.27 L ABG Total CO2 22.1 ABG O2 Saturation 92.1 L ABG O2 Content 9.0 L ABG Base Excess -5.8 L ABG Hemoglobin 7.2 L ABG Carboxyhemoglobin 3.1 H POC ABG HHb (Measured) 7.6 H ABG Methemoglobin 1.1 ABG O2 Capacity 9.8 L Hgb O2 Saturation 88.3 L FiO2 60.0 Sodium 147 Potassium 2.7 L* Chloride 115 H Carbon Dioxide 23 Anion Gap 12 BUN 21 Creatinine 0.7 Est GFR ( Amer) > 60 Est GFR (Non-Af Amer) > 60 Random Glucose 82 Calcium 7.7 L Phosphorus 4.6 H Magnesium 2.0 Total Bilirubin 5.7 H Direct Bilirubin 4.9 H GGT AST 26 ALT 25 Alkaline Phosphatase 74 Lactate Dehydrogenase NT-Pro-B Natriuret Pep Total Protein 5.0 L Albumin 2.1 L Globulin 3.0 Albumin/Globulin Ratio 0.7 L Fluid Source Fluid Appearance Fluid WBC Fluid RBC Fluid Tot Cell Count Fluid Mononuclear Cell Fl Polymorphonucl Cell Fluid Comment CMV Specimen Source CMV DNA Quant PCR CMV Qnt PCR log IU/mL HIV 1&2 Ag/Ab, 4th Gen Blood Type Antibody Screen Crossmatch BBK History Checked 08/14/18 08/14/18 08/14/18 08:50 08:50 08:50 WBC RBC Hgb Hct MCV MCH MCHC RDW Plt Count Manual Plt Count MPV Neut % (Auto) Lymph % (Auto) [place] % (Auto) Eos % (Auto) Baso % (Auto) Lymph # (Auto) [place] # (Auto) Eos # (Auto) Baso # (Auto) Absolute Neuts (auto) Neutrophils % (Manual) Lymphocytes % (Manual) Atypical Lymphs % Monocytes % (Manual) Eosinophils % (Manual) Platelet Evaluation Retic Count 0.10 L Haptoglobin 321.1 H PT INR APTT Fibrinogen Fibrin Degrad Products pCO2 pO2 HCO3 ABG pH ABG Total CO2 ABG O2 Saturation ABG O2 Content ABG Base Excess ABG Hemoglobin ABG Carboxyhemoglobin POC ABG HHb (Measured) ABG Methemoglobin ABG O2 Capacity Hgb O2 Saturation FiO2 Sodium Potassium Chloride Carbon Dioxide Anion Gap BUN Creatinine Est GFR ( Amer) Est GFR (Non-Af Amer) Random Glucose Calcium Phosphorus Magnesium Total Bilirubin Direct Bilirubin GGT 66 AST ALT Alkaline Phosphatase Lactate Dehydrogenase 487 NT-Pro-B Natriuret Pep Total Protein Albumin Globulin Albumin/Globulin Ratio Fluid Source Fluid Appearance Fluid WBC Fluid RBC Fluid Tot Cell Count Fluid Mononuclear Cell Fl Polymorphonucl Cell Fluid Comment CMV Specimen Source CMV DNA Quant PCR CMV Qnt PCR log IU/mL HIV 1&2 Ag/Ab, 4th Gen Blood Type Antibody Screen Crossmatch BBK History Checked 08/14/18 08/14/18 10:00 13:24 WBC RBC Hgb Hct MCV MCH MCHC RDW Plt Count Manual Plt Count MPV Neut % (Auto) Lymph % (Auto) [place] % (Auto) Eos % (Auto) Baso % (Auto) Lymph # (Auto) [place] # (Auto) Eos # (Auto) Baso # (Auto) Absolute Neuts (auto) Neutrophils % (Manual) Lymphocytes % (Manual) Atypical Lymphs % Monocytes % (Manual) Eosinophils % (Manual) Platelet Evaluation Retic Count Haptoglobin PT INR APTT Fibrinogen Fibrin Degrad Products pCO2 pO2 HCO3 ABG pH ABG Total CO2 ABG O2 Saturation ABG O2 Content ABG Base Excess ABG Hemoglobin ABG Carboxyhemoglobin POC ABG HHb (Measured) ABG Methemoglobin ABG O2 Capacity Hgb O2 Saturation FiO2 Sodium Potassium Chloride Carbon Dioxide Anion Gap BUN Creatinine Est GFR ( Amer) Est GFR (Non-Af Amer) Random Glucose Calcium Phosphorus Magnesium Total Bilirubin Direct Bilirubin GGT AST ALT Alkaline Phosphatase Lactate Dehydrogenase NT-Pro-B Natriuret Pep Total Protein Albumin Globulin Albumin/Globulin Ratio Fluid Source Peritoneal/ascites Fluid Appearance Bloody Fluid WBC 40.0 Fluid RBC 79793.0 H Fluid Tot Cell Count 100 H Fluid Mononuclear Cell 73.3 H Fl Polymorphonucl Cell 26.7 H Fluid Comment Cloudy CMV Specimen Source CMV DNA Quant PCR CMV Qnt PCR log IU/mL HIV 1&2 Ag/Ab, 4th Gen Blood Type B POSITIVE Antibody Screen Negative Crossmatch See Detail BBK History Checked Patient has bt Radiology Impressions: Radiology Impressions Chest X-Ray 08/13/18 17:14 IMPRESSION: No significant interval change compared to the prior examination(s). Chest X-Ray 08/14/18 07:00 IMPRESSION: Endotracheal tube and nasogastric tube remain in satisfactory position. There is no change in the bilateral alveolar and interstitial infiltrates. Addendum Addendum: 08/14/18 17:00 MICU Attending Addendum: Patient seen and examined with housestaff, case discussed on rounds. I agree with resident note above with the following additions/exceptions: 53 F PMH of MDS, AML, sickle cell disease, lung cancer, breast cancer brought to icu 08/13 for acute respiratory failure and hemoptysis. 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 Will hold off on adding further agents such as cyclophos/ritux as no defined role at this time and she is improving with her oxygenation or [place] not getting worse. If needed, steroid should be re- ordered for tomorrow and max 3 days. Rest of care as per resident note above Nelson Martinez MD Attending Pulmonary Critical Care Sleep Medicine
[2018-08-14 09:17] LABS: GAMMA GLUTAMYL TRANSPEPTIDASE 66 U/L (8-78)
--- NOTE | 2018-08-14 09:20 | CP.PCM.PN ---
Subjective - Date & Time of Evaluation Date of Evaluation: 08/14/18 Time of Evaluation: 09:18 - Subjective Subjective: Christopher Roberson DO, PGY-1 Hematology/Oncology Progress Note for Dr. Lopez Patient was seen and examined at bedside this AM. She remains intubated, sedated on propofol and fentanyl drips. She was intermittently hypotensive overnight requiring pressor support. She is s/p bronchoscopy yesterday evening which found R-sided diffuse alveolar hemorrhage. Objective - Vital Signs/Intake and Output Vital Signs (last 24 hours): Temp Pulse Resp BP Pulse Ox 98.4 F 106 H 24 98/52 L 100 08/13/18 16:59 08/14/18 02:00 08/13/18 14:00 08/13/18 18:14 08/13/18 16:59 Intake and Output: 08/14/18 08/14/18 06:59 18:59 Intake Total 1970 Output Total 800 Balance 1170 - Medications Medications: Current Medications Albuterol/Ipratropium (Duoneb 3 Mg/0.5 Mg (3 Ml) Ud) 3 ml IH [id number] PRN PRN Reason: Shortness of Breath Last Admin: 08/12/18 03:00 Dose: 3 ml Amlodipine Besylate (Norvasc) 10 mg PO DAILY [facility] Last Admin: 08/13/18 10:00 Dose: Not Given Arformoterol Tartrate (Brovana) 15 mcg IH [id number] [facility] Last Admin: 08/14/18 07:48 Dose: 15 mcg Atenolol (Tenormin) 50 mg PO DAILY [facility] Last Admin: 08/13/18 10:00 Dose: Not Given Budesonide (Pulmicort Respules) 0.5 mg IH BIDRESP KAYLEIGH Last Admin: 08/14/18 07:48 Dose: 0.5 mg Clonazepam (Klonopin) 0.5 mg PO BID [facility]; Protocol Last Admin: 08/13/18 12:42 Dose: Not Given Diphenhydramine HCl (Benadryl) 25 mg IVP Q8H PRN PRN Reason: Allergy symptoms Ergocalciferol (Drisdol 50,000 Intl Units Cap) 1 cap PO SUN [facility] Last Admin: 08/12/18 09:24 Dose: 1 cap Fentanyl Citrate (Fentanyl Citrate/Sodium Chloride 1 Mg/100 Ml) 1,000 mcg in 100 mls @ 7.5 mls/hr IV .[id number] PRN; Protocol PRN Reason: TITRATE PER MD ORDER Last Admin: 08/13/18 23:44 Dose: 75 mcg/hr, 7.5 mls/hr Acetaminophen (Ofirmev) 1,000 mg in 100 mls @ 400 mls/hr IVPB Q8H PRN PRN Reason: fever>101.1 Stop: 08/15/18 12:07 Last Admin: 08/13/18 23:23 Dose: 400 mls/hr Propofol (Diprivan) 1,000 mg in 100 mls @ 1.591 mls/hr IV .Q24H PRN; Protocol PRN Reason: TITRATE PER MD ORDER Last Admin: 08/14/18 00:15 Dose: 50 mcg/kg/min, 15.908 mls/hr Doxycycline Hyclate 100 mg/ (Sodium Chloride) 100 mls @ 100 mls/hr IVPB Q12 KAYLEIGH; Protocol Stop: 08/20/18 13:31 Last Admin: 08/13/18 23:26 Dose: 100 mls/hr Piperacillin Sod/Tazobactam Sod (Zosyn 3.375 In Ns 100ml) 100 mls @ 25 mls/hr IVPB Q8 KAYLEIGH; Protocol Stop: 08/20/18 14:01 Last Admin: 08/14/18 06:50 Dose: 25 mls/hr Vancomycin HCl (Vancomycin 1gm) 1 gm in 250 mls @ 167 mls/hr IVPB 0330,1530 KAYLEIGH; Protocol Last Admin: 08/14/18 03:30 Dose: 167 mls/hr Sodium Chloride (Sodium Chloride 0.9%) 1,000 mls @ 100 mls/hr IV .Q10H KAYLEIGH Last Admin: 08/14/18 04:34 Dose: 100 mls/hr Potassium Chloride (Potassium Chloride 20 Meq/100 Ml) 20 meq in 100 mls @ 50 mls/hr IVPB Q2H KAYLEIGH Stop: 08/14/18 11:14 Last Admin: 08/14/18 08:21 Dose: 50 mls/hr Ibuprofen (Motrin Tab) 400 mg PO Q6H PRN PRN Reason: Fever >100.4 F Loratadine (Claritin) 10 mg PO DAILY [facility] Last Admin: 08/13/18 10:00 Dose: Not Given Losartan Potassium (Cozaar) 50 mg PO QPM [facility] Last Admin: 08/13/18 18:14 Dose: Not Given Magnesium Oxide (Mag-Ox) 400 mg PO BID [facility] Last Admin: 08/13/18 18:00 Dose: Not Given Metoprolol Tartrate (Lopressor) 5 mg IVP ONCE PRN PRN Reason: HR above 130's Last Admin: 08/13/18 12:49 Dose: 5 mg Montelukast Sodium (Singulair) 10 mg PO DAILY [facility] Last Admin: 08/13/18 10:00 Dose: Not Given Mupirocin (Bactroban Ointment) 1 gm TOP BID [facility] Last Admin: 08/13/18 21:12 Dose: 1 unit Nicotine (Nicoderm Cq) 1 patch TD DAILY [facility] Last Admin: 08/12/18 09:26 Dose: Not Given Non-Formulary Medication (Vitamin B Complex [Super B-50 Complex]) 1 cap PO DAILY [facility] Last Admin: 08/13/18 10:00 Dose: Not Given Ondansetron HCl (Zofran Inj) 4 mg IVP Q6H PRN PRN Reason: Nausea/Vomiting Last Admin: 08/10/18 02:02 Dose: 4 mg Oxycodone HCl (Oxycodone Immediate Release Tab) 5 mg PO Q8H PRN PRN Reason: Pain, severe (8-10) Last Admin: 08/13/18 04:51 Dose: 5 mg Pantoprazole Sodium (Protonix Inj) 40 mg IVP DAILY [facility] Last Admin: 08/13/18 12:49 Dose: 40 mg Potassium Chloride (K-Dur 20 Meq Er Tab) 20 meq PO DAILY [facility] Last Admin: 08/13/18 14:00 Dose: 20 meq Sodium Chloride ([place] Nasal [place]) 0 ml NS QID [facility] Last Admin: 08/13/18 23:40 Dose: Not Given Tiotropium [place] (Spiriva) 18 mcg INH DAILY [facility] Last Admin: 08/12/18 09:23 Dose: 18 mcg Tramadol HCl (Ultram) 50 mg PO TID PRN PRN Reason: Pain, moderate (4-7) Tranexamic Acid (Tranexamic Acid) 500 mg IH TIDRESP [facility] Last Admin: 04/02/19 08:44 Dose: 100 mg - Labs Labs: 08/14/18 05:40 08/14/18 05:40 PT 24.0 SECONDS (9.4-12.5) H 08/13/18 17:10 INR 2.16 08/13/18 17:10 APTT 30.6 Seconds (26.9-38.3) 08/13/18 17:10 - Head Exam Head Exam: ATRAUMATIC, NORMOCEPHALIC - Eye Exam Eye Exam: EOMI, PERRL - ENT Exam ENT Exam: Mucous Membranes Moist - Neck Exam Neck Exam: absent: Lymphadenopathy - Respiratory Exam Respiratory Exam: Rhonchi (coarse breath sounds b/l improved from yesterday). absent: Rales, Wheezes Additional comments: on ventilator, breath sounds auscultated b/l - Cardiovascular Exam Cardiovascular Exam: Tachycardia, +S1, +S2. absent: Gallop, Rubs, Murmur - GI/Abdominal Exam GI & Abdominal Exam: Soft, Normal Bowel Sounds. absent: Guarding, Rebound - Extremities Exam Extremities Exam: absent: Joint Swelling, Pedal Edema - Neurological Exam Additional comments: intubated, sedated - Skin Skin Exam: Dry, Warm Assessment and Plan - Assessment and Plan (Free Text) Assessment: 53 yo F with PMH of accelerated MDS (previously on cyclical therapy with cytaratine currently on hold secondary to previous hospital admission for PNA and acute drops in blood counts), immunosuppression, lung cancer (s/p lobectomy), R breast mastectomy, COPD, and endocarditis presented to infusion clinic prior to admission for repeat platelet transfusion. She appeared acutely ill at that time with Tmax of 101.2 and tachycardic. She was subsequently sent to ED for evaluation, was admitted, and continues to be on broad spectrum abx. Yesterday morning she was noted to have worsening tachypnea and hypoxemia, prompting her transfer to MICU. 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 Flow cytometry results completed on admission show high blast population consistent with blast crisis Fibrinogen elevated, fibrin degradation products negative so DIC is less likely Recommend transfusion of additional unit of platelets and 2 u PRBCs Would also recommend one time IVIG treatment Continue to monitor CBC q12h Has received decitabine therapy in the past, may also consider venetoclax treatment if stabilizes Guarded prognosis Palliative care following, all recs appreciated Hypokalemia Has been persistent despite replacement Recheck BMP in afternoon Can be seen with AML blast crises Will consult nephrology for additional input LUE DVT Likely 2/2 PICC line on top of hypercoaguable state from hematologic malignancy Lovenox held for concern of worsening thrombocytopenia Normocytic anemia 2/2 MDS which has now progressed to AML Transfuse 2 u PRBCs, recheck H/H in evening and again in AM Fever, tachycardia, tachypnea Suspect persistent fever is in part 2/2 blast crisis Continue abx, ventilator management per ID and ICU [facility] scheduled to control fever ID following, all recs appreciated Thank you for this interesting consult, we will continue to follow. Case and plan reviewed and discussed with my attending Dr. John Roberson, DO IM Resident PGY-1
--- NOTE | 2018-08-14 09:55 | RAD ---
Date of service: 08/14/2018 HISTORY: folloow up infiltrate COMPARISON: 08/13/2018 TECHNIQUE: 1 view obtained. FINDINGS: LUNGS: Endotracheal tube and nasogastric tube remain in satisfactory position. There is no change in the bilateral alveolar and interstitial infiltrates. PLEURA: No significant pleural effusion identified, no pneumothorax apparent. CARDIOVASCULAR: No aortic atherosclerotic calcification present. Normal cardiac size. No pulmonary vascular congestion. OSSEOUS STRUCTURES: No significant abnormalities. VISUALIZED UPPER ABDOMEN: Normal. OTHER FINDINGS: None. IMPRESSION: Endotracheal tube and nasogastric tube remain in satisfactory position. There is no change in the bilateral alveolar and interstitial infiltrates.
[2018-08-14] MEDS: Mupirocin 2% Ointment 15 GM TUBE TOP SCH ×2 (10:55→18:43)
[2018-08-14] MEDS: Potassium Chloride 20 mEq ER Tab PO SCH (10:55)
[2018-08-14] MEDS: Magnesium Oxide 400 mg Tab UD PO SCH ×2 (10:55→18:46)
[2018-08-14] MEDS: Non Formulary Medication (Vitamin B Complex [Super B-50 Complex] 1 CAP) PO SCH (10:59)
[2018-08-14 12:03] LABS: SOURCE: Plasma
[2018-08-14] MEDS ORDERED: Immune Globulin 100 MG/ML 30 GM in Premixed IV 1 EA IV ONE (12:11)
--- NOTE | 2018-08-14 12:48 | PN ---
DATE: 08/14/2018 PULMONARY PROGRESS NOTE REFERRING PHYSICIAN: August Lara MD SUBJECTIVE: The patient is seen lying in bed, remains intubated and sedated. Bronchoscopy was performed yesterday. No hemoptysis, hematemesis, hematuria, diarrhea, or leg swelling reported. OBJECTIVE: VITAL SIGNS: Blood pressure 108/53, pulse 126, temperature 100.2 and oxygen saturation 100%. HEENT: Endotracheal tube in place. Moist mucous membranes. RESPIRATORY: Few rhonchi bilaterally. CARDIOVASCULAR: S1 and S2, tachycardiac. ABDOMEN: Soft. No distention. No organomegaly. EXTREMITIES: No bilateral lower extremity edema. Left upper extremity edema still noted. NEUROLOGIC: Intubated, sedated. MEDICATIONS: Reviewed. Acetaminophen 1000 mg at 400 mL per hour every 8 hours p.r.n., DuoNeb 3 mL inhalation every 4 hours p.r.n., Norvasc 10 mg daily, Brovana 15 mcg inhalation every 12 hours, atenolol 50 mg daily, Pulmicort 0.5 mg twice a day, Klonopin 0.5 mg twice a day on hold, Benadryl 25 mg IV push every 8 hours p.r.n., doxycycline 100 mg every 12 hours, ergocalciferol 50,000 units weekly, fentanyl 1000 mcg in 100 mL at 7.5 mL per hour IV, Motrin 400 mg every 6 hours p.r.n. on hold, Claritin 10 mg daily on hold, Cozaar 50 mg in the evening, magnesium oxide 400 mg twice a day, Lopressor 5 mg IV push one time dose, Singulair 10 mg daily, Bactroban topically twice a day to affected area, nicotine patch on hold, vitamin B complex daily, Zofran 4 mg every 6 hours p.r.n., oxycodone 5 mg every 8 hours p.r.n., Protonix 40 mg IV push daily, Zosyn 3.375 g every 8 hours, potassium chloride 20 mEq daily in a 100 mL at 50 mL per hour two bags ordered, propofol 1000 mg in 100 mL at 1.591 mL per hour, [place] Nasal [place] 4 times a day, sodium chloride 0.9% a 1000 mL at 100 mL per hour, Spiriva on hold, Ultram 50 mg p.o. three times a day p.r.n., tranexamic acid 500 mg inhalation three times a day and vancomycin 1 g twice a day. LABORATORY DATA: Reviewed. WBC 4, RBC 2.57, hemoglobin 7.6, hematocrit 22.7, and platelets 23. PT 24, INR 2.16, APTT 30.6 and fibrinogen 689. Fibrin degradation products greater than 40. PCO2 of 45, PO2 of 52, HCO3 of 20.7, ABG, pH 7.27 on FiO2 of 60. Sodium 147, potassium 2.7, chloride 115, carbon dioxide 23, anion gap 12, BUN 21, creatinine 0.7, GFR greater than 60, random glucose 82, calcium 7.7, phosphorus 4.6, magnesium 2.0, total bilirubin 5.7, direct bilirubin 4.9, 66, AST 26, ALT 25, alkaline phosphatase 74. ProBNP 53,000, total protein 5.0, albumin 3.1, globulin 3.1, albumin-globulin ration 0.7 and procalcitonin 43.21. Kailey-stain; serum culture shows few polymorphonuclear wbc's, few epithelial cells, few Gram-positive cocci in chain, culture pending. Blood cultures preliminary no growth after 48 hours. Chest x-ray show endotracheal tube and nasogastric tube in satisfactory position. No change in bilateral alveolar and interstitial infiltrates. IMPRESSION AND PLAN: Myelodysplasia, history of lung cancer requiring lobectomy in the past, thrombocytopenia, sickle cell disease, anemia, chronic lung disease, left upper extremity deep venous thrombosis. The patient had bronchoscopy done yesterday, which showed alveoloar hemorrhage. Procalcitonin remains positive, but is improving. Continue broad spectrum antibiotics. Agree with increasing FiO2 from 60 to 70, maintain pulse ox above 90%. Followup platelets. No anticoagulation at this time, understanding the risk versus benefits of anticoagulation in this patient. The patient has poor prognosis. Continue aggressive measures for now. The patient is currently being followed by multiple specialities. Continue inhaled bronchodilators, gastric prophylaxis. Sequential compression devices to bilateral lower extremities for deep venous thrombosis prophylaxis. We will ordered ABG and chest x-ray. Followup on CBC and CMP in the morning. We will discontinue Brovana and place the patient on Atrovent and Xopenex due to persistent tachycardia. Critical care time spent more than 35 minutes. This patient was seen and examined with Dr. Maurer. Discussed assessment and plan as described above. This patient was seen and examined with Henry Marquez, nurse practitioner. Discussed assessment and plan as described above. Thank you for this consult. We will follow with you. Henry Marquez APN Solange Maurer MD
[2018-08-14 13:25] LABS: BODY FLUID TYPE PERITONEAL/ASCITES
--- NOTE | 2018-08-14 13:26 | CP.PCM.PN ---
Subjective - Date & Time of Evaluation Date of Evaluation: 08/14/18 Time of Evaluation: 13:00 - Subjective Subjective: intubated, sedated. no acute changes Objective - Vital Signs/Intake and Output Vital Signs (last 24 hours): Temp Pulse Resp BP Pulse Ox 99.3 F 128 H 24 107/45 L 96 08/14/18 13:15 08/14/18 13:15 08/13/18 14:00 08/14/18 13:00 08/14/18 13:15 Intake and Output: 08/14/18 08/14/18 06:59 18:59 Intake Total 1970 Output Total 800 Balance 1170 - Medications Medications: Current Medications Albuterol/Ipratropium (Duoneb 3 Mg/0.5 Mg (3 Ml) Ud) 3 ml IH [id number] PRN PRN Reason: Shortness of Breath Last Admin: 08/12/18 03:00 Dose: 3 ml Amlodipine Besylate (Norvasc) 10 mg PO DAILY [facility] Last Admin: 08/13/18 10:00 Dose: Not Given Atenolol (Tenormin) 50 mg PO DAILY [facility] Last Admin: 08/14/18 10:58 Dose: Not Given Budesonide (Pulmicort Respules) 0.5 mg IH BIDRESP [facility] Last Admin: 08/14/18 07:48 Dose: 0.5 mg Clonazepam (Klonopin) 0.5 mg PO BID [facility]; Protocol Last Admin: 08/13/18 12:42 Dose: Not Given Diphenhydramine HCl (Benadryl) 25 mg IVP Q8H PRN PRN Reason: Allergy symptoms Ergocalciferol (Drisdol 50,000 Intl Units Cap) 1 cap PO SUN [facility] Last Admin: 08/12/18 09:24 Dose: 1 cap Fentanyl Citrate (Fentanyl Citrate/Sodium Chloride 1 Mg/100 Ml) 1,000 mcg in 100 mls @ 7.5 mls/hr IV .[id number] PRN; Protocol PRN Reason: TITRATE PER MD ORDER Last Admin: 08/13/18 23:44 Dose: 75 mcg/hr, 7.5 mls/hr Acetaminophen (Ofirmev) 1,000 mg in 100 mls @ 400 mls/hr IVPB Q8H PRN PRN Reason: fever>101.1 Stop: 08/15/18 12:07 Last Admin: 08/14/18 10:56 Dose: 400 mls/hr Propofol (Diprivan) 1,000 mg in 100 mls @ 1.591 mls/hr IV .Q24H PRN; Protocol PRN Reason: TITRATE PER MD ORDER Last Admin: 08/14/18 00:15 Dose: 50 mcg/kg/min, 15.908 mls/hr Doxycycline Hyclate 100 mg/ (Sodium Chloride) 100 mls @ 100 mls/hr IVPB Q12 [facility]; Protocol Stop: 08/20/18 13:31 Last Admin: 08/14/18 10:58 Dose: 100 mls/hr Piperacillin Sod/Tazobactam Sod (Zosyn 3.375 In Ns 100ml) 100 mls @ 25 mls/hr IVPB Q8 [facility]; Protocol Stop: 08/20/18 14:01 Last Admin: 08/14/18 06:50 Dose: 25 mls/hr Vancomycin HCl (Vancomycin 1gm) 1 gm in 250 mls @ 167 mls/hr IVPB 0330,1530 [facility]; Protocol Last Admin: 08/14/18 03:30 Dose: 167 mls/hr Sodium Chloride (Sodium Chloride 0.9%) 1,000 mls @ 100 mls/hr IV .Q10H [facility] Last Admin: 08/14/18 04:34 Dose: 100 mls/hr NOREPINEPHRINE BIT/0.9 % NACL (Levophed 4 Mg/ 250 Ml Ns Premixed) 4 mg in 250 mls @ 15 mls/hr IV .[id number] PRN; Protocol PRN Reason: TITRATE PER MD ORDER Last Admin: 08/14/18 07:30 Dose: 4 mcg/min, 15 mls/hr Immune Globulin 30 gm/ (Miscellaneous) 300 mls @ 50 mls/hr IV ONCE ONE Stop: 08/14/18 18:10 Ibuprofen (Motrin Tab) 400 mg PO Q6H PRN PRN Reason: Fever >100.4 F Ipratropium [place] (Atrovent) 0.5 mg IH TIDRESP [facility] Levalbuterol HCl (Xopenex) 0.63 mg IH TIDRESP [facility] Loratadine (Claritin) 10 mg PO DAILY [facility] Last Admin: 08/13/18 10:00 Dose: Not Given Losartan Potassium (Cozaar) 50 mg PO QPM [facility] Last Admin: 08/13/18 18:14 Dose: Not Given Magnesium Oxide (Mag-Ox) 400 mg PO BID [facility] Last Admin: 08/14/18 10:55 Dose: 400 mg Metoprolol Tartrate (Lopressor) 5 mg IVP ONCE PRN PRN Reason: HR above 130's Last Admin: 08/13/18 12:49 Dose: 5 mg Montelukast Sodium (Singulair) 10 mg PO DAILY [facility] Last Admin: 08/14/18 10:58 Dose: Not Given Mupirocin (Bactroban Ointment) 1 gm TOP BID [facility] Last Admin: 08/14/18 10:55 Dose: 1 unit Nicotine (Nicoderm Cq) 1 patch TD DAILY [facility] Last Admin: 08/12/18 09:26 Dose: Not Given Non-Formulary Medication (Vitamin B Complex [Super B-50 Complex]) 1 cap PO DAILY [facility] Last Admin: 08/14/18 10:59 Dose: Not Given Ondansetron HCl (Zofran Inj) 4 mg IVP Q6H PRN PRN Reason: Nausea/Vomiting Last Admin: 08/10/18 02:02 Dose: 4 mg Oxycodone HCl (Oxycodone Immediate Release Tab) 5 mg PO Q8H PRN PRN Reason: Pain, severe (8-10) Last Admin: 08/13/18 04:51 Dose: 5 mg Pantoprazole Sodium (Protonix Inj) 40 mg IVP DAILY [facility] Last Admin: 08/14/18 10:57 Dose: 40 mg Potassium Chloride (K-Dur 20 Meq Er Tab) 20 meq PO DAILY [facility] Last Admin: 08/14/18 10:55 Dose: 20 meq Sodium Chloride ([place] Nasal [place]) 0 ml NS QID [facility] Last Admin: 08/14/18 10:56 Dose: Not Given Tramadol HCl (Ultram) 50 mg PO TID PRN PRN Reason: Pain, moderate (4-7) Tranexamic Acid (Tranexamic Acid) 500 mg IH TIDRESP [facility] Last Admin: 08/14/18 08:44 Dose: 100 mg - Labs Labs: 08/14/18 05:40 08/14/18 05:40 PT 24.0 SECONDS (9.4-12.5) H 08/13/18 17:10 INR 2.16 08/13/18 17:10 APTT 30.6 Seconds (26.9-38.3) 08/13/18 17:10 - Constitutional Appears: Chronically Ill - Eye Exam Eye Exam: Normal appearance, PERRL - ENT Exam ENT Exam: Mucous Membranes Moist - Respiratory Exam Respiratory Exam: Decreased Breath Sounds - Cardiovascular Exam Cardiovascular Exam: Tachycardia, +S1, +S2 - GI/Abdominal Exam GI & Abdominal Exam: Soft, Hypoactive Bowel Sounds - Extremities Exam Extremities Exam: Normal Capillary Refill - Neurological Exam Neurological Exam: Altered - Skin Skin Exam: Dry, Pallor Assessment and Plan - Assessment and Plan (Free Text) Assessment: 53 year old female with history of MDS, lung cancer, breast cancer, COPD, and endocarditis who is admitted with fever, LUE DVT,hypotension, pancytopenia, respiratory failure,alveolar hemorrhage. I made several visits to patient's room, family not at bedside. Unable to reach daughter Kee via phone/unable to leave voice mail. Intent is to discuss goals of care. Plan: Goals of care Hypotension: Levophed LUE DVT: Continue Lovenox Thompson colitis: C diff /thompson cultures/stool studies negative. Continue Doxycycline, Zosyn, Vancomycin Respiratory failure/COPD: s/p bronchoscopy re alveolar hemorrhage. Intubated, monitor ABG's, continue duonebs,brovana, xoponex. Pancytopneia:s/p FFP, PRBC's monitor CBC.
[2018-08-14] MEDS: Ipratropium 0.02% Inhal Soln (0.5 mg/2.5 ml) UD IH SCH ×2 (13:28→19:42)
[2018-08-14] MEDS: Levalbuterol 0.63 MG/3 ML Inhal Soln UD IH SCH ×2 (13:28→19:43)
[2018-08-14] MEDS: Fentanyl 1000mcg/100ml NS 1,000 MCG/100 ML BAG IV PRN (13:55)
[2018-08-14 14:01] LABS: BF GROSS APPEARANCE BLOODY (CLEAR); BODY FLUID TOTAL COUNT 100 (0-0)
--- NOTE | 2018-08-14 15:08 | CP.PCM.PN ---
<Scar Bermeo - Last Filed: 08/14/18 15:05> Subjective - Date & Time of Evaluation Date of Evaluation: 08/14/18 Time of Evaluation: 09:35 - Subjective Subjective: Scar Bermeo D.O. PGY-3, Internal Medicine Resident, Infectious Disease Progress Note 53-year-old female with a past medical history of myelodysplastic syndrome status post chemotherapy, lung cancer status post lobectomy, right breast mastec leonard, chronic obstructive pulmonary disease, and endocarditis who presented for platelet transfusion yesterday at the infusion clinic and was found to be febrile with a fever of 101.2. Infectious disease consultation was requested for his fever. Patient was seen and examined at bedside. Intubated and sedated. Does hear, nods when asked questions. Objective - Vital Signs/Intake and Output Vital Signs (last 24 hours): Temp Pulse Resp BP Pulse Ox 99.5 F 122 H 24 81/34 L 99 08/14/18 14:14 08/14/18 14:14 08/13/18 14:00 08/14/18 14:15 08/14/18 14:14 Intake and Output: 08/14/18 08/14/18 06:59 18:59 Intake Total 1970 100 Output Total 800 Balance 1170 100 - Medications Medications: Current Medications Albuterol/Ipratropium (Duoneb 3 Mg/0.5 Mg (3 Ml) Ud) 3 ml IH [id number] PRN PRN Reason: Shortness of Breath Last Admin: 08/12/18 03:00 Dose: 3 ml Amlodipine Besylate (Norvasc) 10 mg PO DAILY [facility] Last Admin: 08/13/18 10:00 Dose: Not Given Atenolol (Tenormin) 50 mg PO DAILY [facility] Last Admin: 08/14/18 10:58 Dose: Not Given Budesonide (Pulmicort Respules) 0.5 mg IH BIDRESP [facility] Last Admin: 08/14/18 07:48 Dose: 0.5 mg Clonazepam (Klonopin) 0.5 mg PO BID [facility]; Protocol Last Admin: 08/13/18 12:42 Dose: Not Given Diphenhydramine HCl (Benadryl) 25 mg IVP Q8H PRN PRN Reason: Allergy symptoms Ergocalciferol (Drisdol 50,000 Intl Units Cap) 1 cap PO SUN [facility] Last Admin: 08/12/18 09:24 Dose: 1 cap Fentanyl Citrate (Fentanyl Citrate/Sodium Chloride 1 Mg/100 Ml) 1,000 mcg in 100 mls @ 7.5 mls/hr IV .[id number] PRN; Protocol PRN Reason: TITRATE PER MD ORDER Last Admin: 08/14/18 13:55 Dose: 75 mcg/hr, 7.5 mls/hr Acetaminophen (Ofirmev) 1,000 mg in 100 mls @ 400 mls/hr IVPB Q8H PRN PRN Reason: fever>101.1 Stop: 08/15/18 12:07 Last Admin: 08/14/18 10:56 Dose: 400 mls/hr Propofol (Diprivan) 1,000 mg in 100 mls @ 1.591 mls/hr IV .Q24H PRN; Protocol PRN Reason: TITRATE PER MD ORDER Last Admin: 08/14/18 00:15 Dose: 50 mcg/kg/min, 15.908 mls/hr Doxycycline Hyclate 100 mg/ (Sodium Chloride) 100 mls @ 100 mls/hr IVPB Q12 [facility]; Protocol Stop: 08/20/18 13:31 Last Admin: 08/14/18 10:58 Dose: 100 mls/hr Piperacillin Sod/Tazobactam Sod (Zosyn 3.375 In Ns 100ml) 100 mls @ 25 mls/hr IVPB Q8 [facility]; Protocol Stop: 08/20/18 14:01 Last Admin: 08/14/18 06:50 Dose: 25 mls/hr Vancomycin HCl (Vancomycin 1gm) 1 gm in 250 mls @ 167 mls/hr IVPB 0330,1530 [facility]; Protocol Last Admin: 08/14/18 03:30 Dose: 167 mls/hr Sodium Chloride (Sodium Chloride 0.9%) 1,000 mls @ 100 mls/hr IV .Q10H [facility] Last Admin: 08/14/18 04:34 Dose: 100 mls/hr NOREPINEPHRINE BIT/0.9 % NACL (Levophed 4 Mg/ 250 Ml Ns Premixed) 4 mg in 250 mls @ 15 mls/hr IV .[id number] PRN; Protocol PRN Reason: TITRATE PER MD ORDER Last Admin: 08/14/18 07:30 Dose: 4 mcg/min, 15 mls/hr Immune Globulin 30 gm/ (Miscellaneous) 300 mls @ 50 mls/hr IV ONCE ONE Stop: 08/14/18 18:10 Potassium Chloride 20 meq/ (Sodium Chloride) 1,010 mls @ 100 mls/hr IV .Q10H6M [facility] Ibuprofen (Motrin Tab) 400 mg PO Q6H PRN PRN Reason: Fever >100.4 F Ipratropium [place] (Atrovent) 0.5 mg IH TIDRESP [facility] Last Admin: 08/14/18 13:28 Dose: 0.5 mg Levalbuterol HCl (Xopenex) 0.63 mg IH TIDRESP [facility] Last Admin: 08/14/18 13:28 Dose: 0.63 mg Loratadine (Claritin) 10 mg PO DAILY [facility] Last Admin: 08/13/18 10:00 Dose: Not Given Losartan Potassium (Cozaar) 50 mg PO QPM [facility] Last Admin: 08/13/18 18:14 Dose: Not Given Magnesium Oxide (Mag-Ox) 400 mg PO BID [facility] Last Admin: 08/14/18 10:55 Dose: 400 mg Metoprolol Tartrate (Lopressor) 5 mg IVP ONCE PRN PRN Reason: HR above 130's Last Admin: 08/13/18 12:49 Dose: 5 mg Montelukast Sodium (Singulair) 10 mg PO DAILY [facility] Last Admin: 08/14/18 10:58 Dose: Not Given Mupirocin (Bactroban Ointment) 1 gm TOP BID [facility] Last Admin: 08/14/18 10:55 Dose: 1 unit Nicotine (Nicoderm Cq) 1 patch TD DAILY [facility] Last Admin: 08/12/18 09:26 Dose: Not Given Non-Formulary Medication (Vitamin B Complex [Super B-50 Complex]) 1 cap PO DAILY [facility] Last Admin: 08/14/18 10:59 Dose: Not Given Ondansetron HCl (Zofran Inj) 4 mg IVP Q6H PRN PRN Reason: Nausea/Vomiting Last Admin: 08/10/18 02:02 Dose: 4 mg Oxycodone HCl (Oxycodone Immediate Release Tab) 5 mg PO Q8H PRN PRN Reason: Pain, severe (8-10) Last Admin: 08/13/18 04:51 Dose: 5 mg Pantoprazole Sodium (Protonix Inj) 40 mg IVP DAILY [facility] Last Admin: 08/14/18 10:57 Dose: 40 mg Potassium Chloride (K-Dur 20 Meq Er Tab) 20 meq PO DAILY [facility] Last Admin: 08/14/18 10:55 Dose: 20 meq Sodium Chloride ([place] Nasal [place]) 0 ml NS QID [facility] Last Admin: 08/14/18 14:21 Dose: Not Given Tramadol HCl (Ultram) 50 mg PO TID PRN PRN Reason: Pain, moderate (4-7) Tranexamic Acid (Tranexamic Acid) 500 mg IH TIDRESP [facility] Last Admin: 08/14/18 13:31 Dose: 100 mg - Labs Labs: 08/14/18 05:40 08/14/18 05:40 PT 24.0 SECONDS (9.4-12.5) H 08/13/18 17:10 INR 2.16 08/13/18 17:10 APTT 30.6 Seconds (26.9-38.3) 08/13/18 17:10 - Constitutional Appears: Chronically Ill, intubated - Head Exam Head Exam: ATRAUMATIC, NC - Eye Exam Eye Exam: EOMI, PERRL. absent: Scleral icterus - ENT Exam ENT Exam: Mucous Membranes Moist - Neck Exam Neck exam: Positive for: Normal Inspection. Negative for: Lymphadenopathy - Respiratory Exam Respiratory Exam: short of breath, using accessory muscles - Cardiovascular Exam Cardiovascular Exam: tachycardic, +S1, +S2. absent: Gallop, Rubs - GI/Abdominal Exam GI & Abdominal Exam: mildly tender throughout, soft - Extremities Exam Extremities exam: Negative for: calf tenderness, pedal edema - Neurological Exam Neurological exam: sedated - Skin Skin Exam: Dry, Warm Assessment and Plan - Assessment and Plan (Free Text) Assessment: 53-year-old female with a past medical history of myelodysplastic syndrome status post chemotherapy, lung cancer status post lobectomy, right breast mastectomy, chronic obstructive pulmonary disease, and endocarditis who presented for platelet transfusion yesterday at the infusion clinic and was found to be febrile with a fever of 101.2. Infectious disease consultation was requested for his fever. Plan: New sepsis likely 2/2 HCAP Sepsis likely 2/2 pancolitis LUE DVT 2/2 PICC line Immunocompromise state High-grade myelodysplastic syndrome with thrombocytopenia Lung cancer status post lobectomy Fevers downtrending Bronchoscopy revealed DAH Continue broad coverage with doxy/zosyn/vanco day 2 Palliative care following, recs appreciated Hem/Onc input reviewed and appreciated Discussed with ICU team Prognosis continues to be very guarded at this time We will follow with you Patient was seen and examined and case to be discussed with attending physician Thank you for the pleasure participating in the care of this interesting patient <Terrance Juan - Last Filed: 08/14/18 17:28> Objective - Vital Signs/Intake and Output Vital Signs (last 24 hours): Temp Pulse Resp BP Pulse Ox 99.5 F 122 H 24 81/34 L 99 08/14/18 14:14 08/14/18 14:14 08/13/18 14:00 08/14/18 14:15 08/14/18 14:14 Intake and Output: 08/14/18 08/14/18 06:59 18:59 Intake Total 1970 100 Output Total 800 Balance 1170 100 - Medications Medications: Current Medications Albuterol/Ipratropium (Duoneb 3 Mg/0.5 Mg (3 Ml) Ud) 3 ml IH [id number] PRN PRN Reason: Shortness of Breath Last Admin: 08/12/18 03:00 Dose: 3 ml Amlodipine Besylate (Norvasc) 10 mg PO DAILY [facility] Last Admin: 08/13/18 10:00 Dose: Not Given Atenolol (Tenormin) 50 mg PO DAILY [facility] Last Admin: 08/14/18 10:58 Dose: Not Given Budesonide (Pulmicort Respules) 0.5 mg IH BIDRESP [facility] Last Admin: 08/14/18 07:48 Dose: 0.5 mg Clonazepam (Klonopin) 0.5 mg PO BID [facility]; Protocol Last Admin: 08/13/18 12:42 Dose: Not Given Diphenhydramine HCl (Benadryl) 25 mg IVP Q8H PRN PRN Reason: Allergy symptoms Ergocalciferol (Drisdol 50,000 Intl Units Cap) 1 cap PO SUN [facility] Last Admin: 08/12/18 09:24 Dose: 1 cap Fentanyl Citrate (Fentanyl Citrate/Sodium Chloride 1 Mg/100 Ml) 1,000 mcg in 100 mls @ 7.5 mls/hr IV .[id number] PRN; Protocol PRN Reason: TITRATE PER MD ORDER Last Admin: 08/14/18 13:55 Dose: 75 mcg/hr, 7.5 mls/hr Acetaminophen (Ofirmev) 1,000 mg in 100 mls @ 400 mls/hr IVPB Q8H PRN PRN Reason: fever>101.1 Stop: 08/15/18 12:07 Last Admin: 08/14/18 10:56 Dose: 400 mls/hr Propofol (Diprivan) 1,000 mg in 100 mls @ 1.591 mls/hr IV .Q24H PRN; Protocol PRN Reason: TITRATE PER MD ORDER Last Admin: 08/14/18 00:15 Dose: 50 mcg/kg/min, 15.908 mls/hr Doxycycline Hyclate 100 mg/ (Sodium Chloride) 100 mls @ 100 mls/hr IVPB Q12 [facility]; Protocol Stop: 08/20/18 13:31 Last Admin: 08/14/18 10:58 Dose: 100 mls/hr Piperacillin Sod/Tazobactam Sod (Zosyn 3.375 In Ns 100ml) 100 mls @ 25 mls/hr IVPB Q8 [facility]; Protocol Stop: 08/20/18 14:01 Last Admin: 08/14/18 15:54 Dose: 25 mls/hr Vancomycin HCl (Vancomycin 1gm) 1 gm in 250 mls @ 167 mls/hr IVPB 0330,1530 [facility]; Protocol Last Admin: 08/14/18 15:55 Dose: 167 mls/hr Sodium Chloride (Sodium Chloride 0.9%) 1,000 mls @ 100 mls/hr IV .Q10H [facility] Last Admin: 08/14/18 04:34 Dose: 100 mls/hr NOREPINEPHRINE BIT/0.9 % NACL (Levophed 4 Mg/ 250 Ml Ns Premixed) 4 mg in 250 mls @ 15 mls/hr IV .[id number] PRN; Protocol PRN Reason: TITRATE PER MD ORDER Last Admin: 08/14/18 07:30 Dose: 4 mcg/min, 15 mls/hr Immune Globulin 30 gm/ (Miscellaneous) 300 mls @ 50 mls/hr IV ONCE ONE Stop: 08/14/18 18:10 Potassium Chloride 20 meq/ (Sodium Chloride) 1,010 mls @ 100 mls/hr IV .Q10H6M [facility] Methylprednisolone 250 mg/ (Sodium Chloride) 100 mls @ 200 mls/hr IVPB Q8H [facility] Stop: 08/15/18 08:59 Ibuprofen (Motrin Tab) 400 mg PO Q6H PRN PRN Reason: Fever >100.4 F Ipratropium [place] (Atrovent) 0.5 mg IH TIDRESP [facility] Last Admin: 08/14/18 13:28 Dose: 0.5 mg Levalbuterol HCl (Xopenex) 0.63 mg IH TIDRESP [facility] Last Admin: 08/14/18 13:28 Dose: 0.63 mg Loratadine (Claritin) 10 mg PO DAILY [facility] Last Admin: 08/13/18 10:00 Dose: Not Given Losartan Potassium (Cozaar) 50 mg PO QPM [facility] Last Admin: 08/13/18 18:14 Dose: Not Given Magnesium Oxide (Mag-Ox) 400 mg PO BID [facility] Last Admin: 08/14/18 10:55 Dose: 400 mg Metoprolol Tartrate (Lopressor) 5 mg IVP ONCE PRN PRN Reason: HR above 130's Last Admin: 08/13/18 12:49 Dose: 5 mg Montelukast Sodium (Singulair) 10 mg PO DAILY [facility] Last Admin: 08/14/18 10:58 Dose: Not Given Mupirocin (Bactroban Ointment) 1 gm TOP BID [facility] Last Admin: 08/14/18 10:55 Dose: 1 unit Nicotine (Nicoderm Cq) 1 patch TD DAILY [facility] Last Admin: 08/12/18 09:26 Dose: Not Given Non-Formulary Medication (Vitamin B Complex [Super B-50 Complex]) 1 cap PO DAILY [facility] Last Admin: 08/14/18 10:59 Dose: Not Given Ondansetron HCl (Zofran Inj) 4 mg IVP Q6H PRN PRN Reason: Nausea/Vomiting Last Admin: 08/10/18 02:02 Dose: 4 mg Oxycodone HCl (Oxycodone Immediate Release Tab) 5 mg PO Q8H PRN PRN Reason: Pain, severe (8-10) Last Admin: 08/13/18 04:51 Dose: 5 mg Pantoprazole Sodium (Protonix Inj) 40 mg IVP DAILY [facility] Last Admin: 08/14/18 10:57 Dose: 40 mg Potassium Chloride (K-Dur 20 Meq Er Tab) 20 meq PO DAILY [facility] Last Admin: 08/14/18 10:55 Dose: 20 meq Sodium Chloride ([place] Nasal [place]) 0 ml NS QID [facility] Last Admin: 08/14/18 14:21 Dose: Not Given Tramadol HCl (Ultram) 50 mg PO TID PRN PRN Reason: Pain, moderate (4-7) Tranexamic Acid (Tranexamic Acid) 500 mg IH TIDRESP [facility] Last Admin: 08/14/18 13:31 Dose: 100 mg - Labs Labs: 08/14/18 17:00 08/14/18 05:40 PT 23.1 SECONDS (9.4-12.5) H 08/14/18 17:00 INR 2.08 08/14/18 17:00 APTT 30.6 Seconds (26.9-38.3) 08/13/18 17:10 Attending/Attestation - Attestation I have personally seen and examined this patient.: Yes I have fully participated in the care of the patient.: Yes I have reviewed all pertinent clinical information, including history, physical exam and plan: Yes
--- NOTE | 2018-08-14 15:16 | PN ---
DATE: 08/13/2018 SUBJECTIVE: The patient has hemoptysis recurrent and tachypnea associated with that and apparent respiratory failure for which she was intubated and transferred to ICU. In the ICU, she is on Fentanyl drip. She is comfortable, 60% FiO2, saturating 99%. She is still tachycardic 120, 112 heart rate. She is sedated, seems comfortable. PHYSICAL EXAMINATION: VITAL SIGNS: On 08/13/2018, temperature 98.4, heart rate 112, blood pressure 99/53, respirations 100, saturation 60% FiO2. HEAD AND NECK: Normal. CHEST: Clear. CARDIAC: First sound and second sound normal. ABDOMEN: Soft, nontender. EXTREMITIES: No edema. NEUROLOGIC: The patient is sedated, and she is poorly responsive. LABORATORY DATA: Current laboratory study on 08/13/2018 is as following; white count 3.2, hemoglobin 7.8, hematocrit 23.4, platelet 44,000. Chemistry: Sodium 146, potassium 3, chloride 112, bicarb 23, BUN 19, creatinine 0.8 and her calcium is 7.8. The patient also had a chest x-ray, which shows opacity in both lung bases, infiltrate versus atelectasis. The patient is intubated. IMPRESSION AND PLAN: 1. Respiratory failure, multifocal pneumonia. 2. Chronic obstructive pulmonary disease. 3. Emphysema with large bullae. The patient is to be continued on the ventilator and followup with in class special education teacher, Dr. Lawrence Lema, and Pulmonary consult, Dr. Maurer and ID consult, Dr. Juan. The patient currently was getting, she had vancomycin 1 g and she got also doxycycline 100 mg twice a day, and she was getting Zosyn 3.375 g IV every 6 hours. Continue current therapy. We are treating for aspiration pneumonia. Another possibility of the infiltrates could be aspiration pneumonia. She has hemoptysis. She also had possibility of viral underlying infection and will be addressed as the patient progresses at this time. We will treat for aspiration pneumonia plus other nosocomial pneumonia. We will follow up with this patient. 4. Severe myelodysplastic syndrome, acute myeloid leukemia. The patient's leukemia is advanced with a bad prognosis. Continue supportive care, plasmapheresis, platelet single donor will be transfused. 5. Left arm deep venous thrombosis, arm swelling. She is on Lovenox 40 mg subcutaneously daily. We will continue to follow now. She will hold Lovenox on hold because of hemoptysis and we will follow up with her consultants. 6. History of hypertension. She is on Cozaar but we on hold some medications. Cozaar will continue 50 mg p.o. daily, atenolol 25 mg p.o. daily, Norvasc 10 mg daily has been on hold. I will continue her on the blood pressure, heart rate parameters. 7. Chronic obstructive pulmonary disease. Continue inhaled bronchodilators. 8. The patient is agitated. She is currently on fentanyl drip, which is given for pain control. The patient is also getting at 1.59 mL per hour. We will continue inhaled ventilator as she seems stable on current medications. Plan is to continue supportive care. The patient has , spoke with her daughter and will continue current therapy for now. The patient will continue fentanyl drip, continue Nicoderm patch, hold off on any Motrin for she has no fever and does not mean that. Continue Tylenol p.r.n., [place] spray, oxycodone p.r.n., Pulmicort, Singulair, and Spiriva. We will repeat labs in the morning. August Lara MD
--- NOTE | 2018-08-14 16:51 | PN ---
DATE: 08/14/2018 LOCATION: The patient in ICU, room 128, bed 1. REASON FOR CONSULTATION: Respiratory failure, sinus tachycardia, sepsis, pneumonia, leukemia, history of lung cancer, history of breast cancer, lumpectomy in 2003. The patient post lung cancer, post chemotherapy. The patient is diagnosed with leukemia, LVF 45%-50%. Elevated troponin. OBJECTIVE: GENERAL: The patient continued to be on the respirator. VITAL SIGNS: Blood pressure 90/48, respirations 17, pulse 106, the patient is afebrile. HEENT: Head is normocephalic. Eyes: Pupils normal. Conjunctivae pale. NECK: JVP low. Carotid equal. THORAX: AP diameter normal. LUNGS: Fine basilar rales. CARDIOVASCULAR: S1 and S2. ABDOMEN: Soft. Bowel sounds normal. EXTREMITIES: No clubbing or cyanosis. LABORATORY DATA: WBC 4, hemoglobin 7.6, hematocrit 22.7, platelet 23, 26. Sodium 147, potassium 2.7, BUN 21, creatinine 0.7, calcium 7.7, phosphorus 4.6. Total bilirubin 5.7, AST 26, ALT 25, total protein 5 which is low, albumin is 2.1 which is low, NT pro-BNP yesterday was [id number]. Chest x-ray repeated today. It shows bilateral alveolar and interstitial infiltrates. No change from the previous x-ray. Troponin on 08/11/2018 was 0.14 and second was 0.12, third one was again 0.14. DIAGNOSES: Sinus tachycardia reflection of underlying multiple medical problems including sepsis, anemia, bilateral pneumonia, respiratory failure, leukemia, hypokalemia, history of lung cancer, status post chemotherapy, history of breast cancer status post lumpectomy, slightly elevated troponin probably related to sepsis. PLAN: Plan is to give replacement therapy for the potassium. We will give therapy and repeat labs in the morning. The patient also on antibiotics IV and atenolol and p.r.n. IV Lopressor, Cozaar 50 mg daily, doxycycline 100 mg every 12 hours. The patient is getting 20 mEq p.o. daily, we will extra potassium today. Magnesium oxide 400 mg b.i.d., atenolol 50 p.o. daily, Lopressor 5 mg p.r.n. for tachycardia. The patient continued to be intubated. Also, on amlodipine 10 daily. We will continue present therapy. Troponin will be elevated due to sepsis. The patient not in a shape to do any cardiac intervention at this point. Continue present therapy. We will follow with you. Solange Escobar MD
[2018-08-14 17:12] LABS: BASO # 0.05 K/mm3 (0.0-2.0); BASO % 1.1 % (0.0-3.0); HEMOGLOBIN 8.4 g/dL (12.0-16.0); LYMPH # 1.3 (1.2-3.4); LYMPH % 28.3 % (22.0-35.0); MEAN CELL VOLUME 87.2 fl (80.0-105.0); MEAN CORPUSCULAR HEMOGLOBIN 29.2 pg (25.0-35.0); MEAN CORPUSCULAR HGB CONC 33.5 g/dl (31.0-37.0); MEAN PLATELET VOLUME 9.4 fl (7.0-11.0); MONO # 1.8 (0.1-0.6); MONO % 40.6 % (1.0-6.0); RBC 2.88 10^6/uL (3.5-6.1); RED CELL DISTRIBUTION WIDTH 15.9 % (11.5-14.5); WHITE BLOOD COUNT 4.5 10^3/uL (4.5-11.0)
[2018-08-14 17:19] LABS: INR 2.08; PROTHROMBIN TIME 23.1 SECONDS (9.4-12.5)
[2018-08-14 17:27] LABS: PLATELET COUNT 12 10^3/uL (120.0-450.0)
[2018-08-14 17:29] LABS: BLOOD UREA NITROGEN 24 mg/dL (7-21); GFR NON-AFRICAN AMERICAN > 60
[2018-08-14 18:12] LABS: ERYTHROCYTE SEDIMENTATION RATE 130 mm/hr (0.0-20.0)
--- NOTE | 2018-08-14 18:59 | CON ---
DATE OF CONSULTATION: 08/14/2018 The patient is admitted for Dr. Lara. REFERRING MD: Dr. Lara. REASON FOR CONSULTATION: Evaluation of a patient unknown to me, who was noted to have refractory hypokalemia. HISTORY OF PRESENT ILLNESS: The patient is an unfortunate 53-year-old black female with a history of breast cancer status post lumpectomy, history of lung cancer status post lumpectomy, history of AML, history of hypertension, COPD, history of recently diagnosed DVT at the left upper extremity, history of pancytopenia, history of possible myelofibrosis, currently with acute respiratory failure, intubated, sedated in ICU bed #1. The patient has bilateral pneumonia. She has pulmonary hypertension. She has received 4 units of platelets, 1 unit of FFP and is receiving packed red blood cells presently. The patient has normal renal parameters. She has had difficulties maintaining her potassium in the normal range. Her magnesium level was normal. She had been receiving IV fluids without potassium supplements. She has been receiving K riders along with magnesium supplements. Her potassium level today was 2.7, yesterday it was 3 with a previous value yesterday of 2.5. On admission, she was 3.2. The patient's last round of chemotherapy was back in June. The patient remains hypotensive on pressor therapy and blood pressure support. She will be starting tube feedings later today. We are asked to evaluate the patient for her refractory hypokalemia. Her magnesium level was normal at 2, but it was 1.5 on the previous day. Her BUN remains stable at around 20 with a creatinine of 0.7. PAST MEDICAL HISTORY: Significant for that of breast cancer status post lumpectomy, lung cancer status post lumpectomy, history of AML, history of possible myelofibrosis with pancytopenia, history of COPD, hypertension, bilateral pneumonia, history of pulmonary hypertension with valvular heart disease, MR/TR, past history of hypertension, now hypotensive. MEDICATIONS: Medications at home include that of Percocet, Klonopin, Norvasc, multivitamins, Spiriva, NicoDerm CQ, clonidine, potassium, Protonix, [place] nasal spray, Singulair, Remeron, magnesium oxide, losartan, Xyzal, vitamin D2, Tenormin, albuterol, p.r.n. Tylenol, Compazine, and Diflucan. ALLERGIES: THE PATIENT HAS NO KNOWN ALLERGIES TO MEDICATION. MEDICATIONS: Current medications in hospital include that of Atrovent, Bactroban, Benadryl, Claritin, Diprivan, doxycycline, ergocalciferol, DuoNeb, fentanyl, immunoglobulin, potassium tablets, Levophed, Lopressor p.r.n., mag oxide, [place] nasal spray, Tylenol p.r.n., oxycodone p.r.n., Protonix, Pulmicort Respules, normal saline 100 mL an hour, Singulair, Tenormin, tranexamic acid, Ultram, IV vancomycin, Levophed, Zofran, and Zosyn. SOCIAL HISTORY: Former smoker. The patient uses marijuana. No alcohol use. FAMILY HISTORY: Unobtainable from the patient as she is on a ventilator. REVIEW OF SYSTEMS: Unobtainable from the patient as she is on a ventilator. PHYSICAL EXAMINATION: GENERAL: The patient is currently seen in ICU, bed #1. She is intubated and sedated. VITAL SIGNS: Current blood pressure is systolic 81 with a diastolic of 34, heart rate is 122 with a sinus tachycardia, temperature 99.5 with an oxygen saturation of 99% and a respiratory rate on the ventilator of 24. The patient is intubated. She has an NG tube in place. HEENT: Her eyes are closed. NECK: No neck vein distention. CHEST: Scattered rhonchi. No rales or wheezing. CARDIOVASCULAR: Shows a regular rate and rhythm with MR/TR. No S3, no S4, no rub. ABDOMEN: Soft. Bowel sounds normal. No rebound, guarding, or masses. BACK: No CVAT. No spinal tenderness. EXTREMITIES: Show puffiness of her left upper extremity. She has trace to 1+ pitting edema of her lower extremity bilaterally. No cyanosis. No clubbing. Her distal lower extremity pulses are reduced secondary to edema. NEURO: Neuro was difficult to assess secondary to sedation and the fact that she is intubated. LABORATORY DATA AND IMAGING STUDIES: CBC, white blood cell count today 4, hemoglobin 7.6, platelet count manual was 26,000. Coags, fibrinogen was 689 with a PT of 24, INR of 2.16, PTT of 30.6. Fibrin split products are greater than 40. Blood gas today, pH 7.27, pO2 of 52 with a pCO2 of 45. Chemistries show a potassium of 2.7 today, sodium 147, chloride 115 with a CO2 of 23. BUN 21 with a creatinine of 0.7. Calcium 7.7 with an albumin of 2.1, corrects to normal. Phosphorus is 4.6 with a magnesium level corrected to 2. Bilirubin is 5.7 with a direct bilirubin of 4.9. Liver enzymes otherwise are normal. Procalcitonin was elevated at 43.21. Last BMP was 53,000. Urine showed 2+ protein. No red blood cells, no white blood cells. Influenza titers were negative. CMV titers were negative. HIV titers were negative. Chest x-ray shows bilateral infiltrates, interstitial and alveolar. The patient is intubated. Abdominal and pelvic CT scan done on the day after admission showed thickening of the terminal ileum and small bilateral pleural effusions. ASSESSMENT: 1. Normal renal parameters. 2. Refractory hypokalemia. The patient did have mild hypomagnesemia. This has been corrected. As discussed with house staff, I suggest adding potassium supplements to the maintenance IV fluids rather than replacing on a p.r.n. basis. Once tube feedings start through the NG tube, KCl elixir may also be given to the patient to support the potassium level. It is unclear to me exactly as to what her regimen was for her chemotherapy. Perhaps her electrolyte abnormalities stem from past chemotherapy. The patient presently has no gastrointestinal losses. No diarrhea. No nausea or vomiting. Again, as discussed with house staff suggests adding maintenance potassium supplements to her IV fluid administration. 3. Acute respiratory failure. The patient is intubated. She appears to have bilateral pneumonia. She remains on IV antibiotic therapy. She will remain monitored closely in the ICU. 4. History of breast cancer, status post lumpectomy. 5. History of lung cancer, status post lobectomy. 6. 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 The patient is receiving blood products on an as-needed basis. 7. Past history of cigarette smoking with chronic obstructive pulmonary disease. 8. Past history of hypertension. The patient remains hypotensive on pressor support. 9. History of deep venous thrombosis of left upper extremity. 10. History of lower extremity edema. PLAN: 1. Discussed with house staff. As noted above, I would suggest replacing potassium supplements in her maintenance fluid and adding potassium supplements to her tube feeding formula once this starts. This would decrease the need for us to use p.r.n. potassium riders. 2. We will discuss with Oncology regarding her outpatient regimen for chemotherapy, perhaps medication use is just playing a role in her mild hypomagnesemia and refractory hypokalemia. 3. For her hypotension, continue support with IV fluid hydration and pressor support. 4. Continue to support the patient from a pulmonary standpoint with ventilatory support. The patient appears to have an acute infectious process superimposed on her history of COPD and history of lung cancer with lobectomy. 5. Continue to support the patient with blood products as necessary. 6. We will continue to work together with the baggage handling supervisor, ICU house staff, Infectious Disease, and Dr. Dela Cruz. 7. Daily labs. Greater than 35 minutes spent in the care of this critically ill patient. Case has been discussed with ICU nurse and ICU house staff. Abdiel Maria MD
[2018-08-14] MEDS ORDERED: Metoprolol 1 mg/ml Inj IVP PRN (20:30)
[2018-08-14 20:38] LABS: COMPLEMENT C4 22.6 mg/dL (14.0-44.0)
[2018-08-15] MEDS: Vancomycin 1gm in NS 250ml 1 GM/250 ML BAG IVPB SCH ×2 (02:36→15:32)
[2018-08-15] MEDS: Fentanyl 1000mcg/100ml NS 1,000 MCG/100 ML BAG IV PRN ×2 (04:01→16:20)
[2018-08-15] MEDS: Piperacillin/Tazobact 3.375 gm 100 ML IVPB SCH ×3 (05:14→21:19)
[2018-08-15 06:01] LABS: ARTERIAL BLOOD GAS HCO3 19.4 mmol/L (21-28); ARTERIAL BLOOD GAS HEMOGLOBIN 9.4 g/dL (11.7-17.4); ARTERIAL BLOOD GAS O2 CAPACITY 12.7 mL/dl (16-24); ARTERIAL BLOOD GAS O2 CONTENT 11.1 ML/dl (15-23); ARTERIAL BLOOD GAS O2 SAT 87.3 % (95-98); ARTERIAL BLOOD GAS PCO2 57 mm/Hg (35-45); ARTERIAL BLOOD GAS PH 7.14 (7.35-7.45); ARTERIAL BLOOD GAS TCO2 21.1 mmol.L (22-28)
[2018-08-15 06:27] LABS: BASO # 0.06 K/mm3 (0.0-2.0); BASO % 1.4 % (0.0-3.0); HEMOGLOBIN 9.6 g/dL (12.0-16.0); LYMPH # 1.6 (1.2-3.4); MEAN CELL VOLUME 86.2 fl (80.0-105.0); MEAN CORPUSCULAR HEMOGLOBIN 28.8 pg (25.0-35.0); MEAN CORPUSCULAR HGB CONC 33.4 g/dl (31.0-37.0); MEAN PLATELET VOLUME 8.6 fl (7.0-11.0); MONO # 1.2 (0.1-0.6); MONO % 28.9 % (1.0-6.0); RBC 3.33 10^6/uL (3.5-6.1); RED CELL DISTRIBUTION WIDTH 17.4 % (11.5-14.5); WHITE BLOOD COUNT 4.2 10^3/uL (4.5-11.0)
[2018-08-15] MEDS: Propofol 10 mg/ml 1,000 MG/100 ML VIAL IV PRN ×3 (06:46→18:40)
[2018-08-15 06:47] LABS: ALB/GLOB RATIO 0.6 (1.1-1.8); ALBUMIN 2.4 g/dL (3.0-4.8); ALT/SGPT 21 U/L (7-56); AST/SGOT 22 U/L (14-36); BLOOD UREA NITROGEN 28 mg/dL (7-21); CALCIUM 8.3 mg/dL (8.4-10.5); GFR NON-AFRICAN AMERICAN 58
[2018-08-15 06:52] LABS: PLATELET COUNT 38 10^3/uL (120.0-450.0)
--- NOTE | 2018-08-15 07:15 | CP.CCUPN ---
<Rolando Tran - Last Filed: 08/15/18 11:05> CCU Subjective - Physician Review Events Since Last Encounter (Free Text): 08/15/18 07:12 temp elevated, given Tylenol Subjective (Free Text): 08/14/18 09:06 Pt seen and examined this morning in the ICU, pt intubated and sedated, NAD 08/15/18 07:14 Pt seen and examined, intubated, sedated, on pressers, unable to communicated during exam CCU Objective - Vital Signs / Intake & Output Intake and Output (Last 8hrs): Intake & Output 08/14/18 08/15/18 08/15/18 22:59 06:59 14:59 Intake Total 1590 250 Output Total 500 Balance 1090 250 Intake: IV 950 250 Right Femoral 950 Blood Product 640 Output: Urine 500 2-way Urethral 500 Other: # Bowel Movements 1 - Physical Exam Head: Positive for: Atraumatic, Normocephalic Pupils: Positive for: PERRL Extroacular Muscles: Positive for: EOMI Conjunctiva: Positive for: Normal Mouth: Positive for: Dry Neck: Positive for: Normal Range of Motion Respiratory/Chest: Positive for: Clear to Auscultation, Good Air Exchange, Other (intubated ). Negative for: Respiratory Distress, Accessory Muscle Use Cardiovascular: Positive for: Normal S1, S2, Tachycardic. Negative for: Murmurs Abdomen: Negative for: Peritoneal Signs Back: Positive for: Normal Inspection Upper Extremity: Positive for: Normal Inspection. Negative for: Cyanosis, Edema Lower Extremity: Positive for: Normal Inspection, Edema Skin: Positive for: Warm, Dry, Normal Color. Negative for: Rashes Psychiatric: Positive for: Other (sedated) - Medications Active Medications: Active Medications Generic Name Dose Route Start Last Admin Trade Name Freq PRN Reason Stop Dose Admin Albuterol/Ipratropium 3 ml 08/08/18 14:07 08/12/18 03:00 Duoneb 3 Mg/0.5 Mg (3 Ml) Ud IH 3 ml [id number] PRN Administration Shortness of Breath Amlodipine Besylate 10 mg 08/08/18 10:00 08/13/18 10:00 Norvasc PO Not Given DAILY KAYLEIGH Atenolol 50 mg 08/13/18 10:00 08/14/18 10:58 Tenormin PO Not Given DAILY KAYLEIGH Budesonide 0.5 mg 08/07/18 20:00 08/14/18 19:42 Pulmicort Respules IH 0.5 mg BIDRESP KAYLEIGH Administration Clonazepam 0.5 mg 08/07/18 18:00 08/13/18 12:42 Klonopin PO Not Given BID KAYLEIGH Protocol Diphenhydramine HCl 25 mg 08/12/18 13:50 Benadryl IVP Q8H PRN Allergy symptoms Ergocalciferol 1 cap 08/12/18 10:00 08/12/18 09:24 Drisdol 50,000 Intl Units Cap PO 1 cap SUN KAYLEIGH Administration Fentanyl Citrate 1,000 mcg in 100 mls @ 7.5 mls/hr 08/13/18 11:35 08/15/18 04:01 Fentanyl Citrate/Sodium Chloride 1 Mg/100 Ml IV 75 mcg/hr .[id number] PRN 7.5 mls/hr TITRATE PER MD ORDER Administration Protocol 75 MCG/HR Acetaminophen 1,000 mg in 100 mls @ 400 mls/hr 08/13/18 12:06 08/14/18 23:19 Ofirmev IVPB 08/15/18 12:07 400 mls/hr Q8H PRN Administration fever>101.1 Propofol 1,000 mg in 100 mls @ 1.591 mls/hr 08/13/18 12:48 08/15/18 06:46 Diprivan IV 50 mcg/kg/min .Q24H PRN 15.908 mls/hr TITRATE PER MD ORDER Administration Protocol 5 MCG/KG/MIN Doxycycline Hyclate 100 mg/ 100 mls @ 100 mls/hr 08/13/18 13:30 08/14/18 21:59 Sodium Chloride IVPB 08/20/18 13:31 100 mls/hr Q12 KAYLEIGH Administration Protocol Piperacillin Sod/Tazobactam Sod 100 mls @ 25 mls/hr 08/13/18 14:00 08/15/18 05:14 Zosyn 3.375 In Ns 100ml IVPB 08/20/18 14:01 25 mls/hr Q8 KAYLEIGH Administration Protocol Vancomycin HCl 1 gm in 250 mls @ 167 mls/hr 08/13/18 14:44 08/15/18 02:36 Vancomycin 1gm IVPB 167 mls/hr 0330,1530 KAYLEIGH Administration Protocol Sodium Chloride 1,000 mls @ 100 mls/hr 08/13/18 19:00 08/14/18 04:34 Sodium Chloride 0.9% IV 100 mls/hr .Q10H KAYLEIGH Administration NOREPINEPHRINE BIT/0.9 % NACL 4 mg in 250 mls @ 15 mls/hr 08/14/18 11:47 08/15/18 05:44 Levophed 4 Mg/ 250 Ml Ns Premixed IV 7 mcg/min .[id number] PRN 26.25 mls/hr TITRATE PER MD ORDER Titration Protocol 4 MCG/MIN Potassium Chloride 20 meq/ 1,010 mls @ 100 mls/hr 08/14/18 15:02 Sodium Chloride IV .Q10H6M KALYEIGH Methylprednisolone 250 mg/ 100 mls @ 200 mls/hr 08/14/18 16:30 08/15/18 01:51 Sodium Chloride IVPB 08/15/18 08:59 200 mls/hr Q8H KAYLEIGH Administration Ibuprofen 400 mg 08/13/18 07:45 Motrin Tab PO Q6H PRN Fever >100.4 F Ipratropium [place] 0.5 mg 08/14/18 14:00 08/14/18 19:42 Atrovent IH 0.5 mg TIDRESP KAYLEIGH Administration Levalbuterol HCl 0.63 mg 08/14/18 14:00 08/14/18 19:43 Xopenex IH 0.63 mg TIDRESP KAYLEIGH Administration Loratadine 10 mg 08/08/18 10:00 08/13/18 10:00 Claritin PO Not Given DAILY KAYLEIGH Losartan Potassium 50 mg 08/07/18 18:00 08/13/18 18:14 Cozaar PO Not Given QPM KAYLEIGH Magnesium Oxide 400 mg 08/07/18 18:00 08/14/18 18:46 Mag-Ox PO 400 mg BID KAYLEIGH Administration Metoprolol Tartrate 5 mg 08/14/18 20:30 08/14/18 20:38 Lopressor IVP 5 mg Q6H PRN Administration HR above 130's Montelukast Sodium 10 mg 08/08/18 10:00 08/14/18 10:58 Singulair PO Not Given DAILY [facility] Mupirocin 1 gm 08/13/18 20:30 08/14/18 18:43 Bactroban Ointment TOP 1 unit BID KAYLEIGH Administration Nicotine 1 patch 08/07/18 16:45 08/12/18 09:26 Nicoderm Cq TD Not Given DAILY [facility] Non-Formulary Medication 1 cap 08/08/18 10:00 08/14/18 10:59 Vitamin B Complex [Super B-50 Complex] PO Not Given DAILY KAYLEIGH Ondansetron HCl 4 mg 08/08/18 13:17 08/10/18 02:02 Zofran Inj IVP 4 mg Q6H PRN Administration Nausea/Vomiting Oxycodone HCl 5 mg 08/11/18 13:24 08/13/18 04:51 Oxycodone Immediate Release Tab PO 5 mg Q8H PRN Administration Pain, severe (8-10) Pantoprazole Sodium 40 mg 08/13/18 10:00 08/14/18 10:57 Protonix Inj IVP 40 mg DAILY KAYLEIGH Administration Potassium Chloride 20 meq 08/08/18 10:00 08/14/18 10:55 K-Dur 20 Meq Er Tab PO 20 meq DAILY KAYLEIGH Administration Sodium Chloride 0 ml 08/07/18 18:00 08/14/18 21:46 [place] Nasal [place] NS Not Given QID KAYLEIGH Tramadol HCl 50 mg 08/11/18 13:22 Ultram PO TID PRN Pain, moderate (4-7) Tranexamic Acid 500 mg 08/13/18 14:00 08/14/18 21:29 Tranexamic Acid IH 500 mg TIDRESP KAYLEIGH Administration - Patient Studies Lab Studies: Microbiology Studies 08/13/18 11:00 MRSA Culture (Admit) - Final [place] MRSA NOT DETECTED 08/11/18 20:45 Blood Culture - Preliminary Blood NO GROWTH AFTER 3 DAYS 08/11/18 20:25 Blood Culture - Preliminary Blood NO GROWTH AFTER 3 DAYS 08/13/18 11:00 Gram Stain - Final Trachasp 08/13/18 17:00 Mycobacterial Culture - Preliminary Other: Please Indicate 08/13/18 17:00 Gram Stain - Final Sputum 08/13/18 14:00 C. difficile Antigen & Toxins A,B - Final Stool Lab Studies 08/15/18 08/15/18 08/15/18 Range/Units 06:00 06:00 05:43 WBC 4.2 L (4.5-11.0) 10^3/uL RBC 3.33 L (3.5-6.1) 10^6/uL Hgb 9.6 L (12.0-16.0) g/dL Hct 28.7 L (36.0-48.0) % MCV 86.2 (80.0-105.0) fl MCH 28.8 (25.0-35.0) pg MCHC 33.4 (31.0-37.0) g/dl RDW 17.4 H (11.5-14.5) % Plt Count 38 L* (120.0-450.0) 10^3/uL Manual Plt Count (120-450) K/mm3 MPV 8.6 (7.0-11.0) fl Neut % (Auto) 31.7 L (50.0-68.0) % Lymph % (Auto) 38.0 H (22.0-35.0) % Long % (Auto) 28.9 H (1.0-6.0) % Eos % (Auto) 0.0 L (1.5-5.0) % Baso % (Auto) 1.4 (0.0-3.0) % Lymph # (Auto) 1.6 (1.2-3.4) Long # (Auto) 1.2 H (0.1-0.6) Eos # (Auto) 0.0 (0.0-0.7) Baso # (Auto) 0.06 (0.0-2.0) K/mm3 Absolute Neuts (auto) 1.32 L (1.4-6.5) Platelet Evaluation (NORMAL) ESR (0.0-20.0) mm/hr Retic Count (0.5-1.5) % Haptoglobin (30.0-200.0) mg/dL PT (9.4-12.5) SECONDS INR pCO2 57 H (35-45) mm/Hg pO2 48.0 L (80-100) mm/Hg HCO3 19.4 L (21-28) mmol/L ABG pH 7.14 L* (7.35-7.45) ABG Total CO2 21.1 L (22-28) mmol.L ABG O2 Saturation 87.3 L (95-98) % ABG O2 Content 11.1 L (15-23) ML/dl ABG Base Excess -9.5 L (-2.0-3.0) mmol/L ABG Hemoglobin 9.4 L (11.7-17.4) g/dL ABG Carboxyhemoglobin 3.3 H (0.5-1.5) % POC ABG HHb (Measured) 12.2 H (0-5) % ABG Methemoglobin 0.9 (0.0-3.0) % ABG O2 Capacity 12.7 L (16-24) mL/dl Hgb O2 Saturation 83.7 L (95.0-98.0) % FiO2 60.0 % Crit Value Called To Dr. casanova Crit Value Called By Phil jacques Blood Gas Notified Time 600 Sodium 149 H (132-148) mmol/L Potassium 3.9 (3.6-5.0) mmol/L Chloride 117 H (98-107) mmol/L Carbon Dioxide 22 (21-33) mmol/L Anion Gap 13 (10-20) BUN 28 H (7-21) mg/dL Creatinine 1.0 (0.7-1.2) mg/dl Est GFR ( Amer) > 60 Est GFR (Non-Af Amer) 58 Random Glucose 115 H (70-110) mg/dL Calcium 8.3 L (8.4-10.5) mg/dL Phosphorus 6.5 H (2.5-4.5) mg/dL Magnesium 2.0 (1.7-2.2) mg/dL Total Bilirubin 5.5 H (0.2-1.3) mg/dL Direct Bilirubin (0.0-0.4) mg/dL GGT (8-78) U/L AST 22 (14-36) U/L ALT 21 (7-56) U/L Alkaline Phosphatase 82 (38-126) U/L Lactate Dehydrogenase (333-699) U/L C-Reactive Protein (0.0-9.9) mg/L Total Protein 6.3 (5.8-8.3) g/dL Albumin 2.4 L (3.0-4.8) g/dL Globulin 3.9 gm/dL Albumin/Globulin Ratio 0.6 L (1.1-1.8) Fluid Source Fluid Appearance (CLEAR) Fluid WBC (0.0-300.0) /uL Fluid RBC (0.0-0.0) /uL Fluid Tot Cell Count (0-0) Fluid Mononuclear Cell (0-0) % Fl Polymorphonucl Cell (0-0) % Fluid Comment Complement C3 (88.0-165.0) mg/dL Complement C4 (14.0-44.0) mg/dL CMV Specimen Source CMV DNA Quant PCR (<200) IU/mL CMV Qnt PCR log IU/mL (<2.30) log IU/mL HIV 1&2 Ag/Ab, 4th Gen (Nonreactive) Blood Type Antibody Screen Crossmatch BBK History Checked 08/14/18 08/14/18 08/14/18 Range/Units 17:00 17:00 17:00 WBC (4.5-11.0) 10^3/uL RBC (3.5-6.1) 10^6/uL Hgb (12.0-16.0) g/dL Hct (36.0-48.0) % MCV (80.0-105.0) fl MCH (25.0-35.0) pg MCHC (31.0-37.0) g/dl RDW (11.5-14.5) % Plt Count (120.0-450.0) 10^3/uL Manual Plt Count (120-450) K/mm3 MPV (7.0-11.0) fl Neut % (Auto) (50.0-68.0) % Lymph % (Auto) (22.0-35.0) % Long % (Auto) (1.0-6.0) % Eos % (Auto) (1.5-5.0) % Baso % (Auto) (0.0-3.0) % Lymph # (Auto) (1.2-3.4) Long # (Auto) (0.1-0.6) Eos # (Auto) (0.0-0.7) Baso # (Auto) (0.0-2.0) K/mm3 Absolute Neuts (auto) (1.4-6.5) Platelet Evaluation (NORMAL) ESR (0.0-20.0) mm/hr Retic Count (0.5-1.5) % Haptoglobin (30.0-200.0) mg/dL PT 23.1 H (9.4-12.5) SECONDS INR 2.08 pCO2 (35-45) mm/Hg pO2 (80-100) mm/Hg HCO3 (21-28) mmol/L ABG pH (7.35-7.45) ABG Total CO2 (22-28) mmol.L ABG O2 Saturation (95-98) % ABG O2 Content (15-23) ML/dl ABG Base Excess (-2.0-3.0) mmol/L ABG Hemoglobin (11.7-17.4) g/dL ABG Carboxyhemoglobin (0.5-1.5) % POC ABG HHb (Measured) (0-5) % ABG Methemoglobin (0.0-3.0) % ABG O2 Capacity (16-24) mL/dl Hgb O2 Saturation (95.0-98.0) % FiO2 % Crit Value Called To Crit Value Called By Blood Gas Notified Time Sodium 146 (132-148) mmol/L Potassium 3.3 L (3.6-5.0) mmol/L Chloride 116 H (98-107) mmol/L Carbon Dioxide 19 L (21-33) mmol/L Anion Gap 15 (10-20) BUN 24 H (7-21) mg/dL Creatinine 0.9 (0.7-1.2) mg/dl Est GFR ( Amer) > 60 Est GFR (Non-Af Amer) > 60 Random Glucose 82 (70-110) mg/dL Calcium 8.0 L (8.4-10.5) mg/dL Phosphorus (2.5-4.5) mg/dL Magnesium (1.7-2.2) mg/dL Total Bilirubin (0.2-1.3) mg/dL Direct Bilirubin (0.0-0.4) mg/dL GGT (8-78) U/L AST (14-36) U/L ALT (7-56) U/L Alkaline Phosphatase (38-126) U/L Lactate Dehydrogenase (333-699) U/L C-Reactive Protein 434.00 H (0.0-9.9) mg/L Total Protein (5.8-8.3) g/dL Albumin (3.0-4.8) g/dL Globulin gm/dL Albumin/Globulin Ratio (1.1-1.8) Fluid Source Fluid Appearance (CLEAR) Fluid WBC (0.0-300.0) /uL Fluid RBC (0.0-0.0) /uL Fluid Tot Cell Count (0-0) Fluid Mononuclear Cell (0-0) % Fl Polymorphonucl Cell (0-0) % Fluid Comment Complement C3 88.0 (88.0-165.0) mg/dL Complement C4 22.6 (14.0-44.0) mg/dL CMV Specimen Source CMV DNA Quant PCR (<200) IU/mL CMV Qnt PCR log IU/mL (<2.30) log IU/mL HIV 1&2 Ag/Ab, 4th Gen (Nonreactive) Blood Type Antibody Screen Crossmatch BBK History Checked 08/14/18 08/14/18 08/14/18 Range/Units 17:00 13:24 10:00 WBC 4.5 (4.5-11.0) 10^3/uL RBC 2.88 L (3.5-6.1) 10^6/uL Hgb 8.4 L (12.0-16.0) g/dL Hct 25.1 L (36.0-48.0) % MCV 87.2 (80.0-105.0) fl MCH 29.2 (25.0-35.0) pg MCHC 33.5 (31.0-37.0) g/dl RDW 15.9 H (11.5-14.5) % Plt Count 12 L* (120.0-450.0) 10^3/uL Manual Plt Count (120-450) K/mm3 MPV 9.4 (7.0-11.0) fl Neut % (Auto) 30.0 L (50.0-68.0) % Lymph % (Auto) 28.3 (22.0-35.0) % Long % (Auto) 40.6 H (1.0-6.0) % Eos % (Auto) 0.0 L (1.5-5.0) % Baso % (Auto) 1.1 (0.0-3.0) % Lymph # (Auto) 1.3 (1.2-3.4) Long # (Auto) 1.8 H (0.1-0.6) Eos # (Auto) 0.0 (0.0-0.7) Baso # (Auto) 0.05 (0.0-2.0) K/mm3 Absolute Neuts (auto) 1.34 L (1.4-6.5) Platelet Evaluation (NORMAL) ESR 130 H (0.0-20.0) mm/hr Retic Count (0.5-1.5) % Haptoglobin (30.0-200.0) mg/dL PT (9.4-12.5) SECONDS INR pCO2 (35-45) mm/Hg pO2 (80-100) mm/Hg HCO3 (21-28) mmol/L ABG pH (7.35-7.45) ABG Total CO2 (22-28) mmol.L ABG O2 Saturation (95-98) % ABG O2 Content (15-23) ML/dl ABG Base Excess (-2.0-3.0) mmol/L ABG Hemoglobin (11.7-17.4) g/dL ABG Carboxyhemoglobin (0.5-1.5) % POC ABG HHb (Measured) (0-5) % ABG Methemoglobin (0.0-3.0) % ABG O2 Capacity (16-24) mL/dl Hgb O2 Saturation (95.0-98.0) % FiO2 % Crit Value Called To Crit Value Called By Blood Gas Notified Time Sodium (132-148) mmol/L Potassium (3.6-5.0) mmol/L Chloride (98-107) mmol/L Carbon Dioxide (21-33) mmol/L Anion Gap (10-20) BUN (7-21) mg/dL Creatinine (0.7-1.2) mg/dl Est GFR ( Amer) Est GFR (Non-Af Amer) Random Glucose (70-110) mg/dL Calcium (8.4-10.5) mg/dL Phosphorus (2.5-4.5) mg/dL Magnesium (1.7-2.2) mg/dL Total Bilirubin (0.2-1.3) mg/dL Direct Bilirubin (0.0-0.4) mg/dL GGT (8-78) U/L AST (14-36) U/L ALT (7-56) U/L Alkaline Phosphatase (38-126) U/L Lactate Dehydrogenase (333-699) U/L C-Reactive Protein (0.0-9.9) mg/L Total Protein (5.8-8.3) g/dL Albumin (3.0-4.8) g/dL Globulin gm/dL Albumin/Globulin Ratio (1.1-1.8) Fluid Source Peritoneal/ascites Fluid Appearance Bloody (CLEAR) Fluid WBC 40.0 (0.0-300.0) /u[place] [address].0 H (0.0-0.0) /uL Fluid Tot Cell Count 100 H (0-0) Fluid Mononuclear Cell 73.3 H (0-0) % Fl Polymorphonucl Cell 26.7 H (0-0) % Fluid Comment Cloudy Complement C3 (88.0-165.0) mg/dL Complement C4 (14.0-44.0) mg/dL CMV Specimen Source CMV DNA Quant PCR (<200) IU/mL CMV Qnt PCR log IU/mL (<2.30) log IU/mL HIV 1&2 Ag/Ab, 4th Gen (Nonreactive) Blood Type B POSITIVE Antibody Screen Negative Crossmatch See Detail BBK History Checked Patient has bt 08/14/18 08/14/18 08/14/18 Range/Units 08:50 08:50 08:50 WBC (4.5-11.0) 10^3/uL RBC (3.5-6.1) 10^6/uL Hgb (12.0-16.0) g/dL Hct (36.0-48.0) % MCV (80.0-105.0) fl MCH (25.0-35.0) pg MCHC (31.0-37.0) g/dl RDW (11.5-14.5) % Plt Count (120.0-450.0) 10^3/uL Manual Plt Count (120-450) K/mm3 MPV (7.0-11.0) fl Neut % (Auto) (50.0-68.0) % Lymph % (Auto) (22.0-35.0) % Long % (Auto) (1.0-6.0) % Eos % (Auto) (1.5-5.0) % Baso % (Auto) (0.0-3.0) % Lymph # (Auto) (1.2-3.4) Long # (Auto) (0.1-0.6) Eos # (Auto) (0.0-0.7) Baso # (Auto) (0.0-2.0) K/mm3 Absolute Neuts (auto) (1.4-6.5) Platelet Evaluation (NORMAL) ESR (0.0-20.0) mm/hr Retic Count 0.10 L (0.5-1.5) % Haptoglobin 321.1 H (30.0-200.0) mg/dL PT (9.4-12.5) SECONDS INR pCO2 (35-45) mm/Hg pO2 (80-100) mm/Hg HCO3 (21-28) mmol/L ABG pH (7.35-7.45) ABG Total CO2 (22-28) mmol.L ABG O2 Saturation (95-98) % ABG O2 Content (15-23) ML/dl ABG Base Excess (-2.0-3.0) mmol/L ABG Hemoglobin (11.7-17.4) g/dL ABG Carboxyhemoglobin (0.5-1.5) % POC ABG HHb (Measured) (0-5) % ABG Methemoglobin (0.0-3.0) % ABG O2 Capacity (16-24) mL/dl Hgb O2 Saturation (95.0-98.0) % FiO2 % Crit Value Called To Crit Value Called By Blood Gas Notified Time Sodium (132-148) mmol/L Potassium (3.6-5.0) mmol/L Chloride (98-107) mmol/L Carbon Dioxide (21-33) mmol/L Anion Gap (10-20) BUN (7-21) mg/dL Creatinine (0.7-1.2) mg/dl Est GFR ( Amer) Est GFR (Non-Af Amer) Random Glucose (70-110) mg/dL Calcium (8.4-10.5) mg/dL Phosphorus (2.5-4.5) mg/dL Magnesium (1.7-2.2) mg/dL Total Bilirubin (0.2-1.3) mg/dL Direct Bilirubin (0.0-0.4) mg/dL GGT 66 (8-78) U/L AST (14-36) U/L ALT (7-56) U/L Alkaline Phosphatase (38-126) U/L Lactate Dehydrogenase 487 (333-699) U/L C-Reactive Protein (0.0-9.9) mg/L Total Protein (5.8-8.3) g/dL Albumin (3.0-4.8) g/dL Globulin gm/dL Albumin/Globulin Ratio (1.1-1.8) Fluid Source Fluid Appearance (CLEAR) Fluid WBC (0.0-300.0) /uL Fluid RBC (0.0-0.0) /uL Fluid Tot Cell Count (0-0) Fluid Mononuclear Cell (0-0) % Fl Polymorphonucl Cell (0-0) % Fluid Comment Complement C3 (88.0-165.0) mg/dL Complement C4 (14.0-44.0) mg/dL CMV Specimen Source CMV DNA Quant PCR (<200) IU/mL CMV Qnt PCR log IU/mL (<2.30) log IU/mL HIV 1&2 Ag/Ab, 4th Gen (Nonreactive) Blood Type Antibody Screen Crossmatch BBK History Checked 08/14/18 08/14/18 08/12/18 Range/Units 05:40 05:40 07:00 WBC 4.0 L (4.5-11.0) 10^3/uL RBC 2.57 L (3.5-6.1) 10^6/uL Hgb 7.6 L (12.0-16.0) g/dL Hct 22.7 L (36.0-48.0) % MCV 88.3 (80.0-105.0) fl MCH 29.6 (25.0-35.0) pg MCHC 33.5 (31.0-37.0) g/dl RDW 16.3 H (11.5-14.5) % Plt Count 23 L* (120.0-450.0) 10^3/uL Manual Plt Count 26 L* (120-450) K/mm3 MPV 10.0 (7.0-11.0) fl Neut % (Auto) 39.7 L (50.0-68.0) % Lymph % (Auto) 16.0 L (22.0-35.0) % Long % (Auto) 43.8 H (1.0-6.0) % Eos % (Auto) 0.0 L (1.5-5.0) % Baso % (Auto) 0.5 (0.0-3.0) % Lymph # (Auto) 0.6 L (1.2-3.4) Long # (Auto) 1.8 H (0.1-0.6) Eos # (Auto) 0.0 (0.0-0.7) Baso # (Auto) 0.02 (0.0-2.0) K/mm3 Absolute Neuts (auto) 1.59 (1.4-6.5) Platelet Evaluation Low (NORMAL) ESR (0.0-20.0) mm/hr Retic Count (0.5-1.5) % Haptoglobin (30.0-200.0) mg/dL PT (9.4-12.5) SECONDS INR pCO2 (35-45) mm/Hg pO2 (80-100) mm/Hg HCO3 (21-28) mmol/L ABG pH (7.35-7.45) ABG Total CO2 (22-28) mmol.L ABG O2 Saturation (95-98) % ABG O2 Content (15-23) ML/dl ABG Base Excess (-2.0-3.0) mmol/L ABG Hemoglobin (11.7-17.4) g/dL ABG Carboxyhemoglobin (0.5-1.5) % POC ABG HHb (Measured) (0-5) % ABG Methemoglobin (0.0-3.0) % ABG O2 Capacity (16-24) mL/dl Hgb O2 Saturation (95.0-98.0) % FiO2 % Crit Value Called To Crit Value Called By Blood Gas Notified Time Sodium (132-148) mmol/L Potassium (3.6-5.0) mmol/L Chloride (98-107) mmol/L Carbon Dioxide (21-33) mmol/L Anion Gap (10-20) BUN (7-21) mg/dL Creatinine (0.7-1.2) mg/dl Est GFR ( Amer) Est GFR (Non-Af Amer) Random Glucose (70-110) mg/dL Calcium (8.4-10.5) mg/dL Phosphorus (2.5-4.5) mg/dL Magnesium (1.7-2.2) mg/dL Total Bilirubin (0.2-1.3) mg/dL Direct Bilirubin 4.9 H (0.0-0.4) mg/dL GGT (8-78) U/L AST (14-36) U/L ALT (7-56) U/L Alkaline Phosphatase (38-126) U/L Lactate Dehydrogenase (333-699) U/L C-Reactive Protein (0.0-9.9) mg/L Total Protein (5.8-8.3) g/dL Albumin (3.0-4.8) g/dL Globulin gm/dL Albumin/Globulin Ratio (1.1-1.8) Fluid Source Fluid Appearance (CLEAR) Fluid WBC (0.0-300.0) /uL Fluid RBC (0.0-0.0) /uL Fluid Tot Cell Count (0-0) Fluid Mononuclear Cell (0-0) % Fl Polymorphonucl Cell (0-0) % Fluid Comment Complement C3 (88.0-165.0) mg/dL Complement C4 (14.0-44.0) mg/dL CMV Specimen Source CMV DNA Quant PCR (<200) IU/mL CMV Qnt PCR log IU/mL (<2.30) log IU/mL HIV 1&2 Ag/Ab, 4th Gen Nonreactive (Nonreactive) Blood Type Antibody Screen Crossmatch BBK History Checked 08/10/18 Range/Units 12:50 WBC (4.5-11.0) 10^3/uL RBC (3.5-6.1) 10^6/uL Hgb (12.0-16.0) g/dL Hct (36.0-48.0) % MCV (80.0-105.0) fl MCH (25.0-35.0) pg MCHC (31.0-37.0) g/dl RDW (11.5-14.5) % Plt Count (120.0-450.0) 10^3/uL Manual Plt Count (120-450) K/mm3 MPV (7.0-11.0) fl Neut % (Auto) (50.0-68.0) % Lymph % (Auto) (22.0-35.0) % Long % (Auto) (1.0-6.0) % Eos % (Auto) (1.5-5.0) % Baso % (Auto) (0.0-3.0) % Lymph # (Auto) (1.2-3.4) Long # (Auto) (0.1-0.6) Eos # (Auto) (0.0-0.7) Baso # (Auto) (0.0-2.0) K/mm3 Absolute Neuts (auto) (1.4-6.5) Platelet Evaluation (NORMAL) ESR (0.0-20.0) mm/hr Retic Count (0.5-1.5) % Haptoglobin (30.0-200.0) mg/dL PT (9.4-12.5) SECONDS INR pCO2 (35-45) mm/Hg pO2 (80-100) mm/Hg HCO3 (21-28) mmol/L ABG pH (7.35-7.45) ABG Total CO2 (22-28) mmol.L ABG O2 Saturation (95-98) % ABG O2 Content (15-23) ML/dl ABG Base Excess (-2.0-3.0) mmol/L ABG Hemoglobin (11.7-17.4) g/dL ABG Carboxyhemoglobin (0.5-1.5) % POC ABG HHb (Measured) (0-5) % ABG Methemoglobin (0.0-3.0) % ABG O2 Capacity (16-24) mL/dl Hgb O2 Saturation (95.0-98.0) % FiO2 % Crit Value Called To Crit Value Called By Blood Gas Notified Time Sodium (132-148) mmol/L Potassium (3.6-5.0) mmol/L Chloride (98-107) mmol/L Carbon Dioxide (21-33) mmol/L Anion Gap (10-20) BUN (7-21) mg/dL Creatinine (0.7-1.2) mg/dl Est GFR ( Amer) Est GFR (Non-Af Amer) Random Glucose (70-110) mg/dL Calcium (8.4-10.5) mg/dL Phosphorus (2.5-4.5) mg/dL Magnesium (1.7-2.2) mg/dL Total Bilirubin (0.2-1.3) mg/dL Direct Bilirubin (0.0-0.4) mg/dL GGT (8-78) U/L AST (14-36) U/L ALT (7-56) U/L Alkaline Phosphatase (38-126) U/L Lactate Dehydrogenase (333-699) U/L C-Reactive Protein (0.0-9.9) mg/L Total Protein (5.8-8.3) g/dL Albumin (3.0-4.8) g/dL Globulin gm/dL Albumin/Globulin Ratio (1.1-1.8) Fluid Source Fluid Appearance (CLEAR) Fluid WBC (0.0-300.0) /uL Fluid RBC (0.0-0.0) /uL Fluid Tot Cell Count (0-0) Fluid Mononuclear Cell (0-0) % Fl Polymorphonucl Cell (0-0) % Fluid Comment Complement C3 (88.0-165.0) mg/dL Complement C4 (14.0-44.0) mg/dL CMV Specimen Source Plasma CMV DNA Quant PCR <200 (<200) IU/mL CMV Qnt PCR log IU/mL <2.30 (<2.30) log IU/mL HIV 1&2 Ag/Ab, 4th Gen (Nonreactive) Blood Type Antibody Screen Crossmatch BBK History Checked Laboratory Results - last 24 hr 08/10/18 08/12/18 08/14/18 12:50 07:00 05:40 WBC 4.0 L RBC 2.57 L Hgb 7.6 L Hct 22.7 L MCV 88.3 MCH 29.6 MCHC 33.5 RDW 16.3 H Plt Count 23 L* Manual Plt Count 26 L* MPV 10.0 Neut % (Auto) 39.7 L Lymph % (Auto) 16.0 L Long % (Auto) 43.8 H Eos % (Auto) 0.0 L Baso % (Auto) 0.5 Lymph # (Auto) 0.6 L Long # (Auto) 1.8 H Eos # (Auto) 0.0 Baso # (Auto) 0.02 Absolute Neuts (auto) 1.59 Platelet Evaluation Low ESR Retic Count Haptoglobin PT INR pCO2 pO2 HCO3 ABG pH ABG Total CO2 ABG O2 Saturation ABG O2 Content ABG Base Excess ABG Hemoglobin ABG Carboxyhemoglobin POC ABG HHb (Measured) ABG Methemoglobin ABG O2 Capacity Hgb O2 Saturation FiO2 Crit Value Called To Crit Value Called By Blood Gas Notified Time Sodium Potassium Chloride Carbon Dioxide Anion Gap BUN Creatinine Est GFR ( Amer) Est GFR (Non-Af Amer) Random Glucose Calcium Phosphorus Magnesium Total Bilirubin Direct Bilirubin GGT AST ALT Alkaline Phosphatase Lactate Dehydrogenase C-Reactive Protein Total Protein Albumin Globulin Albumin/Globulin Ratio Fluid Source Fluid Appearance Fluid WBC Fluid RBC Fluid Tot Cell Count Fluid Mononuclear Cell Fl Polymorphonucl Cell Fluid Comment Complement C3 Complement C4 CMV Specimen Source Plasma CMV DNA Quant PCR <200 CMV Qnt PCR log IU/mL <2.30 HIV 1&2 Ag/Ab, 4th Gen Nonreactive Blood Type Antibody Screen Crossmatch BBK History Checked 08/14/18 08/14/18 08/14/18 05:40 08:50 08:50 WBC RBC Hgb Hct MCV MCH MCHC RDW Plt Count Manual Plt Count MPV Neut % (Auto) Lymph % (Auto) Long % (Auto) Eos % (Auto) Baso % (Auto) Lymph # (Auto) Long # (Auto) Eos # (Auto) Baso # (Auto) Absolute Neuts (auto) Platelet Evaluation ESR Retic Count 0.10 L Haptoglobin 321.1 H PT INR pCO2 pO2 HCO3 ABG pH ABG Total CO2 ABG O2 Saturation ABG O2 Content ABG Base Excess ABG Hemoglobin ABG Carboxyhemoglobin POC ABG HHb (Measured) ABG Methemoglobin ABG O2 Capacity Hgb O2 Saturation FiO2 Crit Value Called To Crit Value Called By Blood Gas Notified Time Sodium Potassium Chloride Carbon Dioxide Anion Gap BUN Creatinine Est GFR ( Amer) Est GFR (Non-Af Amer) Random Glucose Calcium Phosphorus Magnesium Total Bilirubin Direct Bilirubin 4.9 H GGT AST ALT Alkaline Phosphatase Lactate Dehydrogenase C-Reactive Protein Total Protein Albumin Globulin Albumin/Globulin Ratio Fluid Source Fluid Appearance Fluid WBC Fluid RBC Fluid Tot Cell Count Fluid Mononuclear Cell Fl Polymorphonucl Cell Fluid Comment Complement C3 Complement C4 CMV Specimen Source CMV DNA Quant PCR CMV Qnt PCR log IU/mL HIV 1&2 Ag/Ab, 4th Gen Blood Type Antibody Screen Crossmatch BBK History Checked 08/14/18 08/14/18 08/14/18 08:50 10:00 13:24 WBC RBC Hgb Hct MCV MCH MCHC RDW Plt Count Manual Plt Count MPV Neut % (Auto) Lymph % (Auto) Long % (Auto) Eos % (Auto) Baso % (Auto) Lymph # (Auto) Long # (Auto) Eos # (Auto) Baso # (Auto) Absolute Neuts (auto) Platelet Evaluation ESR Retic Count Haptoglobin PT INR pCO2 pO2 HCO3 ABG pH ABG Total CO2 ABG O2 Saturation ABG O2 Content ABG Base Excess ABG Hemoglobin ABG Carboxyhemoglobin POC ABG HHb (Measured) ABG Methemoglobin ABG O2 Capacity Hgb O2 Saturation FiO2 Crit Value Called To Crit Value Called By Blood Gas Notified Time Sodium Potassium Chloride Carbon Dioxide Anion Gap BUN Creatinine Est GFR ( Amer) Est GFR (Non-Af Amer) Random Glucose Calcium Phosphorus Magnesium Total Bilirubin Direct Bilirubin GGT 66 AST ALT Alkaline Phosphatase Lactate Dehydrogenase 487 C-Reactive Protein Total Protein Albumin Globulin Albumin/Globulin Ratio Fluid Source Peritoneal/ascites Fluid Appearance Bloody Fluid WBC 40.0 Fluid RBC [address].0 H Fluid Tot Cell Count 100 H Fluid Mononuclear Cell 73.3 H Fl Polymorphonucl Cell 26.7 H Fluid Comment Cloudy Complement C3 Complement C4 CMV Specimen Source CMV DNA Quant PCR CMV Qnt PCR log IU/mL HIV 1&2 Ag/Ab, 4th Gen Blood Type B POSITIVE Antibody Screen Negative Crossmatch See Detail BBK History Checked Patient has bt 08/14/18 08/14/18 08/14/18 17:00 17:00 17:00 WBC 4.5 RBC 2.88 L Hgb 8.4 L Hct 25.1 L MCV 87.2 MCH 29.2 MCHC 33.5 RDW 15.9 H Plt Count 12 L* Manual Plt Count MPV 9.4 Neut % (Auto) 30.0 L Lymph % (Auto) 28.3 Long % (Auto) 40.6 H Eos % (Auto) 0.0 L Baso % (Auto) 1.1 Lymph # (Auto) 1.3 Long # (Auto) 1.8 H Eos # (Auto) 0.0 Baso # (Auto) 0.05 Absolute Neuts (auto) 1.34 L Platelet Evaluation ESR 130 H Retic Count Haptoglobin PT 23.1 H INR 2.08 pCO2 pO2 HCO3 ABG pH ABG Total CO2 ABG O2 Saturation ABG O2 Content ABG Base Excess ABG Hemoglobin ABG Carboxyhemoglobin POC ABG HHb (Measured) ABG Methemoglobin ABG O2 Capacity Hgb O2 Saturation FiO2 Crit Value Called To Crit Value Called By Blood Gas Notified Time Sodium 146 Potassium 3.3 L Chloride 116 H Carbon Dioxide 19 L Anion Gap 15 BUN 24 H Creatinine 0.9 Est GFR ( Amer) > 60 Est GFR (Non-Af Amer) > 60 Random Glucose 82 Calcium 8.0 L Phosphorus Magnesium Total Bilirubin Direct Bilirubin GGT AST ALT Alkaline Phosphatase Lactate Dehydrogenase C-Reactive Protein 434.00 H Total Protein Albumin Globulin Albumin/Globulin Ratio Fluid Source Fluid Appearance Fluid WBC Fluid RBC Fluid Tot Cell Count Fluid Mononuclear Cell Fl Polymorphonucl Cell Fluid Comment Complement C3 Complement C4 CMV Specimen Source CMV DNA Quant PCR CMV Qnt PCR log IU/mL HIV 1&2 Ag/Ab, 4th Gen Blood Type Antibody Screen Crossmatch BBK History Checked 08/14/18 08/15/18 08/15/18 17:00 05:43 06:00 WBC 4.2 L RBC 3.33 L Hgb 9.6 L Hct 28.7 L MCV 86.2 MCH 28.8 MCHC 33.4 RDW 17.4 H Plt Count 38 L* Manual Plt Count MPV 8.6 Neut % (Auto) 31.7 L Lymph % (Auto) 38.0 H Long % (Auto) 28.9 H Eos % (Auto) 0.0 L Baso % (Auto) 1.4 Lymph # (Auto) 1.6 Long # (Auto) 1.2 H Eos # (Auto) 0.0 Baso # (Auto) 0.06 Absolute Neuts (auto) 1.32 L Platelet Evaluation ESR Retic Count Haptoglobin PT INR pCO2 57 H pO2 48.0 L HCO3 19.4 L ABG pH 7.14 L* ABG Total CO2 21.1 L ABG O2 Saturation 87.3 L ABG O2 Content 11.1 L ABG Base Excess -9.5 L ABG Hemoglobin 9.4 L ABG Carboxyhemoglobin 3.3 H POC ABG HHb (Measured) 12.2 H ABG Methemoglobin 0.9 ABG O2 Capacity 12.7 L Hgb O2 Saturation 83.7 L FiO2 60.0 Crit Value Called To Dr. casanova Crit Value Called By Phil jacques Blood Gas Notified Time 600 Sodium Potassium Chloride Carbon Dioxide Anion Gap BUN Creatinine Est GFR ( Amer) Est GFR (Non-Af Amer) Random Glucose Calcium Phosphorus Magnesium Total Bilirubin Direct Bilirubin GGT AST ALT Alkaline Phosphatase Lactate Dehydrogenase C-Reactive Protein Total Protein Albumin Globulin Albumin/Globulin Ratio Fluid Source Fluid Appearance Fluid WBC Fluid RBC Fluid Tot Cell Count Fluid Mononuclear Cell Fl Polymorphonucl Cell Fluid Comment Complement C3 88.0 Complement C4 22.6 CMV Specimen Source CMV DNA Quant PCR CMV Qnt PCR log IU/mL HIV 1&2 Ag/Ab, 4th Gen Blood Type Antibody Screen Crossmatch BBK History Checked 08/15/18 06:00 WBC RBC Hgb Hct MCV MCH MCHC RDW Plt Count Manual Plt Count MPV Neut % (Auto) Lymph % (Auto) Long % (Auto) Eos % (Auto) Baso % (Auto) Lymph # (Auto) Long # (Auto) Eos # (Auto) Baso # (Auto) Absolute Neuts (auto) Platelet Evaluation ESR Retic Count Haptoglobin PT INR pCO2 pO2 HCO3 ABG pH ABG Total CO2 ABG O2 Saturation ABG O2 Content ABG Base Excess ABG Hemoglobin ABG Carboxyhemoglobin POC ABG HHb (Measured) ABG Methemoglobin ABG O2 Capacity Hgb O2 Saturation FiO2 Crit Value Called To Crit Value Called By Blood Gas Notified Time Sodium 149 H Potassium 3.9 Chloride 117 H Carbon Dioxide 22 Anion Gap 13 BUN 28 H Creatinine 1.0 Est GFR ( Amer) > 60 Est GFR (Non-Af Amer) 58 Random Glucose 115 H Calcium 8.3 L Phosphorus 6.5 H Magnesium 2.0 Total Bilirubin 5.5 H Direct Bilirubin GGT AST 22 ALT 21 Alkaline Phosphatase 82 Lactate Dehydrogenase C-Reactive Protein Total Protein 6.3 Albumin 2.4 L Globulin 3.9 Albumin/Globulin Ratio 0.6 L Fluid Source Fluid Appearance Fluid WBC Fluid RBC Fluid Tot Cell Count Fluid Mononuclear Cell Fl Polymorphonucl Cell Fluid Comment Complement C3 Complement C4 CMV Specimen Source CMV DNA Quant PCR CMV Qnt PCR log IU/mL HIV 1&2 Ag/Ab, 4th Gen Blood Type Antibody Screen Crossmatch BBK History Checked Radiology Impressions: Radiology Impressions Chest X-Ray 08/14/18 07:00 IMPRESSION: Endotracheal tube and nasogastric tube remain in satisfactory position. There is no change in the bilateral alveolar and interstitial infiltrates. Assessment/Plan - Assessment and Plan (Free Text) Assessment: Pt is a 53 yo female with a PMH of MDS, AML, sickle cell disease, lung cancer, breast cancer, who presented to [facility] complaining of fever and abdominal pain, rapid response was called 08/13/18 for respiratory failure, pt was transfered to [facility] ICU where she was intubated, a central line was placed, and a BAL was performed. Plan: Neuro - intubated and sedated - propofol - fentanyl Cardio - HTN, tachycardia - hydrocortisone 100mg IV - atenolol, lopressor - ECHO EF42%, findings suggestive of MVP, RVSP 46, no signs of endocarditis - follow up TRINITY, ANCA, anti phospholipid, RF Pulm - COPD, tobacco abuse - hypoxic respiratory failure secondary to ARDS, likely due to diffuse alveolar hemorrhage - V/Q scan low probability for PE - BAL completed, leukopenia with no increase in monocytes, no blasts identified, normocytic/ normochromic anemia, no evidence of hemolysis - monitor respiratory status - proceed with protective lung ventilation - ABG 57/48/7.14 - vent settings: 60%, PEEP5, RR24, TV 300 - harley villa, singular - Pulm consulted, Dr Maurer GI - NPO - CTAP shows diffuse thickening of the terminal ileum - GI consulted, Dr Dela Cruz Heme/Onc - MDS, AML, Sickle cell disease, lung cancer s/p resection, breast cancer s/p right-sided mastectomy, pancytopenia - not a candidate for bone marrow transplant - plt were transfused - possible blast crisis - WBC 4.0 - Hgb 7.6 - manual plt 26 - retic 0.10 - PT 23.1, INR 2.08, Fibrinogen 689, fibrin degrad products >40 - tranexamic acid - C3/C4 wnl - Heme/onc consulted, Dr Lopez Nephro/ - BUN/Cr 1.0/28 ID - procal 43.21 - doxy, vanc, zosyn - CMV, HIV, influenza NEGATIVE - follow up aspergillus, 1-3 B-D glucan - ID consulted, Dr Yessica Rubin - will maintain blood glucose 140-180, accoriding to the NICE-SUGAR trial Pt seen and examined, assessment and plan discussed with Dr Paxton Tran PGY1 - Date & Time Date: 08/15/18 Time: 07:16 <Lavelle Matta - Last Filed: 08/15/18 12:06> CCU Objective - Vital Signs / Intake & Output Vital Signs (Last 4 hours): Vital Signs Temp Pulse BP Pulse Ox 08/15/18 11:15 101/46 L 08/15/18 11:14 99.9 F H 107 H 99 08/15/18 11:00 108/47 L 08/15/18 10:59 99.9 F H 110 H 100 08/15/18 10:45 104/44 L 08/15/18 10:44 99.9 F H 113 H 100 08/15/18 10:30 99.7 F H 120 H 115/53 L 86 L 08/15/18 10:15 99.7 F H 123 H 113/47 L 89 L 08/15/18 10:00 99.7 F H 125 H 113/49 L 95 08/15/18 09:45 99.7 F H 125 H 110/42 L 94 L 08/15/18 09:34 127 H 117/46 L 08/15/18 09:30 99.7 F H 127 H 117/46 L 92 L 08/15/18 09:15 99.7 F H 126 H 122/50 L 94 L 08/15/18 09:00 99.7 F H 122 H 128/56 L 92 L 08/15/18 08:45 99.7 F H 119 H 105/41 L 94 L 08/15/18 08:31 99.7 F H 119 H 104/43 L 100 08/15/18 08:30 99.7 F H 119 H 98 08/15/18 08:15 99.5 F 120 H 108/46 L 100 Intake and Output (Last 8hrs): Intake & Output 08/14/18 08/15/18 08/15/18 22:59 06:59 14:59 Intake Total 1590 250 100 Output Total 500 Balance 1090 250 100 Intake: IV 950 250 100 Right Femoral 950 Blood Product 640 Output: Urine 500 2-way Urethral 500 Other: # Bowel Movements 1 - Medications Active Medications: Active Medications Generic Name Dose Route Start Last Admin Trade Name Freq PRN Reason Stop Dose Admin Albuterol/Ipratropium 3 ml 08/08/18 14:07 08/12/18 03:00 Duoneb 3 Mg/0.5 Mg (3 Ml) Ud IH 3 ml [id number] PRN Administration Shortness of Breath Amlodipine Besylate 10 mg 08/08/18 10:00 08/13/18 10:00 Norvasc PO Not Given DAILY KAYLEIGH Atenolol 50 mg 08/13/18 10:00 08/15/18 09:34 Tenormin PO 50 mg DAILY KAYLEIGH Administration Budesonide 0.5 mg 08/07/18 20:00 08/15/18 07:27 Pulmicort Respules IH 0.5 mg BIDRESP KAYLEIGH Administration Clonazepam 0.5 mg 08/07/18 18:00 08/13/18 12:42 Klonopin PO Not Given BID KAYLEIGH Protocol Diphenhydramine HCl 25 mg 08/12/18 13:50 Benadryl IVP Q8H PRN Allergy symptoms Ergocalciferol 1 cap 08/12/18 10:00 08/12/18 09:24 Drisdol 50,000 Intl Units Cap PO 1 cap SUN KAYLEIGH Administration Fentanyl Citrate 1,000 mcg in 100 mls @ 7.5 mls/hr 08/13/18 11:35 08/15/18 04:01 Fentanyl Citrate/Sodium Chloride 1 Mg/100 Ml IV 75 mcg/hr .[id number] PRN 7.5 mls/hr TITRATE PER MD ORDER Administration Protocol 75 MCG/HR Acetaminophen 1,000 mg in 100 mls @ 400 mls/hr 08/13/18 12:06 08/14/18 23:19 Ofirmev IVPB 08/15/18 12:07 400 mls/hr Q8H PRN Administration fever>101.1 Propofol 1,000 mg in 100 mls @ 1.591 mls/hr 08/13/18 12:48 08/15/18 06:46 Diprivan IV 50 mcg/kg/min .Q24H PRN 15.908 mls/hr TITRATE PER MD ORDER Administration Protocol 5 MCG/KG/MIN Doxycycline Hyclate 100 mg/ 100 mls @ 100 mls/hr 08/13/18 13:30 08/15/18 09:29 Sodium Chloride IVPB 08/20/18 13:31 100 mls/hr Q12 KAYLEIGH Administration Protocol Piperacillin Sod/Tazobactam Sod 100 mls @ 25 mls/hr 08/13/18 14:00 08/15/18 05:14 Zosyn 3.375 In Ns 100ml IVPB 08/20/18 14:01 25 mls/hr Q8 KAYLEIGH Administration Protocol Vancomycin HCl 1 gm in 250 mls @ 167 mls/hr 08/13/18 14:44 08/15/18 02:36 Vancomycin 1gm IVPB 167 mls/hr 0330,1530 KAYLEIGH Administration Protocol NOREPINEPHRINE BIT/0.9 % NACL 4 mg in 250 mls @ 15 mls/hr 08/14/18 11:47 08/15/18 08:41 Levophed 4 Mg/ 250 Ml Ns Premixed IV 7 mcg/min .[id number] PRN 26.25 mls/hr TITRATE PER MD ORDER Administration Protocol 4 MCG/MIN Potassium Chloride 20 meq/ 1,010 mls @ 100 mls/hr 08/14/18 15:02 08/15/18 09:34 Sodium Chloride IV 100 mls/hr .[id number] KAYLEIGH Administration Ibuprofen 400 mg 08/13/18 07:45 Motrin Tab PO Q6H PRN Fever >100.4 F Ipratropium [place] 0.5 mg 08/14/18 14:00 08/15/18 07:27 Atrovent IH 0.5 mg TIDRESP KAYLEIGH Administration Levalbuterol HCl 0.63 mg 08/14/18 14:00 08/15/18 07:27 Xopenex IH 0.63 mg TIDRESP KAYLEIGH Administration Loratadine 10 mg 08/08/18 10:00 08/13/18 10:00 Claritin PO Not Given DAILY KAYLEIGH Losartan Potassium 50 mg 08/07/18 18:00 08/13/18 18:14 Cozaar PO Not Given QPM KAYLEIGH Magnesium Oxide 400 mg 08/07/18 18:00 08/15/18 09:34 Mag-Ox PO 400 mg BID KAYLEIGH Administration Metoprolol Tartrate 5 mg 08/14/18 20:30 08/14/18 20:38 Lopressor IVP 5 mg Q6H PRN Administration HR above 130's Mupirocin 1 gm 08/13/18 20:30 08/15/18 09:35 Bactroban Ointment TOP 2 unit BID KAYLEIGH Administration Nicotine 1 patch 08/07/18 16:45 08/12/18 09:26 Nicoderm Cq TD Not Given DAILY KAYLEIGH Non-Formulary Medication 1 cap 08/08/18 10:00 08/15/18 09:36 Vitamin B Complex [Super B-50 Complex] PO Not Given DAILY [facility] Ondansetron HCl 4 mg 08/08/18 13:17 08/10/18 02:02 Zofran Inj IVP 4 mg Q6H PRN Administration Nausea/Vomiting Oxycodone HCl 5 mg 08/11/18 13:24 08/13/18 04:51 Oxycodone Immediate Release Tab PO 5 mg Q8H PRN Administration Pain, severe (8-10) Pantoprazole Sodium 40 mg 08/13/18 10:00 08/15/18 09:33 Protonix Inj IVP 40 mg DAILY KAYLEIGH Administration Potassium Chloride 20 meq 08/15/18 10:00 Potassium Chloride Oral Soln PO DAILY [facility] Sodium Chloride 0 ml 08/07/18 18:00 08/14/18 21:46 [place] Nasal [place] NS Not Given QID [facility] Tramadol HCl 50 mg 08/11/18 13:22 Ultram PO TID PRN Pain, moderate (4-7) Tranexamic Acid 500 mg 08/13/18 14:00 08/15/18 08:22 Tranexamic Acid IH 500 mg TIDRESP KAYLEIGH Administration - Patient Studies Lab Studies: Microbiology Studies 08/13/18 17:00 Gram Stain - Final Sputum Sputum Culture - Preliminary No growth. 08/13/18 17:00 Fungal Culture - Preliminary Sputum 08/13/18 11:00 Gram Stain - Final Trachasp Sputum Culture - Final NORMAL ORAL SARAH 08/13/18 11:00 MRSA Culture (Admit) - Final Naris MRSA NOT DETECTED 08/11/18 20:45 Blood Culture - Preliminary Blood NO GROWTH AFTER 3 DAYS 08/11/18 20:25 Blood Culture - Preliminary Blood NO GROWTH AFTER 3 DAYS 08/13/18 17:00 Mycobacterial Culture - Preliminary Other: Please Indicate 08/13/18 14:00 C. difficile Antigen & Toxins A,B - Final Stool Lab Studies 08/15/18 08/15/18 08/15/18 Range/Units 10:20 06:00 06:00 WBC 4.2 L (4.5-11.0) 10^3/uL RBC 3.33 L (3.5-6.1) 10^6/uL Hgb 9.6 L (12.0-16.0) g/dL Hct 28.7 L (36.0-48.0) % MCV 86.2 (80.0-105.0) fl MCH 28.8 (25.0-35.0) pg MCHC 33.4 (31.0-37.0) g/dl RDW 17.4 H (11.5-14.5) % Plt Count 38 L* (120.0-450.0) 10^3/uL Manual Plt Count 42 L* (120-450) K/mm3 MPV 8.6 (7.0-11.0) fl Neut % (Auto) 31.7 L (50.0-68.0) % Lymph % (Auto) 38.0 H (22.0-35.0) % Long % (Auto) 28.9 H (1.0-6.0) % Eos % (Auto) 0.0 L (1.5-5.0) % Baso % (Auto) 1.4 (0.0-3.0) % Lymph # (Auto) 1.6 (1.2-3.4) Long # (Auto) 1.2 H (0.1-0.6) Eos # (Auto) 0.0 (0.0-0.7) Baso # (Auto) 0.06 (0.0-2.0) K/mm3 Absolute Neuts (auto) 1.32 L (1.4-6.5) Platelet Evaluation Low (NORMAL) ESR (0.0-20.0) mm/hr Haptoglobin (30.0-200.0) mg/dL PT (9.4-12.5) SECONDS INR pCO2 53 H (35-45) mm/Hg pO2 55.0 L (80-100) mm/Hg HCO3 20.2 L (21-28) mmol/L ABG pH 7.19 L* (7.35-7.45) ABG Total CO2 21.8 L (22-28) mmol.L ABG O2 Saturation 93.2 L (95-98) % ABG O2 Content 12.4 L (15-23) ML/dl ABG Base Excess -7.9 L (-2.0-3.0) mmol/L ABG Hemoglobin 9.8 L (11.7-17.4) g/dL ABG Carboxyhemoglobin 3.2 H (0.5-1.5) % POC ABG HHb (Measured) 6.5 H (0-5) % ABG Methemoglobin 0.9 (0.0-3.0) % ABG O2 Capacity 13.3 L (16-24) mL/dl Hgb O2 Saturation 89.4 L (95.0-98.0) % FiO2 80.0 % Crit Value Called To Rosmery Crit Value Called By Ab Blood Gas Notified Time 1038 Sodium 149 H (132-148) mmol/L Potassium 3.9 (3.6-5.0) mmol/L Chloride 117 H (98-107) mmol/L Carbon Dioxide 22 (21-33) mmol/L Anion Gap 13 (10-20) BUN 28 H (7-21) mg/dL Creatinine 1.0 (0.7-1.2) mg/dl Est GFR ( Amer) > 60 Est GFR (Non-Af Amer) 58 Random Glucose 115 H (70-110) mg/dL Calcium 8.3 L (8.4-10.5) mg/dL Phosphorus 6.5 H (2.5-4.5) mg/dL Magnesium 2.0 (1.7-2.2) mg/dL Total Bilirubin 5.5 H (0.2-1.3) mg/dL AST 22 (14-36) U/L ALT 21 (7-56) U/L Alkaline Phosphatase 82 (38-126) U/L C-Reactive Protein (0.0-9.9) mg/L Total Protein 6.3 (5.8-8.3) g/dL Albumin 2.4 L (3.0-4.8) g/dL Globulin 3.9 gm/dL Albumin/Globulin Ratio 0.6 L (1.1-1.8) Fluid Source Fluid Appearance (CLEAR) Fluid WBC (0.0-300.0) /uL Fluid RBC (0.0-0.0) /uL Fluid Tot Cell Count (0-0) Fluid Mononuclear Cell (0-0) % Fl Polymorphonucl Cell (0-0) % Fluid Comment Complement C3 (88.0-165.0) mg/dL Complement C4 (14.0-44.0) mg/dL CMV Specimen Source CMV DNA Quant PCR (<200) IU/mL CMV Qnt PCR log IU/mL (<2.30) log IU/mL HIV 1&2 Ag/Ab, 4th Gen (Nonreactive) Blood Type Antibody Screen Crossmatch BBK History Checked 08/15/18 08/14/18 08/14/18 Range/Units 05:43 17:00 17:00 WBC (4.5-11.0) 10^3/uL RBC (3.5-6.1) 10^6/uL Hgb (12.0-16.0) g/dL Hct (36.0-48.0) % MCV (80.0-105.0) fl MCH (25.0-35.0) pg MCHC (31.0-37.0) g/dl RDW (11.5-14.5) % Plt Count (120.0-450.0) 10^3/uL Manual Plt Count (120-450) K/mm3 MPV (7.0-11.0) fl Neut % (Auto) (50.0-68.0) % Lymph % (Auto) (22.0-35.0) % Long % (Auto) (1.0-6.0) % Eos % (Auto) (1.5-5.0) % Baso % (Auto) (0.0-3.0) % Lymph # (Auto) (1.2-3.4) Long # (Auto) (0.1-0.6) Eos # (Auto) (0.0-0.7) Baso # (Auto) (0.0-2.0) K/mm3 Absolute Neuts (auto) (1.4-6.5) Platelet Evaluation (NORMAL) ESR (0.0-20.0) mm/hr Haptoglobin (30.0-200.0) mg/dL PT 23.1 H (9.4-12.5) SECONDS INR 2.08 pCO2 57 H (35-45) mm/Hg pO2 48.0 L (80-100) mm/Hg HCO3 19.4 L (21-28) mmol/L ABG pH 7.14 L* (7.35-7.45) ABG Total CO2 21.1 L (22-28) mmol.L ABG O2 Saturation 87.3 L (95-98) % ABG O2 Content 11.1 L (15-23) ML/dl ABG Base Excess -9.5 L (-2.0-3.0) mmol/L ABG Hemoglobin 9.4 L (11.7-17.4) g/dL ABG Carboxyhemoglobin 3.3 H (0.5-1.5) % POC ABG HHb (Measured) 12.2 H (0-5) % ABG Methemoglobin 0.9 (0.0-3.0) % ABG O2 Capacity 12.7 L (16-24) mL/dl Hgb O2 Saturation 83.7 L (95.0-98.0) % FiO2 60.0 % Crit Value Called To Dr. casanova Crit Value Called By Phil jacques Blood Gas Notified Time 600 Sodium (132-148) mmol/L Potassium (3.6-5.0) mmol/L Chloride (98-107) mmol/L Carbon Dioxide (21-33) mmol/L Anion Gap (10-20) BUN (7-21) mg/dL Creatinine (0.7-1.2) mg/dl Est GFR ( Amer) Est GFR (Non-Af Amer) Random Glucose (70-110) mg/dL Calcium (8.4-10.5) mg/dL Phosphorus (2.5-4.5) mg/dL Magnesium (1.7-2.2) mg/dL Total Bilirubin (0.2-1.3) mg/dL AST (14-36) U/L ALT (7-56) U/L Alkaline Phosphatase (38-126) U/L C-Reactive Protein (0.0-9.9) mg/L Total Protein (5.8-8.3) g/dL Albumin (3.0-4.8) g/dL Globulin gm/dL Albumin/Globulin Ratio (1.1-1.8) Fluid Source Fluid Appearance (CLEAR) Fluid WBC (0.0-300.0) /uL Fluid RBC (0.0-0.0) /uL Fluid Tot Cell Count (0-0) Fluid Mononuclear Cell (0-0) % Fl Polymorphonucl Cell (0-0) % Fluid Comment Complement C3 88.0 (88.0-165.0) mg/dL Complement C4 22.6 (14.0-44.0) mg/dL CMV Specimen Source CMV DNA Quant PCR (<200) IU/mL CMV Qnt PCR log IU/mL (<2.30) log IU/mL HIV 1&2 Ag/Ab, 4th Gen (Nonreactive) Blood Type Antibody Screen Crossmatch BBK History Checked 08/14/18 08/14/18 08/14/18 Range/Units 17:00 17:00 13:24 WBC 4.5 (4.5-11.0) 10^3/uL RBC 2.88 L (3.5-6.1) 10^6/uL Hgb 8.4 L (12.0-16.0) g/dL Hct 25.1 L (36.0-48.0) % MCV 87.2 (80.0-105.0) fl MCH 29.2 (25.0-35.0) pg MCHC 33.5 (31.0-37.0) g/dl RDW 15.9 H (11.5-14.5) % Plt Count 12 L* (120.0-450.0) 10^3/uL Manual Plt Count (120-450) K/mm3 MPV 9.4 (7.0-11.0) fl Neut % (Auto) 30.0 L (50.0-68.0) % Lymph % (Auto) 28.3 (22.0-35.0) % Long % (Auto) 40.6 H (1.0-6.0) % Eos % (Auto) 0.0 L (1.5-5.0) % Baso % (Auto) 1.1 (0.0-3.0) % Lymph # (Auto) 1.3 (1.2-3.4) Long # (Auto) 1.8 H (0.1-0.6) Eos # (Auto) 0.0 (0.0-0.7) Baso # (Auto) 0.05 (0.0-2.0) K/mm3 Absolute Neuts (auto) 1.34 L (1.4-6.5) Platelet Evaluation (NORMAL) ESR 130 H (0.0-20.0) mm/hr Haptoglobin (30.0-200.0) mg/dL PT (9.4-12.5) SECONDS INR pCO2 (35-45) mm/Hg pO2 (80-100) mm/Hg HCO3 (21-28) mmol/L ABG pH (7.35-7.45) ABG Total CO2 (22-28) mmol.L ABG O2 Saturation (95-98) % ABG O2 Content (15-23) ML/dl ABG Base Excess (-2.0-3.0) mmol/L ABG Hemoglobin (11.7-17.4) g/dL ABG Carboxyhemoglobin (0.5-1.5) % POC ABG HHb (Measured) (0-5) % ABG Methemoglobin (0.0-3.0) % ABG O2 Capacity (16-24) mL/dl Hgb O2 Saturation (95.0-98.0) % FiO2 % Crit Value Called To Crit Value Called By Blood Gas Notified Time Sodium 146 (132-148) mmol/L Potassium 3.3 L (3.6-5.0) mmol/L Chloride 116 H (98-107) mmol/L Carbon Dioxide 19 L (21-33) mmol/L Anion Gap 15 (10-20) BUN 24 H (7-21) mg/dL Creatinine 0.9 (0.7-1.2) mg/dl Est GFR ( Amer) > 60 Est GFR (Non-Af Amer) > 60 Random Glucose 82 (70-110) mg/dL Calcium 8.0 L (8.4-10.5) mg/dL Phosphorus (2.5-4.5) mg/dL Magnesium (1.7-2.2) mg/dL Total Bilirubin (0.2-1.3) mg/dL AST (14-36) U/L ALT (7-56) U/L Alkaline Phosphatase (38-126) U/L C-Reactive Protein 434.00 H (0.0-9.9) mg/L Total Protein (5.8-8.3) g/dL Albumin (3.0-4.8) g/dL Globulin gm/dL Albumin/Globulin Ratio (1.1-1.8) Fluid Source Peritoneal/ascites Fluid Appearance Bloody (CLEAR) Fluid WBC 40.0 (0.0-300.0) /uL [place]uid RBC 66630.0 H (0.0-0.0) /uL Fluid Tot Cell Count 100 H (0-0) Fluid Mononuclear Cell 73.3 H (0-0) % Fl Polymorphonucl Cell 26.7 H (0-0) % Fluid Comment Cloudy Complement C3 (88.0-165.0) mg/dL Complement C4 (14.0-44.0) mg/dL CMV Specimen Source CMV DNA Quant PCR (<200) IU/mL CMV Qnt PCR log IU/mL (<2.30) log IU/mL HIV 1&2 Ag/Ab, 4th Gen (Nonreactive) Blood Type Antibody Screen Crossmatch BBK History Checked 08/14/18 08/14/18 08/12/18 Range/Units 10:00 08:50 07:00 WBC (4.5-11.0) 10^3/uL RBC (3.5-6.1) 10^6/uL Hgb (12.0-16.0) g/dL Hct (36.0-48.0) % MCV (80.0-105.0) fl MCH (25.0-35.0) pg MCHC (31.0-37.0) g/dl RDW (11.5-14.5) % Plt Count (120.0-450.0) 10^3/uL Manual Plt Count (120-450) K/mm3 MPV (7.0-11.0) fl Neut % (Auto) (50.0-68.0) % Lymph % (Auto) (22.0-35.0) % Long % (Auto) (1.0-6.0) % Eos % (Auto) (1.5-5.0) % Baso % (Auto) (0.0-3.0) % Lymph # (Auto) (1.2-3.4) Long # (Auto) (0.1-0.6) Eos # (Auto) (0.0-0.7) Baso # (Auto) (0.0-2.0) K/mm3 Absolute Neuts (auto) (1.4-6.5) Platelet Evaluation (NORMAL) ESR (0.0-20.0) mm/hr Haptoglobin 321.1 H (30.0-200.0) mg/dL PT (9.4-12.5) SECONDS INR pCO2 (35-45) mm/Hg pO2 (80-100) mm/Hg HCO3 (21-28) mmol/L ABG pH (7.35-7.45) ABG Total CO2 (22-28) mmol.L ABG O2 Saturation (95-98) % ABG O2 Content (15-23) ML/dl ABG Base Excess (-2.0-3.0) mmol/L ABG Hemoglobin (11.7-17.4) g/dL ABG Carboxyhemoglobin (0.5-1.5) % POC ABG HHb (Measured) (0-5) % ABG Methemoglobin (0.0-3.0) % ABG O2 Capacity (16-24) mL/dl Hgb O2 Saturation (95.0-98.0) % FiO2 % Crit Value Called To Crit Value Called By Blood Gas Notified Time Sodium (132-148) mmol/L Potassium (3.6-5.0) mmol/L Chloride (98-107) mmol/L Carbon Dioxide (21-33) mmol/L Anion Gap (10-20) BUN (7-21) mg/dL Creatinine (0.7-1.2) mg/dl Est GFR ( Amer) Est GFR (Non-Af Amer) Random Glucose (70-110) mg/dL Calcium (8.4-10.5) mg/dL Phosphorus (2.5-4.5) mg/dL Magnesium (1.7-2.2) mg/dL Total Bilirubin (0.2-1.3) mg/dL AST (14-36) U/L ALT (7-56) U/L Alkaline Phosphatase (38-126) U/L C-Reactive Protein (0.0-9.9) mg/L Total Protein (5.8-8.3) g/dL Albumin (3.0-4.8) g/dL Globulin gm/dL Albumin/Globulin Ratio (1.1-1.8) Fluid Source Fluid Appearance (CLEAR) Fluid WBC (0.0-300.0) /uL Fluid RBC (0.0-0.0) /uL Fluid Tot Cell Count (0-0) Fluid Mononuclear Cell (0-0) % Fl Polymorphonucl Cell (0-0) % Fluid Comment Complement C3 (88.0-165.0) mg/dL Complement C4 (14.0-44.0) mg/dL CMV Specimen Source CMV DNA Quant PCR (<200) IU/mL CMV Qnt PCR log IU/mL (<2.30) log IU/mL HIV 1&2 Ag/Ab, 4th Gen Nonreactive (Nonreactive) Blood Type B POSITIVE Antibody Screen Negative Crossmatch See Detail BBK History Checked Patient has bt 08/10/18 Range/Units 12:50 WBC (4.5-11.0) 10^3/uL RBC (3.5-6.1) 10^6/uL Hgb (12.0-16.0) g/dL Hct (36.0-48.0) % MCV (80.0-105.0) fl MCH (25.0-35.0) pg MCHC (31.0-37.0) g/dl RDW (11.5-14.5) % Plt Count (120.0-450.0) 10^3/uL Manual Plt Count (120-450) K/mm3 MPV (7.0-11.0) fl Neut % (Auto) (50.0-68.0) % Lymph % (Auto) (22.0-35.0) % Long % (Auto) (1.0-6.0) % Eos % (Auto) (1.5-5.0) % Baso % (Auto) (0.0-3.0) % Lymph # (Auto) (1.2-3.4) Long # (Auto) (0.1-0.6) Eos # (Auto) (0.0-0.7) Baso # (Auto) (0.0-2.0) K/mm3 Absolute Neuts (auto) (1.4-6.5) Platelet Evaluation (NORMAL) ESR (0.0-20.0) mm/hr Haptoglobin (30.0-200.0) mg/dL PT (9.4-12.5) SECONDS INR pCO2 (35-45) mm/Hg pO2 (80-100) mm/Hg HCO3 (21-28) mmol/L ABG pH (7.35-7.45) ABG Total CO2 (22-28) mmol.L ABG O2 Saturation (95-98) % ABG O2 Content (15-23) ML/dl ABG Base Excess (-2.0-3.0) mmol/L ABG Hemoglobin (11.7-17.4) g/dL ABG Carboxyhemoglobin (0.5-1.5) % POC ABG HHb (Measured) (0-5) % ABG Methemoglobin (0.0-3.0) % ABG O2 Capacity (16-24) mL/dl Hgb O2 Saturation (95.0-98.0) % FiO2 % Crit Value Called To Crit Value Called By Blood Gas Notified Time Sodium (132-148) mmol/L Potassium (3.6-5.0) mmol/L Chloride (98-107) mmol/L Carbon Dioxide (21-33) mmol/L Anion Gap (10-20) BUN (7-21) mg/dL Creatinine (0.7-1.2) mg/dl Est GFR ( Amer) Est GFR (Non-Af Amer) Random Glucose (70-110) mg/dL Calcium (8.4-10.5) mg/dL Phosphorus (2.5-4.5) mg/dL Magnesium (1.7-2.2) mg/dL Total Bilirubin (0.2-1.3) mg/dL AST (14-36) U/L ALT (7-56) U/L Alkaline Phosphatase (38-126) U/L C-Reactive Protein (0.0-9.9) mg/L Total Protein (5.8-8.3) g/dL Albumin (3.0-4.8) g/dL Globulin gm/dL Albumin/Globulin Ratio (1.1-1.8) Fluid Source Fluid Appearance (CLEAR) Fluid WBC (0.0-300.0) /uL Fluid RBC (0.0-0.0) /uL Fluid Tot Cell Count (0-0) Fluid Mononuclear Cell (0-0) % Fl Polymorphonucl Cell (0-0) % Fluid Comment Complement C3 (88.0-165.0) mg/dL Complement C4 (14.0-44.0) mg/dL CMV Specimen Source Plasma CMV DNA Quant PCR <200 (<200) IU/mL CMV Qnt PCR log IU/mL <2.30 (<2.30) log IU/mL HIV 1&2 Ag/Ab, 4th Gen (Nonreactive) Blood Type Antibody Screen Crossmatch BBK History Checked Laboratory Results - last 24 hr 08/10/18 08/12/18 08/14/18 12:50 07:00 08:50 WBC RBC Hgb Hct MCV MCH MCHC RDW Plt Count Manual Plt Count MPV Neut % (Auto) Lymph % (Auto) Long % (Auto) Eos % (Auto) Baso % (Auto) Lymph # (Auto) Long # (Auto) Eos # (Auto) Baso # (Auto) Absolute Neuts (auto) Platelet Evaluation ESR Haptoglobin 321.1 H PT INR pCO2 pO2 HCO3 ABG pH ABG Total CO2 ABG O2 Saturation ABG O2 Content ABG Base Excess ABG Hemoglobin ABG Carboxyhemoglobin POC ABG HHb (Measured) ABG Methemoglobin ABG O2 Capacity Hgb O2 Saturation FiO2 Crit Value Called To Crit Value Called By Blood Gas Notified Time Sodium Potassium Chloride Carbon Dioxide Anion Gap BUN Creatinine Est GFR ( Amer) Est GFR (Non-Af Amer) Random Glucose Calcium Phosphorus Magnesium Total Bilirubin AST ALT Alkaline Phosphatase C-Reactive Protein Total Protein Albumin Globulin Albumin/Globulin Ratio Fluid Source Fluid Appearance Fluid WBC Fluid RBC Fluid Tot Cell Count Fluid Mononuclear Cell Fl Polymorphonucl Cell Fluid Comment Complement C3 Complement C4 CMV Specimen Source Plasma CMV DNA Quant PCR <200 CMV Qnt PCR log IU/mL <2.30 HIV 1&2 Ag/Ab, 4th Gen Nonreactive Blood Type Antibody Screen Crossmatch BBK History Checked 08/14/18 08/14/18 08/14/18 10:00 13:24 17:00 WBC 4.5 RBC 2.88 L Hgb 8.4 L Hct 25.1 L MCV 87.2 MCH 29.2 MCHC 33.5 RDW 15.9 H Plt Count 12 L* Manual Plt Count MPV 9.4 Neut % (Auto) 30.0 L Lymph % (Auto) 28.3 Long % (Auto) 40.6 H Eos % (Auto) 0.0 L Baso % (Auto) 1.1 Lymph # (Auto) 1.3 Long # (Auto) 1.8 H Eos # (Auto) 0.0 Baso # (Auto) 0.05 Absolute Neuts (auto) 1.34 L Platelet Evaluation ESR 130 H Haptoglobin PT INR pCO2 pO2 HCO3 ABG pH ABG Total CO2 ABG O2 Saturation ABG O2 Content ABG Base Excess ABG Hemoglobin ABG Carboxyhemoglobin POC ABG HHb (Measured) ABG Methemoglobin ABG O2 Capacity Hgb O2 Saturation FiO2 Crit Value Called To Crit Value Called By Blood Gas Notified Time Sodium Potassium Chloride Carbon Dioxide Anion Gap BUN Creatinine Est GFR ( Amer) Est GFR (Non-Af Amer) Random Glucose Calcium Phosphorus Magnesium Total Bilirubin AST ALT Alkaline Phosphatase C-Reactive Protein Total Protein Albumin Globulin Albumin/Globulin Ratio Fluid Source Peritoneal/ascites Fluid Appearance Bloody Fluid WBC 40.0 Fluid RBC 12202.0 H Fluid Tot Cell Count 100 H Fluid Mononuclear Cell 73.3 H Fl Polymorphonucl Cell 26.7 H Fluid Comment Cloudy Complement C3 Complement C4 CMV Specimen Source CMV DNA Quant PCR CMV Qnt PCR log IU/mL HIV 1&2 Ag/Ab, 4th Gen Blood Type B POSITIVE Antibody Screen Negative Crossmatch See Detail BBK History Checked Patient has bt 08/14/18 08/14/18 08/14/18 17:00 17:00 17:00 WBC RBC Hgb Hct MCV MCH MCHC RDW Plt Count Manual Plt Count MPV Neut % (Auto) Lymph % (Auto) Long % (Auto) Eos % (Auto) Baso % (Auto) Lymph # (Auto) Long # (Auto) Eos # (Auto) Baso # (Auto) Absolute Neuts (auto) Platelet Evaluation ESR Haptoglobin PT 23.1 H INR 2.08 pCO2 pO2 HCO3 ABG pH ABG Total CO2 ABG O2 Saturation ABG O2 Content ABG Base Excess ABG Hemoglobin ABG Carboxyhemoglobin POC ABG HHb (Measured) ABG Methemoglobin ABG O2 Capacity Hgb O2 Saturation FiO2 Crit Value Called To Crit Value Called By Blood Gas Notified Time Sodium 146 Potassium 3.3 L Chloride 116 H Carbon Dioxide 19 L Anion Gap 15 BUN 24 H Creatinine 0.9 Est GFR ( Amer) > 60 Est GFR (Non-Af Amer) > 60 Random Glucose 82 Calcium 8.0 L Phosphorus Magnesium Total Bilirubin AST ALT Alkaline Phosphatase C-Reactive Protein 434.00 H Total Protein Albumin Globulin Albumin/Globulin Ratio Fluid Source Fluid Appearance Fluid WBC Fluid RBC Fluid Tot Cell Count Fluid Mononuclear Cell Fl Polymorphonucl Cell Fluid Comment Complement C3 88.0 Complement C4 22.6 CMV Specimen Source CMV DNA Quant PCR CMV Qnt PCR log IU/mL HIV 1&2 Ag/Ab, 4th Gen Blood Type Antibody Screen Crossmatch BBK History Checked 08/15/18 08/15/18 08/15/18 05:43 06:00 06:00 WBC 4.2 L RBC 3.33 L Hgb 9.6 L Hct 28.7 L MCV 86.2 MCH 28.8 MCHC 33.4 RDW 17.4 H Plt Count 38 L* Manual Plt Count 42 L* MPV 8.6 Neut % (Auto) 31.7 L Lymph % (Auto) 38.0 H Long % (Auto) 28.9 H Eos % (Auto) 0.0 L Baso % (Auto) 1.4 Lymph # (Auto) 1.6 Long # (Auto) 1.2 H Eos # (Auto) 0.0 Baso # (Auto) 0.06 Absolute Neuts (auto) 1.32 L Platelet Evaluation Low ESR Haptoglobin PT INR pCO2 57 H pO2 48.0 L HCO3 19.4 L ABG pH 7.14 L* ABG Total CO2 21.1 L ABG O2 Saturation 87.3 L ABG O2 Content 11.1 L ABG Base Excess -9.5 L ABG Hemoglobin 9.4 L ABG Carboxyhemoglobin 3.3 H POC ABG HHb (Measured) 12.2 H ABG Methemoglobin 0.9 ABG O2 Capacity 12.7 L Hgb O2 Saturation 83.7 L FiO2 60.0 Crit Value Called To Dr. casanova Crit Value Called By Phil jacques Blood Gas Notified Time 600 Sodium 149 H Potassium 3.9 Chloride 117 H Carbon Dioxide 22 Anion Gap 13 BUN 28 H Creatinine 1.0 Est GFR ( Amer) > 60 Est GFR (Non-Af Amer) 58 Random Glucose 115 H Calcium 8.3 L Phosphorus 6.5 H Magnesium 2.0 Total Bilirubin 5.5 H AST 22 ALT 21 Alkaline Phosphatase 82 C-Reactive Protein Total Protein 6.3 Albumin 2.4 L Globulin 3.9 Albumin/Globulin Ratio 0.6 L Fluid Source Fluid Appearance Fluid WBC Fluid RBC Fluid Tot Cell Count Fluid Mononuclear Cell Fl Polymorphonucl Cell Fluid Comment Complement C3 Complement C4 CMV Specimen Source CMV DNA Quant PCR CMV Qnt PCR log IU/mL HIV 1&2 Ag/Ab, 4th Gen Blood Type Antibody Screen Crossmatch BBK History Checked 08/15/18 10:20 WBC RBC Hgb Hct MCV MCH MCHC RDW Plt Count Manual Plt Count MPV Neut % (Auto) Lymph % (Auto) Long % (Auto) Eos % (Auto) Baso % (Auto) Lymph # (Auto) Long # (Auto) Eos # (Auto) Baso # (Auto) Absolute Neuts (auto) Platelet Evaluation ESR Haptoglobin PT INR pCO2 53 H pO2 55.0 L HCO3 20.2 L ABG pH 7.19 L* ABG Total CO2 21.8 L ABG O2 Saturation 93.2 L ABG O2 Content 12.4 L ABG Base Excess -7.9 L ABG Hemoglobin 9.8 L ABG Carboxyhemoglobin 3.2 H POC ABG HHb (Measured) 6.5 H ABG Methemoglobin 0.9 ABG O2 Capacity 13.3 L Hgb O2 Saturation 89.4 L FiO2 80.0 Crit Value Called To Rosmery Crit Value Called By Ab Blood Gas Notified Time 1038 Sodium Potassium Chloride Carbon Dioxide Anion Gap BUN Creatinine Est GFR ( Amer) Est GFR (Non-Af Amer) Random Glucose Calcium Phosphorus Magnesium Total Bilirubin AST ALT Alkaline Phosphatase C-Reactive Protein Total Protein Albumin Globulin Albumin/Globulin Ratio Fluid Source Fluid Appearance Fluid WBC Fluid RBC Fluid Tot Cell Count Fluid Mononuclear Cell Fl Polymorphonucl Cell Fluid Comment Complement C3 Complement C4 CMV Specimen Source CMV DNA Quant PCR CMV Qnt PCR log IU/mL HIV 1&2 Ag/Ab, 4th Gen Blood Type Antibody Screen Crossmatch BBK History Checked Radiology Impressions: Radiology Impressions Chest X-Ray 08/15/18 07:00 IMPRESSION: Endotracheal tube terminates at the emily and nasogastric tube terminates at the gastroesophageal junction. Repositioning is advised. No significant interval change in extensive confluent airspace disease in both lungs superimposed on a background of interstitial pulmonary fibrosis with relative sparing of the right upper lobe. Large round lucencies overlying the right lower lobe could represent pneumatoceles. Attending/Attestation - Attestation I have personally seen and examined this patient.: Yes I have fully participated in the care of the patient.: Yes I have reviewed all pertinent clinical information: Yes Notes (Text): 08/15/18 12:01 The patient was seen and examined at the bedside. Patient care was discussed with resident Medical records, lab studies were reviewed and management issues were discussed and formulated. Agree with above treatment plans as outlined in 's note with addition of the following: Acute Respiratory Failure \ Hypercapnea \ Hypoxemia \ Septic shock \ PNA \ Hemoptysis \ Lung CA \ COPD \ Leukemia \ Thrombocytopenia \ -hemodynamic monitoring to maintain MAP>65; continue vasopressor support with levophed -mechanical ventilation and o2 supplementation to maintain Spo2 >90 Pao2>60 -monitor for TV 6ml\kg IBW and plateau pressure <30 -ABG in AM reviewed and vent settings changed -CXR reviewed -continue nebs and steroids and pulmonary toileting -continue broad spectrum Abx as per ID team and f\u cultures -f\u Bun\Cr and U\o; monitor and replace e-lites; continue IVF as per renal team -Tube feds diet and aspiration precautions -heme\onc team f\u -palliation team f\u appreciated; pt is now DNR as per family request -DVT \ PUD prophylaxis CCM time 33min
[2018-08-15] MEDS: Budesonide 0.5 mg/2 ml Inhal Susp UD IH SCH ×2 (07:27→19:28)
[2018-08-15] MEDS: Levalbuterol 0.63 MG/3 ML Inhal Soln UD IH SCH ×3 (07:27→19:29)
[2018-08-15] MEDS: Ipratropium 0.02% Inhal Soln (0.5 mg/2.5 ml) UD IH SCH ×3 (07:27→19:27)
[2018-08-15] MEDS: Tranexamic Acid 100 mg/ml IH SCH ×3 (08:22→20:30)
[2018-08-15] MEDS: NOREPINEPHRINE BIT/0.9 % NACL 4 MG/250 ML BAG IV PRN ×2 (08:41→16:20)
--- NOTE | 2018-08-15 09:14 | CP.PCM.PN ---
<Stewart Arroyo - Last Filed: 08/15/18 16:20> Subjective - Date & Time of Evaluation Date of Evaluation: 08/15/18 Time of Evaluation: 09:14 - Subjective Subjective: Stewart Arroyo PGY2 GI Progress Note Patient was seen and examined at bedside in ICU. The patient is intubated, remains on vent and on sedation. The patient is now requiring vasopressor support. Objective - Vital Signs/Intake and Output Vital Signs (last 24 hours): Temp Pulse Resp BP Pulse Ox 99.7 F H 119 H 24 104/43 L 100 08/15/18 08:31 08/15/18 08:31 08/13/18 14:00 08/15/18 08:31 08/15/18 08:31 Intake and Output: 08/15/18 08/15/18 06:59 18:59 Intake Total 250 100 Balance 250 100 - Medications Medications: Current Medications Albuterol/Ipratropium (Duoneb 3 Mg/0.5 Mg (3 Ml) Ud) 3 ml IH [id number] PRN PRN Reason: Shortness of Breath Last Admin: 08/12/18 03:00 Dose: 3 ml Amlodipine Besylate (Norvasc) 10 mg PO DAILY [facility] Last Admin: 08/13/18 10:00 Dose: Not Given Atenolol (Tenormin) 50 mg PO DAILY [facility] Last Admin: 08/14/18 10:58 Dose: Not Given Budesonide (Pulmicort Respules) 0.5 mg IH BIDRESP [facility] Last Admin: 08/15/18 07:27 Dose: 0.5 mg Clonazepam (Klonopin) 0.5 mg PO BID [facility]; Protocol Last Admin: 08/13/18 12:42 Dose: Not Given Diphenhydramine HCl (Benadryl) 25 mg IVP Q8H PRN PRN Reason: Allergy symptoms Ergocalciferol (Drisdol 50,000 Intl Units Cap) 1 cap PO SUN [facility] Last Admin: 08/12/18 09:24 Dose: 1 cap Fentanyl Citrate (Fentanyl Citrate/Sodium Chloride 1 Mg/100 Ml) 1,000 mcg in 100 mls @ 7.5 mls/hr IV .[id number] PRN; Protocol PRN Reason: TITRATE PER MD ORDER Last Admin: 08/15/18 04:01 Dose: 75 mcg/hr, 7.5 mls/hr Acetaminophen (Ofirmev) 1,000 mg in 100 mls @ 400 mls/hr IVPB Q8H PRN PRN Reason: fever>101.1 Stop: 08/15/18 12:07 Last Admin: 08/14/18 23:19 Dose: 400 mls/hr Propofol (Diprivan) 1,000 mg in 100 mls @ 1.591 mls/hr IV .Q24H PRN; Protocol PRN Reason: TITRATE PER MD ORDER Last Admin: 08/15/18 06:46 Dose: 50 mcg/kg/min, 15.908 mls/hr Doxycycline Hyclate 100 mg/ (Sodium Chloride) 100 mls @ 100 mls/hr IVPB Q12 [facility]; Protocol Stop: 08/20/18 13:31 Last Admin: 08/14/18 21:59 Dose: 100 mls/hr Piperacillin Sod/Tazobactam Sod (Zosyn 3.375 In Ns 100ml) 100 mls @ 25 mls/hr IVPB Q8 [facility]; Protocol Stop: 08/20/18 14:01 Last Admin: 08/15/18 05:14 Dose: 25 mls/hr Vancomycin HCl (Vancomycin 1gm) 1 gm in 250 mls @ 167 mls/hr IVPB 0330,1530 [facility]; Protocol Last Admin: 08/15/18 02:36 Dose: 167 mls/hr Sodium Chloride (Sodium Chloride 0.9%) 1,000 mls @ 100 mls/hr IV .Q10H [facility] Last Admin: 08/14/18 04:34 Dose: 100 mls/hr NOREPINEPHRINE BIT/0.9 % NACL (Levophed 4 Mg/ 250 Ml Ns Premixed) 4 mg in 250 mls @ 15 mls/hr IV .[id number] PRN; Protocol PRN Reason: TITRATE PER MD ORDER Last Admin: 08/15/18 08:41 Dose: 7 mcg/min, 26.25 mls/hr Potassium Chloride 20 meq/ (Sodium Chloride) 1,010 mls @ 100 mls/hr IV .Q10H6M [facility] Ibuprofen (Motrin Tab) 400 mg PO Q6H PRN PRN Reason: Fever >100.4 F Ipratropium [place] (Atrovent) 0.5 mg IH [facility]ID[facility]P [facility] Last Admin: 08/15/18 07:27 Dose: 0.5 mg Levalbuterol HCl (Xopenex) 0.63 mg IH TIDRESP [facility] Last Admin: 08/15/18 07:27 Dose: 0.63 mg Loratadine (Claritin) 10 mg PO DAILY [facility] Last Admin: 08/13/18 10:00 Dose: Not Given Losartan Potassium (Cozaar) 50 mg PO QPM [facility] Last Admin: 08/13/18 18:14 Dose: Not Given Magnesium Oxide (Mag-Ox) 400 mg PO BID [facility] Last Admin: 08/14/18 18:46 Dose: 400 mg Metoprolol Tartrate (Lopressor) 5 mg IVP Q6H PRN PRN Reason: HR above 130's Last Admin: 08/14/18 20:38 Dose: 5 mg Montelukast Sodium (Singulair) 10 mg PO DAILY [facility] Last Admin: 08/14/18 10:58 Dose: Not Given Mupirocin (Bactroban Ointment) 1 gm TOP BID [facility] Last Admin: 08/14/18 18:43 Dose: 1 unit Nicotine (Nicoderm Cq) 1 patch TD DAILY [facility] Last Admin: 08/12/18 09:26 Dose: Not Given Non-Formulary Medication (Vitamin B Complex [Super B-50 Complex]) 1 cap PO DAILY [facility] Last Admin: 08/14/18 10:59 Dose: Not Given Ondansetron HCl (Zofran Inj) 4 mg IVP Q6H PRN PRN Reason: Nausea/Vomiting Last Admin: 08/10/18 02:02 Dose: 4 mg Oxycodone HCl (Oxycodone Immediate Release Tab) 5 mg PO Q8H PRN PRN Reason: Pain, severe (8-10) Last Admin: 08/13/18 04:51 Dose: 5 mg Pantoprazole Sodium (Protonix Inj) 40 mg IVP DAILY [facility] Last Admin: 08/14/18 10:57 Dose: 40 mg Potassium Chloride (K-Dur 20 Meq Er Tab) 20 meq PO DAILY [facility] Last Admin: 08/14/18 10:55 Dose: 20 meq Sodium Chloride ([place] Nasal [place]) 0 ml NS QID [facility] Last Admin: 08/14/18 21:46 Dose: Not Given Tramadol HCl (Ultram) 50 mg PO TID PRN PRN Reason: Pain, moderate (4-7) Tranexamic Acid (Tranexamic Acid) 500 mg IH TIDRESP [facility] Last Admin: 08/15/18 08:22 Dose: 500 mg - Labs Labs: 08/15/18 06:00 08/15/18 06:00 PT 23.1 SECONDS (9.4-12.5) H 08/14/18 17:00 INR 2.08 08/14/18 17:00 APTT 30.6 Seconds (26.9-38.3) 08/13/18 17:10 - Constitutional Appears: Cachectic, Chronically Ill - Head Exam Head Exam: ATRAUMATIC, NORMAL INSPECTION - Eye Exam Eye Exam: EOMI, Scleral icterus - ENT Exam ENT Exam: Mucous Membranes Moist Additional comments: ETT/OGT in place - Neck Exam Neck Exam: Full ROM, Normal Inspection - Respiratory Exam Respiratory Exam: Crackles (bibasilar), Decreased breath sounds. absent: Respiratory Distress - Cardiovascular Exam Cardiovascular Exam: Tachycardia, +S1, +S2 - GI/Abdominal Exam GI & Abdominal Exam: Soft, Tenderness (diffuse mild), Normal Bowel Sounds. absent: Distended - Extremities Exam Extremities Exam: Full ROM, Normal Inspection - Neurological Exam Neurological Exam: Alert, Awake - Skin Skin Exam: Normal Color, Warm Assessment and Plan - Assessment and Plan (Free Text) Assessment: 53 year old female with a PMH of MDS (high grade, s/p chemotherapy), immunosuppression, lung cancer (s/p lobectomy, 2017), breast cancer s/p R breast mastectomy (2004), COPD, and endocarditis who is admitted for fevers. Patient complaining of mild abdominal pain. Labs and scans were reviewed. CT abd showing terminal ileitis, cdiff was negative for toxin x2. V/Q scan was done showing low probability for PE. Due to blood-tinged sputum and ensuing respiratory distress, patient was transferred to ICU, intubated and underwent BAL. She remains in ICU with sedation and on vent at this time. Isolated conjugated hyperbilirubinema is noted suggesting sepsis vs drug-induced hepatotoxicty; scans reviewed showing no obstructive biliary etiology. Plan: - cont ICU management - Abx per ID - would recommend Vanc PO for c.diff empiric treatment - NPO - PPI for GI ppx in ICU pt - monitor H/H; transfusing per Heme/Onc - Palliative care is following the case - no endoscopic intervention required at this time - further recs per Dr. Dela Cruz Case was reviewed and discussed with Dr. Dela Cruz <Efrem Dela Cruz V - Last Filed: 08/15/18 22:18> Objective - Vital Signs/Intake and Output Vital Signs (last 24 hours): Temp Pulse Resp BP Pulse Ox 100.0 F H 100 H 24 96/48 L 90 L 08/15/18 16:15 08/15/18 18:00 08/13/18 14:00 08/15/18 18:00 08/15/18 18:00 Intake and Output: 08/15/18 08/16/18 18:59 06:59 Intake Total 2610 Output Total 500 Balance 2110 - Medications Medications: Current Medications Albuterol/Ipratropium (Duoneb 3 Mg/0.5 Mg (3 Ml) Ud) 3 ml IH [id number] PRN PRN Reason: Shortness of Breath Last Admin: 08/12/18 03:00 Dose: 3 ml Amlodipine Besylate (Norvasc) 10 mg PO DAILY [facility] Last Admin: 08/13/18 10:00 Dose: Not Given Atenolol (Tenormin) 50 mg PO DAILY [facility] Last Admin: 08/15/18 09:34 Dose: 50 mg Budesonide (Pulmicort Respules) 0.5 mg IH BIDRESP [facility] Last Admin: 08/15/18 19:28 Dose: 0.5 mg Clonazepam (Klonopin) 0.5 mg PO BID [facility]; Protocol Last Admin: 08/13/18 12:42 Dose: Not Given Diphenhydramine HCl (Benadryl) 25 mg IVP Q8H PRN PRN Reason: Allergy symptoms Ergocalciferol (Drisdol 50,000 Intl Units Cap) 1 cap PO SUN [facility] Last Admin: 08/12/18 09:24 Dose: 1 cap Fentanyl Citrate (Fentanyl Citrate/Sodium Chloride 1 Mg/100 Ml) 1,000 mcg in 100 mls @ 7.5 mls/hr IV .[id number] PRN; Protocol PRN Reason: TITRATE PER MD ORDER Last Admin: 08/15/18 16:20 Dose: 75 mcg/hr, 7.5 mls/hr Propofol (Diprivan) 1,000 mg in 100 mls @ 1.591 mls/hr IV .Q24H PRN; Protocol PRN Reason: TITRATE PER MD ORDER Last Admin: 08/15/18 18:40 Dose: 50 mcg/kg/min, 15.908 mls/hr Doxycycline Hyclate 100 mg/ (Sodium Chloride) 100 mls @ 100 mls/hr IVPB Q12 [facility]; Protocol Stop: 08/20/18 13:31 Last Admin: 08/15/18 21:17 Dose: 100 mls/hr Piperacillin Sod/Tazobactam Sod (Zosyn 3.375 In Ns 100ml) 100 mls @ 25 mls/hr IVPB Q8 [facility]; Protocol Stop: 08/20/18 14:01 Last Admin: 08/15/18 21:19 Dose: 25 mls/hr Vancomycin HCl (Vancomycin 1gm) 1 gm in 250 mls @ 167 mls/hr IVPB 0330,1530 [facility]; Protocol Last Admin: 08/15/18 15:32 Dose: 167 mls/hr NOREPINEPHRINE BIT/0.9 % NACL (Levophed 4 Mg/ 250 Ml Ns Premixed) 4 mg in 250 mls @ 15 mls/hr IV .[id number] PRN; Protocol PRN Reason: TITRATE PER MD ORDER Last Admin: 08/15/18 16:20 Dose: 7 mcg/min, 26.25 mls/hr Potassium Chloride 20 meq/ (Sodium Chloride) 1,010 mls @ 100 mls/hr IV .Q10H6M [facility] Last Admin: 08/15/18 15:29 Dose: 100 mls/hr Ibuprofen (Motrin Tab) 400 mg PO Q6H PRN PRN Reason: Fever >100.4 F Ipratropium [place] (Atrovent) 0.5 mg IH TIDRESP [facility] Last Admin: 08/15/18 19:27 Dose: 0.5 mg Levalbuterol HCl (Xopenex) 0.63 mg IH TIDRESP [facility] Last Admin: 08/15/18 19:29 Dose: 0.63 mg Loratadine (Claritin) 10 mg PO DAILY [facility] Last Admin: 08/13/18 10:00 Dose: Not Given Losartan Potassium (Cozaar) 50 mg PO QPM [facility] Last Admin: 08/13/18 18:14 Dose: Not Given Magnesium Oxide (Mag-Ox) 400 mg PO BID [facility] Last Admin: 08/15/18 17:11 Dose: 400 mg Metoprolol Tartrate (Lopressor) 5 mg IVP Q6H PRN PRN Reason: HR above 130's Last Admin: 08/14/18 20:38 Dose: 5 mg Mupirocin (Bactroban Ointment) 1 gm TOP BID [facility] Last Admin: 08/15/18 17:11 Dose: 2 unit Nicotine (Nicoderm Cq) 1 patch TD DAILY [facility] Last Admin: 08/12/18 09:26 Dose: Not Given Non-Formulary Medication (Vitamin B Complex [Super B-50 Complex]) 1 cap PO DAILY [facility] Last Admin: 08/15/18 09:36 Dose: Not Given Ondansetron HCl (Zofran Inj) 4 mg IVP Q6H PRN PRN Reason: Nausea/Vomiting Last Admin: 08/10/18 02:02 Dose: 4 mg Pantoprazole Sodium (Protonix Inj) 40 mg IVP DAILY [facility] Last Admin: 08/15/18 09:33 Dose: 40 mg Potassium Chloride (Potassium Chloride Oral Soln) 20 meq PO DAILY [facility] Last Admin: 08/15/18 15:30 Dose: Not Given Sodium Chloride ([place] Nasal [place]) 0 ml NS QID [facility] Last Admin: 08/15/18 21:20 Dose: Not Given Tramadol HCl (Ultram) 50 mg PO TID PRN PRN Reason: Pain, moderate (4-7) Tranexamic Acid (Tranexamic Acid) 500 mg IH TIDRESP [facility] Last Admin: 08/15/18 20:30 Dose: 500 mg - Labs Labs: 08/15/18 06:00 08/15/18 06:00 PT 23.1 SECONDS (9.4-12.5) H 08/14/18 17:00 INR 2.08 08/14/18 17:00 APTT 30.6 Seconds (26.9-38.3) 08/13/18 17:10 Attending/Attestation - Attestation I have personally seen and examined this patient.: Yes I have fully participated in the care of the patient.: Yes I have reviewed all pertinent clinical information, including history, physical exam and plan: Yes Notes (Text): This patient was seen and evaluated earlier along with the resident. This is an addendum to the GI progress report dictated by the certified medical technician. Patient remains on vent. LFTs is stabilized with a slight drop in total bilirubin. The bilirubin is mainly direct bilirubin. Transaminases and alkaline phosphatase are unremarkable. Sonogram done on 327 was reviewed which showed no gallstones CBD normal. The likely cause of her elevated liver enzymes unclear of the differential diagnosis to include hepatic congestion, drug-induced etiology probably multifactorial Sepsis continue antibiotics as per ID. Patient does have colitis C. difficile has been negative on IV vancomycin Overall prognosis of the patient with advanced MDS in transition to leukemia is guarded. Other comorbidities include a history of lung cancer breast cancer. History of significant thrombocytopenia multiple transfusions in the past Palliative care note was reviewed. 08/15/18 22:15
--- NOTE | 2018-08-15 09:31 | RAD ---
Date of service: 08/15/2018 HISTORY: follow up infiltrate COMPARISON: 08/14/2018 FINDINGS: Endotracheal tube terminates at the emily. The nasogastric tube terminates at the gastroesophageal junction LUNGS: There is redemonstration for confluent airspace disease in both lungs superimposed on diffuse interstitial fibrosis with relative sparing of the right upper lobe. There are large presumable pneumatoceles in the right lower lobe. PLEURA: Suspect small effusions. No pneumothorax with CARDIOVASCULAR: The heart is normal in size. No aortic atherosclerotic calcifications present. OSSEOUS STRUCTURES: Within normal limits for the patient's age. VISUALIZED UPPER ABDOMEN: Normal. OTHER FINDINGS: None. IMPRESSION: Endotracheal tube terminates at the emily and nasogastric tube terminates at the gastroesophageal junction. Repositioning is advised. No significant interval change in extensive confluent airspace disease in both lungs superimposed on a background of interstitial pulmonary fibrosis with relative sparing of the right upper lobe. Large round lucencies overlying the right lower lobe could represent pneumatoceles.
[2018-08-15] MEDS: Magnesium Oxide 400 mg Tab UD PO SCH ×2 (09:34→17:11)
[2018-08-15] MEDS: Potassium Chloride 20 mEq ER Tab PO SCH (09:34)
[2018-08-15] MEDS: Mupirocin 2% Ointment 15 GM TUBE TOP SCH ×2 (09:35→17:11)
[2018-08-15] MEDS: Non Formulary Medication (Vitamin B Complex [Super B-50 Complex] 1 CAP) PO SCH (09:36)
--- NOTE | 2018-08-15 09:37 | CP.PCM.PN ---
Subjective - Date & Time of Evaluation Date of Evaluation: 08/15/18 Time of Evaluation: 09:31 - Subjective Subjective: Christopher Roberson DO, PGY-1 Hematology/Oncology Progress Note for Dr. Lopez Patient was seen and examined at bedside this AM. She remains intubated, sedated on propofol and fentanyl drips. She continues to require pressor support. Feeds were started yesterday. Objective - Vital Signs/Intake and Output Vital Signs (last 24 hours): Temp Pulse Resp BP Pulse Ox 99.7 F H 119 H 24 104/43 L 100 08/15/18 08:31 08/15/18 08:31 08/13/18 14:00 08/15/18 08:31 08/15/18 08:31 Intake and Output: 08/15/18 08/15/18 06:59 18:59 Intake Total 250 100 Balance 250 100 - Medications Medications: Current Medications Albuterol/Ipratropium (Duoneb 3 Mg/0.5 Mg (3 Ml) Ud) 3 ml IH [id number] PRN PRN Reason: Shortness of Breath Last Admin: 08/12/18 03:00 Dose: 3 ml Amlodipine Besylate (Norvasc) 10 mg PO DAILY [facility] Last Admin: 08/13/18 10:00 Dose: Not Given Atenolol (Tenormin) 50 mg PO DAILY [facility] Last Admin: 08/14/18 10:58 Dose: Not Given Budesonide (Pulmicort Respules) 0.5 mg IH BIDRESP [facility] Last Admin: 08/15/18 07:27 Dose: 0.5 mg Clonazepam (Klonopin) 0.5 mg PO BID [facility]; Protocol Last Admin: 08/13/18 12:42 Dose: Not Given Diphenhydramine HCl (Benadryl) 25 mg IVP Q8H PRN PRN Reason: Allergy symptoms Ergocalciferol (Drisdol 50,000 Intl Units Cap) 1 cap PO SUN [facility] Last Admin: 08/12/18 09:24 Dose: 1 cap Fentanyl Citrate (Fentanyl Citrate/Sodium Chloride 1 Mg/100 Ml) 1,000 mcg in 100 mls @ 7.5 mls/hr IV .[id number] PRN; Protocol PRN Reason: TITRATE PER MD ORDER Last Admin: 08/15/18 04:01 Dose: 75 mcg/hr, 7.5 mls/hr Acetaminophen (Ofirmev) 1,000 mg in 100 mls @ 400 mls/hr IVPB Q8H PRN PRN Reason: fever>101.1 Stop: 08/15/18 12:07 Last Admin: 08/14/18 23:19 Dose: 400 mls/hr Propofol (Diprivan) 1,000 mg in 100 mls @ 1.591 mls/hr IV .Q24H PRN; Protocol PRN Reason: TITRATE PER MD ORDER Last Admin: 08/15/18 06:46 Dose: 50 mcg/kg/min, 15.908 mls/hr Doxycycline Hyclate 100 mg/ (Sodium Chloride) 100 mls @ 100 mls/hr IVPB Q12 [facility]; Protocol Stop: 08/20/18 13:31 Last Admin: 08/14/18 21:59 Dose: 100 mls/hr Piperacillin Sod/Tazobactam Sod (Zosyn 3.375 In Ns 100ml) 100 mls @ 25 mls/hr IVPB Q8 [facility]; Protocol Stop: 08/20/18 14:01 Last Admin: 08/15/18 05:14 Dose: 25 mls/hr Vancomycin HCl (Vancomycin 1gm) 1 gm in 250 mls @ 167 mls/hr IVPB 0330,1530 [facility]; Protocol Last Admin: 08/15/18 02:36 Dose: 167 mls/hr Sodium Chloride (Sodium Chloride 0.9%) 1,000 mls @ 100 mls/hr IV .Q10H [facility] Last Admin: 08/14/18 04:34 Dose: 100 mls/hr NOREPINEPHRINE BIT/0.9 % NACL (Levophed 4 Mg/ 250 Ml Ns Premixed) 4 mg in 250 mls @ 15 mls/hr IV .[id number] PRN; Protocol PRN Reason: TITRATE PER MD ORDER Last Admin: 08/15/18 08:41 Dose: 7 mcg/min, 26.25 mls/hr Potassium Chloride 20 meq/ (Sodium Chloride) 1,010 mls @ 100 mls/hr IV .Q10H6M [facility] Ibuprofen (Motrin Tab) 400 mg PO Q6H PRN PRN Reason: Fever >100.4 F Ipratropium [place] (Atrovent) 0.5 mg IH TIDRESP [facility] Last Admin: 08/15/18 07:27 Dose: 0.5 mg Levalbuterol HCl (Xopenex) 0.63 mg IH TIDRESP [facility] Last Admin: 08/15/18 07:27 Dose: 0.63 mg Loratadine (Claritin) 10 mg PO DAILY [facility] Last Admin: 08/13/18 10:00 Dose: Not Given Losartan Potassium (Cozaar) 50 mg PO QPM [facility] Last Admin: 08/13/18 18:14 Dose: Not Given Magnesium Oxide (Mag-Ox) 400 mg PO BID [facility] Last Admin: 08/14/18 18:46 Dose: 400 mg Metoprolol Tartrate (Lopressor) 5 mg IVP Q6H PRN PRN Reason: HR above 130's Last Admin: 08/14/18 20:38 Dose: 5 mg Montelukast Sodium (Singulair) 10 mg PO DAILY [facility] Last Admin: 08/14/18 10:58 Dose: Not Given Mupirocin (Bactroban Ointment) 1 gm TOP BID [facility] Last Admin: 08/14/18 18:43 Dose: 1 unit Nicotine (Nicoderm Cq) 1 patch TD DAILY [facility] Last Admin: 08/12/18 09:26 Dose: Not Given Non-Formulary Medication (Vitamin B Complex [Super B-50 Complex]) 1 cap PO DAILY [facility] Last Admin: 08/14/18 10:59 Dose: Not Given Ondansetron HCl (Zofran Inj) 4 mg IVP Q6H PRN PRN Reason: Nausea/Vomiting Last Admin: 08/10/18 02:02 Dose: 4 mg Oxycodone HCl (Oxycodone Immediate Release Tab) 5 mg PO Q8H PRN PRN Reason: Pain, severe (8-10) Last Admin: 08/13/18 04:51 Dose: 5 mg Pantoprazole Sodium (Protonix Inj) 40 mg IVP DAILY [facility] Last Admin: 08/14/18 10:57 Dose: 40 mg Potassium Chloride (K-Dur 20 Meq Er Tab) 20 meq PO DAILY [facility] Last Admin: 08/14/18 10:55 Dose: 20 meq Sodium Chloride ([place] Nasal [place]) 0 ml NS QID [facility] Last Admin: 08/14/18 21:46 Dose: Not Given Tramadol HCl (Ultram) 50 mg PO TID PRN PRN Reason: Pain, moderate (4-7) Tranexamic Acid (Tranexamic Acid) 500 mg IH TIDRESP [facility] Last Admin: 08/15/18 08:22 Dose: 500 mg - Labs Labs: 08/15/18 06:00 08/15/18 06:00 PT 23.1 SECONDS (9.4-12.5) H 08/14/18 17:00 INR 2.08 08/14/18 17:00 APTT 30.6 Seconds (26.9-38.3) 08/13/18 17:10 - Constitutional Appears: Chronically Ill - Head Exam Head Exam: ATRAUMATIC, NORMOCEPHALIC - Eye Exam Eye Exam: EOMI, PERRL - ENT Exam ENT Exam: Mucous Membranes Moist - Neck Exam Neck Exam: absent: Lymphadenopathy - Respiratory Exam Respiratory Exam: Clear to Ausculation Bilateral, Rhonchi. absent: Rales, Wheezes Additional comments: on ventilator, breath sounds auscultated b/l - Cardiovascular Exam Cardiovascular Exam: Tachycardia, +S1, +S2. absent: Gallop, Rubs, Murmur - GI/Abdominal Exam GI & Abdominal Exam: Soft. 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 She appeared acutely ill at that time with Tmax of 101.2 and tachycardic. She was subsequently sent to ED for evaluation, was admitted, and continues to be on broad spectrum abx. During hospital stay, patient became increasingly tachypneic and hypoxemic, prompting urgent transfer to MICU. 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 Flow cytometry results completed on admission show high blast population consistent with blast crisis Flow cytometry report given to family to discuss prognosis After discussion with family, patient is now DNR H/H, platelets improved s/p transfusion of 1 u platelets, 2 u PRBCs yesterday, continue transfusions PRN Received decitabine therapy in the past Patient was evaluated at [place], was found to not be a candidate for bone marrow transplant Bronchoscopy found diffuse R-sided alveolar hemorrhage, may be 2/2 lovenox treatment for LUE DVT May also be related to patient's history of SLE and/or sickle cell disease, lower suspicion for hemorrhage related to AML given low WBC count F/u autoimmune serology w/u Guarded prognosis Palliative care following, all recs appreciated Hypokalemia Resolved Continue to replete with maintenance IVF per nephrology recs Nephrology following, all recs appreciated LUE DVT Likely 2/2 PICC line on top of hypercoaguable state from hematologic malignancy Lovenox held for concern of worsening thrombocytopenia Normocytic anemia 2/2 MDS which has now progressed to AML Improved, continue to monitor H/H and for s/sx HD compromise Fever, tachycardia, tachypnea Suspect persistent fever is in part 2/2 probable blast crisis Continue abx, ventilator management [facility] ID and [facility] fever May continue atenolol, lopressor with holding parameters per cardiology recs Cardiology, ID following, all recs appreciated Thank you for this interesting consult, we will continue to follow. Case and plan reviewed and discussed with my attending Dr. John Roberson DO IM Resident PGY-1
[2018-08-15 09:55] LABS: PLATELET COUNT MANUAL 42 K/mm3 (120-450)
[2018-08-15 09:56] LABS: PLATELET ESTIMATE LOW (NORMAL)
[2018-08-15] MEDS ORDERED: Potassium Chloride 20 mEq/15 ml LIQ UD PO SCH (10:00)
[2018-08-15 10:38] LABS: ARTERIAL BLOOD GAS HCO3 20.2 mmol/L (21-28); ARTERIAL BLOOD GAS HEMOGLOBIN 9.8 g/dL (11.7-17.4); ARTERIAL BLOOD GAS O2 CAPACITY 13.3 mL/dl (16-24); ARTERIAL BLOOD GAS O2 CONTENT 12.4 ML/dl (15-23); ARTERIAL BLOOD GAS O2 SAT 93.2 % (95-98); ARTERIAL BLOOD GAS PCO2 53 mm/Hg (35-45); ARTERIAL BLOOD GAS PH 7.19 (7.35-7.45); ARTERIAL BLOOD GAS TCO2 21.8 mmol.L (22-28)
--- NOTE | 2018-08-15 13:01 | CP.PCM.PN ---
Subjective - Date & Time of Evaluation Date of Evaluation: 08/15/18 Time of Evaluation: 10:00 - Subjective Subjective: Intubated, sedated Objective - Vital Signs/Intake and Output Vital Signs (last 24 hours): Temp Pulse Resp BP Pulse Ox 99.9 F H 107 H 24 101/46 L 99 08/15/18 11:14 08/15/18 11:14 08/13/18 14:00 08/15/18 11:15 08/15/18 11:14 Intake and Output: 08/15/18 08/15/18 06:59 18:59 Intake Total 250 100 Balance 250 100 - Medications Medications: Current Medications Albuterol/Ipratropium (Duoneb 3 Mg/0.5 Mg (3 Ml) Ud) 3 ml IH [id number] PRN PRN Reason: Shortness of Breath Last Admin: 08/12/18 03:00 Dose: 3 ml Amlodipine Besylate (Norvasc) 10 mg PO DAILY [facility] Last Admin: 08/13/18 10:00 Dose: Not Given Atenolol (Tenormin) 50 mg PO DAILY [facility] Last Admin: 08/15/18 09:34 Dose: 50 mg Budesonide (Pulmicort Respules) 0.5 mg IH BIDRESP [facility] Last Admin: 08/15/18 07:27 Dose: 0.5 mg Clonazepam (Klonopin) 0.5 mg PO BID [facility]; Protocol Last Admin: 08/13/18 12:42 Dose: Not Given Diphenhydramine HCl (Benadryl) 25 mg IVP Q8H PRN PRN Reason: Allergy symptoms Ergocalciferol (Drisdol 50,000 Intl Units Cap) 1 cap PO SUN [facility] Last Admin: 08/12/18 09:24 Dose: 1 cap Fentanyl Citrate (Fentanyl Citrate/Sodium Chloride 1 Mg/100 Ml) 1,000 mcg in 100 mls @ 7.5 mls/hr IV .[id number] PRN; Protocol PRN Reason: TITRATE PER MD ORDER Last Admin: 08/15/18 04:01 Dose: 75 mcg/hr, 7.5 mls/hr Propofol (Diprivan) 1,000 mg in 100 mls @ 1.591 mls/hr IV .Q24H PRN; Protocol PRN Reason: TITRATE PER MD ORDER Last Admin: 08/15/18 06:46 Dose: 50 mcg/kg/min, 15.908 mls/hr Doxycycline Hyclate 100 mg/ (Sodium Chloride) 100 mls @ 100 mls/hr IVPB Q12 [facility]; Protocol Stop: 08/20/18 13:31 Last Admin: 08/15/18 09:29 Dose: 100 mls/hr Piperacillin Sod/Tazobactam Sod (Zosyn 3.375 In Ns 100ml) 100 mls @ 25 mls/hr IVPB Q8 [facility]; Protocol Stop: 08/20/18 14:01 Last Admin: 08/15/18 05:14 Dose: 25 mls/hr Vancomycin HCl (Vancomycin 1gm) 1 gm in 250 mls @ 167 mls/hr IVPB 0330,1530 [facility]; Protocol Last Admin: 08/15/18 02:36 Dose: 167 mls/hr NOREPINEPHRINE BIT/0.9 % NACL (Levophed 4 Mg/ 250 Ml Ns Premixed) 4 mg in 250 mls @ 15 mls/hr IV .[id number] PRN; Protocol PRN Reason: TITRATE PER MD ORDER Last Admin: 08/15/18 08:41 Dose: 7 mcg/min, 26.25 mls/hr Potassium Chloride 20 meq/ (Sodium Chloride) 1,010 mls @ 100 mls/hr IV .Q10H6M [facility] Last Admin: 08/15/18 09:34 Dose: 100 mls/hr Ibuprofen (Motrin Tab) 400 mg PO Q6H PRN PRN Reason: Fever >100.4 F Ipratropium [place] (Atrovent) 0.5 mg IH TIDRESP [facility] Last Admin: 08/15/18 07:27 Dose: 0.5 mg Levalbuterol HCl (Xopenex) 0.63 mg IH TIDRESP [facility] Last Admin: 08/15/18 07:27 Dose: 0.63 mg Loratadine (Claritin) 10 mg PO DAILY [facility] Last Admin: 08/13/18 10:00 Dose: Not Given Losartan Potassium (Cozaar) 50 mg PO QPM [facility] Last Admin: 08/13/18 18:14 Dose: Not Given Magnesium Oxide (Mag-Ox) 400 mg PO BID [facility] Last Admin: 08/15/18 09:34 Dose: 400 mg Metoprolol Tartrate (Lopressor) 5 mg IVP Q6H PRN PRN Reason: HR above 130's Last Admin: 08/14/18 20:38 Dose: 5 mg Mupirocin (Bactroban Ointment) 1 gm TOP BID [facility] Last Admin: 08/15/18 09:35 Dose: 2 unit Nicotine (Nicoderm Cq) 1 patch TD DAILY [facility] Last Admin: 08/12/18 09:26 Dose: Not Given Non-Formulary Medication (Vitamin B Complex [Super B-50 Complex]) 1 cap PO DAILY [facility] Last Admin: 08/15/18 09:36 Dose: Not Given Ondansetron HCl (Zofran Inj) 4 mg IVP Q6H PRN PRN Reason: Nausea/Vomiting Last Admin: 08/10/18 02:02 Dose: 4 mg Oxycodone HCl (Oxycodone Immediate Release Tab) 5 mg PO Q8H PRN PRN Reason: Pain, severe (8-10) Last Admin: 08/13/18 04:51 Dose: 5 mg Pantoprazole Sodium (Protonix Inj) 40 mg IVP DAILY [facility] Last Admin: 08/15/18 09:33 Dose: 40 mg Potassium Chloride (Potassium Chloride Oral Soln) 20 meq PO DAILY [facility] Sodium Chloride ([place] Nasal [place]) 0 ml NS QID [facility] Last Admin: 08/14/18 21:46 Dose: Not Given Tramadol HCl (Ultram) 50 mg PO TID PRN PRN Reason: Pain, moderate (4-7) Tranexamic Acid (Tranexamic Acid) 500 mg IH TIDRESP [facility] Last Admin: 08/15/18 08:22 Dose: 500 mg - Labs Labs: 08/15/18 06:00 08/15/18 06:00 PT 23.1 SECONDS (9.4-12.5) H 08/14/18 17:00 INR 2.08 08/14/18 17:00 APTT 30.6 Seconds (26.9-38.3) 08/13/18 17:10 - Constitutional Appears: Chronically Ill - Eye Exam Eye Exam: Normal appearance - ENT Exam ENT Exam: Mucous Membranes Moist - Respiratory Exam Respiratory Exam: Decreased Breath Sounds - Cardiovascular Exam Cardiovascular Exam: Tachycardia, +S1, +S2 - GI/Abdominal Exam GI & Abdominal Exam: Soft, Hypoactive Bowel Sounds - Extremities Exam Extremities Exam: Normal Capillary Refill - Skin Skin Exam: Dry, Pallor Additional comments: anasarca Assessment and Plan - Assessment and Plan (Free Text) Assessment: 53 year old female with history of MDS, lung cancer, breast cancer, COPD, and endocarditis who is admitted with fever, LUE DVT,hypotension, pancytopenia, respiratory failure,alveolar hemorrhage. Patient's daughter Kee and patient's sisters at bedside. Kee is aware of patients diagnosis and prognosis. She understands that her mother's prognosis is very poor. Lengthy conversation regarding goals of care ensued. Option for comfort care offered. Daughter not willing to withdraw care or terminally extubate at this time. However, she understands the ramifications of CPR and has asked that her mother be made DNR. Family in agreement with DNR. Psychosocial support provided. Time sent with family in goals of care and advance care planning, 35 minutes Plan: Goals of care; DNR Hypotension: Levophed LUE DVT: Continue Lovenox Thompson colitis: C diff /thompson cultures/stool studies negative. Continue Doxycy greer,Zosyn, Vancomycin. Respiratory failure/COPD: Intubated, monitor ABG's, continue duonebs,brovana, xoponex. Pancytopneia:s/p FFP, PRBC's monitor CBC.
--- NOTE | 2018-08-15 13:07 | PN ---
DATE: 08/15/2018 PULMONARY PROGRESS NOTE REFERRING PHYSICIAN: August Lara MD SUBJECTIVE: The patient is seen lying in bed, remains intubated and sedated. Still on norepinephrine, propofol, fentanyl. No hemoptysis, hematemesis, hematuria and diarrhea reported. Family is at bedside. OBJECTIVE: VITAL SIGNS: Blood pressure 101/46, pulse 107, temperature 99.9 and oxygen saturation 99%. HEENT: ET tube and NG tube present. Moist mucous membranes. RESPIRATORY: Few rhonchi bilaterally. CARDIOVASCULAR: S1 and S2, tachycardiac. ABDOMEN: Soft. No distention. EXTREMITIES: Bilateral pedal edema. Left upper extremity edema. NEUROLOGIC: Intubated and sedated. MEDICATIONS: Reviewed. DuoNeb 3 mL inhalation every 4 hours p.r.n., Norvasc is on hold, atenolol 50 mg daily, Pulmicort 0.5 mg inhalation twice a day, Klonopin is on hold, Benadryl 25 mg IV push every 8 hours p.r.n., doxycycline 100 mg every 12 hours, ergocalciferol 50,000 units weekly, fentanyl 1000 mcg in 100 mL at 7.5 mL per hour, Motrin 400 mg every 6 hours p.r.n. on hold, Atrovent 0.5 mg inhalation three times a day, Xopenex 0.63 mg inhalation three times a day, magnesium oxide 400 mg twice a day, metoprolol tartrate 5 mg every 6 hours p.r.n., Bactroban topically twice a day, Vitamin B complex one tab daily, norepinephrine 4 mg and 250 mL and 15 mL per hour, Zofran 4 mg IV push every 6 hours p.r.n., oxycodone 5 mg every 8 hours p.r.n., Protonix 40 mg IV push daily, Zosyn 3.375 g, 100 mL at 25 mL per hour, potassium chloride 20 mEq and sodium chloride 1000 10 mL at 100 mL per hour, propofol 1000 mg in 100 mL per hour, sodium chloride nasal spray 4 times a day, Ultram 50 mg three times a day p.r.n., tranexamic 500 mg inhalation three times a day and vancomycin 1 g twice a day. LABORATORY DATA: Reviewed. WBC 4.2, RBC 3.33, hemoglobin 9.6, hematocrit 28.7, and platelets 38. PT 23.1 and INR 2.08. Blood gas at 05:43 a.m. this morning PCO2 57, PO2 48, HCO3 19.4, ABG pH 7.14, and FiO2 60. Blood gas is at 10:20 today PCO2 53, PO2 55, HCO3 20.2, ABG pH 7.19 and FiO2 80. Sodium 149, potassium 3.9, chloride 117, carbon dioxide 22, anion gap 13, BUN 28, creatinine 1, GFR greater than 60, random glucose 115, calcium 8.3, phosphorus 6.5, magnesium 2.0, total bilirubin 5.5, AST 22, ALT 21, alkaline phosphatase 82. C-reactive protein 434. Total protein 6.3, albumin 2.4, globulin 3.9 and albumin-globulin ration 0.6. Fluid from peritoneal ascites shows fluid RBC 40,000, fluid total cell count 100, fluid mononuclear cell 73.3 and fluid polymorphonuclear cell 26.7. Complement C3 88 and complement C4 22.6. Sputum culture preliminary shows no growth. Chest x-ray shows endotracheal tube terminates in the emily. Nasogastric tube terminates in the gastroesophageal junction. No significant interval change in extensive confluent airspace disease in both lungs superimposed on the background of interstitial, pulmonary fibrosis with relative sparing of the right upper lobe. Large round lucencies overlying the right lower lobe could represent pneumatoceles. IMPRESSION AND PLAN: Myelodysplasia, history of lung cancer requiring lobectomy in the past, thrombocytopenia, sickle cell disease, anemia, chronic lung disease, left upper extremity deep venous thrombosis, alveolar hemorrhage and pneumonia possibly aspiration pneumonia. FiO2 was increased during visit on ventilator to 100 maintained on PEEP 5, tidal volume 300. We will order repeat ABG's in 2 hours. Continue broad-spectrum antibiotics. Monitor platelets. No anticoagulation at this time, understanding the risk versus benefits of anticoagulation in this patient. The patient has poor prognosis. The patient made DO NOT RESUSCITATE by family today. Continue inhaled bronchodilators and gastric prophylaxis. Sequential compression devices to bilateral lower extremities for deep venous thrombosis. Followup ABG's and chest x-ray, CBC and CMP in the morning as well. Case discussed in depth with family. All questions were answered. The patient continues on propofol, fentanyl, and norepinephrine. Critical care time spent more than 35 minutes. This patient was seen and examined with Dr. Maurer. Discussed assessment and plan as described above. This patient was seen and examined with Henry Marquez, nurse practitioner. Discussed assessment and plan as described above. Thank you for this consult. We will follow with you. Henry Marquez APN Solange Maurer MD JONAH
[2018-08-15] MEDS ORDERED: Potassium Chloride 20 MEQ in Sodium Chloride 0.45% 1,000 ML IV SCH ×2 (14:26→14:33)
--- NOTE | 2018-08-15 14:44 | CP.PCM.PN ---
<Scar Bermeo - Last Filed: 08/15/18 14:41> Subjective - Date & Time of Evaluation Date of Evaluation: 08/15/18 Time of Evaluation: 09:50 - Subjective Subjective: Scar Bermeo D.O. PGY-3, Internal Medicine Resident, Infectious Disease Progress Note 53-year-old female with a past medical history of myelodysplastic syndrome status post chemotherapy, lung cancer status post lobectomy, right breast mastec leonard, chronic obstructive pulmonary disease, and endocarditis who presented for platelet transfusion yesterday at the infusion clinic and was found to be febrile with a fever of 101.2. Infectious disease consultation was requested for his fever. Patient was seen and examined at bedside. Continues to be sedated and intubated. Has been made DNR by family. Objective - Vital Signs/Intake and Output Vital Signs (last 24 hours): Temp Pulse Resp BP Pulse Ox 99.9 F H 107 H 24 101/46 L 99 08/15/18 11:14 08/15/18 11:14 08/13/18 14:00 08/15/18 11:15 08/15/18 11:14 Intake and Output: 08/15/18 08/15/18 06:59 18:59 Intake Total 250 100 Balance 250 100 - Medications Medications: Current Medications Albuterol/Ipratropium (Duoneb 3 Mg/0.5 Mg (3 Ml) Ud) 3 ml IH [id number] PRN PRN Reason: Shortness of Breath Last Admin: 08/12/18 03:00 Dose: 3 ml Amlodipine Besylate (Norvasc) 10 mg PO DAILY [facility] Last Admin: 08/13/18 10:00 Dose: Not Given Atenolol (Tenormin) 50 mg PO DAILY [facility] Last Admin: 08/15/18 09:34 Dose: 50 mg Budesonide (Pulmicort Respules) 0.5 mg IH BIDRESP [facility] Last Admin: 08/15/18 07:27 Dose: 0.5 mg Clonazepam (Klonopin) 0.5 mg PO BID [facility]; Protocol Last Admin: 08/13/18 12:42 Dose: Not Given Diphenhydramine HCl (Benadryl) 25 mg IVP Q8H PRN PRN Reason: Allergy symptoms Ergocalciferol (Drisdol 50,000 Intl Units Cap) 1 cap PO SUN [facility] Last Admin: 08/12/18 09:24 Dose: 1 cap Fentanyl Citrate (Fentanyl Citrate/Sodium Chloride 1 Mg/100 Ml) 1,000 mcg in 100 mls @ 7.5 mls/hr IV .[id number] PRN; Protocol PRN Reason: TITRATE PER MD ORDER Last Admin: 08/15/18 04:01 Dose: 75 mcg/hr, 7.5 mls/hr Propofol (Diprivan) 1,000 mg in 100 mls @ 1.591 mls/hr IV .Q24H PRN; Protocol PRN Reason: TITRATE PER MD ORDER Last Admin: 08/15/18 06:46 Dose: 50 mcg/kg/min, 15.908 mls/hr Doxycycline Hyclate 100 mg/ (Sodium Chloride) 100 mls @ 100 mls/hr IVPB Q12 [facility]; Protocol Stop: 08/20/18 13:31 Last Admin: 08/15/18 09:29 Dose: 100 mls/hr Piperacillin Sod/Tazobactam Sod (Zosyn 3.375 In Ns 100ml) 100 mls @ 25 mls/hr IVPB Q8 [facility]; Protocol Stop: 08/20/18 14:01 Last Admin: 08/15/18 05:14 Dose: 25 mls/hr Vancomycin HCl (Vancomycin 1gm) 1 gm in 250 mls @ 167 mls/hr IVPB 0330,1530 [facility]; Protocol Last Admin: 08/15/18 02:36 Dose: 167 mls/hr NOREPINEPHRINE BIT/0.9 % NACL (Levophed 4 Mg/ 250 Ml Ns Premixed) 4 mg in 250 mls @ 15 mls/hr IV .[id number] PRN; Protocol PRN Reason: TITRATE PER MD ORDER Last Admin: 08/15/18 08:41 Dose: 7 mcg/min, 26.25 mls/hr Potassium Chloride 20 meq/ (Sodium Chloride) 1,010 mls @ 100 mls/hr IV .Q10H6M [facility] Ibuprofen (Motrin Tab) 400 mg PO Q6H PRN PRN Reason: Fever >100.4 F Ipratropium Carson (Atrovent) 0.5 mg IH TIDRESP [facility] Last Admin: 08/15/18 13:43 Dose: 0.5 mg Levalbuterol HCl (Xopenex) 0.63 mg IH TIDRESP [facility] Last Admin: 08/15/18 13:43 Dose: 0.63 mg Loratadine (Claritin) 10 mg PO DAILY [facility] Last Admin: 08/13/18 10:00 Dose: Not Given Losartan Potassium (Cozaar) 50 mg PO QPM [facility] Last Admin: 08/13/18 18:14 Dose: Not Given Magnesium Oxide (Mag-Ox) 400 mg PO BID [facility] Last Admin: 08/15/18 09:34 Dose: 400 mg Metoprolol Tartrate (Lopressor) 5 mg IVP Q6H PRN PRN Reason: HR above 130's Last Admin: 08/14/18 20:38 Dose: 5 mg Mupirocin (Bactroban Ointment) 1 gm TOP BID [facility] Last Admin: 08/15/18 09:35 Dose: 2 unit Nicotine (Nicoderm Cq) 1 patch TD DAILY [facility] Last Admin: 08/12/18 09:26 Dose: Not Given Non-Formulary Medication (Vitamin B Complex [Super B-50 Complex]) 1 cap PO DAILY [facility] Last Admin: 08/15/18 09:36 Dose: Not Given Ondansetron HCl (Zofran Inj) 4 mg IVP Q6H PRN PRN Reason: Nausea/Vomiting Last Admin: 08/10/18 02:02 Dose: 4 mg Pantoprazole Sodium (Protonix Inj) 40 mg IVP DAILY [facility] Last Admin: 08/15/18 09:33 Dose: 40 mg Potassium Chloride (Potassium Chloride Oral Soln) 20 meq PO DAILY [facility] Sodium Chloride (Nowthen Nasal Holley) 0 ml NS QID [facility] Last Admin: 08/14/18 21:46 Dose: Not Given Tramadol HCl (Ultram) 50 mg PO TID PRN PRN Reason: Pain, moderate (4-7) Tranexamic Acid (Tranexamic Acid) 500 mg IH TIDRESP [facility] Last Admin: 08/15/18 13:43 Dose: 500 mg - Labs Labs: 08/15/18 06:00 08/15/18 06:00 PT 23.1 SECONDS (9.4-12.5) H 08/14/18 17:00 INR 2.08 08/14/18 17:00 APTT 30.6 Seconds (26.9-38.3) 08/13/18 17:10 - Constitutional Appears: Chronically Ill, intubated - Head Exam Head Exam: ATRAUMATIC, NC - Eye Exam Eye Exam: EOMI, PERRL. absent: Scleral icterus - ENT Exam ENT Exam: Mucous Membranes Moist - Neck Exam Neck exam: Positive for: Normal Inspection. Negative for: Lymphadenopathy - Respiratory Exam Respiratory Exam: coarse breath sounds BL - Cardiovascular Exam Cardiovascular Exam: tachycardic, +S1, +S2. absent: Gallop, Rubs - GI/Abdominal Exam GI & Abdominal Exam: mildly tender throughout, soft - Extremities Exam Extremities exam: Negative for: calf tenderness, pedal edema - Neurological Exam Neurological exam: sedated - Skin Skin Exam: Dry, Warm Assessment and Plan - Assessment and Plan (Free Text) Assessment: 53-year-old female with a past medical history of myelodysplastic syndrome status post chemotherapy, lung cancer status post lobectomy, right breast mastectomy, chronic obstructive pulmonary disease, and endocarditis who presented for platelet transfusion yesterday at the infusion clinic and was found to be febrile with a fever of 101.2. Infectious disease consultation was requested for his fever. Plan: New sepsis likely 2/2 HCAP Sepsis likely 2/2 pancolitis LUE DVT 2/2 PICC line Immunocompromise state High-grade myelodysplastic syndrome with thrombocytopenia Lung cancer status post lobectomy Continues to be very critically ill, on pressors Family has made DNR We will continue broad coverage with doxy/zosyn/vanco day 3 Procal continues to be elevated Palliative care following, note reviewed and appreciated Discussed with Hem/Onc team Prognosis very guarded We will follow with you Patient was seen and examined and case to be discussed with attending physician Thank you for the pleasure participating in the care of this interesting patient <Terrance Juan - Last Filed: 08/15/18 17:25> Objective - Vital Signs/Intake and Output Vital Signs (last 24 hours): Temp Pulse Resp BP Pulse Ox 100.0 F H 95 H 24 100/49 L 99 08/15/18 16:15 08/15/18 16:59 08/13/18 14:00 08/15/18 17:00 08/15/18 16:59 Intake and Output: 08/15/18 08/15/18 06:59 18:59 Intake Total 250 550 Balance 250 550 - Medications Medications: Current Medications Albuterol/Ipratropium (Duoneb 3 Mg/0.5 Mg (3 Ml) Ud) 3 ml IH [id number] PRN PRN Reason: Shortness of Breath Last Admin: 08/12/18 03:00 Dose: 3 ml Amlodipine Besylate (Norvasc) 10 mg PO DAILY [facility] Last Admin: 08/13/18 10:00 Dose: Not Given Atenolol (Tenormin) 50 mg PO DAILY [facility] Last Admin: 08/15/18 09:34 Dose: 50 mg Budesonide (Pulmicort Respules) 0.5 mg IH BIDRESP [facility] Last Admin: 08/15/18 07:27 Dose: 0.5 mg Clonazepam (Klonopin) 0.5 mg PO BID [facility]; Protocol Last Admin: 08/13/18 12:42 Dose: Not Given Diphenhydramine HCl (Benadryl) 25 mg IVP Q8H PRN PRN Reason: Allergy symptoms Ergocalciferol (Drisdol 50,000 Intl Units Cap) 1 cap PO SUN [facility] Last Admin: 08/12/18 09:24 Dose: 1 cap Fentanyl Citrate (Fentanyl Citrate/Sodium Chloride 1 Mg/100 Ml) 1,000 mcg in 100 mls @ 7.5 mls/hr IV .[id number] PRN; Protocol PRN Reason: TITRATE PER MD ORDER Last Admin: 08/15/18 16:20 Dose: 75 mcg/hr, 7.5 mls/hr Propofol (Diprivan) 1,000 mg in 100 mls @ 1.591 mls/hr IV .Q24H PRN; Protocol PRN Reason: TITRATE PER MD ORDER Last Admin: 08/15/18 15:53 Dose: 50 mcg/kg/min, 15.908 mls/hr Doxycycline Hyclate 100 mg/ (Sodium Chloride) 100 mls @ 100 mls/hr IVPB Q12 [facility]; Protocol Stop: 08/20/18 13:31 Last Admin: 08/15/18 09:29 Dose: 100 mls/hr Piperacillin Sod/Tazobactam Sod (Zosyn 3.375 In Ns 100ml) 100 mls @ 25 mls/hr IVPB Q8 [facility]; Protocol Stop: 08/20/18 14:01 Last Admin: 08/15/18 15:33 Dose: 25 mls/hr Vancomycin HCl (Vancomycin 1gm) 1 gm in 250 mls @ 167 mls/hr IVPB 0330,1530 [facility]; Protocol Last Admin: 08/15/18 15:32 Dose: 167 mls/hr NOREPINEPHRINE BIT/0.9 % NACL (Levophed 4 Mg/ 250 Ml Ns Premixed) 4 mg in 250 mls @ 15 mls/hr IV .[id number] PRN; Protocol PRN Reason: TITRATE PER MD ORDER Last Admin: 08/15/18 16:20 Dose: 7 mcg/min, 26.25 mls/hr Potassium Chloride 20 meq/ (Sodium Chloride) 1,010 mls @ 100 mls/hr IV .Q10H6M [facility] Last Admin: 08/15/18 15:29 Dose: 100 mls/hr Ibuprofen (Motrin Tab) 400 mg PO Q6H PRN PRN Reason: Fever >100.4 F Ipratropium [place] (Atrovent) 0.5 mg IH TIDRESP [facility] Last Admin: 08/15/18 13:43 Dose: 0.5 mg Levalbuterol HCl (Xopenex) 0.63 mg IH TIDRESP [facility] Last Admin: 08/15/18 13:43 Dose: 0.63 mg Loratadine (Claritin) 10 mg PO DAILY [facility] Last Admin: 08/13/18 10:00 Dose: Not Given Losartan Potassium (Cozaar) 50 mg PO QPM [facility] Last Admin: 08/13/18 18:14 Dose: Not Given Magnesium Oxide (Mag-Ox) 400 mg PO BID [facility] Last Admin: 08/15/18 17:11 Dose: 400 mg Metoprolol Tartrate (Lopressor) 5 mg IVP Q6H PRN PRN Reason: HR above 130's Last Admin: 08/14/18 20:38 Dose: 5 mg Mupirocin (Bactroban Ointment) 1 gm TOP BID [facility] Last Admin: 08/15/18 17:11 Dose: 2 unit Nicotine (Nicoderm Cq) 1 patch TD DAILY [facility] Last Admin: 08/12/18 09:26 Dose: Not Given Non-Formulary Medication (Vitamin B Complex [Super B-50 Complex]) 1 cap PO DAILY [facility] Last Admin: 08/15/18 09:36 Dose: Not Given Ondansetron HCl (Zofran Inj) 4 mg IVP Q6H PRN PRN Reason: Nausea/Vomiting Last Admin: 08/10/18 02:02 Dose: 4 mg Pantoprazole Sodium (Protonix Inj) 40 mg IVP DAILY [facility] Last Admin: 08/15/18 09:33 Dose: 40 mg Potassium Chloride (Potassium Chloride Oral Soln) 20 meq PO DAILY [facility] Last Admin: 08/15/18 15:30 Dose: Not Given Sodium Chloride (Nowthen Nasal [place]) 0 ml NS QID [facility] Last Admin: 08/15/18 17:11 Dose: Not Given Tramadol HCl (Ultram) 50 mg PO TID PRN PRN Reason: Pain, moderate (4-7) Tranexamic Acid (Tranexamic Acid) 500 mg IH TIDRESP [facility] Last Admin: 08/15/18 13:43 Dose: 500 mg - Labs Labs: 08/15/18 06:00 08/15/18 06:00 PT 23.1 SECONDS (9.4-12.5) H 08/14/18 17:00 INR 2.08 08/14/18 17:00 APTT 30.6 Seconds (26.9-38.3) 08/13/18 17:10 Attending/Attestation - Attestation I have personally seen and examined this patient.: Yes I have fully participated in the care of the patient.: Yes I have reviewed all pertinent clinical information, including history, physical exam and plan: Yes
[2018-08-15 15:07] LABS: ARTERIAL BLOOD GAS HCO3 18.9 mmol/L (21-28); ARTERIAL BLOOD GAS HEMOGLOBIN 8.8 g/dL (11.7-17.4); ARTERIAL BLOOD GAS O2 CONTENT 11.8 ML/dl (15-23); ARTERIAL BLOOD GAS O2 SAT 98.1 % (95-98); ARTERIAL BLOOD GAS PCO2 44 mm/Hg (35-45); ARTERIAL BLOOD GAS PH 7.24 (7.35-7.45); ARTERIAL BLOOD GAS TCO2 20.3 mmol.L (22-28)
--- NOTE | 2018-08-15 16:54 | PN ---
DATE: 08/15/2018 SUBJECTIVE: The patient is seen in the ICU. She is lying in bed. She is on mechanical ventilation. She is minimally responsive, sedated. PHYSICAL EXAMINATION GENERAL: Middle-aged lady lying in bed in the ICU. VITAL SIGNS: Blood pressure 101/46, heart rate 107, respiratory rate 24-30, temperature 99.9. T-max is 99.9. HEENT: Normocephalic, atraumatic, positive pallor. NECK: Supple, no JVD. LUNGS: Bilateral equal air entry, bilateral rhonchi, no rales appreciated anteriorly. CARDIAC: S1 and S2, regular rate rhythm, positive murmur, no rub. ABDOMEN: Soft, nondistended, nontender, bowel sounds present. EXTREMITIES: 1+ pitting edema of the lower extremities. INTAKE AND OUTPUT: 1940/500. LABORATORY DATA: WBC 4.2, hemoglobin 9.6, hematocrit 28.7, platelets 38. Manual count 42. Sodium 149, potassium 3.9, chloride 117, CO2 of 22, BUN 28, creatinine 1.0, glucose 115, calcium 8.3, phosphorus 6.5, magnesium 2.0, total bili 5.5, albumin 2.4, globulin 3.9. C-reactive protein 434. Peritoneal fluid; RBC count 40,000, WBCs 40, fluid cloudy, compliments normal. HIV nonreactive. Stool culture, no growth. Blood culture, no growth. C. diff negative. Chest x-ray: Extensive confluent airspace disease in both lungs on a background of interstitial pulmonary fibrosis. Peripheral smear: Leukopenia with relative increase in monocytes, normocytic-normochromic anemia with mild anisopoikilocytosis. No evidence of hemolysis. CURRENT MEDICATIONS: Atrovent, Benadryl, Claritin 10 mg daily, losartan 50, Diprivan, doxycycline 100 mg every 12 hours, DuoNeb, fentanyl 75 mcg per hour, Klonopin, Levophed 7 mcg per minute, Lopressor, Mag oxide 400 b.i.d., Motrin, amlodipine 10 on hold, normal saline with 20 mEq of KCl at 100, Protonix 40 IV daily, atenolol 50 daily, vancomycin 1 g b.i.d., Xopenex, Zofran, Zosyn 3.375 every 8 hours, IVIG given yesterday, Solu-Medrol 250 mg IV every 8 hours, total of 3 doses given. ASSESSMENT 1. Severe hypokalemia, now much improved. 2. Resolved hypomagnesemia. 3. Acute respiratory failure. 4. History of breast cancer, history of lumpectomy. 5. History of lung cancer, history of lobectomy. 6. 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 7. History of hypertension. 8. Pulmonary hemorrhage/pneumonia/respiratory failure. 9. History of deep vein thrombosis. 10. Chronic lower extremity edema. 11. Hypernatremia. 12. Hyperphosphatemia. 13. Severe hypoalbuminemia. PLAN 1. Change IV fluids to half-normal saline with 20 mEq of KCl at 100 mL per hour. 2. Continue broad-spectrum antibiotics as per ID recommendations DNR noted. 3. Continue ventilatory support. 4. Avoid nephrotoxins. 5. Monitor urine output closely. 6. Monitor daily electrolytes. 7. Overall prognosis is grim. Case discussed with ICU nursing staff, case discussed with family member at bedside. More than 35 minutes were spent in the care of this critically ill patient. Tri Orellana MD
--- NOTE | 2018-08-15 19:47 | PN ---
DATE: 08/14/2018 SUBJECTIVE: The patient remains critically sick in ICU, intubated with multiple IVs and does not seem to be in distress. She is on IV norepinephrine, IV fentanyl, and IV Diprivan. The patient is also on multiple antibiotics. PHYSICAL EXAMINATION: GENERAL: The patient is intubated. VITAL SIGNS: Temperature is 100.2, heart rate 135, blood pressure 122/48. Respirations, she is on a ventilator, saturating low 60% and final CO2 is 46. LABORATORY DATA: White count 4.5, hemoglobin 8.4, hematocrit 25.1, and platelets 12,000. Chemistry; sodium 146, potassium 3.3, chloride 116, bicarb 19, BUN 24, creatinine 0.9, and blood sugar 82. Her C-reactive protein is 434. IMPRESSION AND PLAN: 1. Respiratory failure secondary to multifactorial, aspiration pneumonia, hemoptysis; also rule out fungal or viral infection, culture is pending; underlying emphysema revealed with large bullae. Continue ventilation support for now. 2. Acute myeloid leukemia with severe myelodysplasia with severe thrombocytopenia. Continue platelet support by Oncology. Discussed with Dr. Lopez and family the report. The patient has poor prognosis. She has severe thrombocytopenia with severe respiratory compromise. We will continue ventilation support. Continue IV antibiotic as per Infectious Disease hospice care consultant and pulmonary consult, Dr. Maurer. Currently she is on doxycycline. She is on Zosyn and we will follow up on that and vancomycin. Continue current therapy. 3. The patient does have hypertension, seems stable now. We will hold off on blood pressure medication because of underlying sepsis and aspiration pneumonia. We will follow up clinically. We will talk with the family about the current status. Continue current support. August Lara MD
--- NOTE | 2018-08-15 22:13 | PN ---
DATE: 08/15/2018 LOCATION: The patient in ICU 128, bed 1. REASON FOR CONSULTATION: Respiratory failure, sinus tachycardia, sepsis, pneumonia, leukemia, history of lung cancer, history of breast cancer, history of lumpectomy in 2003, post lobectomy for lung cancer, post chemotherapy, leukemia, LV ejection fraction 45% to 50%, and elevated troponin. SUBJECTIVE: The patient continue to be on the respirator due to respiratory distress. PHYSICAL EXAMINATION: VITAL SIGNS: Blood pressure 100/49; respirations as mentioned, the patient on respirator; pulse is 95; and temperature is 100.4. HEENT: Head is normocephalic. Eyes; pupils normal. Conjunctivae slightly pale. NECK: JVP low. Carotid equal. THORAX: AP diameter normal. LUNGS: Few basilar rales on the bases. CARDIOVASCULAR: S1 and S2. ABDOMEN: Soft and no tenderness. Bowel sounds normal. EXTREMITIES: No clubbing. No cyanosis. LABORATORY DATA: WBC 4.2, hemoglobin 9.6, hematocrit 28.7, and platelet 38. Sodium 149, potassium 3.9, BUN 28, creatinine 1, glucose 115, calcium 8.3, phosphorus 6.5, total protein 6.3, and albumin 2.4. Chest x-ray showed extensive confluent airspace disease in both lungs, superimposed on background of interstitial pulmonary fibrosis with relative sparing of the right upper lobe. Large round lucency overlying the right lower lobe could represent pneumatoceles. DIAGNOSES: Respiratory failure, sepsis and sinus tachycardia reflecting an underlying condition of sepsis, anemia, bilateral pneumonia, leukemia, hypokalemia, which has been corrected, hypernatremia, history of lung cancer, status post chemotherapy, history of breast cancers, status post lumpectomy, severe thrombocytopenia, and slightly elevated troponin probably related to sepsis. PLAN: The patient is not in a shape to do any invasive intervention from cardiac point of view. The patient continuing antibiotic. The patient on vancomycin 1 g IV piggyback b.i.d. The patient also on piperacillin and tazobactam 100 mL IV every 8 hours, atenolol 50 daily for tachycardia, potassium 20 mEq daily, and amlodipine 10 daily. The patient started on norepinephrine drip 4 mg in 250 mL IV 4 mcg per minute, amlodipine 10 daily, doxycycline 100 mg IV every 12 hours, and Lopressor p.r.n. 5 mg IV for tachycardia. We will continue present therapy. We will follow. Solange Escobar MD
--- NOTE | 2018-08-16 01:02 | PN ---
DATE: 08/15/2018 LOCATION: The patient in ICU. SUBJECTIVE: She seems comfortable, sedated, fentanyl and propofol drip. She is not in pain, she is comfortable breathing, though she required 100% oxygen sat. The patient otherwise comfortably. PHYSICAL EXAMINATION: VITAL SIGNS: Temperature is 100.4, heart rate 97, blood pressure 92/38, respirations 18, and saturation on 100%. HEAD AND NECK: Normal. No JVD. CHEST: Diminished breath sounds. CARDIAC: First sound and second sound normal. ABDOMEN: Soft and nontender. EXTREMITIES: No edema. NEUROLOGIC: Sedated, not responding. LABORATORY DATA: Study shows reticulocyte count 0.10 which is very low. White count 4.2, hemoglobin 9.6, hematocrit 28.7, and platelets 42,000. Chemistry; sodium 149, potassium 3.9, chloride 117, bicarb 22, BUN 28, creatinine 1, blood sugar 115, calcium 8.3, phosphorous 6.5, magnesium 2, and total bilirubin 5.5. Liver function test is normal. Her C-reactive protein is 434. IMPRESSION AND PLAN: 1. Sepsis, at this time probable pulmonary source, pneumonia on x-ray, continue IV antibiotics, she is on vancomycin and doxycycline. We will continue current therapy. Continue ventilation support. 2. Respiratory failure, multifactorial pneumonia, chronic obstructive pulmonary disease, emphysema, sepsis, generalized weakness, continue ventilation support to 100%. The patient from now on is going to be do not resuscitate, continue supportive care for now. 3. The patient has severe thrombocytopenia, acute myeloid leukemia, bone marrow failure, continue supportive care. The patient seems comfortable. 4. Hypertension. The patient currently on norepinephrine drip at 4 mcg per minute. 5. Continue current therapy, but poor prognosis. The patient currently on Zosyn, IV antibiotics, vancomycin, doxycycline, she is on nebulizers, Xopenex, she is on fentanyl, Diprivan, Lopressor for heart rate control. She is on Diprivan and she is also on inhaled bronchodilators. Continuing supportive care. Continue current treatment. August Lara MD
[2018-08-16 05:47] LABS: ARTERIAL BLOOD GAS HCO3 20.7 mmol/L (21-28); ARTERIAL BLOOD GAS HEMOGLOBIN 9.4 g/dL (11.7-17.4); ARTERIAL BLOOD GAS O2 CAPACITY 12.8 mL/dl (16-24); ARTERIAL BLOOD GAS O2 CONTENT 12.7 ML/dl (15-23); ARTERIAL BLOOD GAS O2 SAT 98.9 % (95-98); ARTERIAL BLOOD GAS PCO2 58 mm/Hg (35-45); ARTERIAL BLOOD GAS PH 7.16 (7.35-7.45); ARTERIAL BLOOD GAS TCO2 22.5 mmol.L (22-28)
[2018-08-16] MEDS: Piperacillin/Tazobact 3.375 gm 100 ML IVPB SCH ×3 (06:01→21:28)
[2018-08-16] MEDS: Vancomycin 1gm in NS 250ml 1 GM/250 ML BAG IVPB SCH (06:01)
[2018-08-16] MEDS: NOREPINEPHRINE BIT/0.9 % NACL 4 MG/250 ML BAG IV PRN (06:02)
[2018-08-16] MEDS: Propofol 10 mg/ml 1,000 MG/100 ML VIAL IV PRN ×2 (06:03→21:26)
[2018-08-16] MEDS: Fentanyl 1000mcg/100ml NS 1,000 MCG/100 ML BAG IV PRN ×2 (06:05→21:27)
--- NOTE | 2018-08-16 06:47 | CP.CCUPN ---
<Rolando Tran - Last Filed: 08/16/18 11:34> CCU Subjective - Physician Review Events Since Last Encounter (Free Text): 08/16/18 06:44 received platelets, temp elevated, received Tylenol, tolerating feeds Subjective (Free Text): 08/14/18 09:06 Pt seen and examined this morning in the ICU, pt intubated and sedated, NAD 08/15/18 07:14 Pt seen and examined, intubated, sedated, on pressers, unable to communicated during exam 08/16/18 06:47 Pt seen and examined, intubated, sedated, on levophed CCU Objective - Vital Signs / Intake & Output Intake and Output (Last 8hrs): Intake & Output 08/15/18 08/15/18 08/16/18 14:59 22:59 06:59 Intake Total 200 2410 450 Output Total 500 Balance 200 1910 450 Intake: IV 200 2050 450 Right Femoral 1600 Tube Feeding 360 Output: Urine 500 2-way Urethral 500 Other: # Bowel Movements 0 - Physical Exam Head: Positive for: Atraumatic, Normocephalic Pupils: Positive for: PERRL Extroacular Muscles: Positive for: EOMI Conjunctiva: Positive for: Normal Mouth: Positive for: Dry Neck: Positive for: Normal Range of Motion Respiratory/Chest: Positive for: Clear to Auscultation, Good Air Exchange, Other (intubated ). Negative for: Respiratory Distress, Accessory Muscle Use Cardiovascular: Positive for: Normal S1, S2, Tachycardic. Negative for: Murmurs Abdomen: Negative for: Peritoneal Signs Back: Positive for: Normal Inspection Upper Extremity: Positive for: Normal Inspection. Negative for: Cyanosis, Edema Lower Extremity: Positive for: Normal Inspection, Edema Neurological: Positive for: CN II-XII Intact, Speech Normal Skin: Positive for: Warm, Dry, Normal Color. Negative for: Rashes Psychiatric: Positive for: Other (sedated) - Medications Active Medications: Active Medications Generic Name Dose Route Start Last Admin Trade Name Freq PRN Reason Stop Dose Admin Albuterol/Ipratropium 3 ml 08/08/18 14:07 08/12/18 03:00 Duoneb 3 Mg/0.5 Mg (3 Ml) Ud IH 3 ml [id number] PRN Administration Shortness of Breath Amlodipine Besylate 10 mg 08/08/18 10:00 08/13/18 10:00 Norvasc PO Not Given DAILY KAYLEIGH Atenolol 50 mg 08/13/18 10:00 08/15/18 09:34 Tenormin PO 50 mg DAILY KAYLEIGH Administration Budesonide 0.5 mg 08/07/18 20:00 08/15/18 19:28 Pulmicort Respules IH 0.5 mg BIDRESP KAYLEIGH Administration Clonazepam 0.5 mg 08/07/18 18:00 08/13/18 12:42 Klonopin PO Not Given BID KAYLEIGH Protocol Diphenhydramine HCl 25 mg 08/12/18 13:50 Benadryl IVP Q8H PRN Allergy symptoms Ergocalciferol 1 cap 08/12/18 10:00 08/12/18 09:24 Drisdol 50,000 Intl Units Cap PO 1 cap SUN KAYLEIGH Administration Fentanyl Citrate 1,000 mcg in 100 mls @ 7.5 mls/hr 08/13/18 11:35 08/16/18 06:05 Fentanyl Citrate/Sodium Chloride 1 Mg/100 Ml IV 75 mcg/hr .[id number] PRN 7.5 mls/hr TITRATE PER MD ORDER Administration Protocol 75 MCG/HR Propofol 1,000 mg in 100 mls @ 1.591 mls/hr 08/13/18 12:48 08/16/18 06:03 Diprivan IV 30 mcg/kg/min .Q24H PRN 9.545 mls/hr TITRATE PER MD ORDER Administration Protocol 5 MCG/KG/MIN Doxycycline Hyclate 100 mg/ 100 mls @ 100 mls/hr 08/13/18 13:30 08/15/18 21:17 Sodium Chloride IVPB 08/20/18 13:31 100 mls/hr Q12 KAYLEIGH Administration Protocol Piperacillin Sod/Tazobactam Sod 100 mls @ 25 mls/hr 08/13/18 14:00 08/16/18 06:01 Zosyn 3.375 In Ns 100ml IVPB 08/20/18 14:01 25 mls/hr Q8 KAYLEIGH Administration Protocol Vancomycin HCl 1 gm in 250 mls @ 167 mls/hr 08/13/18 14:44 08/16/18 06:01 Vancomycin 1gm IVPB 167 mls/hr 0330,1530 KAYLEIGH Administration Protocol NOREPINEPHRINE BIT/0.9 % NACL 4 mg in 250 mls @ 15 mls/hr 08/14/18 11:47 08/16/18 06:02 Levophed 4 Mg/ 250 Ml Ns Premixed IV 7 mcg/min .[id number] PRN 26.25 mls/hr TITRATE PER MD ORDER Administration Protocol 4 MCG/MIN Potassium Chloride 20 meq/ 1,010 mls @ 100 mls/hr 08/15/18 14:33 08/15/18 15:29 Sodium Chloride IV 100 mls/hr .[id number] KAYLEIGH Administration Ibuprofen 400 mg 08/13/18 07:45 Motrin Tab PO Q6H PRN Fever >100.4 F Ipratropium Orick 0.5 mg 08/14/18 14:00 08/15/18 19:27 Atrovent IH 0.5 mg TIDRESP KAYLEIGH Administration Levalbuterol HCl 0.63 mg 08/14/18 14:00 08/15/18 19:29 Xopenex IH 0.63 mg TIDRESP KAYLEIGH Administration Loratadine 10 mg 08/08/18 10:00 08/13/18 10:00 Claritin PO Not Given DAILY KAYLEIGH Losartan Potassium 50 mg 08/07/18 18:00 08/13/18 18:14 Cozaar PO Not Given QPM KAYLEIGH Magnesium Oxide 400 mg 08/07/18 18:00 08/15/18 17:11 Mag-Ox PO 400 mg BID KAYLEIGH Administration Metoprolol Tartrate 5 mg 08/14/18 20:30 08/14/18 20:38 Lopressor IVP 5 mg Q6H PRN Administration HR above 130's Mupirocin 1 gm 08/13/18 20:30 08/15/18 17:11 Bactroban Ointment TOP 2 unit BID KAYLEIGH Administration Nicotine 1 patch 08/07/18 16:45 08/12/18 09:26 Nicoderm Cq TD Not Given DAILY KAYLEIGH Non-Formulary Medication 1 cap 08/08/18 10:00 08/15/18 09:36 Vitamin B Complex [Super B-50 Complex] PO Not Given DAILY KAYLEIGH Ondansetron HCl 4 mg 08/08/18 13:17 08/10/18 02:02 Zofran Inj IVP 4 mg Q6H PRN Administration Nausea/Vomiting Pantoprazole Sodium 40 mg 08/13/18 10:00 08/15/18 09:33 Protonix Inj IVP 40 mg DAILY KAYLEIGH Administration Potassium Chloride 20 meq 08/15/18 10:00 08/15/18 15:30 Potassium Chloride Oral Soln PO Not Given DAILY KAYLEIGH Sodium Chloride 0 ml 08/07/18 18:00 08/15/18 21:20 Malcom Nasal [place] NS Not Given QID KAYLEIGH Tramadol HCl 50 mg 08/11/18 13:22 Ultram PO TID PRN Pain, moderate (4-7) Tranexamic Acid 500 mg 08/13/18 14:00 08/15/18 20:30 Tranexamic Acid IH 500 mg TIDRESP KAYELIGH Administration - Patient Studies Lab Studies: Microbiology Studies 08/11/18 20:45 Blood Culture - Preliminary Blood NO GROWTH AFTER 4 DAYS 08/11/18 20:25 Blood Culture - Preliminary Blood NO GROWTH AFTER 4 DAYS 08/13/18 17:00 Gram Stain - Final Sputum Sputum Culture - Preliminary No growth. 08/13/18 17:00 Fungal Culture - Preliminary Sputum 08/13/18 11:00 Gram Stain - Final Trachasp Sputum Culture - Final NORMAL ORAL SARAH Lab Studies 08/16/18 08/15/18 08/15/18 Range/Units 05:20 15:00 10:20 WBC (4.5-11.0) 10^3/uL RBC (3.5-6.1) 10^6/uL Hgb (12.0-16.0) g/dL Hct (36.0-48.0) % MCV (80.0-105.0) fl MCH (25.0-35.0) pg MCHC (31.0-37.0) g/dl RDW (11.5-14.5) % Plt Count (120.0-450.0) 10^3/uL Manual Plt Count (120-450) K/mm3 MPV (7.0-11.0) fl Neut % (Auto) (50.0-68.0) % Lymph % (Auto) (22.0-35.0) % [place] % (Auto) (1.0-6.0) % Eos % (Auto) (1.5-5.0) % Baso % (Auto) (0.0-3.0) % Lymph # (Auto) (1.2-3.4) [place] # (Auto) (0.1-0.6) Eos # (Auto) (0.0-0.7) Baso # (Auto) (0.0-2.0) K/mm3 Absolute Neuts (auto) (1.4-6.5) Platelet Evaluation (NORMAL) pCO2 58 H 44 53 H (35-45) mm/Hg pO2 85.0 74.0 L 55.0 L (80-100) mm/Hg HCO3 20.7 L 18.9 L 20.2 L (21-28) mmol/L ABG pH 7.16 L* 7.24 L 7.19 L* (7.35-7.45) ABG Total CO2 22.5 20.3 L 21.8 L (22-28) mmol.L ABG O2 Saturation 98.9 H 98.1 H 93.2 L (95-98) % ABG O2 Content 12.7 L 11.8 L 12.4 L (15-23) ML/dl ABG Base Excess -8.0 L -8.0 L -7.9 L (-2.0-3.0) mmol/L ABG Hemoglobin 9.4 L 8.8 L 9.8 L (11.7-17.4) g/dL ABG Carboxyhemoglobin 2.4 H 2.4 H 3.2 H (0.5-1.5) % POC ABG HHb (Measured) 1.1 1.8 6.5 H (0-5) % ABG Methemoglobin 1.2 1.1 0.9 (0.0-3.0) % ABG O2 Capacity 12.8 L 12.0 L 13.3 L (16-24) mL/dl Hgb O2 Saturation 95.3 94.8 L 89.4 L (95.0-98.0) % FiO2 100.0 100.0 80.0 % Crit Value Called To Dr. gerard Botello Crit Value Called By Phil jacques Ab Blood Gas Notified Time 545 1038 Sodium (132-148) mmol/L Potassium (3.6-5.0) mmol/L Chloride (98-107) mmol/L Carbon Dioxide (21-33) mmol/L Anion Gap (10-20) BUN (7-21) mg/dL Creatinine (0.7-1.2) mg/dl Est GFR ( Amer) Est GFR (Non-Af Amer) Random Glucose (70-110) mg/dL Calcium (8.4-10.5) mg/dL Phosphorus (2.5-4.5) mg/dL Magnesium (1.7-2.2) mg/dL Total Bilirubin (0.2-1.3) mg/dL AST (14-36) U/L ALT (7-56) U/L Alkaline Phosphatase (38-126) U/L Total Protein (5.8-8.3) g/dL Albumin (3.0-4.8) g/dL Globulin gm/dL Albumin/Globulin Ratio (1.1-1.8) 08/15/18 08/15/18 Range/Units 06:00 06:00 WBC 4.2 L (4.5-11.0) 10^3/uL RBC 3.33 L (3.5-6.1) 10^6/uL Hgb 9.6 L (12.0-16.0) g/dL Hct 28.7 L (36.0-48.0) % MCV 86.2 (80.0-105.0) fl MCH 28.8 (25.0-35.0) pg MCHC 33.4 (31.0-37.0) g/dl RDW 17.4 H (11.5-14.5) % Plt Count 38 L* (120.0-450.0) 10^3/uL Manual Plt Count 42 L* (120-450) K/mm3 MPV 8.6 (7.0-11.0) fl Neut % (Auto) 31.7 L (50.0-68.0) % Lymph % (Auto) 38.0 H (22.0-35.0) % [place] % (Auto) 28.9 H (1.0-6.0) % Eos % (Auto) 0.0 L (1.5-5.0) % Baso % (Auto) 1.4 (0.0-3.0) % Lymph # (Auto) 1.6 (1.2-3.4) [place] # (Auto) 1.2 H (0.1-0.6) Eos # (Auto) 0.0 (0.0-0.7) Baso # (Auto) 0.06 (0.0-2.0) K/mm3 Absolute Neuts (auto) 1.32 L (1.4-6.5) Platelet Evaluation Low (NORMAL) pCO2 (35-45) mm/Hg pO2 (80-100) mm/Hg HCO3 (21-28) mmol/L ABG pH (7.35-7.45) ABG Total CO2 (22-28) mmol.L ABG O2 Saturation (95-98) % ABG O2 Content (15-23) ML/dl ABG Base Excess (-2.0-3.0) mmol/L ABG Hemoglobin (11.7-17.4) g/dL ABG Carboxyhemoglobin (0.5-1.5) % POC ABG HHb (Measured) (0-5) % ABG Methemoglobin (0.0-3.0) % ABG O2 Capacity (16-24) mL/dl Hgb O2 Saturation (95.0-98.0) % FiO2 % Crit Value Called To Crit Value Called By Blood Gas Notified Time Sodium 149 H (132-148) mmol/L Potassium 3.9 (3.6-5.0) mmol/L Chloride 117 H (98-107) mmol/L Carbon Dioxide 22 (21-33) mmol/L Anion Gap 13 (10-20) BUN 28 H (7-21) mg/dL Creatinine 1.0 (0.7-1.2) mg/dl Est GFR ( Amer) > 60 Est GFR (Non-Af Amer) 58 Random Glucose 115 H (70-110) mg/dL Calcium 8.3 L (8.4-10.5) mg/dL Phosphorus 6.5 H (2.5-4.5) mg/dL Magnesium 2.0 (1.7-2.2) mg/dL Total Bilirubin 5.5 H (0.2-1.3) mg/dL AST 22 (14-36) U/L ALT 21 (7-56) U/L Alkaline Phosphatase 82 (38-126) U/L Total Protein 6.3 (5.8-8.3) g/dL Albumin 2.4 L (3.0-4.8) g/dL Globulin 3.9 gm/dL Albumin/Globulin Ratio 0.6 L (1.1-1.8) Laboratory Results - last 24 hr 08/15/18 08/15/18 08/15/18 06:00 06:00 10:20 WBC 4.2 L RBC 3.33 L Hgb 9.6 L Hct 28.7 L MCV 86.2 MCH 28.8 MCHC 33.4 RDW 17.4 H Plt Count 38 L* Manual Plt Count 42 L* MPV 8.6 Neut % (Auto) 31.7 L Lymph % (Auto) 38.0 H [place] % (Auto) 28.9 H Eos % (Auto) 0.0 L Baso % (Auto) 1.4 Lymph # (Auto) 1.6 [place] # (Auto) 1.2 H Eos # (Auto) 0.0 Baso # (Auto) 0.06 Absolute Neuts (auto) 1.32 L Platelet Evaluation Low pCO2 53 H pO2 55.0 L HCO3 20.2 L ABG pH 7.19 L* ABG Total CO2 21.8 L ABG O2 Saturation 93.2 L ABG O2 Content 12.4 L ABG Base Excess -7.9 L ABG Hemoglobin 9.8 L ABG Carboxyhemoglobin 3.2 H POC ABG HHb (Measured) 6.5 H ABG Methemoglobin 0.9 ABG O2 Capacity 13.3 L Hgb O2 Saturation 89.4 L FiO2 80.0 Crit Value Called To Rosmery Crit Value Called By Ab Blood Gas Notified Time 1038 Sodium 149 H Potassium 3.9 Chloride 117 H Carbon Dioxide 22 Anion Gap 13 BUN 28 H Creatinine 1.0 Est GFR ( Amer) > 60 Est GFR (Non-Af Amer) 58 Random Glucose 115 H Calcium 8.3 L Phosphorus 6.5 H Magnesium 2.0 Total Bilirubin 5.5 H AST 22 ALT 21 Alkaline Phosphatase 82 Total Protein 6.3 Albumin 2.4 L Globulin 3.9 Albumin/Globulin Ratio 0.6 L 08/15/18 08/16/18 15:00 05:20 WBC RBC Hgb Hct MCV MCH MCHC RDW Plt Count Manual Plt Count MPV Neut % (Auto) Lymph % (Auto) [place] % (Auto) Eos % (Auto) Baso % (Auto) Lymph # (Auto) [place] # (Auto) Eos # (Auto) Baso # (Auto) Absolute Neuts (auto) Platelet Evaluation pCO2 44 58 H pO2 74.0 L 85.0 HCO3 18.9 L 20.7 L ABG pH 7.24 L 7.16 L* ABG Total CO2 20.3 L 22.5 ABG O2 Saturation 98.1 H 98.9 H ABG O2 Content 11.8 L 12.7 L ABG Base Excess -8.0 L -8.0 L ABG Hemoglobin 8.8 L 9.4 L ABG Carboxyhemoglobin 2.4 H 2.4 H POC ABG HHb (Measured) 1.8 1.1 ABG Methemoglobin 1.1 1.2 ABG O2 Capacity 12.0 L 12.8 L Hgb O2 Saturation 94.8 L 95.3 FiO2 100.0 100.0 Crit Value Called To Dr. gee Crit Value Called By Phil jacques Blood Gas Notified Time 545 Sodium Potassium Chloride Carbon Dioxide Anion Gap BUN Creatinine Est GFR ( Amer) Est GFR (Non-Af Amer) Random Glucose Calcium Phosphorus Magnesium Total Bilirubin AST ALT Alkaline Phosphatase Total Protein Albumin Globulin Albumin/Globulin Ratio Radiology Impressions: Radiology Impressions Chest X-Ray 08/15/18 07:00 IMPRESSION: Endotracheal tube terminates at the emily and nasogastric tube terminates at the gastroesophageal junction. Repositioning is advised. No significant interval change in extensive confluent airspace disease in both lungs superimposed on a background of interstitial pulmonary fibrosis with relative sparing of the right upper lobe. Large round lucencies overlying the right lower lobe could represent pneumatoceles. Assessment/Plan - Assessment and Plan (Free Text) Assessment: Pt is a 53 yo female with a PMH of MDS, AML, sickle cell disease, lung cancer, breast cancer, who presented to [facility] ED complaining of fever and abdominal pain, rapid response was called 08/13/18 for respiratory failure, pt was transfered to the ICU where she was intubated, a central line was placed, and a BAL was performed. Plan: Neuro - intubated and sedated - propofol, fentanyl Cardio - HTN, tachycardia - stop atenolol - hydrocortisone 100mg IV, lopressor, levophed - ECHO EF42%, findings suggestive of MVP, RVSP 46, no signs of endocarditis - follow up TRINITY, ANCA, anti phospholipid, RF Pulm - COPD, tobacco abuse - hypoxic respiratory failure secondary to ARDS, likely due to diffuse alveolar hemorrhage - V/Q scan low probability for PE - BAL completed, leukopenia with no increase in monocytes, no blasts identified, normocytic/ normochromic anemia, no evidence of hemolysis - monitor respiratory status, proceed with protective lung ventilation - ABG 58/85/7.16 - vent settings: 100%, PEEP5, RR26, TV 300 - harley villa, lucio - Pulm consulted, Dr Maurer GI - NPO - CTAP shows diffuse thickening of the terminal ileum - GI consulted, Dr Dela Cruz Heme/Onc - MDS, AML, Sickle cell disease, lung cancer s/p resection, breast cancer s/p right-sided mastectomy, pancytopenia - not a candidate for bone marrow transplant - plt were transfused - possible blast crisis - WBC 4.2 - Hgb 9.6, manual plt 42, retic 0.10, PT 23.1, INR 2.08, Fibrinogen 689, fibrin degrad products >40 - tranexamic acid - C3/C4 wnl - Heme/onc consulted, Dr Lopez Nephro/ - BUN/Cr 1.0/28 - stopped IVF - start 250cc H2O q4 hours via NG tube ID - procal 43.21 - doxy, vanc, zosyn - CMV, HIV, influenza NEGATIVE - follow up aspergillus, 1-3 B-D glucan - ID consulted, Dr Yessica Rubin - will maintain blood glucose 140-180, according to the NICE-[employer]AR trial Pt seen and examined, assessment and plan discussed with Dr Paxton Tran PGY1 - Date & Time Date: 08/16/18 Time: 06:48 <Lavelle Matta - Last Filed: 08/16/18 11:57> CCU Objective - Vital Signs / Intake & Output Vital Signs (Last 4 hours): Vital Signs Temp Pulse Resp BP Pulse Ox 08/16/18 11:30 106/52 L 08/16/18 11:29 89 95 08/16/18 11:15 87 96 08/16/18 11:00 103/53 L 08/16/18 10:59 87 95 08/16/18 10:45 89 95 08/16/18 10:30 114/55 L 08/16/18 10:29 89 94 L 08/16/18 10:15 91 H 94 L 08/16/18 10:00 119/60 08/16/18 09:59 91 H 93 L 08/16/18 09:45 90 94 L 08/16/18 09:30 114/62 08/16/18 09:29 90 95 08/16/18 09:15 88 95 08/16/18 09:00 110/60 08/16/18 08:59 90 95 08/16/18 08:45 88 95 08/16/18 08:30 111/57 L 08/16/18 08:29 90 95 08/16/18 08:15 91 H 93 L 08/16/18 08:07 30 H 92 L 08/16/18 08:00 99.1 F 92 H 121/59 L 92 L Intake and Output (Last 8hrs): Intake & Output 08/15/18 08/16/18 08/16/18 22:59 06:59 14:59 Intake Total 2410 810 Output Total 500 600 Balance 1910 210 Intake: IV 2050 450 Right Femoral 1600 Tube Feeding 360 360 Output: Urine 500 600 2-way Urethral 500 600 Other: # Bowel Movements 0 0 - Medications Active Medications: Active Medications Generic Name Dose Route Start Last Admin Trade Name Freq PRN Reason Stop Dose Admin Albuterol/Ipratropium 3 ml 08/08/18 14:07 08/12/18 03:00 Duoneb 3 Mg/0.5 Mg (3 Ml) Ud IH 3 ml [id number] PRN Administration Shortness of Breath Amlodipine Besylate 10 mg 08/08/18 10:00 08/13/18 10:00 Norvasc PO Not Given DAILY KAYLEIGH Budesonide 0.5 mg 08/07/18 20:00 08/16/18 07:52 Pulmicort Respules IH 0.5 mg BIDRESP KAYLEIGH Administration Clonazepam 0.5 mg 08/07/18 18:00 08/13/18 12:42 Klonopin PO Not Given BID KAYLEIGH Protocol Diphenhydramine HCl 25 mg 08/12/18 13:50 Benadryl IVP Q8H PRN Allergy symptoms Ergocalciferol 1 cap 08/12/18 10:00 08/12/18 09:24 Drisdol 50,000 Intl Units Cap PO 1 cap SUN KAYLEIGH Administration Fentanyl Citrate 1,000 mcg in 100 mls @ 7.5 mls/hr 08/13/18 11:35 08/16/18 06:05 Fentanyl Citrate/Sodium Chloride 1 Mg/100 Ml IV 75 mcg/hr .[id number] PRN 7.5 mls/hr TITRATE PER MD ORDER Administration Protocol 75 MCG/HR Propofol 1,000 mg in 100 mls @ 1.591 mls/hr 08/13/18 12:48 08/16/18 06:03 Diprivan IV 30 mcg/kg/min .Q24H PRN 9.545 mls/hr TITRATE PER MD ORDER Administration Protocol 5 MCG/KG/MIN Doxycycline Hyclate 100 mg/ 100 mls @ 100 mls/hr 08/13/18 13:30 08/16/18 10:53 Sodium Chloride IVPB 08/20/18 13:31 100 mls/hr Q12 KAYLEIGH Administration Protocol Piperacillin Sod/Tazobactam Sod 100 mls @ 25 mls/hr 08/13/18 14:00 08/16/18 06:01 Zosyn 3.375 In Ns 100ml IVPB 08/20/18 14:01 25 mls/hr Q8 KAYLEIGH Administration Protocol Vancomycin HCl 1 gm in 250 mls @ 167 mls/hr 08/13/18 14:44 08/16/18 06:01 Vancomycin 1gm IVPB 167 mls/hr 0330,1530 KAYLEIGH Administration Protocol NOREPINEPHRINE BIT/0.9 % NACL 4 mg in 250 mls @ 15 mls/hr 08/14/18 11:47 08/16/18 06:02 Levophed 4 Mg/ 250 Ml Ns Premixed IV 7 mcg/min .[id number] PRN 26.25 mls/hr TITRATE PER MD ORDER Administration Protocol 4 MCG/MIN Potassium Chloride 20 meq/ 1,010 mls @ 100 mls/hr 08/15/18 14:33 08/15/18 15:29 Sodium Chloride IV 100 mls/hr .[id number] KAYLEIGH Administration Ibuprofen 400 mg 08/13/18 07:45 Motrin Tab PO Q6H PRN Fever >100.4 F Ipratropium Orick 0.5 mg 08/14/18 14:00 08/16/18 07:52 Atrovent IH 0.5 mg TIDRESP KAYLEIGH Administration Levalbuterol HCl 0.63 mg 08/14/18 14:00 08/16/18 07:52 Xopenex IH 0.63 mg TIDRESP KAYLEIGH Administration Loratadine 10 mg 08/08/18 10:00 08/13/18 10:00 Claritin PO Not Given DAILY KAYLEIGH Losartan Potassium 50 mg 08/07/18 18:00 08/13/18 18:14 Cozaar PO Not Given QPM KAYLEIGH Metoprolol Tartrate 5 mg 08/14/18 20:30 08/14/18 20:38 Lopressor IVP 5 mg Q6H PRN Administration HR above 130's Mupirocin 1 gm 08/13/18 20:30 08/16/18 10:28 Bactroban Ointment TOP 1 unit BID [facility] Administration Nicotine 1 patch 08/07/18 16:45 08/12/18 09:26 Nicoderm Cq TD Not Given DAILY [facility] Non-Formulary Medication 1 cap 08/08/18 10:00 08/16/18 11:01 Vitamin B Complex [Super B-50 Complex] PO Not Given DAILY [facility] Ondansetron HCl 4 mg 08/08/18 13:17 08/10/18 02:02 Zofran Inj IVP 4 mg Q6H PRN Administration Nausea/Vomiting Pantoprazole Sodium 40 mg 08/13/18 10:00 08/16/18 10:28 Protonix Inj IVP 40 mg DAILY KAYLEIGH Administration Sodium Chloride 0 ml 08/07/18 18:00 08/15/18 21:20 Malcom Nasal [place] NS Not Given QID KAYLEIGH - Patient Studies Lab Studies: Microbiology Studies 08/11/18 20:45 Blood Culture - Preliminary Blood NO GROWTH AFTER 4 DAYS 08/11/18 20:25 Blood Culture - Preliminary Blood NO GROWTH AFTER 4 DAYS 08/13/18 17:00 Gram Stain - Final Sputum Sputum Culture - Preliminary No growth. 08/13/18 17:00 Fungal Culture - Preliminary Sputum 08/13/18 11:00 Gram Stain - Final Trachasp Sputum Culture - Final NORMAL ORAL SARAH Lab Studies 08/16/18 08/16/18 08/16/18 Range/Units 11:20 10:53 06:40 WBC (4.5-11.0) 10^3/uL RBC (3.5-6.1) 10^6/uL Hgb (12.0-16.0) g/dL Hct (36.0-48.0) % MCV (80.0-105.0) fl MCH (25.0-35.0) pg MCHC (31.0-37.0) g/dl RDW (11.5-14.5) % Plt Count (120.0-450.0) 10^3/uL Manual Plt Count (120-450) K/mm3 MPV (7.0-11.0) fl [place] % (Auto) (1.0-6.0) % Eos % (Auto) (1.5-5.0) % Baso % (Auto) (0.0-3.0) % [place] # (Auto) (0.1-0.6) Eos # (Auto) (0.0-0.7) Baso # (Auto) (0.0-2.0) K/mm3 pCO2 49 H (35-45) mm/Hg pO2 72.0 L (80-100) mm/Hg HCO3 17.9 L (21-28) mmol/L ABG pH 7.17 L* (7.35-7.45) ABG Total CO2 19.4 L (22-28) mmol.L ABG O2 Saturation 97.5 (95-98) % ABG O2 Content 10.8 L (15-23) ML/dl ABG Base Excess -10.0 L (-2.0-3.0) mmol/L ABG Hemoglobin 8.1 L (11.7-17.4) g/dL ABG Carboxyhemoglobin 2.2 H (0.5-1.5) % POC ABG HHb (Measured) 2.4 (0-5) % ABG Methemoglobin 1.3 (0.0-3.0) % ABG O2 Capacity 11.1 L (16-24) mL/dl Hgb O2 Saturation 94.1 L (95.0-98.0) % FiO2 100.0 % Crit Value Called To Dr matta Crit Value Called By Stewart Blood Gas Notified Time 1057 Sodium 153 H (132-148) mmol/L Potassium 4.4 (3.6-5.0) mmol/L Chloride 123 H (98-107) mmol/L Carbon Dioxide 22 (21-33) mmol/L Anion Gap 11 (10-20) BUN 39 H (7-21) mg/dL Creatinine 1.0 (0.7-1.2) mg/dl Est GFR ( Amer) > 60 Est GFR (Non-Af Amer) 58 Random Glucose 178 H (70-110) mg/dL Lactic Acid 1.4 (0.7-2.1) mmol/L Calcium 8.7 (8.4-10.5) mg/dL Phosphorus (2.5-4.5) mg/dL Magnesium (1.7-2.2) mg/dL Total Bilirubin (0.2-1.3) mg/dL AST (14-36) U/L ALT (7-56) U/L Alkaline Phosphatase (38-126) U/L Total Protein (5.8-8.3) g/dL Albumin (3.0-4.8) g/dL Globulin gm/dL Albumin/Globulin Ratio (1.1-1.8) Tot Complement (CH50) (31-60) U/mL Beta-(1,3)-D-Glucan (<60) pg/mL B-(1,3)-D-Glucan Intrp 08/16/18 08/16/18 08/16/18 Range/Units 06:00 05:48 05:20 WBC 5.7 D (4.5-11.0) 10^3/uL RBC 3.18 L (3.5-6.1) 10^6/uL Hgb 9.1 L (12.0-16.0) g/dL Hct 27.9 L (36.0-48.0) % MCV 87.7 (80.0-105.0) fl MCH 28.6 (25.0-35.0) pg MCHC 32.6 (31.0-37.0) g/dl RDW 18.5 H (11.5-14.5) % Plt Count 14 L* (120.0-450.0) 10^3/uL Manual Plt Count 17 L* (120-450) K/mm3 MPV 10.8 (7.0-11.0) fl [place] % (Auto) 15.9 H (1.0-6.0) % Eos % (Auto) 3.5 (1.5-5.0) % Baso % (Auto) 1.0 (0.0-3.0) % [place] # (Auto) 0.9 H (0.1-0.6) Eos # (Auto) 0.2 (0.0-0.7) Baso # (Auto) 0.06 (0.0-2.0) K/mm3 pCO2 58 H (35-45) mm/Hg pO2 85.0 (80-100) mm/Hg HCO3 20.7 L (21-28) mmol/L ABG pH 7.16 L* (7.35-7.45) ABG Total CO2 22.5 (22-28) mmol.L ABG O2 Saturation 98.9 H (95-98) % ABG O2 Content 12.7 L (15-23) ML/dl ABG Base Excess -8.0 L (-2.0-3.0) mmol/L ABG Hemoglobin 9.4 L (11.7-17.4) g/dL ABG Carboxyhemoglobin 2.4 H (0.5-1.5) % POC ABG HHb (Measured) 1.1 (0-5) % ABG Methemoglobin 1.2 (0.0-3.0) % ABG O2 Capacity 12.8 L (16-24) mL/dl Hgb O2 Saturation 95.3 (95.0-98.0) % FiO2 100.0 % Crit Value Called To [id number] Crit Value Called By Phil jacques Blood Gas Notified Time 545 Sodium 153 H (132-148) mmol/L Potassium 4.8 (3.6-5.0) mmol/L Chloride 122 H (98-107) mmol/L Carbon Dioxide 23 (21-33) mmol/L Anion Gap 13 (10-20) BUN 39 H (7-21) mg/dL Creatinine 1.0 (0.7-1.2) mg/dl Est GFR ( Amer) > 60 Est GFR (Non-Af Amer) 58 Random Glucose 165 H (70-110) mg/dL Lactic Acid (0.7-2.1) mmol/L Calcium 8.9 (8.4-10.5) mg/dL Phosphorus 6.1 H (2.5-4.5) mg/dL Magnesium 2.2 (1.7-2.2) mg/dL Total Bilirubin 4.4 H (0.2-1.3) mg/dL AST 21 (14-36) U/L ALT 17 (7-56) U/L Alkaline Phosphatase 97 (38-126) U/L Total Protein 6.4 (5.8-8.3) g/dL Albumin 2.5 L (3.0-4.8) g/dL Globulin 3.9 gm/dL Albumin/Globulin Ratio 0.7 L (1.1-1.8) Tot Complement (CH50) (31-60) U/mL Beta-(1,3)-D-Glucan (<60) pg/mL B-(1,3)-D-Glucan Intrp 08/15/18 08/14/18 08/13/18 Range/Units 15:00 17:00 13:15 WBC (4.5-11.0) 10^3/uL RBC (3.5-6.1) 10^6/uL Hgb (12.0-16.0) g/dL Hct (36.0-48.0) % MCV (80.0-105.0) fl MCH (25.0-35.0) pg MCHC (31.0-37.0) g/dl RDW (11.5-14.5) % Plt Count (120.0-450.0) 10^3/uL Manual Plt Count (120-450) K/mm3 MPV (7.0-11.0) fl [place] % (Auto) (1.0-6.0) % Eos % (Auto) (1.5-5.0) % Baso % (Auto) (0.0-3.0) % [place] # (Auto) (0.1-0.6) Eos # (Auto) (0.0-0.7) Baso # (Auto) (0.0-2.0) K/mm3 pCO2 44 (35-45) mm/Hg pO2 74.0 L (80-100) mm/Hg HCO3 18.9 L (21-28) mmol/L ABG pH 7.24 L (7.35-7.45) ABG Total CO2 20.3 L (22-28) mmol.L ABG O2 Saturation 98.1 H (95-98) % ABG O2 Content 11.8 L (15-23) ML/dl ABG Base Excess -8.0 L (-2.0-3.0) mmol/L ABG Hemoglobin 8.8 L (11.7-17.4) g/dL ABG Carboxyhemoglobin 2.4 H (0.5-1.5) % POC ABG HHb (Measured) 1.8 (0-5) % ABG Methemoglobin 1.1 (0.0-3.0) % ABG O2 Capacity 12.0 L (16-24) mL/dl Hgb O2 Saturation 94.8 L (95.0-98.0) % FiO2 100.0 % Crit Value Called To Crit Value Called By Blood Gas Notified Time Sodium (132-148) mmol/L Potassium (3.6-5.0) mmol/L Chloride (98-107) mmol/L Carbon Dioxide (21-33) mmol/L Anion Gap (10-20) BUN (7-21) mg/dL Creatinine (0.7-1.2) mg/dl Est GFR ( Amer) Est GFR (Non-Af Amer) Random Glucose (70-110) mg/dL Lactic Acid (0.7-2.1) mmol/L Calcium (8.4-10.5) mg/dL Phosphorus (2.5-4.5) mg/dL Magnesium (1.7-2.2) mg/dL Total Bilirubin (0.2-1.3) mg/dL AST (14-36) U/L ALT (7-56) U/L Alkaline Phosphatase (38-126) U/L Total Protein (5.8-8.3) g/dL Albumin (3.0-4.8) g/dL Globulin gm/dL Albumin/Globulin Ratio (1.1-1.8) Tot Complement (CH50) >60 H (31-60) U/mL Beta-(1,3)-D-Glucan 74 H (<60) pg/mL B-(1,3)-D-Glucan Intrp Indeterminate H Laboratory Results - last 24 hr 08/13/18 08/14/18 08/15/18 13:15 17:00 15:00 WBC RBC Hgb Hct MCV MCH MCHC RDW Plt Count Manual Plt Count MPV [place] % (Auto) Eos % (Auto) Baso % (Auto) [place] # (Auto) Eos # (Auto) Baso # (Auto) pCO2 44 pO2 74.0 L HCO3 18.9 L ABG pH 7.24 L ABG Total CO2 20.3 L ABG O2 Saturation 98.1 H ABG O2 Content 11.8 L ABG Base Excess -8.0 L ABG Hemoglobin 8.8 L ABG Carboxyhemoglobin 2.4 H POC ABG HHb (Measured) 1.8 ABG Methemoglobin 1.1 ABG O2 Capacity 12.0 L Hgb O2 Saturation 94.8 L FiO2 100.0 Crit Value Called To Crit Value Called By Blood Gas Notified Time Sodium Potassium Chloride Carbon Dioxide Anion Gap BUN Creatinine Est GFR ( Amer) Est GFR (Non-Af Amer) Random Glucose Lactic Acid Calcium Phosphorus Magnesium Total Bilirubin AST ALT Alkaline Phosphatase Total Protein Albumin Globulin Albumin/Globulin Ratio Tot Complement (CH50) >60 H Beta-(1,3)-D-Glucan 74 H B-(1,3)-D-Glucan Intrp Indeterminate H 08/16/18 08/16/18 08/16/18 05:20 05:48 06:00 WBC 5.7 D RBC 3.18 L Hgb 9.1 L Hct 27.9 L MCV 87.7 MCH 28.6 MCHC 32.6 RDW 18.5 H Plt Count 14 L* Manual Plt Count 17 L* MPV 10.8 [place] % (Auto) 15.9 H Eos % (Auto) 3.5 Baso % (Auto) 1.0 [place] # (Auto) 0.9 H Eos # (Auto) 0.2 Baso # (Auto) 0.06 pCO2 58 H pO2 85.0 HCO3 20.7 L ABG pH 7.16 L* ABG Total CO2 22.5 ABG O2 Saturation 98.9 H ABG O2 Content 12.7 L ABG Base Excess -8.0 L ABG Hemoglobin 9.4 L ABG Carboxyhemoglobin 2.4 H POC ABG HHb (Measured) 1.1 ABG Methemoglobin 1.2 ABG O2 Capacity 12.8 L Hgb O2 Saturation 95.3 FiO2 100.0 Crit Value Called To Dr. gee Crit Value Called By Phil jacques Blood Gas Notified Time 545 Sodium 153 H Potassium 4.8 Chloride 122 H Carbon Dioxide 23 Anion Gap 13 BUN 39 H Creatinine 1.0 Est GFR ( Amer) > 60 Est GFR (Non-Af Amer) 58 Random Glucose 165 H Lactic Acid Calcium 8.9 Phosphorus 6.1 H Magnesium 2.2 Total Bilirubin 4.4 H AST 21 ALT 17 Alkaline Phosphatase 97 Total Protein 6.4 Albumin 2.5 L Globulin 3.9 Albumin/Globulin Ratio 0.7 L Tot Complement (CH50) Beta-(1,3)-D-Glucan B-(1,3)-D-Glucan Intrp 08/16/18 08/16/18 08/16/18 06:40 10:53 11:20 WBC RBC Hgb Hct MCV MCH MCHC RDW Plt Count Manual Plt Count MPV [place] % (Auto) Eos % (Auto) Baso % (Auto) [place] # (Auto) Eos # (Auto) Baso # (Auto) pCO2 49 H pO2 72.0 L HCO3 17.9 L ABG pH 7.17 L* ABG Total CO2 19.4 L ABG O2 Saturation 97.5 ABG O2 Content 10.8 L ABG Base Excess -10.0 L ABG Hemoglobin 8.1 L ABG Carboxyhemoglobin 2.2 H POC ABG HHb (Measured) 2.4 ABG Methemoglobin 1.3 ABG O2 Capacity 11.1 L Hgb O2 Saturation 94.1 L FiO2 100.0 Crit Value Called To Dr matta Crit Value Called By Stewart Blood Gas Notified Time 1057 Sodium 153 H Potassium 4.4 Chloride 123 H Carbon Dioxide 22 Anion Gap 11 BUN 39 H Creatinine 1.0 Est GFR ( Amer) > 60 Est GFR (Non-Af Amer) 58 Random Glucose 178 H Lactic Acid 1.4 Calcium 8.7 Phosphorus Magnesium Total Bilirubin AST ALT Alkaline Phosphatase Total Protein Albumin Globulin Albumin/Globulin Ratio Tot Complement (CH50) Beta-(1,3)-D-Glucan B-(1,3)-D-Glucan Intrp Radiology Impressions: Radiology Impressions Chest X-Ray 08/16/18 07:00 IMPRESSION: No change in bilateral infiltrates. Suboptimal position of the nasogastric tube in the distal esophagus. Attending/Attestation - Attestation I have personally seen and examined this patient.: Yes I have fully participated in the care of the patient.: Yes I have reviewed all pertinent clinical information: Yes Notes (Text): 08/16/18 11:54 The patient was seen and examined at the bedside. Patient care was discussed with resident Medical records, lab studies were reviewed and management issues were discussed and formulated. Agree with above treatment plans as outlined in 's note with addition of the following: Acute Respiratory Failure \ Hypercapnea \ Hypoxemia \ Septic shock \ PNA \ Hemoptysis \ Lung CA \ COPD \ AML \ Thrombocytopenia \ Hypernatremia -hemodynamic monitoring to maintain MAP>65; continue vasopressor support with levophed -hold atenolol while hypotensive on vasopressor support -mechanical ventilation and o2 supplementation to maintain Spo2 >90 Pao2>60 -monitor for TV 6ml\kg IBW and plateau pressure <30 -ABG in AM reviewed and vent settings changed -CXR reviewed -continue nebs and steroids and pulmonary toileting -continue broad spectrum Abx as per ID team and f\u cultures -f\u Bun\Cr and U\o; monitor and replace e-lites; hold off IVF at this time -monitor serial Na+ and start free water -Tube feds diet and aspiration precautions -heme\onc team f\u; transfuse platelets today -palliation team f\u appreciated; pt is now DNR as per family request -DVT \ PUD prophylaxis CCM time 34min
[2018-08-16 06:59] LABS: BASO # 0.06 K/mm3 (0.0-2.0); EOS # 0.2 (0.0-0.7); EOS % 3.5 % (1.5-5.0); HEMOGLOBIN 9.1 g/dL (12.0-16.0); MEAN CELL VOLUME 87.7 fl (80.0-105.0); MEAN CORPUSCULAR HEMOGLOBIN 28.6 pg (25.0-35.0); MEAN CORPUSCULAR HGB CONC 32.6 g/dl (31.0-37.0); MEAN PLATELET VOLUME 10.8 fl (7.0-11.0); MONO # 0.9 (0.1-0.6); MONO % 15.9 % (1.0-6.0); RBC 3.18 10^6/uL (3.5-6.1); RED CELL DISTRIBUTION WIDTH 18.5 % (11.5-14.5); WHITE BLOOD COUNT 5.7 10^3/uL (4.5-11.0)
[2018-08-16 07:06] LABS: ALB/GLOB RATIO 0.7 (1.1-1.8); ALBUMIN 2.5 g/dL (3.0-4.8); ALT/SGPT 17 U/L (7-56); AST/SGOT 21 U/L (14-36); BLOOD UREA NITROGEN 39 mg/dL (7-21); CALCIUM 8.9 mg/dL (8.4-10.5); GFR NON-AFRICAN AMERICAN 58
--- NOTE | 2018-08-16 07:14 | CP.PCM.PN ---
<Stewart Arroyo - Last Filed: 08/16/18 21:34> Subjective - Date & Time of Evaluation Date of Evaluation: 08/16/18 Time of Evaluation: 06:14 - Subjective Subjective: Stewart Arroyo PGY2 GI Progress Note Patient was seen and examined at bedside in ICU. The patient is intubated, remains on vent and on sedation. she is requiring vasopressor BP support. Overnight, the patient spiked a fever, and was started on a cooling blanket. CXR reviewed, mainly unchanged from prior days. Per nursing staff, the patient did not have any BM's overnight. Total bilirubin is trending down. Objective - Vital Signs/Intake and Output Vital Signs (last 24 hours): Temp Pulse Resp BP Pulse Ox 100.6 F H 101 H 24 130/64 94 L 08/16/18 06:15 08/16/18 06:30 08/13/18 14:00 08/16/18 06:30 08/16/18 06:30 Intake and Output: 08/16/18 08/16/18 06:59 18:59 Intake Total 810 Output Total 600 Balance 210 - Medications Medications: Current Medications Albuterol/Ipratropium (Duoneb 3 Mg/0.5 Mg (3 Ml) Ud) 3 ml IH [id number] PRN PRN Reason: Shortness of Breath Last Admin: 08/12/18 03:00 Dose: 3 ml Amlodipine Besylate (Norvasc) 10 mg PO DAILY [facility] Last Admin: 08/13/18 10:00 Dose: Not Given Atenolol (Tenormin) 50 mg PO DAILY [facility] Last Admin: 08/15/18 09:34 Dose: 50 mg Budesonide (Pulmicort Respules) 0.5 mg IH BIDRESP [facility] Last Admin: 08/15/18 19:28 Dose: 0.5 mg Clonazepam (Klonopin) 0.5 mg PO BID [facility]; Protocol Last Admin: 08/13/18 12:42 Dose: Not Given Diphenhydramine HCl (Benadryl) 25 mg IVP Q8H PRN PRN Reason: Allergy symptoms Ergocalciferol (Drisdol 50,000 Intl Units Cap) 1 cap PO SUN [facility] Last Admin: 08/12/18 09:24 Dose: 1 cap Fentanyl Citrate (Fentanyl Citrate/Sodium Chloride 1 Mg/100 Ml) 1,000 mcg in 100 mls @ 7.5 mls/hr IV .[id number] PRN; Protocol PRN Reason: TITRATE PER MD ORDER Last Admin: 08/16/18 06:05 Dose: 75 mcg/hr, 7.5 mls/hr Propofol (Diprivan) 1,000 mg in 100 mls @ 1.591 mls/hr IV .Q24H PRN; Protocol PRN Reason: TITRATE PER MD ORDER Last Admin: 08/16/18 06:03 Dose: 30 mcg/kg/min, 9.545 mls/hr Doxycycline Hyclate 100 mg/ (Sodium Chloride) 100 mls @ 100 mls/hr IVPB Q12 [facility]; Protocol Stop: 08/20/18 13:31 Last Admin: 08/15/18 21:17 Dose: 100 mls/hr Piperacillin Sod/Tazobactam Sod (Zosyn 3.375 In Ns 100ml) 100 mls @ 25 mls/hr IVPB Q8 [facility]; Protocol Stop: 08/20/18 14:01 Last Admin: 08/16/18 06:01 Dose: 25 mls/hr Vancomycin HCl (Vancomycin 1gm) 1 gm in 250 mls @ 167 mls/hr IVPB 0330,1530 [facility]; Protocol Last Admin: 08/16/18 06:01 Dose: 167 mls/hr NOREPINEPHRINE BIT/0.9 % NACL (Levophed 4 Mg/ 250 Ml Ns Premixed) 4 mg in 250 mls @ 15 mls/hr IV .[id number] PRN; Protocol PRN Reason: TITRATE PER MD ORDER Last Admin: 08/16/18 06:02 Dose: 7 mcg/min, 26.25 mls/hr Potassium Chloride 20 meq/ (Sodium Chloride) 1,010 mls @ 100 mls/hr IV .Q10H6M [facility] Last Admin: 08/15/18 15:29 Dose: 100 mls/hr Ibuprofen (Motrin Tab) 400 mg PO Q6H PRN PRN Reason: Fever >100.4 F Ipratropium [place] (Atrovent) 0.5 mg TIDRESP [facility] Last Admin: 08/15/18 19:27 Dose: 0.5 mg Levalbuterol HCl (Xopenex) 0.63 mg IH TIDRESP [facility] Last Admin: 08/15/18 19:29 Dose: 0.63 mg Loratadine (Claritin) 10 mg PO DAILY [facility] Last Admin: 08/13/18 10:00 Dose: Not Given Losartan Potassium (Cozaar) 50 mg PO QPM [facility] Last Admin: 08/13/18 18:14 Dose: Not Given Magnesium Oxide (Mag-Ox) 400 mg PO BID [facility] Last Admin: 08/15/18 17:11 Dose: 400 mg Metoprolol Tartrate (Lopressor) 5 mg IVP Q6H PRN PRN Reason: HR above 130's Last Admin: 08/14/18 20:38 Dose: 5 mg Mupirocin (Bactroban Ointment) 1 gm TOP BID [facility] Last Admin: 08/15/18 17:11 Dose: 2 unit Nicotine (Nicoderm Cq) 1 patch TD DAILY [facility] Last Admin: 08/12/18 09:26 Dose: Not Given Non-Formulary Medication (Vitamin B Complex [Super B-50 Complex]) 1 cap PO ZENAIDA LY [facility] Last Admin: 08/15/18 09:36 Dose: Not Given Ondansetron HCl (Zofran Inj) 4 mg IVP Q6H PRN PRN Reason: Nausea/Vomiting Last Admin: 08/10/18 02:02 Dose: 4 mg Pantoprazole Sodium (Protonix Inj) 40 mg IVP DAILY [facility] Last Admin: 08/15/18 09:33 Dose: 40 mg Potassium Chloride (Potassium Chloride Oral Soln) 20 meq PO DAILY [facility] Last Admin: 08/15/18 15:30 Dose: Not Given Sodium Chloride ([place] Nasal [place]) 0 ml NS QID [facility] Last Admin: 08/15/18 21:20 Dose: Not Given Tramadol HCl (Ultram) 50 mg PO TID PRN PRN Reason: Pain, moderate (4-7) Tranexamic Acid (Tranexamic Acid) 500 mg IH TIDRESP [facility] Last Admin: 08/15/18 20:30 Dose: 500 mg - Labs Labs: 08/15/18 06:00 08/16/18 05:48 PT 23.1 SECONDS (9.4-12.5) H 08/14/18 17:00 INR 2.08 08/14/18 17:00 APTT 30.6 Seconds (26.9-38.3) 08/13/18 17:10 - Constitutional Appears: Cachectic, Chronically Ill - Head Exam Head Exam: ATRAUMATIC, NORMAL INSPECTION - Eye Exam Eye Exam: EOMI, Scleral icterus - ENT Exam ENT Exam: Mucous Membranes Moist Additional comments: ETT/Dobhoff in place - Neck Exam Neck Exam: Full ROM, Normal Inspection - Respiratory Exam Respiratory Exam: Rhonchi, Decreased breath sounds. absent: Respiratory Distress - Cardiovascular Exam Cardiovascular Exam: Tachycardia, +S1, +S2 - GI/Abdominal Exam GI & Abdominal Exam: Soft, Normal Bowel Sounds. absent: Distended - Extremities Exam Extremities Exam: Full ROM, Normal Inspection - Neurological Exam Neurological Exam: Alert, Awake - Skin Skin Exam: Normal Color, Warm Assessment and Plan - Assessment and Plan (Free Text) Assessment: 53 year old female with a PMH of MDS (high grade, s/p chemotherapy), immunosuppression, lung cancer (s/p lobectomy, 2017), breast cancer s/p R breast mastectomy (2004), COPD, and endocarditis who is admitted for fevers. Patient complaining of mild abdominal pain. Labs and scans were reviewed. CT abd showing pancolitis, cdiff was negative for toxin x2. V/Q scan was done showing low probability for PE. Appears patient is in blast crisis and her thrombocytopenia has complicated course. Due to blood-tinged sputum and ensuing respiratory distress, patient was transferred to ICU, intubated and underwent BAL. She remains in ICU with sedation and on vent at this time. Isolated conjugated hyperbilirubinema is noted suggesting sepsis vs drug-induced hepatotoxicty; scans reviewed showing no obstructive biliary etiology. Plan: - cont ICU management - Abx per ID - c.diff is negative - NPO - PPI for GI ppx in ICU pt - monitor H/H; transfusing per Heme/Onc - Palliative care is following the case; patient now DNR - no endoscopic intervention required at this time - further recs per Dr. Dela Cruz Case was reviewed and discussed with Dr. Dela Cruz <Efrem Dela Cruz V - Last Filed: 08/16/18 23:11> Objective - Vital Signs/Intake and Output Vital Signs (last 24 hours): Temp Pulse Resp BP Pulse Ox 98.6 F 92 H 30 H 115/54 L 94 L 08/16/18 12:00 08/16/18 22:00 08/16/18 08:07 08/16/18 21:30 08/16/18 21:45 Intake and Output: 08/16/18 08/17/18 18:59 06:59 Intake Total 100 2100 Output Total 1000 Balance 100 1100 - Medications Medications: Current Medications Albumin Human (Albumin Human 25% (12.5 Gm/50 Ml)) 12.5 gm IV Q6H [facility] Stop: 08/17/18 23:59 Last Admin: 08/16/18 19:15 Dose: 12.5 gm Albuterol/Ipratropium (Duoneb 3 Mg/0.5 Mg (3 Ml) Ud) 3 ml IH [id number] PRN PRN Reason: Shortness of Breath Last Admin: 08/12/18 03:00 Dose: 3 ml Albuterol/Ipratropium (Duoneb 3 Mg/0.5 Mg (3 Ml) Ud) 3 ml IH [id number] [facility] Last Admin: 08/16/18 20:29 Dose: 3 ml Amlodipine Besylate (Norvasc) 10 mg PO DAILY [facility] Last Admin: 08/13/18 10:00 Dose: Not Given Budesonide (Pulmicort Respules) 0.5 mg IH BIDRESP [facility] Last Admin: 08/16/18 20:30 Dose: 0.5 mg Clonazepam (Klonopin) 0.5 mg PO BID [facility]; Protocol Last Admin: 08/13/18 12:42 Dose: Not Given Diphenhydramine HCl (Benadryl) 25 mg IVP Q8H PRN PRN Reason: Allergy symptoms Ergocalciferol (Drisdol 50,000 Intl Units Cap) 1 cap PO SUN [facility] Last Admin: 08/12/18 09:24 Dose: 1 cap Fentanyl Citrate (Fentanyl Citrate/Sodium Chloride 1 Mg/100 Ml) 1,000 mcg in 100 mls @ 7.5 mls/hr IV .[id number] PRN; Protocol PRN Reason: TITRATE PER MD ORDER Last Admin: 08/16/18 21:27 Dose: 75 mcg/hr, 7.5 mls/hr Propofol (Diprivan) 1,000 mg in 100 mls @ 1.591 mls/hr IV .Q24H PRN; Protocol PRN Reason: TITRATE PER MD ORDER Last Admin: 08/16/18 21:26 Dose: 30 mcg/kg/min, 9.545 mls/hr Doxycycline Hyclate 100 mg/ (Sodium Chloride) 100 mls @ 100 mls/hr IVPB Q12 [facility]; Protocol Stop: 08/20/18 13:31 Last Admin: 08/16/18 21:28 Dose: 100 mls/hr Piperacillin Sod/Tazobactam Sod (Zosyn 3.375 In Ns 100ml) 100 mls @ 25 mls/hr IVPB Q8 [facility]; Protocol Stop: 08/20/18 14:01 Last Admin: 08/16/18 21:28 Dose: 25 mls/hr NOREPINEPHRINE BIT/0.9 % NACL (Levophed 4 Mg/ 250 Ml Ns Premixed) 4 mg in 250 mls @ 15 mls/hr IV .[id number] PRN; Protocol PRN Reason: TITRATE PER MD ORDER Last Titration: 08/16/18 21:27 Dose: Infused Potassium Chloride 20 meq/ (Sodium Chloride) 1,010 mls @ 100 mls/hr IV .Q10H6M [facility] Last Admin: 08/15/18 15:29 Dose: 100 mls/hr Ibuprofen (Motrin Tab) 400 mg PO Q6H PRN PRN Reason: Fever >100.4 F Loratadine (Claritin) 10 mg PO DAILY [facility] Last Admin: 08/13/18 10:00 Dose: Not Given Losartan Potassium (Cozaar) 50 mg PO QPM [facility] Last Admin: 08/13/18 18:14 Dose: Not Given Metoprolol Tartrate (Lopressor) 5 mg IVP Q4H PRN PRN Reason: Heart rate Mupirocin (Bactroban Ointment) 1 gm TOP BID [facility] Last Admin: 08/16/18 19:14 Dose: 1 unit Nicotine (Nicoderm Cq) 1 patch TD DAILY [facility] Last Admin: 08/12/18 09:26 Dose: Not Given Non-Formulary Medication (Vitamin B Complex [Super B-50 Complex]) 1 cap PO DAILY [facility] Last Admin: 08/16/18 11:01 Dose: Not Given Ondansetron HCl (Zofran Inj) 4 mg IVP Q6H PRN PRN Reason: Nausea/Vomiting Last Admin: 08/10/18 02:02 Dose: 4 mg Pantoprazole Sodium (Protonix Inj) 40 mg IVP DAILY [facility] Last Admin: 08/16/18 10:28 Dose: 40 mg Sodium Chloride ([place] Nasal [place]) 0 ml NS QID [facility] Last Admin: 08/16/18 21:28 Dose: Not Given - Labs Labs: 08/16/18 06:00 08/16/18 11:20 PT 23.1 SECONDS (9.4-12.5) H 08/14/18 17:00 INR 2.08 08/14/18 17:00 APTT 30.6 Seconds (26.9-38.3) 08/13/18 17:10 Attending/Attestation - Attestation I have personally seen and examined this patient.: Yes I have fully participated in the care of the patient.: Yes I have reviewed all pertinent clinical information, including history, physical exam and plan: Yes Notes (Text): This patient was seen and evaluated earlier along with the resident. This is an addendum to the GI gas report dictated by the medical assisting program director. Patient remains intubated. LFTs show slightly downward trend. Most likely etiology is multifactorial. Sepsis plus drug-induced and hepatic congestion or contributory factors. Ultrasound showed is normal CBD no gallstones Sepsis pneumonia, pancolitis stool for C. difficile negative. P.o. Devaughn was DC'd by the ID. 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 Continue present supportive care management 08/16/18 23:07
[2018-08-16 07:17] LABS: PLATELET COUNT 14 10^3/uL (120.0-450.0)
[2018-08-16] MEDS: Budesonide 0.5 mg/2 ml Inhal Susp UD IH SCH ×2 (07:52→20:30)
[2018-08-16] MEDS: Levalbuterol 0.63 MG/3 ML Inhal Soln UD IH SCH ×2 (07:52→13:43)
[2018-08-16] MEDS: Ipratropium 0.02% Inhal Soln (0.5 mg/2.5 ml) UD IH SCH ×2 (07:52→13:43)
[2018-08-16] MEDS: Tranexamic Acid 100 mg/ml IH SCH (07:53)
--- NOTE | 2018-08-16 07:54 | CP.PCM.PN ---
Subjective - Date & Time of Evaluation Date of Evaluation: 08/16/18 Time of Evaluation: 07:52 - Subjective Subjective: Christopher Roberson DO, PGY-1 Hematology/Oncology Progress Note for Dr. Lopez Patient was seen and examined at bedside this AM. She remains intubated, sedated on propofol and fentanyl drips. She has been tolerating feedings well. Objective - Vital Signs/Intake and Output Vital Signs (last 24 hours): Temp Pulse Resp BP Pulse Ox 100.6 F H 101 H 24 130/64 94 L 08/16/18 06:15 08/16/18 06:30 08/13/18 14:00 08/16/18 06:30 08/16/18 06:30 Intake and Output: 08/16/18 08/16/18 06:59 18:59 Intake Total 810 Output Total 600 Balance 210 - Medications Medications: Current Medications Albuterol/Ipratropium (Duoneb 3 Mg/0.5 Mg (3 Ml) Ud) 3 ml IH [id number] PRN PRN Reason: Shortness of Breath Last Admin: 08/12/18 03:00 Dose: 3 ml Amlodipine Besylate (Norvasc) 10 mg PO DAILY [facility] Last Admin: 08/13/18 10:00 Dose: Not Given Atenolol (Tenormin) 50 mg PO DAILY [facility] Last Admin: 08/15/18 09:34 Dose: 50 mg Budesonide (Pulmicort Respules) 0.5 mg IH BIDRESP [facility] Last Admin: 08/15/18 19:28 Dose: 0.5 mg Clonazepam (Klonopin) 0.5 mg PO BID [facility]; Protocol Last Admin: 08/13/18 12:42 Dose: Not Given Diphenhydramine HCl (Benadryl) 25 mg IVP Q8H PRN PRN Reason: Allergy symptoms Ergocalciferol (Drisdol 50,000 Intl Units Cap) 1 cap PO SUN [facility] Last Admin: 08/12/18 09:24 Dose: 1 cap Fentanyl Citrate (Fentanyl Citrate/Sodium Chloride 1 Mg/100 Ml) 1,000 mcg in 100 mls @ 7.5 mls/hr IV .[id number] PRN; Protocol PRN Reason: TITRATE PER MD ORDER Last Admin: 08/16/18 06:05 Dose: 75 mcg/hr, 7.5 mls/hr Propofol (Diprivan) 1,000 mg in 100 mls @ 1.591 mls/hr IV .Q24H PRN; Protocol PRN Reason: TITRATE PER MD ORDER Last Admin: 08/16/18 06:03 Dose: 30 mcg/kg/min, 9.545 mls/hr Doxycycline Hyclate 100 mg/ (Sodium Chloride) 100 mls @ 100 mls/hr IVPB Q12 [facility]; Protocol Stop: 08/20/18 13:31 Last Admin: 08/15/18 21:17 Dose: 100 mls/hr Piperacillin Sod/Tazobactam Sod (Zosyn 3.375 In Ns 100ml) 100 mls @ 25 mls/hr IVPB Q8 [facility]; Protocol Stop: 08/20/18 14:01 Last Admin: 08/16/18 06:01 Dose: 25 mls/hr Vancomycin HCl (Vancomycin 1gm) 1 gm in 250 mls @ 167 mls/hr IVPB 0330,1530 [facility]; Protocol Last Admin: 08/16/18 06:01 Dose: 167 mls/hr NOREPINEPHRINE BIT/0.9 % NACL (Levophed 4 Mg/ 250 Ml Ns Premixed) 4 mg in 250 mls @ 15 mls/hr IV .[id number] PRN; Protocol PRN Reason: TITRATE PER MD ORDER Last Admin: 08/16/18 06:02 Dose: 7 mcg/min, 26.25 mls/hr Potassium Chloride 20 meq/ (Sodium Chloride) 1,010 mls @ 100 mls/hr IV .Q10H6M [facility] Last Admin: 08/15/18 15:29 Dose: 100 mls/hr Ibuprofen (Motrin Tab) 400 mg PO Q6H PRN PRN Reason: Fever >100.4 F Ipratropium [place] (Atrovent) 0.5 mg IH TIDRESP [facility] Last Admin: 08/15/18 19:27 Dose: 0.5 mg Levalbuterol HCl (Xopenex) 0.63 mg IH TIDRESP [facility] Last Admin: 08/15/18 19:29 Dose: 0.63 mg Loratadine (Claritin) 10 mg PO DAILY [facility] Last Admin: 08/13/18 10:00 Dose: Not Given Losartan Potassium (Cozaar) 50 mg PO QPM [facility] Last Admin: 08/13/18 18:14 Dose: Not Given Magnesium Oxide (Mag-Ox) 400 mg PO BID [facility] Last Admin: 08/15/18 17:11 Dose: 400 mg Metoprolol Tartrate (Lopressor) 5 mg IVP Q6H PRN PRN Reason: HR above 130's Last Admin: 08/14/18 20:38 Dose: 5 mg Mupirocin (Bactroban Ointment) 1 gm TOP BID [facility] Last Admin: 08/15/18 17:11 Dose: 2 unit Nicotine (Nicoderm Cq) 1 patch TD DAILY [facility] Last Admin: 08/12/18 09:26 Dose: Not Given Non-Formulary Medication (Vitamin B Complex [Super B-50 Complex]) 1 cap PO DAILY [facility] Last Admin: 08/15/18 09:36 Dose: Not Given Ondansetron HCl (Zofran Inj) 4 mg IVP Q6H PRN PRN Reason: Nausea/Vomiting Last Admin: 08/10/18 02:02 Dose: 4 mg Pantoprazole Sodium (Protonix Inj) 40 mg IVP DAILY [facility] Last Admin: 08/15/18 09:33 Dose: 40 mg Potassium Chloride (Potassium Chloride Oral Soln) 20 meq PO DAILY [facility] Last Admin: 08/15/18 15:30 Dose: Not Given Sodium Chloride ([place] Nasal [place]) 0 ml NS QID [facility] Last Admin: 08/15/18 21:20 Dose: Not Given Tramadol HCl (Ultram) 50 mg PO TID PRN PRN Reason: Pain, moderate (4-7) Tranexamic Acid (Tranexamic Acid) 500 mg IH TIDRESP [facility] Last Admin: 08/15/18 20:30 Dose: 500 mg - Labs Labs: 08/16/18 06:00 08/16/18 05:48 PT 23.1 SECONDS (9.4-12.5) H 08/14/18 17:00 INR 2.08 08/14/18 17:00 APTT 30.6 Seconds (26.9-38.3) 08/13/18 17:10 - Constitutional Appears: Unkempt, Cachectic, Chronically Ill - Head Exam Head Exam: ATRAUMATIC, NORMOCEPHALIC - Eye Exam Eye Exam: EOMI, PERRL - ENT Exam ENT Exam: Mucous Membranes Moist - Neck Exam Neck Exam: absent: Lymphadenopathy, Thyromegaly - Respiratory Exam Respiratory Exam: Decreased Breath Sounds (slight decreased breath sounds b/l, on ventilator, breath sounds ausculatated b/l), Rhonchi (coarse breath sounds b/l). absent: Rales, Wheezes - Cardiovascular Exam Cardiovascular Exam: REGULAR RHYTHM, RRR, +S1, +S2. absent: Gallop, Rubs, Murmur - GI/Abdominal Exam GI & Abdominal Exam: Soft, Normal Bowel Sounds. absent: Guarding, Tenderness - Extremities Exam Extremities Exam: absent: Joint Swelling, Pedal Edema - Back Exam Back Exam: NORMAL INSPECTION - Neurological Exam Additional comments: intubated, sedated - Skin Skin Exam: Dry, Warm Assessment and Plan - Assessment and Plan (Free Text) Assessment: 53 yo F with PMH of accelerated MDS (previously on cyclical therapy with cytaratine currently on hold secondary to previous hospital admission for PNA an d acute drops in blood counts), immunosuppression, lung cancer (s/p lobectomy), R breast mastectomy, COPD, and endocarditis presented to infusion clinic prior to admission for repeat platelet transfusion. She appeared acutely ill at that time with Tmax of 101.2 and tachycardic. She was subsequently sent to ED for evaluation, was admitted, and continues to be on broad spectrum abx. During hospital stay, patient became increasingly tachypneic and hypoxemic, prompting urgent transfer to MICU. 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 Flow cytometry results completed on admission show high blast population consistent with blast crisis Flow cytometry report given to family to discuss prognosis After discussion with family, patient is now DNR Thrombocytopenia worsened this AM, will transfuse additional unit of platelets Received decitabine therapy in the past, but was found to not be transplant for HCT Bronchoscopy found diffuse R-sided alveolar hemorrhage, may be 2/2 lovenox treatment for LUE DVT May also be related to patient's history of SLE and/or sickle cell disease, lower suspicion for hemorrhage related to AML given low WBC count Autoimmune serologies pending Guarded prognosis Palliative care following, all recs appreciated Hypokalemia Resolved, now closer to hyperkalemic range May stop K replacement in maintenance IVF, continue to monitor Nephrology following, all recs appreciated LUE DVT Likely 2/2 PICC line on top of hypercoaguable state from hematologic malignancy Lovenox held for concern of worsening thrombocytopenia Normocytic anemia 2/2 MDS which has now progressed to AML H/H stable, continue to monitor, transfuse additional units of PRBCs PRN Fever, tachycardia, tachypnea Tachycardia has improved but remains intermittently febrile, likely 2/2 blast crisis Continue abx, ventilator management per ID and ICU Tylenol PRN to control fever May continue atenolol, lopressor with holding parameters per cardiology recs Cardiology, ID following, all recs appreciated Thank you for this interesting consult, we will continue to follow. Case and plan reviewed and discussed with my attending Dr. John Roberson, DO IM Resident PGY-1
--- NOTE | 2018-08-16 08:22 | RAD ---
Date of service: 08/16/2018 HISTORY: follow up infiltrate COMPARISON: 08/15/2018 TECHNIQUE: 1 view obtained. FINDINGS: LUNGS: No change in extensive bilateral alveolar infiltrates PLEURA: No significant pleural effusion identified, no pneumothorax apparent. CARDIOVASCULAR: Aortic calcification Normal cardiac size. No pulmonary vascular congestion. OSSEOUS STRUCTURES: No significant abnormalities. VISUALIZED UPPER ABDOMEN: The nasogastric tube terminates at the level of the diaphragm.. Endotracheal tube in satisfactory position OTHER FINDINGS: None. IMPRESSION: No change in bilateral infiltrates. Suboptimal position of the nasogastric tube in the distal esophagus.
[2018-08-16 08:45] LABS: PLATELET COUNT MANUAL 17 K/mm3 (120-450)
[2018-08-16] MEDS: Mupirocin 2% Ointment 15 GM TUBE TOP SCH ×2 (10:28→19:14)
[2018-08-16 10:57] LABS: ARTERIAL BLOOD GAS HCO3 17.9 mmol/L (21-28); ARTERIAL BLOOD GAS HEMOGLOBIN 8.1 g/dL (11.7-17.4); ARTERIAL BLOOD GAS O2 CAPACITY 11.1 mL/dl (16-24); ARTERIAL BLOOD GAS O2 CONTENT 10.8 ML/dl (15-23); ARTERIAL BLOOD GAS O2 SAT 97.5 % (95-98); ARTERIAL BLOOD GAS PCO2 49 mm/Hg (35-45); ARTERIAL BLOOD GAS PH 7.17 (7.35-7.45); ARTERIAL BLOOD GAS TCO2 19.4 mmol.L (22-28)
[2018-08-16] MEDS: Non Formulary Medication (Vitamin B Complex [Super B-50 Complex] 1 CAP) PO SCH (11:01)
--- NOTE | 2018-08-16 11:44 | PN ---
DATE: 08/16/2018 PULMONARY PROGRESS NOTE REFERRING PHYSICIAN: Dr. August Lara. SUBJECTIVE: The patient remains sedated and intubated. Continued on Vasopressors. The patient was febrile last night, now on cooling blanket. No hemoptysis, hematemesis, hematuria, or diarrhea reported. OBJECTIVE: VITAL SIGNS: Blood pressure during visit was 114/62, pulse 90, and oxygen saturation 95%. HEENT: NG tube and ET tube present. Moist mucous membranes. RESPIRATORY: Few rhonchi bilaterally; decreased breath sound at bases. CARDIOVASCULAR: S1 and S2. ABDOMEN: Soft. No distention. EXTREMITIES: Bilateral pedal edema. Left upper extremity edema. NEUROLOGIC: Intubated and sedated. MEDICATIONS: Reviewed. DuoNeb 3 mL inhalation every 4 hours p.r.n., Norvasc 10 mg daily on hold, Pulmicort 0.5 mg inhalation twice a day, Klonopin 0.5 mg twice a day on hold, Benadryl 25 mg IV push every 8 hours p.r.n., doxycycline 100 mg every 12 hours, ergocalciferol 50,000 units weekly, fentanyl 1000 mcg in 100 mL at 7.5 mL per hour p.r.n., Motrin 400 mg every 6 hours p.r.n. on hold, Atrovent 0.5 mg inhalation three times a day, Xopenex 0.63 mg inhalation three times a day, Claritin 10 mg daily on hold, Cozaar 50 mg in the evening on hold, Lopressor 5 mg IV push every 6 hours p.r.n. for heart rate above 130, Bactroban 1 g topically twice a day, nicotine patch transdermal on hold, vitamin B complex one cap daily, Levophed 4 mg in 250 mL at 15 mL per hour p.r.n., Zofran 4 mg every 6 hours p.r.n., Protonix 40 mg IV push daily, Zosyn 3.375 g in 100 mL at 25 mL per hour every 8 hours, potassium chloride 20 mEq and sodium chloride 1000 10 mL at 100 mL per hour, propofol 1000 mg in 100 mL, [place] nasal spray four times a day, tramadol 50 mg three times a day p.r.n., and vancomycin 1 g IV piggyback twice a day. LABORATORY DATA: Reviewed. WBC 5.7, RBC 3.18, hemoglobin 9.1, hematocrit 27.9, and platelets 14. PCO2 of 58, pO2 of 85, HCO3 of 20.7, ABG pH 7.16, and FiO2 of 100. Sodium 153, potassium 4.8, chloride 122, carbon dioxide 23, anion gap 13, BUN 39, creatinine 1, GFR greater than 60, random glucose 165, lactic acid 1.4, calcium 8.9, phosphorus 6.1, magnesium 2.2, total bilirubin 4.4, AST 21, ALT 17, alkaline phosphatase 97, total protein 6.4, albumin 2.5, globulin 3.9, and albumin-globulin ration 0.7. Blood cultures preliminary, no growth after four days. Stool for C. diff negative. Sputum culture preliminary, no growth. Fungal culture preliminary, no fungal elements seen. Mycobacterial culture preliminary, no acid fast bacilli seen. Chest x-ray shows no change in bilateral infiltrates. IMPRESSION AND PLAN: Myelodysplasia, history of lung cancer requiring lobectomy in the past, thrombocytopenia, sickle cell disease, anemia, chronic lung disease, left upper extremity deep venous thrombosis, alveolar hemorrhage, pneumonia, possibly aspiration pneumonia, and respiratory failure, presently on ventilator. The patient is currently on tidal volume 300, FiO2 100, PEEP 5 with respiratory rate is at 26. We will increase PEEP to 8 and repeat ABG's in 2 hours. Continue broad-spectrum antibiotics. Monitor platelets. No anticoagulation at this time, understanding the risk versus benefits of anticoagulation in this patient. Continue inhaled bronchodilators, gastric prophylaxis, and sequential compression devices to bilateral lower extremities for deep venous thrombosis prophylaxis. The patient is currently being followed by multiple specialties. We will follow up ABG's, chest x-ray, CBC, and CMP in the morning. Critical care time spent more than 35 minutes. This patient was seen and examined with Dr. Maurer. Discussed assessment and plan as described above. This patient was seen and examined with Henry Marquez, nurse practitioner. Discussed assessment and plan as described above. Thank you for this consult. We will follow with you. Henry Marquez APN Solange Maurer MD JONAH
[2018-08-16] MEDS ORDERED: Sodium Bicarbonate 8.4% 150 MEQ in Dextrose 5% In Water 1,000 ML IV SCH (11:45)
[2018-08-16 11:48] LABS: BLOOD UREA NITROGEN 39 mg/dL (7-21); CALCIUM 8.7 mg/dL (8.4-10.5); GFR NON-AFRICAN AMERICAN 58
--- NOTE | 2018-08-16 13:57 | CP.PCM.PN ---
<Scar Bermeo - Last Filed: 08/16/18 13:53> Subjective - Date & Time of Evaluation Date of Evaluation: 08/16/18 Time of Evaluation: 07:20 - Subjective Subjective: Scar Bermeo D.O. PGY-3, Internal Medicine Resident, Infectious Disease Progress Note 53-year-old female with a past medical history of myelodysplastic syndrome status post chemotherapy, lung cancer status post lobectomy, right breast mastec leonard, chronic obstructive pulmonary disease, and endocarditis who presented for platelet transfusion yesterday at the infusion clinic and was found to be febrile with a fever of 101.2. Infectious disease consultation was requested for his fever. Patient was seen and examined in ICU. Intubated. Sedated. Objective - Vital Signs/Intake and Output Vital Signs (last 24 hours): Temp Pulse Resp BP Pulse Ox 98.6 F 88 30 H 101/54 L 94 L 08/16/18 12:00 08/16/18 13:15 08/16/18 08:07 08/16/18 13:00 08/16/18 13:15 Intake and Output: 08/16/18 08/16/18 06:59 18:59 Intake Total 810 Output Total 600 Balance 210 - Medications Medications: Current Medications Albuterol/Ipratropium (Duoneb 3 Mg/0.5 Mg (3 Ml) Ud) 3 ml IH [id number] PRN PRN Reason: Shortness of Breath Last Admin: 08/12/18 03:00 Dose: 3 ml Amlodipine Besylate (Norvasc) 10 mg PO DAILY [facility] Last Admin: 08/13/18 10:00 Dose: Not Given Budesonide (Pulmicort Respules) 0.5 mg IH BIDRESP [facility] Last Admin: 08/16/18 07:52 Dose: 0.5 mg Clonazepam (Klonopin) 0.5 mg PO BID [facility]; Protocol Last Admin: 08/13/18 12:42 Dose: Not Given Diphenhydramine HCl (Benadryl) 25 mg IVP Q8H PRN PRN Reason: Allergy symptoms Ergocalciferol (Drisdol 50,000 Intl Units Cap) 1 cap PO SUN [facility] Last Admin: 08/12/18 09:24 Dose: 1 cap Fentanyl Citrate (Fentanyl Citrate/Sodium Chloride 1 Mg/100 Ml) 1,000 mcg in 100 mls @ 7.5 mls/hr IV .[id number] PRN; Protocol PRN Reason: TITRATE PER MD ORDER Last Admin: 08/16/18 06:05 Dose: 75 mcg/hr, 7.5 mls/hr Propofol (Diprivan) 1,000 mg in 100 mls @ 1.591 mls/hr IV .Q24H PRN; Protocol PRN Reason: TITRATE PER MD ORDER Last Admin: 08/16/18 06:03 Dose: 30 mcg/kg/min, 9.545 mls/hr Doxycycline Hyclate 100 mg/ (Sodium Chloride) 100 mls @ 100 mls/hr IVPB Q12 [facility]; Protocol Stop: 08/20/18 13:31 Last Admin: 08/16/18 10:53 Dose: 100 mls/hr Piperacillin Sod/Tazobactam Sod (Zosyn 3.375 In Ns 100ml) 100 mls @ 25 mls/hr IVPB Q8 [facility]; Protocol Stop: 08/20/18 14:01 Last Admin: 08/16/18 06:01 Dose: 25 mls/hr Vancomycin HCl (Vancomycin 1gm) 1 gm in 250 mls @ 167 mls/hr IVPB 0330,1530 [facility]; Protocol Last Admin: 08/16/18 06:01 Dose: 167 mls/hr NOREPINEPHRINE BIT/0.9 % NACL (Levophed 4 Mg/ 250 Ml Ns Premixed) 4 mg in 250 mls @ 15 mls/hr IV .[id number] PRN; Protocol PRN Reason: TITRATE PER MD ORDER Last Admin: 08/16/18 06:02 Dose: 7 mcg/min, 26.25 mls/hr Potassium Chloride 20 meq/ (Sodium Chloride) 1,010 mls @ 100 mls/hr IV .Q10H6M [facility] Last Admin: 08/15/18 15:29 Dose: 100 mls/hr Ibuprofen (Motrin Tab) 400 mg PO Q6H PRN PRN Reason: Fever >100.4 F Ipratropium [place] (Atrovent) 0.5 mg IH TIDRESP [facility] Last Admin: 08/16/18 13:43 Dose: 0.5 mg Levalbuterol HCl (Xopenex) 0.63 mg IH TIDRESP [facility] Last Admin: 08/16/18 13:43 Dose: 0.63 mg Loratadine (Claritin) 10 mg PO DAILY [facility] Last Admin: 08/13/18 10:00 Dose: Not Given Losartan Potassium (Cozaar) 50 mg PO QPM [facility] Last Admin: 08/13/18 18:14 Dose: Not Given Metoprolol Tartrate (Lopressor) 5 mg IVP Q6H PRN PRN Reason: HR above 130's Last Admin: 08/14/18 20:38 Dose: 5 mg Mupirocin (Bactroban Ointment) 1 gm TOP BID [facility] Last Admin: 08/16/18 10:28 Dose: 1 unit Nicotine (Nicoderm Cq) 1 patch TD DAILY [facility] Last Admin: 08/12/18 09:26 Dose: Not Given Non-Formulary Medication (Vitamin B Complex [Super B-50 Complex]) 1 cap PO DAILY [facility] Last Admin: 08/16/18 11:01 Dose: Not Given Ondansetron HCl (Zofran Inj) 4 mg IVP Q6H PRN PRN Reason: Nausea/Vomiting Last Admin: 08/10/18 02:02 Dose: 4 mg Pantoprazole Sodium (Protonix Inj) 40 mg IVP DAILY [facility] Last Admin: 08/16/18 10:28 Dose: 40 mg Sodium Chloride ([place] Nasal [place]) 0 ml NS QID [facility] Last Admin: 08/15/18 21:20 Dose: Not Given - Labs Labs: 08/16/18 06:00 08/16/18 11:20 PT 23.1 SECONDS (9.4-12.5) H 08/14/18 17:00 INR 2.08 08/14/18 17:00 APTT 30.6 Seconds (26.9-38.3) 08/13/18 17:10 - Constitutional Appears: Chronically Ill, intubated - Head Exam Head Exam: ATRAUMATIC, NC - Eye Exam Eye Exam: EOMI, PERRL. absent: Scleral icterus - ENT Exam ENT Exam: Mucous Membranes Moist - Neck Exam Neck exam: Positive for: Normal Inspection. Negative for: Lymphadenopathy - Respiratory Exam Respiratory Exam: coarse breath sounds BL - Cardiovascular Exam Cardiovascular Exam: tachycardic, +S1, +S2. absent: Gallop, Rubs - GI/Abdominal Exam GI & Abdominal Exam: mildly tender throughout, soft - Extremities Exam Extremities exam: Negative for: calf tenderness, pedal edema - Neurological Exam Neurological exam: sedated - Skin Skin Exam: Dry, Warm Assessment and Plan - Assessment and Plan (Free Text) Assessment: 53-year-old female with a past medical history of myelodysplastic syndrome status post chemotherapy, lung cancer status post lobectomy, right breast mas tectomy, chronic obstructive pulmonary disease, and endocarditis who presented for platelet transfusion yesterday at the infusion clinic and was found to be febrile with a fever of 101.2. Infectious disease consultation was requested for his fever. Plan: New sepsis likely 2/2 HCAP Sepsis likely 2/2 pancolitis LUE DVT 2/2 PICC line DAH Immunocompromise state High-grade myelodysplastic syndrome with thrombocytopenia Lung cancer status post lobectomy Prognosis continues to be very guarded at this time MRSA screen negative will D/C vancomycin Will repeat BCX Continue broad coverage with doxy/zosyn day 4 [facility] consultation notes reviewed and appreciated We will follow with you Patient was seen and examined and case to be discussed with attending physician Thank you for the pleasure participating in the care of this interesting patient <Terrance Juan - Last Filed: 08/16/18 16:38> Objective - Vital Signs/Intake and Output Vital Signs (last 24 hours): Temp Pulse Resp BP Pulse Ox 98.6 F 88 30 H 101/54 L 94 L 08/16/18 12:00 08/16/18 13:15 08/16/18 08:07 08/16/18 13:00 08/16/18 13:15 Intake and Output: 08/16/18 08/16/18 06:59 18:59 Intake Total 810 Output Total 600 Balance 210 - Medications Medications: Current Medications Albuterol/Ipratropium (Duoneb 3 Mg/0.5 Mg (3 Ml) Ud) 3 ml IH [id number] PRN PRN Reason: Shortness of Breath Last Admin: 08/12/18 03:00 Dose: 3 ml Albuterol/Ipratropium (Duoneb 3 Mg/0.5 Mg (3 Ml) Ud) 3 ml IH [id number] [facility] Amlodipine Besylate (Norvasc) 10 mg PO DAILY [facility] Last Admin: 08/13/18 10:00 Dose: Not Given Budesonide (Pulmicort Respules) 0.5 mg IH BIDRESP [facility] Last Admin: 08/16/18 07:52 Dose: 0.5 mg Clonazepam (Klonopin) 0.5 mg PO BID [facility]; Protocol Last Admin: 08/13/18 12:42 Dose: Not Given Diphenhydramine HCl (Benadryl) 25 mg IVP Q8H PRN PRN Reason: Allergy symptoms Ergocalciferol (Drisdol 50,000 Intl Units Cap) 1 cap PO SUN [facility] Last Admin: 08/12/18 09:24 Dose: 1 cap Fentanyl Citrate (Fentanyl Citrate/Sodium Chloride 1 Mg/100 Ml) 1,000 mcg in 100 mls @ 7.5 mls/hr IV .[id number] PRN; Protocol PRN Reason: TITRATE PER MD ORDER Last Admin: 08/16/18 06:05 Dose: 75 mcg/hr, 7.5 mls/hr Propofol (Diprivan) 1,000 mg in 100 mls @ 1.591 mls/hr IV .Q24H PRN; Protocol PRN Reason: TITRATE PER MD ORDER Last Admin: 08/16/18 06:03 Dose: 30 mcg/kg/min, 9.545 mls/hr Doxycycline Hyclate 100 mg/ (Sodium Chloride) 100 mls @ 100 mls/hr IVPB Q12 [facility]; Protocol Stop: 08/20/18 13:31 Last Admin: 08/16/18 10:53 Dose: 100 mls/hr Piperacillin Sod/Tazobactam Sod (Zosyn 3.375 In Ns 100ml) 100 mls @ 25 mls/hr IVPB Q8 [facility]; Protocol Stop: 08/20/18 14:01 Last Admin: 08/16/18 14:27 Dose: 25 mls/hr NOREPINEPHRINE BIT/0.9 % NACL (Levophed 4 Mg/ 250 Ml Ns Premixed) 4 mg in 250 mls @ 15 mls/hr IV .[id number] PRN; Protocol PRN Reason: TITRATE PER MD ORDER Last Admin: 08/16/18 06:02 Dose: 7 mcg/min, 26.25 mls/hr Potassium Chloride 20 meq/ (Sodium Chloride) 1,010 mls @ 100 mls/hr IV .Q10H6M [facility] Last Admin: 08/15/18 15:29 Dose: 100 mls/hr Ibuprofen (Motrin Tab) 400 mg PO Q6H PRN PRN Reason: Fever >100.4 F Loratadine (Claritin) 10 mg PO DAILY [facility] Last Admin: 08/13/18 10:00 Dose: Not Given Losartan Potassium (Cozaar) 50 mg PO QPM [facility] Last Admin: 08/13/18 18:14 Dose: Not Given Metoprolol Tartrate (Lopressor) 5 mg IVP Q4H PRN PRN Reason: Heart rate Mupirocin (Bactroban Ointment) 1 gm TOP BID [facility] Last Admin: 08/16/18 10:28 Dose: 1 unit Nicotine (Nicoderm Cq) 1 patch TD DAILY [facility] Last Admin: 08/12/18 09:26 Dose: Not Given Non-Formulary Medication (Vitamin B Complex [Super B-50 Complex]) 1 cap PO DAILY [facility] Last Admin: 08/16/18 11:01 Dose: Not Given Ondansetron HCl (Zofran Inj) 4 mg IVP Q6H PRN PRN Reason: Nausea/Vomiting Last Admin: 08/10/18 02:02 Dose: 4 mg Pantoprazole Sodium (Protonix Inj) 40 mg IVP DAILY [facility] Last Admin: 08/16/18 10:28 Dose: 40 mg Sodium Chloride ([place] Nasal [place]) 0 ml NS QID [facility] Last Admin: 08/15/18 21:20 Dose: Not Given - Labs Labs: 08/16/18 06:00 08/16/18 11:20 PT 23.1 SECONDS (9.4-12.5) H 08/14/18 17:00 INR 2.08 08/14/18 17:00 APTT 30.6 Seconds (26.9-38.3) 08/13/18 17:10 Attending/Attestation - Attestation I have personally seen and examined this patient.: Yes I have fully participated in the care of the patient.: Yes I have reviewed all pertinent clinical information, including history, physical exam and plan: Yes
--- NOTE | 2018-08-16 15:04 | PN ---
DATE: 08/16/2018 SUBJECTIVE: The patient is seen lying in bed in the ICU. She is sedated. She remains on mechanical ventilation. She is not responsive. She remains on Levophed at 4 mcg per minute, fentanyl at 75 mcg per hour, propofol at 5 mcg/kg per minute. Her IV fluids were discontinued this morning because of elevated sodium of 153. Her potassium is now corrected, it is 4.8 today. PHYSICAL EXAMINATION: GENERAL: Middle-aged lady lying in bed in the ICU. VITAL SIGNS: Blood pressure 106/52, heart rate 89, respiratory rate 24 to 30, temperature 99.1, T-max is 101.3. HEENT: Normocephalic, atraumatic, positive pallor. NECK: Supple, no JVD. LUNGS: Bilateral equal air entry, bilateral equal expansion, occasional rhonchi. CARDIAC: S1 and S2, regular rate and rhythm, no murmur, no rub. ABDOMEN: Distended, soft, nontender, bowel sounds present. EXTREMITIES: 1+ pitting edema of the lower extremities. INTAKE AND OUTPUT: 3420/1100. LABORATORY DATA: WBC 5.7, hemoglobin 9.1, hematocrit 27.9, platelets 14, manual count 17. Sodium 153, potassium 4.4, chloride 123, CO2 of 22, BUN 39, creatinine 1, glucose 178, calcium 8.7, phosphorus 6.1 magnesium 2.2, total bili 4.4, albumin 2.5, globulin 3.9. Complements normal. Sputum culture no growth. C. diff negative. Blood culture no growth. Chest x-ray: No significant pleural effusion, no pulmonary vascular congestion, bilateral infiltrates. CURRENT MEDICATIONS: Atrovent, Bactroban, Benadryl, Claritin, Cozaar on hold, Diprivan 30 mcg/kg per minute, doxycycline 100 every 12 hours, fentanyl 75 mcg per hour, Klonopin on hold, Levophed 7 mcg per minute, Lopressor 5 mg every 6 hours p.r.n. for heart rate greater than 130, amlodipine 10 on hold, IV fluids discontinued earlier, Protonix 40, Pulmicort, vancomycin 1 g every 12 hours, Xopenex, Zofran, Zosyn. ASSESSMENT: 1. Severe hypernatremia, dehydration, partly iatrogenic. 2. Severe hypokalemia, resolved. 3. Pancytopenia. 4. Severe anemia. 5. Left upper extremity deep vein thrombosis. 6. Fever, tachycardia, sepsis. 7. History of breast cancer. 8. History of lung cancer. 9. Accelerated myelodysplastic syndrome. PLAN: 1. Discontinue IV fluids. 2. Free water via NG tube 250 mL every 4 hours. 3. Continue broad-spectrum empiric antibiotics as per ID recommendations. 4. Avoid nephrotoxins. 5. Monitor daily electrolytes. 6. Lovenox now on hold because of worsening thrombocytopenia. 7. Agree with platelet transfusion. 8. Overall prognosis is guarded/critical. Case discussed with Dr. Lema, case discussed with ICU nursing staff, case discussed with ID. >35 min spent in care coordination Tri Oerllana MD JONAH
[2018-08-16] MEDS ORDERED: Metoprolol 1 mg/ml Inj IVP SCH (16:15)
[2018-08-16] MEDS: Albumin Human 25% (12.5 gm/50 ml) IV SCH ×2 (19:15)
[2018-08-16] MEDS: Albuterol-Ipratrop 3 mg / 0.5 (3 ml) UD IH SCH (20:29)
--- NOTE | 2018-08-16 22:32 | PN ---
DATE: 08/16/2018 REASON FOR CONSULTATION: Cardiac evaluation, respiratory failure, sepsis, pneumonia, lung CA, status post intubated. SUBJECTIVE: The patient remains on vent, sedated. PHYSICAL EXAMINATION: As follows: VITAL SIGNS: Temperature afebrile, heart rate 88, blood pressure 101/54. HEENT: PERRLA. Extraocular muscles intact. NECK: Supple. No carotid bruits. No thyromegaly. CHEST: Clear to auscultation. HEART: S1 and S2, regular. ABDOMEN: Soft. EXTREMITIES: Clubbing and cyanosis negative. LABORATORY DATA: Blood workup as follows: WBC 5.3, hemoglobin 9, hematocrit 27.9, platelet count manual 17. Sodium 153, potassium 4.4, chloride 123, carbon dioxide 22, anion gap of 11, BUN 13, and creatinine 1. Telemetry shows normal sinus. IMPRESSION: A 53-year-old female with past medical history significant for leukemia, history of lung carcinoma, history of breast carcinoma, status post lumpectomy in 2003, status post lobectomy for lung cancer. Post chemotherapy, leukemia. Ejection fraction 40% to 45%. Admitted with respiratory failure, bilateral pneumonia, sepsis. Borderline troponin positive. Hypernatremia, severe protein calorie malnutrition, sepsis, tachycardia, multifactorial elevated troponin secondary to underlying sepsis and anemia and underlying medical condition. The patient has severe thrombocytopenia. RECOMMENDATION: Continue antibiotics as per ID. We will start half-normal saline at 70 mL an hour. The patient is already on 100 mL an hour. We will give two doses of IV albumin to increase the plasma oncotic pressure, increase the blood pressure. Continue broad-spectrum antibiotic. Continue vent management. The patient had an echo done that shows ejection fraction 40% to 45%. Right ventricular systolic function is normal. Relatively CV status is stable. Overall, the patient's condition is critical. Prognosis is extremely guarded. We will follow with you. Continue supportive care. Thank you Dr. Lara, for providing us the opportunity in taking care of the patient, Codi Pope. Give four doses of IV albumin. We will start free fluid also from NG if the patient can tolerate. We will put free fluid 200 mL an hour. Solange Langley MD [facility] # [id number]
[2018-08-17] MEDS: Albuterol-Ipratrop 3 mg / 0.5 (3 ml) UD IH SCH ×4 (02:16→20:00)
[2018-08-17] MEDS: Albumin Human 25% (12.5 gm/50 ml) IV SCH ×3 (06:30→17:36)
[2018-08-17] MEDS: Piperacillin/Tazobact 3.375 gm 100 ML IVPB SCH ×3 (06:30→21:25)
[2018-08-17 06:40] LABS: ARTERIAL BLOOD GAS HCO3 24.3 mmol/L (21-28); ARTERIAL BLOOD GAS HEMOGLOBIN 11.4 g/dL (11.7-17.4); ARTERIAL BLOOD GAS O2 CAPACITY 15.6 mL/dl (16-24); ARTERIAL BLOOD GAS O2 CONTENT 14.4 ML/dl (15-23); ARTERIAL BLOOD GAS O2 SAT 92.5 % (95-98); ARTERIAL BLOOD GAS PCO2 65 mm/Hg (35-45); ARTERIAL BLOOD GAS PH 7.18 (7.35-7.45); ARTERIAL BLOOD GAS TCO2 26.3 mmol.L (22-28)
--- NOTE | 2018-08-17 06:45 | CP.PCM.PN ---
<Stewart Arroyo - Last Filed: 08/17/18 11:08> Subjective - Date & Time of Evaluation Date of Evaluation: 08/17/18 Time of Evaluation: 07:05 - Subjective Subjective: Stewart Arroyo PGY2 GI Progress Note for Dr. Dela Cruz Patient was seen and examined at bedside in ICU. The patient remains intubated, on vent and on sedation. She is no longer requiring vasopressor BP support. The patient remains afebrile overnight. CXR reviewed, not improved significantly from prior days. The patient did have loose stools of liquid consistency per RN. Objective - Vital Signs/Intake and Output Vital Signs (last 24 hours): Temp Pulse Resp BP Pulse Ox 98.6 F 92 H 30 H 115/54 L 94 L 08/16/18 12:00 08/16/18 22:00 08/16/18 08:07 08/16/18 21:30 08/16/18 21:45 Intake and Output: 08/16/18 08/17/18 18:59 06:59 Intake Total 100 2100 Output Total 1000 Balance 100 1100 - Medications Medications: Current Medications Albumin Human (Albumin Human 25% (12.5 Gm/50 Ml)) 12.5 gm IV Q6H [facility] Stop: 08/17/18 23:59 Last Admin: 08/17/18 06:30 Dose: 12.5 gm Albuterol/Ipratropium (Duoneb 3 Mg/0.5 Mg (3 Ml) Ud) 3 ml IH [id number] PRN PRN Reason: Shortness of Breath Last Admin: 08/12/18 03:00 Dose: 3 ml Albuterol/Ipratropium (Duoneb 3 Mg/0.5 Mg (3 Ml) Ud) 3 ml IH [id number] [facility] Last Admin: 08/17/18 02:16 Dose: 3 ml Amlodipine Besylate (Norvasc) 10 mg PO DAILY [facility] Last Admin: 08/13/18 10:00 Dose: Not Given Budesonide (Pulmicort Respules) 0.5 mg IH BIDRESP [facility] Last Admin: 08/16/18 20:30 Dose: 0.5 mg Clonazepam (Klonopin) 0.5 mg PO BID [facility]; Protocol Last Admin: 08/13/18 12:42 Dose: Not Given Diphenhydramine HCl (Benadryl) 25 mg IVP Q8H PRN PRN Reason: Allergy symptoms Ergocalciferol (Drisdol 50,000 Intl Units Cap) 1 cap PO SUN [facility] Last Admin: 08/12/18 09:24 Dose: 1 cap Fentanyl Citrate (Fentanyl Citrate/Sodium Chloride 1 Mg/100 Ml) 1,000 mcg in 100 mls @ 7.5 mls/hr IV .[id number] PRN; Protocol PRN Reason: TITRATE PER MD ORDER Last Admin: 08/16/18 21:27 Dose: 75 mcg/hr, 7.5 mls/hr Propofol (Diprivan) 1,000 mg in 100 mls @ 1.591 mls/hr IV .Q24H PRN; Protocol PRN Reason: TITRATE PER MD ORDER Last Admin: 08/16/18 21:26 Dose: 30 mcg/kg/min, 9.545 mls/hr Doxycycline Hyclate 100 mg/ (Sodium Chloride) 100 mls @ 100 mls/hr IVPB Q12 [facility]; Protocol Stop: 08/20/18 13:31 Last Admin: 08/16/18 21:28 Dose: 100 mls/hr Piperacillin Sod/Tazobactam Sod (Zosyn 3.375 In Ns 100ml) 100 mls @ 25 mls/hr IVPB Q8 [facility]; Protocol Stop: 08/20/18 14:01 Last Admin: 08/17/18 06:30 Dose: 25 mls/hr NOREPINEPHRINE BIT/0.9 % NACL (Levophed 4 Mg/ 250 Ml Ns Premixed) 4 mg in 250 mls @ 15 mls/hr IV .[id number] PRN; Protocol PRN Reason: TITRATE PER MD ORDER Last Titration: 08/16/18 21:27 Dose: Infused Potassium Chloride 20 meq/ (Sodium Chloride) 1,010 mls @ 100 mls/hr IV .Q10H6M [facility] Last Admin: 08/15/18 15:29 Dose: 100 mls/hr Loratadine (Claritin) 10 mg PO DAILY [facility] Last Admin: 08/13/18 10:00 Dose: Not Given Losartan Potassium (Cozaar) 50 mg PO QPM [facility] Last Admin: 08/13/18 18:14 Dose: Not Given Metoprolol Tartrate (Lopressor) 5 mg IVP Q4H PRN PRN Reason: Heart rate Mupirocin (Bactroban Ointment) 1 gm TOP BID [facility] Last Admin: 08/16/18 19:14 Dose: 1 unit Nicotine (Nicoderm Cq) 1 patch TD DAILY [facility] Last Admin: 08/12/18 09:26 Dose: Not Given Non-Formulary Medication (Vitamin B Complex [Super B-50 Complex]) 1 cap PO ZENAIDA LY [facility] Last Admin: 08/16/18 11:01 Dose: Not Given Ondansetron HCl (Zofran Inj) 4 mg IVP Q6H PRN PRN Reason: Nausea/Vomiting Last Admin: 08/10/18 02:02 Dose: 4 mg Pantoprazole Sodium (Protonix Inj) 40 mg IVP DAILY [facility] Last Admin: 08/16/18 10:28 Dose: 40 mg Sodium Chloride ([place] Nasal [place]) 0 ml NS QID [facility] Last Admin: 08/16/18 21:28 Dose: Not Given - Labs Labs: 08/16/18 06:00 08/16/18 11:20 PT 23.1 SECONDS (9.4-12.5) H 08/14/18 17:00 INR 2.08 08/14/18 17:00 APTT 30.6 Seconds (26.9-38.3) 08/13/18 17:10 - Constitutional Appears: Cachectic, Chronically Ill - Head Exam Head Exam: ATRAUMATIC, NORMAL INSPECTION - Eye Exam Eye Exam: EOMI, PERRL - ENT Exam ENT Exam: Mucous Membranes Moist Additional comments: ETT/Dobhoff in place - Neck Exam Neck Exam: Full ROM, Normal Inspection - Respiratory Exam Respiratory Exam: Rhonchi, Decreased breath sounds. absent: Respiratory Distress - Cardiovascular Exam Cardiovascular Exam: Tachycardia, +S1, +S2 - GI/Abdominal Exam GI & Abdominal Exam: Soft, Normal Bowel Sounds. absent: Distended - Extremities Exam Extremities Exam: Full ROM, Normal Inspection - Neurological Exam Neurological Exam: Alert, Awake - Skin Skin Exam: Normal Color, Warm Assessment and Plan - Assessment and Plan (Free Text) Assessment: 53 year old female with a PMH of MDS (high grade, s/p chemotherapy), immunosuppression, lung cancer (s/p lobectomy, 2017), breast cancer s/p R breast mastectomy (2004), COPD, and endocarditis who is admitted for fevers. CT abd showed pancolitis, cdiff was negative for toxin x2. V/Q scan showed low probability for PE. Appears patient is in blast crisis and her thrombocytopenia has complicated course. Due to blood-tinged sputum and ensuing respiratory distress, patient was transferred to ICU, intubated and underwent BAL. She remains in ICU with sedation and on vent at this time. Conjugated hyperbilirubinema now with the addition of elevated alk phos is suggestive of sepsis cholestasis vs drug-induced hepatotoxicty; scans reviewed showing no obstructive biliary etiology. Plan: - cont ICU management - Abx per ID - c.diff is negative - NPO - PPI for GI ppx in ICU pt - monitor H/H; transfusing per Heme/Onc - Palliative care is following the case; patient now DNR - no endoscopic intervention required at this time - further recs per Dr. Dela Cruz Case was reviewed and discussed with Dr. Dela Cruz <Efrem Dela Cruz V - Last Filed: 08/17/18 20:58> Objective - Vital Signs/Intake and Output Vital Signs (last 24 hours): Temp Pulse Resp BP Pulse Ox 98.6 F 127 H 34 H 122/58 L 89 L 08/16/18 12:00 08/17/18 18:30 08/17/18 07:39 08/17/18 18:00 08/17/18 18:30 Intake and Output: 08/17/18 08/18/18 18:59 06:59 Intake Total 300 100 Balance 300 100 - Medications Medications: Current Medications Albumin Human (Albumin Human 25% (12.5 Gm/50 Ml)) 12.5 gm IV Q6H [facility] Stop: 08/17/18 23:59 Last Admin: 08/17/18 17:36 Dose: 12.5 gm Albuterol/Ipratropium (Duoneb 3 Mg/0.5 Mg (3 Ml) Ud) 3 ml IH [id number] PRN PRN Reason: Shortness of Breath Last Admin: 08/12/18 03:00 Dose: 3 ml Albuterol/Ipratropium (Duoneb 3 Mg/0.5 Mg (3 Ml) Ud) 3 ml IH [id number] [facility] Last Admin: 08/17/18 20:00 Dose: 3 ml Amlodipine Besylate (Norvasc) 10 mg PO DAILY [facility] Last Admin: 08/13/18 10:00 Dose: Not Given Atovaquone (Mepron) 750 mg PO BID [facility]; Protocol Last Admin: 08/17/18 17:36 Dose: 750 mg Budesonide (Pulmicort Respules) 0.5 mg IH BIDRESP [facility] Last Admin: 08/17/18 20:00 Dose: 0.5 mg Clonazepam (Klonopin) 0.5 mg PO BID [facility]; Protocol Last Admin: 08/13/18 12:42 Dose: Not Given Diphenhydramine HCl (Benadryl) 25 mg IVP Q8H PRN PRN Reason: Allergy symptoms Ergocalciferol (Drisdol 50,000 Intl Units Cap) 1 cap PO SUN [facility] Last Admin: 08/12/18 09:24 Dose: 1 cap Hydrocortisone Sodium Succinate (Solu-Cortef) 100 mg IVP Q8 [facility] Last Admin: 08/17/18 14:25 Dose: 100 mg Propofol (Diprivan) 1,000 mg in 100 mls @ 1.591 mls/hr IV .Q24H PRN; Protocol PRN Reason: TITRATE PER MD ORDER Last Admin: 08/17/18 19:47 Dose: 50 mcg/kg/min, 15.908 mls/hr Doxycycline Hyclate 100 mg/ (Sodium Chloride) 100 mls @ 100 mls/hr IVPB Q12 S ; Protocol Stop: 08/20/18 13:31 Last Admin: 08/17/18 09:38 Dose: 100 mls/hr Piperacillin Sod/Tazobactam Sod (Zosyn 3.375 In Ns 100ml) 100 mls @ 25 mls/hr IVPB Q8 [facility]; Protocol Stop: 08/20/18 14:01 Last Admin: 08/17/18 14:26 Dose: 25 mls/hr NOREPINEPHRINE BIT/0.9 % NACL (Levophed 4 Mg/ 250 Ml Ns Premixed) 4 mg in 250 mls @ 15 mls/hr IV .[id number] PRN; Protocol PRN Reason: TITRATE PER MD ORDER Last Titration: 08/16/18 21:27 Dose: Infused Potassium Chloride 20 meq/ (Sodium Chloride) 1,010 mls @ 100 mls/hr IV .Q10H6M [facility] Last Admin: 08/15/18 15:29 Dose: 100 mls/hr Dextrose (Dextrose 5% In Water 1000 Ml) 1,000 mls @ 50 mls/hr IV .Q20H [facility] Last Admin: 08/17/18 09:35 Dose: 50 mls/hr Fentanyl Citrate (Fentanyl Citrate/Sodium Chloride 1 Mg/100 Ml) 1,000 mcg in 100 mls @ 8 mls/hr IV .[id number] PRN; Protocol PRN Reason: TITRATE PER MD ORDER Last Admin: 08/17/18 13:06 Dose: 80 mcg/hr, 8 mls/hr Loratadine (Claritin) 10 mg PO DAILY [facility] Last Admin: 08/13/18 10:00 Dose: Not Given Losartan Potassium (Cozaar) 50 mg PO QPM [facility] Last Admin: 08/13/18 18:14 Dose: Not Given Metoprolol Tartrate (Lopressor) 5 mg IVP Q4H PRN PRN Reason: Heart rate Last Admin: 08/17/18 12:59 Dose: 5 mg Metoprolol Tartrate (Lopressor) 25 mg PO BID [facility] Last Admin: 08/17/18 17:38 Dose: 25 mg Mupirocin (Bactroban Ointment) 1 gm TOP BID [facility] Last Admin: 08/17/18 17:37 Dose: 1 unit Nicotine (Nicoderm Cq) 1 patch TD DAILY [facility] Last Admin: 08/12/18 09:26 Dose: Not Given Non-Formulary Medication (Vitamin B Complex [Super B-50 Complex]) 1 cap PO DAILY [facility] Last Admin: 08/17/18 17:39 Dose: Not Given Ondansetron HCl (Zofran Inj) 4 mg IVP Q6H PRN PRN Reason: Nausea/Vomiting Last Admin: 08/10/18 02:02 Dose: 4 mg Pantoprazole Sodium (Protonix Inj) 40 mg IVP DAILY [facility] Last Admin: 08/17/18 09:33 Dose: 40 mg Sodium Chloride ([place] Nasal [place]) 0 ml NS QID [facility] Last Admin: 08/17/18 17:39 Dose: Not Given - Labs Labs: 08/17/18 06:40 08/17/18 15:50 PT 23.1 SECONDS (9.4-12.5) H 08/14/18 17:00 INR 2.08 08/14/18 17:00 APTT 30.6 Seconds (26.9-38.3) 08/13/18 17:10 Attending/Attestation - Attestation I have personally seen and examined this patient.: Yes I have fully participated in the care of the patient.: Yes I have reviewed all pertinent clinical information, including history, physical exam and plan: Yes Notes (Text): This is an addendum to the GI progress report dictated by the medical professionals. Patient was seen and evaluated along with the resident here earlier today. Discussed with ICU staff. Patient remains intubated. LFTs showed a mainly total bilirubin mild elevation compared to yesterday. The pattern of the LFTs more towards to multifactorial etiology sepsis induced to hepatic dysfunction should be considered possible etiology in addition to Hepatic congestion ,DILI, and possibly congestion could contribute. Patient is planned to be started on Mepron. Needs close monitoring of LFT. Follow-up INR. Sepsis continue antibiotics as per ID pneumonia CT also showed a pancolitis stool for C. difficile negative before. Patient has advanced myelodysplastic syndrome with the multiple comorbidities. Overall prognosis of the patient is guarded. Palliative care note reviewed 08/17/18 20:50
[2018-08-17 07:14] LABS: BASO # 0.01 K/mm3 (0.0-2.0); BASO % 0.2 % (0.0-3.0); HEMOGLOBIN 8.3 g/dL (12.0-16.0); LYMPH # 2.5 (1.2-3.4); LYMPH % 52.5 % (22.0-35.0); MEAN CELL VOLUME 88.6 fl (80.0-105.0); MEAN CORPUSCULAR HEMOGLOBIN 28.6 pg (25.0-35.0); MEAN CORPUSCULAR HGB CONC 32.3 g/dl (31.0-37.0); MEAN PLATELET VOLUME 9.4 fl (7.0-11.0); MONO # 1.6 (0.1-0.6); MONO % 32.9 % (1.0-6.0); RED CELL DISTRIBUTION WIDTH 18.7 % (11.5-14.5); WHITE BLOOD COUNT 4.8 10^3/uL (4.5-11.0)
[2018-08-17 07:27] LABS: ALB/GLOB RATIO 0.8 (1.1-1.8); ALBUMIN 3.1 g/dL (3.0-4.8); ALT/SGPT 27 U/L (7-56); AST/SGOT 34 U/L (14-36); BLOOD UREA NITROGEN 40 mg/dL (7-21); CALCIUM 9.3 mg/dL (8.4-10.5); GFR NON-AFRICAN AMERICAN > 60
[2018-08-17 07:29] LABS: PLATELET COUNT 21 10^3/uL (120.0-450.0)
[2018-08-17 07:30] LABS: CARDIOLIPIN AB (IGA) <11 APL (<=11); CARDIOLIPIN AB (IGG) <14 GPL (<=14)
[2018-08-17] MEDS: Budesonide 0.5 mg/2 ml Inhal Susp UD IH SCH ×2 (07:32→20:00)
--- NOTE | 2018-08-17 07:44 | CP.PCM.PN ---
Subjective - Date & Time of Evaluation Date of Evaluation: 08/17/18 Time of Evaluation: 07:42 - Subjective Subjective: Christopher Roberson DO, PGY-1 Hematology/Oncology Progress Note for Dr. Lopez Patient was seen and examined at bedside this AM. She remains intubated, sedated on propofol and fentanyl drips. She had been requiring pressor support but is off pressors this AM. She has been tolerating tube feeds well with regular suctioning. Objective - Vital Signs/Intake and Output Vital Signs (last 24 hours): Temp Pulse Resp BP Pulse Ox 98.6 F 118 H 34 H 144/61 100 08/16/18 12:00 08/17/18 06:59 08/17/18 07:39 08/17/18 07:00 08/17/18 07:39 Intake and Output: 08/17/18 08/17/18 06:59 18:59 Intake Total 2100 Output Total 1000 Balance 1100 - Medications Medications: Current Medications Albumin Human (Albumin Human 25% (12.5 Gm/50 Ml)) 12.5 gm IV Q6H [facility] Stop: 08/17/18 23:59 Last Admin: 08/17/18 06:30 Dose: 12.5 gm Albuterol/Ipratropium (Duoneb 3 Mg/0.5 Mg (3 Ml) Ud) 3 ml IH [id number] PRN PRN Reason: Shortness of Breath Last Admin: 08/12/18 03:00 Dose: 3 ml Albuterol/Ipratropium (Duoneb 3 Mg/0.5 Mg (3 Ml) Ud) 3 ml IH [id number] [facility] Last Admin: 08/17/18 07:32 Dose: 3 ml Amlodipine Besylate (Norvasc) 10 mg PO DAILY [facility] Last Admin: 08/13/18 10:00 Dose: Not Given Budesonide (Pulmicort Respules) 0.5 mg IH BIDRESP [facility] Last Admin: 08/17/18 07:32 Dose: 0.5 mg Clonazepam (Klonopin) 0.5 mg PO BID [facility]; Protocol Last Admin: 08/13/18 12:42 Dose: Not Given Diphenhydramine HCl (Benadryl) 25 mg IVP Q8H PRN PRN Reason: Allergy symptoms Ergocalciferol (Drisdol 50,000 Intl Units Cap) 1 cap PO SUN [facility] Last Admin: 08/12/18 09:24 Dose: 1 cap Fentanyl Citrate (Fentanyl Citrate/Sodium Chloride 1 Mg/100 Ml) 1,000 mcg in 100 mls @ 7.5 mls/hr IV .[id number] PRN; Protocol PRN Reason: TITRATE PER MD ORDER Last Admin: 08/16/18 21:27 Dose: 75 mcg/hr, 7.5 mls/hr Propofol (Diprivan) 1,000 mg in 100 mls @ 1.591 mls/hr IV .Q24H PRN; Protocol PRN Reason: TITRATE PER MD ORDER Last Admin: 08/16/18 21:26 Dose: 30 mcg/kg/min, 9.545 mls/hr Doxycycline Hyclate 100 mg/ (Sodium Chloride) 100 mls @ 100 mls/hr IVPB Q12 [facility]; Protocol Stop: 08/20/18 13:31 Last Admin: 08/16/18 21:28 Dose: 100 mls/hr Piperacillin Sod/Tazobactam Sod (Zosyn 3.375 In Ns 100ml) 100 mls @ 25 mls/hr IVPB Q8 [facility]; Protocol Stop: 08/20/18 14:01 Last Admin: 08/17/18 06:30 Dose: 25 mls/hr NOREPINEPHRINE BIT/0.9 % NACL (Levophed 4 Mg/ 250 Ml Ns Premixed) 4 mg in 250 mls @ 15 mls/hr IV .[id number] PRN; Protocol PRN Reason: TITRATE PER MD ORDER Last Titration: 08/16/18 21:27 Dose: Infused Potassium Chloride 20 meq/ (Sodium Chloride) 1,010 mls @ 100 mls/hr IV .Q10H6M [facility] Last Admin: 08/15/18 15:29 Dose: 100 mls/hr Loratadine (Claritin) 10 mg PO DAILY [facility] Last Admin: 08/13/18 10:00 Dose: Not Given Losartan Potassium (Cozaar) 50 mg PO QPM [facility] Last Admin: 08/13/18 18:14 Dose: Not Given Metoprolol Tartrate (Lopressor) 5 mg IVP Q4H PRN PRN Reason: Heart rate Mupirocin (Bactroban Ointment) 1 gm TOP BID [facility] Last Admin: 08/16/18 19:14 Dose: 1 unit Nicotine (Nicoderm Cq) 1 patch TD DAILY [facility] Last Admin: 08/12/18 09:26 Dose: Not Given Non-Formulary Medication (Vitamin B Complex [Super B-50 Complex]) 1 cap PO DAILY [facility] Last Admin: 08/16/18 11:01 Dose: Not Given Ondansetron HCl (Zofran Inj) 4 mg IVP Q6H PRN PRN Reason: Nausea/Vomiting Last Admin: 08/10/18 02:02 Dose: 4 mg Pantoprazole Sodium (Protonix Inj) 40 mg IVP DAILY [facility] Last Admin: 08/16/18 10:28 Dose: 40 mg Sodium Chloride ([place] Nasal [place]) 0 ml NS QID [facility] Last Admin: 08/16/18 21:28 Dose: Not Given - Labs Labs: 08/17/18 06:40 08/17/18 06:40 PT 23.1 SECONDS (9.4-12.5) H 08/14/18 17:00 INR 2.08 08/14/18 17:00 APTT 30.6 Seconds (26.9-38.3) 08/13/18 17:10 - Head Exam Head Exam: ATRAUMATIC, NORMOCEPHALIC Additional comments: intubated, sedated - Eye Exam Eye Exam: EOMI, PERRL - ENT Exam ENT Exam: Mucous Membranes Moist - Neck Exam Neck Exam: absent: Lymphadenopathy, Thyromegaly - Respiratory Exam Respiratory Exam: Rhonchi (coarse breath sounds b/l improving). absent: Rales, Wheezes Additional comments: on ventilator, RR increased to 35, breath sounds auscultated b/l - Cardiovascular Exam Cardiovascular Exam: REGULAR RHYTHM, RRR, +S1, +S2. absent: Gallop, Rubs, Murmur - GI/Abdominal Exam GI & Abdominal Exam: Soft, Normal Bowel Sounds. absent: Distended - Extremities Exam Extremities Exam: absent: Pedal Edema - Neurological Exam Additional comments: intubated, sedated - Skin Skin Exam: Dry, Warm Assessment and Plan - Assessment and Plan (Free Text) Assessment: 53 yo F with PMH of accelerated MDS (previously on cyclical therapy with cytarabine (and more recently with decitabine, currently both on hold secondary to previous hospital admission for PNA and acute drops in blood counts), immunosuppression, lung cancer (s/p lobectomy), R breast mastectomy, COPD, and endocarditis presented to infusion clinic prior to admission for repeat platelet transfusion. She appeared acutely ill at that time with Tmax of 101.2 and tachycardic. She was subsequently sent to ED for evaluation, was admitted, and started on broad spectrum abx given immunosuppresion history. A few days into hospital stay, patient became increasingly tachypneic and hypoxemic, prompting urgent transfer to MICU. She was subsequently sedated, intubated, and bronchoscopy was completed. Bronchoscopy showed R sided alveolar hemorrhage. 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 Flow cytometry results completed on admission show high blast population consistent with blast crisis Flow cytometry report given to family and prognosis discussed on > 2 occasions Patient remains DNR per family request Thrombocytopenia improved s/p transfusion of 1 u platelets yesterday Albumin ordered per cardiology recs Was evaluated for accelerated MDS at [facility] in the past, was deemed not eligible for bone marrow transplant Was maintained on cytarabine/decitabine but was not able to continue given multiple hospitalizations Bronchoscopy completed after transfer to MICU found diffuse R-sided alveolar hemorrhage, may have been the result of lovenox treatment for LUE DVT May also be related to patient's history of SLE and/or sickle cell disease, lower suspicion for hemorrhage related to AML given low WBC count TRINITY, cardiolipin, MPO ab's negative, other autoimmune serologies pending Unfortunately, prognosis remains guarded Palliative care following, all recs appreciated LUE DVT Likely 2/2 PICC line on top of hypercoaguable state from hematologic malignancy Continue to hold lovenox for concern of thrombocytopenia Normocytic anemia 2/2 MDS which has now progressed to AML Hgb remains > 8, transfuse if worsening May give albumin per cardiology recs Fever, tachycardia, tachypnea Suspect persistent fevers are related to blast crisis from AML Continue tylenol PRN fever, cooling blankets, etc On day 5 of doxycycline, zosyn, completed 4 days of vanc Further abx recs per ID Continue to hold lopressor, cozaar, norvasc to maintain MAP > 65 MAP has been improving without pressor support Cardiology, ID following, all recs appreciated Thank you for this interesting consult, we will continue to follow. Case and plan reviewed and discussed with my attending Dr. John Roberson, IM Resident PGY-1
[2018-08-17 08:56] LABS: PLATELET COUNT MANUAL 23 K/mm3 (120-450)
[2018-08-17 09:00] LABS: ARTERIAL BLOOD GAS HCO3 23.8 mmol/L (21-28); ARTERIAL BLOOD GAS HEMOGLOBIN 9.9 g/dL (11.7-17.4); ARTERIAL BLOOD GAS O2 CAPACITY 13.5 mL/dl (16-24); ARTERIAL BLOOD GAS O2 CONTENT 13.4 ML/dl (15-23); ARTERIAL BLOOD GAS O2 SAT 98.9 % (95-98); ARTERIAL BLOOD GAS PCO2 53 mm/Hg (35-45); ARTERIAL BLOOD GAS PH 7.26 (7.35-7.45); ARTERIAL BLOOD GAS TCO2 25.4 mmol.L (22-28)
[2018-08-17 09:09] LABS: ATYPICAL LYMPHOCYTE 3 % (0.0-0.0); EOSINOPHIL 20 % (0.0-3.0); LYMPHOCYTE 28 % (22.0-35.0); MONOCYTE 37 % (1.0-6.0); NEUTROPHIL 12 % (50.0-70.0); NUCLEATED RED BLOOD CELL 3 %
--- NOTE | 2018-08-17 09:32 | RAD ---
Date of service: 08/17/2018 HISTORY: NGT placement COMPARISON: No prior. TECHNIQUE: 1 view obtained. FINDINGS: LUNGS: Diffuse alveolar infiltrate unchanged. Endotracheal and nasogastric tube in satisfactory position PLEURA: No significant pleural effusion identified, no pneumothorax apparent. CARDIOVASCULAR: No aortic atherosclerotic calcification present. Mild cardiomegaly no pulmonary vascular congestion. OSSEOUS STRUCTURES: No significant abnormalities. VISUALIZED UPPER ABDOMEN: Normal. OTHER FINDINGS: None. IMPRESSION: Diffuse alveolar infiltrate unchanged. Endotracheal and nasogastric tube in satisfactory position
[2018-08-17] MEDS: Propofol 10 mg/ml 1,000 MG/100 ML VIAL IV PRN ×3 (09:35→19:47)
--- NOTE | 2018-08-17 09:35 | RAD ---
Date of service: 08/17/2018 HISTORY: follow up infiltrate COMPARISON: 08/16/2018 TECHNIQUE: 1 view obtained. FINDINGS: LUNGS: No significant change in diffuse alveolar infiltrate. Endotracheal tube and nasogastric tube in satisfactory position PLEURA: No significant pleural effusion identified, no pneumothorax apparent. CARDIOVASCULAR: Aortic calcification Normal cardiac size. No pulmonary vascular congestion. OSSEOUS STRUCTURES: No significant abnormalities. VISUALIZED UPPER ABDOMEN: Normal. OTHER FINDINGS: None. IMPRESSION: No significant change in diffuse alveolar infiltrate. Endotracheal tube and nasogastric tube in satisfactory position
--- NOTE | 2018-08-17 09:43 | CP.CCUPN ---
<Rolando Tran - Last Filed: 08/17/18 12:48> CCU Subjective - Physician Review Events Since Last Encounter (Free Text): 08/17/18 09:41 no acute events overnight Subjective (Free Text): 08/14/18 09:06 Pt seen and examined this morning in the ICU, pt intubated and sedated, NAD 08/15/18 07:14 Pt seen and examined, intubated, sedated, on pressers, unable to communicated during exam 08/16/18 06:47 Pt seen and examined, intubated, sedated, on levophed 08/17/18 09:43 Seen and examined, [facility] CCU Objective - Vital Signs / Intake & Output Vital Signs (Last 4 hours): Vital Signs Pulse Resp BP Pulse Ox 08/17/18 07:39 34 H 100 08/17/18 07:00 144/61 08/17/18 06:59 118 H 99 08/17/18 06:45 119 H 89 L 08/17/18 06:30 117 H 156/71 H 89 L 08/17/18 06:15 117 H 91 L 08/17/18 06:00 150/70 08/17/18 05:59 116 H 90 L 08/17/18 05:45 115 H 93 L Intake and Output (Last 8hrs): Intake & Output 08/16/18 08/17/18 08/17/18 22:59 06:59 14:59 Intake Total 2200 Output Total 1000 Balance 1200 Intake: IV 1200 Right Femoral 750 Tube Feeding 500 Other 500 Output: Urine 1000 2-way Urethral 1000 Other: # Bowel Movements 1 - Physical Exam Head: Positive for: Atraumatic, Normocephalic Pupils: Positive for: PERRL Extroacular Muscles: Positive for: EOMI Conjunctiva: Positive for: Normal Mouth: Positive for: Moist Mucous Membranes Neck: Positive for: Normal Range of Motion Respiratory/Chest: Positive for: Clear to Auscultation, Good Air Exchange, Other (intubated ). Negative for: Respiratory Distress, Accessory Muscle Use Cardiovascular: Positive for: Normal S1, S2, Tachycardic. Negative for: Murmurs Abdomen: Negative for: Peritoneal Signs Back: Positive for: Normal Inspection Upper Extremity: Positive for: Normal Inspection. Negative for: Cyanosis, Edema Lower Extremity: Positive for: Normal Inspection, Edema Neurological: Positive for: CN II-XII Intact, Speech Normal Skin: Positive for: Warm, Dry, Normal Color. Negative for: Rashes Psychiatric: Positive for: Other (sedated) - Medications Active Medications: Active Medications Generic Name Dose Route Start Last Admin Trade Name Freq PRN Reason Stop Dose Admin Albumin Human 12.5 gm 08/16/18 17:45 08/17/18 06:30 Albumin Human 25% (12.5 Gm/50 Ml) IV 08/17/18 23:59 12.5 gm Q6H KAYLEIGH Administration Albuterol/Ipratropium 3 ml 08/08/18 14:07 08/12/18 03:00 Duoneb 3 Mg/0.5 Mg (3 Ml) Ud IH 3 ml [id number] PRN Administration Shortness of Breath Albuterol/Ipratropium 3 ml 08/16/18 20:00 08/17/18 07:32 Duoneb 3 Mg/0.5 Mg (3 Ml) Ud IH 3 ml [id number] KAYLEIGH Administration Amlodipine Besylate 10 mg 08/08/18 10:00 08/13/18 10:00 Norvasc PO Not Given DAILY KAYLEIGH Budesonide 0.5 mg 08/07/18 20:00 08/17/18 07:32 Pulmicort Respules IH 0.5 mg BIDRESP KAYLEIGH Administration Clonazepam 0.5 mg 08/07/18 18:00 08/13/18 12:42 Klonopin PO Not Given BID KAYLEIGH Protocol Diphenhydramine HCl 25 mg 08/12/18 13:50 Benadryl IVP Q8H PRN Allergy symptoms Ergocalciferol 1 cap 08/12/18 10:00 08/12/18 09:24 Drisdol 50,000 Intl Units Cap PO 1 cap SUN KAYLEIGH Administration Hydrocortisone Sodium Succinate 100 mg 08/17/18 14:00 Solu-Cortef IVP Q8 KAYLEIGH Fentanyl Citrate 1,000 mcg in 100 mls @ 7.5 mls/hr 08/13/18 11:35 08/16/18 21:27 Fentanyl Citrate/Sodium Chloride 1 Mg/100 Ml IV 75 mcg/hr .[id number] PRN 7.5 mls/hr TITRATE PER MD ORDER Administration Protocol 75 MCG/HR Propofol 1,000 mg in 100 mls @ 1.591 mls/hr 08/13/18 12:48 08/16/18 21:26 Diprivan IV 30 mcg/kg/min .Q24H PRN 9.545 mls/hr TITRATE PER MD ORDER Administration Protocol 5 MCG/KG/MIN Doxycycline Hyclate 100 mg/ 100 mls @ 100 mls/hr 08/13/18 13:30 08/16/18 21:28 Sodium Chloride IVPB 08/20/18 13:31 100 mls/hr Q12 KAYLEIGH Administration Protocol Piperacillin Sod/Tazobactam Sod 100 mls @ 25 mls/hr 08/13/18 14:00 08/17/18 06:30 Zosyn 3.375 In Ns 100ml IVPB 08/20/18 14:01 25 mls/hr Q8 KAYLEIGH Administration Protocol NOREPINEPHRINE BIT/0.9 % NACL 4 mg in 250 mls @ 15 mls/hr 08/14/18 11:47 08/16/18 21:27 Levophed 4 Mg/ 250 Ml Ns Premixed IV Infused .[id number] PRN Titration TITRATE PER MD ORDER Protocol 4 MCG/MIN Potassium Chloride 20 meq/ 1,010 mls @ 100 mls/hr 08/15/18 14:33 08/15/18 15:29 Sodium Chloride IV 100 mls/hr .[id number] KAYLEIGH Administration Dextrose 1,000 mls @ 50 mls/hr 08/17/18 08:45 Dextrose 5% In Water 1000 Ml IV .Q20H KAYLEIGH Loratadine 10 mg 08/08/18 10:00 08/13/18 10:00 Claritin PO Not Given DAILY KAYLEIGH Losartan Potassium 50 mg 08/07/18 18:00 08/13/18 18:14 Cozaar PO Not Given QPM KAYLEIGH Metoprolol Tartrate 5 mg 08/16/18 16:29 Lopressor IVP Q4H PRN Heart rate Metoprolol Tartrate 25 mg 08/17/18 10:00 Lopressor PO BID KAYLEIGH Mupirocin 1 gm 08/13/18 20:30 08/16/18 19:14 Bactroban Ointment TOP 1 unit BID KAYLEIGH Administration Nicotine 1 patch 08/07/18 16:45 08/12/18 09:26 Nicoderm Cq TD Not Given DAILY KAYLEIGH Non-Formulary Medication 1 cap 08/08/18 10:00 08/16/18 11:01 Vitamin B Complex [Super B-50 Complex] PO Not Given DAILY KAYLEIGH Ondansetron HCl 4 mg 08/08/18 13:17 08/10/18 02:02 Zofran Inj IVP 4 mg Q6H PRN Administration Nausea/Vomiting Pantoprazole Sodium 40 mg 08/13/18 10:00 08/16/18 10:28 Protonix Inj IVP 40 mg DAILY KAYLEIGH Administration Sodium Chloride 0 ml 08/07/18 18:00 08/16/18 21:28 [place] Nasal [place] NS Not Given QID AKYLEIGH - Patient Studies Lab Studies: Microbiology Studies 08/11/18 20:45 Blood Culture - Final Blood NO GROWTH AFTER 5 DAYS Gram Stain - Final TEST NOT PERFORMED 08/11/18 20:25 Blood Culture - Final Blood NO GROWTH AFTER 5 DAYS Gram Stain - Final TEST NOT PERFORMED 08/13/18 17:00 Gram Stain - Final Sputum Sputum Culture - Final No growth. Lab Studies 08/17/18 08/17/18 08/17/18 Range/Units 08:45 06:40 06:40 WBC 4.8 (4.5-11.0) 10^3/uL RBC 2.90 L (3.5-6.1) 10^6/uL Hgb 8.3 L (12.0-16.0) g/dL Hct 25.7 L (36.0-48.0) % MCV 88.6 (80.0-105.0) fl MCH 28.6 (25.0-35.0) pg MCHC 32.3 (31.0-37.0) g/dl RDW 18.7 H (11.5-14.5) % Plt Count 21 L* (120.0-450.0) 10^3/uL Manual Plt Count 23 L* (120-450) K/mm3 MPV 9.4 (7.0-11.0) fl Neut % (Auto) 14.4 L (50.0-68.0) % Lymph % (Auto) 52.5 H (22.0-35.0) % [place] % (Auto) 32.9 H (1.0-6.0) % Eos % (Auto) 0.0 L (1.5-5.0) % Baso % (Auto) 0.2 (0.0-3.0) % Lymph # (Auto) 2.5 (1.2-3.4) [place] # (Auto) 1.6 H (0.1-0.6) Eos # (Auto) 0.0 (0.0-0.7) Baso # (Auto) 0.01 (0.0-2.0) K/mm3 Absolute Neuts (auto) 0.69 L (1.4-6.5) Neutrophils % (Manual) 12 L (50.0-70.0) % Lymphocytes % (Manual) 28 (22.0-35.0) % Atypical Lymphs % 3 H (0.0-0.0) % Monocytes % (Manual) 37 H (1.0-6.0) % Eosinophils % (Manual) 20 H (0.0-3.0) % Nucleated RBC % 3 % pCO2 53 H (35-45) mm/Hg pO2 93.0 (80-100) mm/Hg HCO3 23.8 (21-28) mmol/L ABG pH 7.26 L (7.35-7.45) ABG Total CO2 25.4 (22-28) mmol.L ABG O2 Saturation 98.9 H (95-98) % ABG O2 Content 13.4 L (15-23) ML/dl ABG Base Excess -3.5 L (-2.0-3.0) mmol/L ABG Hemoglobin 9.9 L (11.7-17.4) g/dL ABG Carboxyhemoglobin 2.3 H (0.5-1.5) % POC ABG HHb (Measured) 1.1 (0-5) % ABG Methemoglobin 1.5 (0.0-3.0) % ABG O2 Capacity 13.5 L (16-24) mL/dl Hgb O2 Saturation 95.1 (95.0-98.0) % FiO2 100.0 % Crit Value Called To Crit Value Called By Blood Gas Notified Time Sodium 156 H* (132-148) mmol/L Potassium 4.0 (3.6-5.0) mmol/L Chloride 123 H (98-107) mmol/L Carbon Dioxide 26 (21-33) mmol/L Anion Gap 11 (10-20) BUN 40 H (7-21) mg/dL Creatinine 0.8 (0.7-1.2) mg/dl Est GFR ( Amer) > 60 Est GFR (Non-Af Amer) > 60 Random Glucose 178 H (70-110) mg/dL Calcium 9.3 (8.4-10.5) mg/dL Phosphorus 4.7 H (2.5-4.5) mg/dL Magnesium 1.9 (1.7-2.2) mg/dL Total Bilirubin 5.1 H (0.2-1.3) mg/dL AST 34 (14-36) U/L ALT 27 (7-56) U/L Alkaline Phosphatase 155 H D (38-126) U/L Total Protein 6.8 (5.8-8.3) g/dL Albumin 3.1 (3.0-4.8) g/dL Globulin 3.7 gm/dL Albumin/Globulin Ratio 0.8 L (1.1-1.8) TRINITY Screen (Negative) Proteinase 3 (PR3) (<1.0) AI Myeloperoxidase Ab (<1.0) AI Anti-Cardiolipin IgG Ab (<=14) GPL Anti-Cardiolipin IgA Ab (<=11) APL Anti-Cardiolipin IgM Ab (<=12) MPL Beta-(1,3)-D-Glucan (<60) pg/mL B-(1,3)-D-Glucan Intrp 08/17/18 08/16/18 08/16/18 Range/Units 06:00 11:20 10:53 WBC (4.5-11.0) 10^3/uL RBC (3.5-6.1) 10^6/uL Hgb (12.0-16.0) g/dL Hct (36.0-48.0) % MCV (80.0-105.0) fl MCH (25.0-35.0) pg MCHC (31.0-37.0) g/dl RDW (11.5-14.5) % Plt Count (120.0-450.0) 10^3/uL Manual Plt Count (120-450) K/mm3 MPV (7.0-11.0) fl Neut % (Auto) (50.0-68.0) % Lymph % (Auto) (22.0-35.0) % [place] % (Auto) (1.0-6.0) % Eos % (Auto) (1.5-5.0) % Baso % (Auto) (0.0-3.0) % Lymph # (Auto) (1.2-3.4) [place] # (Auto) (0.1-0.6) Eos # (Auto) (0.0-0.7) Baso # (Auto) (0.0-2.0) K/mm3 Absolute Neuts (auto) (1.4-6.5) Neutrophils % (Manual) (50.0-70.0) % Lymphocytes % (Manual) (22.0-35.0) % Atypical Lymphs % (0.0-0.0) % Monocytes % (Manual) (1.0-6.0) % Eosinophils % (Manual) (0.0-3.0) % Nucleated RBC % % pCO2 65 H 49 H (35-45) mm/Hg pO2 61.0 L 72.0 L (80-100) mm/Hg HCO3 24.3 17.9 L (21-28) mmol/L ABG pH 7.18 L* 7.17 L* (7.35-7.45) ABG Total CO2 26.3 19.4 L (22-28) mmol.L ABG O2 Saturation 92.5 L 97.5 (95-98) % ABG O2 Content 14.4 L 10.8 L (15-23) ML/dl ABG Base Excess -4.9 L -10.0 L (-2.0-3.0) mmol/L ABG Hemoglobin 11.4 L 8.1 L (11.7-17.4) g/dL ABG Carboxyhemoglobin 2.6 H 2.2 H (0.5-1.5) % POC ABG HHb (Measured) 7.3 H 2.4 (0-5) % ABG Methemoglobin 0.6 1.3 (0.0-3.0) % ABG O2 Capacity 15.6 L 11.1 L (16-24) mL/dl Hgb O2 Saturation 89.5 L 94.1 L (95.0-98.0) % FiO2 100.0 100.0 % Crit Value Called To Steven matta Crit Value Called By Rs Stewart Blood Gas Notified Time 640 1057 Sodium 153 H (132-148) mmol/L Potassium 4.4 (3.6-5.0) mmol/L Chloride 123 H (98-107) mmol/L Carbon Dioxide 22 (21-33) mmol/L Anion Gap 11 (10-20) BUN 39 H (7-21) mg/dL Creatinine 1.0 (0.7-1.2) mg/dl Est GFR ( Amer) > 60 Est GFR (Non-Af Amer) 58 Random Glucose 178 H (70-110) mg/dL Calcium 8.7 (8.4-10.5) mg/dL Phosphorus (2.5-4.5) mg/dL Magnesium (1.7-2.2) mg/dL Total Bilirubin (0.2-1.3) mg/dL AST (14-36) U/L ALT (7-56) U/L Alkaline Phosphatase (38-126) U/L Total Protein (5.8-8.3) g/dL Albumin (3.0-4.8) g/dL Globulin gm/dL Albumin/Globulin Ratio (1.1-1.8) TRINITY Screen (Negative) Proteinase 3 (PR3) (<1.0) AI Myeloperoxidase Ab (<1.0) AI Anti-Cardiolipin IgG Ab (<=14) GPL Anti-Cardiolipin IgA Ab (<=11) APL Anti-Cardiolipin IgM Ab (<=12) MPL Beta-(1,3)-D-Glucan (<60) pg/mL B-(1,3)-D-Glucan Intrp 08/14/18 08/14/18 08/13/18 Range/Units 17:00 17:00 13:15 WBC (4.5-11.0) 10^3/uL RBC (3.5-6.1) 10^6/uL Hgb (12.0-16.0) g/dL Hct (36.0-48.0) % MCV (80.0-105.0) fl MCH (25.0-35.0) pg MCHC (31.0-37.0) g/dl RDW (11.5-14.5) % Plt Count (120.0-450.0) 10^3/uL Manual Plt Count (120-450) K/mm3 MPV (7.0-11.0) fl Neut % (Auto) (50.0-68.0) % Lymph % (Auto) (22.0-35.0) % [place] % (Auto) (1.0-6.0) % Eos % (Auto) (1.5-5.0) % Baso % (Auto) (0.0-3.0) % Lymph # (Auto) (1.2-3.4) [place] # (Auto) (0.1-0.6) Eos # (Auto) (0.0-0.7) Baso # (Auto) (0.0-2.0) K/mm3 Absolute Neuts (auto) (1.4-6.5) Neutrophils % (Manual) (50.0-70.0) % Lymphocytes % (Manual) (22.0-35.0) % Atypical Lymphs % (0.0-0.0) % Monocytes % (Manual) (1.0-6.0) % Eosinophils % (Manual) (0.0-3.0) % Nucleated RBC % % pCO2 (35-45) mm/Hg pO2 (80-100) mm/Hg HCO3 (21-28) mmol/L ABG pH (7.35-7.45) ABG Total CO2 (22-28) mmol.L ABG O2 Saturation (95-98) % ABG O2 Content (15-23) ML/dl ABG Base Excess (-2.0-3.0) mmol/L ABG Hemoglobin (11.7-17.4) g/dL ABG Carboxyhemoglobin (0.5-1.5) % POC ABG HHb (Measured) (0-5) % ABG Methemoglobin (0.0-3.0) % ABG O2 Capacity (16-24) mL/dl Hgb O2 Saturation (95.0-98.0) % FiO2 % Crit Value Called To Crit Value Called By Blood Gas Notified Time Sodium (132-148) mmol/L Potassium (3.6-5.0) mmol/L Chloride (98-107) mmol/L Carbon Dioxide (21-33) mmol/L Anion Gap (10-20) BUN (7-21) mg/dL Creatinine (0.7-1.2) mg/dl Est GFR ( Amer) Est GFR (Non-Af Amer) Random Glucose (70-110) mg/dL Calcium (8.4-10.5) mg/dL Phosphorus (2.5-4.5) mg/dL Magnesium (1.7-2.2) mg/dL Total Bilirubin (0.2-1.3) mg/dL AST (14-36) U/L ALT (7-56) U/L Alkaline Phosphatase (38-126) U/L Total Protein (5.8-8.3) g/dL Albumin (3.0-4.8) g/dL Globulin gm/dL Albumin/Globulin Ratio (1.1-1.8) TRINITY Screen Negative (Negative) Proteinase 3 (PR3) <1.0 (<1.0) AI Myeloperoxidase Ab <1.0 (<1.0) AI Anti-Cardiolipin IgG Ab <14 (<=14) GPL Anti-Cardiolipin IgA Ab <11 (<=11) APL Anti-Cardiolipin IgM Ab <12 (<=12) MPL Beta-(1,3)-D-Glucan 74 H (<60) pg/mL B-(1,3)-D-Glucan Intrp Indeterminate H Laboratory Results - last 24 hr 08/13/18 08/14/18 08/14/18 13:15 17:00 17:00 WBC RBC Hgb Hct MCV MCH MCHC RDW Plt Count Manual Plt Count MPV Neut % (Auto) Lymph % (Auto) [place] % (Auto) Eos % (Auto) Baso % (Auto) Lymph # (Auto) [place] # (Auto) Eos # (Auto) Baso # (Auto) Absolute Neuts (auto) Neutrophils % (Manual) Lymphocytes % (Manual) Atypical Lymphs % Monocytes % (Manual) Eosinophils % (Manual) Nucleated RBC % pCO2 pO2 HCO3 ABG pH ABG Total CO2 ABG O2 Saturation ABG O2 Content ABG Base Excess ABG Hemoglobin ABG Carboxyhemoglobin POC ABG HHb (Measured) ABG Methemoglobin ABG O2 Capacity Hgb O2 Saturation FiO2 Crit Value Called To Crit Value Called By Blood Gas Notified Time Sodium Potassium Chloride Carbon Dioxide Anion Gap BUN Creatinine Est GFR ( Amer) Est GFR (Non-Af Amer) Random Glucose Calcium Phosphorus Magnesium Total Bilirubin AST ALT Alkaline Phosphatase Total Protein Albumin Globulin Albumin/Globulin Ratio TRINITY Screen Negative Proteinase 3 (PR3) <1.0 Myeloperoxidase Ab <1.0 Anti-Cardiolipin IgG Ab <14 Anti-Cardiolipin IgA Ab <11 Anti-Cardiolipin IgM Ab <12 Beta-(1,3)-D-Glucan 74 H B-(1,3)-D-Glucan Intrp Indeterminate H 08/16/18 08/16/18 08/17/18 10:53 11:20 06:00 WBC RBC Hgb Hct MCV MCH MCHC RDW Plt Count Manual Plt Count MPV Neut % (Auto) Lymph % (Auto) [place] % (Auto) Eos % (Auto) Baso % (Auto) Lymph # (Auto) [place] # (Auto) Eos # (Auto) Baso # (Auto) Absolute Neuts (auto) Neutrophils % (Manual) Lymphocytes % (Manual) Atypical Lymphs % Monocytes % (Manual) Eosinophils % (Manual) Nucleated RBC % pCO2 49 H 65 H pO2 72.0 L 61.0 L HCO3 17.9 L 24.3 ABG pH 7.17 L* 7.18 L* ABG Total CO2 19.4 L 26.3 ABG O2 Saturation 97.5 92.5 L ABG O2 Content 10.8 L 14.4 L ABG Base Excess -10.0 L -4.9 L ABG Hemoglobin 8.1 L 11.4 L ABG Carboxyhemoglobin 2.2 H 2.6 H POC ABG HHb (Measured) 2.4 7.3 H ABG Methemoglobin 1.3 0.6 ABG O2 Capacity 11.1 L 15.6 L Hgb O2 Saturation 94.1 L 89.5 L FiO2 100.0 100.0 Crit Value Called To Dr yessenia Harris Crit Value Called By Stewart Lyon Blood Gas Notified Time 1057 640 Sodium 153 H Potassium 4.4 Chloride 123 H Carbon Dioxide 22 Anion Gap 11 BUN 39 H Creatinine 1.0 Est GFR ( Amer) > 60 Est GFR (Non-Af Amer) 58 Random Glucose 178 H Calcium 8.7 Phosphorus Magnesium Total Bilirubin AST ALT Alkaline Phosphatase Total Protein Albumin Globulin Albumin/Globulin Ratio TRINTIY Screen Proteinase 3 (PR3) Myeloperoxidase Ab Anti-Cardiolipin IgG Ab Anti-Cardiolipin IgA Ab Anti-Cardiolipin IgM Ab Beta-(1,3)-D-Glucan B-(1,3)-D-Glucan Intrp 08/17/18 08/17/18 08/17/18 06:40 06:40 08:45 WBC 4.8 RBC 2.90 L Hgb 8.3 L Hct 25.7 L MCV 88.6 MCH 28.6 MCHC 32.3 RDW 18.7 H Plt Count 21 L* Manual Plt Count 23 L* MPV 9.4 Neut % (Auto) 14.4 L Lymph % (Auto) 52.5 H [place] % (Auto) 32.9 H Eos % (Auto) 0.0 L Baso % (Auto) 0.2 Lymph # (Auto) 2.5 [place] # (Auto) 1.6 H Eos # (Auto) 0.0 Baso # (Auto) 0.01 Absolute Neuts (auto) 0.69 L Neutrophils % (Manual) 12 L Lymphocytes % (Manual) 28 Atypical Lymphs % 3 H Monocytes % (Manual) 37 H Eosinophils % (Manual) 20 H Nucleated RBC % 3 pCO2 53 H pO2 93.0 HCO3 23.8 ABG pH 7.26 L ABG Total CO2 25.4 ABG O2 Saturation 98.9 H ABG O2 Content 13.4 L ABG Base Excess -3.5 L ABG Hemoglobin 9.9 L ABG Carboxyhemoglobin 2.3 H POC ABG HHb (Measured) 1.1 ABG Methemoglobin 1.5 ABG O2 Capacity 13.5 L Hgb O2 Saturation 95.1 FiO2 100.0 Crit Value Called To Crit Value Called By Blood Gas Notified Time Sodium 156 H* Potassium 4.0 Chloride 123 H Carbon Dioxide 26 Anion Gap 11 BUN 40 H Creatinine 0.8 Est GFR ( Amer) > 60 Est GFR (Non-Af Amer) > 60 Random Glucose 178 H Calcium 9.3 Phosphorus 4.7 H Magnesium 1.9 Total Bilirubin 5.1 H AST 34 ALT 27 Alkaline Phosphatase 155 H D Total Protein 6.8 Albumin 3.1 Globulin 3.7 Albumin/Globulin Ratio 0.8 L TRINITY Screen Proteinase 3 (PR3) Myeloperoxidase Ab Anti-Cardiolipin IgG Ab Anti-Cardiolipin IgA Ab Anti-Cardiolipin IgM Ab Beta-(1,3)-D-Glucan B-(1,3)-D-Glucan Intrp Radiology Impressions: Radiology Impressions Chest X-Ray 08/17/18 07:00 IMPRESSION: No significant change in diffuse alveolar infiltrate. Endotracheal tube and nasogastric tube in satisfactory position Chest X-Ray 08/17/18 08:46 IMPRESSION: Diffuse alveolar infiltrate unchanged. Endotracheal and nasogastric tube in satisfactory position Assessment/Plan - Assessment and Plan (Free Text) Assessment: Pt is a 53 yo female with a PMH of MDS, AML, sickle cell disease, lung cancer, breast cancer, who presented to [facility] complaining of fever and abdominal pain, rapid response was called 08/13/18 for respiratory failure, pt was transfered to the ICU where she was intubated, a central line was placed, and a BAL was performed. Plan: Neuro - intubated and sedated - propofol, fentanyl Cardio - HTN, tachycardia - hydrocortisone 100mg IV q8, lopressor, levophed - ECHO EF42%, findings suggestive of MVP, RVSP 46, no signs of endocarditis - TRINITY negative - ANCA, anti phospholipid, RF pending Pulm - COPD, tobacco abuse - hypoxic respiratory failure secondary to ARDS, likely due to diffuse alveolar hemorrhage - V/Q scan low probability for PE - BAL completed, leukopenia with no increase in monocytes, no blasts identified, normocytic/ normochromic anemia, no evidence of hemolysis - monitor respiratory status, proceed with protective lung ventilation - ABG 53/93/7.26 - vent settings: 100%, PEEP10, RR34, TV 350 - duduane, harley, singular - Pulm consulted, Dr Maurer GI - NPO - CTAP shows diffuse thickening of the terminal ileum - GI consulted, Dr Dela Cruz Heme/Onc - MDS, AML, Sickle cell disease, lung cancer s/p resection, breast cancer s/p right-sided mastectomy, pancytopenia - not a candidate for bone marrow transplant - possible blast crisis - WBC 4.8 - Hgb 8.3, manual plt 23, retic 0.10, PT 23.1, INR 2.08, Fibrinogen 689, fibrin degrad products >40 - discontinued tranexamic acid - C3/C4 wnl - Heme/onc consulted, Dr Lopez Nephro/ - BUN/Cr 40/0.8 - start 300cc H2O q4 hours via NG tube ID - procal 43.21 - doxy, zosyn - CMV, HIV, influenza NEGATIVE - ID consulted, Dr Yessica Rubin - will maintain blood glucose 140-180, according to the NICE-SUGAR trial Pt seen and examined, assessment and plan discussed with Dr Yessenia Tran PGY1 - Date & Time Date: 08/17/18 Time: 09:46 <Lavelle Matta - Last Filed: 08/17/18 12:54> CCU Objective - Vital Signs / Intake & Output Intake and Output (Last 8hrs): Intake & Output 08/16/18 08/17/18 08/17/18 22:59 06:59 14:59 Intake Total 2200 215 Output Total 1000 Balance 1200 215 Intake: IV 1200 215 Right Femoral 750 Tube Feeding 500 Other 500 Output: Urine 1000 2-way Urethral 1000 Other: # Bowel Movements 1 - Medications Active Medications: Active Medications Generic Name Dose Route Start Last Admin Trade Name Freq PRN Reason Stop Dose Admin Albumin Human 12.5 gm 08/16/18 17:45 08/17/18 06:30 Albumin Human 25% (12.5 Gm/50 Ml) IV 08/17/18 23:59 12.5 gm Q6H KAYLEIGH Administration Albuterol/Ipratropium 3 ml 08/08/18 14:07 08/12/18 03:00 Duoneb 3 Mg/0.5 Mg (3 Ml) Ud IH 3 ml [id number] PRN Administration Shortness of Breath Albuterol/Ipratropium 3 ml 08/16/18 20:00 08/17/18 07:32 Duoneb 3 Mg/0.5 Mg (3 Ml) Ud IH 3 ml [id number] KAYLEIGH Administration Amlodipine Besylate 10 mg 08/08/18 10:00 08/13/18 10:00 Norvasc PO Not Given DAILY KAYLEIGH Budesonide 0.5 mg 08/07/18 20:00 08/17/18 07:32 Pulmicort Respules IH 0.5 mg BIDRESP KAYLEIGH Administration Clonazepam 0.5 mg 08/07/18 18:00 08/13/18 12:42 Klonopin PO Not Given BID KAYLEIGH Protocol Diphenhydramine HCl 25 mg 08/12/18 13:50 Benadryl IVP Q8H PRN Allergy symptoms Ergocalciferol 1 cap 08/12/18 10:00 08/12/18 09:24 Drisdol 50,000 Intl Units Cap PO 1 cap SUN KAYLEIGH Administration Hydrocortisone Sodium Succinate 100 mg 08/17/18 14:00 Solu-Cortef IVP Q8 KAYLEIGH Propofol 1,000 mg in 100 mls @ 1.591 mls/hr 08/13/18 12:48 08/17/18 10:30 Diprivan IV 50 mcg/kg/min .Q24H PRN 15.908 mls/hr TITRATE PER MD ORDER Titration Protocol 5 MCG/KG/MIN Doxycycline Hyclate 100 mg/ 100 mls @ 100 mls/hr 08/13/18 13:30 08/17/18 09:38 Sodium Chloride IVPB 08/20/18 13:31 100 mls/hr Q12 KAYLEIGH Administration Protocol Piperacillin Sod/Tazobactam Sod 100 mls @ 25 mls/hr 08/13/18 14:00 08/17/18 06:30 Zosyn 3.375 In Ns 100ml IVPB 08/20/18 14:01 25 mls/hr Q8 KAYLEIGH Administration Protocol NOREPINEPHRINE BIT/0.9 % NACL 4 mg in 250 mls @ 15 mls/hr 08/14/18 11:47 08/16/18 21:27 Levophed 4 Mg/ 250 Ml Ns Premixed IV Infused .[id number] PRN Titration TITRATE PER MD ORDER Protocol 4 MCG/MIN Potassium Chloride 20 meq/ 1,010 mls @ 100 mls/hr 08/15/18 14:33 08/15/18 15:29 Sodium Chloride IV 100 mls/hr .[id number] KAYLEIGH Administration Dextrose 1,000 mls @ 50 mls/hr 08/17/18 08:45 08/17/18 09:35 Dextrose 5% In Water 1000 Ml IV 50 mls/hr .Q20H KAYLEIGH Administration Fentanyl Citrate 1,000 mcg in 100 mls @ 8 mls/hr 08/17/18 12:14 Fentanyl Citrate/Sodium Chloride 1 Mg/100 Ml IV .[id number] PRN TITRATE PER MD ORDER Protocol 80 MCG/HR Loratadine 10 mg 08/08/18 10:00 08/13/18 10:00 Claritin PO Not Given DAILY KAYLEIGH Losartan Potassium 50 mg 08/07/18 18:00 08/13/18 18:14 Cozaar PO Not Given QPM KAYLEIGH Metoprolol Tartrate 5 mg 08/16/18 16:29 Lopressor IVP Q4H PRN Heart rate Metoprolol Tartrate 25 mg 08/17/18 10:00 08/17/18 09:33 Lopressor PO 25 mg BID KAYLEIGH Administration Mupirocin 1 gm 08/13/18 20:30 08/16/18 19:14 Bactroban Ointment TOP 1 unit BID KAYLEIGH Administration Nicotine 1 patch 08/07/18 16:45 08/12/18 09:26 Nicoderm Cq TD Not Given DAILY [facility] Non-Formulary Medication 1 cap 08/08/18 10:00 08/16/18 11:01 Vitamin B Complex [Super B-50 Complex] PO Not Given DAILY KAYLEIGH Ondansetron HCl 4 mg 08/08/18 13:17 08/10/18 02:02 Zofran Inj IVP 4 mg Q6H PRN Administration Nausea/Vomiting Pantoprazole Sodium 40 mg 08/13/18 10:00 08/17/18 09:33 Protonix Inj IVP 40 mg DAILY KAYLEIGH Administration Sodium Chloride 0 ml 08/07/18 18:00 08/17/18 09:39 [place] Nasal [place] NS Not Given QID KAYLEIGH - Patient Studies Lab Studies: Microbiology Studies 08/13/18 17:00 Cytomegalovirus Culture - Preliminary Other: Please Indicate Cytomegalovirus Culture - Preliminary Cytomegalovirus Culture - Preliminary 08/11/18 20:45 Blood Culture - Final Blood NO GROWTH AFTER 5 DAYS Gram Stain - Final TEST NOT PERFORMED 08/11/18 20:25 Blood Culture - Final Blood NO GROWTH AFTER 5 DAYS Gram Stain - Final TEST NOT PERFORMED 08/13/18 17:00 Gram Stain - Final Sputum Sputum Culture - Final No growth. Lab Studies 08/17/18 08/17/18 08/17/18 Range/Units 08:45 06:40 06:40 WBC 4.8 (4.5-11.0) 10^3/uL RBC 2.90 L (3.5-6.1) 10^6/uL Hgb 8.3 L (12.0-16.0) g/dL Hct 25.7 L (36.0-48.0) % MCV 88.6 (80.0-105.0) fl MCH 28.6 (25.0-35.0) pg MCHC 32.3 (31.0-37.0) g/dl RDW 18.7 H (11.5-14.5) % Plt Count 21 L* (120.0-450.0) 10^3/uL Manual Plt Count 23 L* (120-450) K/mm3 MPV 9.4 (7.0-11.0) fl Neut % (Auto) 14.4 L (50.0-68.0) % Lymph % (Auto) 52.5 H (22.0-35.0) % [place] % (Auto) 32.9 H (1.0-6.0) % Eos % (Auto) 0.0 L (1.5-5.0) % Baso % (Auto) 0.2 (0.0-3.0) % Lymph # (Auto) 2.5 (1.2-3.4) [place] # (Auto) 1.6 H (0.1-0.6) Eos # (Auto) 0.0 (0.0-0.7) Baso # (Auto) 0.01 (0.0-2.0) K/mm3 Absolute Neuts (auto) 0.69 L (1.4-6.5) Neutrophils % (Manual) 12 L (50.0-70.0) % Lymphocytes % (Manual) 28 (22.0-35.0) % Atypical Lymphs % 3 H (0.0-0.0) % Monocytes % (Manual) 37 H (1.0-6.0) % Eosinophils % (Manual) 20 H (0.0-3.0) % Nucleated RBC % 3 % pCO2 53 H (35-45) mm/Hg pO2 93.0 (80-100) mm/Hg HCO3 23.8 (21-28) mmol/L ABG pH 7.26 L (7.35-7.45) ABG Total CO2 25.4 (22-28) mmol.L ABG O2 Saturation 98.9 H (95-98) % ABG O2 Content 13.4 L (15-23) ML/dl ABG Base Excess -3.5 L (-2.0-3.0) mmol/L ABG Hemoglobin 9.9 L (11.7-17.4) g/dL ABG Carboxyhemoglobin 2.3 H (0.5-1.5) % POC ABG HHb (Measured) 1.1 (0-5) % ABG Methemoglobin 1.5 (0.0-3.0) % ABG O2 Capacity 13.5 L (16-24) mL/dl Hgb O2 Saturation 95.1 (95.0-98.0) % FiO2 100.0 % Crit Value Called To Crit Value Called By Blood Gas Notified Time Sodium 156 H* (132-148) mmol/L Potassium 4.0 (3.6-5.0) mmol/L Chloride 123 H (98-107) mmol/L Carbon Dioxide 26 (21-33) mmol/L Anion Gap 11 (10-20) BUN 40 H (7-21) mg/dL Creatinine 0.8 (0.7-1.2) mg/dl Est GFR ( Amer) > 60 Est GFR (Non-Af Amer) > 60 Random Glucose 178 H (70-110) mg/dL Calcium 9.3 (8.4-10.5) mg/dL Phosphorus 4.7 H (2.5-4.5) mg/dL Magnesium 1.9 (1.7-2.2) mg/dL Total Bilirubin 5.1 H (0.2-1.3) mg/dL AST 34 (14-36) U/L ALT 27 (7-56) U/L Alkaline Phosphatase 155 H D (38-126) U/L Total Protein 6.8 (5.8-8.3) g/dL Albumin 3.1 (3.0-4.8) g/dL Globulin 3.7 gm/dL Albumin/Globulin Ratio 0.8 L (1.1-1.8) TRINITY Screen (Negative) Proteinase 3 (PR3) (<1.0) AI Myeloperoxidase Ab (<1.0) AI Anti-Cardiolipin IgG Ab (<=14) GPL Anti-Cardiolipin IgA Ab (<=11) APL Anti-Cardiolipin IgM Ab (<=12) MPL 08/17/18 08/14/18 08/14/18 Range/Units 06:00 17:00 17:00 WBC (4.5-11.0) 10^3/uL RBC (3.5-6.1) 10^6/uL Hgb (12.0-16.0) g/dL Hct (36.0-48.0) % MCV (80.0-105.0) fl MCH (25.0-35.0) pg MCHC (31.0-37.0) g/dl RDW (11.5-14.5) % Plt Count (120.0-450.0) 10^3/uL Manual Plt Count (120-450) K/mm3 MPV (7.0-11.0) fl Neut % (Auto) (50.0-68.0) % Lymph % (Auto) (22.0-35.0) % [place] % (Auto) (1.0-6.0) % Eos % (Auto) (1.5-5.0) % Baso % (Auto) (0.0-3.0) % Lymph # (Auto) (1.2-3.4) [place] # (Auto) (0.1-0.6) Eos # (Auto) (0.0-0.7) Baso # (Auto) (0.0-2.0) K/mm3 Absolute Neuts (auto) (1.4-6.5) Neutrophils % (Manual) (50.0-70.0) % Lymphocytes % (Manual) (22.0-35.0) % Atypical Lymphs % (0.0-0.0) % Monocytes % (Manual) (1.0-6.0) % Eosinophils % (Manual) (0.0-3.0) % Nucleated RBC % % pCO2 65 H (35-45) mm/Hg pO2 61.0 L (80-100) mm/Hg HCO3 24.3 (21-28) mmol/L ABG pH 7.18 L* (7.35-7.45) ABG Total CO2 26.3 (22-28) mmol.L ABG O2 Saturation 92.5 L (95-98) % ABG O2 Content 14.4 L (15-23) ML/dl ABG Base Excess -4.9 L (-2.0-3.0) mmol/L ABG Hemoglobin 11.4 L (11.7-17.4) g/dL ABG Carboxyhemoglobin 2.6 H (0.5-1.5) % POC ABG HHb (Measured) 7.3 H (0-5) % ABG Methemoglobin 0.6 (0.0-3.0) % ABG O2 Capacity 15.6 L (16-24) mL/dl Hgb O2 Saturation 89.5 L (95.0-98.0) % FiO2 100.0 % Crit Value Called To Rn Crit Value Called By Rs Blood Gas Notified Time 640 Sodium (132-148) mmol/L Potassium (3.6-5.0) mmol/L Chloride (98-107) mmol/L Carbon Dioxide (21-33) mmol/L Anion Gap (10-20) BUN (7-21) mg/dL Creatinine (0.7-1.2) mg/dl Est GFR ( Amer) Est GFR (Non-Af Amer) Random Glucose (70-110) mg/dL Calcium (8.4-10.5) mg/dL Phosphorus (2.5-4.5) mg/dL Magnesium (1.7-2.2) mg/dL Total Bilirubin (0.2-1.3) mg/dL AST (14-36) U/L ALT (7-56) U/L Alkaline Phosphatase (38-126) U/L Total Protein (5.8-8.3) g/dL Albumin (3.0-4.8) g/dL Globulin gm/dL Albumin/Globulin Ratio (1.1-1.8) TRINITY Screen Negative (Negative) Proteinase 3 (PR3) <1.0 (<1.0) AI Myeloperoxidase Ab <1.0 (<1.0) AI Anti-Cardiolipin IgG Ab <14 (<=14) GPL Anti-Cardiolipin IgA Ab <11 (<=11) APL Anti-Cardiolipin IgM Ab <12 (<=12) MPL Laboratory Results - last 24 hr 08/14/18 08/14/18 08/17/18 17:00 17:00 06:00 WBC RBC Hgb Hct MCV MCH MCHC RDW Plt Count Manual Plt Count MPV Neut % (Auto) Lymph % (Auto) [place] % (Auto) Eos % (Auto) Baso % (Auto) Lymph # (Auto) [place] # (Auto) Eos # (Auto) Baso # (Auto) Absolute Neuts (auto) Neutrophils % (Manual) Lymphocytes % (Manual) Atypical Lymphs % Monocytes % (Manual) Eosinophils % (Manual) Nucleated RBC % pCO2 65 H pO2 61.0 L HCO3 24.3 ABG pH 7.18 L* ABG Total CO2 26.3 ABG O2 Saturation 92.5 L ABG O2 Content 14.4 L ABG Base Excess -4.9 L ABG Hemoglobin 11.4 L ABG Carboxyhemoglobin 2.6 H POC ABG HHb (Measured) 7.3 H ABG Methemoglobin 0.6 ABG O2 Capacity 15.6 L Hgb O2 Saturation 89.5 L FiO2 100.0 Crit Value Called To Rn Crit Value Called By Rs Blood Gas Notified Time 640 Sodium Potassium Chloride Carbon Dioxide Anion Gap BUN Creatinine Est GFR ( Amer) Est GFR (Non-Af Amer) Random Glucose Calcium Phosphorus Magnesium Total Bilirubin AST ALT Alkaline Phosphatase Total Protein Albumin Globulin Albumin/Globulin Ratio TRINITY Screen Negative Proteinase 3 (PR3) <1.0 Myeloperoxidase Ab <1.0 Anti-Cardiolipin IgG Ab <14 Anti-Cardiolipin IgA Ab <11 Anti-Cardiolipin IgM Ab <12 08/17/18 08/17/18 08/17/18 06:40 06:40 08:45 WBC 4.8 RBC 2.90 L Hgb 8.3 L Hct 25.7 L MCV 88.6 MCH 28.6 MCHC 32.3 RDW 18.7 H Plt Count 21 L* Manual Plt Count 23 L* MPV 9.4 Neut % (Auto) 14.4 L Lymph % (Auto) 52.5 H [place] % (Auto) 32.9 H Eos % (Auto) 0.0 L Baso % (Auto) 0.2 Lymph # (Auto) 2.5 [place] # (Auto) 1.6 H Eos # (Auto) 0.0 Baso # (Auto) 0.01 Absolute Neuts (auto) 0.69 L Neutrophils % (Manual) 12 L Lymphocytes % (Manual) 28 Atypical Lymphs % 3 H Monocytes % (Manual) 37 H Eosinophils % (Manual) 20 H Nucleated RBC % 3 pCO2 53 H pO2 93.0 HCO3 23.8 ABG pH 7.26 L ABG Total CO2 25.4 ABG O2 Saturation 98.9 H ABG O2 Content 13.4 L ABG Base Excess -3.5 L ABG Hemoglobin 9.9 L ABG Carboxyhemoglobin 2.3 H POC ABG HHb (Measured) 1.1 ABG Methemoglobin 1.5 ABG O2 Capacity 13.5 L Hgb O2 Saturation 95.1 FiO2 100.0 Crit Value Called To Crit Value Called By Blood Gas Notified Time Sodium 156 H* Potassium 4.0 Chloride 123 H Carbon Dioxide 26 Anion Gap 11 BUN 40 H Creatinine 0.8 Est GFR ( Amer) > 60 Est GFR (Non-Af Amer) > 60 Random Glucose 178 H Calcium 9.3 Phosphorus 4.7 H Magnesium 1.9 Total Bilirubin 5.1 H AST 34 ALT 27 Alkaline Phosphatase 155 H D Total Protein 6.8 Albumin 3.1 Globulin 3.7 Albumin/Globulin Ratio 0.8 L TRINITY Screen Proteinase 3 (PR3) Myeloperoxidase Ab Anti-Cardiolipin IgG Ab Anti-Cardiolipin IgA Ab Anti-Cardiolipin IgM Ab Radiology Impressions: Radiology Impressions Chest X-Ray 08/17/18 07:00 IMPRESSION: No significant change in diffuse alveolar infiltrate. Endotracheal tube and nasogastric tube in satisfactory position Chest X-Ray 08/17/18 08:46 IMPRESSION: Diffuse alveolar infiltrate unchanged. Endotracheal and nasogastric tube in satisfactory position Attending/Attestation - Attestation I have personally seen and examined this patient.: Yes I have fully participated in the care of the patient.: Yes I have reviewed all pertinent clinical information: Yes Notes (Text): 08/17/18 12:52 The patient was seen and examined at the bedside. Patient care was discussed with resident Medical records, lab studies were reviewed and management issues were discussed and formulated. Agree with above treatment plans as outlined in 's note with addition of the following: Acute Respiratory Failure \ Hypercapnea \ Hypoxemia \ Septic shock \ PNA \ Hemoptysis \ Lung CA \ COPD \ AML \ Thrombocytopenia \ Hypernatremia -hemodynamic monitoring to maintain MAP>65; off vasopressor support -hold atenolol while labile B\P -mechanical ventilation and o2 supplementation to maintain Spo2 >90 Pao2>60 -monitor for TV 6ml\kg IBW and plateau pressure <30 -ABG in AM reviewed and vent settings changed -CXR reviewed -continue nebs and steroids and pulmonary toileting -continue broad spectrum Abx as per ID team and f\u cultures -f\u Bun\Cr and U\o; monitor and replace e-lites; monitor serial Na+ lvl ; start D5W -Tube feds and free water; aspiration precautions -heme\onc team f\u -palliation team f\u appreciated; pt is now DNR as per family request -DVT \ PUD prophylaxis CCM time 33min
[2018-08-17] MEDS: Fentanyl 1000mcg/100ml NS 1,000 MCG/100 ML BAG IV PRN ×3 (09:50→20:55)
[2018-08-17] MEDS: Mupirocin 2% Ointment 15 GM TUBE TOP SCH ×2 (11:00→17:37)
--- NOTE | 2018-08-17 11:49 | PN ---
DATE: 08/17/2018 PULMONARY PROGRESS NOTE REFERRING PHYSICIAN: August Lara MD SUBJECTIVE: The patient is seen lying in bed, remains intubated, sedated, on propofol and fentanyl, norepinephrine is off this morning. No hemoptysis, hematemesis, hematuria, or diarrhea reported. OBJECTIVE: VITAL SIGNS: Blood pressure 144/61, pulse 118, and oxygen saturation 100%. HEENT: NG tube and ET tube in place. Moist mucous membranes. RESPIRATORY: Few scattered rhonchi bilaterally. Decreased breath sound at the bases. CARDIOVASCULAR: S1 and S2, tachycardic. ABDOMEN: Soft. No distention. EXTREMITIES: Bilateral lower extremity edema. Left upper extremity edema. NEUROLOGIC: Intubated and sedated. MEDICATIONS: Reviewed. Albumin 12.5 g IV every 6 hours, DuoNeb 3 mL inhalation every 4 hours p.r.n., DuoNeb 3 mL inhalation every 6 hours, Norvasc 10 mg daily on hold, Pulmicort 0.5 mg inhalation twice a day, Klonopin 0.5 mg twice a day, dextrose 5% in water 1000 mL at 50 mL per hour, Benadryl 25 mg every 8 hours p.r.n., doxycycline 100 mg every 12 hours, ergocalciferol 50,000 units weekly, fentanyl 1000 mcg in 100 mL at 7.5 mL per hour p.r.n., Solu-Cortef 100 mg IV push every 8 hours, Claritin 10 mg daily on hold, Cozaar 50 mg in the evening on hold, metoprolol tartarate 5 mg IV push every 4 hours p.r.n., metoprolol 25 mg twice a day, Bactroban 1 g twice a day to affected areas, nicotine patch on hold, vitamin B complex one cap daily, Levophed 4 mg in 250 mL at 15 mL per hour p.r.n., Zofran 4 mg IV push every 6 hours p.r.n., Protonix 40 mg IV push daily, Zosyn 3.375 g in 100 mL at 25 mL per hour, potassium 20 mEq on hold and sodium chloride 1000 mL at 100 mL per hour, propofol 1000 mg in 100 mL at 1.59 mL per hour p.r.n., [place] nasal spray four times a day. LABORATORY DATA: Reviewed. WBC 4.8, RBC 2.9, hemoglobin 8.3, hematocrit 25.7, and platelets 21. PCO2 53, pO2 93, HCO3 of 23.8, ABG pH 7.26, FiO2 of 100. Sodium 156, potassium 4, chloride 123, carbon dioxide 26, anion gap of 11, BUN 40, creatinine 0.8, GFR greater than 60, random glucose 178, calcium 9.3, phosphorus 4.7, magnesium 1.9, total bilirubin 5.1, AST 34, ALT 27, alkaline phosphatase 155, total protein 6.8, albumin 3.1, globulin 3.7, and albumin-globulin ration 0.8. Sputum culture final, no growth. DIAGNOSTIC DATA: Chest x-ray shows diffuse alveolar infiltrate unchanged, endotracheal and nasogastric tube in satisfactory position. IMPRESSION AND PLAN: Myelodysplasia; history of lung cancer requiring lobectomy in the past; thrombocytopenia; sickle cell disease; anemia; chronic lung disease; left upper extremity deep venous thrombosis; alveolar hemorrhage; pneumonia, possibly aspiration pneumonia; respiratory failure, presently on ventilator; multiorgan dysfunction; bone marrow suppression. Pulmonary point of view, continue present ventilator setting. Continue antibiotics per infectious disease. Continue sequential compression devices to bilateral lower extremities. The patient is not currently on chemical prophylaxis or anticoagulation therapy at this time understanding the risk versus benefits of anticoagulation in this patient. Continue inhaled bronchodilators, gastric prophylaxis. The patient has poor prognosis currently, followed by multiple specialities. We will order followup ABGs, chest x-ray, CBC, and CMP in the morning. Critical care time spent more than 35 minutes. This patient was seen and examined with Dr. Maurer. Discussed assessment and plan as described above. This patient was seen and examined with Henry Marquez, nurse practitioner. Discussed assessment and plan as described above. Thank you for this consult. We will follow with you. Henry Marquez APN Solange Maurer MD
--- NOTE | 2018-08-17 12:27 | PN ---
DATE: 08/17/2018 REASON FOR CONSULTATION: Cardiac evaluation, respiratory failure, sepsis, pneumonia, lung CA status post intubated and remains intubated. SUBJECTIVE: The patient remains on vent, sedated. OBJECTIVE: GENERAL: Not in apparent distress. VITAL SIGNS: Temperature afebrile, heart rate 118, and blood pressure 144/61. HEENT: PERRLA; extraocular muscles intact. NECK: Supple. No carotid bruits or thyromegaly. CHEST: Clear to auscultation. HEART: S1 and S2 regular. ABDOMEN: Soft. EXTREMITIES: Clubbing and cyanosis negative. The patient's earlier saturation was low, now PEEP of 10. LABORATORY DATA: Blood workup; WBC 4.8, hemoglobin 8.3, hematocrit 25.7, and platelet count 21. Chemistry shows sodium 156, potassium 4, chloride 123, carbon dioxide 26, anion gap of 11, BUN 14, and creatinine 0.8. IMPRESSION: A 53-year-old female with past medical history significant for leukemia; lung cancer; history of breast carcinoma in the past, status post lumpectomy in 2003, status post lobectomy of lung and post chemotherapy, history of leukemia as well with pancytopenia and severe thrombocytopenia. The patient recently had echocardiogram done, ejection fraction 40% to 45%, admitted with respiratory failure, bilateral pneumonia, sepsis, borderline troponin positive, most likely due to hemodynamic instability, doubt it is a primary cardiac event. The patient still has hypernatremia, severe protein-calorie malnutrition, sepsis, tachycardia and severe thrombocytopenia. RECOMMENDATIONS: Continue antibiotic as per ID. Continue platelet transfusion as per ID. Give the 4 doses of albumin to improve the blood pressure and plasma oncotic pressure. We will put low dose of beta-kendra IV to control the heart rate. Increase free fluid, yesterday started 200 mL, we will give 300 mL every 6 hours, and we will put Lopressor through the NG tube, and also we will start NG feeding. Overall, the patient's condition is critical. Long-term prognosis is guarded. The patient has already started yesterday, we will continue. Increase free fluid to 300 mL an hour. Continue vent management. Mohammad Shivam, MD Psychiatric # [id number]
[2018-08-17] MEDS: Metoprolol 1 mg/ml Inj IVP PRN ×2 (12:59→23:14)
[2018-08-17 13:39] LABS: PHOSPHATIDYLSERINE AB IGG <10 U/mL (<10); PHOSPHATIDYLSERINE AB IGM <25 U/mL (<25)
--- NOTE | 2018-08-17 14:03 | CP.PCM.PN ---
<Scar Bermeo - Last Filed: 08/17/18 14:00> Subjective - Date & Time of Evaluation Date of Evaluation: 08/17/18 Time of Evaluation: 07:50 - Subjective Subjective: Scar Bermeo D.O. PGY-3, Internal Medicine Resident, Infectious Disease Progress Note 53-year-old female with a past medical history of myelodysplastic syndrome status post chemotherapy, lung cancer status post lobectomy, right breast mastec leonard, chronic obstructive pulmonary disease, and endocarditis who presented for platelet transfusion yesterday at the infusion clinic and was found to be febrile with a fever of 101.2. Infectious disease consultation was requested for his fever. Patient was seen and examined in ICU. Continues to be in critical state. Under ICU care. Intubated and sedated. Objective - Vital Signs/Intake and Output Vital Signs (last 24 hours): Temp Pulse Resp BP Pulse Ox 98.6 F 133 H 34 H 174/71 H 100 08/16/18 12:00 08/17/18 12:59 08/17/18 07:39 08/17/18 12:59 08/17/18 07:39 Intake and Output: 08/17/18 08/17/18 06:59 18:59 Intake Total 2100 215 Output Total 1000 Balance 1100 215 - Medications Medications: Current Medications Albumin Human (Albumin Human 25% (12.5 Gm/50 Ml)) 12.5 gm IV Q6H [facility] Stop: 08/17/18 23:59 Last Admin: 08/17/18 12:54 Dose: 12.5 gm Albuterol/Ipratropium (Duoneb 3 Mg/0.5 Mg (3 Ml) Ud) 3 ml IH [id number] PRN PRN Reason: Shortness of Breath Last Admin: 08/12/18 03:00 Dose: 3 ml Albuterol/Ipratropium (Duoneb 3 Mg/0.5 Mg (3 Ml) Ud) 3 ml IH [id number] [facility] Last Admin: 08/17/18 13:31 Dose: 3 ml Amlodipine Besylate (Norvasc) 10 mg PO DAILY [facility] Last Admin: 08/13/18 10:00 Dose: Not Given Budesonide (Pulmicort Respules) 0.5 mg IH BIDRESP [facility] Last Admin: 08/17/18 07:32 Dose: 0.5 mg Clonazepam (Klonopin) 0.5 mg PO BID [facility]; Protocol Last Admin: 08/13/18 12:42 Dose: Not Given Diphenhydramine HCl (Benadryl) 25 mg IVP Q8H PRN PRN Reason: Allergy symptoms Ergocalciferol (Drisdol 50,000 Intl Units Cap) 1 cap PO SUN [facility] Last Admin: 08/12/18 09:24 Dose: 1 cap Hydrocortisone Sodium Succinate (Solu-Cortef) 100 mg IVP Q8 [facility] Propofol (Diprivan) 1,000 mg in 100 mls @ 1.591 mls/hr IV .Q24H PRN; Protocol PRN Reason: TITRATE PER MD ORDER Last Titration: 08/17/18 10:30 Dose: 50 mcg/kg/min, 15.908 mls/hr Doxycycline Hyclate 100 mg/ (Sodium Chloride) 100 mls @ 100 mls/hr IVPB Q12 [facility]; Protocol Stop: 08/20/18 13:31 Last Admin: 08/17/18 09:38 Dose: 100 mls/hr Piperacillin Sod/Tazobactam Sod (Zosyn 3.375 In Ns 100ml) 100 mls @ 25 mls/hr IVPB Q8 [facility]; Protocol Stop: 08/20/18 14:01 Last Admin: 08/17/18 06:30 Dose: 25 mls/hr NOREPINEPHRINE BIT/0.9 % NACL (Levophed 4 Mg/ 250 Ml Ns Premixed) 4 mg in 250 mls @ 15 mls/hr IV .[id number] PRN; Protocol PRN Reason: TITRATE PER MD ORDER Last Titration: 08/16/18 21:27 Dose: Infused Potassium Chloride 20 meq/ (Sodium Chloride) 1,010 mls @ 100 mls/hr IV .Q10H6M [facility] Last Admin: 08/15/18 15:29 Dose: 100 mls/hr Dextrose (Dextrose 5% In Water 1000 Ml) 1,000 mls @ 50 mls/hr IV .Q20H [facility] Last Admin: 08/17/18 09:35 Dose: 50 mls/hr Fentanyl Citrate (Fentanyl Citrate/Sodium Chloride 1 Mg/100 Ml) 1,000 mcg in 100 mls @ 8 mls/hr IV .[id number] PRN; Protocol PRN Reason: TITRATE PER MD ORDER Last Admin: 08/17/18 13:06 Dose: 80 mcg/hr, 8 mls/hr Loratadine (Claritin) 10 mg PO DAILY [facility] Last Admin: 08/13/18 10:00 Dose: Not Given Losartan Potassium (Cozaar) 50 mg PO QPM [facility] Last Admin: 08/13/18 18:14 Dose: Not Given Metoprolol Tartrate (Lopressor) 5 mg IVP Q4H PRN PRN Reason: Heart rate Last Admin: 08/17/18 12:59 Dose: 5 mg Metoprolol Tartrate (Lopressor) 25 mg PO BID [facility] Last Admin: 08/17/18 09:33 Dose: 25 mg Mupirocin (Bactroban Ointment) 1 gm TOP BID [facility] Last Admin: 08/16/18 19:14 Dose: 1 unit Nicotine (Nicoderm Cq) 1 patch TD DAILY [facility] Last Admin: 08/12/18 09:26 Dose: Not Given Non-Formulary Medication (Vitamin B Complex [Super B-50 Complex]) 1 cap PO DAILY [facility] Last Admin: 08/16/18 11:01 Dose: Not Given Ondansetron HCl (Zofran Inj) 4 mg IVP Q6H PRN PRN Reason: Nausea/Vomiting Last Admin: 08/10/18 02:02 Dose: 4 mg Pantoprazole Sodium (Protonix Inj) 40 mg IVP DAILY [facility] Last Admin: 08/17/18 09:33 Dose: 40 mg Sodium Chloride ([place]elia Nasal [place]) 0 ml NS QID [facility] Last Admin: 08/17/18 09:39 Dose: Not Given - Labs Labs: 08/17/18 06:40 08/17/18 06:40 PT 23.1 SECONDS (9.4-12.5) H 08/14/18 17:00 INR 2.08 08/14/18 17:00 APTT 30.6 Seconds (26.9-38.3) 08/13/18 17:10 - Constitutional Appears: Chronically Ill, intubated - Head Exam Head Exam: ATRAUMATIC, NC - Eye Exam Eye Exam: EOMI, PERRL. absent: Scleral icterus - ENT Exam ENT Exam: Mucous Membranes Moist - Neck Exam Neck exam: Positive for: Normal Inspection. Negative for: Lymphadenopathy - Respiratory Exam Respiratory Exam: coarse breath sounds BL - Cardiovascular Exam Cardiovascular Exam: tachycardic, +S1, +S2. absent: Gallop, Rubs - GI/Abdominal Exam GI & Abdominal Exam: mildly tender throughout, soft - Extremities Exam Extremities exam: Negative for: calf tenderness, pedal edema - Neurological Exam Neurological exam: sedated - Skin Skin Exam: Dry, Warm Assessment and Plan - Assessment and Plan (Free Text) Assessment: 53-year-old female with a past medical history of myelodysplastic syndrome status post chemotherapy, lung cancer status post lobectomy, right breast mastectomy, chronic obstructive pulmonary disease, and endocarditis who presented for platelet transfusion yesterday at the infusion clinic and was found to be febrile with a fever of 101.2. Infectious disease consultation was requested for his fever. Plan: New sepsis likely 2/2 HCAP Sepsis likely 2/2 pancolitis LUE DVT 2/2 PICC line DAH Immunocompromise state High-grade myelodysplastic syndrome with thrombocytopenia Lung cancer status post lobectomy Repeat BCx are pending Thus far all bronchoscopic specimens including CMV and fungal studies are all negative Continue doxy/zosyn day 5 GI note reviewed and appreciated Hem/Onc note reviewed and appreciated Prognosis poor We will follow with you Patient was seen and examined and case to be discussed with attending physician Thank you for the pleasure participating in the care of this interesting patient <Terrance Juan - Last Filed: 08/17/18 16:10> Objective - Vital Signs/Intake and Output Vital Signs (last 24 hours): Temp Pulse Resp BP Pulse Ox 98.6 F 127 H 34 H 147/57 L 88 L 08/16/18 12:00 08/17/18 15:30 08/17/18 07:39 08/17/18 15:00 08/17/18 15:30 Intake and Output: 08/17/18 08/17/18 06:59 18:59 Intake Total 2100 300 Output Total 1000 Balance 1100 300 - Medications Medications: Current Medications Albumin Human (Albumin Human 25% (12.5 Gm/50 Ml)) 12.5 gm IV Q6H [facility] Stop: 08/17/18 23:59 Last Admin: 08/17/18 12:54 Dose: 12.5 gm Albuterol/Ipratropium (Duoneb 3 Mg/0.5 Mg (3 Ml) Ud) 3 ml IH [id number] PRN PRN Reason: Shortness of Breath Last Admin: 08/12/18 03:00 Dose: 3 ml Albuterol/Ipratropium (Duoneb 3 Mg/0.5 Mg (3 Ml) Ud) 3 ml IH [id number] [facility] Last Admin: 08/17/18 13:31 Dose: 3 ml Amlodipine Besylate (Norvasc) 10 mg PO DAILY [facility] Last Admin: 08/13/18 10:00 Dose: Not Given Budesonide (Pulmicort Respules) 0.5 mg IH BIDRESP [facility] Last Admin: 08/17/18 07:32 Dose: 0.5 mg Clonazepam (Klonopin) 0.5 mg PO BID [facility]; Protocol Last Admin: 08/13/18 12:42 Dose: Not Given Diphenhydramine HCl (Benadryl) 25 mg IVP Q8H PRN PRN Reason: Allergy symptoms Ergocalciferol (Drisdol 50,000 Intl Units Cap) 1 cap PO SUN [facility] Last Admin: 08/12/18 09:24 Dose: 1 cap Hydrocortisone Sodium Succinate (Solu-Cortef) 100 mg IVP Q8 [facility] Last Admin: 08/17/18 14:25 Dose: 100 mg Propofol (Diprivan) 1,000 mg in 100 mls @ 1.591 mls/hr IV .Q24H PRN; Protocol PRN Reason: TITRATE PER MD ORDER Last Admin: 08/17/18 14:32 Dose: 50 mcg/kg/min, 15.908 mls/hr Doxycycline Hyclate 100 mg/ (Sodium Chloride) 100 mls @ 100 mls/hr IVPB Q12 [facility]; Protocol Stop: 08/20/18 13:31 Last Admin: 08/17/18 09:38 Dose: 100 mls/hr Piperacillin Sod/Tazobactam Sod (Zosyn 3.375 In Ns 100ml) 100 mls @ 25 mls/hr IVPB Q8 [facility]; Protocol Stop: 08/20/18 14:01 Last Admin: 08/17/18 14:26 Dose: 25 mls/hr NOREPINEPHRINE BIT/0.9 % NACL (Levophed 4 Mg/ 250 Ml Ns Premixed) 4 mg in 250 mls @ 15 mls/hr IV .[id number] PRN; Protocol PRN Reason: TITRATE PER MD ORDER Last Titration: 08/16/18 21:27 Dose: Infused Potassium Chloride 20 meq/ (Sodium Chloride) 1,010 mls @ 100 mls/hr IV .Q10H6M [facility] Last Admin: 08/15/18 15:29 Dose: 100 mls/hr Dextrose (Dextrose 5% In Water 1000 Ml) 1,000 mls @ 50 mls/hr IV .Q20H [facility] Last Admin: 08/17/18 09:35 Dose: 50 mls/hr Fentanyl Citrate (Fentanyl Citrate/Sodium Chloride 1 Mg/100 Ml) 1,000 mcg in 100 mls @ 8 mls/hr IV .[id number] PRN; Protocol PRN Reason: TITRATE PER MD ORDER Last Admin: 08/17/18 13:06 Dose: 80 mcg/hr, 8 mls/hr Loratadine (Claritin) 10 mg PO DAILY [facility] Last Admin: 08/13/18 10:00 Dose: Not Given Losartan Potassium (Cozaar) 50 mg PO QPM [facility] Last Admin: 08/13/18 18:14 Dose: Not Given Metoprolol Tartrate (Lopressor) 5 mg IVP Q4H PRN PRN Reason: Heart rate Last Admin: 08/17/18 12:59 Dose: 5 mg Metoprolol Tartrate (Lopressor) 25 mg PO BID [facility] Last Admin: 08/17/18 09:33 Dose: 25 mg Mupirocin (Bactroban Ointment) 1 gm TOP BID [facility] Last Admin: 08/16/18 19:14 Dose: 1 unit Nicotine (Nicoderm Cq) 1 patch TD DAILY [facility] Last Admin: 08/12/18 09:26 Dose: Not Given Non-Formulary Medication (Vitamin B Complex [Super B-50 Complex]) 1 cap PO DAILY [facility] Last Admin: 08/16/18 11:01 Dose: Not Given Ondansetron HCl (Zofran Inj) 4 mg IVP Q6H PRN PRN Reason: Nausea/Vomiting Last Admin: 08/10/18 02:02 Dose: 4 mg Pantoprazole Sodium (Protonix Inj) 40 mg IVP DAILY [facility] Last Admin: 08/17/18 09:33 Dose: 40 mg Sodium Chloride (Amelia Nasal [place]) 0 ml NS QID [facility] Last Admin: 08/17/18 09:39 Dose: Not Given - Labs Labs: 08/17/18 06:40 08/17/18 06:40 PT 23.1 SECONDS (9.4-12.5) H 08/14/18 17:00 INR 2.08 08/14/18 17:00 APTT 30.6 Seconds (26.9-38.3) 08/13/18 17:10 Attending/Attestation - Attestation I have personally seen and examined this patient.: Yes I have fully participated in the care of the patient.: Yes I have reviewed all pertinent clinical information, including history, physical exam and plan: Yes Notes (Text): 08/17/18 16:08 start mepron
[2018-08-17 14:59] LABS: B2 GLYCOPROTEIN I AB(IGA) <9 SAU (<=20); B2 GLYCOPROTEIN I AB(IGG) <9 SGU (<=20); B2 GLYCOPROTEIN I AB(IGM) <9 SMU (<=20)
--- NOTE | 2018-08-17 15:18 | PN ---
DATE: 08/16/2018 SUBJECTIVE: The patient was seen in the ICU, critically sick. She remains in heavy sedation and IV Crestor and norepinephrine. No respiratory distress. PHYSICAL EXAMINATION: VITAL SIGNS: Temperature is 101.3, heart rate 104, blood pressure 137/69, saturating 100% on FiO2. HEAD AND NECK: No JVD. CHEST: Diminished breath sounds. CARDIAC: First and second sounds normal. Tachycardic. ABDOMEN: Soft, nontender. EXTREMITIES: No edema. NEUROLOGIC: The patient is sedated, unresponsive. LABORATORY DATA: On 08/16/2018, her white count is 5.7, hemoglobin 9.1, hematocrit 27.9, platelets 14,000. Her chemistry noted for sodium 153, potassium 4.4, chloride 123, bicarbonate 22, BUN 39, creatinine 1, blood glucose 178, calcium 8.7. IMPRESSION AND PLAN: 1. Acute respiratory failure secondary to aspiration pneumonia, sepsis, continue vent support. The patient also had underlying severe chronic obstructive pulmonary disease with large bullae in both lungs and will continue vent support. 2. Severe sepsis. Continue intravenous antibiotics. She is getting Zosyn. She is getting vancomycin and doxycycline. Will follow up with Infectious Disease consult. 3. Severe myelodysplasia with severe thrombocytopenia. Continue current treatment as per Oncology. 4. Left arm deep vein thrombosis, she is on Lovenox. 5. Continue supportive care for now. The patient has poor prognosis, continue comfort care. She is sedated on propofol and Fentanyl. Continue blood pressure support of norepinephrine 4 mg and she is getting 4 mcg per minute. Continue current therapy; discussed with her daughter and her family. The patient has poor prognosis. She is a Do Not Resuscitate. August Lara MD
[2018-08-17 15:20] LABS: CARDIOLIPIN AB (IGM) <12 MPL (<=12); PHOSPHATIDYLSERINE AB IGA <20 U/mL (<20)
--- NOTE | 2018-08-17 16:49 | CON ---
DATE OF CONSULTATION: 08/17/2018 HISTORY OF PRESENT ILLNESS: The patient is a 53-year-old female sent by Dr. Lopez to the emergency room because of a low platelet count and afebrile state. She has a history of breast and lung cancer as well as a pneumothorax. She is also being treated for acute myeloid leukemia at [facility]. She had a recent septic episode 2 weeks ago and was in the ICU, treated with antibiotics with an improvement in her general status as well as associated thrombocytopenia. She did received multiple platelet transfusions. She came back down to a fever of 102. The patient reportedly has a history of depression, but she is presently intubated, and I am unable to get a meaningful history from her. I have reviewed her chart and discussed the case with nursing. She is receiving Benadryl p.r.n., Klonopin 0.5 mg b.i.d. The patient has at least one daughter, but her phone number was disconnected according to social work. She has been associated with visiting nurses. The patient is considered a candidate for LTACH versus CARMEN. Her daughter is reportedly not willing to withdraw her care or internally extubate the patient at this time. Lm Mclaughlin MD/ PhD
[2018-08-17 17:19] LABS: ALB/GLOB RATIO 0.7 (1.1-1.8); ALBUMIN 2.6 g/dL (3.0-4.8); ALT/SGPT 20 U/L (7-56); AST/SGOT 30 U/L (14-36); BLOOD UREA NITROGEN 38 mg/dL (7-21); CALCIUM 8.9 mg/dL (8.4-10.5); GFR NON-AFRICAN AMERICAN > 60
[2018-08-17] MEDS: Atovaquone 750 mg/5 ml Susp UD PO SCH (17:36)
[2018-08-17] MEDS: Non Formulary Medication (Vitamin B Complex [Super B-50 Complex] 1 CAP) PO SCH (17:39)
--- NOTE | 2018-08-17 20:25 | PN ---
DATE: 08/17/2018 SUBJECTIVE: The patient is seen in the ICU. She is sedated. She remains on mechanical ventilation. She is on a propofol drip. She is also on a fentanyl drip. She appears to be swollen. Appears to have some anasarca. PHYSICAL EXAMINATION: GENERAL: Middle-aged lady lying in bed in the ICU on mechanical ventilation. VITAL SIGNS: Blood pressure 147/57, heart rate 126, respiratory rate 24-34, temperature 98.6, and T-max is 100.9. HEENT: Normocephalic and atraumatic. Positive pallor. NECK: Supple. No JVD. LUNGS: Bilaterally equal air entry, bilateral equal expansion. No rales appreciated anteriorly. CARDIAC: S1 and S2, regular rate and rhythm. No murmur. No rub. ABDOMEN: Obese, distended, soft, and nontender. Bowel sounds present. EXTREMITIES: 2+ pitting edema of the lower extremities. INTAKE AND OUTPUT: 2200/1000. LABORATORY DATA: WBC 4.8, hemoglobin 8.3, hematocrit 26, and platelets 21. Manual count 23. Sodium 156, potassium 4, chloride 123, CO2 of 26, BUN 40, creatinine 0.8, glucose 178, calcium 9.3, phosphorus 4.7, magnesium 1.9, and total bili 5.1. Cultures negative. Status post platelet transfusion yesterday. CURRENT MEDICATIONS: Albumin 12.5 g every 6 hours, Benadryl 25 IV every 8 hours p.r.n., losartan on hold, dextrose 5% at 50 mL/hour started this morning, Diprivan 50 mcg/kilogram/minute, doxycycline 100 every 12 hours, Drisdol 50,000 units once a week, DuoNeb, fentanyl 80 mcg per hour, Klonopin 0.5 b.i.d. on hold, Lopressor 5 mg IV push every 4 hours p.r.n., Lopressor 25 p.o. b.i.d., amlodipine 10 on hold, Protonix 40 IV daily, Solu-Cortef 100 IV every 8 hours, Zofran, and Zosyn 3.375 every 8 hours. ASSESSMENT: 1. Accelerated myelodysplastic syndrome. 2. History of lung cancer, history of lobectomy. 3. History of breast cancer, mastectomy. 4. Chronic obstructive pulmonary disease. 5. History of endocarditis. 6. Severe pneumonia, bilateral pneumonia, respiratory failure. 7. Severe sepsis, ?pancolitis. 8. Severe hypokalemia, resolved. 9. Severe hypernatremia, worsening sodium levels. 10. Anasarca. PLAN: 1. Increase free water via NG tube to 300 mL every 4 hours. 2. Caution not to give too much IV fluid, the patient is already swollen. 3. Continue antibiotics as per ID recommendations. 4. Continue respiratory treatments. 5. Continue stress dose steroids. 6. Case discussed with Dr. Juan at length, PCP not likely since cultures from bronchoscopy are negative. Case discussed with ICU nursing staff. Case discussed with ICU residents. More than 35 minutes were spent in the care of this critically ill patient. Overall prognosis is grim. Tri Orellana MD
[2018-08-17 22:07] LABS: ANCA SCREEN NEGATIVE (NEGATIVE)
[2018-08-18] MEDS: Albumin Human 25% (12.5 gm/50 ml) IV SCH
[2018-08-18] MEDS: Albuterol-Ipratrop 3 mg / 0.5 (3 ml) UD IH SCH ×4 (01:20→19:24)
[2018-08-18] MEDS: Propofol 10 mg/ml 1,000 MG/100 ML VIAL IV PRN ×6 (01:35→22:50)
[2018-08-18] MEDS: Piperacillin/Tazobact 3.375 gm 100 ML IVPB SCH ×3 (05:03→21:14)
[2018-08-18 06:22] LABS: BASO # 0.07 K/mm3 (0.0-2.0); BASO % 0.6 % (0.0-3.0); MEAN CELL VOLUME 90.9 fl (80.0-105.0); MEAN CORPUSCULAR HEMOGLOBIN 29.5 pg (25.0-35.0); MEAN CORPUSCULAR HGB CONC 32.5 g/dl (31.0-37.0); RED CELL DISTRIBUTION WIDTH 19.3 % (11.5-14.5); WHITE BLOOD COUNT 12.4 10^3/uL (4.5-11.0)
[2018-08-18 06:28] LABS: HEMOGLOBIN 6.5 g/dL (12.0-16.0); PLATELET COUNT 7 10^3/uL (120.0-450.0)
[2018-08-18 06:33] LABS: ALB/GLOB RATIO 0.9 (1.1-1.8); ALBUMIN 2.7 g/dL (3.0-4.8); ALT/SGPT 18 U/L (7-56); AST/SGOT 27 U/L (14-36); BLOOD UREA NITROGEN 40 mg/dL (7-21); CALCIUM 8.7 mg/dL (8.4-10.5); GFR NON-AFRICAN AMERICAN 58
[2018-08-18 06:39] LABS: MEAN CELL VOLUME 90.5 fl (80.0-105.0); MEAN CORPUSCULAR HEMOGLOBIN 30.5 pg (25.0-35.0); MEAN CORPUSCULAR HGB CONC 33.7 g/dl (31.0-37.0); RED CELL DISTRIBUTION WIDTH 19.4 % (11.5-14.5); WHITE BLOOD COUNT 12.3 10^3/uL (4.5-11.0)
[2018-08-18 06:42] LABS: HEMOGLOBIN 6.7 g/dL (12.0-16.0)
[2018-08-18 06:43] LABS: PLATELET COUNT 13 10^3/uL (120.0-450.0)
[2018-08-18 06:46] LABS: ARTERIAL BLOOD GAS HCO3 23.5 mmol/L (21-28); ARTERIAL BLOOD GAS O2 CAPACITY 9.4 mL/dl (16-24); ARTERIAL BLOOD GAS O2 CONTENT 8.5 ML/dl (15-23); ARTERIAL BLOOD GAS PCO2 74 mm/Hg (35-45); ARTERIAL BLOOD GAS PH 7.11 (7.35-7.45); ARTERIAL BLOOD GAS TCO2 25.8 mmol.L (22-28)
[2018-08-18] MEDS: Budesonide 0.5 mg/2 ml Inhal Susp UD IH SCH ×2 (08:08→19:24)
[2018-08-18 08:33] LABS: PLATELET COUNT MANUAL 9 K/mm3 (120-450)
[2018-08-18] MEDS: Fentanyl 1000mcg/100ml NS 1,000 MCG/100 ML BAG IV PRN ×2 (08:44→20:31)
[2018-08-18] MEDS: Atovaquone 750 mg/5 ml Susp UD PO SCH ×2 (09:39→17:41)
[2018-08-18] MEDS: Mupirocin 2% Ointment 15 GM TUBE TOP SCH ×2 (09:41→17:41)
--- NOTE | 2018-08-18 09:49 | RAD ---
HISTORY: follow up infiltrate COMPARISON: Chest x-ray performed 08/17/18 TECHNIQUE: Chest, one view. FINDINGS: LUNGS: Diffuse alveolar infiltrate unchanged. Endotracheal and nasogastric tube. Please note that chest x-ray has limited sensitivity for the detection of pulmonary masses. PLEURA: No significant pleural effusion identified. No definite pneumothorax . CARDIOVASCULAR: Partially obscured cardiomegaly. OSSEOUS STRUCTURES: Degenerative changes. VISUALIZED UPPER ABDOMEN: Unremarkable. OTHER FINDINGS: None. IMPRESSION: Diffuse alveolar infiltrate persists. Endotracheal and nasogastric tubes.
--- NOTE | 2018-08-18 10:12 | PN ---
DATE: 08/18/2018 PULMONARY PROGRESS NOTE REFERRING PHYSICIAN: August Lara MD SUBJECTIVE: The patient is lying in bed, remains intubated, sedated, on propofol and fentanyl patch. The patient is scheduled for blood transfusion today due to hemoglobin 6.7. No hemoptysis, hematemesis, hematuria or diarrhea reported. OBJECTIVE: VITAL SIGNS: Blood pressure 106/47, pulse 114, temperature 99, oxygen saturation 96. HEENT: Nasogastric tube, endotracheal tube in place. Moist mucous membranes. RESPIRATORY: Decreased breath sounds at the bases. Scattered rhonchi, bilaterally, few. CARDIOVASCULAR: S1, S2, tachycardic. ABDOMEN: Soft, no distention. EXTREMITIES: +1 bilateral lower extremity edema. Left upper extremity edema. NEUROLOGIC: Intubated, sedated. MEDICATIONS: Reviewed. DuoNeb 3 mL every 4 hours p.r.n., DuoNeb 3 mL inhalation every 6 hours, Norvasc 10 mg daily, Mepron 750 mg twice a day, Pulmicort 3.5 mg solution twice a day, Klonopin 0.5 mg twice a day, Benadryl 25 mg IV push every 8 hours p.r.n., doxycycline 100 mg every 12 hours, ergocalciferol 50,000 units weekly, fentanyl 1000 mcg in 100 mL at 8 mL per hour, Solu-Cortef 100 mg IV push every 8 hours, metoprolol tartrate 5 mg IV push every 4 hours p.r.n., metoprolol tartrate 25 mg twice a day, Bactroban topically twice a day to affected area, vitamin B complex 1 cap p.o. daily, Levophed 4 mg in 250 mL at 15 mL per hour p.r.n., Zofran 4 mg IV push every 6 hours p.r.n., Protonix 40 mg IV push daily, Zosyn 3.375 g in 100 mL at 25 mL per hour every 8 hours, propofol 1000 mg in 100 mL at 1.59 mL per hour, [place] nasal spray 4 times a day. LABORATORY DATA: Reviewed. WBC 12.3, RBC 2.2, hemoglobin 6.7, hematocrit 19.9, platelets 13. PCO2 of 74, pO2 53, HCO3 of 23.5. ABG: pH 7.11, FIO2 of 100. Sodium 154, potassium 4.1, chloride 121, carbon dioxide 24, anion gap 14, BUN 40, creatinine 1, GFR greater than 60, random glucose 230, calcium 8.7, phosphorus 6, magnesium 1.7, total bilirubin 6.1, AST 27, ALT 18, alkaline phosphatase 127, total protein 5.8, albumin 2.7, globulin 3.1, albumin-globulin ratio 0.9. Blood cultures preliminary no growth up to 24 hours. Chest x-ray report pending. IMPRESSION AND PLAN: Myelodysplasia, history of lung cancer requiring lobectomy in the past, thrombocytopenia, sickle cell disease, anemia, left upper extremity deep venous thrombosis, chronic lung disease, alveolar hemorrhage, pneumonia, possibly aspiration pneumonia, respiratory failure, presently on ventilator, multiorgan dysfunction, bone marrow suppression. Pulmonary point of view, continue antibiotic therapy. Continue present ventilator setting. Continue inhaled bronchodilators, gastric prophylaxis. Continue sequential compression devices to bilateral lower extremities. The patient is not currently on chemical prophylaxis or anticoagulation therapy. At this time, understanding the risks versus benefits, as the patient is presently anemic and has thrombocytopenia, the patient followed by multiple specialities. Continue supportive care, Hematology-Oncology followup. We will order ABG, chest x-ray, CBC, CMP in the morning. Critical care time spent more than 35 minutes. This patient seen and examined with Dr. Maurer. Discussed assessment and plan as described above. This patient seen and examined with Henry Marquez, nurse practitioner. Discussed assessment and plan as described above. Thank you for this consult. We will follow with you. Henry Marquez APN Solange Maurer MD
--- NOTE | 2018-08-18 10:36 | PN ---
DATE: 08/18/2018 SUBJECTIVE: The patient is sedated on the ventilator on 100% FIO2. She is getting enteral feedings via NG tube, tolerating well. The patient has family at bedside. She does have generalized swelling and anasarca. She is also on a fentanyl drip as well. PHYSICAL EXAMINATION: VITAL SIGNS: Her temperature is 97.5, pulse is 110, respirations are 20 and BP is 128/34. SKIN: Warm and dry. HEENT: Head is atraumatic, normocephalic. Eyes reactive to light. Ears, nose and throat seem to be within normal limits. NECK: Supple. No JVD. No thyroid enlargement, no lymph nodes. HEART: Has regular rate and rhythm. Normal S1 and S2, but tachycardic. LUNGS: Reveal bilateral rhonchi. ABDOMEN: Soft. Slightly distended. Decreased bowel sounds. GENITALIA AND RECTAL: Deferred. MUSCULOSKELETAL: No joint deformities. EXTREMITIES: Reveal positive edema in upper and lower extremities. NEUROLOGICALLY: She is sedated on the ventilator. LABORATORY DATA: As far as her laboratories are concerned, her white count is 12.3, hemoglobin is 6.7, hematocrit 19.9 with platelets of 13,000. Arterial blood gas reveals a pH of 7.11, pCO2 of 74, pO2 of 53. The patient's sodium is 154, potassium 4.1, chloride 121 with a CO2 of 24, BUN of 40, creatinine of 1 and a glucose of 230. The patient's chest x-ray reveals bilateral infiltrates, left more severe than right. This is an unofficial reading. IMPRESSION: This patient has respiratory failure with bilateral pneumonia, hypercapnic and hypoxic on the ventilator. The patient has accelerated myelodysplastic syndrome. She has a history of lung carcinoma as well breast carcinoma and chronic obstructive pulmonary disease. The patient has sepsis, pancolitis, anemia, thrombocytopenia, hypernatremia. PLAN: We will continue with the ventilator support and decrease the FIO2 as tolerated. The patient will continue with aggressive pulmonary toilet. Note that she is a DNR at this time. The patient will continue with IV fluids. The patient is getting doxycycline, DuoNeb, fentanyl, Lopressor, Mepron, norepinephrine, propofol, Protonix, Pulmicort, Solu-Cortef and Zosyn. We will continue to treat aggressively along with the other it architecture consultant and the primary care doctor. Randolph Rao MD
[2018-08-18] MEDS: Non Formulary Medication (Vitamin B Complex [Super B-50 Complex] 1 CAP) PO SCH (10:40)
--- NOTE | 2018-08-18 11:25 | CP.PCM.PN ---
Subjective - Date & Time of Evaluation Date of Evaluation: 08/18/18 Time of Evaluation: 09:40 - Subjective Subjective: Patient is still on the ventilator, no fevers overnight. Objective - Vital Signs/Intake and Output Vital Signs (last 24 hours): Temp Pulse Resp BP Pulse Ox 97.5 F L 110 H 34 H 128/34 L 90 L 08/18/18 04:00 08/18/18 06:30 08/17/18 07:39 08/18/18 06:00 08/18/18 06:30 Intake and Output: 08/18/18 08/18/18 06:59 18:59 Intake Total 1312 Output Total 1550 Balance -238 - Medications Medications: Current Medications Albuterol/Ipratropium (Duoneb 3 Mg/0.5 Mg (3 Ml) Ud) 3 ml IH [id number] PRN PRN Reason: Shortness of Breath Last Admin: 08/12/18 03:00 Dose: 3 ml Albuterol/Ipratropium (Duoneb 3 Mg/0.5 Mg (3 Ml) Ud) 3 ml IH [id number] [facility] Last Admin: 08/18/18 01:20 Dose: 3 ml Amlodipine Besylate (Norvasc) 10 mg PO DAILY [facility] Last Admin: 08/13/18 10:00 Dose: Not Given Atovaquone (Mepron) 750 mg PO BID [facility]; Protocol Last Admin: 08/17/18 17:36 Dose: 750 mg Budesonide (Pulmicort Respules) 0.5 mg IH BIDRESP [facility] Last Admin: 08/17/18 20:00 Dose: 0.5 mg Clonazepam (Klonopin) 0.5 mg PO BID [facility]; Protocol Last Admin: 08/13/18 12:42 Dose: Not Given Diphenhydramine HCl (Benadryl) 25 mg IVP Q8H PRN PRN Reason: Allergy symptoms Ergocalciferol (Drisdol 50,000 Intl Units Cap) 1 cap PO SUN [facility] Last Admin: 08/12/18 09:24 Dose: 1 cap Hydrocortisone Sodium Succinate (Solu-Cortef) 100 mg IVP Q8 [facility] Last Admin: 08/18/18 05:03 Dose: 100 mg Propofol (Diprivan) 1,000 mg in 100 mls @ 1.591 mls/hr IV .Q24H PRN; Protocol PRN Reason: TITRATE PER MD ORDER Last Admin: 08/18/18 06:22 Dose: 50 mcg/kg/min, 15.908 mls/hr Doxycycline Hyclate 100 mg/ (Sodium Chloride) 100 mls @ 100 mls/hr IVPB Q12 [facility]; Protocol Stop: 08/20/18 13:31 Last Admin: 08/17/18 21:26 Dose: 100 mls/hr Piperacillin Sod/Tazobactam Sod (Zosyn 3.375 In Ns 100ml) 100 mls @ 25 mls/hr IVPB Q8 [facility]; Protocol Stop: 08/20/18 14:01 Last Admin: 08/18/18 05:03 Dose: 25 mls/hr NOREPINEPHRINE BIT/0.9 % NACL (Levophed 4 Mg/ 250 Ml Ns Premixed) 4 mg in 250 mls @ 15 mls/hr IV .[id number] PRN; Protocol PRN Reason: TITRATE PER MD ORDER Last Titration: 08/16/18 21:27 Dose: Infused Potassium Chloride 20 meq/ (Sodium Chloride) 1,010 mls @ 100 mls/hr IV .[id number] [facility] Last Admin: 08/15/18 15:29 Dose: 100 mls/hr Dextrose (Dextrose 5% In Water 1000 Ml) 1,000 mls @ 50 mls/hr IV .Q20H [facility] Last Admin: 08/17/18 09:35 Dose: 50 mls/hr Fentanyl Citrate (Fentanyl Citrate/Sodium Chloride 1 Mg/100 Ml) 1,000 mcg in 100 mls @ 8 mls/hr IV .[id number] PRN; Protocol PRN Reason: TITRATE PER MD ORDER Last Admin: 08/17/18 20:55 Dose: 80 mcg/hr, 8 mls/hr Loratadine (Claritin) 10 mg PO DAILY [facility] Last Admin: 08/13/18 10:00 Dose: Not Given Losartan Potassium (Cozaar) 50 mg PO QPM [facility] Last Admin: 08/13/18 18:14 Dose: Not Given Metoprolol Tartrate (Lopressor) 5 mg IVP Q4H PRN PRN Reason: Heart rate Last Admin: 08/17/18 23:14 Dose: 5 mg Metoprolol Tartrate (Lopressor) 25 mg PO BID [facility] Last Admin: 08/17/18 17:38 Dose: 25 mg Mupirocin (Bactroban Ointment) 1 gm TOP BID [facility] Last Admin: 08/17/18 17:37 Dose: 1 unit Nicotine (Nicoderm Cq) 1 patch TD DAILY [facility] Last Admin: 08/12/18 09:26 Dose: Not Given Non-Formulary Medication (Vitamin B Complex [Super B-50 Complex]) 1 cap PO DAILY [facility] Last Admin: 08/17/18 17:39 Dose: Not Given Ondansetron HCl (Zofran Inj) 4 mg IVP Q6H PRN PRN Reason: Nausea/Vomiting Last Admin: 08/10/18 02:02 Dose: 4 mg Pantoprazole Sodium (Protonix Inj) 40 mg IVP DAILY [facility] Last Admin: 08/17/18 09:33 Dose: 40 mg Sodium Chloride ([place] Nasal [place]) 0 ml NS QID [facility] Last Admin: 08/17/18 21:29 Dose: 2 sprays - Labs Labs: 08/18/18 06:35 08/18/18 06:00 PT 23.1 SECONDS (9.4-12.5) H 08/14/18 17:00 INR 2.08 08/14/18 17:00 APTT 30.6 Seconds (26.9-38.3) 08/13/18 17:10 - Constitutional Appears: Other (intubated, sedated) - Head Exam Head Exam: NORMAL INSPECTION - ENT Exam Additional comments: ET tube in place - Respiratory Exam Respiratory Exam: Decreased Breath Sounds - Cardiovascular Exam Cardiovascular Exam: +S1, +S2 - GI/Abdominal Exam GI & Abdominal Exam: Soft. absent: Tenderness Assessment and Plan - Assessment and Plan (Free Text) Plan: Assessment New onset sepsis with VDRF due to HCAP R/O pnuemocystis, on top of pancolitis, in this patient with myelodysplastic syndrome MD on chemotherapy lung cancer S/P lobectomy S/P right breast mastectomy COPD history of endocarditis Plan continue Doxycycline and Zosyn day 6 and Mepron day 2; noted indeterminate levels of B-D glucan cultures have been negative, including BAL overall prognosis is poor
--- NOTE | 2018-08-18 12:10 | PN ---
DATE: 08/18/2018 LOCATION: The patient in room in ICU 128, bed 1. REASON FOR CONSULTATION AND FOLLOWUP: Cardiac evaluation, respiratory failure, sepsis, pneumonia, lung CA, status post intubation remains intubated and sinus tachycardiac. SUBJECTIVE: The patient still on ventilator and need continues ventilator support. OBJECTIVE: VITAL SIGNS: Blood pressure 106/47, the patient is on respiratory, heart rate of 113 per minute and temperature 98. HEENT: Head is normocephalic. Eyes; pupils normal. Conjunctivae pale. NECK: JVP low. Carotid equal. THORAX: AP diameter normal. LUNGS: Fine rales right lower lung. CARDIOVASCULAR: S1 and S2. ABDOMEN: Soft. Bowel sound normal. EXTREMITIES: No clubbing. No cyanosis. LABORATORY DATA: WBC 12.3, hemoglobin 6.7, hematocrit 19.9 and platelet 13. Sodium 154, potassium 4.1, BUN 40, creatinine 1.0, total protein 5.8, albumin 2.7, calcium 8.7, phosphorous 6.0, magnesium 1.7 and total bilirubin 6.1. Chest x-ray on 08/17/2018 shows few alveolar infiltrate unchanged. DIAGNOSES: Sinus tachycardia due to underlying sepsis on pulmonary status, lung cancer, leukemia, myelodysplasia, history of breast carcinoma in the past, status post lobectomy for lung cancer on chemotherapy, pancytopenia, severe thrombocytopenia. Recent echo showed ejection 40%-45% and respiratory failure, bilateral pneumonia, sepsis, borderline troponin positive, most likely due to hemodynamic stability, hypernatremia, protein-calorie malnutrition sepsis, severe anemia, elevated BUN and sodium of 134 suggest of hemoconcentration. PLAN: Continue antibiotic. Continue platelet . The patient may need blood transfusion because the hemoglobin is very low. Continue beta-kendra to control the heart rate. Continue water injection through feeding tube 300 mL every 6 hours. The patient is not in a shape for any cardiac intervention, so we will continue present therapy. I will continue to follow closely with you. The patient continued to be in critical state. Prognosis is poor. We will follow with you closely and we will continue to monitor the patient. Solange Escobar MD [facility] # [id number]
--- NOTE | 2018-08-18 13:39 | CP.PCM.PN ---
<Alejandro Suarez - Last Filed: 08/18/18 13:43> Subjective - Date & Time of Evaluation Date of Evaluation: 08/18/18 Time of Evaluation: 13:34 - Subjective Subjective: Intubated, sedated. Started on Mepron. Also, on multiple antibiotics as well as IV steroids. Objective - Vital Signs/Intake and Output Vital Signs (last 24 hours): Temp Pulse Resp BP Pulse Ox 98 F 115 H 34 H 106/48 L 90 L 08/18/18 08:00 08/18/18 10:30 08/18/18 08:00 08/18/18 10:00 08/18/18 10:30 Intake and Output: 08/18/18 08/18/18 06:59 18:59 Intake Total 1312 300 Output Total 1550 Balance -238 300 - Medications Medications: Current Medications Albuterol/Ipratropium (Duoneb 3 Mg/0.5 Mg (3 Ml) Ud) 3 ml IH [id number] PRN PRN Reason: Shortness of Breath Last Admin: 08/12/18 03:00 Dose: 3 ml Albuterol/Ipratropium (Duoneb 3 Mg/0.5 Mg (3 Ml) Ud) 3 ml IH [id number] [facility] Last Admin: 08/18/18 08:08 Dose: 3 ml Amlodipine Besylate (Norvasc) 10 mg PO DAILY [facility] Last Admin: 08/13/18 10:00 Dose: Not Given Atovaquone (Mepron) 750 mg PO BID [facility]; Protocol Last Admin: 08/18/18 09:39 Dose: 750 mg Budesonide (Pulmicort Respules) 0.5 mg IH BIDRESP COUNT INCLUDES [facility] Last Admin: 08/18/18 08:08 Dose: 0.5 mg Clonazepam (Klonopin) 0.5 mg PO BID [facility]; Protocol Last Admin: 08/13/18 12:42 Dose: Not Given Diphenhydramine HCl (Benadryl) 25 mg IVP Q8H PRN PRN Reason: Allergy symptoms Ergocalciferol (Drisdol 50,000 Intl Units Cap) 1 cap PO SUN COUNT INCLUDES [facility] Last Admin: 08/12/18 09:24 Dose: 1 cap Hydrocortisone Sodium Succinate (Solu-Cortef) 100 mg IVP Q8 [facility] Last Admin: 08/18/18 13:12 Dose: 100 mg Propofol (Diprivan) 1,000 mg in 100 mls @ 1.591 mls/hr IV .Q24H PRN; Protocol PRN Reason: TITRATE PER MD ORDER Last Admin: 08/18/18 13:10 Dose: 50 mcg/kg/min, 15.908 mls/hr Doxycycline Hyclate 100 mg/ (Sodium Chloride) 100 mls @ 100 mls/hr IVPB Q12 [facility]; Protocol Stop: 08/20/18 13:31 Last Admin: 08/18/18 10:24 Dose: 100 mls/hr Piperacillin Sod/Tazobactam Sod (Zosyn 3.375 In Ns 100ml) 100 mls @ 25 mls/hr IVPB Q8 [facility]; Protocol Stop: 08/20/18 14:01 Last Admin: 08/18/18 13:12 Dose: 25 mls/hr NOREPINEPHRINE BIT/0.9 % NACL (Levophed 4 Mg/ 250 Ml Ns Premixed) 4 mg in 250 mls @ 15 mls/hr IV .[id number] PRN; Protocol PRN Reason: TITRATE PER MD ORDER Last Titration: 08/16/18 21:27 Dose: Infused Potassium Chloride 20 meq/ (Sodium Chloride) 1,010 mls @ 100 mls/hr IV .Q10H6M [facility] Last Admin: 08/15/18 15:29 Dose: 100 mls/hr Dextrose (Dextrose 5% In Water 1000 Ml) 1,000 mls @ 50 mls/hr IV .Q20H [facility] Last Admin: 08/18/18 08:40 Dose: 50 mls/hr Fentanyl Citrate (Fentanyl Citrate/Sodium Chloride 1 Mg/100 Ml) 1,000 mcg in 100 mls @ 8 mls/hr IV .[id number] PRN; Protocol PRN Reason: TITRATE PER MD ORDER Last Admin: 08/18/18 08:44 Dose: 80 mcg/hr, 8 mls/hr Loratadine (Claritin) 10 mg PO DAILY [facility]CLUD[facility] Last Admin: 08/13/18 10:00 Dose: Not Given Losartan Potassium (Cozaar) 50 mg PO QPM COUNT [facility]CLUD[facility] Last Admin: 08/13/18 18:14 Dose: Not Given Metoprolol Tartrate (Lopressor) 5 mg IVP Q4H PRN PRN Reason: Heart rate Last Admin: 08/17/18 23:14 Dose: 5 mg Metoprolol Tartrate (Lopressor) 25 mg PO BID [facility] Last Admin: 08/18/18 09:39 Dose: 25 mg Mupirocin (Bactroban Ointment) 1 gm TOP BID [facility]CLUD[facility] Last Admin: 08/18/18 09:41 Dose: 1 applic Nicotine (Nicoderm Cq) 1 patch TD DAILY [facility]CLUD[facility] Last Admin: 08/12/18 09:26 Dose: Not Given Non-Formulary Medication (Vitamin B Complex [Super B-50 Complex]) 1 cap PO DAILY COUNT [facility]CLUD[facility] Last Admin: 08/18/18 10:40 Dose: Not Given Ondansetron HCl (Zofran Inj) 4 mg IVP Q6H PRN PRN Reason: Nausea/Vomiting Last Admin: 08/10/18 02:02 Dose: 4 mg Pantoprazole Sodium (Protonix Inj) 40 mg IVP DAILY [facility]CLUD[facility] Last Admin: 08/18/18 09:39 Dose: 40 mg Sodium Chloride ([place] Nasal [place]) 0 ml NS QID COUNT [facility]CLUDES [facility] Last Admin: 08/18/18 13:11 Dose: 1 sprays - Labs Labs: 08/18/18 06:35 08/18/18 06:00 PT 23.1 SECONDS (9.4-12.5) H 08/14/18 17:00 INR 2.08 08/14/18 17:00 APTT 30.6 Seconds (26.9-38.3) 08/13/18 17:10 - Constitutional Appears: No Acute Distress, Chronically Ill - Respiratory Exam Additional comments: Intubated - GI/Abdominal Exam GI & Abdominal Exam: Distended - Neurological Exam Neurological Exam: Altered Additional comments: sedated Assessment and Plan - Assessment and Plan (Free Text) Assessment: 53 year old female with a PMH of MDS (high grade, s/p chemotherapy), immunosuppression, lung cancer (s/p lobectomy, 2017), breast cancer s/p R breast mastectomy (2004), COPD, and endocarditis who is admitted for fevers. CT abd showed pancolitis, cdiff was negative for toxin x2. V/Q scan showed low probability for PE. Appears patient is in blast crisis and her thrombocytopenia has complicated course. Due to blood-tinged sputum and ensuing respiratory distress, patient was transferred to ICU, intubated and underwent BAL. She remains in ICU with sedation and on vent at this time. Conjugated hyperbilirubinema now with the addition of elevated alk phos is suggestive of sepsis cholestasis vs drug-induced hepatotoxicty; scans reviewed showing no o bstructive biliary etiology. Plan: - cont ICU management - Abx per ID. She was started on Mepron for possible fungal infection. These medications may cause worsening of liver tests. - IV steroids per ICU team. - c.diff is negative - NPO - PPI for GI ppx in ICU pt - monitor H/H; transfusing per Heme/Onc - Palliative care is following the case; patient now DNR - no endoscopic intervention required at this time - further recs per Dr. Dela Cruz Case was reviewed and discussed with Dr. Dela Cruz <Efrem Dela Cruz V - Last Filed: 08/18/18 16:26> Objective - Vital Signs/Intake and Output Vital Signs (last 24 hours): Temp Pulse Resp BP Pulse Ox 98.8 F 113 H 34 H 91/36 L 90 L 08/18/18 13:30 08/18/18 14:00 08/18/18 08:00 08/18/18 13:00 08/18/18 13:30 Intake and Output: 08/18/18 08/18/18 06:59 18:59 Intake Total 1312 2222 Output Total 1550 200 Balance -238 2021 - Medications Medications: Current Medications Albuterol/Ipratropium (Duoneb 3 Mg/0.5 Mg (3 Ml) Ud) 3 ml IH [id number] PRN PRN Reason: Shortness of Breath Last Admin: 08/12/18 03:00 Dose: 3 ml Albuterol/Ipratropium (Duoneb 3 Mg/0.5 Mg (3 Ml) Ud) 3 ml IH [id number] [facility] Last Admin: 08/18/18 14:04 Dose: 3 ml Amlodipine Besylate (Norvasc) 10 mg PO DAILY [facility] Last Admin: 08/13/18 10:00 Dose: Not Given Atovaquone (Mepron) 750 mg PO BID [facility]; Protocol Last Admin: 08/18/18 09:39 Dose: 750 mg Budesonide (Pulmicort Respules) 0.5 mg IH BIDRESP [facility] Last Admin: 08/18/18 08:08 Dose: 0.5 mg Clonazepam (Klonopin) 0.5 mg PO BID [facility]; Protocol Last Admin: 08/13/18 12:42 Dose: Not Given Diphenhydramine HCl (Benadryl) 25 mg IVP Q8H PRN PRN Reason: Allergy symptoms Ergocalciferol (Drisdol 50,000 Intl Units Cap) 1 cap PO SUN COUNT INCLUDES [facility] Last Admin: 08/12/18 09:24 Dose: 1 cap Hydrocortisone Sodium Succinate (Solu-Cortef) 100 mg IVP Q8 [facility] Last Admin: 08/18/18 13:12 Dose: 100 mg Propofol (Diprivan) 1,000 mg in 100 mls @ 1.591 mls/hr IV .Q24H PRN; Protocol PRN Reason: TITRATE PER MD ORDER Last Admin: 08/18/18 13:10 Dose: 50 mcg/kg/min, 15.908 mls/hr Doxycycline Hyclate 100 mg/ (Sodium Chloride) 100 mls @ 100 mls/hr IVPB Q12 [facility]; Protocol Stop: 08/20/18 13:31 Last Admin: 08/18/18 10:24 Dose: 100 mls/hr Piperacillin Sod/Tazobactam Sod (Zosyn 3.375 In Ns 100ml) 100 mls @ 25 mls/hr IVPB Q8 [facility]; Protocol Stop: 08/20/18 14:01 Last Admin: 08/18/18 13:12 Dose: 25 mls/hr NOREPINEPHRINE BIT/0.9 % NACL (Levophed 4 Mg/ 250 Ml Ns Premixed) 4 mg in 250 mls @ 15 mls/hr IV .[id number] PRN; Protocol PRN Reason: TITRATE PER MD ORDER Last Titration: 08/16/18 21:27 Dose: Infused Potassium Chloride 20 meq/ (Sodium Chloride) 1,010 mls @ 100 mls/hr IV .Q10H6M [facility] Last Admin: 08/15/18 15:29 Dose: 100 mls/hr Dextrose (Dextrose 5% In Water 1000 Ml) 1,000 mls @ 50 mls/hr IV .Q20H [facility] Last Admin: 08/18/18 08:40 Dose: 50 mls/hr Fentanyl Citrate (Fentanyl Citrate/Sodium Chloride 1 Mg/100 Ml) 1,000 mcg in 100 mls @ 8 mls/hr IV .[id number] PRN; Protocol PRN Reason: TITRATE PER MD ORDER Last Admin: 08/18/18 08:44 Dose: 80 mcg/hr, 8 mls/hr Loratadine (Claritin) 10 mg PO DAILY COUNT INCLUDES [facility] Last Admin: 08/13/18 10:00 Dose: Not Given Losartan Potassium (Cozaar) 50 mg PO QPM COUNT INCLUDES [facility] Last Admin: 08/13/18 18:14 Dose: Not Given Metoprolol Tartrate (Lopressor) 5 mg IVP Q4H PRN PRN Reason: Heart rate Last Admin: 08/17/18 23:14 Dose: 5 mg Metoprolol Tartrate (Lopressor) 25 mg PO BID COUNT [facility]CLUDES [facility] Last Admin: 08/18/18 09:39 Dose: 25 mg Mupirocin (Bactroban Ointment) 1 gm TOP BID COUNT INCLUDES [facility] Last Admin: 08/18/18 09:41 Dose: 1 applic Nicotine (Nicoderm Cq) 1 patch TD DAILY COUNT INCLUDES [facility] Last Admin: 08/12/18 09:26 Dose: Not Given Non-Formulary Medication (Vitamin B Complex [Super B-50 Complex]) 1 cap PO DAILY COUNT INCLUDES [facility] Last Admin: 08/18/18 10:40 Dose: Not Given Ondansetron HCl (Zofran Inj) 4 mg IVP Q6H PRN PRN Reason: Nausea/Vomiting Last Admin: 08/10/18 02:02 Dose: 4 mg Pantoprazole Sodium (Protonix Inj) 40 mg IVP DAILY COUNT INCLUDES [facility] Last Admin: 08/18/18 09:39 Dose: 40 mg Sodium Chloride ([place] Nasal [place]) 0 ml NS QID COUNT INCLUDES [facility] Last Admin: 08/18/18 13:11 Dose: 1 sprays - Labs Labs: 08/18/18 06:35 08/18/18 06:00 PT 23.1 SECONDS (9.4-12.5) H 08/14/18 17:00 INR 2.08 08/14/18 17:00 APTT 30.6 Seconds (26.9-38.3) 08/13/18 17:10 Attending/Attestation - Attestation I have personally seen and examined this patient.: Yes I have fully participated in the care of the patient.: Yes I have reviewed all pertinent clinical information, including history, physical exam and plan: Yes Notes (Text): This patient was seen and evaluated earlier along with the GI fellow. This is an addendum to the progress report dictated by the fellow patient has significant decrease in hemoglobin and also decrease in platelets. No obvious bleeding per rectum or melena. Patient has been started on Mepron. Bilirubin total he is on the rise. The differential diagnosis should include secondary to sepsis syndrome, drug-induced and also hepatic condition to be considered. Multiple comorbidities including DVT, advanced MDS history of surgery for lung cancer and breast. Patient remains on vent. Overall prognosis appears poor 08/18/18 16:24
--- NOTE | 2018-08-18 14:53 | PN ---
DATE: 08/18/2018 SUBJECTIVE: The patient is currently seen in ICU, bed 1. She is sedated. She remains on a ventilator. She is receiving blood products. She remains hypernatremic and mildly prerenal. MEDICATIONS: Medication list reviewed. The patient is on mupirocin, Benadryl, D5W 50 mL an hour, Diprivan, doxycycline, DuoNeb, vitamin D, fentanyl, Levophed for blood pressure support, Lopressor p.r.n., meropenem, Protonix, Pulmicort, Solu-Cortef, vitamins, Zofran, and Zosyn. OBJECTIVE: INTAKE AND OUTPUT: Intake is 1612, output is 1550. VITAL SIGNS: Blood pressure is 106/47, pulse of 113, temperature 98 with a respiratory rate of 34, oxygen saturation is 93% with an FiO2 of 100% on a ventilator. HEENT: Eyes are closed. The patient is on a ventilator. NECK: No neck vein distention. CHEST: Scattered rhonchi. No rales or wheezing. CARDIOVASCULAR: Regular rate and rhythm with MR/TR. No S3, no S4, no rub. ABDOMEN: Soft. Bowel sounds normal. No rebound, guarding, or masses. EXTREMITIES: 1+ lower extremity edema. Arms are puffy. Diminished lower extremity pulses secondary to edema. LABORATORY DATA AND IMAGING: CBC: White blood cell count today 12.3, hemoglobin down to 6.7, the patient is receiving blood products. Platelet count is low at 13,000, last manual platelet count was 9000. Blood gas today; pH 7.11, pCO2 is 74 with a pO2 of 53, consistent with respiratory acidosis. Chemistries: Sodium is slightly improved at 154, chloride 121, BUN remains mildly elevated at 40 with a creatinine of 1, potassium is normal at 4.1, magnesium level is 1.7, phosphorous level is elevated at 6 with a calcium level of 8.7. Bilirubin is 6.1 with an elevated alkaline phosphatase, albumin is 2.7. Microbiology: All cultures are negative. Repeat blood cultures are negative. Chest x-ray shows bilateral infiltrates. ASSESSMENT: 1. Mild prerenal azotemia. 2. Mild hypernatremia. The patient continues to receive 300 mL of free water via the nasogastric tube every 6 hours. She has also been started on hypotonic intravenous fluids. In all likelihood, the sodium level will continue to fall towards the normal range. We will need to monitor her electrolytes and supplement potassium, as initially we did see the patient for hypokalemia. 3. Acute respiratory failure. The patient has bilateral pneumonia and sepsis. She is intubated. She has been intubated for a long period of time. Family is making a decision in light of her status. 4. History of breast cancer, status post lumpectomy. 5. History of lung cancer, status post lobectomy. 6. 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 The patient has pancytopenia. The patient is receiving blood products on a routine basis as necessary. 7. Past history of cigarette smoking and chronic obstructive pulmonary disease. 8. Past history of hypertension. The patient currently remains hypotensive with pressor support. 9. History of deep venous thrombosis of her left upper extremity. 10. History of lower extremity edema. PLAN: 1. Discussed with ICU nurse. From my standpoint, continue hypotonic IV fluid hydration. She also may receive hypotonic fluids, free water via the NG tube. 2. Continue to support the patient with blood products. 3. DNR noted, but no decisions about further management until agreement of family takes place. 4. We will continue to monitor the patient closely with you. 5. Her retirement prognosis is poor in light of her underlying medical history and current situation. Greater than 35 minutes spent in the care of this patient. Abdiel Maria MD
[2018-08-18 17:54] VITALS: BMI 24.1
[2018-08-19] MEDS: Albuterol-Ipratrop 3 mg / 0.5 (3 ml) UD IH SCH ×2 (02:19→07:51)
[2018-08-19] MEDS: Propofol 10 mg/ml 1,000 MG/100 ML VIAL IV PRN (03:42)
[2018-08-19] MEDS: Piperacillin/Tazobact 3.375 gm 100 ML IVPB SCH (05:01)
[2018-08-19 05:40] LABS: ARTERIAL BLOOD GAS HCO3 22.2 mmol/L (21-28); ARTERIAL BLOOD GAS HEMOGLOBIN 6.1 g/dL (11.7-17.4); ARTERIAL BLOOD GAS O2 CAPACITY 8.2 mL/dl (16-24); ARTERIAL BLOOD GAS O2 CONTENT 7.6 ML/dl (15-23); ARTERIAL BLOOD GAS O2 SAT 92.2 % (95-98); ARTERIAL BLOOD GAS PCO2 70 mm/Hg (35-45); ARTERIAL BLOOD GAS PH 7.11 (7.35-7.45); ARTERIAL BLOOD GAS TCO2 24.3 mmol.L (22-28)
[2018-08-19 05:42] LABS: BASO # 0.04 K/mm3 (0.0-2.0); BASO % 0.3 % (0.0-3.0); MEAN CELL VOLUME 89.3 fl (80.0-105.0); MEAN CORPUSCULAR HEMOGLOBIN 30.6 pg (25.0-35.0); MEAN CORPUSCULAR HGB CONC 34.2 g/dl (31.0-37.0); RBC 2.06 10^6/uL (3.5-6.1); RED CELL DISTRIBUTION WIDTH 18.4 % (11.5-14.5); WHITE BLOOD COUNT 14.5 10^3/uL (4.5-11.0)
[2018-08-19 05:52] LABS: HEMOGLOBIN 6.3 g/dL (12.0-16.0)
[2018-08-19 05:53] LABS: PLATELET COUNT 11 10^3/uL (120.0-450.0)
[2018-08-19 06:04] LABS: ALB/GLOB RATIO 0.8 (1.1-1.8); ALBUMIN 2.7 g/dL (3.0-4.8); CALCIUM 8.7 mg/dL (8.4-10.5)
[2018-08-19] MEDS: Budesonide 0.5 mg/2 ml Inhal Susp UD IH SCH (07:51)
--- NOTE | 2018-08-19 08:31 | RAD ---
HISTORY: follow up infiltrate COMPARISON: Chest x-ray performed 08/18/18 TECHNIQUE: Chest, one view. FINDINGS: Numerous external wires and leads obscure evaluation of the underlying parenchyma. Endotracheal tube terminates approximately 2.4 cm above the emily. Orogastric tube extends beyond the hemidiaphragm towards expected location of the stomach, distal tip excluded from view. LUNGS: Diffuse bilateral alveolar infiltrates persist. PLEURA: Small bilateral pleural effusions. No definite pneumothorax. CARDIOVASCULAR: Heart size appears top normal. Faint atherosclerotic calcifications. OSSEOUS STRUCTURES: Degenerative changes. VISUALIZED UPPER ABDOMEN: Unremarkable. OTHER FINDINGS: None. IMPRESSION: Endotracheal tube and nasogastric tubes as above. Diffuse bilateral alveolar infiltrates and small bilateral effusions.
--- NOTE | 2018-08-19 09:34 | PN ---
DATE: 08/19/2018 [employer] NOTE SUBJECTIVE: The patient is sedated on the ventilator with FiO2 of 100%. She is tolerating enteral feedings. She is on propofol for sedation. The patient has very low hemoglobin at this time, is getting packed RBCs transfusion. She has no active bleeding sites at this time. She does have generalized swelling and anasarca and being followed closely. PHYSICAL EXAMINATION VITAL SIGNS: Her temperature is 98.1, her pulse is 110, respirations are 20 and BP is 134/63. SKIN: Warm and dry. HEENT: Head is atraumatic, normocephalic. Eyes; reactive to light. Ears, nose and throat seem to be within normal limits. NECK: Supple. No JVD. No thyroid enlargement, no lymph nodes. HEART: Has regular rate and rhythm. Normal S1 and S2, but tachycardic. LUNGS: Reveal bilateral rhonchi. ABDOMEN: Soft. Decreased bowel sounds. GENITALIA: Deferred. RECTAL: Deferred. MUSCULOSKELETAL: No joint deformities. EXTREMITIES: Reveal diffuse edema. NEUROLOGICALLY: She is sedated on the ventilator. LABORATORY DATA: As far as her laboratories are concerned, the patient's white count is 14.5, hemoglobin is 6.3, hematocrit 18.4 and platelets of 11,000. The patient's arterial blood gas reveals a pH of 7.11, pCO2 of 70 and pO2 of 53. Her sodium is 151, potassium 4.2, chloride 116, CO2 of 23 with a BUN of 64, creatinine of 1.7 and glucose of 256. IMPRESSION: As far as my impression, the patient has respiratory failure with bilateral pneumonia, possible pleural effusions as well. She is hypercapnic as well as hypoxic on ventilator. The patient has respiratory acidosis. She has accelerated myelodysplastic syndrome and history of lung carcinoma as well as breast cancer. She has chronic obstructive pulmonary disease, sepsis, pancolitis, anemia, thrombocytopenia and hypernatremia. PLAN: As far as our plan, we will continue with ventilator support and decrease the FiO2 as tolerated. The patient is getting packed red blood cells, we will follow her hemoglobin closely as well as her platelets. The patient has no active bleeding sites at this time. We will continue with aggressively pulmonary toilet. She is DNR at this time. She is getting IV fluids, doxycycline, DuoNeb, fentanyl, Lopressor, metformin, Mepron, propofol, Protonix, Pulmicort, Solu-Cortef and Zosyn. We will continue to treat aggressively along with the other consultants and the primary care doctor. Randolph Rao MD
[2018-08-19] MEDS ORDERED: MEROPENEM 500 MG in NS 500 MG/50 ML BAG IVPB SCH (10:00)
--- NOTE | 2018-08-19 10:10 | CP.PCM.PN ---
Subjective - Date & Time of Evaluation Date of Evaluation: 08/19/18 Time of Evaluation: 09:10 - Subjective Subjective: Patient continues to be on the ventilator, no fevers. Objective - Vital Signs/Intake and Output Vital Signs (last 24 hours): Temp Pulse Resp BP Pulse Ox 98 F 115 H 34 H 106/48 L 90 L 08/18/18 08:00 08/18/18 10:30 08/18/18 08:00 08/18/18 10:00 08/18/18 10:30 Intake and Output: 08/18/18 08/18/18 06:59 18:59 Intake Total 1312 200 Output Total 1550 Balance -238 200 - Medications Medications: Current Medications Albuterol/Ipratropium (Duoneb 3 Mg/0.5 Mg (3 Ml) Ud) 3 ml IH [id number] PRN PRN Reason: Shortness of Breath Last Admin: 08/12/18 03:00 Dose: 3 ml Albuterol/Ipratropium (Duoneb 3 Mg/0.5 Mg (3 Ml) Ud) 3 ml IH [id number] [facility] Last Admin: 08/18/18 08:08 Dose: 3 ml Amlodipine Besylate (Norvasc) 10 mg PO DAILY [facility] Last Admin: 08/13/18 10:00 Dose: Not Given Atovaquone (Mepron) 750 mg PO BID [facility]; Protocol Last Admin: 08/18/18 09:39 Dose: 750 mg Budesonide (Pulmicort Respules) 0.5 mg IH BIDRESP [facility] Last Admin: 08/18/18 08:08 Dose: 0.5 mg Clonazepam (Klonopin) 0.5 mg PO BID [facility]; Protocol Last Admin: 08/13/18 12:42 Dose: Not Given Diphenhydramine HCl (Benadryl) 25 mg IVP Q8H PRN PRN Reason: Allergy symptoms Ergocalciferol (Drisdol 50,000 Intl Units Cap) 1 cap PO SUN [facility] Last Admin: 08/12/18 09:24 Dose: 1 cap Hydrocortisone Sodium Succinate (Solu-Cortef) 100 mg IVP Q8 [facility] Last Admin: 08/18/18 05:03 Dose: 100 mg Propofol (Diprivan) 1,000 mg in 100 mls @ 1.591 mls/hr IV .Q24H PRN; Protocol PRN Reason: TITRATE PER MD ORDER Last Admin: 08/18/18 06:22 Dose: 50 mcg/kg/min, 15.908 mls/hr Doxycycline Hyclate 100 mg/ (Sodium Chloride) 100 mls @ 100 mls/hr IVPB Q12 [facility]; Protocol Stop: 08/20/18 13:31 Last Admin: 08/18/18 10:24 Dose: 100 mls/hr Piperacillin Sod/Tazobactam Sod (Zosyn 3.375 In Ns 100ml) 100 mls @ 25 mls/hr IVPB Q8 [facility]; Protocol Stop: 08/20/18 14:01 Last Admin: 08/18/18 05:03 Dose: 25 mls/hr NOREPINEPHRINE BIT/0.9 % NACL (Levophed 4 Mg/ 250 Ml Ns Premixed) 4 mg in 250 mls @ 15 mls/hr IV .[id number] PRN; Protocol PRN Reason: TITRATE PER MD ORDER Last Titration: 08/16/18 21:27 Dose: Infused Potassium Chloride 20 meq/ (Sodium Chloride) 1,010 mls @ 100 mls/hr IV .Q10H6M [facility] Last Admin: 08/15/18 15:29 Dose: 100 mls/hr Dextrose (Dextrose 5% In Water 1000 Ml) 1,000 mls @ 50 mls/hr IV .Q20H [facility] Last Admin: 08/18/18 08:40 Dose: 50 mls/hr Fentanyl Citrate (Fentanyl Citrate/Sodium Chloride 1 Mg/100 Ml) 1,000 mcg in 100 mls @ 8 mls/hr IV .[id number] PRN; Protocol PRN Reason: TITRATE PER MD ORDER Last Admin: 08/18/18 08:44 Dose: 80 mcg/hr, 8 mls/hr Loratadine (Claritin) 10 mg PO DAILY [facility] Last Admin: 08/13/18 10:00 Dose: Not Given Losartan Potassium (Cozaar) 50 mg PO QPM [facility] Last Admin: 08/13/18 18:14 Dose: Not Given Metoprolol Tartrate (Lopressor) 5 mg IVP Q4H PRN PRN Reason: Heart rate Last Admin: 08/17/18 23:14 Dose: 5 mg Metoprolol Tartrate (Lopressor) 25 mg PO BID [facility] Last Admin: 08/18/18 09:39 Dose: 25 mg Mupirocin (Bactroban Ointment) 1 gm TOP BID [facility] Last Admin: 08/18/18 09:41 Dose: 1 applic Nicotine (Nicoderm Cq) 1 patch TD DAILY [facility] Last Admin: 08/12/18 09:26 Dose: Not Given Non-Formulary Medication (Vitamin B Complex [Super B-50 Complex]) 1 cap PO DAILY [facility] Last Admin: 08/18/18 10:40 Dose: Not Given Ondansetron HCl (Zofran Inj) 4 mg IVP Q6H PRN PRN Reason: Nausea/Vomiting Last Admin: 08/10/18 02:02 Dose: 4 mg Pantoprazole Sodium (Protonix Inj) 40 mg IVP DAILY [facility] Last Admin: 08/18/18 09:39 Dose: 40 mg Sodium Chloride ([place] Nasal [place]) 0 ml NS QID [facility] Last Admin: 08/18/18 09:40 Dose: 2 sprays - Labs Labs: 08/18/18 06:35 08/18/18 06:00 PT 23.1 SECONDS (9.4-12.5) H 08/14/18 17:00 INR 2.08 08/14/18 17:00 APTT 30.6 Seconds (26.9-38.3) 08/13/18 17:10 - Constitutional Appears: Other (intubated, sedated) - Head Exam Head Exam: NORMAL INSPECTION - ENT Exam Additional comments: ET tube in place - Respiratory Exam Respiratory Exam: Decreased Breath Sounds - Cardiovascular Exam Cardiovascular Exam: +S1, +S2 - GI/Abdominal Exam GI & Abdominal Exam: Soft. absent: Tenderness - Extremities Exam Additional comments: right femoral TLC in place Assessment and Plan - Assessment and Plan (Free Text) Plan: Assessment New onset sepsis with VDRF due to HCAP R/O pnuemocystis, on top of pancolitis, in this patient with myelodysplastic syndrome MD on chemotherapy lung cancer S/P lobectomy S/P right breast mastectomy COPD history of endocarditis Plan continue Doxycycline and Zosyn day 6 and Mepron day 3 - using Mepron instead of Bactrim because of concern for this patient with MDS and severe thrombocytopenia ; noted indeterminate levels of B-D glucan cultures have been negative, including BAL overall prognosis is poor
[2018-08-19] MEDS: Non Formulary Medication (Vitamin B Complex [Super B-50 Complex] 1 CAP) PO SCH (11:04)
[2018-08-19] MEDS: Atovaquone 750 mg/5 ml Susp UD PO SCH (11:10)
[2018-08-19] MEDS: Ergocalciferol 50,000 Intl Units Cap PO SCH (11:18)
[2018-08-19] MEDS: Mupirocin 2% Ointment 15 GM TUBE TOP SCH (11:36)
[2018-08-19 11:42] LABS: PLATELET ESTIMATE LOW (NORMAL)
[2018-08-19] MEDS: Fentanyl 1000mcg/100ml NS 1,000 MCG/100 ML BAG IV PRN (11:52)
--- NOTE | 2018-08-19 12:48 | PN ---
DATE: 08/19/2018 SUBJECTIVE: The patient is once again seen in ICU bed 1. She remains unresponsive on a ventilator. She has an ET tube in place. The patient is way ahead on fluids. She has been receiving large amounts of hypotonic fluids with very minimal urine output. Her hypernatremia has improved. Her potassium level remains normal. Her BUN is now up to 64 with a creatinine of 1.7. MEDICATIONS: Medication list reviewed. The patient is currently on mupirocin, Benadryl, D5W 50 mL an hour, Diprivan, doxycycline, vitamin D, DuoNeb, fentanyl, IV Lopressor, meropenem, Protonix, Pulmicort Respules, Solu-Cortef, vitamin B complex and Zofran. OBJECTIVE: INTAKE AND OUTPUT: Intake is 4387, output is 300 mL of which urine was 100 mL. VITAL SIGNS: Blood pressure 134/63, heart rate 110, respiratory rate is 30 to 34, temperature 98.1. HEENT: Eyes are closed. The patient remains on a ventilator. NECK: No neck vein distention. CHEST: Scattered rhonchi. No rales or wheezing. CARDIOVASCULAR: Shows a regular rate and rhythm with MR/TR, no S3, no S4, no rub. ABDOMEN: Soft. Bowel sounds normal. No rebound, guarding or masses. EXTREMITIES: Show 1 to 2+ pitting edema. She has dependent edema around her sacral area. Her arms are puffy. Diminished lower extremity pulses secondary to edema. LABORATORY DATA AND IMAGING: CBC, white blood cell count 14.5, slightly higher, hemoglobin low at 6.3, platelet count extremely low at 11,000. Blood gas today, pH 7.11, pCO2 of 70, pO2 is 53. Chemistries, sodium is slightly improved to 151. BUN is now up to 64 with a creatinine 1.7. Potassium 4.2, bicarbonate level is 23. Glucose is 256. Bilirubin is 8.8. Mild elevation of alkaline phosphatase. Albumin is 2.7. Microbiology, all cultures were negative. Followup chest x-ray showed bilateral infiltrates. ASSESSMENT: 1. Acute renal failure with prerenal azotemia. The patient is now developing oliguria. In light of her overall medical condition, she is not a candidate for any renal replacement therapy and I will not have the discussion with the patient's family. 2. Mild hypernatremia, slowly resolving with hypotonic fluids. Need to be cautious as the patient has had 3 to 4 liters a day and she is retaining all the fluid. 3. Status post hypokalemia. This has resolved. 4. Acute respiratory failure. Discussed with intensive care unit staff. Unclear to me as to why her pCO2 level is so high and the patient is intubated. 5. History of breast cancer, status post lumpectomy. 6. History of lung cancer, status post lobectomy. 7. History of acute myeloid leukemia, myelofibrosis and severe myelodysplastic syndrome. The patient has severe pancytopenia and is receiving blood products on an as-needed basis. 8. Past history of chronic obstructive pulmonary disease and cigarette smoking. 9. Past history of hypertension. The patient remains borderline hypotensive. She is currently off all pressors. 10. Past history of a deep vein thrombosis of the left upper extremity. 11. Increasing lower extremity edema and generalized anasarca. PLAN: 1. Discussed with ICU house staff and nurse. Unclear to me as to why her pCO2 remains elevated and the patient may be developing respiratory acidosis. Perhaps, she needs adjustment of her ventilator settings. 2. Concerned about her drop in urine output but in light of her overall medical condition, dialysis is not being planned for this patient. 3. DNR noted. Further management regarding end-of-life decision making as per family. 4. Continue to support the patient with blood products. 5. Greater than 35 minutes spent in the care of this patient. Abdiel Maria MD
--- NOTE | 2018-08-19 13:10 | PN ---
DATE: 08/19/2018 LOCATION: The patient in ICU, room 128, bed 1. REASON FOR CONSULTATION AND FOLLOWUP: Cardiac evaluation, respiratory failure, sepsis, pneumonia, lung CA, status post intubation remains intubated and sinus tachycardia. SUBJECTIVE: The patient continued to be respiratory dependent and she is on respiratory at present, sinus tachycardia has slow down as compared to before. She still has sinus tachycardia, but heart rate is decreased. Now she is on the range of 110 per minute at present. PHYSICAL EXAMINATION: VITAL SIGNS: Blood pressure 134/63, pulse 110 per minute and temperature 98.1. HEENT: Head is normocephalic. Eyes; pupils are normal. Conjunctiva is pale. NECK: JVP low. Carotids equal. THORAX: AP diameter normal. LUNGS: Fine rales on the right base. CARDIOVASCULAR: S1 and S2. ABDOMEN: Soft. Bowel sounds normal. EXTREMITIES: No clubbing. No cyanosis. LABORATORY DATA: WBC 14.5, hemoglobin 6.8, hematocrit 18.4 and platelets 11. Sodium 151, potassium 4.2, BUN 64, creatinine 1.7, magnesium 1.8, total bilirubin 8.8, AST and ALT normal, alkaline phosphatase elevated at 166, total protein is 6.1, albumin 2.7. Chest x-ray diffused bilateral alveolar infiltrate, small bilateral effusions. DIAGNOSES: Respiratory failure, sinus tachycardia, sepsis and myelodysplastic syndrome, leukemia, status post lung cancer, chemotherapy, breast cancer treated, status post lobectomy for lung cancer and chemotherapy, pancytopenia, history of thrombocytopenia, severe anemia, bilateral pneumonia and sepsis. Echo was done on 08/10/2018 which showed normal size left ventricular, posterior wall shows mild hypertrophy, left ventricular systolic function, mild decreased left ventricular ejection fraction of 42%, left ventricular anterior wall hypokinetic, moderate mitral regurgitation, moderate to severe tricuspid regurgitation, right ventricular systolic pressure 63 mmHg, suggestive of mild pulmonary hypertension, no pericardial effusion, hypernitremia, renal dysfunction. PLAN: The patient is getting 300 mL of water through NG tube every 6 hours for elevated sodium which is her hemoconcentration with elevated BUN and creatinine. The patient is also getting D4W IV 50 mL an hour, doxycycline 100 mg IV every 12 hours, metoprolol 5 mg IV p.r.n. every 4 hours for tachycardia, metoprolol 25 mg b.i.d., Mepron 750 mg p.o. b.i.d., meropenem 500 mg IV every 12 hours, norepinephrine drip 4 mg of 250 mL D5W, mcg per minute, Norvasc 10 mg daily. The patient on propofol IV daily, hydrocortisone 100 mg IV every 8 hours. We will continue physical therapy and follow labs in the morning. The patient also getting blood transfusion for severe anemia. We will follow with you. Solange Escobar MD
[2018-08-19 16:20] VITALS: RESP 14
--- NOTE | 2018-08-19 16:34 | PN ---
DATE: 08/19/2018 EXPIRATION NOTE SUBJECTIVE: Ms. Pope was critically ill patient at [facility] with respiratory failure, bilateral pneumonia, pleural effusions, hypercapnia and hypoxia on the ventilator. The patient had severe respiratory acidosis with accelerated myelodysplastic syndrome, history of lung CA and breast CA as well as sickle cell disease and COPD. The patient had severe anemia as well as severe thrombocytopenia. The patient became bradycardiac and note that she is a DNR as per family. She was given bolus of normal saline for the hypotension and started on Levophed, but did not respond. The patient at 1:20 p.m. on 08/19/2018. Family was at bedside. The patient did not have an autopsy. certificate form was filled out and the case ID number is [id number]. Randolph Rao MD
[2018-08-19 16:43] VITALS: BP 43/19; PULSE 49; TEMP 99.1; O2SAT 73
--- NOTE | 2018-08-19 21:57 | PN ---
DATE: 08/19/2018 PULMONARY CRITICAL CARE PROGRESS NOTE REFERRING PHYSICIAN: August Lara MD. SUBJECTIVE: She is intubated and sedated, on ventilator which is a ventilator. Not much ET tube secretion. Has anasarca. No hemoptysis. No emesis. No hematuria. PHYSICAL EXAMINATION: GENERAL: Unresponsive on a ventilator. VITAL SIGNS: Temperature is 99, heart rate is 50, respiratory rate is 30, blood pressure 96/39, pulse ox 92% on 100% oxygen. HEENT: Moist mucous membranes. ET tube no secretion. NECK: Supple. No JVD. LUNGS: Has scattered rhonchi and crackles. HEART: S1 and S2. ABDOMEN: Nondistended, soft. EXTREMITIES: Has anasarca, left upper extremity more swollen than other extremities. NEUROLOGICAL: Intubated and sedated. MEDICATIONS: She is on Bactroban ointment effect to affected area, Benadryl on p.r.n. basis, Claritin 10 mg daily, Cozaar 50 mg daily. She is getting Diprivan, doxycycline 100 mg IV twice a day, getting DuoNeb every 6 hours round the clock, also been on fentanyl, Levophed, metoprolol tartrate 5 mg IV every 4 hours p.r.n., also metoprolol extended release 25 mg twice a day, Mepron 750 mg twice a day, Pulmicort inhaled twice a day, Protonix 40 mg daily, Solu-Cortef 100 mg every 8 hours, vitamin B-50 one capsule daily, Zofran on p.r.n. basis. LABORATORY DATA: Shows hemoglobin 6.3, hematocrit 18.4, WBC 14.5, platelet is 11. ABG showed pH 7.11, pCO2 of 70, O2 is 53. Sodium 151, potassium 4.2, chloride 116, bicarbonate 23, BUN 64, creatinine 1.7, glucose 256, calcium 8.7, magnesium 1.8, total bili is 8.8, AST 29, ALT 18, alkaline phosphatase is 166, albumin is 2.7. Chest x-ray done this morning shows endotracheal tube and nasogastric tube in place, diffuse bilateral alveolar infiltrates and small pleural effusion. IMPRESSION AND PLAN: Multiorgan failure, has myelodysplasia of the bone marrow, history of lung cancer requiring lobectomy, thrombocytopenia, severe anemia, history of sickle cell, left upper extremity deep venous thrombosis, chronic lung disease, early aspiration pneumonia. Case discussed with nursing staff. I also spoke to respiratory therapist. Overall very poor prognosis. Keep present ventilator setting. On pressors, bronchodilator, steroids. The patient is DNR and DNI. We will continue close followup. Critical care time is more than 35 minutes. Follow up labs in the morning. Thank you and we will follow with you. Solange Maurer MD
--- NOTE | 2018-08-20 02:17 | PN ---
DATE: 08/18/2018 SUBJECTIVE: The patient was seen. She is in ICU. Dr. Randolph Rao has seen the patient. The patient is sedated. She seems comfortable. No distress. PHYSICAL EXAMINATION: GENERAL: The patient still remains critically sick in ICU, on a ventilator with heavy sedation for comfort care. VITAL SIGNS: Her temperature 99.1, heart rate 108, saturating 90% on 100% oxygen. HEAD AND NECK: No JVD. CHEST: Diminished breath sounds. Few rhonchi. CARDIAC: First sound and second sounds normal. Tachycardic. ABDOMEN: Soft. EXTREMITIES: No edema. NEUROLOGICAL: The patient is sedated. LABORATORY DATA: Her white count is 12.4, hemoglobin is 6.5, hematocrit 20, platelets 7. Chemistry: Sodium 154, potassium 4.1, chloride 121, bicarb 24, BUN 40, creatinine 1, blood sugars , and her phosphorus is 6. Also alkaline phosphatase 127, AST and ALT are fine. C-reactive protein is 434. IMPRESSION AND PLAN: This is a 53-year-old female with severe myelodysplastic syndrome, acute myeloid leukemia, multiorgan failure, aspiration pneumonia, chronic obstructive pulmonary disease. 1. Continue ventilator support. Continue intravenous and inhaled bronchodilators. Follow up with the language therapist. 2. Severe sepsis. Continue current intravenous antibiotics. Follow up with Infectious Disease consult. 3. The patient has hypertension. She is on vasopressor norepinephrine for comfort care. She is on propofol as well as fentanyl drip. Continue current supports. Continue current therapy. The patient has poor prognosis. She has severe anemia, thrombocytopenia, and bone marrow failure. We will continue current treatment, supportive care, Do Not Resuscitate/Do Not Intubate. We will follow up closely with other consultants. Discussed with the family. August Lara MD
--- NOTE | 2018-08-20 03:12 | DS ---
HOSPITAL COURSE: The patient was admitted initially with hemoptysis/blood. She has fever with some respiratory distress. She was given nebulizer treatment . Her blood culture initially was negative. ID consult has seen the patient; however, left arm thrombus was noted and was treated with Lovenox. The patient did develop some hemoptysis down the course of treatment, which necessitated intubation because of associated respiratory distress. She did have aspiration pneumonia. The patient had bone marrow failure. She had multiple platelet transfusions. Her condition seemed severely deteriorating plus her baseline condition is advanced disease with severe bone marrow failure due to myelodysplasia and acute myeloid leukemia. The patient was seen by Oncology consult, Dr. Lopez, seen by Dr. Maurer, Pulmonary consult, ID, Dr. Juan, and Computer [employer] team, Dr. Dickson was also on the case before the patient's condition deteriorated and . During the hospitalization, she was comfortable, she was intubated, fentanyl plus Diprivan, she received antibiotics, and she received multiple units of transfusions. The patient was made DNR/DNI as per family request. The patient today. While she was in the hospital last laboratory findings; sodium 153, potassium 4.4, chloride 123, bicarbonate 22, BUN 29, creatinine 1, and blood sugar 107. She also had CBC, which showed white count of 14.5, hemoglobin of 6.3, hematocrit of 18.4, and platelets 11. DISCHARGE DIAGNOSES: 1. Severe sepsis. 2. Aspiration pneumonia. 3. Respiratory failure. 4. Multiorgan failure. 5. Severe anemia. 6. Severe thrombocytopenia. 7. Chronic obstructive pulmonary disease. 8. Emphysema. 9. Hypernatremia. DISPOSITION: The patient today, 08/19/2018. The patient was comfort care. She was DNR/DNI. August Lara MD
== END 2018-08-19 13:20 | DRG 581 ==
LOC: ED 13:03 → ERH 14:20 → UNDOADMIN 15:06 → ERH 16:48 → 3RNO 19:00 → ICU 08-13 09:22
PROVIDERS: ADMIT Internal Medicine; ATTEND Internal Medicine
PROC: 30233R1 Transfusion of Nonautologous Platelets into Peripheral Vein, Percutaneous Approach (ICD-10-PCS; 2018-08-08)
PROC: 30233N1 Transfusion of Nonautologous Red Blood Cells into Peripheral Vein, Percutaneous Approach (ICD-10-PCS; 2018-08-09)
PROC: 30233K1 Transfusion of Nonautologous Frozen Plasma into Peripheral Vein, Percutaneous Approach (ICD-10-PCS; 2018-08-10)
PROC: 5A1955Z Respiratory Ventilation, Greater than 96 Consecutive Hours (ICD-10-PCS; principal; 2018-08-13)
PROC: 0B9F8ZX Drainage of Right Lower Lung Lobe, Via Natural or Artificial Opening Endoscopic, Diagnostic (ICD-10-PCS; 2018-08-13)
PROC: 0BH18EZ Insertion of Endotracheal Airway into Trachea, Via Natural or Artificial Opening Endoscopic (ICD-10-PCS; 2018-08-13)
DX: A41.9 Sepsis, unspecified organism (principal); C92.00 Acute myeloblastic leukemia, not having achieved remission; J96.01 Acute respiratory failure with hypoxia; J96.02 Acute respiratory failure with hypercapnia; E43 Unspecified severe protein-calorie malnutrition; N17.9 Acute kidney failure, unspecified; R65.21 Severe sepsis with septic shock; J69.0 Pneumonitis due to inhalation of food and vomit; Z99.11 Dependence on respirator [ventilator] status; Z94.2 Lung transplant status; D57.1 Sickle-cell disease without crisis; D61.818 Other pancytopenia; D69.59 Other secondary thrombocytopenia; E87.0 Hyperosmolality and hypernatremia; E87.2 Acidosis; E87.6 Hypokalemia; I08.1 Rheumatic disorders of both mitral and tricuspid valves; I50.9 Heart failure, unspecified; I11.0 Hypertensive heart disease with heart failure; I82.622 Acute embolism and thrombosis of deep veins of left upper extremity; I82.B12 Acute embolism and thrombosis of left subclavian vein; J44.9 Chronic obstructive pulmonary disease, unspecified; K71.9 Toxic liver disease, unspecified; M32.9 Systemic lupus erythematosus, unspecified; T79.7XXA Traumatic subcutaneous emphysema, initial encounter; Z85.3 Personal history of malignant neoplasm of breast; Z85.118 Personal history of other malignant neoplasm of bronchus and lung; Z86.73 Personal history of transient ischemic attack (TIA), and cerebral infarction without residual deficits; Z90.2 Acquired absence of lung [part of]; Z90.11 Acquired absence of right breast and nipple; Z92.21 Personal history of antineoplastic chemotherapy; E83.39 Other disorders of phosphorus metabolism; E83.42 Hypomagnesemia; E86.0 Dehydration; F12.90 Cannabis use, unspecified, uncomplicated; F41.9 Anxiety disorder, unspecified; G47.30 Sleep apnea, unspecified; G89.29 Other chronic pain; I27.20 Pulmonary hypertension, unspecified; K50.00 Crohn's disease of small intestine without complications; K76.1 Chronic passive congestion of liver; Y95 Nosocomial condition; Z51.5 Encounter for palliative care; Z66 Do not resuscitate; Z79.01 Long term (current) use of anticoagulants; Z79.899 Other long term (current) drug therapy; Z80.0 Family history of malignant neoplasm of digestive organs; Z82.49 Family history of ischemic heart disease and other diseases of the circulatory system; Z86.19 Personal history of other infectious and parasitic diseases; Z86.79 Personal history of other diseases of the circulatory system; Z87.01 Personal history of pneumonia (recurrent); Z87.442 Personal history of urinary calculi; Z87.891 Personal history of nicotine dependence; D46.Z Other myelodysplastic syndromes